=== PATIENT | male | born 1950 | race Caucasian/White ===

== ENCOUNTER → 2018-01-18 08:49 | Outpatient (CLI) | payer MEDICARE, SELFPAY | PROVIDERS: PCP Family Medicine; Visit Provider Family Medicine | DX: R00.2 Palpitations (principal) | CPT/HCPCS: 93005 ==

== ENCOUNTER 2018-04-08 12:17 | Observation (INO) ==
[2018-04-08 13:28] LABS: Alanine Aminotransferase 61 U/L (12-78); Albumin Level 3.8 gm/dL (3.4-5.0); Albumin/Globulin Ratio 0.9 (1.1-1.8); Alkaline Phosphatase 59 U/L (46-116); Aspartate Amino Transferase 38 U/L (15-37); Bilirubin,Total 1.1 mg/dL (0.2-1.0); Blood Urea Nitrogen 25 mg/dL (7-18); Carbon Dioxide 26 mmol/L (21.0-32.0); Chloride 97 mmol/L (98-107); Creatine Kinase 72 U/L (39-308); Globulin 4.2 gm/dl (1.3-3.2); Glucose 172 mg/dL (74-106); Sodium 135 mmol/L (136-145); Thyroid Stimulating Hormone 2.62 uIU/ml (0.358-3.740)
[2018-04-08 14:00] LABS: Acetone, Serum (Rapid) None Detected (None Detect)
[2018-04-08 14:18] LABS: Basophils % 0.2 % (0.1-2.0); Eosinophils % 0.1 % (0.1-12.0); Hematocrit 51.2 % (42.0-52.0); Hemoglobin 17.6 g/dL (14.1-18.0); Lymphocytes # 0.7 K/mm3 (0.7-4.5); Lymphocytes % 18.6 K/mm3 (10-50); Mean Corpuscular HGB Conc 34.3 g/dL (31.8-35.4); Mean Corpuscular Hemoglobin 30.4 pg (27.0-31.2); Mean Corpuscular Volume 88.6 fl (80-94); Monocytes # 0.3 K/mm3 (0.1-1.0); Monocytes % 8.1 % (1.7-9.3); Neutrophils # 2.9 K/mm3 (1.8-7.8); Platelet Count 117 K/mm3 (142-424); Red Blood Count 5.78 M/mm3 (4.60-6.20); Red Cell Distribution Width 12.5 % (11.5-17.5); White Blood Count 3.9 K/mm3 (4.8-10.8)
--- NOTE | 2018-04-08 15:57 | Consult Report ---
History of Present Illness Consult date: 04/08/18 Requesting physician: Bryon Chance Consult reason: chest pain Chief complaint: Chest pain, SOA Additional Medical History:: 1. Type 2 diabetes mellitus 2. Dyslipidemia 3. 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 Unstable angina pectoris, 04/08/18, with abnormal EKG History of present illness: 67-year-old white male with history of type 2 diabetes mellitus presents with increasing episodes of chest pain and shortness of breath over the last several weeks. Patient is a very active male but has noticed a decrease in exercise tolerance this week with associated left-sided chest pain radiating into the shoulder and the jaw. Not particularly associated with exertion but the shortness of breath is worse with exertion and improves with rest. Patient was seen in primary care office today with concern for unstable angina and therefore referred to cardiology for further evaluation. Patient's EKG is sinus with frequent ventricular ectopy and poor R wave progression anteriorly without acute ST segment changes. Due to the patient's symptoms and history of diabetes, it was felt patient was having unstable angina and the best course would be [facility] Medical History: Reports:: Diabetes Mellitus Type 2, Gastroesophageal Reflux Disease(GERD), Hyperlipidemia Meds Home Medications Medication Instructions Recorded Confirmed Type atorvastatin 10 mg tablet 10 mg PO QHS tab 04/08/18 04/08/18 History dapagliflozin 10 mg tablet 10 mg PO DAILY 04/08/18 04/08/18 History metformin 1,000 mg tablet 1,000 mg PO BID 04/08/18 04/08/18 History multivitamin tablet 1 tab PO DAILY 04/08/18 04/08/18 History pantoprazole 40 mg tablet,delayed 40 mg PO DAILY 04/08/18 04/08/18 History release tamsulosin 0.4 mg capsule 0.4 mg PO DAILY 04/08/18 04/08/18 History Allergies Allergy/AdvReac Type Severity Reaction Status Date / Time ceftriaxone [From Rocephin] Allergy Mild Verified 04/08/18 14:54 Review of Systems - *Cardiovascular Reports chest pain, Reports shortness of breath with activity - *Respiratory Reports shortness of breath with activity - *Gastrointestinal Denies bright, red blood in stools, Denies loose stools - *Genitourinary Denies blood in urine - *Musculoskeletal Denies joint pain - *Neurologic Denies loss of vision, Denies memory loss, Denies other visual disturbances Exam Vital signs and Labs for Last 24 Hours: Laboratory Results - last 24 hr 04/08/18 12:42: Sodium 135 L, Potassium 4.0, Chloride 97 L, Carbon Dioxide 26, Anion Gap 16.0 H, BUN 25 H, Creatinine 1.14, Estimated GFR 64, Est GFR ( Amer) 78, Glucose 172 H, Calcium 9.0, Total Bilirubin 1.1 H, AST 38 H, ALT 61, Alkaline Phosphatase 59, Total Creatine Kinase 72, CK-MB (CK-2) 1.0, CK-MB (CK- 2) Rel Index 1.4, Troponin I < 0.02, Total Protein 8.0, Albumin 3.8, Globulin 4.2 H, Albumin/Globulin Ratio 0.9 L, TSH 2.62, Acetone Level None detected 04/08/18 12:42: Hemoglobin A1c 7.4 H 04/08/18 12:42: WBC 3.9 L, RBC 5.78, Hgb 17.6, Hct 51.2, MCV 88.6, MCH 30.4, MCHC 34.3, RDW 12.5, Plt Count 117 L, MPV 8.0, Neut % (Auto) 73.0, Lymph % (Auto) 18.6, [place] % (Auto) 8.1, Eos % (Auto) 0.1, Baso % (Auto) 0.2, Neut # (Auto) 2.9, Lymph # (Auto) 0.7, [place] # (Auto) 0.3, Eos # (Auto) 0.0, Baso # (Auto) 0.0 - *Routine Neck Exam Present: supple. Absent: JVD, carotid bruit - *Routine Respiratory Exam Present: CTA bilaterally. Absent: accessory muscle use, rales, rhonchi, wheezes - *Routine Cardiovascular Exam Present: RRR. Absent: murmur, gallop, rubs - *Routine Abdominal Exam Present: soft. Absent: tenderness, distended, guarding - *Routine Extremities Exam Absent: edema, calf tenderness Comments: Left below the knee amputation - *Routine Neurological Exam Present: alert, oriented X3, moving all extremities Assessment and Plan (1) Unstable angina pectoris Current visit: Yes Status: Acute Category: Medical Code(s): I20.0 - Unstable angina (2) Abnormal ECG Current visit: No Status: Acute Category: Medical Code(s): R94.31 - Abnormal electrocardiogram [ECG] [EKG] (3) Dyspnea Current visit: No Status: Acute Qualifiers: Dyspnea type: dyspnea on exertion Qualified Code(s): R06.09 - Other forms of dyspnea Category: Medical Code(s): R06.00 - Dyspnea, unspecified (4) DM2 (diabetes mellitus, type 2) Current visit: No Status: Chronic Qualifiers: Diabetes mellitus turbine technician insulin use: without turbine technician use Diabetes mellitus complication status: without complication Qualified Code(s): E11.9 - Type 2 diabetes mellitus without complications Category: Medical Code(s): E11.9 - Type 2 diabetes mellitus without complications (5) Family history of ischemic heart disease before age 50 Current visit: No Status: Chronic Category: Medical Code(s): Z82.49 - Family history of ischemic heart disease and other diseases of the circulatory system (6) HLD (hyperlipidemia) Current visit: No Status: Chronic Qualifiers: Hyperlipidemia type: unspecified Qualified Code(s): E78.5 - Hyperlipidemia, unspecified Category: Medical Code(s): E78.5 - Hyperlipidemia, unspecified - Assessment and plan all Dx Assessment and Plan for all problems:: 1. Start aspirin 324 mg today then 81 mg daily thereafter. 2. Start heparin drip 3. Start nitroglycerin paste 4. Start beta-emmett therapy 5. Obtain echocardiogram today to evaluate for wall motion abnormality in light of abnormal EKG. 6. Plan for cardiac catheterization tomorrow to evaluate unstable angina and diabetic patient.
--- NOTE | 2018-04-08 15:57 | History & Physical Report ---
*Admission Date: 04/08/18 <Akila Mead 04/08/18 16:03> *Chief complaint: Chest pain <Akila Mead 04/08/18 16:03> *History of present illness: Mr. Riley is a 67yo male who presented to the office of [facility] today with a history of over 1 week of CP. He stated he felt like he got "hit by a truck" and at first thought it may be some of his medications causing the pain. The patient c/o pain in the center of the chest and it radiates to his left shoulder and neck and into the back. It has been constant and he has been having night sweats the past 2-3 nights to the point of changing his sheets and blankets. The pain began to get worse Thursday and he now has trouble even taking a deep breath. His blood pressure has been elevated. He was evaluated in the office and had labs and an EKG. His initial troponin was normal and his EKG showed nonspecific ST changes and a poor R wave progression. His case was discussed with cardiology and it was felt he would need a cath tomorrow am. He went down to the cardiology office for preop testing and they felt he needed to be admitted overnight and placed on a heparin drip. He will have the cath tomorrow am. <Akila Mead 04/08/18 17:18> [facility] History Medical History: Reports:: Diabetes Mellitus Type 2, Gastroesophageal Reflux Disease(GERD), Hyperlipidemia <Akila Mead 04/08/18 16:03> Comment: insomnia, left leg compound tib/fib fx with post op osteomyelitis that required a left leg BKA <Akila Mead 04/08/18 16:03> Other Surgeries: Yes: Other (left hand, back sx, multiple sx's for left leg osteomyelitis) <Akila Mead 04/08/18 16:03> Amputation: Yes (left BKA) <Akila Mead 04/08/18 16:03> Fractures: Yes (left tib/fib) <Akila Mead 04/08/18 16:03> - *Social History Smoking Status: Never smoker <Akila Mead 04/08/18 16:03> *Family Hx:: Coronary Artery Disease, Diabetes, Hyperlipidemia, Hypertension <[place] - 04/08/18 17:18> Review of Systems - Constitutional Reports fatigue, Reports night sweats, Reports weakness, Reports weight loss <Akila Mead 04/08/18 16:03> - Eyes Denies blurry vision, Denies double vision <Akila Mead 04/08/18 16:03> - ENT Denies nasal congestion, Denies sore throat <Akila Mead 04/08/18 16:03> - *Cardiovascular Reports chest pain, Reports shortness of breath, Denies rapid, pounding, or irregular heartbeat <Akila Mead 04/08/18 16:03> - *Respiratory Reports shortness of breath, Denies cough <Akila Mead 04/08/18 16:03> - *Gastrointestinal Reports loose stools, Denies abdominal pain, Denies nausea, Denies vomiting <Akila Mead 04/08/18 16:03> - *Genitourinary Denies difficulty urinating, Denies painful urination, Denies blood in urine <Akila Mead 04/08/18 16:03> - *Musculoskeletal Reports joint pain (pain from chest radiates to left shoulder and into back) <Akila Mead 04/08/18 16:03> - *Neurologic Reports weakness, Denies headache(s) <Akila Mead 04/08/18 16:03> Meds Home Medications Medication Instructions Recorded Confirmed Type atorvastatin 10 mg tablet 10 mg PO QHS tab 04/08/18 04/08/18 History dapagliflozin 10 mg tablet 10 mg PO DAILY 04/08/18 04/08/18 History metformin 1,000 mg tablet 1,000 mg PO BID 04/08/18 04/08/18 History multivitamin tablet 1 tab PO DAILY 04/08/18 04/08/18 History pantoprazole 40 mg tablet,delayed 40 mg PO DAILY 04/08/18 04/08/18 History release tamsulosin 0.4 mg capsule 0.4 mg PO DAILY 04/08/18 04/08/18 History <[place],Bryon - 04/08/18 17:33> Allergies Allergy/AdvReac Type Severity Reaction Status Date / Time ceftriaxone [From Rocephin] Allergy Mild Verified 04/08/18 14:54 <Bryon Chance - 04/08/18 17:33> Exam Vital signs and Labs for Last 24 Hours: Temp Pulse Resp BP Pulse Ox 97.8 F 46 L 18 150/77 H 95 04/08/18 16:26 04/08/18 16:26 04/08/18 16:26 04/08/18 16:26 04/08/18 16:26 Laboratory Results - last 24 hr 04/08/18 12:42: Sodium 135 L, Potassium 4.0, Chloride 97 L, Carbon Dioxide 26, Anion Gap 16.0 H, BUN 25 H, Creatinine 1.14, Estimated GFR 64, Est GFR ( Amer) 78, Glucose 172 H, Calcium 9.0, Total Bilirubin 1.1 H, AST 38 H, ALT 61, Alkaline Phosphatase 59, Total Creatine Kinase 72, CK-MB (CK-2) 1.0, CK-MB (CK- 2) Rel Index 1.4, Troponin I < 0.02, Total Protein 8.0, Albumin 3.8, Globulin 4.2 H, Albumin/Globulin Ratio 0.9 L, TSH 2.62, Acetone Level None detected 04/08/18 12:42: Hemoglobin A1c 7.4 H 04/08/18 12:42: WBC 3.9 L, RBC 5.78, Hgb 17.6, Hct 51.2, MCV 88.6, MCH 30.4, MCHC 34.3, RDW 12.5, Plt Count 117 L, MPV 8.0, Neut % (Auto) 73.0, Lymph % (Auto) 18.6, [place] % (Auto) 8.1, Eos % (Auto) 0.1, Baso % (Auto) 0.2, Neut # (Auto) 2.9, Lymph # (Auto) 0.7, [place] # (Auto) 0.3, Eos # (Auto) 0.0, Baso # (Auto) 0.0 04/08/18 16:45: APTT 28.4 <Bryon Chance - 04/08/18 17:33> Laboratory Results - last 24 hr 04/08/18 12:42: Sodium 135 L, Potassium 4.0, Chloride 97 L, Carbon Dioxide 26, Anion Gap 16.0 H, BUN 25 H, Creatinine 1.14, Estimated GFR 64, Est GFR ( Amer) 78, Glucose 172 H, Calcium 9.0, Total Bilirubin 1.1 H, AST 38 H, ALT 61, Alkaline Phosphatase 59, Total Creatine Kinase 72, CK-MB (CK-2) 1.0, CK-MB (CK- 2) Rel Index 1.4, Troponin I < 0.02, Total Protein 8.0, Albumin 3.8, Globulin 4.2 H, Albumin/Globulin Ratio 0.9 L, TSH 2.62, Acetone Level None detected 04/08/18 12:42: Hemoglobin A1c 7.4 H 04/08/18 12:42: WBC 3.9 L, RBC 5.78, Hgb 17.6, Hct 51.2, MCV 88.6, MCH 30.4, MCHC 34.3, RDW 12.5, Plt Count 117 L, MPV 8.0, Neut % (Auto) 73.0, Lymph % (Auto) 18.6, [place] % (Auto) 8.1, Eos % (Auto) 0.1, Baso % (Auto) 0.2, Neut # (Auto) 2.9, Lymph # (Auto) 0.7, [place] # (Auto) 0.3, Eos # (Auto) 0.0, Baso # (Auto) 0.0 <Akila Mead - 04/08/18 16:03> I & O for Last 24 hours: Intake & Output 04/06/18 04/07/18 04/08/18 04/09/18 11:59 11:59 11:59 11:59 Weight 219 lb 3.995 oz <[place],Bryon - 04/08/18 17:33> - Constitutional no acute distress <Akila Mead - 04/08/18 16:03> - *Routine HEENT Exam Head: Present: normocephalic <Akila Mead - 04/08/18 16:03> Eye: Present: EOMI, PERRL <Akila Mead - 04/08/18 16:03> ENT: Present: mucous membranes moist <Akila Mead - 04/08/18 16:03> - *Routine Neck Exam Present: supple. Absent: lymphadenopathy <Akila Mead - 04/08/18 16:03> - *Routine Respiratory Exam Present: CTA bilaterally <Akila Mead 04/08/18 16:03> - *Routine Cardiovascular Exam Present: RRR (frequent ectopics) <Akila Mead 04/08/18 16:03> - *Routine Abdominal Exam Present: soft, normoactive bowel sounds. Absent: tenderness <Akila Mead 04/08/18 16:03> - *Routine Extremities Exam Present: amputation (left leg). Absent: cyanosis, clubbing, edema <Akila Mead 04/08/18 16:03> - *Routine Skin Exam Present: warm. Absent: rash [facility] - *Routine Neurological Exam Present: alert, oriented X3 [facility]08[facility] 16:03> H&P: Result - Impressions CXR -nothing acute <Akila Mead 04/08/18 16:05> Assessment and Plan (1) Chest pain Current visit: Yes Status: Acute Category: Medical Code(s): R07.9 - Chest pain, unspecified (2) Abnormal ECG Current visit: No Status: Acute Category: Medical Code(s): R94.31 - Abnormal electrocardiogram [ECG] [EKG] (3) Dyspnea Current visit: No Status: Acute Qualifiers: Dyspnea type: dyspnea on exertion Qualified Code(s): R06.09 - Other forms of dyspnea Category: Medical Code(s): R06.00 - Dyspnea, unspecified (4) Weight loss Current visit: No Status: Acute Category: Medical Code(s): R63.4 - Abnormal weight loss (5) DM2 (diabetes mellitus, type 2) Current visit: No Status: Chronic Qualifiers: Diabetes mellitus mcfp insulin use: without termite technician use Diabetes mellitus complication status: without complication Qualified Code(s): E11.9 - Type 2 diabetes mellitus without complications Category: Medical Code(s): E11.9 - Type 2 diabetes mellitus without complications (6) Family history of ischemic heart disease before age 50 Current visit: No Status: Chronic Category: Medical Code(s): Z82.49 - Family history of ischemic heart disease and other diseases of the circulatory system (7) HLD (hyperlipidemia) Current visit: No Status: Chronic Qualifiers: Hyperlipidemia type: unspecified Qualified Code(s): E78.5 - Hyperlipidemia, unspecified Category: Medical Code(s): E78.5 - Hyperlipidemia, unspecified (8) History of left below knee amputation Current visit: No Status: Chronic Category: Medical Code(s): Z89.512 - Acquired absence of left leg below knee (9) History of osteomyelitis Current visit: No Status: Chronic Category: Medical Code(s): Z87.39 - Personal history of other diseases of the musculoskeletal system and connective tissue <Bryon Chance - 04/08/18 17:33> (1) Chest pain Current visit: Yes Status: Acute Category: Medical Code(s): R07.9 - Chest pain, unspecified (2) Abnormal ECG Current visit: No Status: Acute Category: Medical Code(s): R94.31 - Abnormal electrocardiogram [ECG] [EKG] (3) Dyspnea Current visit: No Status: Acute Qualifiers: Dyspnea type: dyspnea on exertion Qualified Code(s): R06.09 - Other forms of dyspnea Category: Medical Code(s): R06.00 - Dyspnea, unspecified (4) Weight loss Current visit: No Status: Acute Category: Medical Code(s): R63.4 - Abnormal weight loss (5) DM2 (diabetes mellitus, type 2) Current visit: No Status: Chronic Qualifiers: Diabetes mellitus termite technician insulin use: without termite technician use Diabetes mellitus complication status: without complication Qualified Code(s): E11.9 - Type 2 diabetes mellitus without complications Category: Medical Code(s): E11.9 - Type 2 diabetes mellitus without complications (6) Family history of ischemic heart disease before age 50 Current visit: No Status: Chronic Category: Medical Code(s): Z82.49 - Family history of ischemic heart disease and other diseases of the circulatory system (7) HLD (hyperlipidemia) Current visit: No Status: Chronic Qualifiers: Hyperlipidemia type: unspecified Qualified Code(s): E78.5 - Hyperlipidemia, unspecified Category: Medical Code(s): E78.5 - Hyperlipidemia, unspecified (8) History of left below knee amputation Current visit: No Status: Chronic Category: Medical Code(s): Z89.512 - Acquired absence of left leg below knee (9) History of osteomyelitis Current visit: No Status: Chronic Category: Medical Code(s): Z87.39 - Personal history of other diseases of the musculoskeletal system and connective tissue <Akila Mead - 04/08/18 17:17> - Assessment and plan all Dx Assessment and Plan for all problems:: Saw patient in the office and again here in the hospital, agree with above note. <Bryon Chance - 04/08/18 17:33> Pt will be admitted and started on a heparin drip. He will be scheduled for a heart cath tomorrow am. Cardiology consult appreciated. <Akila Mead - 04/08/18 17:18>
--- NOTE | 2018-04-09 07:38 | Pharmacy Consult Notes ---
[facility] Pharmacy VTE Monitoring - Patient Demographics Admission date: 04/08/18 Report Date: 04/09/18 Time: 07:38 Allergies/Adverse Reactions: Patient Allergies ceftriaxone [From Rocephin] Allergy (Mild, Verified 04/08/18 14:54) Height: 1.88 m Weight: 99.45 kg Patient Problems: Current Active Problems Chest pain (Acute) - VTE Risk Labs: VTE Related Lab Results Hgb 17.6 g/dL (14.1-18.0) 04/08/18 12:42 Hct 51.2 % (42.0-52.0) 04/08/18 12:42 Plt Count 117 K/mm3 (142-424) L 04/08/18 12:42 APTT 34.9 seconds (23.6-34.0) H 04/08/18 23:05 BUN 25 mg/dL (7-18) H 04/08/18 12:42 Creatinine 1.14 mg/dL (0.70-1.30) 04/08/18 12:42 Was VTE Risk Assessment Performed: Yes VTE Score: 4 VTE Risk Level: Low Risk Clinical Trial Participant: No - Prophylaxis VTE Prophylaxis Ordered?: Yes Types of VTE Prophylaxis: TEDS Knee High, Pharmacological (heparin drip)
--- NOTE | 2018-04-09 08:08 | Progress Note ---
<Akila Mead - Last Filed: 04/09/18 08:06> Internal Medicine - PN: Subj *Date: 04/09/18 *Time: 08:07 Interval history: Patient states he is not feeling well this morning. He tried to get up and move around and did get short of breath. He denies any more chest pain. He states he just feels weak and tired. Exam Vital signs and Labs for Last 24 Hours: Temp Pulse Resp BP Pulse Ox 97.9 F 60 18 112/67 93 L 04/09/18 07:33 04/09/18 07:33 04/09/18 07:33 04/09/18 07:33 04/09/18 07:33 Laboratory Results - last 24 hr 04/08/18 12:42: Sodium 135 L, Potassium 4.0, Chloride 97 L, Carbon Dioxide 26, Anion Gap 16.0 H, BUN 25 H, Creatinine 1.14, Estimated GFR 64, Est GFR ( Amer) 78, Glucose 172 H, Calcium 9.0, Total Bilirubin 1.1 H, AST 38 H, ALT 61, Alkaline Phosphatase 59, Total Creatine Kinase 72, CK-MB (CK-2) 1.0, CK-MB (CK- 2) Rel Index 1.4, Troponin I < 0.02, Total Protein 8.0, Albumin 3.8, Globulin 4.2 H, Albumin/Globulin Ratio 0.9 L, TSH 2.62, Acetone Level None detected 04/08/18 12:42: Hemoglobin A1c 7.4 H 04/08/18 12:42: WBC 3.9 L, RBC 5.78, Hgb 17.6, Hct 51.2, MCV 88.6, MCH 30.4, MCHC 34.3, RDW 12.5, Plt Count 117 L, MPV 8.0, Neut % (Auto) 73.0, Lymph % (Auto) 18.6, [place] % (Auto) 8.1, Eos % (Auto) 0.1, Baso % (Auto) 0.2, Neut # (Auto) 2.9, Lymph # (Auto) 0.7, Randolph # (Auto) 0.3, Eos # (Auto) 0.0, Baso # (Auto) 0.0 04/08/18 16:45: APTT 28.4 04/08/18 23:05: APTT 34.9 H 04/09/18 05:44: POC Glucose 153 H 04/09/18 07:30: APTT 38.1 H I & O for Last 24 hours: Intake & Output 04/06/18 04/07/18 04/08/18 04/09/18 11:59 11:59 11:59 11:59 Intake Total 506 / 506 Balance 506 / 506 Weight 219 lb 4 oz - Constitutional no acute distress - *Routine Respiratory Exam Present: CTA bilaterally - *Routine Cardiovascular Exam Present: RRR - *Routine Abdominal Exam Present: soft, normoactive bowel sounds. Absent: tenderness - *Routine Extremities Exam Absent: cyanosis, clubbing, edema Assessment and Plan (1) Chest pain Current visit: Yes Status: Acute Category: Medical Code(s): R07.9 - Chest pain, unspecified (2) Abnormal ECG Current visit: No Status: Acute Category: Medical Code(s): R94.31 - Abnormal electrocardiogram [ECG] [EKG] (3) Dyspnea Current visit: No Status: Acute Qualifiers: Dyspnea type: dyspnea on exertion Qualified Code(s): R06.09 - Other forms of dyspnea Category: Medical Code(s): R06.00 - Dyspnea, unspecified (4) Weight loss Current visit: No Status: Acute Category: Medical Code(s): R63.4 - Abnormal weight loss (5) DM2 (diabetes mellitus, type 2) Current visit: No Status: Chronic Qualifiers: Diabetes mellitus health promotion officer insulin use: without shelter use Diabetes mellitus complication status: without complication Qualified Code(s): E11.9 - Type 2 diabetes mellitus without complications Category: Medical Code(s): E11.9 - Type 2 diabetes mellitus without complications (6) Family history of ischemic heart disease before age 50 Current visit: No Status: Chronic Category: Medical Code(s): Z82.49 - Family history of ischemic heart disease and other diseases of the circulatory system (7) HLD (hyperlipidemia) Current visit: No Status: Chronic Qualifiers: Hyperlipidemia type: unspecified Qualified Code(s): E78.5 - Hyperlipidemia, unspecified Category: Medical Code(s): E78.5 - Hyperlipidemia, unspecified (8) History of left below knee amputation Current visit: No Status: Chronic Category: Medical Code(s): Z89.512 - Acquired absence of left leg below knee (9) History of osteomyelitis Current visit: No Status: Chronic Category: Medical Code(s): Z87.39 - Personal history of other diseases of the musculoskeletal system and connective tissue - Assessment and plan all Dx Assessment and Plan for all problems:: Patient to have a heart cath today. <Bryon Chance - Last Filed: 04/09/18 08:51> Exam Vital signs and Labs for Last 24 Hours: Temp Pulse Resp BP Pulse Ox 97.9 F 60 16 112/67 94 L 04/09/18 07:33 04/09/18 07:33 04/09/18 08:00 04/09/18 07:33 04/09/18 08:00 Laboratory Results - last 24 hr 04/08/18 12:42: Sodium 135 L, Potassium 4.0, Chloride 97 L, Carbon Dioxide 26, Anion Gap 16.0 H, BUN 25 H, Creatinine 1.14, Estimated GFR 64, Est GFR ( Amer) 78, Glucose 172 H, Calcium 9.0, Total Bilirubin 1.1 H, AST 38 H, ALT 61, Alkaline Phosphatase 59, Total Creatine Kinase 72, CK-MB (CK-2) 1.0, CK-MB (CK- 2) Rel Index 1.4, Troponin I < 0.02, Total Protein 8.0, Albumin 3.8, Globulin 4.2 H, Albumin/Globulin Ratio 0.9 L, TSH 2.62, Acetone Level None detected 04/08/18 12:42: Hemoglobin A1c 7.4 H 04/08/18 12:42: WBC 3.9 L, RBC 5.78, Hgb 17.6, Hct 51.2, MCV 88.6, MCH 30.4, MCHC 34.3, RDW 12.5, Plt Count 117 L, MPV 8.0, Neut % (Auto) 73.0, Lymph % (Auto) 18.6, [place] % (Auto) 8.1, Eos % (Auto) 0.1, Baso % (Auto) 0.2, Neut # (Auto) 2.9, Lymph # (Auto) 0.7, [place] # (Auto) 0.3, Eos # (Auto) 0.0, Baso # (Auto) 0.0 04/08/18 16:45: APTT 28.4 04/08/18 23:05: APTT 34.9 H 04/09/18 05:44: POC Glucose 153 H 04/09/18 07:30: APTT 38.1 H I & O for Last 24 hours: Intake & Output 04/06/18 04/07/18 04/08/18 04/09/18 11:59 11:59 11:59 11:59 Intake Total 506 / 506 Balance 506 / 506 Weight 219 lb 4 oz Assessment and Plan (1) Chest pain Current visit: Yes Status: Acute Category: Medical Code(s): R07.9 - Chest pain, unspecified (2) Abnormal ECG Current visit: No Status: Acute Category: Medical Code(s): R94.31 - Abnormal electrocardiogram [ECG] [EKG] (3) Dyspnea Current visit: No Status: Acute Qualifiers: Dyspnea type: dyspnea on exertion Qualified Code(s): R06.09 - Other forms of dyspnea Category: Medical Code(s): R06.00 - Dyspnea, unspecified (4) Weight loss Current visit: No Status: Acute Category: Medical Code(s): R63.4 - Abnormal weight loss (5) DM2 (diabetes mellitus, type 2) Current visit: No Status: Chronic Qualifiers: Diabetes mellitus health promotion officer insulin use: without shelter use Diabetes mellitus complication status: without complication Qualified Code(s): E11.9 - Type 2 diabetes mellitus without complications Category: Medical Code(s): E11.9 - Type 2 diabetes mellitus without complications (6) Family history of ischemic heart disease before age 50 Current visit: No Status: Chronic Category: Medical Code(s): Z82.49 - Family history of ischemic heart disease and other diseases of the circulatory system (7) HLD (hyperlipidemia) Current visit: No Status: Chronic Qualifiers: Hyperlipidemia type: unspecified Qualified Code(s): E78.5 - Hyperlipidemia, unspecified Category: Medical Code(s): E78.5 - Hyperlipidemia, unspecified (8) History of left below knee amputation Current visit: No Status: Chronic Category: Medical Code(s): Z89.512 - Acquired absence of left leg below knee (9) History of osteomyelitis Current visit: No Status: Chronic Category: Medical Code(s): Z87.39 - Personal history of other diseases of the musculoskeletal system and connective tissue - Assessment and plan all Dx Assessment and Plan for all problems:: Saw patient, agree with above note.
--- NOTE | 2018-04-09 09:30 | Progress Note ---
Addendum entered and electronically signed by DYLAN Kelley 04/09/18 13:44: Pt had LHC today with stent placed to LAD. Preserved LVEF noted. Echo not performed, will consider ordering as outpatient. OK for discharge home later today. Recommended meds: ASA 81 mg daily Brilinta 90 mg BID Atorvastatin 40 mg daily Metoprolol tartrate 12.5 mg BID Follow up in our office in one week. Original Note: Subjective Date: 04/09/18 Time: 09:29 Principal diagnosis: Unstable angina pectoris Interval history: 67-year-old white male in bed in no acute distress. Chest pain resolved with nitroglycerin paste overnight. Patient still feels fatigued and short of breath with minimal exertion. Cardiac troponins overnight normal. Patient is ready for cardiac catheterization. Exam Vital signs and Labs for Last 24 Hours: Temp Pulse Resp BP Pulse Ox 97.9 F 60 16 112/67 94 L 04/09/18 07:33 04/09/18 07:33 04/09/18 08:00 04/09/18 07:33 04/09/18 08:00 Laboratory Results - last 24 hr 04/08/18 12:42: Sodium 135 L, Potassium 4.0, Chloride 97 L, Carbon Dioxide 26, Anion Gap 16.0 H, BUN 25 H, Creatinine 1.14, Estimated GFR 64, Est GFR ( Amer) 78, Glucose 172 H, Calcium 9.0, Total Bilirubin 1.1 H, AST 38 H, ALT 61, Alkaline Phosphatase 59, Total Creatine Kinase 72, CK-MB (CK-2) 1.0, CK-MB (CK- 2) Rel Index 1.4, Troponin I < 0.02, Total Protein 8.0, Albumin 3.8, Globulin 4.2 H, Albumin/Globulin Ratio 0.9 L, TSH 2.62, Acetone Level None detected 04/08/18 12:42: Hemoglobin A1c 7.4 H 04/08/18 12:42: WBC 3.9 L, RBC 5.78, Hgb 17.6, Hct 51.2, MCV 88.6, MCH 30.4, MCHC 34.3, RDW 12.5, Plt Count 117 L, MPV 8.0, Neut % (Auto) 73.0, Lymph % (Auto) 18.6, [place] % (Auto) 8.1, Eos % (Auto) 0.1, Baso % (Auto) 0.2, Neut # (Auto) 2.9, Lymph # (Auto) 0.7, [place] # (Auto) 0.3, Eos # (Auto) 0.0, Baso # (Auto) 0.0 04/08/18 16:45: APTT 28.4 04/08/18 23:05: APTT 34.9 H 04/09/18 05:44: POC Glucose 153 H 04/09/18 07:30: APTT 38.1 H I & O for Last 24 hours: Intake & Output 04/06/18 04/07/18 04/08/18 04/09/18 11:59 11:59 11:59 11:59 Intake Total 506 / 506 Balance 506 / 506 Weight 219 lb 4 oz - *Routine Respiratory Exam Present: CTA bilaterally. Absent: accessory muscle use, rales, rhonchi, wheezes - *Routine Cardiovascular Exam Present: RRR. Absent: murmur, gallop, rubs Progress Note: A&P (1) Unstable angina pectoris Status: Acute Current Visit: Yes (2) Abnormal ECG Status: Acute Current Visit: No (3) Dyspnea Status: Acute Current Visit: No (4) DM2 (diabetes mellitus, type 2) Status: Chronic Current Visit: No (5) Family history of ischemic heart disease before age 50 Status: Chronic Current Visit: No (6) HLD (hyperlipidemia) Status: Chronic Current Visit: No Assessment and Plan for All Diagnoses:: Proceed with left heart catheterization today. Further recommendations to follow. Echocardiogram results pending.
--- NOTE | 2018-04-09 14:43 | Pharmacy Consult Notes ---
[facility] Pharmacy Heparin Dosing - Demographic Data Admission date:: 04/08/18 Date: 04/09/18 Time: 14:38 Allergies/Adverse Reactions: Allergies Allergy/AdvReac Type Severity Reaction Status Date / Time ceftriaxone [From Rocephin] Allergy Mild Verified 04/08/18 14:54 Height: 1.88 m Weight: 99.45 kg - Indication Medication therapy:: Heparin Patient Problems: Current Active Problems Chest pain (Acute) Unstable angina pectoris (Acute) CVA?: No Bleeding problem?: No Kidney disease?: No RI?: No Desired PTT range:: 60-80 seconds - Monitoring Dose Monitor 1 Date: 04/08/18 Time: 16:30 PTT Result:: 28.4 Infusion Rate:: 1000 UNITS/HR=20 ML/HR Comment:: BASELINE PTT VVC=862 4000 UNIT BOLUS Dose Monitor 2 Date: 04/08/18 Time: 23:00 PTT Result:: 34.9 Infusion Rate:: 25 ML/HR Dose Monitor 3 Date: 04/09/18 Time: 07:00 PTT Result:: 38.1 Infusion Rate:: 29 ML/HR - Core Measures Is INR > or = 2 at discharge?: No Most Recent Labs:: Laboratory Results - last 24 hr 04/08/18 16:45: APTT 28.4 04/08/18 23:05: APTT 34.9 H 04/09/18 05:44: POC Glucose 153 H 04/09/18 07:30: APTT 38.1 H 04/09/18 12:23: Activated Clotting Time 374 H* If INR was < than 2.0 why was therapy stopped?: PATIENT WENT TO [employer] [employer] AND RECEIVED A STENT...HEPARIN DRIP DC'Paul BY [facility] Were Heparin and Warfarin started on the same day?: No If not, why?: NOT INDICATED...RECEIVED STENT IN [employer]
[2018-04-10 06:00] LABS: Basophils % 0.4 % (0.1-2.0); Eosinophils % 0.6 % (0.1-12.0); Hematocrit 41.2 % (42.0-52.0); Hemoglobin 15.5 g/dL (14.1-18.0); Lymphocytes # 1.1 K/mm3 (0.7-4.5); Lymphocytes % 27.4 K/mm3 (10-50); Mean Corpuscular HGB Conc 37.7 g/dL (31.8-35.4); Mean Corpuscular Volume 87.6 fl (80-94); Mean Platelet Volume 7.9 fl (7.4-10.4); Monocytes # 0.4 K/mm3 (0.1-1.0); Monocytes % 10.5 % (1.7-9.3); Neutrophils # 2.5 K/mm3 (1.8-7.8); Neutrophils % 61.1 % (37.0-80.0); Platelet Count 115 K/mm3 (142-424); Red Cell Distribution Width 12.3 % (11.5-17.5); White Blood Count 4.1 K/mm3 (4.8-10.8)
[2018-04-10 06:04] LABS: Anion Gap 12.1 mEq/L (5-15); Calcium 8.3 mg/dL (8.5-10.1); Potassium 4.1 mmoL/L (3.5-5.1)
--- NOTE | 2018-04-10 09:32 | Progress Note ---
Internal Medicine - PN: Subj *Date: 04/10/18 *Time: 09:29 Interval history: Patient did well overnight, no chest pain, ready to go home. Exam Vital signs and Labs for Last 24 Hours: Temp Pulse Resp BP Pulse Ox 98.0 F 89 16 100/66 L 92 L 04/10/18 07:57 04/10/18 07:37 04/10/18 07:37 04/10/18 07:37 04/10/18 07:37 Laboratory Results - last 24 hr 04/09/18 12:23: Activated Clotting Time 374 H* 04/10/18 05:50: WBC 4.1 L, RBC 4.70, Hgb 15.5, Hct 41.2 L, MCV 87.6, MCH 33.0 H, MCHC 37.7 H, RDW 12.3, Plt Count 115 L, MPV 7.9, Neut % (Auto) 61.1, Lymph % (Auto) 27.4, [place] % (Auto) 10.5 H, Eos % (Auto) 0.6, Baso % (Auto) 0.4, Neut # (Auto) 2.5, Lymph # (Auto) 1.1, [place] # (Auto) 0.4, Eos # (Auto) 0.0, Baso # (Auto) 0.0 04/10/18 05:50: Sodium 136, Potassium 4.1, Chloride 100, Carbon Dioxide 28, Anion Gap 12.1, BUN 18 D, Creatinine 1.02, Estimated Creat Clear 100, Estimated GFR 73, Est GFR ( Amer) 88, Glucose 164 H, Calcium 8.3 L I & O for Last 24 hours: Intake & Output 04/07/18 04/08/18 04/09/18 04/10/18 11:59 11:59 11:59 11:59 Intake Total 506 / 506 986 / 986 Output Total 350 / 350 Balance 506 / 506 636 / 636 Weight 219 lb 4 oz 220 lb 7 oz - Constitutional no acute distress - *Routine HEENT Exam Head: Present: normocephalic Eye: Present: EOMI, PERRL ENT: Present: mucous membranes moist - *Routine Neck Exam Present: supple. Absent: lymphadenopathy - *Routine Respiratory Exam Present: CTA bilaterally - *Routine Cardiovascular Exam Present: RRR - *Routine Abdominal Exam Present: tenderness - *Routine Extremities Exam Absent: cyanosis, clubbing, edema - *Routine Skin Exam Present: warm. Absent: rash - *Routine Neurological Exam Present: alert, oriented X3 Assessment and Plan (1) Unstable angina pectoris Current visit: Yes Status: Acute Category: Medical Code(s): I20.0 - Unstable angina (2) Abnormal ECG Current visit: No Status: Acute Category: Medical Code(s): R94.31 - Abnormal electrocardiogram [ECG] [EKG] (3) Dyspnea Current visit: No Status: Acute Qualifiers: Dyspnea type: dyspnea on exertion Qualified Code(s): R06.09 - Other forms of dyspnea Category: Medical Code(s): R06.00 - Dyspnea, unspecified (4) DM2 (diabetes mellitus, type 2) Current visit: No Status: Chronic Qualifiers: Diabetes mellitus snf insulin use: without snf use Diabetes mellitus complication status: without complication Qualified Code(s): E11.9 - Type 2 diabetes mellitus without complications Category: Medical Code(s): E11.9 - Type 2 diabetes mellitus without complications (5) Family history of ischemic heart disease before age 50 Current visit: No Status: Chronic Category: Medical Code(s): Z82.49 - Family history of ischemic heart disease and other diseases of the circulatory system (6) HLD (hyperlipidemia) Current visit: No Status: Chronic Qualifiers: Hyperlipidemia type: unspecified Qualified Code(s): E78.5 - Hyperlipidemia, unspecified Category: Medical Code(s): E78.5 - Hyperlipidemia, unspecified (7) CAD (coronary artery disease), [place] coronary artery Current visit: Yes Status: Acute Category: Medical Code(s): I25.10 - Atherosclerotic heart disease of [place] coronary artery without angina pectoris (8) Status post insertion of drug-eluting stent into left anterior descending (LAD) artery Current visit: Yes Status: Acute Category: Medical Code(s): Z95.5 - Presence of coronary angioplasty implant and graft - Assessment and plan all Dx Assessment and Plan for all problems:: OK for discharge today. Patient already has his Brilinta Rx. He will resume Metformin on 04/12/18. Plan f/u with Dr. Salinas in [address] Chance in 2 weeks.
--- NOTE | 2018-04-11 22:33 | Discharge Summary ---
General - General Admission date:: 04/08/18 Discharge date: 04/10/18 HPI HPI: Mr. Riley is a 67yo male who presented to the office of [facility] today with a history of over 1 week of CP. He stated he felt like he got "hit by a truck" and at first thought it may be some of his medications causing the pain. The patient c/o pain in the center of the chest and it radiates to his left shoulder and neck and into the back. It has been constant and he has been having night sweats the past 2-3 nights to the point of changing his sheets and blankets. The pain began to get worse Thursday afternoon and he now has trouble even taking a deep breath. His blood pressure has been elevated. He was evaluated in the office and had labs and an EKG. His initial troponin was normal and his EKG showed nonspecific ST changes and a poor R wave progression. His case was discussed with cardiology and it was felt he would need a cath tomorrow am. He went down to the cardiology office for preop testing and they felt he needed to be admitted overnight and placed on a heparin drip. He will have the cath tomorrow am. Hospital Course Hospital Course: The patient was started on a full strength ASA on the day of admission and then 81 mg daily thereafter. He was started on a heparin drip, nitro paste, and a beta-emmett. The patient had the [facility] with a stent placed in the LAD. He had a preserved LVEF. He did well after the procedure and was stable to be discharged home. Cardiology recommended patient be discharged on ASA 81 mg daily, Brilinta 90 mg BID, Atorvastatin 40 mg daily, and Metoprolol tartrate 12.5 mg BID. He will f/u in the cardiology office in 1 week as well as in the office of [facility]. He will resume Metformin on 04/12/18. Objective Vital signs: Temp Pulse Resp BP Pulse Ox 98.0 F 80 16 100/66 L 92 L 04/10/18 07:57 04/10/18 08:00 04/10/18 07:37 04/10/18 07:37 04/10/18 07:37 Narrative: - Constitutional no acute distress - *Routine HEENT Exam Head: Present: normocephalic Eye: Present: EOMI, PERRL ENT: Present: mucous membranes moist - *Routine Neck Exam Present: supple. Absent: lymphadenopathy - *Routine Respiratory Exam Present: CTA bilaterally - *Routine Cardiovascular Exam Present: RRR (frequent ectopics) - *Routine Abdominal Exam Present: soft, normoactive bowel sounds. Absent: tenderness - *Routine Extremities Exam Present: amputation (left leg). Absent: cyanosis, clubbing, edema - *Routine Skin Exam Present: warm. Absent: rash - *Routine Neurological Exam Present: alert, oriented X3 DS: Diagnosis - Discharge Diagnosis (1) Unstable angina pectoris Status: Acute (2) Abnormal ECG Status: Acute (3) Dyspnea Status: Acute (4) DM2 (diabetes mellitus, type 2) Status: Chronic (5) Family history of ischemic heart disease before age 50 Status: Chronic (6) HLD (hyperlipidemia) Status: Chronic (7) CAD (coronary artery disease), [place] coronary artery Status: Acute (8) Status post insertion of drug-eluting stent into left anterior descending (LAD) artery Status: Acute Discharge Plan - Patient Discharge Instructions ACTIVITY: Continue current activity DIET: continue same diet Additional Instructions: Patient needs take home instructions for Left heart cath with stent placement. - Follow up Plan Follow up with: Bryon Chance MD [Primary Care Provider] - 2 weeks Suleman Salinas MD [Staff Physician] - 1 week Disposition: Home, Self-[facility] Medications: Home Medications Medication Instructions Recorded Confirmed Type atorvastatin 10 mg tablet 10 mg PO QHS tab 04/08/18 04/08/18 History dapagliflozin 10 mg tablet 10 mg PO DAILY 04/08/18 04/08/18 History metformin 1,000 mg tablet 1,000 mg PO BID 04/08/18 04/08/18 History multivitamin tablet 1 tab PO DAILY 04/08/18 04/08/18 History pantoprazole 40 mg tablet,delayed 40 mg PO DAILY 04/08/18 04/08/18 History release tamsulosin 0.4 mg capsule 0.4 mg PO DAILY 04/08/18 04/08/18 History Prescriptions/Medication Reconciliation: New Ticagrelor [Brilinta 90mg Tablet] 90 mg PO BID tablet Aspirin [Aspirin 81mg chewable tab] 81 mg PO DAILY tab.chew Continue multivitamin tablet 1 tab PO DAILY pantoprazole 40 mg tablet,delayed release 40 mg PO DAILY atorvastatin 10 mg tablet 10 mg PO QHS tab metformin 1,000 mg tablet 1,000 mg PO BID tamsulosin 0.4 mg capsule 0.4 mg PO DAILY dapagliflozin 10 mg tablet 10 mg PO DAILY
== END 2018-04-10 10:36 | disposition home or self-care (01) ==
LOC: 2ND 12:17 → RAD 12:17 → 2ND 15:49
PROVIDERS: ADMIT Family Medicine; ATTEND Family Medicine

== ENCOUNTER 2018-04-20 08:59 | Outpatient (RCR) | payer MEDICARE, SELFPAY | END 2018-07-01 16:38 | disposition home or self-care (01) | LOC: PT 08:59 | PROVIDERS: Visit Provider Internal Medicine | DX: R06.02 Shortness of breath (principal) | CPT/HCPCS: 93798 ==

== ENCOUNTER → 2018-04-20 10:09 | Outpatient (CLI) | payer MEDICARE, SELFPAY ==
[2018-04-20 12:50] LABS: Alanine Aminotransferase 41 U/L (12-78); Albumin Level 4.2 gm/dL (3.4-5.0); Alkaline Phosphatase 62 U/L (46-116); Anion Gap 12.7 mEq/L (5-15); Aspartate Amino Transferase 17 U/L (15-37); Bilirubin,Direct 0.2 mg/dL (0.0-0.2); Bilirubin,Indirect 0.7 mg/dL (0.0-0.9); Bilirubin,Total 0.9 mg/dL (0.2-1.0); Blood Urea Nitrogen 19 mg/dL (7-18); Calcium 9.4 mg/dL (8.5-10.1); Carbon Dioxide 30 mmol/L (21.0-32.0); Chloride 104 mmol/L (98-107); Chol/HDL Ratio 3.4 (1-3.5); Cholesterol 158 mg/dL (140-200); Creatinine,Serum 0.97 mg/dL (0.70-1.30); Estimated Glomerular Filt Rate 77 ml/min (>60); GFR (African American) 94 ML/MIN (>60); Glucose 148 mg/dL (74-106); HDL Cholesterol 47 mg/dL (27-67); LDL Cholesterol 92 mg/dL (0-130); Potassium 4.7 mmoL/L (3.5-5.1); Sodium 142 mmol/L (136-145); Total Protein,Serum 7.6 gm/dL (6.4-8.2); Triglycerides 93 mg/dL (30-200); VLDL Cholesterol 19 mg/dL (0-40)
== END ==
PROVIDERS: Visit Provider Urology
DX: E11.9 Type 2 diabetes mellitus without complications (principal); R06.00 Dyspnea, unspecified; E78.5 Hyperlipidemia, unspecified; R07.9 Chest pain, unspecified
CPT/HCPCS: 36415; 80048; 80061; 80076

== ENCOUNTER → 2018-04-21 10:59 | Outpatient (CLI) | payer MEDICARE, SELFPAY ==
--- NOTE | 2018-04-21 11:01 | CA_ITS ---
PROCEDURE: 2-D M-mode and color Doppler study INDICATIONS FOR THE TEST: Chest pain COPD Heart Murmur Tobacco Smoking Palpitations Fatigue Syncope Edema Hypertension Diabetes Mellitus+ Rheumatic Fever SOB+JOHNSON Obesity Hyperlipidemia+ Family History HD Additional History cad,stent 2 wks ago PATIENT INFORMATION HEIGHT: 74 WEIGHT:213 GENDER: Male B/P:124/80 2-D/M-MODE INTERPRETATION: 2-D MEASUREMENTS OBSERVED VALUES IN CMS Right Ventricular Dimension (RVDd) 2.5 Interventricular Septum (Thickness)(IVsd) 1.0 Left Ventricular Internal Dimensions(LVIDd) 3.8 Left Ventricular Posterior Wall (Thickness)(LVPWd) 0.6 Aortic Root 2.8 Aortic Cusp Separation 2.0 Left Atrial Dimensions (LAD) 3.7 2D 1. Left atrium is mildly enlarged, left ventricle is normal size, there is no concentric left ventricular hypertrophy, visually estimated ejection fraction 55% with no wall motion abnormality. 2. The right atrium and right ventricle are normal size and contractility. 3. The aortic valve is minimally thickened and fibrosed. 4. The mitral and tricuspid valve are grossly normal. 5. The pulmonic valve is poorly visualized. 6. No significant pericardial effusion noted. DOPPLER INTERROGATION: Doppler interrogation of the aortic, mitral and tricuspid valvular presence of mild aortic, mild mitral and tricuspid regurgitation, tricuspid regurgitation jet velocity is inadequate for calculation of the right ventricular systolic pressure, grade 1 diastolic dysfunction seen without tissue Doppler evidence of raised left atrial pressure. CONCLUSION: 1. Mildly enlarged left atrium, normal left ventricular size, visually estimated ejection fraction 55% with no regional wall motion abnormality, grade 1 diastolic dysfunction seen without tissue Doppler evidence of raised left atrial pressure. 2. Mild aortic, mild mitral and tricuspid regurgitation 3. No significant pericardial effusion noted.
== END ==
PROVIDERS: PCP Family Medicine; Visit Provider Internal Medicine Cardiovascular Disease
DX: I25.10 Atherosclerotic heart disease of native coronary artery without angina pectoris (principal)
CPT/HCPCS: 93306

== ENCOUNTER → 2018-05-19 12:50 | Outpatient (CLI) | payer MEDICARE, SELFPAY ==
--- NOTE | 2018-05-19 12:57 | XR_ITS ---
XR chest 2V HISTORY: ITS.REASON: COUGH ORDERING PHYSICIAN: Bryon Chance MD PATIENT AGE: 67 years COMPARISON: 04/08/2018 FINDINGS: The cardiomediastinal silhouette and pulmonary vascularity are within normal limits. Patchy densities present in the left lower lobe consistent with pneumonia. The remaining lungs are clear. No effusions. No acute bony findings. IMPRESSION: Left lower lobe pneumonia
== END ==
PROVIDERS: PCP Family Medicine; Visit Provider Family Medicine
DX: R05 Cough (principal)
CPT/HCPCS: 71046

== ENCOUNTER → 2018-05-24 15:30 | Outpatient (CLI) | payer MEDICARE, SELFPAY | PROVIDERS: PCP Family Medicine; Visit Provider Family Medicine | DX: G47.33 Obstructive sleep apnea (adult) (pediatric) (principal) | CPT/HCPCS: 95806 ==

== ENCOUNTER → 2018-05-27 11:12 | Outpatient (CLI) | payer MEDICARE, SELFPAY ==
--- NOTE | 2018-05-27 11:16 | XR_ITS ---
XR chest 2V HISTORY: ITS.REASON: PNEUMONIA ORDERING PHYSICIAN: Bryon Chance MD PATIENT AGE: 67 years COMPARISON: 05/19/2018 FINDINGS: The cardiomediastinal silhouette and pulmonary vascularity are within normal limits. There is coronary artery stent present There is been improvement in the left lower lobe pneumonia. Lungs are now clear. No acute bony abnormalities. IMPRESSION: Improvement in left lower lobe pneumonia
== END ==
PROVIDERS: PCP Family Medicine; Visit Provider Family Medicine
DX: J18.1 Lobar pneumonia, unspecified organism (principal)
CPT/HCPCS: 71046

== ENCOUNTER → 2018-06-04 10:23 | Outpatient (CLI) | payer MEDICARE, SELFPAY ==
--- NOTE | 2018-06-04 10:25 | XR_ITS ---
XR chest 2V HISTORY: ITS.REASON: PNEUMONIA ORDERING PHYSICIAN: Bryon Chance MD PATIENT AGE: 67 years COMPARISON: 05/27/2018 FINDINGS: The cardiomediastinal silhouette and pulmonary vascularity are within normal limits. The lungs are clear without infiltrates, suspicious nodules, or pleural effusions. No acute bony abnormalities. IMPRESSION: No change with no acute finding
== END ==
PROVIDERS: PCP Family Medicine; Visit Provider Family Medicine
DX: J18.1 Lobar pneumonia, unspecified organism (principal)
CPT/HCPCS: 71046

== ENCOUNTER → 2018-06-21 11:37 | Outpatient (CLI) | payer MEDICARE, SELFPAY ==
--- NOTE | 2018-06-21 | XR_ITS ---
XR chest 2V HISTORY: ITS.REASON: COUGH ORDERING PHYSICIAN: Bryon Chance MD PATIENT AGE: 67 years COMPARISON: PA and lateral chest 06/04/2018 FINDINGS: The cardiomediastinal silhouette and pulmonary vascularity are within normal limits. The lungs are clear without infiltrates, suspicious nodules, or pleural effusions. No acute bony abnormalities. There are calcified right hilar nodes seen. IMPRESSION: Negative chest, no acute finding
[2018-06-21 13:18] LABS: Alanine Aminotransferase 31 U/L (12-78); Albumin Level 3.8 gm/dL (3.4-5.0); Albumin/Globulin Ratio 1.2 (1.1-1.8); Alkaline Phosphatase 66 U/L (46-116); Anion Gap 14.5 mEq/L (5-15); Aspartate Amino Transferase 15 U/L (15-37); Bilirubin,Total 0.6 mg/dL (0.2-1.0); Blood Urea Nitrogen 25 mg/dL (7-18); Calcium 9.1 mg/dL (8.5-10.1); Carbon Dioxide 28 mmol/L (21.0-32.0); Chloride 105 mmol/L (98-107); Creatine Kinase 72 U/L (39-308); Creatine Kinase MB 0.7 ng/ml (0.0-3.6); Estimated Glomerular Filt Rate 67 ml/min (>60); GFR (African American) 81 ML/MIN (>60); Globulin 3.1 gm/dl (1.3-3.2); Glucose 137 mg/dL (74-106); Potassium 4.5 mmoL/L (3.5-5.1); Sodium 143 mmol/L (136-145); Total Protein,Serum 6.9 gm/dL (6.4-8.2); Troponin I < 0.02 ng/ml (0.00-0.06)
== END ==
PROVIDERS: PCP Family Medicine; Visit Provider Family Medicine
DX: R06.02 Shortness of breath (principal); R05 Cough; Z87.01 Personal history of pneumonia (recurrent)
CPT/HCPCS: 36415; 71046; 80053; 82550; 82553; 83880; 84484

== ENCOUNTER → 2018-06-28 12:50 | Outpatient (CLI) | payer MEDICARE, SELFPAY ==
[2018-06-28 13:20] VITALS: PULSE 69; PULSE 70
== END ==
PROVIDERS: PCP Family Medicine; Visit Provider Family Medicine
DX: R06.02 Shortness of breath (principal)
CPT/HCPCS: 94060; 94640

== ENCOUNTER → 2018-10-20 08:04 | Outpatient (CLI) | payer MEDICARE, SELFPAY ==
--- NOTE | 2018-10-20 08:12 | XR_ITS ---
XR knee LT 3V HISTORY: Prior below the knee amputation with pain in the amputation stump ITS.REASON: LT LEG PAIN ORDERING PHYSICIAN: Bryon Chance MD PATIENT AGE: 68 years COMPARISON: None FINDINGS: Status post below the knee . The knee joint has an unremarkable appearance. There are no previous exams available for comparison. The proximal tibia at the patient's site has an unremarkable appearance is well-circumscribed. There is some minimal subcortical lucency of the fibula at the amputation site. There are no previous exams for comparison to determine if this is new or old. This appearance may be due to thinning of the bone at this area as opposed to an area of erosion. If there is clinical concern for osteomyelitis then, MRI without and with contrast may be of further value. IMPRESSION: Prior below the knee amputation. There is some mild subcortical lucency at the amputation site of the proximal fibula possibly due to bony thinning. MRI without and with contrast may be of further value if osteomyelitis is a concern
== END ==
PROVIDERS: PCP Family Medicine; Visit Provider Family Medicine
DX: M79.605 Pain in left leg (principal); M25.562 Pain in left knee
CPT/HCPCS: 73562

== ENCOUNTER → 2018-11-22 08:30 | Outpatient (CLI) | payer MEDICARE, SELFPAY ==
[2018-11-22 09:38] LABS: Blood Urea Nitrogen 29 mg/dL (7-18); Creatinine,Serum 1.05 mg/dL (0.70-1.30); Estimated Glomerular Filt Rate 70 ml/min (>60); GFR (African American) 85 ML/MIN (>60)
== END ==
PROVIDERS: Visit Provider Family Medicine
DX: M79.605 Pain in left leg (principal)
CPT/HCPCS: 36415; 82565; 84520

== ENCOUNTER → 2018-11-24 08:12 | Outpatient (CLI) | payer MEDICARE, SELFPAY ==
--- NOTE | 2018-11-24 08:15 | MR_ITS ---
MR lower leg LT wo/w con CLINICAL INDICATION: Left leg pain, prior below the knee amputation with pain at the amputation site and abnormal x-ray ITS.REASON: PAIN OF LEFT LEG, ABNORMAL X-RAY OF BONE ORDERING PHYSICIAN: Bryon Chance MD PATIENT AGE: 68 years Comparison: 10/20/2018 TECHNIQUE: Multiplanar multiecho sequences performed without and with contrast FINDINGS: There has been a prior below the knee amputation. There was some cortical thinning at the stump of the proximal fibula on the radiograph.. This area has an unremarkable appearance with no abnormal bone marrow edema or enhancement. There is some mild subcutaneous edema along the soft tissues at the stump of the amputation site. Along the stump of the tibia medially, there is a small area of decreased T1 and increased T2 signal which measures approximately 7 mm. Posteriorly this has a somewhat cystic appearance. Posteriorly however, this does show some contrast enhancement. This is well-circumscribed. There is some adjacent soft tissue edema medial to this region. This could be due to an area of osteomyelitis with associated cellulitis. IMPRESSION: 1. Status post [id number] amputation. The stump of the fibula has an unremarkable appearance. 2. There is a small area of increased T2 signal with some mild enhancement involving the medial aspect of the stump of the tibia with some associated decreased T1 and increased T2 signal of the adjacent soft tissues. This could represent a small area of osteomyelitis with cellulitis. 3 phase bone scan may confirm if clinically desired 3. Mild amount of subcutaneous edema at the stump of the amputation site
== END ==
PROVIDERS: PCP Family Medicine; Visit Provider Family Medicine
DX: M79.605 Pain in left leg (principal); R93.7 Abnormal findings on diagnostic imaging of other parts of musculoskeletal system; Z89.512 Acquired absence of left leg below knee
CPT/HCPCS: 73720; A9576

== ENCOUNTER → 2018-12-22 08:40 | Outpatient (CLI) | payer MEDICARE, SELFPAY ==
[2018-12-22 09:01] LABS: Basophils % 0.3 % (0.1-2.0); Eosinophils # 0.1 K/mm3 (0.0-0.4); Eosinophils % 1.9 % (0.1-12.0); Hematocrit 48.5 % (42.0-52.0); Hemoglobin 15.7 g/dL (14.1-18.0); Lymphocytes # 1.1 K/mm3 (0.7-4.5); Lymphocytes % 23.4 % (10-50); Mean Corpuscular HGB Conc 32.4 g/dL (31.8-35.4); Mean Corpuscular Hemoglobin 30.2 pg (27.0-31.2); Mean Corpuscular Volume 93.2 fl (80-94); Mean Platelet Volume 8.1 fl (7.4-10.4); Monocytes # 0.3 K/mm3 (0.1-1.0); Monocytes % 6.1 % (1.7-9.3); Neutrophils # 3.2 K/mm3 (1.8-7.8); Neutrophils % 68.2 % (37.0-80.0); Platelet Count 160 K/mm3 (142-424); Red Cell Distribution Width 12.5 % (11.5-17.5); White Blood Count 4.7 K/mm3 (4.8-10.8)
[2018-12-22 10:30] LABS: C-Reactive Protein < 0.2 mg/L (0.0-0.9)
[2018-12-22 10:32] LABS: Erythrocyte Sedimentation Rate 6 mm/hr (0-20)
== END ==
PROVIDERS: Visit Provider Family Medicine
DX: M79.605 Pain in left leg (principal)
CPT/HCPCS: 36415; 85025; 85651; 86140

== ENCOUNTER → 2020-06-25 11:52 | Outpatient (CLI) | payer MEDICARE, SELFPAY ==
[2020-06-25 13:33] LABS: Basophils % 0.4 % (0.1-2.0); Eosinophils % 0.3 % (0.1-12.0); Hematocrit 49.9 % (42.0-52.0); Hemoglobin 16.5 g/dL (14.1-18.0); Lymphocytes # 0.8 K/mm3 (0.7-4.5); Lymphocytes % 8.3 % (10-50); Mean Corpuscular Hemoglobin 30.7 pg (27.0-31.2); Mean Corpuscular Volume 92.8 fl (80-94); Mean Platelet Volume 8.7 fl (7.4-10.4); Monocytes # 0.6 K/mm3 (0.1-1.0); Monocytes % 6.3 % (1.7-9.3); Neutrophils # 8.2 K/mm3 (1.8-7.8); Neutrophils % 84.7 % (37.0-80.0); Platelet Count 137 K/mm3 (142-424); Red Blood Count 5.37 M/mm3 (4.60-6.20); Red Cell Distribution Width 13.1 % (11.5-17.5); White Blood Count 9.6 K/mm3 (4.8-10.8)
== END ==
PROVIDERS: PCP Family Medicine; Visit Provider Nurse Practitioner Family
DX: U07.1 COVID-19 (principal)
CPT/HCPCS: 36415; 85025; U0003

== ENCOUNTER 2020-06-27 15:05 | Inpatient (IN) | payer MEDICARE, SELFPAY ==
[2020-06-27] VITALS (10 sets, daily range): BP systolic 105–116; BP diastolic 63–71; PULSE 70–89; RESP 16–20; TEMP 36.6–37.2; O2SAT 90–95; BMI 28.2; BMI 28.8; BMI 28.0
--- NOTE | 2020-06-27 15:19 | ECG_ITS ---
APPROVED REPORT Exam: Resting ECG HR:91 bpm ECG Measurements Heart Rate 91 AXES MA 166 P 8 QRSd 96 QRS -48 QT 362 T 34 QTc 445 Conclusion Normal sinus rhythm Left anterior fascicular block Minimal voltage criteria for LVH, may be normal variant Abnormal ECG Electronically signed by : Carlos Sims, 06/28/2020 19:46:14
--- NOTE | 2020-06-27 15:19 | XR_ITS ---
PROCEDURE: XR CHEST PORTABLE CLINICAL HISTORY: short of breath COMPARISON: DX CXR2V XR chest 2V from 05/27/2018 CR CXR2V XR chest 2V from 06/04/2018 CR CXR2V XR chest 2V from 06/21/2018 FINDINGS: The cardiomediastinal silhouette and pulmonary vascularity are within normal limits. Consolidation is present in the right upper right lower and left upper lobe consistent with bilateral pneumonia. No acute bony abnormalities. IMPRESSION: Bilateral pneumonia Dictated by: Michele Sheth MD 06/27/2020 17:20 Michele Sheth MD in [place] 06/27/2020 17:20
--- NOTE | 2020-06-27 15:20 | HMH.EDGENADL ---
ED Disposition Clinical Impression: Pneumonia due to COVID-19 virus Respiratory failure with hypoxia Qualifiers: Chronicity: acute Qualified Code(s): J96.01 - Acute respiratory failure with hypoxia Disposition: Admitted As Inpatient Condition on Discharge: Fair Referrals: Bryon Chance MD [Primary Care Provider] - Time of Disposition: 16:35 - Critical Care Critical Care Time: No Attestation: On 06/27/20, the high probability of a clinically significant, sudden or life threatening deterioration of the following system(s) required my full and direct attention, intervention and personal management. The time I documented below is in addition to time spent performing reported procedures but includes the following listed in this critical care notation. Medical Decision Making - Medical Records Medical records reviewed: Yes: I reviewed the patient's medical records. - Syed Inquiry Pt receiving controlled substance: No Vital Signs: 06/27/20 15:06 06/27/20 16:22 06/27/20 16:30 Temperature 98.4 F Temperature Source Oral Pulse Rate [Right Radial] 75 86 89 Respiratory Rate 20 Blood Pressure [Right Arm] 115/63 106/63 L 110/69 Blood Pressure Mean [Right Arm] 80 77 82 Blood Pressure Source [Right Arm] Automatic Cuff Automatic Cuff Automatic Cuff Blood Pressure Position [Right Arm] Sitting Sitting Sitting 02 Sat by Pulse Oximetry 90 L 95 95 Oxygen Delivery Method Room Air Nasal Cannula Nasal Cannula Oxygen Flow Rate (LPM) 2 2 06/27/20 17:00 Temperature Temperature Source Pulse Rate [Right Radial] 88 Respiratory Rate Blood Pressure [Right Arm] 105/69 L Blood Pressure Mean [Right Arm] 81 Blood Pressure Source [Right Arm] Automatic Cuff Blood Pressure Position [Right Arm] Sitting 02 Sat by Pulse Oximetry 93 L Oxygen Delivery Method Room Air Oxygen Flow Rate (LPM) - Lab Data Lab Results 06/27/20 15:15: WBC 10.2, RBC 5.26, Hgb 16.6, Hct 47.3, MCV 89.9, MCH 31.5 H, MCHC 35.0, RDW 12.5, Plt Count 139 L, MPV 8.3, Neut % (Auto) 87.7 H, Lymph % (Auto) 6.7 L, [place] % (Auto) 5.2, Eos % (Auto) 0.1, Baso % (Auto) 0.3, Neut # (Auto) 8.9 H, Lymph # (Auto) 0.7, Trinity # (Auto) 0.5, Eos # (Auto) 0.0, Baso # (Auto) 0.0, Total Counted 100, Neutrophils % (Manual) 82 H, Lymphocytes % (Manual) 12, Monocytes % (Manual) 6, Platelet Estimate Slight decrease, RBC Morphology Normal 06/27/20 15:15: D-Dimer 0.84 06/27/20 15:15: Sodium 134 L, Potassium 3.8, Chloride 96 L, Carbon Dioxide 26, Anion Gap 15.8 H, BUN 23 H, Creatinine 1.20, Estimated Creat Clear 85, Estimated GFR 60, Est GFR ( Amer) 73, Glucose 151 H, Calcium 10.0, Ferritin 721 H, Total Bilirubin 1.7 H, AST 30, ALT 25, Alkaline Phosphatase 74, Troponin I < 0.01, Total Protein 8.6 H, Albumin 4.7, Globulin 3.9 H, Albumin/Globulin Ratio 1.2, Procalcitonin 0.399 06/27/20 15:15: Lactate 1.4 06/27/20 15:15: SARS-CoV-2 IgG Ab (Rapid) Negative, SARS-CoV-2 IgM Ab (Rapid) Negative Result diagrams: 06/27/20 15:15 06/27/20 15:15 Orders (Tests/Meds): ED MEDICATIONS Generic Name Dose Route Start Last Admin Trade Name Freq PRN Reason Stop Dose Admin Azithromycin 500 mg/ Sodium 250 mls @ 250 mls/hr 06/27/20 15:30 06/27/20 15:39 Chloride IV 07/11/20 15:29 250 mls/hr Q24H DESIRE Administration Protocol Discontinued Medications Generic Name Dose Route Start Last Admin Trade Name Freq PRN Reason Stop Dose Admin Dexamethasone Sodium Phosphate 8 mg 06/27/20 15:29 06/27/20 15:38 Dexamethasone 4mg/Ml 1ml Vial IV 06/27/20 15:30 8 mg ONCE ONE Administration Sodium Chloride 1,000 mls @ 999 mls/hr 06/27/20 15:30 06/27/20 15:39 Sod Chlor 0.9% 1000ml Bag IV 06/27/20 16:30 999 mls/hr .Q1H1M DESIRE Administration ORDERS Category Date Time Status Consult to Pulmonology [CONS] Stat Cons 06/27/20 16:00 Ordered CXR --portable [XR chest portable] Stat Exams 06/27/20 15:19 Taken MRSA DNA PCR Stat Lab 06/27/20 17:16 Ordered Troponin I Q
[2020-06-27 15:40] LABS: Basophils % 0.3 % (0.1-2.0); Eosinophils % 0.1 % (0.1-12.0); Hematocrit 47.3 % (42.0-52.0); Hemoglobin 16.6 g/dL (14.1-18.0); Lymphocytes # 0.7 K/mm3 (0.7-4.5); Lymphocytes % 6.7 % (10-50); Mean Corpuscular Hemoglobin 31.5 pg (27.0-31.2); Mean Corpuscular Volume 89.9 fl (80-94); Mean Platelet Volume 8.3 fl (7.4-10.4); Monocytes # 0.5 K/mm3 (0.1-1.0); Monocytes % 5.2 % (1.7-9.3); Neutrophils # 8.9 K/mm3 (1.8-7.8); Neutrophils % 87.7 % (37.0-80.0); Platelet Count 139 K/mm3 (142-424); Red Blood Count 5.26 M/mm3 (4.60-6.20); Red Cell Distribution Width 12.5 % (11.5-17.5); White Blood Count 10.2 K/mm3 (4.8-10.8)
[2020-06-27 15:41] LABS: Chloride 96 mmol/L (98-107); Sodium 134 mmol/L (136-145)
[2020-06-27 15:42] LABS: Potassium 3.8 mmoL/L (3.5-5.1)
[2020-06-27 15:44] LABS: Alanine Aminotransferase 25 U/L (12-78); Albumin Level 4.7 g/dl (3.5-5.0); Albumin/Globulin Ratio 1.2 (1.1-1.8); Alkaline Phosphatase 74 U/L (38-126); Anion Gap 15.8 mEq/L (5-15); Aspartate Amino Transferase 30 U/L (17-59); Bilirubin,Total 1.7 mg/dl (0.2-1.3); Blood Urea Nitrogen 23 mg/dl (9-20); Carbon Dioxide 26 mmol/L (22.0-30.0); Creatinine Clearance Estimated 85 mL/min (50-200); Estimated Glomerular Filt Rate 60 ml/min (>60); GFR (African American) 73 ML/MIN (>60); Globulin 3.9 g/dL (1.3-3.2); Glucose 151 mg/dl (74-100); MANUAL DIFFERENTIAL MANUAL DIFFERENTIAL (MANUAL DIFF); Total Protein,Serum 8.6 g/dl (6.3-8.2)
--- NOTE | 2020-06-27 15:46 | PC.NURSE ---
rad at BS for portable xray
[2020-06-27 15:49] LABS: D-Dimer 0.84 ug/mL (0.15-8.0); Lactic Acid 1.4 mmol/L (0.7-2.1)
[2020-06-27 15:58] LABS: Troponin I < 0.01 ng/ml (0.00-0.034)
[2020-06-27 15:59] LABS: Lymphocytes % 12 % (10-50); Monocytes % 6 % (2-9); Neutrophils % 82 % (42-76); Platelet Estimate Slight Decrease; RBC Morphology Normal; Total Cells Counted 100
[2020-06-27 16:17] LABS: Procalcitonin 0.399 ng/mL (0.0-2.0)
--- NOTE | 2020-06-27 16:19 | PC.NURSE ---
Notified Dr. Lenz office of consult
[2020-06-27 16:21] LABS: Ferritin 721 ng/ml (17.9-464)
[2020-06-27 16:27] LABS: Coronavirus 19 IgG Antibody Negative (Negative); Coronavirus 19 IgM Antibody Negative (Negative)
--- NOTE | 2020-06-27 16:34 | PC.NURSE ---
Lizette goncalves at this time.
--- NOTE | 2020-06-27 17:01 | PC.NURSE ---
Dr. Lenz at BS
--- NOTE | 2020-06-27 17:01 | PC.NURSE ---
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 Chance
--- NOTE | 2020-06-27 17:19 | HMH.PULMCON ---
*Admission Date: 06/27/20 *Reason for consult:: Acute hypoxic respiratory failure, COVID-19 pneumonia *History of present illness: Mr. Lehman is a 69-year-old male with a history of CAD status post stenting in 2018 currently on Plavix, hypertension, on metoprolol and losartan, diabetes on Metformin and pioglitazone, recent history of COVID-19 pneumonia on June 252020 presented to the emergency room complaining of worsening shortness of breath and pulmonary was called for further management and further questioning patient started having symptoms earlier this week with worsening cough and shortness of breath and he got tested positive and then he was really advised to come to the ER if symptoms are worsening and patient had worsening cough with fevers and productive phlegm. Patient admits decreased oral intake but adequately being hydrated for the last 3 to 4 days. Patient also admits an episode of dizziness before coming to the ED and patient was found to be orthostatic on presentation and was given fluid bolus. Never smoker. worked in the [employer] department previously. Denies any prior respiratory complaints never used inhalers before [facility] History Medical History: Reports:: Coronary Artery Disease, Diabetes Mellitus Type 2, Gastroesophageal Reflux Disease(GERD), Hyperlipidemia *Have you ever received a pneumonia vaccine?: No *Have you received a flu vaccine this season?: No Other Medical History: Reports: Other Other Surgeries: Yes: Cardiac Catheterization, Coronary Stent, Other Amputation: Yes (left BKA) Fractures: Yes (left tib/fib) - *Social History Last grade of school completed: Some college Smoking Status: Never smoker Alcohol Intake: current Alcohol Intake Frequency:: holidays/special occasions only Substance Use Type: denies use *Occupational Status:: retired *Travel in the last 8 weeks: None Family Hx:: Coronary Artery Disease, Diabetes, Hyperlipidemia, Hypertension ROS - Review of Systems Review of systems:: pertinent systems reviewed and negative unless documented below - Cons Reports body ache(s), Reports chills - Card Reports shortness of breath, Reports shortness of breath with activity - Resp Respiratory: Reports chest congestion, Reports cough, Reports dyspnea on exertion, Reports excessive phlegm production - GI Gastrointestingal: Reports: system reviewed and no additional complaints, except as docu - [place] Musculoskeletal: Reports system reviewed and no additional complaints, except as docu - Psych Reports abnormal sleep pattern Meds Home Medications Medication Instructions Recorded Confirmed Type metformin 1,000 mg tablet 1,000 mg PO BID 04/08/18 06/28/20 History multivitamin 1 tab PO DAILY 04/08/18 06/28/20 History pantoprazole 40 mg tablet,delayed 40 mg PO DAILY 04/08/18 06/28/20 History release tamsulosin 0.4 mg capsule 0.4 mg PO DAILY 04/08/18 06/28/20 History dapagliflozin 10 mg tablet 10 mg PO DAILY 30 Days #30 tab 01/14/19 06/28/20 History Clopidogrel Bisulfate [Plavix] 75 mg PO DAILY 06/27/20 06/28/20 History Losartan Potassium [Cozaar 50mg 50 mg PO DAILY 06/27/20 06/28/20 History Tablets] Metoprolol Succinate [Metoprolol 25 mg PO DAILY 06/27/20 06/27/20 History Succinate 25mg Tablet*] Aspirin [Aspirin 81mg chewable 81 mg PO DAILY 06/28/20 06/28/20 History tab] Atorvastatin Calcium [Lipitor 40mg 40 mg PO DAILY 06/28/20 06/28/20 History Tab] Azithromycin 250 mg PO DAILY 06/28/20 06/28/20 History Ketorolac Tromethamine 1 drp EYE-RIGHT BID 06/28/20 06/28/20 History Prednisolone Acetate/Pf 1 drop OP BID 06/28/20 06/28/20 History [Prednisolone Acet 1% Eye Drop] Allergies Allergy/AdvReac Type Severity Reaction Status Date / Time ceftriaxone [From Rocephin] Allergy Mild Verified 05/24/20 09:28 Exam Radiology reports for Last 24 Hours: X-ray on admission reviewed, patient had bilateral airspace disease in the left upper lobe and right lower lobe.
--- NOTE | 2020-06-27 17:46 | PC.NURSE ---
updated pt on POC, pt states no needs at this time covid unit nurse receiving pt is working on a current admission, states she will let us know just as soon as we can bring pt up for admission
[2020-06-27 18:45] LABS: Troponin I < 0.01 ng/ml (0.00-0.034)
--- NOTE | 2020-06-27 20:23 | HMH.HP ---
*Chief complaint: SOA, COVID 19 pneumonia *History of present illness: This 69-year-old white male was admitted with COVID-19 pneumonia with worsening symptoms of shortness of air and cough. He had a telehealth visit on 06/25/2020 with MARY Henderson. He had been exposed week prior to that to someone who was positive for Covid subsequently. At the point of that evaluation he had had a sore throat for 2 days and a cough for 2 days. His fever had gone to 101. He had some bilateral ear pain and rhinorrhea. He complained of frontal headache. He had chest congestion with occasional tightness in the chest. He also complained of body aches. He had had a decrease in appetite. He presented to the emergency room on this day of admission with worsening shortness of air. He also had experienced some dizziness and was found to be slightly dehydrated with orthostatic changes in blood pressure. He received IV fluids and dexamethasone in the emergency room and was admitted for further evaluation and treatment. The patient is diabetic and has been fairly well controlled lately. He has a left BK amputation from 2009 from an injury to the leg with subsequent infection. The patient has not been a smoker. [facility] History Medical History: Reports:: Coronary Artery Disease (Stent placement March 2018.), Diabetes Mellitus Type 2, Gastroesophageal Reflux Disease(GERD), Hyperlipidemia, Hypertension Denies:: Cancer, Diabetes Mellitus Type 1, MRSA, Pulmonary Embolism *Have you ever received a pneumonia vaccine?: No *Have you received a flu vaccine this season?: Yes Other Medical History: Reports: Other Laterality Cases: Bilateral: Cataract (2018) Other Surgeries: Yes: Cardiac Catheterization, Coronary Stent, Other (Lumbar disc with fusion 2006) Amputation: Yes (left BKA) Fractures: Yes (left tib/fib) - *Social History Last grade of school completed: High school graduate Smoking Status: Never smoker Alcohol Intake: never Alcohol Intake Frequency:: holidays/special occasions only Substance Use Type: denies use *Occupational Status:: retired ([employer]) Housing: house Household Members: spouse *Travel in the last 8 weeks: None Family Hx:: Coronary Artery Disease, Other (1 son and 1 daughter, healthy) Review of Systems - Constitutional Reports body ache(s), Reports fatigue, Reports fever(s), Reports weakness, Denies chills - Eyes Reports change in vision (History of cataracts and eye injections.) - ENT Reports dizziness - *Cardiovascular Reports shortness of breath, Reports shortness of breath with activity, Denies chest pain, Denies rapid, pounding, or irregular heartbeat - *Respiratory Reports chest congestion, Reports cough, Reports shortness of breath, Reports shortness of breath with activity, Denies coughing up blood - *Gastrointestinal Denies abdominal pain - *Musculoskeletal Reports abnormal walking (BK amputation, left) - Integumentary/Breasts Denies bleeding lesions, Denies change in skin color - *Neurologic Reports headache(s), Reports weakness, Denies numbness Meds Home Medications Medication Instructions Recorded Confirmed Type metformin 1,000 mg tablet 1,000 mg PO BID 04/08/18 06/27/20 History multivitamin 1 tab PO DAILY 04/08/18 05/24/20 History pantoprazole 40 mg tablet,delayed 40 mg PO DAILY 04/08/18 05/24/20 History release tamsulosin 0.4 mg capsule 0.4 mg PO DAILY 04/08/18 05/24/20 History Aspirin [Aspirin 81mg chewable 81 mg PO DAILY tab.chew 04/10/18 05/24/20 Rx tab] dapagliflozin 10 mg tablet 10 mg PO DAILY 30 Days #30 tab 01/14/19 05/24/20 History atorvastatin 40 mg tablet 40 mg PO DAILY #90 tab 07/22/19 05/24/20 Rx gabapentin 300 mg capsule 300 mg PO DAILY 07/22/19 05/24/20 History Clopidogrel Bisulfate [Plavix] 75 mg PO DAILY 06/27/20 06/27/20 History Losartan Potassium [Cozaar 50mg 50 mg PO DAILY 06/27/20 06/27/20 History Tablets] Metoprolol Succinate [Metoprolol 25 mg PO DAILY 06/27
[2020-06-27 22:29] LABS: D-Dimer 0.77 ug/mL (0.15-8.0)
[2020-06-28] VITALS (8 sets, daily range): BP systolic 100–144; BP diastolic 63–79; PULSE 70–100; RESP 16–20; TEMP 35.9–39.1; O2SAT 89–93; BMI 26.6
--- NOTE | 2020-06-28 00:44 | PC.NURSE ---
Pt O2 89% on 2L O2 NC. O2 titrated to 2.5 L. Pt O2 sat currently 90%.
--- NOTE | 2020-06-28 05:05 | PC.NURSE ---
No acute changes. Pt has slept at intervals this shift. Lungs are diminished t/o. O2 was titrated from 2L O2 NC to 3L O2 NC this shift. Pt's current sat is 91%. Pt has used used urinal this shift. VS have been stable. Medications administered per aug. Will continue to monitor.
--- NOTE | 2020-06-28 07:58 | P.CONPHA_ITS ---
[facility] Pharmacy VTE Monitoring - Patient Demographics Admission date: 06/27/20 Report Date: 06/28/20 Time: 07:58 Allergies/Adverse Reactions: Patient Allergies ceftriaxone [From Rocephin] Allergy (Mild, Verified 05/24/20 09:28) Height: 1.88 m Weight: 93.979 kg Patient Problems: Current Active Problems Respiratory failure with hypoxia (Acute) Pneumonia due to COVID-19 virus (Acute) CAD (coronary artery disease), [place] coronary artery (Chronic) Status post insertion of drug-eluting stent into left anterior descending (LAD) artery (Acute) Dyspnea (Acute) Abnormal ECG (Acute) DM2 (diabetes mellitus, type 2) (Chronic) - VTE Risk Labs: VTE Related Lab Results Hgb 16.6 g/dL (14.1-18.0) 06/27/20 15:15 Hct 47.3 % (42.0-52.0) 06/27/20 15:15 Plt Count 139 K/mm3 (142-424) L 06/27/20 15:15 BUN 23 mg/dl (9-20) H 06/27/20 15:15 Creatinine 1.20 mg/dl (0.66-1.25) 06/27/20 15:15 Estimated Creat Clear 85 mL/min (50-200) 06/27/20 15:15 Was VTE Risk Assessment Performed: Yes VTE Score: 4 VTE Risk Level: Low Risk - Prophylaxis VTE Prophylaxis Ordered?: Yes Types of VTE Prophylaxis: TEDS Knee High, Pharmacological Location of Applied Device: Bilateral Lower Extremeties Pharmacologic Type: Enoxaparin
[2020-06-28 08:22] LABS: Basophils % 0.1 % (0.1-2.0); Eosinophils % 0.1 % (0.1-12.0); Hematocrit 42.2 % (42.0-52.0); Lymphocytes # 0.5 K/mm3 (0.7-4.5); Lymphocytes % 5.8 % (10-50); Mean Corpuscular HGB Conc 32.8 g/dL (31.8-35.4); Mean Corpuscular Hemoglobin 30.7 pg (27.0-31.2); Mean Corpuscular Volume 93.4 fl (80-94); Mean Platelet Volume 8.3 fl (7.4-10.4); Monocytes # 0.6 K/mm3 (0.1-1.0); Monocytes % 7.4 % (1.7-9.3); Neutrophils # 7.5 K/mm3 (1.8-7.8); Neutrophils % 86.6 % (37.0-80.0); Platelet Count 126 K/mm3 (142-424); Red Blood Count 4.52 M/mm3 (4.60-6.20); Red Cell Distribution Width 12.2 % (11.5-17.5); White Blood Count 8.6 K/mm3 (4.8-10.8)
[2020-06-28 08:25] LABS: MANUAL DIFFERENTIAL MANUAL DIFFERENTIAL (MANUAL DIFF)
--- NOTE | 2020-06-28 08:26 | HMH.PHAINT ---
HOME MEDICATION RECONCILIATION COMPLETED USING LIST FROM HOME PHARMACY AND CARDIOLOGY OFFICE
[2020-06-28 08:38] LABS: Anion Gap 16.8 mEq/L (5-15); Blood Urea Nitrogen 25 mg/dl (9-20); Calcium 9.1 mg/dl (8.4-10.2); Carbon Dioxide 23 mmol/L (22.0-30.0); Chloride 100 mmol/L (98-107); Creatinine Clearance Estimated 94 mL/min (50-200); Estimated Glomerular Filt Rate 84 ml/min (>60); GFR (African American) 102 ML/MIN (>60); Glucose 130 mg/dl (74-100); Potassium 3.8 mmoL/L (3.5-5.1); Sodium 136 mmol/L (136-145)
[2020-06-28 09:54] LABS: Hemoglobin 13.9 g/dL (14.1-18.0); Lymphocytes % 4 % (10-50); Monocytes % 7 % (2-9); Neutrophils % 89 % (42-76); Platelet Estimate Slight Decrease; RBC Morphology Normal; Total Cells Counted 100
--- NOTE | 2020-06-28 11:53 | CT_ITS ---
PROCEDURE: CT ANGIO CHEST CLINCIAL INDICATION: PE Shortness of air, Covid19 pneumonia COMPARISON: No exams were available for comparison TECHNIQUE: IV Contrast: 70ML Isovue 370 Axial images obtained with sagittal and coronal reformats. All CT scans at the facility use one or more dose reduction, viz: automated exposure control, ma/kV adjustment per patient size (including targeted exams where dose is matched to indication, i.e. head), or iterative reconstruction technique. FINDINGS: No evidence of aortic aneurysm or dissection. No evidence of pulmonary embolus. The peripheral pulmonary arteries are not well opacified. There are mildly prominent mediastinal and hilar lymph nodes. Coronary artery calcifications are present. There is multi segmental patchy ground-glass infiltrates in both lungs consistent with atypical/Covid19 pneumonia. There is trace right-sided effusion. Upper abdominal images show mild splenomegaly at 15 cm. IMPRESSION: 1. No evidence of pulmonary embolus. 2. Bilateral multi segmental ground-glass infiltrates consistent with atypical/Covid19 pneumonia with trace right effusion 3. Splenomegaly 4. Mild mediastinal and hilar adenopathy Dictated by: Michele Sheth MD 06/28/2020 14:25 Michele Sheth MD in [place] 06/28/2020 14:25
--- NOTE | 2020-06-28 12:53 | HMH.PULMPN ---
Internal Medicine - PN: Subj *Date: 06/28/20 *Time: 12:53 Interval history: Patient respiratory status slightly worsened from yesterday. Appeared to be more respiratory distress this morning. Exam - Constitutional Comment:: Mild respiratory distress - HENMT Exam HENMT: normocephalic, atraumatic - Eye Exam Eyes:: eyelids normal, normal conjunctiva - Neck Exam Neck:: thyroid normal, no lymphadenopathy - Respiratory Exam Respiratory:: able to speak in complete sentences Comments: Patient appear to be in mild respiratory distress. Bilateral coarse breath sounds. No audible wheeze. Patient saturating 88 to 91% on 3 L nasal cannula. - Cardiovascular Exam Cardiac:: S1, S2 - GI Exam GI:: soft, no hepatosplenomegaly - Skin Exam Skin: warm - Neurological Exam Neurological: alert, normal cognition - Extremities Exam Extremities: no cyanosis, no clubbing, edema - Psychiatric Exam Psychiatric: normal affect Assessment and Plan - Assessment and plan all Dx Assessment and Plan for all problems:: #COVID-19 pneumonia: #Acute hypoxic respiratory failure: 69-year-old no prior respiratory complaints never smoker with recent diagnosis of COVID-19 present with worsening respiratory failure cough and productive phlegm. Chest x-ray showed bilateral pulmonary infiltrates. Patient respiratory status appears to be slightly worsened, appear to be respiratory distress compared to yesterday. On 3 L NC this morning saturating 88 to 91% Renal function improved since yesterday, creatinine 0.90 today. Blood cultures pending. Plan: - F/U nasal MRSA culture - Sputum cultures - CT PE protocol - Consider discontinuing maintenance fluids, strict I&O's with net negative fluid balance - Continue ceftriaxone and Azithromycin for community acquired pneumonia: - Continue dexamethasone and remdesivir for COVID-19 pneumonia -DuoNebs every 6 hours as needed for shortness of breath and wheezing -Nasal cannula oxygen supplementation with O2 sat goal of 92% and above -Continue PPI and DVT prophylaxis #Thank you for involving pulmonary inpatient care. We will continue to follow.
--- NOTE | 2020-06-28 14:18 | P.PN_ITS ---
Internal Medicine - PN: Subj *Date: 06/28/20 *Time: 14:18 Interval history: Reportedly more dyspneic and short of breath this morning than yesterday. See the note from pulmonary assessment. CTA ordered. He is saline locked. Exam Vital signs and Labs for Last 24 Hours: Temp Pulse Resp BP Pulse Ox 102.3 F H 100 H 20 140/74 91 L 06/28/20 12:00 06/28/20 12:00 06/28/20 12:00 06/28/20 12:00 06/28/20 12:00 Laboratory Results - last 24 hr 06/27/20 15:15: WBC 10.2, RBC 5.26, Hgb 16.6, Hct 47.3, MCV 89.9, MCH 31.5 H, MCHC 35.0, RDW 12.5, Plt Count 139 L, MPV 8.3, Neut % (Auto) 87.7 H, Lymph % (Auto) 6.7 L, [place] % (Auto) 5.2, Eos % (Auto) 0.1, Baso % (Auto) 0.3, Neut # (Auto) 8.9 H, Lymph # (Auto) 0.7, [place] # (Auto) 0.5, Eos # (Auto) 0.0, Baso # (Auto) 0.0, Total Counted 100, Neutrophils % (Manual) 82 H, Lymphocytes % (Manual) 12, Monocytes % (Manual) 6, Platelet Estimate Slight decrease, RBC Morphology Normal 06/27/20 15:15: D-Dimer 0.84 06/27/20 15:15: Sodium 134 L, Potassium 3.8, Chloride 96 L, Carbon Dioxide 26, Anion Gap 15.8 H, BUN 23 H, Creatinine 1.20, Estimated Creat Clear 85, Estimated GFR 60, Est GFR ( Amer) 73, Glucose 151 H, Calcium 10.0, Ferritin 721 H, Total Bilirubin 1.7 H, AST 30, ALT 25, Alkaline Phosphatase 74, Troponin I < 0.01, Total Protein 8.6 H, Albumin 4.7, Globulin 3.9 H, Albumin/Globulin Ratio 1.2, Procalcitonin 0.399 06/27/20 15:15: Lactate 1.4 06/27/20 15:15: SARS-CoV-2 IgG Ab (Rapid) Negative, SARS-CoV-2 IgM Ab (Rapid) Negative 06/27/20 18:10: Troponin I < 0.01 06/27/20 21:35: D-Dimer 0.77 06/28/20 06:25: WBC 8.6, RBC 4.52 L, Hgb 13.9 L D, Hct 42.2, MCV 93.4, MCH 30.7, MCHC 32.8, RDW 12.2, Plt Count 126 L, MPV 8.3, Neut % (Auto) 86.6 H, Lymph % (Auto) 5.8 L, [place] % (Auto) 7.4, Eos % (Auto) 0.1, Baso % (Auto) 0.1, Neut # (Auto) 7.5, Lymph # (Auto) 0.5 L, [place] # (Auto) 0.6, Eos # (Auto) 0.0, Baso # (Auto) 0.0, Total Counted 100, Neutrophils % (Manual) 89 H, Lymphocytes % (Manual) 4 L, Monocytes % (Manual) 7, Platelet Estimate Slight decrease, RBC Morphology Normal 06/28/20 06:25: Sodium 136, Potassium 3.8, Chloride 100, Carbon Dioxide 23, Anion Gap 16.8 H, BUN 25 H, Creatinine 0.90 D, Estimated Creat Clear 94, Es timated GFR 84, Est GFR ( Amer) 102 D, Glucose 130 H, Calcium 9.1 I & O for Last 24 hours: Intake & Output 06/26/20 06/27/20 06/28/20 06/29/20 11:59 11:59 11:59 11:59 Intake Total 1490 / 1490 Output Total 1650 / 1650 Balance -160 / -160 Weight 207 lb 3 oz - Constitutional no acute distress - *Routine HEENT Exam Head: Present: normocephalic Eye: Present: PERRL - *Routine Respiratory Exam Present: decreased breath sounds, rales - *Routine Cardiovascular Exam Present: RRR - *Routine Extremities Exam Present: edema (1+ of the right leg) - *Routine Neurological Exam Present: alert, oriented X3 Assessment and Plan - Assessment and plan all Dx Assessment and Plan for all problems:: Await CTA. Continue present regimen for pneumonia and COVID-19.
--- NOTE | 2020-06-28 18:17 | PC.NURSE ---
cup given to pt for SPT. Pt agrees to do so.
--- NOTE | 2020-06-28 20:00 | PC.NURSE ---
Pt alert and oriented x 4. Lung sounds diminished. NAD, did c/o of mckenzie and given prn tylenol. Also had fever this shift of 102.3, last temp was 98.4. CB in reach. Meds given per aug. S1,S2, diminished lung sounds, continues on 3 L. BS x 4. VSS.
[2020-06-29] VITALS (10 sets, daily range): BP systolic 113–149; BP diastolic 68–79; PULSE 63–99; RESP 18–22; TEMP 36.4–38.1; O2SAT 88–93; BMI 26.6
[2020-06-29 07:53] LABS: POC Glucose,Bedside 162 (70-110)
[2020-06-29 07:53] LABS: POC Glucose,Bedside 148 (70-110)
[2020-06-29 07:54] LABS: POC Glucose,Bedside 164 (70-110)
[2020-06-29 07:54] LABS: POC Glucose,Bedside 207 (70-110)
[2020-06-29 07:54] LABS: POC Glucose,Bedside 108 (70-110)
[2020-06-29 07:54] LABS: POC Glucose,Bedside 142 (70-110)
--- NOTE | 2020-06-29 09:11 | PC.NURSE ---
Pt is A&Ox4 and has ambulated to BR 1x and tolerated well. SaO2 89-92% this shift on 3.5LPM NC. Pt denies any SOB at rest. Lungs diminished on auscultation. Lovenox VTE. T-max 100.5 that decreased to 99.1 post tylenol PO.
--- NOTE | 2020-06-29 10:27 | HMH.ACPN2 ---
Internal Medicine - PN: Subj *Date: 06/29/20 *Time: 10:27 Interval history: Still with SOA, increased with any exertion. Cough. Some LG temperature. Exam Vital signs and Labs for Last 24 Hours: Temp Pulse Resp BP Pulse Ox 99.1 F 89 18 123/71 92 L 06/29/20 06:00 06/29/20 06:00 06/29/20 04:00 06/29/20 04:00 06/29/20 06:00 Laboratory Results - last 24 hr 06/27/20 21:21: POC Glucose 162 H 06/28/20 02:53: POC Glucose 148 H 06/28/20 09:26: POC Glucose 142 H 06/28/20 14:51: POC Glucose 164 H 06/28/20 21:26: POC Glucose 207 H 06/29/20 05:29: POC Glucose 108 I & O for Last 24 hours: Intake & Output 06/26/20 06/27/20 06/28/20 06/29/20 11:59 11:59 11:59 11:59 Intake Total 1490 / 1490 1660 / 1660 Output Total 1650 / 1650 1476 / 1476 Balance -160 / -160 184 / 184 Weight 207 lb 3 oz Microbiology Reports for the Last 24 Hours: Microbiology 06/28/20 21:52 Sputum - Expectorated Sputum Gram Stain - Final - Constitutional no acute distress (cough) - *Routine HEENT Exam Head: Present: normocephalic Eye: Present: PERRL ENT: Present: mucous membranes moist - *Routine Respiratory Exam Present: rales, rhonchi - *Routine Cardiovascular Exam Present: RRR - *Routine Abdominal Exam Present: soft. Absent: tenderness Assessment and Plan - Assessment and plan all Dx Assessment and Plan for all problems:: Continue present care.
[2020-06-29 10:42] LABS: POC Glucose,Bedside 194 (70-110)
--- NOTE | 2020-06-29 14:47 | HMH.PULMPN ---
Internal Medicine - PN: Subj *Date: 06/29/20 *Time: 14:47 Interval history: No acute respiratory events overnight. Patient respiratory status remained stable and appears more comfortable today Exam - Constitutional Constitutional:: no acute distress, comfortable - HENMT Exam HENMT: normocephalic, atraumatic - Eye Exam Eyes:: normal conjunctiva - Neck Exam Neck:: normal visual inspection, thyroid normal, no lymphadenopathy - Respiratory Exam Respiratory:: able to speak in complete sentences Comments: Bilateral coarse breath sounds heard. Unchanged from yesterday. - Cardiovascular Exam Cardiac:: S1, S2 - GI Exam GI:: soft, no hepatosplenomegaly - Skin Exam Skin: warm, no rash, dry - Neurological Exam Neurological: alert, awake, normal cognition - Extremities Exam Extremities: no cyanosis, no clubbing, no edema - Psychiatric Exam Psychiatric: normal affect Assessment and Plan - Assessment and plan all Dx Assessment and Plan for all problems:: #Acute hypoxic respiratory failure: #COVID-19 pneumonia: #COVID-19 pneumonia: #Acute hypoxic respiratory failure: 69-year-old no prior respiratory complaints never smoker with recent diagnosis of COVID-19 present with worsening respiratory failure cough and productive phlegm. Chest x-ray showed bilateral pulmonary infiltrates. CT showed bilateral diffuse pulmonary infiltrates. No evidence of acute pulmonary embolism. Patient respiratory status remained stable/slightly improved from admission, on 3 L nasal cannula this morning saturating 93 - 94%. Patient net negative around 1 L yesterday. However overall net positive, will closely monitor his volume status and will recommend giving Lasix as needed Plan: - F/U nasal MRSA culture - Follow with final sputum culture results, preliminary staining reported as gram-positive cocci in pairs and chains - Continue ceftriaxone and Azithromycin for community acquired pneumonia: - Continue dexamethasone and remdesivir for COVID-19 pneumonia - DuoNebs every 6 hours as needed for shortness of breath and wheezing - Nasal cannula oxygen supplementation with O2 sat goal of 92% and above - Continue PPI and DVT prophylaxis #Thank you for involving pulmonary inpatient care. We will continue to follow.
[2020-06-29 14:59] LABS: POC Glucose,Bedside 253 (70-110)
--- NOTE | 2020-06-29 17:24 | PC.NURSE ---
Pt has been pleasant and cooperative this shift. A&O X4. No complaints of pain. Pt has had frequent complaints of SOA with exertion. Pt is currently receiving O2 via Vapotherm @ 20 LPM due to sats. <88% per Dr. Myles. Order received to titrate and maintain O2 sats. >88%. Lungs CTA. No edema noted. Skin is C/D/I. Pt ambulates independently to/from the bathroom and throughout the room. Pt uses the urinal to void clear, yellow urine without issue. No BM this shift. Pt bathed at bedside and received a total linen change today. FSBS results have been 194 and 253, both of which required insulin coverage per sliding scale. 18 G peripheral IV in the LT forearm and LT AC are both patent and SL. VSS. Call light within reach. Will continue to monitor.
[2020-06-29 22:04] LABS: POC Glucose,Bedside 240 (70-110)
[2020-06-30] VITALS (12 sets, daily range): BP systolic 95–149; BP diastolic 67–91; PULSE 65–80; RESP 16–28; TEMP 36.3–37.2; O2SAT 86–91; BMI 26.2
[2020-06-30 01:40] LABS: POC Glucose,Bedside 160 (70-110)
--- NOTE | 2020-06-30 02:17 | PC.NURSE ---
patient o2 sats have been sustaining low 80s on maximum amount of oxygen on vapotherm. dr. sidhu notified and new orders received.
--- NOTE | 2020-06-30 02:29 | PC.NURSE ---
0130 RT notified of pts sats maintaining in the 78-80 range.
--- NOTE | 2020-06-30 02:32 | PC.NURSE ---
0210 notified of pts sats maintaining in the 78-80 range even after rt raised vapotherm to max.
--- NOTE | 2020-06-30 02:41 | XR_ITS ---
PROCEDURE: XR CHEST PORTABLE CLINICAL HISTORY: pneumonia COMPARISON: CR CXR2V XR chest 2V from 06/04/2018 CR CXR2V XR chest 2V from 06/21/2018 CR XR CHEST PORTABLE from 06/27/[address] ANGIO CHEST from 06/28/2020 FINDINGS: Mild cardiomegaly. Diffuse bilateral airspace disease consistent with pneumonia which is worse compared to the previous exam. No evidence of pneumothorax. There are low lung volumes. IMPRESSION: Worsening diffuse bilateral pneumonia Dictated by: Michele Sheth MD 06/30/2020 05:41 Michele Sheth MD in [place] 06/30/2020 05:41
--- NOTE | 2020-06-30 03:13 | PC.NURSE ---
received call from dr. sidhu, update on patient status given and chart reviewed from home. new orders placed by dr. sidhu from home.
--- NOTE | 2020-06-30 03:28 | ECG_ITS ---
APPROVED REPORT Exam: Resting ECG HR:72 bpm ECG Measurements Heart Rate 72 AXES SD 172 P 15 QRSd 104 QRS -38 QT 416 T 17 QTc 455 Conclusion Sinus rhythm with occasional premature ventricular complexes Left axis deviation Incomplete right bundle branch block Moderate voltage criteria for LVH, Late r wave progression Abnormal ECG Electronically signed by : Carlos Sims, 06/30/2020 06:24:01
[2020-06-30 04:17] LABS: Basophils % 0.2 % (0.1-2.0); Hematocrit 46.3 % (42.0-52.0); Hemoglobin 16.2 g/dL (14.1-18.0); Lymphocytes # 0.7 K/mm3 (0.7-4.5); Lymphocytes % 8.6 % (10-50); Mean Corpuscular Hemoglobin 32.3 pg (27.0-31.2); Mean Corpuscular Volume 92.4 fl (80-94); Mean Platelet Volume 8.8 fl (7.4-10.4); Monocytes # 0.8 K/mm3 (0.1-1.0); Monocytes % 10.1 % (1.7-9.3); Neutrophils # 6.3 K/mm3 (1.8-7.8); Neutrophils % 81.1 % (37.0-80.0); Platelet Count 188 K/mm3 (142-424); Red Blood Count 5.01 M/mm3 (4.60-6.20); Red Cell Distribution Width 12.6 % (11.5-17.5); White Blood Count 7.8 K/mm3 (4.8-10.8)
[2020-06-30 04:26] LABS: Chloride 99 mmol/L (98-107); Potassium 3.5 mmoL/L (3.5-5.1); Sodium 135 mmol/L (136-145)
[2020-06-30 04:29] LABS: Anion Gap 11.5 mEq/L (5-15); Blood Urea Nitrogen 23 mg/dl (9-20); Calcium 8.8 mg/dl (8.4-10.2); Carbon Dioxide 28 mmol/L (22.0-30.0); Creatine Kinase 246 U/L (55-170); Creatinine Clearance Estimated 94 mL/min (50-200); Estimated Glomerular Filt Rate 96 ml/min (>60); GFR (African American) 116 ML/MIN (>60); Glucose 153 mg/dl (74-100)
[2020-06-30 04:39] LABS: CKMB Relative Index 0.6 U/L (0-4.0); Creatine Kinase MB 1.5 ng/ml (0.0-2.03)
[2020-06-30 04:46] LABS: Troponin I < 0.01 ng/ml (0.00-0.034)
--- NOTE | 2020-06-30 06:44 | PC.NURSE ---
shift summary pt remained on vaportherm at beginning of shift gradually increased fio2 until vapotherm was no longer met pts needs, MD notified and new orders recieved. pts sats maintained greater then 90% after placing on bipap. 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 no complaints of nausea, vomiting, dirrhea, or pain. voiding clear yellow urine. pt A/O X4.
--- NOTE | 2020-06-30 09:52 | HMH.PHACONS ---
- Pharmacy Consult Date: 06/30/20 Time: 09:52 Referring provider: DR. MANE Reason for Consult:: VANCOMYCIN DOSING Allergies and ADEs:: Allergies Allergy/AdvReac Type Severity Reaction Status Date / Time ceftriaxone [From Rocephin] Allergy Mild Verified 05/24/20 09:28 Home Medications:: Home Medications Medication Instructions Recorded Confirmed Type metformin 1,000 mg tablet 1,000 mg PO BID 04/08/18 06/28/20 History pantoprazole 40 mg tablet,delayed 40 mg PO DAILY 04/08/18 06/28/20 History release tamsulosin 0.4 mg capsule 0.4 mg PO DAILY 04/08/18 06/28/20 History dapagliflozin 10 mg tablet 10 mg PO DAILY 30 Days #30 tab 01/14/19 06/28/20 History Clopidogrel Bisulfate [Plavix] 75 mg PO DAILY 06/27/20 06/28/20 History Losartan Potassium [Cozaar 50mg 50 mg PO DAILY 06/27/20 06/28/20 History Tablets] Metoprolol Succinate [Metoprolol 25 mg PO DAILY 06/27/20 06/27/20 History Succinate 25mg Tablet*] Aspirin [Aspirin 81mg chewable 81 mg PO DAILY 06/28/20 06/28/20 History tab] Azithromycin 250 mg PO DAILY 06/28/20 06/28/20 History Ketorolac Tromethamine 1 drp EYE-RIGHT BID 06/28/20 06/28/20 History Prednisolone Acetate/Pf 1 drop OP BID 06/28/20 06/28/20 History [Prednisolone Acet 1% Eye Drop] Atorvastatin Calcium [Lipitor 40mg 40 mg PO DAILY 06/29/20 06/29/20 History Tab] Multivitamin 1 each PO DAILY 06/29/20 06/29/20 History Height: 1.88 m Weight: 92.731 kg Laboratory Results:: Laboratory Results - last 24 hr 06/29/20 10:31: POC Glucose 194 H 06/29/20 14:49: POC Glucose 253 H 06/29/20 21:52: POC Glucose 240 H 06/30/20 01:31: POC Glucose 160 H 06/30/20 03:38: WBC 7.8, RBC 5.01, Hgb 16.2, Hct 46.3, MCV 92.4, MCH 32.3 H, MCHC 35.0, RDW 12.6, Plt Count 188 D, MPV 8.8, Neut % (Auto) 81.1 H, Lymph % (Auto) 8.6 L, [place] % (Auto) 10.1 H, Eos % (Auto) 0.0 L, Baso % (Auto) 0.2, Neut # (Auto) 6.3, Lymph # (Auto) 0.7, [place] # (Auto) 0.8, Eos # (Auto) 0.0, Baso # (Auto) 0.0 06/30/20 03:38: Sodium 135 L, Potassium 3.5, Chloride 99, Carbon Dioxide 28 D, Anion Gap 11.5, BUN 23 H, Creatinine 0.80, Estimated Creat Clear 94, Estimated GFR 96, Est GFR ( Amer) 116, Glucose 153 H, Calcium 8.8, Total Creatine Kinase 246 H, CK-MB (CK-2) 1.5, CK-MB (CK-2) Rel Index 0.6, Troponin I < 0.01 Medical History: Reports:: Coronary Artery Disease (Stent placement March 2018.), Diabetes Mellitus Type 2, Gastroesophageal Reflux Disease(GERD), Hyperlipidemia, Hypertension Denies:: Cancer, Diabetes Mellitus Type 1, MRSA, Pulmonary Embolism Assessment and Plan - Assessment and plan all Dx Assessment and Plan for all problems:: Patient: Floor: Age: 69 yo Serum creatinine: 1 mg/dL Height: 74.0 Inches Weight (kg): 92.7 IBW (kg): 82.20 Dosing wt(kg): 92.7 Estimated Creatinine clearance (ml/min): 82.2 CRCL method: Cockcroft and Gault using ibw(default). Drug selected: Vancomycin Loading dose (mg): 0 Vd (liters): 74.2 (factor used: 0.8 L/kg) Subhash (hr-1): 0.073 Half life (hrs): 9.50 Recommended dose: 1750 mg Interval: 12 hrs Infusion time (hrs): 2.0 Predicted peak (mcg/mL): 37.6 Predicted trough (mcg/mL): 18.12 Total body weight is being used for vancomycin dosing. Recommendations: Give Vancomycin 1750 mg q 12 hrs with an expected Cpeak of 37.6 mcg/ml and an expected Ctrough of 18.12 mcg/ml
[2020-06-30 11:10] LABS: POC Glucose,Bedside 143 (70-110)
--- NOTE | 2020-06-30 12:45 | HMH.ACPN2 ---
Internal Medicine - PN: Subj *Date: 06/30/20 *Time: 12:45 Interval history: The patient was not able to maintain O2 saturations greater than 90 last night and had to go on BiPAP at 2:45 AM. I ordered cardiac enzymes and EKG at that time as well. Cardiac enzymes are negative but CPK is significantly elevated consistent with a systemic inflammatory response from the Covid. He has maintained saturations greater than 90 on BiPAP. He comes back on to [facility] in order to eat. He is not really in distress but his chest x-ray showed worsening. Dr. Rodriguez spoke to Dr. Myles this morning. Antibiotic treatment was changed to Zosyn and vancomycin, with recognition of gram-positive cocci in the sputum.. Azithromycin was discontinued. The patient has ceftriaxone listed as an allergy, but on questioning he describes only local irritation and a burning sensation when he has received that in the past. There has been no generalized allergic reaction. When he is examined today he is sitting up and eating. He is able to speak. He coughs readily. He has bilateral rales more prominent on the left side. There were several home medications that he was not receiving and these have been ordered. I would like to also check his A1c. Exam Vital signs and Labs for Last 24 Hours: Temp Pulse Resp BP Pulse Ox 97.8 F 78 20 149/91 H 86 L 06/30/20 12:00 06/30/20 12:00 06/30/20 12:00 06/30/20 12:00 06/30/20 12:00 Laboratory Results - last 24 hr 06/29/20 14:49: POC Glucose 253 H 06/29/20 21:52: POC Glucose 240 H 06/30/20 01:31: POC Glucose 160 H 06/30/20 03:38: WBC 7.8, RBC 5.01, Hgb 16.2, Hct 46.3, MCV 92.4, MCH 32.3 H, MCHC 35.0, RDW 12.6, Plt Count 188 D, MPV 8.8, Neut % (Auto) 81.1 H, Lymph % (Auto) 8.6 L, [place] % (Auto) 10.1 H, Eos % (Auto) 0.0 L, Baso % (Auto) 0.2, Neut # (Auto) 6.3, Lymph # (Auto) 0.7, [place] # (Auto) 0.8, Eos # (Auto) 0.0, Baso # (Auto) 0.0 06/30/20 03:38: Sodium 135 L, Potassium 3.5, Chloride 99, Carbon Dioxide 28 D, Anion Gap 11.5, BUN 23 H, Creatinine 0.80, Estimated Creat Clear 94, Estimated GFR 96, Est GFR ( Amer) 116, Glucose 153 H, Calcium 8.8, Total Creatine Kinase 246 H, CK-MB (CK-2) 1.5, CK-MB (CK-2) Rel Index 0.6, Troponin I < 0.01 06/30/20 11:02: POC Glucose 143 H I & O for Last 24 hours: Intake & Output 06/28/20 06/29/20 06/30/20 07/01/20 11:59 11:59 11:59 11:59 Intake Total 1490 / 1490 2140 / 2140 1410 / 1410 Output Total 1650 / 1650 1676 / 1676 2950 / 2950 Balance -160 / -160 464 / 464 -1540 / -1540 Weight 207 lb 3 oz 204 lb 7 oz Microbiology Reports for the Last 24 Hours: Microbiology 06/28/20 21:52 Sputum - Expectorated Sputum Gram Stain - Final 06/28/20 21:52 Sputum - Expectorated Sputum Sputum Culture - Preliminary 06/27/20 15:15 Blood Blood Culture - Preliminary NO GROWTH AFTER 48 HOURS 06/27/20 15:15 Blood Blood Culture - Preliminary NO GROWTH AFTER 48 HOURS - Constitutional mild distress (Sitting up and eating) - *Routine HEENT Exam Head: Present: normocephalic Eye: Present: PERRL ENT: Present: mucous membranes moist - *Routine Respiratory Exam Present: decreased breath sounds, rales - *Routine Cardiovascular Exam Present: RRR - *Routine Abdominal Exam Present: soft. Absent: tenderness - *Routine Neurological Exam Present: alert, oriented X3, normal speech. Absent: altered mental status Assessment and Plan - Assessment and plan all Dx Assessment and Plan for all problems:: Medication adjustments as described in the note above. We will continue to use BiPAP and Vapotherm as indicated by oxygen saturations.
--- NOTE | 2020-06-30 16:52 | PC.NURSE ---
PT HAS DONE OK TODAY. PT HAS BEEN ON BIPAP MAJORITY OF THE DAY. WAS PLACED ON VAPOTHERM BY RT DURING MEALS, VAPOTHERM 40L 100% AND O2 SAT WOULD BE IN THE MID 80'S. MD MANE MADE AWARE AND WAS OK WITH IT WHILE PT WAS EATING. VSS. WILL CONT. TO MONITOR.
[2020-06-30 17:20] LABS: POC Glucose,Bedside 223 (70-110)
[2020-06-30 19:48] LABS: POC Glucose,Bedside 167 (70-110)
--- NOTE | 2020-06-30 23:24 | PC.NURSE ---
09 RT notified of pt complaint with bipap pts sats dropped to 78-80 range, RT switched bipap machine pt continued to sat low. RT returned and turned the pts fio2 to 100%
--- NOTE | 2020-06-30 23:29 | PC.NURSE ---
2200 MD notified of pts sats ranging from 78-80 on bipap with respiratory rate at 32-34 and pt anxious, new orders aquired.
[2020-07-01] VITALS (13 sets, daily range): BP systolic 95–122; BP diastolic 56–74; PULSE 61–79; RESP 22–33; TEMP 35.9–37.1; O2SAT 80–96
--- NOTE | 2020-07-01 04:42 | PC.NURSE ---
shift summary pt maintaining sats 85-90% while resting after morphine respiratory rate stays between 24-30, while awake pts sats decrease to 78-80% and respiratory rate increases to 32-35 . when bipap off and NC on 6lpm to get a drink of water pts sats dropped to 72%, pt recovered within 5min after bipap was put back on. pt remains nsr without ectopy on transition teacher. pt uses bedside urinal, urine is clear and yellow. pt remains A/O X4 and denies sob, nausea, vomiting, diarrhea, or pain.
[2020-07-01 05:48] LABS: POC Glucose,Bedside 102 (70-110)
[2020-07-01 11:10] LABS: ABG Base Excess -0.1 mmol/L (-2.4-2.3); ABG Oxygen Saturation 86 % (90-100); ABG PCO2 36.2 mmhg (35.0-45.0); ABG PH 7.44 mmol/L (7.35-7.45); ABG TCO2 25.1 mmhg (23-27)
[2020-07-01 11:13] LABS: Allen's Test Acceptable; Oxygen 100 %; PEEP 9; Pressure Support 18; Source Right Radial
[2020-07-01 11:13] LABS: POC Glucose,Bedside 134 (70-110)
[2020-07-01 11:14] LABS: ABG PO2 48.5 mmhg (80-100)
--- NOTE | 2020-07-01 13:24 | PC.NURSE ---
ORDERED FOR IPAP TO BE INCREASED FROM 18 TO 20. PT TOLERATED CHANGE WELL. SATURATIONS 92%.
--- NOTE | 2020-07-01 13:28 | HMH.ACPN2 ---
Internal Medicine - PN: Subj *Date: 07/01/20 *Time: 13:28 Interval history: He continues to struggle to maintain oxygen saturations greater than 90. He is on BiPAP with 100% FiO2. His inspiratory pressure is 17 or 18 his expiratory pressure is 8. A blood gas was obtained after 30 minutes on BiPAP and shows his pH to be 7.44 but his PO2 level is 44. He is awake and alert and not in severe distress. He is unable to eat because he cannot tolerate the Vapotherm. If he rests comfortably with BiPAP he is stable. He has decreased breath sounds bilaterally with rales greater than mid loja. He does not have leg edema. His heart rate and rhythm is stable. Exam Vital signs and Labs for Last 24 Hours: Temp Pulse Resp BP Pulse Ox 98.2 F 79 27 H 122/68 80 L 07/01/20 08:00 07/01/20 08:00 07/01/20 08:00 07/01/20 08:00 07/01/20 08:50 Laboratory Results - last 24 hr 06/30/20 15:00: Hemoglobin A1c 7.0 H 06/30/20 17:08: POC Glucose 223 H 06/30/20 19:39: POC Glucose 167 H 07/01/20 05:38: POC Glucose 102 07/01/20 09:44: Specimen Source Right radial, O2 % 100, ABG pH 7.44, ABG pCO2 36.2, ABG pO2 48.5 L, ABG HCO3 24.0, ABG Total CO2 25.1, ABG O2 Saturation 86 L*, ABG Base Excess -0.1, Michele Test Acceptable, PEEP 9 07/01/20 11:05: POC Glucose 134 H I & O for Last 24 hours: Intake & Output 06/29/20 06/30/20 07/01/20 07/02/20 11:59 11:59 11:59 11:59 Intake Total 2140 / 2140 1410 / 1410 1440 / 1440 Output Total 1676 / 1676 2950 / 2950 2550 / 2550 365 / 365 Balance 464 / 464 -1540 / -1540 -1110 / -1110 -365 / -365 Weight 204 lb 7 oz Microbiology Reports for the Last 24 Hours: Microbiology 06/28/20 21:52 Sputum - Expectorated Sputum Gram Stain - Final 06/28/20 21:52 Sputum - Expectorated Sputum Sputum Culture - Preliminary - Constitutional mild distress - *Routine HEENT Exam Head: Present: normocephalic Eye: Present: PERRL ENT: Present: mucous membranes moist - *Routine Respiratory Exam Present: decreased breath sounds, rales - *Routine Cardiovascular Exam Present: RRR. Absent: ectopic - *Routine Abdominal Exam Present: soft. Absent: tenderness - *Routine Extremities Exam Absent: edema - *Routine Neurological Exam Present: alert, oriented X3 Assessment and Plan (1) Pneumonia due to COVID-19 virus Status: Acute Category: Medical Code(s): U07.1 - COVID-19; J12.82 - Pneumonia due to coronavirus disease 2019 (2) Respiratory failure with hypoxia Status: Acute Qualifiers: Chronicity: acute Qualified Code(s): J96.01 - Acute respiratory failure with hypoxia Category: Medical Code(s): J96.91 - Respiratory failure, unspecified with hypoxia (3) CAD (coronary artery disease), [place] coronary artery Status: Chronic Qualifiers: [place] vs. 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 Chest x-ray will be repeated. He is at risk for having to be intubated.
--- NOTE | 2020-07-01 13:32 | XR_ITS ---
PROCEDURE: XR CHEST PORTABLE CLINICAL HISTORY: COVID-19 pnneumonia COMPARISON: CR CXR2V XR chest 2V from 06/21/2018 CR XR CHEST PORTABLE from 06/27/[address] ANGIO CHEST from 06/28/2020 CR XR CHEST PORTABLE from 06/30/2020 FINDINGS: Poor inspiration. However there has been interval improvement in the bilateral pneumonic infiltrates compared to the most recent study 06/30/2020. There is increased aeration left perihilar region left upper lobe and partial clearing of the infiltrate in the right upper lobe as well. Most of the infiltrate in the right lower lobe has resolved. Minimal bilateral perihilar infiltrates remain. The lower most lung loja and costophrenic angles remain clear. There is stable mild generalized cardiomegaly without obvious failure. There multiple calcified right hilar nodes. IMPRESSION: Resolving bilateral ill-defined pneumonic infiltrates Dictated by: Dr. Robin Michaud MD 07/01/2020 15:03 Dr. Robin Michaud MD in [place] 07/01/2020 15:03
[2020-07-01 14:33] LABS: Anion Gap 15.2 mEq/L (5-15); Blood Urea Nitrogen 28 mg/dl (9-20); Calcium 9.1 mg/dl (8.4-10.2); Carbon Dioxide 24 mmol/L (22.0-30.0); Chloride 100 mmol/L (98-107); Creatinine Clearance Estimated 93 mL/min (50-200); Estimated Glomerular Filt Rate 74 ml/min (>60); GFR (African American) 90 ML/MIN (>60); Glucose 184 mg/dl (74-100); Potassium 4.2 mmoL/L (3.5-5.1); Sodium 135 mmol/L (136-145)
[2020-07-01 16:54] LABS: POC Glucose,Bedside 173 (70-110)
--- NOTE | 2020-07-01 18:24 | PC.NURSE ---
pt has done very well today. pt placed on vapotherm during breakfast, o2 sat dropped to the 70's, md aware. placed back on bipap when done eating. pt decided to skip lunch to rest. while on bipap pt o2 stayed in the low to mid 90's. pt ambulated with assistance to chair, and then switched over to vapotherm to eat dinner. pt has tolerated an o2 sat 88% or above since placed on vapotherm. pt has used IS correctly while sitting up, on vapotherm. will cont. to monitor.
[2020-07-01 19:55] LABS: POC Glucose,Bedside 229 (70-110)
[2020-07-01 21:46] LABS: Vancomycin,Trough 9.5 ug/mL (5.0-10.0)
--- NOTE | 2020-07-01 22:23 | PC.NURSE ---
2215 vancomycin started 2000mg 125ml/hr
[2020-07-02] VITALS (13 sets, daily range): BP systolic 115–129; BP diastolic 69–80; PULSE 60–86; RESP 22–34; TEMP 36.5–37.7; O2SAT 74–91
--- NOTE | 2020-07-02 04:24 | PC.NURSE ---
shift summary pt was switched from vapotherm to bipap at bedtime pts sats maintained 88-95% with resparations maintained 28-33, lungs sound clear but diminished. pt only required one dose of morphine. pt switched to NC during the night to drink water sats dropped 71% once back on bipap pts sats recovered in less then 4 minutes. pt remained NSR on the case monitor with no ectopy. pt independently voids in bedside urinal, urine clear and yellow in color. pt A/O X4. pt denies any pain, sob, nausea, vomiting, or diarrhea.
[2020-07-02 05:28] LABS: POC Glucose,Bedside 120 (70-110)
--- NOTE | 2020-07-02 08:59 | HMH.ACPN2 ---
Internal Medicine - PN: Subj *Date: 07/02/20 *Time: 08:59 Interval history: Patient states he feels better this morning. Using Vapotherm for supplemental oxygen now. Exam Vital signs and Labs for Last 24 Hours: Temp Pulse Resp BP Pulse Ox 100 F H 75 32 H 126/79 82 L 07/02/20 04:00 07/02/20 04:14 07/02/20 04:00 07/02/20 04:00 07/02/20 07:25 Laboratory Results - last 24 hr 07/01/20 09:44: Specimen Source Right radial, O2 % 100, ABG pH 7.44, ABG pCO2 36.2, ABG pO2 48.5 L, ABG HCO3 24.0, ABG Total CO2 25.1, ABG O2 Saturation 86 L*, ABG Base Excess -0.1, Michele Test Acceptable, PEEP 9 07/01/20 11:05: POC Glucose 134 H 07/01/20 13:30: Sodium 135 L, Potassium 4.2, Chloride 100, Carbon Dioxide 24, Anion Gap 15.2 H, BUN 28 H, Creatinine 1.00 D, Estimated Creat Clear 93, Estimated GFR 74, Est GFR ( Amer) 90 D, Glucose 184 H, Calcium 9.1 07/01/20 16:46: POC Glucose 173 H 07/01/20 19:47: POC Glucose 229 H 07/01/20 21:05: Vancomycin Trough 9.5 07/02/20 05:15: POC Glucose 120 H Vital Signs - 24 hr 07/01/20 12:00 07/01/20 16:00 07/01/20 16:30 Temperature 96.7 F L Pulse Rate Pulse Rate [Apical] 75 63 Pulse Rate [Right Radial] Respiratory Rate 33 H 33 H 24 Blood Pressure [Right Arm] 98/66 L 95/56 L 02 Sat by Pulse Oximetry 91 L 96 07/01/20 20:00 07/01/20 20:58 07/02/20 00:00 Temperature 98.1 F 99.1 F Pulse Rate 68 Pulse Rate [Apical] 72 71 Pulse Rate [Right Radial] 72 Respiratory Rate 28 H 28 H 28 H Blood Pressure [Right Arm] 113/74 129/80 02 Sat by Pulse Oximetry 86 L 91 L 07/02/20 00:52 07/02/20 02:00 07/02/20 04:00 Temperature 100 F H Pulse Rate 70 Pulse Rate [Apical] 72 Pulse Rate [Right Radial] Respiratory Rate 28 H 32 H Blood Pressure [Right Arm] 126/79 02 Sat by Pulse Oximetry 88 L 90 L 07/02/20 04:14 07/02/20 07:25 Temperature Pulse Rate 75 Pulse Rate [Apical] Pulse Rate [Right Radial] Respiratory Rate Blood Pressure [Right Arm] 02 Sat by Pulse Oximetry 82 L I & O for Last 24 hours: Intake & Output 06/29/20 06/30/20 07/01/20 07/02/20 23:59 23:59 23:59 23:59 Intake Total 1810 / 1810 1680 / 1680 480 / 480 Output Total 2501 / 3301 1700 / 3800 2765 / 2765 Balance -691 / -1491 -20 / -2120 -2285 / -2285 Weight 207 lb 3.752 oz 204 lb 7 oz Microbiology Reports for the Last 24 Hours: Microbiology 06/28/20 21:52 Sputum - Expectorated Sputum Gram Stain - Final 06/28/20 21:52 Sputum - Expectorated Sputum Sputum Culture - Preliminary - Constitutional no acute distress - *Routine HEENT Exam Head: Present: normocephalic Eye: Present: EOMI ENT: Present: mucous membranes moist - *Routine Neck Exam Present: supple. Absent: lymphadenopathy - *Routine Respiratory Exam Present: crackles (few bibasilar, mainly clear lung sounds). Absent: wheezes - *Routine Cardiovascular Exam Present: RRR - *Routine Abdominal Exam Present: soft, normoactive bowel sounds. Absent: tenderness - *Routine Extremities Exam Absent: cyanosis, clubbing, edema - *Routine Skin Exam Present: warm. Absent: rash - *Routine Neurological Exam Present: alert, oriented X3 Assessment and Plan (1) Pneumonia due to COVID-19 virus Status: Acute Category: Medical Code(s): U07.1 - COVID-19; J12.82 - Pneumonia due to coronavirus disease 2019 (2) Respiratory failure with hypoxia Status: Acute Qualifiers: Chronicity: acute Qualified Code(s): J96.01 - Acute respiratory failure with hypoxia Category: Medical Code(s): J96.91 - Respiratory failure, unspecified with hypoxia (3) CAD (coronary artery disease), [place] coronary artery Status: Chronic Qualifiers: [place] vs. transplanted heart: [place] heart Associated angina: without angina Qualified Code(s): I25.10 - Atherosclerotic heart disease of [place] coronary artery without angina pectoris Category: Medical Code(s): I25.10 - Atherosclerotic heart di
--- NOTE | 2020-07-02 09:33 | HMH.PHACONS ---
- Pharmacy Consult Date: 07/02/20 Time: 09:33 Referring provider: DR. MANE Reason for Consult:: VANCOMYCIN TROUGH LEVEL Allergies and ADEs:: Allergies Allergy/AdvReac Type Severity Reaction Status Date / Time ceftriaxone [From Rocephin] Allergy Mild Verified 05/24/20 09:28 Home Medications:: Home Medications Medication Instructions Recorded Confirmed Type metformin 1,000 mg tablet 1,000 mg PO BID 04/08/18 06/28/20 History pantoprazole 40 mg tablet,delayed 40 mg PO DAILY 04/08/18 06/28/20 History release tamsulosin 0.4 mg capsule 0.4 mg PO DAILY 04/08/18 06/28/20 History dapagliflozin 10 mg tablet 10 mg PO DAILY 30 Days #30 tab 01/14/19 06/28/20 History Clopidogrel Bisulfate [Plavix] 75 mg PO DAILY 06/27/20 06/28/20 History Losartan Potassium [Cozaar 50mg 50 mg PO DAILY 06/27/20 06/28/20 History Tablets] Metoprolol Succinate [Metoprolol 25 mg PO DAILY 06/27/20 06/27/20 History Succinate 25mg Tablet*] Aspirin [Aspirin 81mg chewable 81 mg PO DAILY 06/28/20 06/28/20 History tab] Azithromycin 250 mg PO DAILY 06/28/20 06/28/20 History Ketorolac Tromethamine 1 drp EYE-RIGHT BID 06/28/20 06/28/20 History Prednisolone Acetate/Pf 1 drop OP BID 06/28/20 06/28/20 History [Prednisolone Acet 1% Eye Drop] Atorvastatin Calcium [Lipitor 40mg 40 mg PO DAILY 06/29/20 06/29/20 History Tab] Multivitamin 1 each PO DAILY 06/29/20 06/29/20 History Height: 1.88 m Weight: 92.731 kg Laboratory Results:: Laboratory Results - last 24 hr 07/01/20 09:44: Specimen Source Right radial, O2 % 100, ABG pH 7.44, ABG pCO2 36.2, ABG pO2 48.5 L, ABG HCO3 24.0, ABG Total CO2 25.1, ABG O2 Saturation 86 L*, ABG Base Excess -0.1, Michele Test Acceptable, PEEP 9 07/01/20 11:05: POC Glucose 134 H 07/01/20 13:30: Sodium 135 L, Potassium 4.2, Chloride 100, Carbon Dioxide 24, Anion Gap 15.2 H, BUN 28 H, Creatinine 1.00 D, Estimated Creat Clear 93, Estimated GFR 74, Est GFR ( Amer) 90 D, Glucose 184 H, Calcium 9.1 07/01/20 16:46: POC Glucose 173 H 07/01/20 19:47: POC Glucose 229 H 07/01/20 21:05: Vancomycin Trough 9.5 07/02/20 05:15: POC Glucose 120 H Medical History: Reports:: Coronary Artery Disease (Stent placement March 2018.), Diabetes Mellitus Type 2, Gastroesophageal Reflux Disease(GERD), Hyperlipidemia, Hypertension Denies:: Cancer, Diabetes Mellitus Type 1, MRSA, Pulmonary Embolism Assessment and Plan (1) Pneumonia due to COVID-19 virus Status: Acute Category: Medical Code(s): U07.1 - COVID-19; J12.82 - Pneumonia due to coronavirus disease 2018 (2) Respiratory failure with hypoxia Status: Acute Qualifiers: Chronicity: acute Qualified Code(s): J96.01 - Acute respiratory failure with hypoxia Category: Medical Code(s): J96.91 - Respiratory failure, unspecified with hypoxia (3) CAD (coronary artery disease), [place] coronary artery Status: Chronic Qualifiers: [place] vs. transplanted heart: [place] heart Associated angina: without angina Qualified Code(s): I25.10 - Atherosclerotic heart disease of [place] coronary artery without angina pectoris Category: Medical Code(s): I25.10 - Atherosclerotic heart disease of [place] coronary artery without angina pectoris (4) DM2 (diabetes mellitus, type 2) Status: Chronic Qualifiers: Diabetes mellitus residential insulin use: without residential use Diabetes mellitus complication status: without complication Qualified Code(s): E11.9 - Type 2 diabetes mellitus without complications Category: Medical Code(s): E11.9 - Type 2 diabetes mellitus without complications - Assessment and plan all Dx Assessment and Plan for all problems:: BASED ON PATIENT FACTORS AND VANCOMYCIN TROUGH LEVEL, RECOMMEND INCREASING DOSE TO VANCOMYCIN 2 GM IV Q12H. PHARMACY WILL CONTINUE TO MONITOR DAILY AND ADJUST APPROPRIATE.
--- NOTE | 2020-07-02 10:23 | P.PN_ITS ---
Internal Medicine - PN: Subj *Date: 07/02/20 *Time: 10:23 Interval history: Patient respiratory status gradually worsened over the weekend, currently on high flow nasal cannula 40 L 100% Exam - Constitutional Comment:: Patient in mild respiratory distress - HENMT Exam HENMT: normocephalic - Eye Exam Eyes:: eyelids normal, normal conjunctiva - Neck Exam Neck:: thyroid normal, no lymphadenopathy - Respiratory Exam Respiratory:: able to speak in complete sentences Comments: Bilateral coarse breath sounds, no audible wheeze heard. - Cardiovascular Exam Cardiac:: regular rhythm, S1, S2 - GI Exam GI:: soft, no hepatosplenomegaly - Skin Exam Skin: warm, no rash - Neurological Exam Neurological: alert, awake, normal cognition - Extremities Exam Extremities: no cyanosis, no clubbing, no edema Assessment and Plan (1) Pneumonia due to COVID-19 virus Status: Acute Category: Medical Code(s): U07.1 - COVID-19; J12.82 - Pneumonia due to coronavirus disease 2019 (2) Respiratory failure with hypoxia Status: Acute Qualifiers: Chronicity: acute Qualified Code(s): J96.01 - Acute respiratory failure with hypoxia Category: Medical Code(s): J96.91 - Respiratory failure, unspecified with hyp oxia (3) CAD (coronary artery disease), [place] coronary artery Status: Chronic Qualifiers: [place] vs. 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 Chest x-ray showed bilateral pulmonary infiltrates. CT showed bilateral diffuse pulmonary infiltrates. No evidence of acute pulmonary embolism. Patient respiratory rate is gradually worsening throughout his hospital course current on high flow nasal cannula 40 L 100% saturating 85 to 90%. Patient despite his low desaturation does not appear to be in respiratory distress. Patient is a DNR/DNI. Examination patient does not appear to be volume overloaded today. We will closely monitor and determine need for Lasix tomorrow Plan: - F/U nasal MRSA culture - Continue vancomycin and Zosyn for possible healthcare associated pneumonia - Continue dexamethasone and remdesivir for COVID-19 pneumonia - DuoNebs every 6 hours as needed for shortness of breath and wheezing - Continue PPI and DVT prophylaxis #Thank you for involving pulmonary inpatient care. We will continue to follow.
--- NOTE | 2020-07-02 10:40 | PC.NURSE ---
Found Pt on BIPAP upon entering the room. See chart for BIPAP check.
[2020-07-02 11:44] LABS: POC Glucose,Bedside 159 (70-110)
[2020-07-02 16:25] LABS: POC Glucose,Bedside 209 (70-110)
--- NOTE | 2020-07-02 16:57 | DIET.NUTRFU ---
Addendum entered by Chela Mccabe 07/04/20 15:52: PO intakes 50% other than today, he had 0-minimal intake for breakfast and lunch. BG moderate-high- ~200. Pt is without edema, weight remains stable, stable renal function. Salt restriction removed from diet order. Continuing to monitor. Original Note: PO intakes 50-75% + BID energy/protein supplements, BG moderate- ~160. No nutritional concerns at this time, continuing to monitor.
--- NOTE | 2020-07-02 19:39 | PC.NURSE ---
Patient has had a good day. No changes neurologically, remains on vapotherm and bipap. sat in recliner for dinner and oxygenation did well. No issues or concerns at this time.
[2020-07-02 21:28] LABS: POC Glucose,Bedside 225 (70-110)
[2020-07-03] VITALS (14 sets, daily range): BP systolic 103–135; BP diastolic 61–79; PULSE 60–90; RESP 5–34; TEMP 36.7–38; O2SAT 80–89
--- NOTE | 2020-07-03 05:39 | PC.NURSE ---
PT A&O x4 and has slept well through the night. C/o persistant cough and stated that he felt as though he couldn't breath while coughing. Sats would drop to mid to low 70s during coughing. Pt lung sounds are diminished wiht course crackles noted. Pt on bipap through the night with sats in the high 80s. UOP has been adequate, bowel sounds positive x4, abd soft and nontender. VSS, call light in reach, no concerns at this time.
[2020-07-03 06:24] LABS: POC Glucose,Bedside 159 (70-110)
--- NOTE | 2020-07-03 08:11 | PC.NURSE ---
Notified lab that AM labs were ready for garbage pick up man on this pt at 0625. Re-notified lab blood still waiting for garbage pick up man at 0800
--- NOTE | 2020-07-03 09:11 | HMH.ACPN2 ---
Internal Medicine - PN: Subj *Date: 07/03/20 *Time: 09:11 Interval history: Patient was bothered by a dry cough overnight, no other new complaints. Exam Vital signs and Labs for Last 24 Hours: Temp Pulse Resp BP Pulse Ox 98.0 F 84 22 135/72 80 L 07/03/20 07:55 07/03/20 07:55 07/03/20 07:55 07/03/20 07:55 07/03/20 07:55 Laboratory Results - last 24 hr 07/02/20 11:35: POC Glucose 159 H 07/02/20 16:10: POC Glucose 209 H 07/02/20 21:11: POC Glucose 225 H 07/03/20 06:00: POC Glucose 159 H Vital Signs - 24 hr 07/02/20 12:00 07/02/20 16:00 07/02/20 20:00 Temperature 98.1 F 97.7 F 98.3 F Pulse Rate 68 64 60 Pulse Rate [Apical] 73 70 66 Respiratory Rate 22 24 23 Blood Pressure [Right Arm] 116/72 117/73 127/78 02 Sat by Pulse Oximetry 88 L 91 L 89 L 07/03/20 00:00 07/03/20 01:43 07/03/20 04:00 Temperature 98.7 F 100.4 F H Pulse Rate 80 70 Pulse Rate [Apical] 67 90 Respiratory Rate 20 28 H 28 H Blood Pressure [Right Arm] 117/75 117/75 02 Sat by Pulse Oximetry 85 L 83 L 07/03/20 06:00 07/03/20 07:55 Temperature 98.0 F Pulse Rate Pulse Rate [Apical] 84 Respiratory Rate 34 H 22 Blood Pressure [Right Arm] 135/72 02 Sat by Pulse Oximetry 80 L I & O for Last 24 hours: Intake & Output 06/30/20 07/01/20 07/02/20 07/03/20 23:59 23:59 23:59 23:59 Intake Total 1680 / 1680 480 / 480 1680 / 1680 480 / 480 Output Total 1700 / 3800 2765 / 2765 2400 / 2800 600 / 600 Balance -20 / -2120 -2285 / -2285 -720 / -1120 -120 / -120 Weight 204 lb 7 oz Microbiology Reports for the Last 24 Hours: Microbiology 01/06/21 15:15 Blood Blood Culture - Final NO GROWTH AFTER 5 DAYS 06/27/20 15:15 Blood Blood Culture - Final NO GROWTH AFTER 5 DAYS 06/28/20 21:52 Sputum - Expectorated Sputum Gram Stain - Final 06/28/20 21:52 Sputum - Expectorated Sputum Sputum Culture - Final Normal Respiratory Faiza - Constitutional no acute distress (BiPAP in use) - *Routine HEENT Exam Head: Present: normocephalic Eye: Present: EOMI, PERRL ENT: Present: mucous membranes moist - *Routine Neck Exam Present: supple. Absent: lymphadenopathy - *Routine Respiratory Exam Present: crackles (few, mainly coarse breath sounds noted). Absent: wheezes - *Routine Cardiovascular Exam Present: RRR - *Routine Abdominal Exam Present: soft, normoactive bowel sounds. Absent: tenderness - *Routine Extremities Exam Absent: cyanosis, clubbing, edema - *Routine Skin Exam Present: warm. Absent: rash - *Routine Neurological Exam Present: alert Assessment and Plan (1) Pneumonia due to COVID-19 virus Status: Acute Category: Medical Code(s): U07.1 - COVID-19; J12.82 - Pneumonia due to coronavirus disease 2019 (2) Respiratory failure with hypoxia Status: Acute Qualifiers: Chronicity: acute Qualified Code(s): J96.01 - Acute respiratory failure with hypoxia Category: Medical Code(s): J96.91 - Respiratory failure, unspecified with hypoxia (3) CAD (coronary artery disease), [place] coronary artery Status: Chronic Qualifiers: [place] vs. 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
--- NOTE | 2020-07-03 09:48 | SW/DCPLANNER ---
PATIENT REMAINS IN THE COVID UNIT.. WILL FOLLOW PATIENT ASSIST WITH ANY NEEDS HE MAY HAVE AT TIME OF DISPOSITION...
[2020-07-03 11:31] LABS: Basophils # 0.1 K/mm3 (0-0.2); Basophils % 0.5 % (0.1-2.0); Eosinophils # 0.1 K/mm3 (0.0-0.4); Eosinophils % 0.4 % (0.1-12.0); Hematocrit 45.9 % (42.0-52.0); Hemoglobin 15.2 g/dL (14.1-18.0); Lymphocytes # 0.6 K/mm3 (0.7-4.5); Lymphocytes % 5.1 % (10-50); Mean Corpuscular HGB Conc 33.1 g/dL (31.8-35.4); Mean Corpuscular Hemoglobin 31.4 pg (27.0-31.2); Mean Corpuscular Volume 94.7 fl (80-94); Mean Platelet Volume 7.6 fl (7.4-10.4); Monocytes # 0.9 K/mm3 (0.1-1.0); Monocytes % 7.9 % (1.7-9.3); Neutrophils # 10.1 K/mm3 (1.8-7.8); Platelet Count 221 K/mm3 (142-424); Red Blood Count 4.85 M/mm3 (4.60-6.20); White Blood Count 11.8 K/mm3 (4.8-10.8)
[2020-07-03 11:35] LABS: MANUAL DIFFERENTIAL MANUAL DIFFERENTIAL (MANUAL DIFF)
[2020-07-03 11:52] LABS: Chloride 101 mmol/L (98-107); Sodium 135 mmol/L (136-145)
[2020-07-03 11:55] LABS: Alanine Aminotransferase 25 U/L (12-78); Albumin Level 3.7 g/dl (3.5-5.0); Alkaline Phosphatase 79 U/L (38-126); Aspartate Amino Transferase 39 U/L (17-59); Bilirubin,Total 0.9 mg/dl (0.2-1.3); Blood Urea Nitrogen 26 mg/dl (9-20); Calcium 9.2 mg/dl (8.4-10.2); Carbon Dioxide 26 mmol/L (22.0-30.0); Creatinine Clearance Estimated 93 mL/min (50-200); Estimated Glomerular Filt Rate 74 ml/min (>60); GFR (African American) 90 ML/MIN (>60); Globulin 3.6 g/dL (1.3-3.2); Glucose 271 mg/dl (74-100); Total Protein,Serum 7.3 g/dl (6.3-8.2)
[2020-07-03 12:03] LABS: POC Glucose,Bedside 501 (70-110)
[2020-07-03 12:03] LABS: POC Glucose,Bedside 251 (70-110)
[2020-07-03 12:26] LABS: Lymphocytes % 8 % (10-50); Monocytes % 10 % (2-9); Neutrophils % 82 % (42-76); Platelet Estimate Normal; RBC Morphology Normal; Total Cells Counted 100
--- NOTE | 2020-07-03 13:31 | HMH.PULMPN ---
Internal Medicine - PN: Subj *Date: 07/03/20 *Time: 13:31 Interval history: Patient respiratory status remained stable but critical. On intermittent high flow on BiPAP to maintain his saturations above 85%. Exam - Constitutional Comment:: Patient in mild respiratory distress - HENMT Exam HENMT: normocephalic, atraumatic - Eye Exam Eyes:: eyelids normal, normal conjunctiva - Neck Exam Neck:: thyroid normal, no lymphadenopathy - Respiratory Exam Comments: Patient in mild respiratory distress. Intermittently on BiPAP on high flow to maintain his saturations greater than 85%. Unable to completely talk in full sentences. Patient explained detail regarding need for intubation and deleterious effects, patient is not decided. We will follow the patient - Cardiovascular Exam Cardiac:: S1, S2 - GI Exam GI:: soft, no hepatosplenomegaly - Skin Exam Skin: warm, dry - Neurological Exam Neurological: alert, awake, normal cognition - Extremities Exam Extremities: no cyanosis, no clubbing, edema - Psychiatric Exam Psychiatric: normal affect, appearance grossly normal Assessment and Plan (1) Pneumonia due to COVID-19 virus Status: Acute Category: Medical Code(s): U07.1 - COVID-19; J12.82 - Pneumonia due to coronavirus disease 2019 (2) Respiratory failure with hypoxia Status: Acute Qualifiers: Chronicity: acute Qualified Code(s): J96.01 - Acute respiratory failure with hypoxia Category: Medical Code(s): J96.91 - Respiratory failure, unspecified with hypoxia (3) CAD (coronary artery disease), [place] coronary artery Status: Chronic Qualifiers: [place] vs. 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 Chest x-ray showed bilateral pulmonary infiltrates. CT showed bilateral diffuse pulmonary infiltrates. No evidence of acute pulmonary embolism. Patient respiratory rate is gradually worsening throughout his hospital course current on high flow nasal cannula 40 L 100% saturating 85 to 90%. Patient appeared to be in mild respiratory distress this morning. I have explained explained regarding the need for intubation and mechanical ventilation given his worsening respiratory status. Patient stated that he does not want to be intubated however he said he cannot think about it. Will follow with the patient regarding his CODE STATUS Plan: -Oxygen supplementation with BiPAP and high flow to maintain saturation of 88 and above - Lasix 40mg IV once - F/U nasal MRSA culture - Continue vancomycin and Zosyn for possible healthcare associated pneumonia - Continue dexamethasone and remdesivir for COVID-19 pneumonia - DuoNebs every 6 hours as needed for shortness of breath and wheezing - Continue PPI and DVT prophylaxis
--- NOTE | 2020-07-03 15:47 | HMH.ACPN ---
Internal Medicine - PN: Subj *Date: 07/03/20 *Time: 15:47 Exam Vital signs and Labs for Last 24 Hours: Temp Pulse Resp BP Pulse Ox 98.2 F 66 22 103/61 L 89 L 07/03/20 15:24 07/03/20 15:24 07/03/20 15:24 07/03/20 15:24 07/03/20 15:24 Laboratory Results - last 24 hr 07/02/20 16:10: POC Glucose 209 H 07/02/20 21:11: POC Glucose 225 H 07/03/20 06:00: POC Glucose 159 H 07/03/20 11:15: WBC 11.8 H, RBC 4.85, Hgb 15.2, Hct 45.9, MCV 94.7 H, MCH 31.4 H, MCHC 33.1, RDW 13.0, Plt Count 221, MPV 7.6, Neut % (Auto) 86.0 H, Lymph % (Auto) 5.1 L, [place] % (Auto) 7.9, Eos % (Auto) 0.4, Baso % (Auto) 0.5, Neut # (Auto) 10.1 H, Lymph # (Auto) 0.6 L, [place] # (Auto) 0.9, Eos # (Auto) 0.1, Baso # (Auto) 0.1, Total Counted 100, Neutrophils % (Manual) 82 H, Lymphocytes % (Manual) 8 L, Monocytes % (Manual) 10 H, Platelet Estimate Normal, RBC Morphology Normal 07/03/20 11:15: Sodium 135 L, Potassium 4.0, Chloride 101, Carbon Dioxide 26, Anion Gap 12.0, BUN 26 H, Creatinine 1.00, Estimated Creat Clear 93, Estimated GFR 74, Est GFR ( Amer) 90, Glucose 271 H, Calcium 9.2, Total Bilirubin 0.9, AST 39, ALT 25, Alkaline Phosphatase 79, Total Protein 7.3, Albumin 3.7, Globulin 3.6 H, Albumin/Globulin Ratio 1.0 L 07/03/20 11:32: POC Glucose 251 H 07/03/20 11:38: POC Glucose 501 H* I & O for Last 24 hours: Intake & Output 06/30/20 07/01/20 07/02/20 07/03/20 23:59 23:59 23:59 23:59 Intake Total 1680 / 1680 480 / 480 1680 / 1680 600 / 600 Output Total 1700 / 3800 2765 / 2765 2400 / 2800 1200 / 1200 Balance -20 / -2120 -2285 / -2285 -720 / -1120 -600 / -600 Weight 92.731 kg Microbiology Reports for the Last 24 Hours: Microbiology 06/27/20 15:15 Blood Blood Culture - Final NO GROWTH AFTER 5 DAYS 06/27/20 15:15 Blood Blood Culture - Final NO GROWTH AFTER 5 DAYS 06/28/20 21:52 Sputum - Expectorated Sputum Gram Stain - Final 06/28/20 21:52 Sputum - Expectorated Sputum Sputum Culture - Final Normal Respiratory Faiza Assessment and Plan (1) Pneumonia due to COVID-19 virus Status: Acute Category: Medical Code(s): U07.1 - COVID-19; J12.82 - Pneumonia due to coronavirus disease 2019 (2) Respiratory failure with hypoxia Status: Acute Qualifiers: Chronicity: acute Qualified Code(s): J96.01 - Acute respiratory failure with hypoxia Category: Medical Code(s): J96.91 - Respiratory failure, unspecified with hypoxia (3) CAD (coronary artery disease), [place] coronary artery Status: Chronic Qualifiers: [place] vs. transplanted heart: [place] heart Associated angina: without angina Qualified Code(s): I25.10 - Atherosclerotic heart disease of [place] coronary artery without angina pectoris Category: Medical Code(s): I25.10 - Atherosclerotic heart disease of [place] coronary artery without angina pectoris (4) DM2 (diabetes mellitus, type 2) Status: Chronic Qualifiers: Diabetes mellitus jail insulin use: without jail use Diabetes mellitus complication status: without complication Qualified Code(s): E11.9 - Type 2 diabetes mellitus without complications Category: Medical Code(s): E11.9 - Type 2 diabetes mellitus without complications The patient's infection will respond to the chosen ABx?: Yes Is the patient receiving the right drug, dose, and route?: Yes Could a more targeted ABx be ordered?: No
--- NOTE | 2020-07-03 18:27 | PC.NURSE ---
Pt is alert and oriented x4. Lungs clear but diminished. He remains on bipap with O2 sats running in the upper 80's -low 90's. He switches to vapotherm 40L 100% to eat. O2 usually drops to upper 70's on vapotherm. He has rested in bed this shift. He utilizes a urinal at the bedside. No change from morning assessment. Will report to oncoming nurse.
--- NOTE | 2020-07-03 20:08 | PC.NURSE ---
pt requests at this time to revoke dnr status. dnr has been taken of chart and changed in the computer
[2020-07-03 20:26] LABS: POC Glucose,Bedside 204 (70-110)
[2020-07-03 21:08] LABS: Vancomycin,Trough 17.1 ug/mL (5.0-10.0)
[2020-07-04] VITALS (9 sets, daily range): BP systolic 103–138; BP diastolic 63–80; PULSE 70–98; RESP 20–38; TEMP 36.4–37; O2SAT 89–94; BMI 26.4
[2020-07-04 05:52] LABS: POC Glucose,Bedside 131 (70-110)
[2020-07-04 06:31] LABS: Basophils # 0.1 K/mm3 (0-0.2); Basophils % 0.4 % (0.1-2.0); Eosinophils # 0.1 K/mm3 (0.0-0.4); Eosinophils % 0.4 % (0.1-12.0); Hematocrit 43.9 % (42.0-52.0); Hemoglobin 14.7 g/dL (14.1-18.0); Lymphocytes # 0.5 K/mm3 (0.7-4.5); Lymphocytes % 3.3 % (10-50); Mean Corpuscular HGB Conc 33.4 g/dL (31.8-35.4); Mean Corpuscular Hemoglobin 32.3 pg (27.0-31.2); Mean Corpuscular Volume 96.8 fl (80-94); Mean Platelet Volume 8.2 fl (7.4-10.4); Monocytes # 0.7 K/mm3 (0.1-1.0); Monocytes % 4.6 % (1.7-9.3); Neutrophils # 13.7 K/mm3 (1.8-7.8); Neutrophils % 91.2 % (37.0-80.0); Platelet Count 245 K/mm3 (142-424); Red Blood Count 4.53 M/mm3 (4.60-6.20); Red Cell Distribution Width 13.1 % (11.5-17.5)
[2020-07-04 06:49] LABS: Alanine Aminotransferase 19 U/L (12-78); Albumin Level 3.5 g/dl (3.5-5.0); Albumin/Globulin Ratio 0.9 (1.1-1.8); Alkaline Phosphatase 94 U/L (38-126); Anion Gap 13.8 mEq/L (5-15); Aspartate Amino Transferase 38 U/L (17-59); Bilirubin,Total 1.1 mg/dl (0.2-1.3); Blood Urea Nitrogen 25 mg/dl (9-20); Calcium 9.3 mg/dl (8.4-10.2); Carbon Dioxide 25 mmol/L (22.0-30.0); Chloride 103 mmol/L (98-107); Creatinine Clearance Estimated 93 mL/min (50-200); Estimated Glomerular Filt Rate 74 ml/min (>60); GFR (African American) 90 ML/MIN (>60); Globulin 3.8 g/dL (1.3-3.2); Glucose 150 mg/dl (74-100); Potassium 3.8 mmoL/L (3.5-5.1); Sodium 138 mmol/L (136-145); Total Protein,Serum 7.3 g/dl (6.3-8.2)
[2020-07-04 07:07] LABS: MANUAL DIFFERENTIAL MANUAL DIFFERENTIAL (MANUAL DIFF)
--- NOTE | 2020-07-04 07:33 | PC.NURSE ---
pt finished eating breakfast. O2 sat 76% on 100% Vapotherm. Vapotherm turned OFF and Bipap 100% turned on. Sats increased to 89% on bipap. Reviewed code status with pt. He is A&O. He informs me that he changed his code status last night to a FULL CODE.
--- NOTE | 2020-07-04 08:20 | HMH.ACPN2 ---
Internal Medicine - PN: Subj *Date: 07/04/20 *Time: 08:20 Interval history: Patient with no new complaints today. He changed his code status to full code overnight. Exam Vital signs and Labs for Last 24 Hours: Temp Pulse Resp BP Pulse Ox 98.6 F 90 32 H 138/80 85 L 07/04/20 04:00 07/04/20 04:00 07/04/20 04:00 07/04/20 04:00 07/03/20 20:00 Laboratory Results - last 24 hr 07/03/20 11:15: WBC 11.8 H, RBC 4.85, Hgb 15.2, Hct 45.9, MCV 94.7 H, MCH 31.4 H, MCHC 33.1, RDW 13.0, Plt Count 221, MPV 7.6, Neut % (Auto) 86.0 H, Lymph % (Auto) 5.1 L, [place] % (Auto) 7.9, Eos % (Auto) 0.4, Baso % (Auto) 0.5, Neut # (Auto) 10.1 H, Lymph # (Auto) 0.6 L, [place] # (Auto) 0.9, Eos # (Auto) 0.1, Baso # (Auto) 0.1, Total Counted 100, Neutrophils % (Manual) 82 H, Lymphocytes % (Manual) 8 L, Monocytes % (Manual) 10 H, Platelet Estimate Normal, RBC Morphology Normal 07/03/20 11:15: Sodium 135 L, Potassium 4.0, Chloride 101, Carbon Dioxide 26, Anion Gap 12.0, BUN 26 H, Creatinine 1.00, Estimated Creat Clear 93, Estimated GFR 74, Est GFR ( Amer) 90, Glucose 271 H, Calcium 9.2, Total Bilirubin 0.9, AST 39, ALT 25, Alkaline Phosphatase 79, Total Protein 7.3, Albumin 3.7, Globulin 3.6 H, Albumin/Globulin Ratio 1.0 L 07/03/20 11:32: POC Glucose 251 H 07/03/20 11:38: POC Glucose 501 H* 07/03/20 20:15: POC Glucose 204 H 07/03/20 20:40: Vancomycin Trough 17.1 H 07/04/20 05:18: POC Glucose 131 H 07/04/20 05:45: WBC 15.0 H D, RBC 4.53 L, Hgb 14.7, Hct 43.9, MCV 96.8 H, MCH 32.3 H, MCHC 33.4, RDW 13.1, Plt Count 245, MPV 8.2, Neut % (Auto) 91.2 H, Lymph % (Auto) 3.3 L, [place] % (Auto) 4.6, Eos % (Auto) 0.4, Baso % (Auto) 0.4, Neut # (Auto) 13.7 H, Lymph # (Auto) 0.5 L, [place] # (Auto) 0.7, Eos # (Auto) 0.1, Baso # (Auto) 0.1 07/04/20 05:45: Sodium 138, Potassium 3.8, Chloride 103, Carbon Dioxide 25, Anion Gap 13.8, BUN 25 H, Creatinine 1.00, Estimated Creat Clear 93, Estimated GFR 74, Est GFR ( Amer) 90, Glucose 150 H D, Calcium 9.3, Total Bilirubin 1.1, AST 38, ALT 19, Alkaline Phosphatase 94, Total Protein 7.3, Albumin 3.5, Globulin 3.8 H, Albumin/Globulin Ratio 0.9 L Vital Signs - 24 hr 07/03/20 11:39 07/03/20 12:00 07/03/20 15:24 Temperature 98.6 F 98.2 F Pulse Rate 70 Pulse Rate [Apical] 80 66 Respiratory Rate 24 22 Blood Pressure [Right Arm] 117/73 103/61 L 02 Sat by Pulse Oximetry 85 L 89 L 07/03/20 16:00 07/03/20 20:00 07/04/20 00:00 Temperature 98.1 F 98.3 F Pulse Rate 60 80 70 Pulse Rate [Apical] 72 87 Respiratory Rate 28 H 28 H Blood Pressure [Right Arm] 112/79 133/80 02 Sat by Pulse Oximetry 85 L 07/04/20 03:36 07/04/20 04:00 Temperature 98.6 F Pulse Rate 90 Pulse Rate [Apical] 90 Respiratory Rate 22 32 H Blood Pressure [Right Arm] 138/80 02 Sat by Pulse Oximetry I & O for Last 24 hours: Intake & Output 07/01/20 07/02/20 07/03/20 07/04/20 23:59 23:59 23:59 23:59 Intake Total 480 / 480 1680 / 1680 960 / 1390 430 / 430 Output Total 2765 / 2765 2400 / 2800 1500 / 2850 1350 / 1350 Balance -2285 / -2285 -720 / -1120 -540 / -1460 -920 / -920 Weight 206 lb 4 oz - Constitutional no acute distress - *Routine HEENT Exam Head: Present: normocephalic Eye: Present: EOMI ENT: Present: mucous membranes moist - *Routine Neck Exam Present: supple. Absent: lymphadenopathy - *Routine Respiratory Exam Present: crackles (few, mainly clear). Absent: wheezes - *Routine Cardiovascular Exam Present: RRR - *Routine Abdominal Exam Present: soft, normoactive bowel sounds. Absent: tenderness - *Routine Extremities Exam Absent: cyanosis, clubbing, edema - *Routine Skin Exam Present: warm. Absent: rash - *Routine Neurological Exam Present: alert, oriented X3 Assessment and Plan (1) Pneumonia due to COVID-19 virus Status: Acute Category: Medical Code(s): U07.1 - COVID-19; J12.82 - Pneumonia due to coronavirus disease 2019 (2) Respiratory failure with hypoxia Status: Acute
[2020-07-04 09:02] LABS: Lymphocytes % 2 % (10-50); Monocytes % 3 % (2-9); Neutrophils % 95 % (42-76); Platelet Estimate Normal; RBC Morphology Normal; Total Cells Counted 100
--- NOTE | 2020-07-04 09:28 | XR_ITS ---
PROCEDURE: XR CHEST PORTABLE CLINICAL HISTORY: PNM Follow-up pneumonia COMPARISON: CR XR CHEST PORTABLE from 06/27/[address] ANGIO CHEST from 06/28/2020 CR XR CHEST PORTABLE from 06/30/2020 CR XR CHEST PORTABLE from 07/01/2020 FINDINGS: There is cardiomegaly. There is diffuse bilateral pneumonia with some sparing in the right lung base. These findings appear somewhat worse compared to the previous exam. IMPRESSION: Worsening bilateral pneumonia Dictated by: Michele Sheth MD 07/04/2020 11:32 Michele Sheth MD in [place] 07/04/2020 11:32
--- NOTE | 2020-07-04 10:45 | HMH.PHACONS ---
- Pharmacy Consult Date: 07/04/20 Time: 10:45 Referring provider: DR. AMNE Reason for Consult:: VANCOMYCIN TROUGH LEVEL Allergies and ADEs:: Allergies Allergy/AdvReac Type Severity Reaction Status Date / Time ceftriaxone [From Rocephin] Allergy Mild Verified 05/24/20 09:28 Home Medications:: Home Medications Medication Instructions Recorded Confirmed Type metformin 1,000 mg tablet 1,000 mg PO BID 04/08/18 06/28/20 History pantoprazole 40 mg tablet,delayed 40 mg PO DAILY 04/08/18 06/28/20 History release tamsulosin 0.4 mg capsule 0.4 mg PO DAILY 04/08/18 06/28/20 History dapagliflozin 10 mg tablet 10 mg PO DAILY 30 Days #30 tab 01/14/19 06/28/20 History Clopidogrel Bisulfate [Plavix] 75 mg PO DAILY 06/27/20 06/28/20 History Losartan Potassium [Cozaar 50mg 50 mg PO DAILY 06/27/20 06/28/20 History Tablets] Metoprolol Succinate [Metoprolol 25 mg PO DAILY 06/27/20 06/27/20 History Succinate 25mg Tablet*] Aspirin [Aspirin 81mg chewable 81 mg PO DAILY 06/28/20 06/28/20 History tab] Azithromycin 250 mg PO DAILY 06/28/20 06/28/20 History Ketorolac Tromethamine 1 drp EYE-RIGHT BID 06/28/20 06/28/20 History Prednisolone Acetate/Pf 1 drop OP BID 06/28/20 06/28/20 History [Prednisolone Acet 1% Eye Drop] Atorvastatin Calcium [Lipitor 40mg 40 mg PO DAILY 06/29/20 06/29/20 History Tab] Multivitamin 1 each PO DAILY 06/29/20 06/29/20 History Height: 1.88 m Weight: 93.553 kg Laboratory Results:: Laboratory Results - last 24 hr 07/03/20 11:15: WBC 11.8 H, RBC 4.85, Hgb 15.2, Hct 45.9, MCV 94.7 H, MCH 31.4 H, MCHC 33.1, RDW 13.0, Plt Count 221, MPV 7.6, Neut % (Auto) 86.0 H, Lymph % (Auto) 5.1 L, [place] % (Auto) 7.9, Eos % (Auto) 0.4, Baso % (Auto) 0.5, Neut # (Auto) 10.1 H, Lymph # (Auto) 0.6 L, [place] # (Auto) 0.9, Eos # (Auto) 0.1, Baso # (Auto) 0.1, Total Counted 100, Neutrophils % (Manual) 82 H, Lymphocytes % (Manual) 8 L, Monocytes % (Manual) 10 H, Platelet Estimate Normal, RBC Morphology Normal 07/03/20 11:15: Sodium 135 L, Potassium 4.0, Chloride 101, Carbon Dioxide 26, Anion Gap 12.0, BUN 26 H, Creatinine 1.00, Estimated Creat Clear 93, Estimated GFR 74, Est GFR ( Amer) 90, Glucose 271 H, Calcium 9.2, Total Bilirubin 0.9, AST 39, ALT 25, Alkaline Phosphatase 79, Total Protein 7.3, Albumin 3.7, Globulin 3.6 H, Albumin/Globulin Ratio 1.0 L 07/03/20 11:32: POC Glucose 251 H 07/03/20 11:38: POC Glucose 501 H* 07/03/20 20:15: POC Glucose 204 H 07/03/20 20:40: Vancomycin Trough 17.1 H 07/04/20 05:18: POC Glucose 131 H 07/04/20 05:45: WBC 15.0 H D, RBC 4.53 L, Hgb 14.7, Hct 43.9, MCV 96.8 H, MCH 32.3 H, MCHC 33.4, RDW 13.1, Plt Count 245, MPV 8.2, Neut % (Auto) 91.2 H, Lymph % (Auto) 3.3 L, [place] % (Auto) 4.6, Eos % (Auto) 0.4, Baso % (Auto) 0.4, Neut # (Auto) 13.7 H, Lymph # (Auto) 0.5 L, [place] # (Auto) 0.7, Eos # (Auto) 0.1, Baso # (Auto) 0.1, Total Counted 100, Neutrophils % (Manual) 95 H, Lymphocytes % (Manual) 2 L, Monocytes % (Manual) 3, Platelet Estimate Normal, RBC Morphology Normal 07/04/20 05:45: Sodium 138, Potassium 3.8, Chloride 103, Carbon Dioxide 25, Anion Gap 13.8, BUN 25 H, Creatinine 1.00, Estimated Creat Clear 93, Estimated GFR 74, Est GFR ( Amer) 90, Glucose 150 H D, Calcium 9.3, Total Bilirubin 1.1, AST 38, ALT 19, Alkaline Phosphatase 94, Total Protein 7.3, Albumin 3.5, Globulin 3.8 H, Albumin/Globulin Ratio 0.9 L Medical History: Reports:: Coronary Artery Disease (Stent placement March 2018.), Diabetes Mellitus Type 2, Gastroesophageal Reflux Disease(GERD), Hyperlipidemia, Hypertension Denies:: Cancer, Diabetes Mellitus Type 1, MRSA, Pulmonary Embolism Assessment and Plan (1) Pneumonia due to COVID-19 virus Status: Acute Category: Medical Code(s): U07.1 - COVID-19; J12.82 - Pneumonia due to coronavirus disease 2018 (2) Respiratory failure with hypoxia Status: Acute Qualifiers: Chronicity: acute Qualified Code(s): J96.01 - Acute respiratory failure with hypoxia
[2020-07-04 12:09] LABS: POC Glucose,Bedside 163 (70-110)
--- NOTE | 2020-07-04 12:21 | P.PN_ITS ---
Internal Medicine - PN: Subj *Date: 07/04/20 *Time: 12:21 Exam Vital signs and Labs for Last 24 Hours: Temp Pulse Resp BP Pulse Ox 97.7 F 80 24 126/72 89 L 07/04/20 11:35 07/04/20 12:00 07/04/20 11:35 07/04/20 11:35 07/04/20 11:35 Laboratory Results - last 24 hr 07/03/20 11:15: Total Counted 100, Neutrophils % (Manual) 82 H, Lymphocytes % (Manual) 8 L, Monocytes % (Manual) 10 H, Platelet Estimate Normal, RBC Morphology Normal 07/03/20 20:15: POC Glucose 204 H 07/03/20 20:40: Vancomycin Trough 17.1 H 07/04/20 05:18: POC Glucose 131 H 07/04/20 05:45: WBC 15.0 H D, RBC 4.53 L, Hgb 14.7, Hct 43.9, MCV 96.8 H, MCH 32.3 H, MCHC 33.4, RDW 13.1, Plt Count 245, MPV 8.2, Neut % (Auto) 91.2 H, Lymph % (Auto) 3.3 L, [place] % (Auto) 4.6, Eos % (Auto) 0.4, Baso % (Auto) 0.4, Neut # (Auto) 13.7 H, Lymph # (Auto) 0.5 L, [place] # (Auto) 0.7, Eos # (Auto) 0.1, Baso # (Auto) 0.1, Total Counted 100, Neutrophils % (Manual) 95 H, Lymphocytes % (Manual) 2 L, Monocytes % (Manual) 3, Platelet Estimate Normal, RBC Morphology Normal 07/04/20 05:45: Sodium 138, Potassium 3.8, Chloride 103, Carbon Dioxide 25, Anion Gap 13.8, BUN 25 H, Creatinine 1.00, Estimated Creat Clear 93, Estimated GFR 74, Est GFR ( Amer) 90, Glucose 150 H D, Calcium 9.3, Total Bilirubin 1.1, AST 38, ALT 19, Alkaline Phosphatase 94, Total Protein 7.3, Albumin 3.5, Globulin 3.8 H, Albumin/Globulin Ratio 0.9 L 07/04/20 11:45: POC Glucose 163 H I & O for Last 24 hours: Intake & Output 07/01/20 07/02/20 07/03/20 07/04/20 23:59 23:59 23:59 23:59 Intake Total 480 / 480 1680 / 1680 960 / 1390 430 / 430 Output Total 2765 / 2765 2400 / 2800 1500 / 2850 1350 / 1350 Balance -2285 / -2285 -720 / -1120 -540 / -1460 -920 / -920 Weight 93.553 kg Microbiology Reports for the Last 24 Hours: Microbiology 06/29/20 14:51 Nose - Nasal MRSA Culture - Final Negative Assessment and Plan (1) Pneumonia due to COVID-19 virus Status: Acute Category: Medical Code(s): U07.1 - COVID-19; J12.82 - Pneumonia due to coronavirus disease 2019 (2) Respiratory failure with hypoxia Status: Acute Qualifiers: Chronicity: acute Qualified Code(s): J96.01 - Acute respiratory failure with hypoxia Category: Medical Code(s): J96.91 - Respiratory failure, unspecified with hypoxia (3) CAD (coronary artery disease), [place] coronary artery Status: Chronic Qualifiers: [place] vs. transplanted heart: [place] heart Associated angina: without angina Qualified Code(s): I25.10 - Atherosclerotic heart disease of [place] coronary artery without angina pectoris Category: Medical Code(s): I25.10 - Atherosclerotic heart disease of [place] coronary artery without angina pectoris (4) DM2 (diabetes mellitus, type 2) Status: Chronic Qualifiers: Diabetes mellitus manager long term care insulin use: without manager long term care use Diabetes mellitus complication status: without complication Qualified Code(s): E11.9 - Type 2 diabetes mellitus without complications Category: Medical Code(s): E11.9 - Type 2 diabetes mellitus without complications The patient's infection will respond to the chosen ABx?: Yes Is the patient receiving the right drug, dose, and route?: Yes Could a more targeted ABx be ordered?: No
--- NOTE | 2020-07-04 12:41 | HMH.PULMPN ---
Internal Medicine - PN: Subj *Date: 07/04/20 *Time: 12:41 Interval history: Patient respiratory status remained stable and critical Exam - Constitutional Comment:: Patient in moderate respiratory distress. - HENMT Exam HENMT: normocephalic, atraumatic - Eye Exam Eyes:: eyelids normal - Neck Exam Neck:: thyroid normal, no lymphadenopathy - Respiratory Exam Comments: Bilateral coarse breath sounds unchanged from yesterday. - GI Exam GI:: no hepatosplenomegaly, normoactive bowel sounds - Skin Exam Skin: warm, no rash - Neurological Exam Neurological: alert, awake - Extremities Exam Extremities: no cyanosis, no clubbing, edema - Psychiatric Exam Psychiatric: normal affect Assessment and Plan (1) Pneumonia due to COVID-19 virus Status: Acute Category: Medical Code(s): U07.1 - COVID-19; J12.82 - Pneumonia due to coronavirus disease 2019 (2) Respiratory failure with hypoxia Status: Acute Qualifiers: Chronicity: acute Qualified Code(s): J96.01 - Acute respiratory failure with hypoxia Category: Medical Code(s): J96.91 - Respiratory failure, unspecified with hypoxia (3) CAD (coronary artery disease), [place] coronary artery Status: Chronic Qualifiers: [place] vs. transplanted heart: [place] heart Associated angina: without angina Qualified Code(s): I25.10 - Atherosclerotic heart disease of [place] coronary artery without angina pectoris Category: Medical Code(s): I25.10 - Atherosclerotic heart disease of [place] coronary artery without angina pectoris (4) DM2 (diabetes mellitus, type 2) Status: Chronic Qualifiers: Diabetes mellitus intermediate manager insulin use: without intermediate manager use Diabetes mellitus complication status: without complication Qualified Code(s): E11.9 - Type 2 diabetes mellitus without complications Category: Medical Code(s): E11.9 - Type 2 diabetes mellitus without complications - Assessment and plan all Dx Assessment and Plan for all problems:: #COVID-19 pneumonia: #Acute hypoxic respiratory failure: 69-year-old no prior respiratory complaints never smoker with recent diagnosis of COVID-19 present with worsening respiratory failure cough and productive phlegm. Chest x-ray showed bilateral pulmonary infiltrates. CT showed bilateral diffuse pulmonary infiltrates. No evidence of acute pulmonary embolism. Patient respiratory rate is gradually worsening throughout his hospital course currently on BiPAP to maintain saturations 90% and above. Patient not tolerating high flow secondary to hypoxia. Interval update: Patient respiratory status remained relatively stable today, patient saturating 88 to 92% on BiPAP. Patient today change his CODE STATUS to full code and he want to be intubated and resuscitated if things were to worsen. We will closely monitor the patient and give her small dose of diuretics. Patient respiratory status remained critical and closely monitor diffuse respiratory status worsens any further we will proceed with mechanical ventilatory support. Leukocytosis slightly worsened from yesterday Plan: - Awake proning at least 8 hours/day as tolerated - Oxygen supplementation with BiPAP and high flow to maintain saturation of 88 and above - Lasix 40mg IV once - Discontinue vancomycin - Continue Zosyn x 7 days - Continue dexamethasone and remdesivir for COVID-19 pneumonia - DuoNebs every 6 hours scheduled - Continue PPI and DVT prophylaxis Total critical care time spent on this patient is 35 minutes managing acute hypoxic respiratory failure needing mechanical ventilation. This time spent include reviewing test results including interpreting chest x-rays, labs and arterial blood gas, optimizing the ventilator settings,formulating plan of care, discussing the plan of care with the team and the nursing staff.
[2020-07-04 17:16] LABS: POC Glucose,Bedside 219 (70-110)
--- NOTE | 2020-07-04 18:41 | PC.NURSE ---
Pt is alert and oriented x4. Lungs diminshed t/o. He remains on bipap unless eating in which he is on vapotherm 40L 100% fio2. O2 sats drop to low-mid 70's while on vapotherm. O2 sats are in the upper 80's to low 90's on bipap. He has utilized a urinal at the bedside. Urine is clear and light in color. He has had approx 1600 mls out thus far. Appetite has been poor eating very little of meals. He is currently resting in bed watching tv. No questions or concerns at this time. Will report to oncoming nurse.
[2020-07-04 21:55] LABS: POC Glucose,Bedside 191 (70-110)
[2020-07-05] VITALS (30 sets, daily range): BP systolic 79–186; BP diastolic 50–116; PULSE 63–135; RESP 17–35; TEMP 36.3–37.4; O2SAT 86–96
[2020-07-05 06:48] LABS: POC Glucose,Bedside 134 (70-110)
[2020-07-05 07:34] LABS: Basophils # 0.1 K/mm3 (0-0.2); Basophils % 0.4 % (0.1-2.0); Eosinophils # 0.1 K/mm3 (0.0-0.4); Eosinophils % 0.3 % (0.1-12.0); Hematocrit 44.9 % (42.0-52.0); Hemoglobin 15.4 g/dL (14.1-18.0); Lymphocytes # 0.5 K/mm3 (0.7-4.5); Mean Corpuscular HGB Conc 34.2 g/dL (31.8-35.4); Mean Corpuscular Hemoglobin 31.7 pg (27.0-31.2); Mean Corpuscular Volume 92.5 fl (80-94); Mean Platelet Volume 8.5 fl (7.4-10.4); Monocytes # 0.6 K/mm3 (0.1-1.0); Monocytes % 3.9 % (1.7-9.3); Neutrophils # 14.7 K/mm3 (1.8-7.8); Neutrophils % 92.3 % (37.0-80.0); Platelet Count 275 K/mm3 (142-424); Red Blood Count 4.85 M/mm3 (4.60-6.20); Red Cell Distribution Width 12.8 % (11.5-17.5); White Blood Count 15.9 K/mm3 (4.8-10.8)
[2020-07-05 07:39] LABS: Alanine Aminotransferase 18 U/L (12-78); Albumin Level 3.4 g/dl (3.5-5.0); Albumin/Globulin Ratio 0.9 (1.1-1.8); Alkaline Phosphatase 120 U/L (38-126); Aspartate Amino Transferase 32 U/L (17-59); Bilirubin,Total 1.1 mg/dl (0.2-1.3); Blood Urea Nitrogen 38 mg/dl (9-20); Calcium 9.3 mg/dl (8.4-10.2); Carbon Dioxide 29 mmol/L (22.0-30.0); Chloride 101 mmol/L (98-107); Creatinine Clearance Estimated 85 mL/min (50-200); Estimated Glomerular Filt Rate 67 ml/min (>60); GFR (African American) 81 ML/MIN (>60); Globulin 3.8 g/dL (1.3-3.2); Glucose 152 mg/dl (74-100); Sodium 138 mmol/L (136-145); Total Protein,Serum 7.2 g/dl (6.3-8.2)
[2020-07-05 08:10] LABS: MANUAL DIFFERENTIAL MANUAL DIFFERENTIAL (MANUAL DIFF)
--- NOTE | 2020-07-05 08:34 | PC.NURSE ---
Pt is A&Ox4 but has been very fatigued t/o shift and c/o of being SOA. On Bipap 100% fi02 maintains pts sats 88-91%. Pt very quickly desats to upper 60s when bipap removed and changed to Vapotherm. Oral has been given multiple times this shift, pt does not like the oral care kit moisturizer. Diminished and wheezing noted on auscultation. NSR on tele. Lovenox for VTE. Pt has had poor food intake d/t not feeling like eating . Pt has drank water well. Urinary output was 1,425ml this shift.
--- NOTE | 2020-07-05 08:46 | HMH.ACPN2 ---
Internal Medicine - PN: Subj *Date: 07/05/20 *Time: 08:46 Interval history: Patient feels more short of breath this morning. Unable to eat breakfast as he we was unable to tolerate Vapotherm, O2 sats dropped into the 60's per nursing. Exam Vital signs and Labs for Last 24 Hours: Temp Pulse Resp BP Pulse Ox 99.4 F 74 24 115/67 88 L 07/05/20 08:00 07/05/20 08:00 07/05/20 08:00 07/05/20 08:00 07/05/20 08:00 Laboratory Results - last 24 hr 07/04/20 05:45: Total Counted 100, Neutrophils % (Manual) 95 H, Lymphocytes % (Manual) 2 L, Monocytes % (Manual) 3, Platelet Estimate Normal, RBC Morphology Normal 07/04/20 11:45: POC Glucose 163 H 07/04/20 16:55: POC Glucose 219 H 07/04/20 21:42: POC Glucose 191 H 07/05/20 06:05: WBC 15.9 H, RBC 4.85, Hgb 15.4, Hct 44.9, MCV 92.5, MCH 31.7 H, MCHC 34.2, RDW 12.8, Plt Count 275, MPV 8.5, Neut % (Auto) 92.3 H, Lymph % (Auto) 3.0 L, [place] % (Auto) 3.9, Eos % (Auto) 0.3, Baso % (Auto) 0.4, Neut # (Auto) 14.7 H, Lymph # (Auto) 0.5 L, [place] # (Auto) 0.6, Eos # (Auto) 0.1, Baso # (Auto) 0.1 07/05/20 06:05: Sodium 138, Potassium 4.0, Chloride 101, Carbon Dioxide 29, Anion Gap 12.0, BUN 38 H D, Creatinine 1.10, Estimated Creat Clear 85, Estimated GFR 67, Est GFR ( Amer) 81, Glucose 152 H, Calcium 9.3, Total Bilirubin 1.1, AST 32, ALT 18, Alkaline Phosphatase 120, Total Protein 7.2, Albumin 3.4 L, Globulin 3.8 H, Albumin/Globulin Ratio 0.9 L 07/05/20 06:08: POC Glucose 134 H Vital Signs - 24 hr 07/04/20 11:35 07/04/20 12:00 07/04/20 16:00 Temperature 97.7 F 97.7 F Pulse Rate 80 80 Pulse Rate [Apical] 71 75 Respiratory Rate 24 20 Blood Pressure [Right Arm] 126/72 103/63 L 02 Sat by Pulse Oximetry 89 L 92 L 07/04/20 20:00 07/04/20 21:18 07/05/20 00:00 Temperature 97.6 F 97.9 F Pulse Rate 80 70 Pulse Rate [Apical] 80 Respiratory Rate 24 28 H 28 H Blood Pressure [Right Arm] 109/64 L 109/69 L 02 Sat by Pulse Oximetry 91 L 91 L 07/05/20 00:56 07/05/20 04:00 07/05/20 05:58 Temperature Pulse Rate 80 Pulse Rate [Apical] 63 Respiratory Rate 32 H 30 H 34 H Blood Pressure [Right Arm] 116/66 02 Sat by Pulse Oximetry 86 L 07/05/20 08:00 Temperature 99.4 F Pulse Rate Pulse Rate [Apical] 74 Respiratory Rate 24 Blood Pressure [Right Arm] 115/67 02 Sat by Pulse Oximetry 88 L I & O for Last 24 hours: Intake & Output 07/02/20 07/03/20 07/04/20 07/05/20 23:59 23:59 23:59 23:59 Intake Total 1680 / 1680 960 / 1390 1130 / 1380 750 / 750 Output Total 2400 / 2800 1500 / 2850 3425 / 3825 1050 / 1050 Balance -720 / -1120 -540 / -1460 -2295 / -2445 -300 / -300 Weight 206 lb 4 oz Microbiology Reports for the Last 24 Hours: Microbiology 06/29/20 14:51 Nose - Nasal MRSA Culture - Final Negative - Constitutional mild distress (BiPAP in use) - *Routine HEENT Exam Head: Present: normocephalic Eye: Present: EOMI, PERRL ENT: Present: mucous membranes moist - *Routine Neck Exam Present: supple. Absent: lymphadenopathy - *Routine Respiratory Exam Present: rhonchi (few bilateral). Absent: wheezes - *Routine Cardiovascular Exam Present: RRR - *Routine Abdominal Exam Present: soft, normoactive bowel sounds. Absent: tenderness - *Routine Extremities Exam Absent: cyanosis, clubbing, edema - *Routine Skin Exam Present: warm. Absent: rash - *Routine Neurological Exam Present: alert Assessment and Plan (1) Pneumonia due to COVID-19 virus Status: Acute Category: Medical Code(s): U07.1 - COVID-19; J12.82 - Pneumonia due to coronavirus disease 2019 (2) Respiratory failure with hypoxia Status: Acute Qualifiers: Chronicity: acute Qualified Code(s): J96.01 - Acute respiratory failure with hypoxia Category: Medical Code(s): J96.91 - Respiratory failure, unspecified with hypoxia (3) CAD (coronary artery disease), [place] coronary artery Status: Chronic Qualifiers:
[2020-07-05 09:19] LABS: Lymphocytes % 4 % (10-50); Monocytes % 4 % (2-9); Neutrophils % 92 % (42-76); Platelet Estimate Normal; RBC Morphology Normal; Total Cells Counted 100
--- NOTE | 2020-07-05 11:32 | XR_ITS ---
PROCEDURE: XR CHEST PORTABLE CLINICAL HISTORY: ET tube placement and OG tube placement COMPARISON: CT CT ANGIO CHEST from 06/28/2020 CR XR CHEST PORTABLE from 06/30/2020 CR XR CHEST PORTABLE from 07/01/2020 CR XR CHEST PORTABLE from 07/04/2020 FINDINGS: Endotracheal tube tip is 2.6 cm above the pj in good position. Orogastric tube tip is in the region the cardia of the stomach in good position. There is diffuse bilateral pneumonia once again noted not significantly changed. Normal heart size . IMPRESSION: Endotracheal tube and nasogastric tube in good position with diffuse bilateral pneumonia Dictated by: Michele Sheth MD 07/05/2020 14:04 Michele Sheth MD in [place] 07/05/2020 14:04
[2020-07-05 12:22] LABS: ABG Base Excess -3.1 mmol/L (-2.4-2.3); ABG HCO3 26.3 mmhg (22.0-26.0); ABG Oxygen Saturation 99 % (90-100); ABG PO2 285.6 mmhg (80-100); ABG TCO2 28.8 mmhg (23-27); Oxygen 100 %
[2020-07-05 12:23] LABS: ABG PH 7.12 mmol/L (7.35-7.45); PEEP 16; Tidal Volume 18; Vent Rate 440
[2020-07-05 12:24] LABS: ABG PCO2 82.7 mmhg (35.0-45.0)
--- NOTE | 2020-07-05 12:39 | P.PCN_ITS ---
[facility] Procedure Note Procedure Note:: Name of the procedure: endotracheal intubation Reason for intubation: Acute hypoxic respiratory failure A time out was performed. My hands were washed immediately prior to the procedure. The patient was placed on a playground monitor including continuous pulse oximetry. Rapid Sequence Intubation was conducted. The patient received 50 mg of Etomidate for induction and 100 mg of Rocoronium for adequate paralysis. Cricoid pressure was maintained from time induction agent was given to time of cuff balloon inflation. Using a Size 4 mac laryngoscope and a size 7.5 endotracheal tube with stylet, the patient was intubated on the first attempt. The stylet was removed and cuff balloon was inflated. Appropriate endotracheal tube position was confirmed by direct visualization of vocal cord passage, CO2 colometric indicator and bilateral symmetric breath sounds. The tube was secured at 26 cm at the lips. Post intubation chest x-ray is pending at this time. Patient tolerated the procedure well. Estimated blood loss minimal
--- NOTE | 2020-07-05 12:39 | HMH.PULMPN ---
Internal Medicine - PN: Subj *Date: 07/05/20 *Time: 12:39 Interval history: Patient oxygenation status worsened since yesterday, appeared to be in severe respiratory distress this morning. Patient stated that he could not breathe anymore with the BiPAP Exam - Constitutional Comment:: Patient in severe respiratory distress. - HENMT Exam HENMT: normocephalic, atraumatic - Eye Exam Eyes:: eyelids normal, normal conjunctiva - Neck Exam Neck:: thyroid normal, no lymphadenopathy - Respiratory Exam Comments: Bilateral coarse breath sounds slightly worsened from yesterday. Patient appeared to be in severe respiratory distress today concerning for impending respiratory failure. - Cardiovascular Exam Cardiac:: S1, S2 - GI Exam GI:: soft, no hepatosplenomegaly - Skin Exam Skin: warm, no rash - Neurological Exam Neurological: alert, awake - Extremities Exam Extremities: no cyanosis, no clubbing, edema Assessment and Plan (1) Pneumonia due to COVID-19 virus Status: Acute Category: Medical Code(s): U07.1 - COVID-19; J12.82 - Pneumonia due to coronavirus disease 2019 (2) Respiratory failure with hypoxia Status: Acute Qualifiers: Chronicity: acute Qualified Code(s): J96.01 - Acute respiratory failure with hypoxia Category: Medical Code(s): J96.91 - Respiratory failure, unspecified with hypoxia (3) CAD (coronary artery disease), [place] coronary artery Status: Chronic Qualifiers: [place] vs. transplanted heart: [place] heart Associated angina: without angina Qualified Code(s): I25.10 - Atherosclerotic heart disease of [place] coronary artery without angina pectoris Category: Medical Code(s): I25.10 - Atherosclerotic heart disease of [place] coronary artery without angina pectoris (4) DM2 (diabetes mellitus, type 2) Status: Chronic Qualifiers: Diabetes mellitus mcc insulin use: without mcc use Diabetes mellitus complication status: without complication Qualified Code(s): E11.9 - Type 2 diabetes mellitus without complications Category: Medical Code(s): E11.9 - Type 2 diabetes mellitus without complications - Assessment and plan all Dx Assessment and Plan for all problems:: #COVID-19 pneumonia: #Acute hypoxic respiratory failure requiring mechanical ventilation: 69-year-old no prior respiratory complaints never smoker with recent diagnosis of COVID-19 present with worsening respiratory failure cough and productive phlegm. Chest x-ray showed bilateral pulmonary infiltrates. CT showed bilateral diffuse pulmonary infiltrates. No evidence of acute pulmonary embolism. Patient respiratory rate is gradually worsening throughout his hospital course currently on BiPAP to maintain saturations 90% and above. Patient initially was a DNR/DNI however changed status to full code. Patient initially started on vancomycin, discontinued after negative cultures Interval update: Patient respiratory status continued to remain critical and patient appeared to be in severe respiratory distress today concerning for impending respiratory failure. After discussion with the patient we have proceeded with intubation and mechanical ventilation for further respiratory support. Hemodynamically stable. Leukocytosis relatively stable now at 15.9. Renal function stable. Chest x-ray post intubation, relatively unchanged pulmonary infiltrates, ET tube in position. Plan: -Continue mechanical ventilation with lung protective strategy my patient currently on 14 of PEEP for 440 of tidal volume 100% FiO2 with a rate of 18, will follow with blood gas and will change ventilator settings accordingly - Follow with PAL cultures - Continue Zosyn x 7 days - Continue dexamethasone and remdesivir for COVID-19 pneumonia - DuoNebs every 6 hours scheduled - Continue PPI and DVT prophylaxis Total critical care time spent on this patient is 65 minutes managing acute hypoxic respiratory failure needing mechan
[2020-07-05 12:47] LABS: POC Glucose,Bedside 196 (70-110)
--- NOTE | 2020-07-05 13:45 | DIET.NUTRFU ---
Addendum entered by Chela Mccabe 07/06/20 14:54: Tolerating initiation tube feeds. Weight up 5#. BG moderate-high- ~220. No changes to bolus feeding regimen or fluids stated below and in TF order. Continuing to monitor and alter nutritional care plan as indicated. Addendum entered by Chela Mccabe 07/05/20 18:43: Notified of kangaroo pump shortage, bolus feedings are appropriate for pt. Recommend bolus feedings of pulmocare 1.5 of 255ml q 4hr, water flush with 230ml q 4hr to meet additional fluid needs and for irrigation. Addendum entered by Nabila Rosales RDN, YAKOV 07/05/20 15:55: Nutrition consult to initiate TF has been received. Order entered for pt to begin Pulmocare at 20mL/hr and increase to goal rate of 67mL/hr with additional 230mL/ free water flushes every 4 hours. Will closely monitor TF acceptance and fluid needs. Original Note: Pt intubated, recommend initiating enteral nutrition upon MD order. Upon TF initiation order, recommend initiating continuous tube feeding regimen of Pulmocare 1.5 at 20ml/hr and advance by 10ml/he q 8hr as tolerated to goal rate of 67ml/hr. Pt not currently receiving IVF, recommend water flushes of 230ml q 4hr to meet additional fluid needs. This regimen provides 2300kcal, 96g protein, 162g cho, 143g fat, and 1203ml free water. Will monitor tolerance, BG, and IVF to adjust as indicated.
[2020-07-05 13:53] LABS: Microscopic, Urine URINE MICROSCOPIC (MICROSCOPIC)
[2020-07-05 13:54] LABS: Appearance,Urine CLEAR (Clear); Bilirubin,Urine Negative (Negative); Blood, Urine Negative (Negative); Color,Urine YELLOW (Yellow); Glucose,Urine (UA) 2+ (Negative); Ketones,Urine 1+ (Negative); Leukocyte Esterase,Urine Negative (Negative); Nitrate,Urine Negative (Negative); PH,Urine 5.5 (5.0-8.5); Protein,Urine TRACE (Negative); Specific Gravity, Urine 1.025 (1.005-1.030); Urobilinogen,Urine 0.2 EU/dl (0.2)
[2020-07-05 14:06] LABS: RBC,Urine Occasional #/hpf (0-3)
[2020-07-05 15:49] LABS: POC Glucose,Bedside 230 (70-110)
--- NOTE | 2020-07-05 15:51 | PC.NURSE ---
Spoke w/ Dr. Chance @ this time, okay to initiate tube feeds per dietitian recommendations.
--- NOTE | 2020-07-05 16:17 | PC.NURSE ---
Update pt's on current status and plan of care @ this time.
[2020-07-05 17:01] LABS: ABG Base Excess -3.9 mmol/L (-2.4-2.3); ABG HCO3 22.5 mmhg (22.0-26.0); ABG Oxygen Saturation 99 % (90-100); ABG PCO2 46.9 mmhg (35.0-45.0); ABG PO2 160.4 mmhg (80-100); ABG TCO2 23.9 mmhg (23-27)
[2020-07-05 17:02] LABS: Oxygen 100 %; PEEP 12; Tidal Volume 480; Vent Rate 24
[2020-07-05 17:03] LABS: Allen's Test Patient Unable; Source Right Radial
--- NOTE | 2020-07-05 18:20 | PC.NURSE ---
Kangaroo pump not available. 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 cont. Left message for call back.
[2020-07-05 20:43] LABS: POC Glucose,Bedside 204 (70-110)
--- NOTE | 2020-07-05 20:50 | PC.NURSE ---
Dr. Myles @ bedside. HAMILTON Monae,RT S Polina,RT and Anaya LariosRT at bedside as well. Pt gives verbal consent for intubation. Pt currently on BIPAP @ 100%, sat 91%. Bed raised and HOB lowered. 1107 - Dr. Myles pushed 100 mg Griffin and 50 mg of Etomidate IV. Pt bagged, sat dropping to mid 70's and increasing to 88%. 1110 - Mac blade used by MD w/ cric pressure applied by RT. #7.[address] secured 26 @ lip, right side. Pt continued to be bagged for 1-2 min until sat mid 90/s. Pt placed on vent w/ settings per Dr. Myles AC, 440, 18, 100%, 16 Versed and Fentanyl gtt started per Dr. Myles. 1115 - 18 FR OGT inserted and secured @ 65 cm @ lip. 1122 - Rad called for stat CXR to confirm placement. Rectal temp obtained as well as manual BP's bilat (see one hour post intubation). CRE swab obtained per protocol. 1140 - 16 Fr Goncalves cath inserted using sterile technique, urometer in place. Urine noted to be clear and yellow, specimen obtained per protocol and sent to lab. 1200 - Pt's BP continues to be elevated, HR increased and sustaining 120's 130's. called and states he will place orders. IV lopressor given per AUG. 1230 - Dr. Myles called about pt's post intubation ABG states to increase TV to 480, Rate to 24 and Peep to 12. RT Neign notified of this for change. 1400 - Pt's BP trending down, systolic low 80's. notified of this, states to given a 500 cc bolus of NS. Orders RB+V, carried out. 1500 - Minimal response to 500 cc bolus, SBP still in mid 80's. notified of this and states to start levophed gtt @ 8 mcg, titrate to SBP >90. Levophed gtt started and. Gtt remained @ 8 mcg remainder of shift. 1641 - Dr. Myles called unit and orders for ABG to be drawn, MD aware of results and states to make no changes to vent settings @ this time. Pt has been resting comfortably. Vent remains on AC mode w/ noted settings above. Turned and repositioned Q2H. Oral care provided, minimal secretions noted. Goncalves cath to drain at bedside w/ adequate UOP this shift. No BM. OGT remains clamped, bolus feeds have been ordered per medical asst d/t not having available kangaroom pump @ this time. Bed safety in place. Report given to Deni Campuzano RN.
--- NOTE | 2020-07-05 21:26 | PC.NURSE ---
He continues in contact and airborne precautions. Vent settings are as follows: AC mode, TV 480, PEEP 12, R 24, FiO2 100%. HOB elevated. Ambu bag at bedside. LBKA. Non-skid in place on right foot. He is voiding per f/c. Urine is yellow, clear. NSR on telemetry. Turned and repositioned q 2 hours. Oral care q 2 hours.
[2020-07-06] VITALS (33 sets, daily range): BP systolic 84–139; BP diastolic 49–84; PULSE 74–144; RESP 20–35; TEMP 37–39.3; O2SAT 92–97; BMI 25.5
--- NOTE | 2020-07-06 05:00 | XR_ITS ---
PROCEDURE: XR CHEST PORTABLE 0506 hours CLINICAL HISTORY: Pt intubated Covid19 pneumonia COMPARISON: CT CT ANGIO CHEST from 06/28/2020 CR XR CHEST PORTABLE from 07/01/2020 CR XR CHEST PORTABLE from 07/04/2020 CR XR CHEST PORTABLE from 07/05/2020 FINDINGS: Endotracheal tube tip is in good position at the T4-T5 level 5.5 cm above the pj. Nasogastric tube tip is not visible on the film but is below the GE junction. Diffuse bilateral airspace disease once again noted consistent with Covid19 pneumonia not significantly changed. No evidence of pneumothorax No acute bony abnormalities. IMPRESSION: Endotracheal tube and nasogastric tube in good position with no change in the diffuse bilateral pneumonia Dictated by: Michele Sheth MD 07/06/2020 06:52 iMchele Sheth MD in [facility] 07/06/2020 06:52
--- NOTE | 2020-07-06 06:00 | PC.NURSE ---
He is febrile. Covers removed previously and ice packs attempted at this time.
[2020-07-06 06:02] LABS: ABG Base Excess -2.5 mmol/L (-2.4-2.3); ABG HCO3 23.5 mmhg (22.0-26.0); ABG PCO2 45.7 mmhg (35.0-45.0); ABG PH 7.33 mmol/L (7.35-7.45); ABG PO2 259.5 mmhg (80-100); ABG TCO2 24.9 mmhg (23-27)
[2020-07-06 06:04] LABS: Allen's Test Patient Unable; Oxygen 100 %; PEEP 12; Source Left Radial; Tidal Volume 480; Vent Rate 24
[2020-07-06 06:05] LABS: POC Glucose,Bedside 175 (70-110)
[2020-07-06 06:23] LABS: Basophils % 0.2 % (0.1-2.0); Eosinophils % 0.1 % (0.1-12.0); Hematocrit 45.5 % (42.0-52.0); Lymphocytes # 0.4 K/mm3 (0.7-4.5); Lymphocytes % 2.2 % (10-50); Mean Corpuscular Hemoglobin 31.2 pg (27.0-31.2); Mean Corpuscular Volume 94.5 fl (80-94); Mean Platelet Volume 7.5 fl (7.4-10.4); Monocytes # 1.2 K/mm3 (0.1-1.0); Monocytes % 5.7 % (1.7-9.3); Neutrophils # 18.6 K/mm3 (1.8-7.8); Neutrophils % 91.8 % (37.0-80.0); Platelet Count 289 K/mm3 (142-424); Red Blood Count 4.81 M/mm3 (4.60-6.20); White Blood Count 20.3 K/mm3 (4.8-10.8)
--- NOTE | 2020-07-06 06:24 | PC.NURSE ---
Pt noted to be tachycardic in the 120s-130s with occasional PVCs after breathing tx.
[2020-07-06 06:35] LABS: Alanine Aminotransferase 17 U/L (12-78); Albumin Level 3.3 g/dl (3.5-5.0); Albumin/Globulin Ratio 0.9 (1.1-1.8); Alkaline Phosphatase 128 U/L (38-126); Anion Gap 14.4 mEq/L (5-15); Aspartate Amino Transferase 28 U/L (17-59); Bilirubin,Total 0.7 mg/dl (0.2-1.3); Blood Urea Nitrogen 52 mg/dl (9-20); Carbon Dioxide 25 mmol/L (22.0-30.0); Chloride 107 mmol/L (98-107); Creatinine Clearance Estimated 80 mL/min (50-200); Estimated Glomerular Filt Rate 67 ml/min (>60); GFR (African American) 81 ML/MIN (>60); Globulin 3.6 g/dL (1.3-3.2); Glucose 207 mg/dl (74-100); Potassium 4.4 mmoL/L (3.5-5.1); Sodium 142 mmol/L (136-145); Total Protein,Serum 6.9 g/dl (6.3-8.2)
[2020-07-06 06:41] LABS: MANUAL DIFFERENTIAL MANUAL DIFFERENTIAL (MANUAL DIFF)
--- NOTE | 2020-07-06 06:59 | PC.NURSE ---
Levophed weaned to 2 at this time.
--- NOTE | 2020-07-06 07:05 | PC.NURSE ---
Dr. Chance notified of heart rate of 120s-130s after breathing tx and now into the 140s. Notified that levophed weaned from 8mcg to 2mcg. If BP tolerates may turn off.
--- NOTE | 2020-07-06 08:55 | HMH.ACPN2 ---
Internal Medicine - PN: Subj *Date: 07/06/20 *Time: 08:55 Interval history: Patient had to be intubated yesterday, afterwards had elevated BP and HR, was given a dose of IV metoprolol and had improvement. Later in the day BP dropped. Pt was given IVF bolus but had persistent hypotension. He was then started on Levophed IV and BP normalized. Levophed has almost been weaned off now. No new issues reported by nursing staff. Exam Vital signs and Labs for Last 24 Hours: Temp Pulse Resp BP Pulse Ox 99.6 F 134 H 30 H 105/69 L 94 L 07/06/20 08:00 07/06/20 08:00 07/06/20 08:00 07/06/20 08:00 07/06/20 08:00 Laboratory Results - last 24 hr 07/05/20 06:05: Total Counted 100, Neutrophils % (Manual) 92 H, Lymphocytes % (Manual) 4 L, Monocytes % (Manual) 4, Platelet Estimate Normal, RBC Morphology Normal 07/05/20 11:50: Urine Color Yellow, Urine Appearance Clear, Urine pH 5.5, Ur Specific [place] 1.025, Urine Protein Trace, Urine Glucose (UA) 2+, Urine Ketones 1+, Urine Blood Negative, Urine Nitrate Negative, Urine Bilirubin Negative, Urine Urobilinogen 0.2, Ur Leukocyte Esterase Negative, Urine RBC Occasional, Urine WBC 3-5 07/05/20 12:18: O2 % 100, ABG pH 7.12 L*, ABG pCO2 82.7 H, ABG pO2 285.6 H, ABG HCO3 26.3 H, ABG Total CO2 28.8 H, ABG O2 Saturation 99, ABG Base Excess -3.1 L, Michele Test Unacceptable, Vent Rate 440, Tidal Volume 18, PEEP 16 07/05/20 12:39: POC Glucose 196 H 07/05/20 15:42: POC Glucose 230 H 07/05/20 16:41: Specimen Source Right radial, O2 % 100, ABG pH 7.30 L, ABG pCO2 46.9 H, ABG pO2 160.4 H, ABG HCO3 22.5, ABG Total CO2 23.9, ABG O2 Saturation 99, ABG Base Excess -3.9 L, Michele Test Patient unable, Vent Rate 24, Tidal Volume 480, PEEP 12 07/05/20 20:16: POC Glucose 204 H 07/06/20 05:15: WBC 20.3 H* D, RBC 4.81, Hgb 15.0, Hct 45.5, MCV 94.5 H, MCH 31.2, MCHC 33.0, RDW 13.0, Plt Count 289, MPV 7.5, Neut % (Auto) 91.8 H, Lymph % (Auto) 2.2 L, Edwards % (Auto) 5.7, Eos % (Auto) 0.1, Baso % (Auto) 0.2, Neut # (Auto) 18.6 H, Lymph # (Auto) 0.4 L, Edwards # (Auto) 1.2 H, Eos # (Auto) 0.0, Baso # (Auto) 0.0 07/06/20 05:15: Sodium 142, Potassium 4.4, Chloride 107, Carbon Dioxide 25, Anion Gap 14.4, BUN 52 H D, Creatinine 1.10, Estimated Creat Clear 80, Estimated GFR 67, Est GFR ( Amer) 81, Glucose 207 H D, Calcium 9.0, Total Bilirubin 0.7, AST 28, ALT 17, Alkaline Phosphatase 128 H, Total Protein 6.9, Albumin 3.3 L, Globulin 3.6 H, Albumin/Globulin Ratio 0.9 L 07/06/20 05:56: POC Glucose 175 H 07/06/20 06:00: Specimen Source Left radial, O2 % 100, ABG pH 7.33 L, ABG pCO2 45.7 H, ABG pO2 259.5 H, ABG HCO3 23.5, ABG Total CO2 24.9, ABG Base Excess -2.5 L, Michele Test Patient unable, Vent Rate 24, Tidal Volume 480, PEEP 12 Vital Signs - 24 hr 07/05/20 11:06 07/05/20 11:10 07/05/20 11:20 Temperature 98.2 F Pulse Rate Pulse Rate [Apical] 84 125 H Pulse Rate [Right Radial] Respiratory Rate 30 H 35 H 17 Blood Pressure [Left Arm] 180/100 H Blood Pressure [Right Arm] 109/69 L 170/90 H 158/116 H 02 Sat by Pulse Oximetry 86 L 07/05/20 11:55 07/05/20 12:00 07/05/20 13:00 Temperature Pulse Rate 135 H Pulse Rate [Apical] 134 H 95 H Pulse Rate [Right Radial] Respiratory Rate 18 Blood Pressure [Left Arm] Blood Pressure [Right Arm] 186/104 H 95/56 L 02 Sat by Pulse Oximetry 95 95 95 07/05/20 14:00 07/05/20 14:56 07/05/20 15:05 Temperature 97.5 F L Pulse Rate Pulse Rate [Apical] 91 H 92 H Pulse Rate [Right Radial] Respiratory Rate 24 18 26 H Blood Pressure [Left Arm] Blood Pressure [Right Arm] 79/51 L 87/50 L 02 Sat by Pulse Oximetry 95 95 07/05/20 16:00 07/05/20 16:37 07/05/20 16:51 Temperature 97.5 F L 98.0 F Pulse Rate 68 Pulse Rate [Apical] 67 69 Pulse Rate [Right Radial] Respiratory Rate 24 34 H Blood Pressure [Left Arm] Blood Pressure [Right Arm] 96/62 L 107/68 L 02 Sat by Pulse Oximetry 95 95 07/05/20 17:50 07/05/20 18:00 07/05/20 18:24 [facility]
--- NOTE | 2020-07-06 09:06 | PC.NURSE ---
patient levophed drip turned off at this time. residual of tube feedings was 120ml. held this morning tube feeds.
[2020-07-06 09:12] LABS: Lymphocytes % 8 % (10-50); Neutrophils % 92 % (42-76); Total Cells Counted 100
[2020-07-06 09:13] LABS: Platelet Estimate Normal; RBC Morphology Normal
--- NOTE | 2020-07-06 09:46 | PC.NURSE ---
also verified with md we could dc all po diabetic meds and start medium intensity sliding scale. also stated it was okay to dc the metoprolol succinate 25mg and do metoprolol tartrate 12.5 bid. tartrate given at this time half of a 25mg to equal 12.5mg. verified this with rosibel puckett
--- NOTE | 2020-07-06 11:36 | PC.NURSE ---
turned versed drip down to 0.08mg/kg/hr
--- NOTE | 2020-07-06 11:47 | PC.NURSE ---
versed drip was turned down to 0.08 mg/kg/hr and levophed drip was restarted pressure was starting to have systolic of 70-86
[2020-07-06 12:09] LABS: Magnesium 2.6 mg/dl (1.6-2.3); Phosphorous 4.8 mg/dl (2.5-4.5)
[2020-07-06 12:13] LABS: D-Dimer > 8.10 ug/mL (0.0-0.5)
[2020-07-06 12:40] LABS: POC Glucose,Bedside 271 (70-110)
--- NOTE | 2020-07-06 12:51 | PC.NURSE ---
levophed drip was increased to 8mcg/min
--- NOTE | 2020-07-06 14:04 | HMH.PULMPN ---
Internal Medicine - PN: Subj *Date: 07/06/20 *Time: 14:04 Interval history: No acute respiratory events overnight. Exam - Constitutional Constitutional:: comfortable - HENMT Exam HENMT: normocephalic, atraumatic - Eye Exam Eyes:: eyelids normal, normal conjunctiva - Neck Exam Neck:: thyroid normal, no lymphadenopathy - Respiratory Exam Comments: Bilateral coarse breath sounds unchanged from yesterday. Patient intubated and sedated appears comfortable. - Cardiovascular Exam Cardiac:: S1, S2 - GI Exam GI:: soft, no hepatosplenomegaly - Skin Exam Skin: warm, no rash, dry - Neurological Exam Intubated and sedated - Extremities Exam Extremities: no cyanosis, no clubbing, no edema Assessment and Plan (1) Pneumonia due to COVID-19 virus Status: Acute Category: Medical Code(s): U07.1 - COVID-19; J12.82 - Pneumonia due to coronavirus disease 2019 (2) Respiratory failure with hypoxia Status: Acute Qualifiers: Chronicity: acute Qualified Code(s): J96.01 - Acute respiratory failure with hypoxia Category: Medical Code(s): J96.91 - Respiratory failure, unspecified with hypoxia (3) CAD (coronary artery disease), [place] coronary artery Status: Chronic Qualifiers: [place] vs. transplanted heart: [place] heart Associated angina: without angina Qualified Code(s): I25.10 - Atherosclerotic heart disease of [place] coronary artery without angina pectoris Category: Medical Code(s): I25.10 - Atherosclerotic heart disease of [place] coronary artery without angina pectoris (4) DM2 (diabetes mellitus, type 2) Status: Chronic Qualifiers: Diabetes mellitus exterminator insulin use: without fdc use Diabetes mellitus complication status: without complication Qualified Code(s): E11.9 - Type 2 diabetes mellitus without complications Category: Medical Code(s): E11.9 - Type 2 diabetes mellitus without complications - Assessment and plan all Dx Assessment and Plan for all problems:: #COVID-19 pneumonia: #Acute hypoxic respiratory failure requiring mechanical ventilation: 69-year-old no prior respiratory complaints never smoker with recent diagnosis of COVID-19 present with worsening respiratory failure cough and productive phlegm. CT showed bilateral diffuse pulmonary infiltrates. No evidence of acute pulmonary embolism. Patient respiratory status gradually worsened throughout his hospital course with increasing oxygen requirements to BiPAP,. Patient was initially DNR/DNI change his CODE STATUS to full code given his worsening respiratory status and severe respiratory distress patient was eventually intubated on December 03, 2020. Patient's respiratory status since intubation remained stable. Interval update: Patient respiratory status remained stable, ABG showed improved oxygenation today with a PO2 of 59.5, FiO2 decreased to 80%, will wean as tolerated. Patient hemodynamically stable however showing worsening leukocytosis WBC increased to 20.3 with febrile episode of 102. Chest x-ray did not show any worsening pulmonary infiltrates, oxygenation remained stable. Patient initially started on vancomycin however discontinued given because of his nasal MRSA culture from admission returned negative. Hemodynamically stable. Renal function stable. Plan: - Convalescent plasma infusion - Repeat nasal MRSA PCR culture, will continue Zosyn and add levofloxacin today x 7days - Repeat blood cultures -Continue mechanical ventilation with lung protective strategy - currently on 14 of PEEP for 440 of tidal volume 80% FiO2 with a rate of 18, will follow with blood gas and will change ventilator settings accordingly - Follow with PAL cultures - Continue dexamethasone and remdesivir for COVID-19 pneumonia - DuoNebs every 6 hours scheduled - Continue PPI and DVT prophylaxis Total critical care time spent on this patient is 35 minutes managing acute hypoxic respiratory failure needing mechanical vent
[2020-07-06 17:19] LABS: POC Glucose,Bedside 299 (70-110)
--- NOTE | 2020-07-06 17:49 | PC.NURSE ---
1200 tube feeding had 0 residual and tube feedings given the full 255ml of tube fed, and 230 flush of water. 1600 residual was 120ml, per protocol/design architect recommendation tube feeding administered per order. in depth discussion with patient and fact sheet read to on covid 19 convalescent plasma. stated fact sheet could be mailed to her. two nurses went over consent with patient and she stated it was okay to give the plasma. noted with q2 oral care, small bits of his lip are peeling and falling off. has tolerated oral care otherwise. suctioning done as needed. 2 new ivs placed this shift. patient has been turned q2hr. tolerating tube feeds okay. so far tolerating plasma transfusion well. lung sounds have been diminished. et tube turned to l side. tolerating levophed drip at this time at 8mcg/minute. bp has been up and down. heart rate has been better in the 80-90s. slightly feverish this shift. vent fio2 turned down to 80%. breathing over vent 24-31. vitals stable.
--- NOTE | 2020-07-06 18:39 | PC.NURSE ---
Addendum entered by Sophia Das RN 07/06/20 19:03: 1 hour post vital bp 115/62 temp: 100.6 hr 104 rr: 30 o2 95% Original Note: verified plasma at 1548 with jaci puckett plasma started at 1550 and finished at 1800 bp, temp, hr, rr, o2 preblood > 1545 118/71 99.8 106 29 95% start- 1550 115/76 100.0 108 26 94% 5min- 1555 106/67 99.8 109 30 95% 10min- 1600 96/70 99.8 103 26 95% 15min- 1605 118/73 100.0 112 29 95% 30min- 1620 124/70 99.8 109 30 94% 45min- 1635 127/78 99.3 116 25 95% 60min- 1650 121/62 99.4 99 29 95% 2nd hour- 1750 101/60 100.4 88 28 95% complete 1800 96/57 100.4 91 27 96% all temps axillary and all bps taken in r arm. total colume of plasma 253mls ns flush equaled total of 55mls
[2020-07-06 22:07] LABS: POC Glucose,Bedside 241 (70-110)
[2020-07-07] VITALS (31 sets, daily range): BP systolic 89–138; BP diastolic 54–92; PULSE 79–135; RESP 22–29; TEMP 36.7–38.3; O2SAT 93–96; BMI 23.9
[2020-07-07 04:26] LABS: ABG Base Excess -0.6 mmol/L (-2.4-2.3); ABG HCO3 24.5 mmhg (22.0-26.0); ABG Oxygen Saturation 97 % (90-100); ABG PH 7.38 mmol/L (7.35-7.45); ABG PO2 90.7 mmhg (80-100); ABG TCO2 25.7 mmhg (23-27); Allen's Test Patient Unable; Oxygen 80 %; PEEP 12; Source Right Radial; Tidal Volume 480; Vent Rate 24
[2020-07-07 06:27] LABS: POC Glucose,Bedside 255 (70-110)
[2020-07-07 06:38] LABS: Basophils % 0.1 % (0.1-2.0); Eosinophils # 0.1 K/mm3 (0.0-0.4); Eosinophils % 0.4 % (0.1-12.0); Hematocrit 44.1 % (42.0-52.0); Hemoglobin 14.5 g/dL (14.1-18.0); Lymphocytes # 0.5 K/mm3 (0.7-4.5); Lymphocytes % 2.6 % (10-50); Mean Corpuscular HGB Conc 32.9 g/dL (31.8-35.4); Mean Corpuscular Hemoglobin 31.6 pg (27.0-31.2); Mean Corpuscular Volume 96.1 fl (80-94); Mean Platelet Volume 8.3 fl (7.4-10.4); Monocytes # 1.2 K/mm3 (0.1-1.0); Monocytes % 5.9 % (1.7-9.3); Neutrophils # 18.5 K/mm3 (1.8-7.8); Neutrophils % 91.1 % (37.0-80.0); Platelet Count 241 K/mm3 (142-424); Red Blood Count 4.59 M/mm3 (4.60-6.20); White Blood Count 20.3 K/mm3 (4.8-10.8)
[2020-07-07 06:46] LABS: Alanine Aminotransferase 18 U/L (12-78); Albumin/Globulin Ratio 0.8 (1.1-1.8); Alkaline Phosphatase 130 U/L (38-126); Anion Gap 10.4 mEq/L (5-15); Aspartate Amino Transferase 29 U/L (17-59); Bilirubin,Total 0.7 mg/dl (0.2-1.3); Blood Urea Nitrogen 54 mg/dl (9-20); Calcium 8.6 mg/dl (8.4-10.2); Carbon Dioxide 29 mmol/L (22.0-30.0); Chloride 108 mmol/L (98-107); Creatinine Clearance Estimated 77 mL/min (50-200); Estimated Glomerular Filt Rate 67 ml/min (>60); GFR (African American) 81 ML/MIN (>60); Globulin 3.6 g/dL (1.3-3.2); Glucose 305 mg/dl (74-100); Potassium 4.4 mmoL/L (3.5-5.1); Sodium 143 mmol/L (136-145); Total Protein,Serum 6.6 g/dl (6.3-8.2)
[2020-07-07 06:52] LABS: MANUAL DIFFERENTIAL MANUAL DIFFERENTIAL (MANUAL DIFF)
--- NOTE | 2020-07-07 09:16 | HMH.ACPN2 ---
Internal Medicine - PN: Subj *Date: 07/07/20 *Time: 09:16 Interval history: No new issues reported overnight. Exam Vital signs and Labs for Last 24 Hours: Temp Pulse Resp BP Pulse Ox 98.5 F 104 H 29 H 126/79 94 L 07/07/20 09:00 07/07/20 09:00 07/07/20 09:00 07/07/20 09:00 07/07/20 09:00 Laboratory Results - last 24 hr 07/06/20 09:39: Blood Type B Positive 07/06/20 09:39: Blood Type Cancelled 07/06/20 11:05: D-Dimer > 8.10 H 07/06/20 11:05: Phosphorus 4.8 H, Magnesium 2.6 H 07/06/20 11:38: Blood Type Confirm B Positive 07/06/20 12:04: POC Glucose 271 H 07/06/20 16:13: POC Glucose 299 H 07/06/20 22:00: POC Glucose 241 H 07/07/20 04:01: Specimen Source Right radial, O2 % 80, ABG pH 7.38, ABG pCO2 42.0, ABG pO2 90.7, ABG HCO3 24.5, ABG Total CO2 25.7, ABG O2 Saturation 97, ABG Base Excess -0.6, Michele Test Patient unable, Vent Rate 24, Tidal Volume 480, PEEP 12 07/07/20 06:20: POC Glucose 255 H 07/07/20 06:25: WBC 20.3 H*, RBC 4.59 L, Hgb 14.5, Hct 44.1, MCV 96.1 H, MCH 31.6 H, MCHC 32.9, RDW 13.0, Plt Count 241, MPV 8.3, Neut % (Auto) 91.1 H, Lymph % (Auto) 2.6 L, [place] % (Auto) 5.9, Eos % (Auto) 0.4, Baso % (Auto) 0.1, Neut # (Auto) 18.5 H, Lymph # (Auto) 0.5 L, [place] # (Auto) 1.2 H, Eos # (Auto) 0.1, Baso # (Auto) 0.0 07/07/20 06:25: Sodium 143, Potassium 4.4, Chloride 108 H, Carbon Dioxide 29, Anion Gap 10.4, BUN 54 H, Creatinine 1.10, Estimated Creat Clear 77, Estimated GFR 67, Est GFR ( Amer) 81, Glucose 305 H, Calcium 8.6, Total Bilirubin 0.7, AST 29, ALT 18, Alkaline Phosphatase 130 H, Total Protein 6.6, Albumin 3.0 L, Globulin 3.6 H, Albumin/Globulin Ratio 0.8 L Vital Signs - 24 hr 07/06/20 09:45 07/06/20 10:00 07/06/20 11:00 Temperature 99.8 F H 99.7 F H Pulse Rate Pulse Rate [Apical] 126 H 108 H Pulse Rate [Right Radial] Respiratory Rate 27 H 29 H 30 H Blood Pressure [Right Arm] 106/64 L 101/63 L 02 Sat by Pulse Oximetry 94 L 93 L 07/06/20 11:20 07/06/20 12:00 07/06/20 12:49 Temperature 98.8 F 99.1 F Pulse Rate 104 H 100 H Pulse Rate [Apical] 99 H 95 H Pulse Rate [Right Radial] Respiratory Rate 27 H 20 Blood Pressure [Right Arm] 84/49 L 98/58 L 02 Sat by Pulse Oximetry 97 97 07/06/20 14:00 07/06/20 14:10 07/06/20 14:41 Temperature 98.6 F Pulse Rate 120 H Pulse Rate [Apical] 117 H Pulse Rate [Right Radial] Respiratory Rate 29 H Blood Pressure [Right Arm] 106/76 L 02 Sat by Pulse Oximetry 94 L 94 L 07/06/20 15:00 07/06/20 16:00 07/06/20 18:00 Temperature 100.3 F H 98.9 F Pulse Rate 100 H Pulse Rate [Apical] 114 H 90 Pulse Rate [Right Radial] Respiratory Rate 34 H 29 H 27 H Blood Pressure [Right Arm] 110/68 110/71 02 Sat by Pulse Oximetry 95 95 07/06/20 18:28 07/06/20 20:00 07/06/20 21:00 Temperature 100.4 F H 100.3 F H Pulse Rate 91 H 90 Pulse Rate [Apical] Pulse Rate [Right Radial] 89 90 Respiratory Rate 27 H 27 H 31 H Blood Pressure [Right Arm] 99/61 L 102/64 L 02 Sat by Pulse Oximetry 96 94 L 96 07/06/20 22:00 07/06/20 23:00 07/06/20 23:11 Temperature 99.3 F 99.9 F H Pulse Rate Pulse Rate [Apical] Pulse Rate [Right Radial] 102 H 89 Respiratory Rate 27 H 29 H 27 H Blood Pressure [Right Arm] 112/75 100/62 L 02 Sat by Pulse Oximetry 95 96 93 L 07/06/20 23:30 07/07/20 00:00 07/07/20 01:00 Temperature 100.9 F H Pulse Rate 80 Pulse Rate [Apical] Pulse Rate [Right Radial] 87 85 Respiratory Rate 27 H 27 H Blood Pressure [Right Arm] 101/61 L 106/63 L 02 Sat by Pulse Oximetry 94 L 95 93 L 07/07/20 02:00 07/07/20 02:16 07/07/20 02:49 Temperature 100.4 F H Pulse Rate Pulse Rate [Apical] Pulse Rate [Right Radial] 83 Respiratory Rate 24 Blood Pressure [Right Arm] 107/66 L 02 Sat by Pulse Oximetry 95 94 L 94 L 07/07/20 03:00 07/07/20 04:00 07/07/20 05:00 Temperature 100.6 F H 98.4 F 98.0 F Pulse Rate 90 Pulse Rate [Apical] Pulse Rate [Right Radial] 101 H 99 H 79
[2020-07-07 09:18] LABS: Eosinophils % 2 % (0-3); Lymphocytes % 4 % (10-50); Monocytes % 2 % (2-9); Neutrophils % 92 % (42-76); Platelet Estimate Normal; RBC Morphology Normal; Total Cells Counted 100
--- NOTE | 2020-07-07 10:08 | HMH.PULMPN ---
Internal Medicine - PN: Subj *Date: 07/07/20 *Time: 11:13 Interval history: No acute respiratory events overnight. Exam - Constitutional Constitutional:: comfortable - HENMT Exam HENMT: atraumatic - Eye Exam Eyes:: eyelids normal, normal conjunctiva - Neck Exam Neck:: thyroid normal, no lymphadenopathy - Respiratory Exam Comments: Intubated and sedated.. Comfortable. Bilateral coarse breath sounds unchanged from yesterday. No wheezing heard. - Cardiovascular Exam Cardiac:: S1, S2 - GI Exam GI:: soft, no hepatosplenomegaly - Skin Exam Skin: warm, no rash - Neurological Exam Intubated and sedated. - Extremities Exam Extremities: no cyanosis, no clubbing Comments: Bilateral trace right lower extremity edema noted Assessment and Plan (1) Pneumonia due to COVID-19 virus Status: Acute Category: Medical Code(s): U07.1 - COVID-19; J12.82 - Pneumonia due to coronavirus disease 2019 (2) Respiratory failure with hypoxia Status: Acute Qualifiers: Chronicity: acute Qualified Code(s): J96.01 - Acute respiratory failure with hypoxia Category: Medical Code(s): J96.91 - Respiratory failure, unspecified with hypoxia (3) CAD (coronary artery disease), alutiiq coronary artery Status: Chronic Qualifiers: [place] vs. transplanted heart: alutiiq heart Associated angina: without angina Qualified Code(s): I25.10 - Atherosclerotic heart disease of alutiiq coronary artery without angina pectoris Category: Medical Code(s): I25.10 - Atherosclerotic heart disease of alutiiq coronary artery without angina pectoris (4) DM2 (diabetes mellitus, type 2) Status: Chronic Qualifiers: Diabetes mellitus exterminator helper insulin use: without exterminator helper use Diabetes mellitus complication status: without complication Qualified Code(s): E11.9 - Type 2 diabetes mellitus without complications Category: Medical Code(s): E11.9 - Type 2 diabetes mellitus without complications - Assessment and plan all Dx Assessment and Plan for all problems:: #COVID-19 pneumonia: #Acute hypoxic respiratory failure requiring mechanical ventilation: 69-year-old no prior respiratory complaints never smoker with recent diagnosis of COVID-19 present with worsening respiratory failure cough and productive phlegm. CT showed bilateral diffuse pulmonary infiltrates. No evidence of acute pulmonary embolism. Patient respiratory status gradually worsened throughout his hospital course with increasing oxygen requirements to BiPAP,. Patient was initially DNR/DNI change his CODE STATUS to full code given his worsening respiratory status and severe respiratory distress patient was eventually intubated on December 03, 2020. Patient's respiratory status since intubation remained stable. Interval update: Blood gas relatively remained stable with slight decrease in his oxygenation to 90.7, his FiO2 was decreased to 80% yesterday. WBC stable at 20.3. Creatinine stable. Hemodynamically stable. Volume status net negative since admission. We will closely monitor. Afebrile in the last 12 hours Plan: - F/U nasal MRSA PCR culture, will continue vancomycin awaiting blood cultures. Continue Zosyn and add levofloxacin today x 7days - F/U blood cultures - Continue mechanical ventilation with lung protective strategy - Continue dexamethasone and remdesivir for COVID-19 pneumonia - DuoNebs every 6 hours scheduled - Continue PPI and DVT prophylaxis Total critical care time spent on this patient is 35 minutes managing acute hypoxic respiratory failure needing mechanical ventilation. This time spent include reviewing test results including interpreting chest x-rays, labs and arterial blood gas, optimizing the ventilator settings,formulating plan of care, discussing the plan of care with the team and the nursing staff. This time does not include any procedures performed, for which a separate procedure note was documented
--- NOTE | 2020-07-07 12:35 | DIET.NUTRFU ---
Addendum entered by Chela Mccabe 07/09/20 11:56: Chest X-ray this am confirmed good placement NG. I am concerned that pt has not yet had a BM since TF regimen was started and that he is continuing to lose weight. No other signs poor tolerance. BG appear to be trending up as well. Will cautiously restart feedings without change in order stated below and in TF order. Monitoring tolerance, labs, fluid status, BG to alter as indicated. Addendum entered by Chela Mccabe 07/08/20 16:38: Pt with blood from NG, no other signs poor tolerance. Also with continued elevated electrolytes, BG, and renal labs. Recommend holding til am if pt with blood aspirate at next feeding, continue feedings per order if without blood aspirate, communicated plan with RN. Continuing to monitor. Original Note: Pt with elevated Mg, Phos. Change in TF order to bolus feedings of 215ml q 4hr. No change in fluids. Pt receiving 2,393ml with formula and flushes. Regimen provides 1935kcal, 81g protein, 136g cho, 120g fat, and 1013ml free water. Pt tolerating feeds well. continuing to monitor tolerance and nutrition related labs to alter as indicated.
--- NOTE | 2020-07-07 13:11 | PC.NURSE ---
levophed drip turned off at this time
--- NOTE | 2020-07-07 13:17 | PC.NURSE ---
1200 feeding given with no difficulty the 255ml pulmocare and 230 flush. no residual when checked
--- NOTE | 2020-07-07 17:54 | PC.NURSE ---
md aware patient has had critical glucoses
--- NOTE | 2020-07-07 18:07 | PC.NURSE ---
patient has doen oay this shit. heart rate towards end of shift has become elevated at 130s. weaning levophed drip down at this time. no change in versed or fenanyl drips today. [id number] and oral care. lung sound diminished. good urine output noted. only slight elevation in temp. tolerating tube fees well. no signs of pain. cpot has been 0. patient sedation has been about -3. vitals stable
--- NOTE | 2020-07-07 18:12 | PC.NURSE ---
levophed drip turned off at this time
--- NOTE | 2020-07-07 18:32 | PC.NURSE ---
md updated on patient condition. made aware of heart rate
[2020-07-08] VITALS (33 sets, daily range): BP systolic 87–133; BP diastolic 51–87; PULSE 93–129; RESP 22–110; TEMP 36.4–38.6; O2SAT 91–99; BMI 24.0
--- NOTE | 2020-07-08 07:30 | XR_ITS ---
PROCEDURE: XR CHEST PORTABLE Referring Doctor: Bryon Chance Patient Age:69Y CLINICAL HISTORY: Pt intubated Covid positive. Pneumonia COMPARISON: CT CT ANGIO CHEST from 06/28/2020 CR XR CHEST PORTABLE from 07/04/2020 CR XR CHEST PORTABLE from 07/05/2020 CR XR CHEST PORTABLE from 07/06/2020 FINDINGS: AP portable upright CXR ET tube satisfactory position. ET tube tip position 5.2 cm above pj NG tube satisfactory position it passes in the student to the stomach with tip just the left of midline at body of stomach. The patchy bilateral infiltrates appear to be slightly less dense. Appears to be slight clearing and better expansion bilaterally compared to July 06 exam. The improvement is most notable compared to the July 04 CXR exam. Heart appears normal size. Pulmonary vascularity upper normal. teletypesetter monitor leads in place IMPRESSION: ET tube, NG tube satisfactory position. Bilateral infiltrates-with slight progressive improvement since previous studies. Dictated by: Bienvenido Moreno MD 07/08/2020 08:21 Bienvenido Moreno MD in [facility] 07/08/2020 08:21
[2020-07-08 07:45] LABS: ABG Base Excess -2.2 mmol/L (-2.4-2.3); ABG HCO3 22.6 mmhg (22.0-26.0); ABG Oxygen Saturation 98 % (90-100); ABG PCO2 37.7 mmhg (35.0-45.0); ABG PO2 121.9 mmhg (80-100); ABG TCO2 23.8 mmhg (23-27)
[2020-07-08 07:47] LABS: Allen's Test Patient Unable; Oxygen 80 %; PEEP 12; Source Right Radial; Tidal Volume 480; Vent Rate 24
--- NOTE | 2020-07-08 08:56 | PC.NURSE ---
reported to md software solutions architect that patient noted to have blood coming from ng tube. has had multiple bowel movements, noted to have a bloody smell and pasty, but doesnt show a lot of blood in stool. md stated to go on and give tube feeds and meds but hold lovenox until primary md rounds
--- NOTE | 2020-07-08 09:20 | PC.NURSE ---
TURNED FIO2 DOWN FROM 80% TO 70% PER ANNANGI ORDERS. PT SATS 95% AND TOLERATING THIS CHANGE WELL AT THIS TIME.
--- NOTE | 2020-07-08 09:48 | HMH.ACPN2 ---
Internal Medicine - PN: Subj *Date: 07/08/20 *Time: 10:04 Interval history: Nurse noted some blood from NG aspirate this morning. Exam Vital signs and Labs for Last 24 Hours: Temp Pulse Resp BP Pulse Ox 99.5 F 97 H 29 H 93/70 L 94 L 07/08/20 09:00 07/08/20 09:00 07/08/20 09:00 07/08/20 09:00 07/08/20 09:00 Laboratory Results - last 24 hr 07/08/20 07:00: Specimen Source Right radial, O2 % 80, ABG pH 7.40, ABG pCO2 37.7, ABG pO2 121.9 H, ABG HCO3 22.6, ABG Total CO2 23.8, ABG O2 Saturation 98, ABG Base Excess -2.2, Michele Test Patient unable, Vent Rate 24, Tidal Volume 480, PEEP 12 Vital Signs - 24 hr 07/07/20 10:00 07/07/20 11:00 07/07/20 11:10 Temperature 98.6 F 98.7 F Pulse Rate Pulse Rate [Apical] 93 H 108 H Pulse Rate [Right Radial] Respiratory Rate 27 H 29 H 26 H Blood Pressure [Right Arm] 105/64 L 111/68 02 Sat by Pulse Oximetry 95 94 L 07/07/20 12:00 07/07/20 13:00 07/07/20 14:00 Temperature 98.7 F 99.0 F 100.4 F H Pulse Rate 110 H Pulse Rate [Apical] 110 H 116 H 116 H Pulse Rate [Right Radial] Respiratory Rate 29 H 27 H 28 H Blood Pressure [Right Arm] 109/92 L 106/71 L 89/58 L 02 Sat by Pulse Oximetry 93 L 94 L 95 07/07/20 14:06 07/07/20 15:00 07/07/20 16:00 Temperature 98.8 F 99.5 F Pulse Rate 111 H 120 H Pulse Rate [Apical] 120 H 130 H Pulse Rate [Right Radial] Respiratory Rate 26 H 27 H Blood Pressure [Right Arm] 123/76 138/74 02 Sat by Pulse Oximetry 95 94 L 94 L 07/07/20 17:00 07/07/20 18:00 07/07/20 18:20 Temperature 99.1 F 99.8 F H Pulse Rate Pulse Rate [Apical] 133 H 131 H Pulse Rate [Right Radial] Respiratory Rate 26 H 26 H Blood Pressure [Right Arm] 118/79 128/85 02 Sat by Pulse Oximetry 94 L 94 L 95 07/07/20 19:00 07/07/20 20:00 07/07/20 20:35 Temperature 98.7 F 99.1 F Pulse Rate 135 H 108 H Pulse Rate [Apical] 133 H Pulse Rate [Right Radial] 114 H Respiratory Rate 27 H 24 26 H Blood Pressure [Right Arm] 119/77 120/74 02 Sat by Pulse Oximetry 94 L 96 95 07/07/20 21:00 07/07/20 22:00 07/07/20 23:00 Temperature 100.6 F H 100.5 F H 100.6 F H Pulse Rate Pulse Rate [Apical] Pulse Rate [Right Radial] 133 H 122 H 112 H Respiratory Rate 25 H 26 H 26 H Blood Pressure [Right Arm] 122/76 121/80 96/54 L 02 Sat by Pulse Oximetry 95 96 96 07/08/20 00:00 07/08/20 00:39 07/08/20 01:00 Temperature 100.0 F H 101.0 F H Pulse Rate 109 H Pulse Rate [Apical] Pulse Rate [Right Radial] 116 H 110 H Respiratory Rate 24 110 H 26 H Blood Pressure [Right Arm] 87/56 L 90/54 L 02 Sat by Pulse Oximetry 91 L 96 96 07/08/20 02:00 07/08/20 02:15 07/08/20 03:00 Temperature 100.9 F H 101.4 F H Pulse Rate Pulse Rate [Apical] Pulse Rate [Right Radial] 115 H 114 H 122 H Respiratory Rate 29 H 26 H Blood Pressure [Right Arm] 98/61 L 109/65 L 02 Sat by Pulse Oximetry 96 95 95 07/08/20 04:00 07/08/20 05:00 07/08/20 06:00 Temperature 99.6 F 97.6 F 98.6 F Pulse Rate 120 H Pulse Rate [Apical] Pulse Rate [Right Radial] 117 H 110 H 95 H Respiratory Rate 26 H 26 H 26 H Blood Pressure [Right Arm] 112/61 112/65 92/59 L 02 Sat by Pulse Oximetry 95 96 94 L 07/08/20 07:00 07/08/20 08:00 07/08/20 09:00 Temperature 98.5 F 99.7 F H 99.5 F Pulse Rate Pulse Rate [Apical] 96 H 97 H Pulse Rate [Right Radial] 95 H Respiratory Rate 26 H 26 H 29 H Blood Pressure [Right Arm] 92/51 L 101/66 L 93/70 L 02 Sat by Pulse Oximetry 95 95 94 L I & O for Last 24 hours: Intake & Output 07/05/20 07/06/20 07/07/20 07/08/20 23:59 23:59 23:59 23:59 Intake Total 1867.716 / 0543.486 9963.667 / 2830.667 2458.958 / 2472.958 122.667 / 122.667 Output Total 2277 / 2427 3831 / 4031 4215 / 4250 928 / 928 Balance -409.284 / -530.284 -1027.333 / -1200.333 -1756.042 / -1777.042 -805.333 / -805.333 Weight 193 lb 12.581 oz 199 lb 4.766 oz 186 lb 8.177 oz 187 lb 2.759 oz Microbiology Reports for the Last 24 Hours: Microbi
[2020-07-08 10:34] LABS: Basophils % 0.2 % (0.1-2.0); Chloride 109 mmol/L (98-107); Eosinophils # 0.2 K/mm3 (0.0-0.4); Eosinophils % 0.9 % (0.1-12.0); Hematocrit 46.3 % (42.0-52.0); Lymphocytes # 0.4 K/mm3 (0.7-4.5); Lymphocytes % 2.6 % (10-50); Mean Corpuscular HGB Conc 32.5 g/dL (31.8-35.4); Mean Corpuscular Volume 95.3 fl (80-94); Mean Platelet Volume 8.3 fl (7.4-10.4); Monocytes # 0.9 K/mm3 (0.1-1.0); Monocytes % 4.9 % (1.7-9.3); Neutrophils % 91.5 % (37.0-80.0); Platelet Count 193 K/mm3 (142-424); Red Blood Count 4.86 M/mm3 (4.60-6.20); White Blood Count 17.4 K/mm3 (4.8-10.8)
[2020-07-08 10:35] LABS: Chloride 110 mmol/L (98-107); Potassium 4.6 mmoL/L (3.5-5.1); Sodium 144 mmol/L (136-145); Sodium 145 mmol/L (136-145)
[2020-07-08 10:37] LABS: Blood Urea Nitrogen 58 mg/dl (9-20); Creatinine Clearance Estimated 85 mL/min (50-200); Estimated Glomerular Filt Rate 74 ml/min (>60); GFR (African American) 90 ML/MIN (>60)
[2020-07-08 10:38] LABS: Alanine Aminotransferase 22 U/L (12-78); Albumin Level 2.8 g/dl (3.5-5.0); Albumin/Globulin Ratio 0.8 (1.1-1.8); Alkaline Phosphatase 109 U/L (38-126); Anion Gap 8.6 mEq/L (5-15); Anion Gap 9.6 mEq/L (5-15); Aspartate Amino Transferase 28 U/L (17-59); Bilirubin,Total 0.6 mg/dl (0.2-1.3); Blood Urea Nitrogen 57 mg/dl (9-20); Calcium 8.4 mg/dl (8.4-10.2); Carbon Dioxide 30 mmol/L (22.0-30.0); Carbon Dioxide 31 mmol/L (22.0-30.0); Creatinine Clearance Estimated 85 mL/min (50-200); Estimated Glomerular Filt Rate 74 ml/min (>60); GFR (African American) 90 ML/MIN (>60); Globulin 3.5 g/dL (1.3-3.2); Glucose 285 mg/dl (74-100); Total Protein,Serum 6.3 g/dl (6.3-8.2)
[2020-07-08 10:39] LABS: Calcium 8.5 mg/dl (8.4-10.2); Glucose 289 mg/dl (74-100)
[2020-07-08 10:41] LABS: MANUAL DIFFERENTIAL MANUAL DIFFERENTIAL (MANUAL DIFF)
[2020-07-08 11:24] LABS: POC Glucose,Bedside 229 (70-110)
[2020-07-08 11:24] LABS: POC Glucose,Bedside 227 (70-110)
[2020-07-08 11:24] LABS: POC Glucose,Bedside 291 (70-110)
[2020-07-08 11:24] LABS: POC Glucose,Bedside 279 (70-110)
[2020-07-08 11:27] LABS: Lymphocytes % 3 % (10-50); Monocytes % 2 % (2-9); Neutrophils % 95 % (42-76); Platelet Estimate Normal; RBC Morphology Normal; Total Cells Counted 100
[2020-07-08 12:14] LABS: POC Glucose,Bedside 252 (70-110)
[2020-07-08 16:56] LABS: POC Glucose,Bedside 337 (70-110)
--- NOTE | 2020-07-08 17:49 | PC.NURSE ---
Addendum entered by Sophia Das RN 07/08/20 19:01: cpot score has been 0 and rass -1 Original Note: patient has tolerated decrease in fio2 well this shift. has remained febrile. heart rate jumped up into 130s but is back down about 110. lovenox dced so jonas hose applied to r leg. oral care provided. et tube moved midline this shift. scant amount of secretions with suctioning. has not required levophed this shift. remains on fentanyl at 60mcg/hr and versed at 0.1mg/kg/min. diminished lung loja. vitals stable.
--- NOTE | 2020-07-08 17:49 | PC.NURSE ---
this tech swept and mopped pt's room.
--- NOTE | 2020-07-08 18:27 | PC.NURSE ---
dr goncalves called checking on patient. relayed to him about heart rate. instructed to change metoprolol order to 25mg bid
[2020-07-08 20:02] LABS: POC Glucose,Bedside 309 (70-110)
--- NOTE | 2020-07-08 20:26 | PC.NURSE ---
30mL residual at 1999. No blood noted in from his OG. Tube feeds and flush given. HOB elevated 30 degrees. Ambu bag at bedside. Oral cavity noted to be dry. Oral care given. No secretions orally or via ETT. ETT moved to left side. F/C and draining yellow, clear urine. Afebrile at this time but tachycardia noted on telemetry.
[2020-07-09] VITALS (34 sets, daily range): BP systolic 93–140; BP diastolic 58–89; PULSE 96–140; RESP 19–29; TEMP 36.8–38.8; O2SAT 70–100; BMI 23.6
--- NOTE | 2020-07-09 05:00 | XR_ITS ---
PROCEDURE: XR CHEST PORTABLE CLINICAL HISTORY: Pt intubated. Follow-up Covid19 pneumonia COMPARISON: CT CT ANGIO CHEST from 06/28/2020 CR XR CHEST PORTABLE from 07/05/2020 CR XR CHEST PORTABLE from 07/06/2020 CR XR CHEST PORTABLE from 07/08/2020 FINDINGS: Endotracheal tube is in good position with the tip 0.6 cm above the pj. Nasogastric tube tip is not visible on the film but is below the GE junction No change bilateral pneumonia No acute bony abnormalities. IMPRESSION: No change bilateral pneumonia with good position of endotracheal tube and nasogastric tube Dictated by: Michele Sheth MD 07/09/2020 06:26 Michele Sheth MD in [facility] 07/09/2020 06:26
--- NOTE | 2020-07-09 05:13 | PC.NURSE ---
While attempting to change him when he was incontinent of stool, his O2 decreased and respiratory was called. His FiO2 had to be increased to 100 FiO2 for a short period of time but is now back down to 60%. He was also noted to have an increase in thick, white oral secretions. For is 0400 residual there was noted to be pink thick looking drainage in the tubing. Tube feeding held per report. Also noted to be tachycardic in the 130s. He is afebrile at this time via axillary route. Acetiminophen was administered r/t being febrile the last several days and is his body temperature feeling very warm. Cannot attempt rectal at this time r/t being unstable.
[2020-07-09 05:14] LABS: POC Glucose,Bedside 205 (70-110)
--- NOTE | 2020-07-09 06:44 | PC.NURSE ---
FiO2 increased to 70% per respiratory at this time.
[2020-07-09 07:35] LABS: ABG Base Excess 1.1 mmol/L (-2.4-2.3); ABG HCO3 27.1 mmhg (22.0-26.0); ABG Oxygen Saturation 93 % (90-100); ABG PH 7.33 mmol/L (7.35-7.45); ABG TCO2 28.7 mmhg (23-27)
[2020-07-09 07:43] LABS: Allen's Test Y; Oxygen 70 %; PEEP 12; Source Right Radial; Tidal Volume 480; Vent Rate 24
[2020-07-09 07:44] LABS: ABG PCO2 52.7 mmhg (35.0-45.0)
--- NOTE | 2020-07-09 08:04 | SW/DCPLANNER ---
Addendum entered by Yany Valle 08/16/20 14:46: PATIENT HAS BEEN ACCEPTED TO [facility] WITH A ACCEPTING MD BECERRA... IS AWARE AND IS IN AGREEMENT OF THE PLAN... WAITING ON TRANSPORT TO TAKE PATIENT.... Addendum entered by Yany Valle 08/13/20 14:13: [facility] CAN NOT TAKE THIS PATIENT, THEY DO NOT HAVE ANY BEDS...SENT IT TO [facility] IN [place], WAITING SYSTEMS TECHNOLOGIST BACK... Addendum entered by Yany Valle 08/13/20 10:03: SENT UPDATES THIS MORNING TO [facility] SINCE MD THINKS PATIENT IS CLOSE TO BEING READY FOR A MOVE.. I CALLED AND GOT THE FAXED NUMBER TO SEND MEDICAL RECORD... WAITING ON RETURN CALL.... Addendum entered by Yany Valle 07/30/20 11:25: SPOKE WITH DR HAMMOND TODAY REGARDING GETTING THIS PATIENT TO [facility]...HE SUGGESTED [facility] AND I HAVE GOTTEN A PACKET TOGETHER AND WILL SEND IT ONCE THE SOLAR DESIGNER LETS ME KNOW IF THEY HAVE ANY BEDS AVAILABLE..... Addendum entered by Yany Valle 07/25/20 06:32: PATIENT CONTINUES TO BE IN THE COVID UNIT AND IS NOT MEDICALLY READY FOR ANY TYPE OF DISPOSITION.. HAVE NOT BEEN GIVEN ANY ORDERS TO TRY AND GET PATIENT MOVED TO ANOTHER FACILITY AT THIS TIME.. WAITING TO SEE IF HE IS GOING TO BE ABLE TO BE WEANED OR IF HE IS GOING TO NEED TO GO TO A SKILLED LEVEL OF CARE THAT CAN ATTEMPT WEANING... Original Note: PATIENT REMAINS IN THE COVID UNIT...
--- NOTE | 2020-07-09 08:53 | HMH.ACPN2 ---
Internal Medicine - PN: Subj *Date: 07/09/20 *Time: 08:53 Interval history: Per nursing staff, FiO2 was weaned down to 60% overnight, but had to be increased back to 70% this morning after patient was repositioned in bed. Exam Vital signs and Labs for Last 24 Hours: Temp Pulse Resp BP Pulse Ox 100.2 F H 130 H 24 127/81 92 L 07/09/20 08:00 07/09/20 08:00 07/09/20 08:00 07/09/20 08:00 07/09/20 08:00 Laboratory Results - last 24 hr 07/07/20 11:59: POC Glucose 229 H 07/07/20 16:18: POC Glucose 279 H 07/07/20 19:38: POC Glucose 227 H 07/08/20 05:28: POC Glucose 291 H 07/08/20 10:20: WBC 17.4 H, RBC 4.86, Hgb 15.0, Hct 46.3, MCV 95.3 H, MCH 31.0, MCHC 32.5, RDW 13.0, Plt Count 193, MPV 8.3, Neut % (Auto) 91.5 H, Lymph % (Auto) 2.6 L, Glenn % (Auto) 4.9, Eos % (Auto) 0.9, Baso % (Auto) 0.2, Neut # (Auto) 16.0 H, Lymph # (Auto) 0.4 L, Glenn # (Auto) 0.9, Eos # (Auto) 0.2, Baso # (Auto) 0.0, Total Counted 100, Neutrophils % (Manual) 95 H, Lymphocytes % (Manual) 3 L, Monocytes % (Manual) 2, Platelet Estimate Normal, RBC Morphology Normal 07/08/20 10:20: Sodium 144, Potassium 4.6, Chloride 110 H, Carbon Dioxide 30, Anion Gap 8.6, BUN 57 H, Creatinine 1.00, Estimated Creat Clear 85, Estimated GFR 74, Est GFR ( Amer) 90, Glucose 289 H, Calcium 8.5, Total Bilirubin 0.6, AST 28, ALT 22, Alkaline Phosphatase 109, Total Protein 6.3, Albumin 2.8 L, Globulin 3.5 H, Albumin/Globulin Ratio 0.8 L 07/08/20 10:20: Sodium 145, Potassium 4.6, Chloride 109 H, Carbon Dioxide 31 H, Anion Gap 9.6, BUN 58 H, Creatinine 1.00, Estimated Creat Clear 85, Estimated GFR 74, Est GFR ( Amer) 90, Glucose 285 H, Calcium 8.4 07/08/20 12:00: POC Glucose 252 H 07/08/20 16:19: POC Glucose 337 H* 07/08/20 19:54: POC Glucose 309 H* 07/09/20 05:00: POC Glucose 205 H 07/09/20 07:00: Specimen Source Right radial, O2 % 70, ABG pH 7.33 L, ABG pCO2 52.7 H, ABG pO2 67.0 L, ABG HCO3 27.1 H, ABG Total CO2 28.7 H, ABG O2 Saturation 93, ABG Base Excess 1.1, Michele Test Y, Vent Rate 24, Tidal Volume 480, PEEP 12 Vital Signs - 24 hr 07/08/20 09:20 07/08/20 10:00 07/08/20 11:00 Temperature 99.3 F Pulse Rate Pulse Rate [Apical] 101 H 109 H Pulse Rate [Right Radial] Respiratory Rate 28 H 29 H 29 H Blood Pressure [Right Arm] 101/73 L 99/63 L 02 Sat by Pulse Oximetry 95 95 95 07/08/20 12:00 07/08/20 13:00 07/08/20 14:00 Temperature 100.4 F H 100.4 F H 100.3 F H Pulse Rate 108 H Pulse Rate [Apical] 126 H 122 H 123 H Pulse Rate [Right Radial] Respiratory Rate 29 H 29 H 24 Blood Pressure [Right Arm] 104/77 L 101/76 L 122/76 02 Sat by Pulse Oximetry 95 94 L 94 L 07/08/20 14:15 07/08/20 14:59 07/08/20 16:00 Temperature 100.9 F H 101.0 F H Pulse Rate 127 H 129 H Pulse Rate [Apical] 127 H 110 H Pulse Rate [Right Radial] Respiratory Rate 28 H 29 H 26 H Blood Pressure [Right Arm] 118/77 133/83 02 Sat by Pulse Oximetry 94 L 94 L 95 07/08/20 17:00 07/08/20 17:57 07/08/20 18:00 Temperature 100.8 F H 100.7 F H Pulse Rate Pulse Rate [Apical] 120 H 109 H Pulse Rate [Right Radial] Respiratory Rate 26 H 28 H 27 H Blood Pressure [Right Arm] 95/72 L 126/77 02 Sat by Pulse Oximetry 95 96 96 07/08/20 19:00 07/08/20 20:00 07/08/20 20:29 Temperature 100.9 F H 98.5 F Pulse Rate 120 H 116 H Pulse Rate [Apical] 111 H 115 H Pulse Rate [Right Radial] 102 H Respiratory Rate 26 H 22 Blood Pressure [Right Arm] 115/62 104/81 L 02 Sat by Pulse Oximetry 95 99 07/08/20 21:00 07/08/20 22:00 07/08/20 22:03 Temperature 98.6 F 98.5 F Pulse Rate Pulse Rate [Apical] 103 H 100 H Pulse Rate [Right Radial] Respiratory Rate 22 22 27 H Blood Pressure [Right Arm] 125/76 118/87 02 Sat by Pulse Oximetry 95 97 95 07/08/20 22:43 07/08/20 23:00 07/09/20 00:00 Temperature 98.4 F 100.4 F H Pulse Rate 100 H Pulse Rate [Apical] 94 H 96 H Pulse Rate [Right Radial] Respiratory Rate 23 22 Blood Pressure [Right Arm] 105/57 L 9
--- NOTE | 2020-07-09 09:15 | CA_ITS ---
APPROVED REPORT Bilateral Lower Extremity Venous Study for DVT. Legal Clerk: Piedad Jackson RVT Indications Lower Extremity Edema: Bilateral Swelling / Hypoxia,COVID,ELEVATED D-DIMER,LT BKA Risk Factors Immobility Bed Rest Vein Imaging CFV (R): compressive, spontaneous, phasic, augmentation FEM (R): compressive, spontaneous, phasic, augmentation POP (R): compressive, spontaneous, phasic, augmentation PTV (R): Compressible GSV (R): Compressible Peroneals (R):Compressible GAS (R): Compressible CFV (L): compressive, spontaneous, phasic, augmentation FEM (L): compressive, spontaneous, phasic, augmentation POP (L): compressive, spontaneous, phasic, augmentation PTV (L): Compressible GSV (L): Compressible Peroneals (L):Compressible GAS (L): Compressible Findings Study suggests no evidence of DVT of the bilateral lower extremites. Study suggests no evidence of SVT of the bilateral lower extremites. 4.1 X 2.1 cm lymph node seen in the left groin. Conclusion Study suggests no evidence of DVT of the bilateral lower extremites. Study suggests no evidence of SVT of the bilateral lower extremites. 4.1 X 2.1 cm lymph node seen in the left groin. Electronically signed by : Michele Sheth MD 07/09/2020 17:43:12
--- NOTE | 2020-07-09 10:27 | HMH.PULMPN ---
Internal Medicine - PN: Subj *Date: 07/09/20 *Time: 14:33 Interval history: No acute respiratory events overnight. Exam - Constitutional Constitutional:: no acute distress, comfortable - HENMT Exam HENMT: normocephalic, atraumatic - Eye Exam Eyes:: eyelids normal, normal conjunctiva - Neck Exam Neck:: thyroid normal, no lymphadenopathy - Respiratory Exam Comments: Intubated and sedated. Appears comfortable. Bilateral mild coarse breath sounds - Cardiovascular Exam Cardiac:: S1, S2 - GI Exam GI:: soft, no hepatosplenomegaly - Skin Exam Skin: warm, no rash - Neurological Exam Intubated and sedated. - Extremities Exam Extremities: no cyanosis, no clubbing Assessment and Plan (1) Pneumonia due to COVID-19 virus Status: Acute Category: Medical Code(s): U07.1 - COVID-19; J12.82 - Pneumonia due to coronavirus disease 2019 (2) Respiratory failure with hypoxia Status: Acute Qualifiers: Chronicity: acute Qualified Code(s): J96.01 - Acute respiratory failure with hypoxia Category: Medical Code(s): J96.91 - Respiratory failure, unspecified with hypoxia (3) CAD (coronary artery disease), [place] coronary artery Status: Chronic Qualifiers: [place] vs. transplanted heart: [place] heart Associated angina: without angina Qualified Code(s): I25.10 - Atherosclerotic heart disease of [place] coronary artery without angina pectoris Category: Medical Code(s): I25.10 - Atherosclerotic heart disease of [place] coronary artery without angina pectoris (4) DM2 (diabetes mellitus, type 2) Status: Chronic Qualifiers: Diabetes mellitus skilled nursing insulin use: without termite treater use Diabetes mellitus complication status: without complication Qualified Code(s): E11.9 - Type 2 diabetes mellitus without complications Category: Medical Code(s): E11.9 - Type 2 diabetes mellitus without complications (5) Tachycardia Status: Acute Category: Medical Code(s): R00.0 - Tachycardia, unspecified - Assessment and plan all Dx Assessment and Plan for all problems:: #COVID-19 pneumonia: #Acute hypoxic respiratory failure requiring mechanical ventilation: 69-year-old no prior respiratory complaints never smoker with recent diagnosis of COVID-19 present with worsening respiratory failure cough and productive phlegm. CT showed bilateral diffuse pulmonary infiltrates. No evidence of acute pulmonary embolism. Patient respiratory status gradually worsened throughout his hospital course with increasing oxygen requirements to BiPAP,. Patient was initially DNR/DNI change his CODE STATUS to full code given his worsening respiratory status and severe respiratory distress patient was eventually intubated on December 03, 2020. Patient's respiratory status since intubation remained stable. Interval update: Patient continued to receive Zosyn levofloxacin remdesivir dexamethasone, discontinued vancomycin and azithromycin. Respiratory status remained stable. D-dimer elevated more than 8 which is within normal limits prior, however bilateral lower extremity Doppler did not show any evidence of DVT. Chest x-ray stable/slightly improved, ABG significantly improved, will wean his mechanical ventilator settings to PEEP of 10 and FiO2 of 60% Hemodynamically stable. Renal function stable. Net negative volume status. Plan: -Continue Zosyn and levofloxacin to complete a 10-day course - Continue mechanical ventilation with lung protective strategy, PEEP decreased to 10 FiO2 decreased to 60 - Continue dexamethasone and remdesivir for COVID-19 pneumonia - DuoNebs every 6 hours scheduled - Continue PPI and DVT prophylaxis Total critical care time spent on this patient is 35 minutes managing acute hypoxic respiratory failure needing mechanical ventilation. This time spent include reviewing test results including interpreting chest x-rays, labs and arterial blood gas, optimizing the ventilator settings,formulating pl
[2020-07-09 11:05] LABS: VBG Base Excess -0.7 mmol/L (-2.4-2.3); VBG HCO3 24.3 mmol/L (23-30); VBG Oxygen Saturation 99.1 % (50-70); VBG PCO2 40.9 mmol/L (35-51); VBG PH 7.39 mmol/L (7.31-7.41); VBG PO2 177.2 mmol/L (28-40); VBG Total CO2 25.5 mmol/L (23-27)
[2020-07-09 11:12] LABS: POC Glucose,Bedside 254 (70-110)
[2020-07-09 16:01] LABS: POC Glucose,Bedside 247 (70-110)
[2020-07-09 18:01] LABS: Basophils # 0.1 K/mm3 (0-0.2); Basophils % 0.4 % (0.1-2.0); Eosinophils # 0.1 K/mm3 (0.0-0.4); Eosinophils % 0.5 % (0.1-12.0); Hematocrit 47.1 % (42.0-52.0); Lymphocytes # 0.8 K/mm3 (0.7-4.5); Lymphocytes % 3.5 % (10-50); Mean Corpuscular HGB Conc 31.9 g/dL (31.8-35.4); Mean Corpuscular Hemoglobin 31.2 pg (27.0-31.2); Mean Corpuscular Volume 97.8 fl (80-94); Mean Platelet Volume 8.4 fl (7.4-10.4); Monocytes # 1.1 K/mm3 (0.1-1.0); Monocytes % 4.7 % (1.7-9.3); Neutrophils # 20.5 K/mm3 (1.8-7.8); Neutrophils % 90.9 % (37.0-80.0); Platelet Count 225 K/mm3 (142-424); Red Blood Count 4.81 M/mm3 (4.60-6.20); Red Cell Distribution Width 13.1 % (11.5-17.5); White Blood Count 22.6 K/mm3 (4.8-10.8)
[2020-07-09 18:07] LABS: MANUAL DIFFERENTIAL MANUAL DIFFERENTIAL (MANUAL DIFF)
[2020-07-09 18:17] LABS: Chloride 108 mmol/L (98-107); Potassium 4.7 mmoL/L (3.5-5.1); Sodium 144 mmol/L (136-145)
[2020-07-09 18:20] LABS: Anion Gap 10.7 mEq/L (5-15); Blood Urea Nitrogen 63 mg/dl (9-20); Carbon Dioxide 30 mmol/L (22.0-30.0); Creatinine Clearance Estimated 83 mL/min (50-200); Estimated Glomerular Filt Rate 74 ml/min (>60); GFR (African American) 90 ML/MIN (>60)
[2020-07-09 18:21] LABS: Calcium 8.3 mg/dl (8.4-10.2); Glucose 344 mg/dl (74-100)
[2020-07-09 18:23] LABS: Occult Blood,Stool Positive (Negative)
--- NOTE | 2020-07-09 19:44 | PC.NURSE ---
Pt remains tachycardic throughout shift. Dr Chance called three times this shift, see provider notifications. Pt also treated for fever w/ tylenol per AUG. Ice packs and cool wash cloth applied as well. Remains on [facility] vent, settings: AC 60%, 10, 24, 480. Changes made to vent @ [address] Myles. Thick white secretions noted w/ suctioning this shift. Oral care peformed Q2H. Lungs diminished throughout. Abdomen soft, non-tender w/ active BS in all quads. OGT @ 65 cm. Bolus TF admin per weed cutter's orders w/ okay from Dr. Chance. Residuals @ checks minimal. Pt did have a large tarry stool this shift, Occult stool positive. Edema noted to bilat hands. Skin intact. L BKA noted. Goncalves cath to drain at bedside w/ clear yellow urine noted. Pt turned and repositioned Q2H. Remains on Fentanyl and Versed, see MAR. Currently lying in bed w/ eyes closed. Report given to Deni Gutiérrez RN.
[2020-07-09 20:02] LABS: POC Glucose,Bedside 296 (70-110)
[2020-07-09 20:33] LABS: Hypochromasia 1+; Lymphocytes % 5 % (10-50); Monocytes % 5 % (2-9); Neutrophils % 90 % (42-76); Platelet Estimate Normal; RBC Morphology Normal; Total Cells Counted 100
--- NOTE | 2020-07-09 22:06 | PC.NURSE ---
He is intubated and sedated. Vent settings are as follows: AC mode, TV 480, R 26, PEEP 10, FiO2 60%. He is being turned and repositioned q 2 hours. HOB elevated 30 degrees. He has a left BKA. Voiding per f/c. Urine is yellow, clear. Ambu bag is at the bedside. Small amounts of thick, whitish colored secretions suctioned via the ETT tube. 40mL of residual noted at 2000. Tube feeding given.
[2020-07-10] VITALS (30 sets, daily range): BP systolic 87–137; BP diastolic 59–90; PULSE 98–136; RESP 17–29; TEMP 36.7–38.1; O2SAT 90–99; BMI 24.2
--- NOTE | 2020-07-10 03:49 | PC.NURSE ---
Complete bed bath given. He was incontinent of dark brown loose stool that has a foul odor. His coccyx is reddened but blanchable. Starting to breakdown. DSG placed on coccyx to try and help prevent further breakdown. Continues to be turned and repositioned. Large white colored mucous suctioned from mouth. Oral care given.
[2020-07-10 04:41] LABS: POC Glucose,Bedside 200 (70-110)
--- NOTE | 2020-07-10 05:00 | XR_ITS ---
PROCEDURE: XR CHEST PORTABLE CLINICAL HISTORY: Pt intubated. Pneumonia COMPARISON: CT CT ANGIO CHEST from 06/28/2020 CR XR CHEST PORTABLE from 07/06/2020 CR XR CHEST PORTABLE from 07/08/2020 CR XR CHEST PORTABLE from 07/09/2020 FINDINGS: Endotracheal tube tip is in good position 4 cm above the pj. Nasogastric tube tip in the region of the body of the stomach. Diffuse bilateral alveolar opacification consistent with pneumonia which appears slightly worse. Low lung volumes . No acute bony abnormalities. IMPRESSION: Endotracheal tube and nasogastric tube in good position. Bilateral pneumonia slightly worse Dictated by: Michele Sheth MD 07/10/2020 05:47 Michele Sheth MD in [place] 07/10/2020 05:47
[2020-07-10 07:03] LABS: ABG Base Excess 2.3 mmol/L (-2.4-2.3); ABG HCO3 27.6 mmhg (22.0-26.0); ABG Oxygen Saturation 94 % (90-100); ABG PCO2 48.9 mmhg (35.0-45.0); ABG PH 7.37 mmol/L (7.35-7.45); ABG PO2 71.7 mmhg (80-100); ABG TCO2 29.1 mmhg (23-27)
[2020-07-10 07:04] LABS: Allen's Test ACCEPTABLE; Oxygen 60 %; PEEP 10; Source R RADIAL; Tidal Volume 480; Vent Rate 24
--- NOTE | 2020-07-10 08:00 | PC.NURSE ---
gastric residual 0mL.
--- NOTE | 2020-07-10 08:57 | HMH.ACPN2 ---
Internal Medicine - PN: Subj *Date: 07/10/20 *Time: 09:25 Interval history: No new issues noted overnight Exam Vital signs and Labs for Last 24 Hours: Temp Pulse Resp BP Pulse Ox 99.6 F 134 H 25 H 133/83 99 07/10/20 08:00 07/10/20 08:00 07/10/20 08:00 07/10/20 08:00 07/10/20 08:00 Laboratory Results - last 24 hr 07/09/20 08:56: VBG pH 7.39, VBG pCO2 40.9, VBG pO2 177.2 H, VBG HCO3 24.3, VBG Total CO2 25.5, VBG O2 Saturation 99.1 H, VBG Base Excess -0.7 07/09/20 10:59: POC Glucose 254 H 07/09/20 15:52: POC Glucose 247 H 07/09/20 17:40: WBC 22.6 H* D, RBC 4.81, Hgb 15.0, Hct 47.1, MCV 97.8 H, MCH 31.2, MCHC 31.9, RDW 13.1, Plt Count 225, MPV 8.4, Neut % (Auto) 90.9 H, Lymph % (Auto) 3.5 L, [place] % (Auto) 4.7, Eos % (Auto) 0.5, Baso % (Auto) 0.4, Neut # (Auto) 20.5 H, Lymph # (Auto) 0.8, [place] # (Auto) 1.1 H, Eos # (Auto) 0.1, Baso # (Auto) 0.1, Total Counted 100, Neutrophils % (Manual) 90 H, Lymphocytes % (Manual) 5 L, Monocytes % (Manual) 5, Platelet Estimate Normal, RBC Morphology Normal, Hypochromasia 1+ 07/09/20 17:40: Sodium 144, Potassium 4.7, Chloride 108 H, Carbon Dioxide 30, Anion Gap 10.7, BUN 63 H, Creatinine 1.00, Estimated Creat Clear 83, Estimated GFR 74, Est GFR ( Amer) 90, Glucose 344 H, Calcium 8.3 L 07/09/20 17:40: Stool Occult Blood Positive A 07/09/20 19:48: POC Glucose 296 H 07/10/20 04:31: POC Glucose 200 H 07/10/20 07:00: Specimen Source R radial, O2 % 60, ABG pH 7.37, ABG pCO2 48.9 H, ABG pO2 71.7 L, ABG HCO3 27.6 H, ABG Total CO2 29.1 H, ABG O2 Saturation 94, ABG Base Excess 2.3, Michele Test Acceptable, Vent Rate 24, Tidal Volume 480, PEEP 10 Vital Signs - 24 hr 07/09/20 09:00 07/09/20 09:45 07/09/20 10:00 Temperature 100.3 F H 99.5 F Pulse Rate Pulse Rate [Apical] 137 H 126 H Respiratory Rate 22 21 Blood Pressure [Right Arm] 121/81 123/78 02 Sat by Pulse Oximetry 94 L 95 97 07/09/20 11:00 07/09/20 12:00 07/09/20 12:40 Temperature 99.4 F 98.2 F Pulse Rate 133 H Pulse Rate [Apical] 132 H 136 H Respiratory Rate 27 H 26 H 27 H Blood Pressure [Right Arm] 130/87 127/86 02 Sat by Pulse Oximetry 97 99 99 07/09/20 12:45 07/09/20 13:00 07/09/20 14:00 Temperature 98.7 F 98.7 F Pulse Rate 127 H Pulse Rate [Apical] 114 H 115 H Respiratory Rate 24 19 21 Blood Pressure [Right Arm] 93/67 L 98/58 L 02 Sat by Pulse Oximetry 70 L 100 100 07/09/20 15:00 07/09/20 16:00 07/09/20 16:03 Temperature Pulse Rate 126 H Pulse Rate [Apical] 110 H 124 H Respiratory Rate 27 H 26 H 26 H Blood Pressure [Right Arm] 94/62 L 132/82 02 Sat by Pulse Oximetry 100 98 07/09/20 16:04 07/09/20 17:00 07/09/20 18:00 Temperature 102 F H Pulse Rate Pulse Rate [Apical] 140 H 117 H Respiratory Rate 26 H 27 H Blood Pressure [Right Arm] 136/82 133/82 02 Sat by Pulse Oximetry 97 92 L 95 07/09/20 18:05 07/09/20 19:00 07/09/20 19:03 Temperature 100.1 F H Pulse Rate 116 H Pulse Rate [Apical] 127 H Respiratory Rate 25 H 27 H Blood Pressure [Right Arm] 139/84 02 Sat by Pulse Oximetry 96 97 07/09/20 20:00 07/09/20 21:00 07/09/20 22:00 Temperature 99.9 F H 99.0 F Pulse Rate 130 H Pulse Rate [Apical] 125 H 105 H 101 H Respiratory Rate 26 H 26 H Blood Pressure [Right Arm] 131/84 104/62 L 128/72 02 Sat by Pulse Oximetry 99 96 98 07/09/20 23:00 07/10/20 00:00 07/10/20 01:00 Temperature 99.2 F 99.6 F Pulse Rate 110 H Pulse Rate [Apical] 109 H 105 H 109 H Respiratory Rate 17 Blood Pressure [Right Arm] 128/87 101/67 L 105/64 L 02 Sat by Pulse Oximetry 97 97 94 L 07/10/20 01:45 07/10/20 02:00 07/10/20 03:00 Temperature 98.4 F Pulse Rate Pulse Rate [Apical] 105 H 107 H Respiratory Rate 26 H 27 H 26 H Blood Pressure [Right Arm] 103/67 L 123/77 02 Sat by Pulse Oximetry 99 97 93 L 07/10/20 03:57 07/10/20 04:00 07/10/20 05:00 Temperature Pulse Rate 100 H Pulse Rate [Apical] 108 H 109 H 126 H Respiratory Rate 26 H Blood Pre
--- NOTE | 2020-07-10 09:35 | DIET.NUTRFU ---
TF changed from bolus feeds to continuous. TF will provide same total amount as previous bolus feeds with a goal rate of 54mL/hr. Blood glucose running between 200-350 with current bolus feeds. Pt has now had a bowel movement. Will continue to monitor and adjust TF as needed.
--- NOTE | 2020-07-10 10:00 | PC.NURSE ---
tubefeed ([facility]) started @ 25mL/hr. Goal rate is 54mL/hr.
--- NOTE | 2020-07-10 10:41 | HMH.ACPN ---
Internal Medicine - PN: Subj *Date: 07/10/20 *Time: 10:41 Exam Vital signs and Labs for Last 24 Hours: Temp Pulse Resp BP Pulse Ox 99.3 F 111 H 29 H 111/77 95 07/10/20 10:00 07/10/20 10:00 07/10/20 10:20 07/10/20 10:00 07/10/20 10:20 Laboratory Results - last 24 hr 07/09/20 08:56: VBG pH 7.39, VBG pCO2 40.9, VBG pO2 177.2 H, VBG HCO3 24.3, VBG Total CO2 25.5, VBG O2 Saturation 99.1 H, VBG Base Excess -0.7 07/09/20 10:59: POC Glucose 254 H 07/09/20 15:52: POC Glucose 247 H 07/09/20 17:40: WBC 22.6 H* D, RBC 4.81, Hgb 15.0, Hct 47.1, MCV 97.8 H, MCH 31.2, MCHC 31.9, RDW 13.1, Plt Count 225, MPV 8.4, Neut % (Auto) 90.9 H, Lymph % (Auto) 3.5 L, [place] % (Auto) 4.7, Eos % (Auto) 0.5, Baso % (Auto) 0.4, Neut # (Auto) 20.5 H, Lymph # (Auto) 0.8, [place] # (Auto) 1.1 H, Eos # (Auto) 0.1, Baso # (Auto) 0.1, Total Counted 100, Neutrophils % (Manual) 90 H, Lymphocytes % (Manual) 5 L, Monocytes % (Manual) 5, Platelet Estimate Normal, RBC Morphology Normal, Hypochromasia 1+ 07/09/20 17:40: Sodium 144, Potassium 4.7, Chloride 108 H, Carbon Dioxide 30, Anion Gap 10.7, BUN 63 H, Creatinine 1.00, Estimated Creat Clear 83, Estimated GFR 74, Est GFR ( Amer) 90, Glucose 344 H, Calcium 8.3 L 07/09/20 17:40: Stool Occult Blood Positive A 07/09/20 19:48: POC Glucose 296 H 07/10/20 04:31: POC Glucose 200 H 07/10/20 07:00: Specimen Source R radial, O2 % 60, ABG pH 7.37, ABG pCO2 48.9 H, ABG pO2 71.7 L, ABG HCO3 27.6 H, ABG Total CO2 29.1 H, ABG O2 Saturation 94, ABG Base Excess 2.3, Michele Test Acceptable, Vent Rate 24, Tidal Volume 480, PEEP 10 I & O for Last 24 hours: Intake & Output 07/07/20 07/08/20 07/09/20 07/10/20 23:59 23:59 23:59 23:59 Intake Total 2458.958 / 2472.958 2035.667 / 2049.667 1705.750 / 1719.750 152.25 / 152.25 Output Total 4215 / 4250 3493 / 3568 2575 / 2675 1375 / 1375 Balance -1756.042 / -1777.042 -1457.333 / -1518.333 -869.250 / -955.250 -1222.75 / -1222.75 Weight 84.6 kg 84.9 kg 83.4 kg 85.5 kg Assessment and Plan (1) Pneumonia due to COVID-19 virus Status: Acute Category: Medical Code(s): U07.1 - COVID-19; J12.82 - Pneumonia due to coronavirus disease 2019 (2) Respiratory failure with hypoxia Status: Acute Qualifiers: Chronicity: acute Qualified Code(s): J96.01 - Acute respiratory failure with hypoxia Category: Medical Code(s): J96.91 - Respiratory failure, unspecified with hypoxia (3) CAD (coronary artery disease), [place] coronary artery Status: Chronic Qualifiers: [place] vs. transplanted heart: [place] heart Associated angina: without angina Qualified Code(s): I25.10 - Atherosclerotic heart disease of [place] coronary artery without angina pectoris Category: Medical Code(s): I25.10 - Atherosclerotic heart disease of [place] coronary artery without angina pectoris (4) DM2 (diabetes mellitus, type 2) Status: Chronic Qualifiers: Diabetes mellitus medical terminologist insulin use: without medical terminologist use Diabetes mellitus complication status: without complication Qualified Code(s): E11.9 - Type 2 diabetes mellitus without complications Category: Medical Code(s): E11.9 - Type 2 diabetes mellitus without complications (5) Tachycardia Status: Acute Category: Medical Code(s): R00.0 - Tachycardia, unspecified The patient's infection will respond to the chosen ABx?: Yes Is the patient receiving the right drug, dose, and route?: Yes Could a more targeted ABx be ordered?: No (CONTINUE TO FINISH OUT [address] ABREU WITH NEFTALI)
[2020-07-10 11:01] LABS: Basophils # 0.2 K/mm3 (0-0.2); Basophils % 0.6 % (0.1-2.0); Eosinophils # 0.1 K/mm3 (0.0-0.4); Eosinophils % 0.4 % (0.1-12.0); Hemoglobin 14.7 g/dL (14.1-18.0); Lymphocytes # 0.6 K/mm3 (0.7-4.5); Lymphocytes % 2.5 % (10-50); Mean Corpuscular HGB Conc 31.9 g/dL (31.8-35.4); Mean Corpuscular Volume 97.3 fl (80-94); Mean Platelet Volume 8.8 fl (7.4-10.4); Monocytes # 1.2 K/mm3 (0.1-1.0); Neutrophils # 22.9 K/mm3 (1.8-7.8); Neutrophils % 91.6 % (37.0-80.0); Platelet Count 205 K/mm3 (142-424); Red Blood Count 4.73 M/mm3 (4.60-6.20)
[2020-07-10 11:08] LABS: MANUAL DIFFERENTIAL MANUAL DIFFERENTIAL (MANUAL DIFF)
[2020-07-10 11:10] LABS: Chloride 105 mmol/L (98-107)
[2020-07-10 11:11] LABS: Potassium 5.2 mmoL/L (3.5-5.1); Sodium 139 mmol/L (136-145)
[2020-07-10 11:13] LABS: Alanine Aminotransferase 48 U/L (12-78); Alkaline Phosphatase 89 U/L (38-126); Anion Gap 8.2 mEq/L (5-15); Aspartate Amino Transferase 94 U/L (17-59); Bilirubin,Total 0.7 mg/dl (0.2-1.3); Blood Urea Nitrogen 54 mg/dl (9-20); Carbon Dioxide 31 mmol/L (22.0-30.0); Creatinine Clearance Estimated 86 mL/min (50-200); Estimated Glomerular Filt Rate 96 ml/min (>60); GFR (African American) 116 ML/MIN (>60)
[2020-07-10 11:14] LABS: Albumin Level 2.6 g/dl (3.5-5.0); Albumin/Globulin Ratio 0.8 (1.1-1.8); Calcium 8.2 mg/dl (8.4-10.2); Globulin 3.2 g/dL (1.3-3.2); Glucose 341 mg/dl (74-100); Total Protein,Serum 5.8 g/dl (6.3-8.2)
--- NOTE | 2020-07-10 12:00 | PC.NURSE ---
gastric residual 0mL.
[2020-07-10 13:06] LABS: Lymphocytes % 6 % (10-50); Monocytes % 4 % (2-9); Neutrophils % 90 % (42-76); Total Cells Counted 100
[2020-07-10 13:07] LABS: Platelet Estimate Normal; RBC Morphology Normal
--- NOTE | 2020-07-10 15:16 | HMH.PULMPN ---
Internal Medicine - PN: Subj *Date: 07/10/20 *Time: 15:16 Interval history: No acute respiratory events overnight, patient respiratory status improving Exam - Constitutional Constitutional:: no acute distress, comfortable - HENMT Exam HENMT: atraumatic - Eye Exam Eyes:: eyelids normal, normal conjunctiva - Neck Exam Neck:: normal visual inspection - Respiratory Exam Comments: Bilateral mild coarse with significantly improved breath sounds. Coarse breath sounds on the right lower lung loja. No audible wheezing heard. - Cardiovascular Exam Cardiac:: S1, S2 - GI Exam GI:: soft - Skin Exam Skin: warm, no rash - Neurological Exam Intubated and sedated. - Extremities Exam Extremities: no cyanosis, no clubbing, edema Assessment and Plan (1) Pneumonia due to COVID-19 virus Status: Acute Category: Medical Code(s): U07.1 - COVID-19; J12.82 - Pneumonia due to coronavirus disease 2019 (2) Respiratory failure with hypoxia Status: Acute Qualifiers: Chronicity: acute Qualified Code(s): J96.01 - Acute respiratory failure with hypoxia Category: Medical Code(s): J96.91 - Respiratory failure, unspecified with hypoxia (3) CAD (coronary artery disease), [place] coronary artery Status: Chronic Qualifiers: [place] vs. transplanted heart: [place] heart Associated angina: without angina Qualified Code(s): I25.10 - Atherosclerotic heart disease of [place] coronary artery without angina pectoris Category: Medical Code(s): I25.10 - Atherosclerotic heart disease of [place] coronary artery without angina pectoris (4) DM2 (diabetes mellitus, type 2) Status: Chronic Qualifiers: Diabetes mellitus correction insulin use: without composition mixer use Diabetes mellitus complication status: without complication Qualified Code(s): E11.9 - Type 2 diabetes mellitus without complications Category: Medical Code(s): E11.9 - Type 2 diabetes mellitus without complications (5) Tachycardia Status: Acute Category: Medical Code(s): R00.0 - Tachycardia, unspecified - Assessment and plan all Dx Assessment and Plan for all problems:: #COVID-19 pneumonia: #Acute hypoxic respiratory failure requiring mechanical ventilation: 69-year-old no prior respiratory complaints never smoker with recent diagnosis of COVID-19 present with worsening respiratory failure cough and productive phlegm. CT showed bilateral diffuse pulmonary infiltrates. No evidence of acute pulmonary embolism. Patient respiratory status gradually worsened throughout his hospital course with increasing oxygen requirements to BiPAP,. Patient was initially DNR/DNI change his CODE STATUS to full code given his worsening respiratory status and severe respiratory distress patient was eventually intubated on December 03, 2020. Patient respiratory status has been gradually improving since admission. Patient received 1 unit of convalescent plasma per repeat D-dimer during hospital course elevated at 8, however repeat lower extremity Doppler negative so opted to continue with prophylactic anticoagulation. Interval update: Respiratory status remained stable. D-dimer elevated more than 8 which is within normal limits prior, however bilateral lower extremity Doppler did not show any evidence of DVT. Chest x-ray relatively unchanged, bilateral groundglass opacities lower lobes more than upper lobes. ABG showed a PO2 of 71.7. Mild lower extremity edema noted. Patient given a dose of Lasix 40 mg IV today. Leukocytosis slightly worsened from yesterday at 25.0. Renal function stable, mild hyperkalemia K of 5.2. T-max 99.6 in the last 24 hours. Net negative volume status. Hemodynamically stable. His blood culture, sputum culture and nasal MRSA cultures from 06 July all resulted negative. Plan: - 40 IV Lasix once - Discontinue Zosyn as patient completed a total of 10-day course - Continue mechanical ventilation with lung protective strategy, PEEP dec
--- NOTE | 2020-07-10 16:00 | PC.NURSE ---
gastric residual 0mL. Tubefeed rate increased to 35mL/hr.
--- NOTE | 2020-07-10 17:45 | PC.NURSE ---
DECREASED PEEP FROM 10 TO 8 PER ANNANGI ORDER. PATIENTS SATS MAINTAINED ABOVE 90 AT THIS TIME. PT TOLERATING CHANGE WELL.
[2020-07-11] VITALS (30 sets, daily range): BP systolic 91–152; BP diastolic 63–91; PULSE 70–140; RESP 17–30; TEMP 36–37.3; O2SAT 90–118; BMI 233779.3
--- NOTE | 2020-07-11 00:24 | PC.NURSE ---
2000 pt turned to left side at a 40 degree angle
--- NOTE | 2020-07-11 00:25 | PC.NURSE ---
2200 pt turned to right side at a 40 degree angle for maximum pulmonary globalization of secretions
--- NOTE | 2020-07-11 00:26 | PC.NURSE ---
0000 pt turned right side at a 40 degree angle for maximum pulmonary globalization of secretions, pt had zero residual and tube feeding turned up to 45 ml/hr.
--- NOTE | 2020-07-11 05:11 | XR_ITS ---
PROCEDURE: XR CHEST PORTABLE CLINICAL HISTORY: resp failure Covid19 pneumonia COMPARISON: CT CT ANGIO CHEST from 06/28/2020 CR XR CHEST PORTABLE from 07/08/2020 CR XR CHEST PORTABLE from 07/09/2020 CR XR CHEST PORTABLE from 07/10/2020 FINDINGS: Follow up endotracheal tube tip is in good position 4 cm above the pj. Nasogastric tube tip is not visible but is below the GE junction. There remains diffuse bilateral pneumonia which may be slightly improved on the left. This could also be related to technique. No evidence of pneumothorax. IMPRESSION: Endotracheal tube and nasogastric tube in good position. Diffuse bilateral pneumonia slightly improved on the left Dictated by: Michele Sheth MD 07/11/2020 06:08 Michele Sheth MD in [place] 07/11/2020 06:08
--- NOTE | 2020-07-11 06:36 | PC.NURSE ---
0200 pt turned to right side at a 40 degree angle to globalize secretions.
--- NOTE | 2020-07-11 06:38 | PC.NURSE ---
0400 pt turned to right side at a 40 degree angle to globalize secretions.
--- NOTE | 2020-07-11 06:39 | PC.NURSE ---
0600 pt turned supine for optimal position for x-ray.
--- NOTE | 2020-07-11 06:40 | PC.NURSE ---
shift summary pts sats remained 88-94% while on the vent with a rate ranging from 24-30. pts lung sounds were clear but diminished especially on his left side.pts sats would drop to 87-90% while being turned to left side but would recover in less then 5 minutes. pt remained NSR or sinus tac on the desk monitor. pt has 3+ pitting edema in hius upper extremities with some weeping. pt has a humphrey in place with clear straw colored urine. pt had 4 black and mucous like in texture BMs of copious amounts. pts tube feeding was increased at 0000 to 45mL/hr residuals remain less than 5Mls or none at all. pt remains sedated with versed at 0.1 and fentanyl at 60.
[2020-07-11 06:52] LABS: ABG Base Excess 3.1 mmol/L (-2.4-2.3); ABG HCO3 28.3 mmhg (22.0-26.0); ABG Oxygen Saturation 94 % (90-100); ABG PCO2 49.6 mmhg (35.0-45.0); ABG PH 7.37 mmol/L (7.35-7.45); ABG PO2 71.8 mmhg (80-100); ABG TCO2 29.8 mmhg (23-27); Oxygen 50 %
[2020-07-11 06:53] LABS: Allen's Test acceptable; PEEP 8; Tidal Volume 480; Vent Rate 24
[2020-07-11 07:51] LABS: Basophils # 0.1 K/mm3 (0-0.2); Basophils % 0.5 % (0.1-2.0); Eosinophils # 0.2 K/mm3 (0.0-0.4); Eosinophils % 0.7 % (0.1-12.0); Hematocrit 44.5 % (42.0-52.0); Hemoglobin 14.8 g/dL (14.1-18.0); Lymphocytes # 1.3 K/mm3 (0.7-4.5); Lymphocytes % 5.1 % (10-50); Mean Corpuscular HGB Conc 33.3 g/dL (31.8-35.4); Mean Corpuscular Hemoglobin 31.8 pg (27.0-31.2); Mean Corpuscular Volume 95.7 fl (80-94); Mean Platelet Volume 9.9 fl (7.4-10.4); Monocytes # 1.2 K/mm3 (0.1-1.0); Monocytes % 4.7 % (1.7-9.3); Neutrophils # 22.2 K/mm3 (1.8-7.8); Neutrophils % 89.1 % (37.0-80.0); Platelet Count 195 K/mm3 (142-424); Red Blood Count 4.65 M/mm3 (4.60-6.20); Red Cell Distribution Width 13.1 % (11.5-17.5); White Blood Count 24.9 K/mm3 (4.8-10.8)
[2020-07-11 07:55] LABS: Alanine Aminotransferase 45 U/L (12-78); Albumin Level 2.8 g/dl (3.5-5.0); Albumin/Globulin Ratio 0.8 (1.1-1.8); Alkaline Phosphatase 98 U/L (38-126); Anion Gap 10.3 mEq/L (5-15); Aspartate Amino Transferase 78 U/L (17-59); Bilirubin,Total 0.7 mg/dl (0.2-1.3); Blood Urea Nitrogen 58 mg/dl (9-20); Calcium 8.4 mg/dl (8.4-10.2); Carbon Dioxide 32 mmol/L (22.0-30.0); Chloride 102 mmol/L (98-107); Creatinine Clearance Estimated 83 mL/min (50-200); Estimated Glomerular Filt Rate 74 ml/min (>60); GFR (African American) 90 ML/MIN (>60); Globulin 3.3 g/dL (1.3-3.2); Glucose 310 mg/dl (74-100); Potassium 4.3 mmoL/L (3.5-5.1); Sodium 140 mmol/L (136-145); Total Protein,Serum 6.1 g/dl (6.3-8.2)
[2020-07-11 08:03] LABS: MANUAL DIFFERENTIAL MANUAL DIFFERENTIAL (MANUAL DIFF)
--- NOTE | 2020-07-11 08:29 | HMH.ACPN2 ---
Internal Medicine - PN: Rey *Date: 07/11/20 *Time: 08:45 Interval history: No new issues reported overnight. Exam Vital signs and Labs for Last 24 Hours: Temp Pulse Resp BP Pulse Ox 98.4 F 132 H 26 H 118/82 94 L 07/11/20 06:00 07/11/20 06:40 07/11/20 06:35 07/11/20 06:00 07/11/20 06:00 Laboratory Results - last 24 hr 07/10/20 10:20: WBC 25.0 H*, RBC 4.73, Hgb 14.7, Hct 46.0, MCV 97.3 H, MCH 31.0, MCHC 31.9, RDW 13.0, Plt Count 205, MPV 8.8, Neut % (Auto) 91.6 H, Lymph % (Auto) 2.5 L, [place] % (Auto) 5.0, Eos % (Auto) 0.4, Baso % (Auto) 0.6, Neut # (Auto) 22.9 H, Lymph # (Auto) 0.6 L, [place] # (Auto) 1.2 H, Eos # (Auto) 0.1, Baso # (Auto) 0.2, Total Counted 100, Neutrophils % (Manual) 90 H, Lymphocytes % (Manual) 6 L, Monocytes % (Manual) 4, Platelet Estimate Normal, RBC Morphology Normal 07/10/20 10:20: Sodium 139, Potassium 5.2 H, Chloride 105, Carbon Dioxide 31 H, Anion Gap 8.2, BUN 54 H, Creatinine 0.80, Estimated Creat Clear 86, Estimated GFR 96, Est GFR ( Amer) 116 D, Glucose 341 H, Calcium 8.2 L, Total Bilirubin 0.7, AST 94 H D, ALT 48 D, Alkaline Phosphatase 89, Total Protein 5.8 L, Albumin 2.6 L, Globulin 3.2, Albumin/Globulin Ratio 0.8 L 07/11/20 05:11: Specimen Source r radial, O2 % 50, ABG pH 7.37, ABG pCO2 49.6 H, ABG pO2 71.8 L, ABG HCO3 28.3 H, ABG Total CO2 29.8 H, ABG O2 Saturation 94, ABG Base Excess 3.1 H, Michele Test acceptable, Vent Rate 24, Tidal Volume 480, PEEP 8 07/11/20 06:20: WBC 24.9 H*, RBC 4.65, Hgb 14.8, Hct 44.5, MCV 95.7 H, MCH 31.8 H, MCHC 33.3, RDW 13.1, Plt Count 195, MPV 9.9, Neut % (Auto) 89.1 H, Lymph % (Auto) 5.1 L, [place] % (Auto) 4.7, Eos % (Auto) 0.7, Baso % (Auto) 0.5, Neut # (Auto) 22.2 H, Lymph # (Auto) 1.3, [place] # (Auto) 1.2 H, Eos # (Auto) 0.2, Baso # (Auto) 0.1 07/11/20 06:20: Sodium 140, Potassium 4.3, Chloride 102, Carbon Dioxide 32 H, Anion Gap 10.3, BUN 58 H, Creatinine 1.00 D, Estimated Creat Clear 83, Estimated GFR 74, Est GFR ( Amer) 90 D, Glucose 310 H, Calcium 8.4, Total Bilirubin 0.7, AST 78 H, ALT 45, Alkaline Phosphatase 98, Total Protein 6.1 L, Albumin 2.8 L, Globulin 3.3 H, Albumin/Globulin Ratio 0.8 L Vital Signs - 24 hr 07/10/20 09:00 07/10/20 10:00 07/10/20 10:20 Temperature 99.6 F 99.3 F Pulse Rate Pulse Rate [Apical] 130 H 111 H Respiratory Rate 25 H 26 H 29 H Blood Pressure [Right Arm] 119/76 111/77 02 Sat by Pulse Oximetry 95 96 95 07/10/20 11:00 07/10/20 12:00 07/10/20 13:00 Temperature 99.2 F 99.1 F 99.6 F Pulse Rate 111 H Pulse Rate [Apical] 112 H 111 H 123 H Respiratory Rate 27 H 27 H 26 H Blood Pressure [Right Arm] 96/63 L 120/86 127/81 02 Sat by Pulse Oximetry 92 L 92 L 93 L 07/10/20 13:28 07/10/20 14:00 07/10/20 15:00 Temperature 99.8 F H 99.6 F Pulse Rate 124 H Pulse Rate [Apical] 110 H 112 H Respiratory Rate 29 H 27 H 26 H Blood Pressure [Right Arm] 87/59 L 95/64 L 02 Sat by Pulse Oximetry 91 L 93 L 93 L 07/10/20 16:00 07/10/20 17:00 07/10/20 17:35 Temperature 98.8 F 98.2 F Pulse Rate 113 H 136 H Pulse Rate [Apical] 115 H 124 H Respiratory Rate 26 H 24 26 H Blood Pressure [Right Arm] 101/67 L 128/90 02 Sat by Pulse Oximetry 94 L 95 92 L 07/10/20 18:00 07/10/20 19:00 07/10/20 20:00 Temperature 98.1 F 100.6 F H Pulse Rate 123 H Pulse Rate [Apical] 136 H 135 H 98 H Respiratory Rate 26 H 26 H 24 Blood Pressure [Right Arm] 137/82 133/82 110/80 02 Sat by Pulse Oximetry 93 L 91 L 92 L 07/10/20 21:00 07/10/20 22:00 07/10/20 23:00 Temperature 99.6 F 98.4 F 98.6 F Pulse Rate Pulse Rate [Apical] 98 H 117 H 116 H Respiratory Rate 26 H 24 26 H Blood Pressure [Right Arm] 105/71 L 108/74 L 134/89 02 Sat by Pulse Oximetry 90 L 93 L 92 L 07/11/20 00:00 07/11/20 01:00 07/11/20 02:00 Temperature 98.7 F 99.2 F 98.6 F Pulse Rate 102 H Pulse Rate [Apical] 114 H 118 H 120 H Respiratory Rate 26 H 30 H 27 H Blood Pressure [Right Arm] 139/85 110/78 115/79 02 Sat by Pulse Oximetry 94 L 94 L 92
[2020-07-11 09:41] LABS: Lymphocytes % 3 % (10-50); Monocytes % 5 % (2-9); Neutrophils % 92 % (42-76); Total Cells Counted 100
[2020-07-11 09:42] LABS: Platelet Estimate Normal; RBC Morphology Normal
--- NOTE | 2020-07-11 09:45 | PC.NURSE ---
decreased versed down to 0.08
[2020-07-11 10:51] LABS: POC Glucose,Bedside 292 (70-110)
[2020-07-11 10:51] LABS: POC Glucose,Bedside 327 (70-110)
[2020-07-11 10:51] LABS: POC Glucose,Bedside 285 (70-110)
[2020-07-11 10:51] LABS: POC Glucose,Bedside 302 (70-110)
[2020-07-11 11:19] LABS: POC Glucose,Bedside 394 (70-110)
--- NOTE | 2020-07-11 12:56 | DIET.NUTRFU ---
Good tolerance advancement tube feeds, switched from bolus to continuous yesterday. This morning's labs showed normalized K, stable BUN. Pt with continued increasing BG- has been trending up t/o stay, dont suspect continuous TF to be a major factor. Pt had a black stool yesterday, his first BM since admission. Weight loss of 6# past 24h. Pt is meeting energy, protein, fluid needs. No change to nutritional care plan in order at this time. Continuing to monitor.
[2020-07-11 16:28] LABS: POC Glucose,Bedside 379 (70-110)
--- NOTE | 2020-07-11 16:43 | HMH.PULMPN ---
Internal Medicine - PN: Subj *Date: 07/11/20 *Time: 16:43 Interval history: No acute respiratory event overnight. Exam - Constitutional Constitutional:: comfortable - Respiratory Exam Comments: Bilateral predominantly lower lobe coarse breath sounds unchanged from yesterday. Intubated and sedated, appears comfortable. - Cardiovascular Exam Cardiac:: S1, S2 - GI Exam GI:: soft, no hepatosplenomegaly - Skin Exam Skin: no rash, dry - Extremities Exam Extremities: no cyanosis, no clubbing, edema Assessment and Plan (1) Pneumonia due to COVID-19 virus Status: Acute Category: Medical Code(s): U07.1 - COVID-19; J12.82 - Pneumonia due to coronavirus disease 2019 (2) Respiratory failure with hypoxia Status: Acute Qualifiers: Chronicity: acute Qualified Code(s): J96.01 - Acute respiratory failure with hypoxia Category: Medical Code(s): J96.91 - Respiratory failure, unspecified with hypoxia (3) CAD (coronary artery disease), [place] coronary artery Status: Chronic Qualifiers: [place] vs. transplanted heart: [place] heart Associated angina: without angina Qualified Code(s): I25.10 - Atherosclerotic heart disease of [place] coronary artery without angina pectoris Category: Medical Code(s): I25.10 - Atherosclerotic heart disease of [place] coronary artery without angina pectoris (4) DM2 (diabetes mellitus, type 2) Status: Chronic Qualifiers: Diabetes mellitus exterminator helper termite insulin use: without exterminator helper termite use Diabetes mellitus complication status: without complication Qualified Code(s): E11.9 - Type 2 diabetes mellitus without complications Category: Medical Code(s): E11.9 - Type 2 diabetes mellitus without complications (5) Tachycardia Status: Acute Category: Medical Code(s): R00.0 - Tachycardia, unspecified - Assessment and plan all Dx Assessment and Plan for all problems:: #COVID-19 pneumonia: #Acute hypoxic respiratory failure requiring mechanical ventilation: 69-year-old no prior respiratory complaints never smoker with recent diagnosis of COVID-19 present with worsening respiratory failure cough and productive phlegm. CT showed bilateral diffuse pulmonary infiltrates. No evidence of acute pulmonary embolism. Patient respiratory status gradually worsened throughout his hospital course with increasing oxygen requirements to BiPAP,. Patient was initially DNR/DNI change his CODE STATUS to full code given his worsening respiratory status and severe respiratory distress patient was eventually intubated on December 03, 2020. Patient respiratory status has been gradually improving since admission. Patient received 1 unit of convalescent plasma per repeat D-dimer during hospital course elevated at 8, however repeat lower extremity Doppler negative so opted to continue with prophylactic anticoagulation. Interval update: Respiratory status remained stable., ABG this morning showed a PO2 of 71.8. Patient saturating 92 to 94%. Patient had SBT performed, eventually discontinued after 1 h. Patient also received a day Lasix of 40 mg once today given the appear volume overloaded. Auscultation with bilateral coarse breath sounds unchanged from yesterday, predominantly lower lobe coarse breath sounds. Zosyn was stopped today. Currently only receiving levofloxacin. Abdomen soft nondistended Hemodynamically stable. Creatinine stable. Intubated and sedated, appears comfortable. Plan: - 40 IV Lasix once -received - Continue mechanical ventilation with lung protective strategy, - Continue midazolam and fentanyl with a RASS goal of 1 to 2 on a CPOTgoal of less than or equal to 2 - Continue dexamethasone , completed 10-day course of remdesivir - DuoNebs every 6 hours scheduled - Continue PPI and DVT prophylaxis -Continue tube feeding Total critical care time spent on this patient is 35 minutes managing acute hypoxic respiratory failure needing mechanical ventilation. This time spent include revie
--- NOTE | 2020-07-11 18:16 | PC.NURSE ---
patient has had an okay day. heart rate has been elevated and reqiured a prn dose of metoprolol. remains sinus tach but not as high. currently in the 110-119 range. bp has tolerated well. decreased versed down to 0.06mg/kg/min. fentanyl remains at 60mcg/hr. did do okay on spontaneous breathing trial. was breathing about 20-24 a minute. after some sudden drop of respirations to 14-16 respiratory flipped back over to assist control. dressing placed on bottom to prevent breakdown. noted some darkening in coccyx, and small little bump on right buttock that may be start of blister. frequent turns done to keep patient off buttock. oral care provided on patient, some skin on tongue noted to peel back. one stool today that was dark and slightly tarry. no other signs of beeding. rass remains at about a -3, and cpot has remained 0. breathes over vent. vitals stable.
[2020-07-11 20:52] LABS: POC Glucose,Bedside 362 (70-110)
[2020-07-12] VITALS (34 sets, daily range): BP systolic 105–153; BP diastolic 66–95; PULSE 102–135; RESP 15–32; TEMP 36.6–37.9; O2SAT 89–95; BMI 237458.6
--- NOTE | 2020-07-12 02:39 | PC.NURSE ---
Right SHANIKA hose removed during bath for break. DSG changed on coccyx.
--- NOTE | 2020-07-12 05:00 | XR_ITS ---
PROCEDURE: XR CHEST PORTABLE CLINICAL HISTORY: Pt intubated Follow-up pneumonia COMPARISON: CT CT ANGIO CHEST from 06/28/2020 CR XR CHEST PORTABLE from 07/09/2020 CR XR CHEST PORTABLE from 07/10/2020 CR XR CHEST PORTABLE from 07/11/2020 FINDINGS: 5:20 a.m.. Endotracheal tube tip is in good position 4 cm above the pj. Nasogastric tube tip not visible on the image but below the GE junction. No change bilateral pneumonia No acute bony abnormalities. IMPRESSION: Endotracheal tube and nasogastric tube in good position. No change bilateral pneumonia Dictated by: Michele Sheth MD 07/12/2020 05:51 Michele Sheth MD in [facility] 07/12/2020 05:51
[2020-07-12 05:18] LABS: POC Glucose,Bedside 298 (70-110)
[2020-07-12 06:58] LABS: ABG Base Excess 1.9 mmol/L (-2.4-2.3); ABG HCO3 26.5 mmhg (22.0-26.0); ABG Oxygen Saturation 93 % (90-100); ABG PCO2 42.8 mmhg (35.0-45.0); ABG PH 7.41 mmol/L (7.35-7.45); ABG PO2 64.7 mmhg (80-100); ABG TCO2 27.8 mmhg (23-27)
[2020-07-12 07:04] LABS: Allen's Test ACCEPTABLE; Oxygen 50% %; PEEP 8; Source R RADIAL; Tidal Volume 480; Vent Rate 24
--- NOTE | 2020-07-12 08:56 | PC.NURSE ---
p[atient versed has decreased to 0.02mcg/min
--- NOTE | 2020-07-12 08:58 | HMH.ACPN2 ---
Internal Medicine - PN: Subj *Date: 07/12/20 *Time: 08:58 Interval history: Blood sugar noted to be higher yesterday, no other new events noted. Exam Vital signs and Labs for Last 24 Hours: Temp Pulse Resp BP Pulse Ox 99.1 F 128 H 26 H 153/85 H 93 L 07/12/20 08:00 07/12/20 08:00 07/12/20 08:00 07/12/20 08:00 07/12/20 08:00 Laboratory Results - last 24 hr 07/10/20 12:16: POC Glucose 327 H* 07/10/20 17:42: POC Glucose 302 H* 07/10/20 21:02: POC Glucose 292 H 07/11/20 06:15: POC Glucose 285 H 07/11/20 06:20: Total Counted 100, Neutrophils % (Manual) 92 H, Lymphocytes % (Manual) 3 L, Monocytes % (Manual) 5, Platelet Estimate Normal, RBC Morphology Normal 07/11/20 11:13: POC Glucose 394 H* 07/11/20 16:20: POC Glucose 379 H* 07/11/20 20:41: POC Glucose 362 H* 07/12/20 04:56: POC Glucose 298 H 07/12/20 06:09: Specimen Source R radial, O2 % 50%, ABG pH 7.41, ABG pCO2 42.8, ABG pO2 64.7 L, ABG HCO3 26.5 H, ABG Total CO2 27.8 H, ABG O2 Saturation 93, ABG Base Excess 1.9, Michele Test Acceptable, Vent Rate 24, Tidal Volume 480, PEEP 8 Vital Signs - 24 hr 07/11/20 09:00 07/11/20 09:34 07/11/20 10:00 Temperature 98.3 F 98.6 F Pulse Rate Pulse Rate [Apical] 122 H 105 H Respiratory Rate 17 24 20 Blood Pressure [Right Arm] 119/75 95/64 L 02 Sat by Pulse Oximetry 95 94 L 93 L 07/11/20 11:00 07/11/20 12:00 07/11/20 12:47 Temperature 98.0 F 98.2 F Pulse Rate 120 H 119 H Pulse Rate [Apical] 109 H 120 H Respiratory Rate 23 20 Blood Pressure [Right Arm] 91/64 L 126/68 02 Sat by Pulse Oximetry 93 L 94 L 07/11/20 13:00 07/11/20 13:46 07/11/20 14:00 Temperature 97.6 F 97.9 F Pulse Rate Pulse Rate [Apical] 115 H 126 H Respiratory Rate 23 24 25 H Blood Pressure [Right Arm] 100/63 L 134/85 02 Sat by Pulse Oximetry 93 L 93 L 07/11/20 15:00 07/11/20 16:00 07/11/20 17:00 Temperature 98.1 F 98.3 F 98.9 F Pulse Rate 110 H Pulse Rate [Apical] 129 H 120 H 119 H Respiratory Rate 25 H 21 22 Blood Pressure [Right Arm] 138/82 120/79 125/82 02 Sat by Pulse Oximetry 93 L 93 L 92 L 07/11/20 18:00 07/11/20 19:00 07/11/20 19:36 Temperature 96.8 F L 98.9 F Pulse Rate 120 H Pulse Rate [Apical] 119 H 70 Respiratory Rate 22 26 H 27 H Blood Pressure [Right Arm] 125/82 134/85 02 Sat by Pulse Oximetry 92 L 118 H 94 L 07/11/20 20:00 07/11/20 21:00 07/11/20 22:00 Temperature 98.6 F 98.2 F 98.2 F Pulse Rate 120 H Pulse Rate [Apical] 124 H 123 H 116 H Respiratory Rate 25 H 24 24 Blood Pressure [Right Arm] 130/91 H 152/86 H 141/89 H 02 Sat by Pulse Oximetry 93 L 93 L 91 L 07/11/20 22:50 07/11/20 23:00 07/12/20 00:00 Temperature 98.7 F 99.1 F Pulse Rate 110 H Pulse Rate [Apical] 100 H 113 H Respiratory Rate 26 H 27 H 27 H Blood Pressure [Right Arm] 120/70 135/78 02 Sat by Pulse Oximetry 90 L 07/12/20 01:00 07/12/20 01:15 07/12/20 02:00 Temperature 99.1 F 98.7 F Pulse Rate Pulse Rate [Apical] 113 H 114 H Respiratory Rate 27 H 25 H 26 H Blood Pressure [Right Arm] 135/78 123/74 02 Sat by Pulse Oximetry 90 L 95 91 L 07/12/20 03:00 07/12/20 03:25 07/12/20 04:00 Temperature 97.9 F 99.0 F Pulse Rate 115 H Pulse Rate [Apical] 115 H 121 H Respiratory Rate 26 H 26 H Blood Pressure [Right Arm] 127/76 130/83 02 Sat by Pulse Oximetry 91 L 91 L 90 L 07/12/20 05:00 07/12/20 06:00 07/12/20 06:29 Temperature 98.3 F 99.1 F 98.9 F Pulse Rate Pulse Rate [Apical] 116 H 125 H 123 H Respiratory Rate 25 H 27 H 26 H Blood Pressure [Right Arm] 135/87 136/95 H 132/88 02 Sat by Pulse Oximetry 94 L 92 L 92 L 07/12/20 08:00 Temperature 99.1 F Pulse Rate Pulse Rate [Apical] 128 H Respiratory Rate 26 H Blood Pressure [Right Arm] 153/85 H 02 Sat by Pulse Oximetry 93 L I & O for Last 24 hours: Intake & Output 07/09/20 07/10/20 07/11/20 07/12/20 23:59 23:59 23:59 23:59 Intake Total 1705.750 / 1929.690 8224.208 / 2446.208 2322.875 / 2335.875 521 / 521 Output To
--- NOTE | 2020-07-12 09:56 | PC.NURSE ---
Addendum entered by Sophia Das RN 07/12/20 09:57: turned down to 0.02mg/kg/hr Original Note: turned versed down at this time
--- NOTE | 2020-07-12 09:57 | PC.NURSE ---
versed turned off at this time
--- NOTE | 2020-07-12 10:45 | HMH.PULMPN ---
Internal Medicine - PN: Subj *Date: 07/12/20 *Time: 10:45 Interval history: No acute respiratory events overnight. Vent settings remained stable. Exam - Constitutional Constitutional:: no acute distress, comfortable - Respiratory Exam Respiratory:: crackles Comments: Intubated and sedated. Appears comfortable. Bilateral coarse breath sound prominent in the right lower lobe. Unchanged from yesterday. - Cardiovascular Exam Cardiac:: S1, S2 - GI Exam GI:: soft, no hepatosplenomegaly - Skin Exam Skin: warm, no rash - Extremities Exam Extremities: no cyanosis, no clubbing, edema Assessment and Plan (1) Pneumonia due to COVID-19 virus Status: Acute Category: Medical Code(s): U07.1 - COVID-19; J12.82 - Pneumonia due to coronavirus disease 2019 (2) Respiratory failure with hypoxia Status: Acute Qualifiers: Chronicity: acute Qualified Code(s): J96.01 - Acute respiratory failure with hypoxia Category: Medical Code(s): J96.91 - Respiratory failure, unspecified with hypoxia (3) CAD (coronary artery disease), [place] coronary artery Status: Chronic Qualifiers: [place] vs. transplanted heart: [place] heart Associated angina: without angina Qualified Code(s): I25.10 - Atherosclerotic heart disease of [place] coronary artery without angina pectoris Category: Medical Code(s): I25.10 - Atherosclerotic heart disease of [place] coronary artery without angina pectoris (4) DM2 (diabetes mellitus, type 2) Status: Chronic Qualifiers: Diabetes mellitus penitentiary insulin use: without penitentiary use Diabetes mellitus complication status: without complication Qualified Code(s): E11.9 - Type 2 diabetes mellitus without complications Category: Medical Code(s): E11.9 - Type 2 diabetes mellitus without complications (5) Tachycardia Status: Acute Category: Medical Code(s): R00.0 - Tachycardia, unspecified - Assessment and plan all Dx Assessment and Plan for all problems:: #COVID-19 pneumonia: #Acute hypoxic respiratory failure requiring mechanical ventilation: 69-year-old no prior respiratory complaints never smoker with recent diagnosis of COVID-19 present with worsening respiratory failure cough and productive phlegm. CT showed bilateral diffuse pulmonary infiltrates. No evidence of acute pulmonary embolism. Patient respiratory status gradually worsened throughout his hospital course with increasing oxygen requirements to BiPAP,. Patient was initially DNR/DNI change his CODE STATUS to full code given his worsening respiratory status and severe respiratory distress patient was eventually intubated on December 03, 2020. Patient respiratory status has been gradually improving since admission. Patient received 1 unit of convalescent plasma per repeat D-dimer during hospital course elevated at 8, however repeat lower extremity Doppler negative so opted to continue with prophylactic anticoagulation. Interval update: Patient completed a course of vancomycin and Zosyn, currently on levofloxacin. Patient continued to receive dexamethasone, completed 10-day course of remdesivir Respiratory status improved, remained stable since yesterday, patient passes spontaneous breathing trial with a PEEP of 8 and 50% FiO2, however patient mentation are appropriate for extubation. Auscultation revealed prominent right lower lobe coarse breath sounds unchanged from yesterday. Chest x-ray reviewed, infiltrate unchanged from yesterday. ABG did not show any evidence of respiratory metabolic acidosis, however PO2 64.7, patient saturating 95% on the monitor during SBT. Patient still having leukocytosis but however stable around 25. Creatinine stable. Patient net negative to 48 cc yesterday. We will probably give a dose of Lasix today Dynamically stable. Plan: - 40 IV Lasix once -received - Continue mechanical ventilation with lung protective strategy, SBT tolerating well however patient not responding to sternal
[2020-07-12 12:25] LABS: POC Glucose,Bedside 420 (70-110)
--- NOTE | 2020-07-12 16:22 | PC.NURSE ---
RESPIRATORY CARE NOTE: 1600- PT OXYGEN INCREASED TO 55% ON VENTILATOR DUE TO DECREASING OXYGEN SATURATIONS (89%). PT OXYGEN SATURATION INCREASED TO 92% AFTER INCREASED OXYGEN CHANGE.
--- NOTE | 2020-07-12 16:36 | PC.NURSE ---
Addendum entered by Sophia Das RN 07/12/20 18:08: cpot has been 0, rass -3--2 Original Note: today patient versed has been turned off. fentanyl was cut in half per md order so is now at 20mcg/hr. as versed seemed to leave patient system respiratory rate noted to increase along with heart rate. started patient on propafol. currently propafol is at 45mcg/kg/min. will wean as patient tolerates. oral care has been provided along with q2 turns. noted some shearing to coccyx and start of a stage 2. also noted a small bump/discoloration to area on r buttock. dressing was placed over both areas and kept patient off bottom. did well with sbt today. did require one dose of prn metoprolol. sats did decrease some today and fio2 was turned up to 55% instead of 50%. currently 92-93%. has maintained bp well. heel/stump elevated. diminished lung loja. sinus tach on monitor. highest heart rate 130. fsbs has been elevated today. vitals stable.
--- NOTE | 2020-07-12 18:03 | PC.WOUNDNOTE ---
Wound Location: shearing/stage 2 l side of coccyx. approximately [id number]
--- NOTE | 2020-07-12 18:05 | PC.WOUNDNOTE ---
Wound Location: r buttock
[2020-07-12 18:43] LABS: POC Glucose,Bedside 398 (70-110)
[2020-07-12 20:29] LABS: POC Glucose,Bedside 363 (70-110)
[2020-07-13] VITALS (32 sets, daily range): BP systolic 94–136; BP diastolic 57–86; PULSE 104–132; RESP 20–30; TEMP 36.1–38; O2SAT 90–96; BMI 229250.9
--- NOTE | 2020-07-13 04:46 | XR_ITS ---
PROCEDURE: XR CHEST PORTABLE CLINICAL HISTORY: respiratory failure Covid19 pneumonia COMPARISON: CT CT ANGIO CHEST from 06/28/2020 CR XR CHEST PORTABLE from 07/10/2020 CR XR CHEST PORTABLE from 07/11/2020 CR XR CHEST PORTABLE from 07/12/2020 FINDINGS: The cardiomediastinal silhouette and pulmonary vascularity are within normal limits. Endotracheal tube tip is in good position at the T4-T5 level. NG tube tip in the region of the body of the stomach. Slight improvement bilateral lower lobe pneumonia. IMPRESSION: ET tube and nasogastric tube in good position. Slight improvement bilateral lower lobe pneumonia Dictated by: Michele Sheth MD 07/13/2020 06:55 Michele Sheth MD in [facility] 07/13/2020 06:55
[2020-07-13 05:58] LABS: POC Glucose,Bedside 362 (70-110)
--- NOTE | 2020-07-13 06:21 | PC.NURSE ---
shift summary pt sats maintained between 88-92% with a rate ranging from 24-32. pts lung sounds were clear but diminished.pt was turned every 2 hours to maximize globalization of secretions.pts sats would drop to around 87-88% while being turned but would recover in less then 3 minutes. pt remained sinus tac on the instrumentation and controls technician for the entire shift. pts urine was clear and yellow in color. pt remains sedated at this time with fentanyl at 20mcq and propofol at 40 mcq. pts tube feeding is running at his goal rate of 54mL/hr.
[2020-07-13 06:30] LABS: Basophils # 0.1 K/mm3 (0-0.2); Basophils % 0.6 % (0.1-2.0); Hematocrit 42.5 % (42.0-52.0); Hemoglobin 13.8 g/dL (14.1-18.0); Lymphocytes # 0.9 K/mm3 (0.7-4.5); Lymphocytes % 4.1 % (10-50); Mean Corpuscular HGB Conc 32.4 g/dL (31.8-35.4); Mean Corpuscular Volume 95.9 fl (80-94); Monocytes # 0.9 K/mm3 (0.1-1.0); Monocytes % 4.2 % (1.7-9.3); Neutrophils # 19.2 K/mm3 (1.8-7.8); Neutrophils % 91.1 % (37.0-80.0); Platelet Count 224 K/mm3 (142-424); Red Blood Count 4.44 M/mm3 (4.60-6.20); Red Cell Distribution Width 12.6 % (11.5-17.5); White Blood Count 21.1 K/mm3 (4.8-10.8)
[2020-07-13 06:43] LABS: MANUAL DIFFERENTIAL MANUAL DIFFERENTIAL (MANUAL DIFF)
[2020-07-13 06:51] LABS: Anion Gap 8.1 mEq/L (5-15); Blood Urea Nitrogen 62 mg/dl (9-20); Calcium 8.5 mg/dl (8.4-10.2); Carbon Dioxide 36 mmol/L (22.0-30.0); Chloride 102 mmol/L (98-107); Creatinine Clearance Estimated 81 mL/min (50-200); Estimated Glomerular Filt Rate 96 ml/min (>60); GFR (African American) 116 ML/MIN (>60); Potassium 5.1 mmoL/L (3.5-5.1); Sodium 141 mmol/L (136-145)
[2020-07-13 06:57] LABS: Glucose 409 mg/dl (74-100)
--- NOTE | 2020-07-13 06:59 | PC.NURSE ---
[id number] lab called to report pts blood sugar is 409
[2020-07-13 07:14] LABS: ABG Base Excess 11.3 mmol/L (-2.4-2.3); ABG HCO3 35.1 mmhg (22.0-26.0); ABG Oxygen Saturation 95 % (90-100); ABG PH 7.46 mmol/L (7.35-7.45); ABG PO2 72.6 mmhg (80-100); ABG TCO2 36.6 mmhg (23-27); Allen's Test ACCEPTABLE; Vent Rate 24
[2020-07-13 07:15] LABS: Oxygen 55 %; Source R RADIAL
[2020-07-13 07:16] LABS: PEEP 8; Tidal Volume 480
[2020-07-13 07:18] LABS: ABG PCO2 50.1 mmhg (35.0-45.0)
--- NOTE | 2020-07-13 07:31 | PC.NURSE ---
Dr. Myles notified that CO2 is 50.1.
--- NOTE | 2020-07-13 08:48 | HMH.ACPN2 ---
Internal Medicine - PN: Subj *Date: 07/13/20 *Time: 08:48 Interval history: Patient was able to do a 4 hour breathing trial yesterday, no other new events noted. Exam Vital signs and Labs for Last 24 Hours: Temp Pulse Resp BP Pulse Ox 99.7 F H 128 H 24 125/77 92 L 07/13/20 08:00 07/13/20 08:00 07/13/20 08:00 07/13/20 08:00 07/13/20 08:00 Laboratory Results - last 24 hr 07/12/20 11:59: POC Glucose 420 H* 07/12/20 16:09: POC Glucose 398 H* 07/12/20 20:13: POC Glucose 363 H* 07/13/20 05:00: WBC 21.1 H*, RBC 4.44 L, Hgb 13.8 L, Hct 42.5, MCV 95.9 H, MCH 31.0, MCHC 32.4, RDW 12.6, Plt Count 224, MPV 9.0, Neut % (Auto) 91.1 H, Lymph % (Auto) 4.1 L, [place] % (Auto) 4.2, Eos % (Auto) 0.0 L, Baso % (Auto) 0.6, Neut # (Auto) 19.2 H, Lymph # (Auto) 0.9, [place] # (Auto) 0.9, Eos # (Auto) 0.0, Baso # (Auto) 0.1 07/13/20 05:00: Sodium 141, Potassium 5.1, Chloride 102, Carbon Dioxide 36 H, Anion Gap 8.1, BUN 62 H, Creatinine 0.80, Estimated Creat Clear 81, Estimated GFR 96, Est GFR ( Amer) 116 D, Glucose 409 H*, Calcium 8.5 07/13/20 05:49: POC Glucose 362 H* 07/13/20 07:10: Specimen Source R radial, O2 % 55, ABG pH 7.46 H, ABG pCO2 50.1 H, ABG pO2 72.6 L, ABG HCO3 35.1 H, ABG Total CO2 36.6 H, ABG O2 Saturation 95, ABG Base Excess 11.3 H, Michele Test Acceptable, Vent Rate 24, Tidal Volume 480, PEEP 8 Vital Signs - 24 hr 07/12/20 09:00 07/12/20 09:23 07/12/20 10:00 Temperature 99.1 F 99.2 F Pulse Rate Pulse Rate [Apical] 108 H 102 H Pulse Rate [Right Radial] Respiratory Rate 26 H 26 H 15 Blood Pressure [Right Arm] 131/81 151/84 H 02 Sat by Pulse Oximetry 94 L 94 L 07/12/20 11:00 07/12/20 12:00 07/12/20 12:16 Temperature 99.1 F 99.1 F Pulse Rate 130 H Pulse Rate [Apical] 105 H 130 H Pulse Rate [Right Radial] Respiratory Rate 22 26 H 24 Blood Pressure [Right Arm] 123/85 130/86 02 Sat by Pulse Oximetry 93 L 94 L 07/12/20 13:00 07/12/20 13:29 07/12/20 14:00 Temperature 98.8 F 98.7 F Pulse Rate 131 H Pulse Rate [Apical] 126 H 135 H Pulse Rate [Right Radial] Respiratory Rate 25 H 26 H Blood Pressure [Right Arm] 138/93 H 132/83 02 Sat by Pulse Oximetry 91 L 93 L 07/12/20 14:56 07/12/20 16:00 07/12/20 16:15 Temperature 99.1 F 99.4 F Pulse Rate 110 H Pulse Rate [Apical] 129 H 112 H Pulse Rate [Right Radial] Respiratory Rate 28 H 27 H 32 H Blood Pressure [Right Arm] 123/75 109/71 L 02 Sat by Pulse Oximetry 90 L 91 L 89 L 07/12/20 17:00 07/12/20 18:00 07/12/20 18:39 Temperature 98.9 F 99.4 F 98.8 F Pulse Rate Pulse Rate [Apical] 119 H 123 H 123 H Pulse Rate [Right Radial] Respiratory Rate 24 28 H 26 H Blood Pressure [Right Arm] 106/67 L 113/70 109/71 L 02 Sat by Pulse Oximetry 92 L 92 L 94 L 07/12/20 20:00 07/12/20 20:29 07/12/20 20:41 Temperature 99.7 F H Pulse Rate 123 H 123 H Pulse Rate [Apical] 120 H Pulse Rate [Right Radial] Respiratory Rate 30 H 26 H Blood Pressure [Right Arm] 110/72 02 Sat by Pulse Oximetry 93 L 93 L 93 L 07/12/20 21:00 07/12/20 22:00 07/12/20 23:00 Temperature 98.3 F 99.3 F 100.2 F H Pulse Rate Pulse Rate [Apical] 123 H 130 H 114 H Pulse Rate [Right Radial] Respiratory Rate 25 H 30 H 28 H Blood Pressure [Right Arm] 112/75 120/73 105/66 L 02 Sat by Pulse Oximetry 91 L 91 L 93 L 07/12/20 23:15 07/13/20 00:00 07/13/20 01:00 Temperature 99.6 F 97 F L Pulse Rate 110 H Pulse Rate [Apical] 120 H 115 H Pulse Rate [Right Radial] Respiratory Rate 24 30 H 27 H Blood Pressure [Right Arm] 108/72 L 94/64 L 02 Sat by Pulse Oximetry 92 L 96 91 L 07/13/20 02:00 07/13/20 03:00 07/13/20 03:37 Temperature 98.3 F 99.1 F 99.6 F Pulse Rate Pulse Rate [Apical] 119 H 119 H 120 H Pulse Rate [Right Radial] Respiratory Rate 25 H 26 H Blood Pressure [Right Arm] 107/62 L 114/64 116/67 02 Sat by Pulse Oximetry 92 L 92 L 91 L 07/13/20 03:40 07/13/20 04:00 07/13/20 04:05 Temperature Pulse Rate
--- NOTE | 2020-07-13 09:02 | HMH.PULMPN ---
Internal Medicine - PN: Subj *Date: 07/13/20 *Time: 14:15 Interval history: Patient has an episode of hypoxia overnight needing FiO2 increased to 55%. No other acute respiratory events noted. Exam - Constitutional Constitutional:: Present: no acute distress, comfortable - Respiratory Exam Comments: Likely clear except for bibasilar coarse breath sounds. - Cardiovascular Exam Cardiac:: Present: S1, S2 - GI Exam GI:: Present: soft - Skin Exam Skin: Present: warm, no rash - Extremities Exam Extremities: Present: no cyanosis, no clubbing, edema Assessment and Plan (1) Pneumonia due to COVID-19 virus Status: Acute Category: Medical Code(s): U07.1 - COVID-19; J12.82 - Pneumonia due to coronavirus disease 2019 (2) Respiratory failure with hypoxia Status: Acute Qualifiers: Chronicity: acute Qualified Code(s): J96.01 - Acute respiratory failure with hypoxia Category: Medical Code(s): J96.91 - Respiratory failure, unspecified with hypoxia (3) CAD (coronary artery disease), [place] coronary artery Status: Chronic Qualifiers: [place] vs. transplanted heart: [place] heart Associated angina: without angina Qualified Code(s): I25.10 - Atherosclerotic heart disease of [place] coronary artery without angina pectoris Category: Medical Code(s): I25.10 - Atherosclerotic heart disease of [place] coronary artery without angina pectoris (4) DM2 (diabetes mellitus, type 2) Status: Chronic Qualifiers: Diabetes mellitus [employer] insulin use: without [employer] driver use Diabetes mellitus complication status: without complication Qualified Code(s): E11.9 - Type 2 diabetes mellitus without complications Category: Medical Code(s): E11.9 - Type 2 diabetes mellitus without complications (5) Tachycardia Status: Acute Category: Medical Code(s): R00.0 - Tachycardia, unspecified - Assessment and plan all Dx Assessment and Plan for all problems:: #COVID-19 pneumonia: #Acute hypoxic respiratory failure requiring mechanical ventilation: 69-year-old no prior respiratory complaints never smoker with recent diagnosis of COVID-19 present with worsening respiratory failure cough and productive phlegm. CT showed bilateral diffuse pulmonary infiltrates. No evidence of acute pulmonary embolism. Patient respiratory status gradually worsened throughout his hospital course with increasing oxygen requirements to BiPAP,. Patient was initially DNR/DNI change his CODE STATUS to full code given his worsening respiratory status and severe respiratory distress patient was eventually intubated on December 03, 2020. Patient respiratory status has been gradually improving since admission. Patient received 1 unit of convalescent plasma per repeat D-dimer during hospital course elevated at 8, however repeat lower extremity Doppler negative so opted to continue with prophylactic anticoagulation. Interval update: Patient completed a course of vancomycin and Zosyn, currently on levofloxacin. Patient continued to receive dexamethasone, completed 10-day course of remdesivir Patient has an acute respiratory event overnight needing increased FiO2 to 50%. Otherwise relatively stable. Chest x-ray continued to show improvement in his bilateral pneumonia. 40 mg Lasix today with only net -400 cc. Will give another 60 mg of Lasix drip WBC stable, slightly declined to 21.1 today. Creatinine stable. ABG reviewed, PO2 slightly improved from yesterday. Plan: - Lasix 60 mg IV once today - We will continue to aggressively wean sedation as tolerated and will continue perform SBT's - Continue mechanical ventilation with lung protective strategy, - Continue dexamethasone , completed 10-day course of remdesivir - DuoNebs every 6 hours scheduled - Continue PPI and DVT prophylaxis - Continue tube feeding Total critical care time spent on this patient is 35 minutes managing acute hypoxic respiratory failure needing mechanical ventilation. Thi
--- NOTE | 2020-07-13 09:40 | PC.NURSE ---
Dr. Myles @ [facility]. He ordered to STOP Fent and Propofol and to do a 1hr SBT. Both gtts stopped @ 0940. If pt gets agitated/restless, he ordered to turn Propofol back on @ half the dose and to use prn Fentanyl IV.
[2020-07-13 10:56] LABS: VBG Base Excess 11.9 mmol/L (-2.4-2.3); VBG HCO3 35.7 mmol/L (23-30); VBG Oxygen Saturation 98.1 % (50-70); VBG PCO2 51.2 mmol/L (35-51); VBG PH 7.46 mmol/L (7.31-7.41); VBG Total CO2 37.3 mmol/L (23-27)
[2020-07-13 11:38] LABS: POC Glucose,Bedside 373 (70-110)
--- NOTE | 2020-07-13 11:38 | PC.NURSE ---
Pt back on previous vent settings. Propofol gtt turned back on @ 20mcg
[2020-07-13 11:39] LABS: Eosinophils % 1 % (0-3); Lymphocytes % 4 % (10-50); Monocytes % 2 % (2-9); Neutrophils % 92 % (42-76); Platelet Estimate Normal; RBC Morphology Normal; Total Cells Counted 100
--- NOTE | 2020-07-13 16:07 | PC.NURSE ---
gastric residual 0mL @ 0800, 1200, and 1600. Tubefeed rate continues @ goal rate of 54mL/hr.
[2020-07-13 16:52] LABS: POC Glucose,Bedside 394 (70-110)
--- NOTE | 2020-07-13 17:06 | DIET.NUTRFU ---
Pt with good toleration tube feeds. 6# weight loss past 24h. He has had increasing hyperglycemia, insulin change made today should assist. No BM past 48h and only 1 t/o stay that was black which is concerning. Plan to observe BG with insulin change and tolerance/bowels over next 48h. If indicated, will decrease rate to within conservative needs, no change to current nutritional plan at this time as stated in order. Pt within energy, protein, and fluid needs.
[2020-07-13 21:23] LABS: POC Glucose,Bedside 386 (70-110)
[2020-07-14] VITALS (37 sets, daily range): BP systolic 93–139; BP diastolic 56–88; PULSE 93–122; RESP 16–28; TEMP 36.4–37.9; O2SAT 89–96; BMI 23.3
--- NOTE | 2020-07-14 02:59 | PC.NURSE ---
0300 pts sedation was decreased by half will continue to monitor.
--- NOTE | 2020-07-14 04:00 | PC.NURSE ---
0400 pts sedation off at this time, pts breathing is more labored with a rate of 26 with sats at 91%. pt will turn his head torward you when spoken to and tries to open his eyes but cant fully. pts tidal volume is 780, peak pressure 26, with a mean of 9. pts heart rate ranges from 101-104
[2020-07-14 05:46] LABS: POC Glucose,Bedside 327 (70-110)
--- NOTE | 2020-07-14 06:14 | PC.NURSE ---
pt summary pts lung sounds are clear but diminished, pts sats ranged from 89-94% with a rate from 24-30 while sedated. now that the pts sedation is off his sats have ranged from 88-92% with his rate ranging from 24-28. pt was turned every 2 hours at a 40 degree angle to maximize globalization of secretions. pt has remained sinus tach on the map maker. pt has a humphrey in place with clear straw in color urine. pt has run a low grade fever with the highest temp being 100.9. pt can follow certain commands such as turning his head when asked but can not open his eyes all the way. pt has his tube feeding running at his goal rate of 54ml/hr.
[2020-07-14 07:26] LABS: ABG PH 7.45 mmol/L (7.35-7.45)
[2020-07-14 07:27] LABS: ABG HCO3 34.6 mmhg (22.0-26.0); ABG Oxygen Saturation 92 % (90-100); ABG PCO2 51.1 mmhg (35.0-45.0); ABG PO2 63.2 mmhg (80-100); ABG TCO2 36.1 mmhg (23-27); Oxygen 55 %; PEEP 8; Pressure Support 5
[2020-07-14 07:28] LABS: Allen's Test ACCEPTABLE; Source Right Radial
--- NOTE | 2020-07-14 07:41 | PC.NURSE ---
KarenRT calling result of SBT ABG to Dr. Myles @ this time
--- NOTE | 2020-07-14 08:38 | HMH.ACPN2 ---
Internal Medicine - PN: Subj *Date: 07/14/20 *Time: 09:06 Interval history: No new events noted overnight. Exam Vital signs and Labs for Last 24 Hours: Temp Pulse Resp BP Pulse Ox 98.6 F 120 H 25 H 137/82 90 L 07/14/20 06:51 07/14/20 06:51 07/14/20 06:51 07/14/20 06:51 07/14/20 06:51 Laboratory Results - last 24 hr 07/13/20 05:00: Total Counted 100, Neutrophils % (Manual) 92 H, Band Neutrophils % 1.0, Lymphocytes % (Manual) 4 L, Monocytes % (Manual) 2, Eosinophils % (Manual) 1, Platelet Estimate Normal, RBC Morphology Normal 07/13/20 09:11: VBG pH 7.46 H, VBG pCO2 51.2 H, VBG HCO3 35.7 H, VBG Total CO2 37.3 H, VBG O2 Saturation 98.1 H, VBG Base Excess 11.9 H 07/13/20 11:28: POC Glucose 373 H* 07/13/20 16:45: POC Glucose 394 H* 07/13/20 20:58: POC Glucose 386 H* 07/14/20 05:39: POC Glucose 327 H* 07/14/20 07:00: Specimen Source Right radial, O2 % 55, ABG pH 7.45, ABG pCO2 51.1 H, ABG pO2 63.2 L, ABG HCO3 34.6 H, ABG Total CO2 36.1 H, ABG O2 Saturation 92, ABG Base Excess 9.0 H, Michele Test Acceptable, PEEP 8 Vital Signs - 24 hr 07/13/20 09:00 07/13/20 10:00 07/13/20 10:10 Temperature Pulse Rate Pulse Rate [Apical] Pulse Rate [Right Radial] 121 H 125 H Respiratory Rate 20 22 29 H Blood Pressure [Right Arm] 116/71 117/77 02 Sat by Pulse Oximetry 94 L 92 L 07/13/20 11:00 07/13/20 12:00 07/13/20 13:00 Temperature 98.9 F Pulse Rate 112 H Pulse Rate [Apical] Pulse Rate [Right Radial] 106 H 112 H 118 H Respiratory Rate 22 22 26 H Blood Pressure [Right Arm] 133/86 126/81 136/78 02 Sat by Pulse Oximetry 93 L 92 L 93 L 07/13/20 14:00 07/13/20 14:15 07/13/20 15:00 Temperature Pulse Rate 121 H Pulse Rate [Apical] Pulse Rate [Right Radial] 117 H 121 H Respiratory Rate 26 H 26 H 24 Blood Pressure [Right Arm] 121/68 102/57 L 02 Sat by Pulse Oximetry 93 L 93 L 95 07/13/20 16:00 07/13/20 17:00 07/13/20 18:00 Temperature 97.9 F Pulse Rate 125 H Pulse Rate [Apical] Pulse Rate [Right Radial] 114 H 124 H 120 H Respiratory Rate 28 H 25 H 24 Blood Pressure [Right Arm] 128/72 111/70 114/66 02 Sat by Pulse Oximetry 91 L 92 L 92 L 07/13/20 18:41 07/13/20 19:00 07/13/20 20:00 Temperature 99.6 F 99.6 F Pulse Rate 123 H 125 H Pulse Rate [Apical] 119 H Pulse Rate [Right Radial] 120 H 126 H Respiratory Rate 24 24 24 Blood Pressure [Right Arm] 109/62 L 111/77 02 Sat by Pulse Oximetry 93 L 95 92 L 07/13/20 21:00 07/13/20 22:00 07/13/20 23:00 Temperature 100.4 F H Pulse Rate Pulse Rate [Apical] Pulse Rate [Right Radial] 104 H 105 H 118 H Respiratory Rate 24 27 H 24 Blood Pressure [Right Arm] 97/58 L 105/67 L 132/73 02 Sat by Pulse Oximetry 93 L 90 L 90 L 07/13/20 23:19 07/14/20 00:00 07/14/20 01:00 Temperature 99.4 F Pulse Rate 110 H Pulse Rate [Apical] 110 H Pulse Rate [Right Radial] 110 H 108 H Respiratory Rate 24 26 H 24 Blood Pressure [Right Arm] 108/65 L 112/65 02 Sat by Pulse Oximetry 91 L 92 L 93 L 07/14/20 01:51 07/14/20 02:00 07/14/20 02:33 Temperature 99.4 F Pulse Rate Pulse Rate [Apical] Pulse Rate [Right Radial] 112 H Respiratory Rate 24 27 H 24 Blood Pressure [Right Arm] 102/59 L 02 Sat by Pulse Oximetry 94 L 93 L 07/14/20 03:00 07/14/20 04:00 07/14/20 05:00 Temperature 100.2 F H 99.8 F H 98.9 F Pulse Rate 102 H Pulse Rate [Apical] 103 H Pulse Rate [Right Radial] 98 H 93 H 113 H Respiratory Rate 26 H 26 H Blood Pressure [Right Arm] 93/56 L 115/71 139/88 02 Sat by Pulse Oximetry 93 L 91 L 90 L 07/14/20 05:55 07/14/20 06:00 07/14/20 06:51 Temperature 98.6 F 98.6 F Pulse Rate Pulse Rate [Apical] Pulse Rate [Right Radial] 118 H 120 H Respiratory Rate 24 25 H Blood Pressure [Right Arm] 139/73 137/82 02 Sat by Pulse Oximetry 91 L 89 L 90 L I & O for Last 24 hours: Intake & Output 07/11/20 07/12/20 07/13/20 07/14/20 23:59 23:59 23:59 23:59 Intake Total 2322.875 / 233
[2020-07-14 10:42] LABS: POC Glucose,Bedside 393 (70-110)
--- NOTE | 2020-07-14 18:07 | PC.NURSE ---
#7.5 ETT 25 @ lip. No changes to vent settings this shift. SBT this AM, pt tolerated well. Placed back on AC @ 1000. To continue w/ another trial in the AM per Dr. Myles. OGT @ 65 cm. Pulmocare @ goal of 54 mls/hr. Tolerating well. Oral care and suctioning performed Q2H. Sinus tach on tely. Abdomen soft, flat, non-tender. No BM this shift. Dressing to coccyx C/D/I. Goncalves cath to drain @ bedside w/ clear light louann urine noted. Adeuquate UOP this shift. Goncalves care performed by nursing staff. Pt turned and repositioned Q2H. Safety in place.
[2020-07-15] VITALS (34 sets, daily range): BP systolic 94–135; BP diastolic 60–83; PULSE 96–129; RESP 20–32; TEMP 36.3–38.1; O2SAT 87–95; BMI 239439.8
--- NOTE | 2020-07-15 06:03 | PC.NURSE ---
Addendum entered by Juanpablo Mcfarlane RN ([facility]) 07/15/20 06:25: propofol at a rate of 7.4mL/hr, and fentanyl at a rate of 1.3 mL/hr Original Note: 0100 pts sedation was reduced to half
--- NOTE | 2020-07-15 06:11 | PC.NURSE ---
Addendum entered by Juanpablo Mcfarlane RN ([facility]) 07/15/20 06:27: propofol at a rate of 3.7 mL/hr, and fentanyl at a rate of 0.6 mL/hr Original Note: 0300 pts sedation was reduced by a 1/4
--- NOTE | 2020-07-15 06:12 | PC.NURSE ---
0400 pts sedation was turned off will continue to monitor.
--- NOTE | 2020-07-15 06:13 | PC.NURSE ---
pt summary pts lung sounds are clear but diminished, pts sats remained between 88-94% with a rate ranging from 24-32.pt was turned every 2 hours at a 40 degree angle to maximize globalization of secretions, pt sats remained 88-92% while being turned. pt remained sinus tach on the property assessment monitor. pt has a humphrey in place with clear dark yellow urine. sedation is turned off but pt still only follows certain commands. tube feeding is going at goal rate of 54 mL/hr
[2020-07-15 07:19] LABS: ABG HCO3 34.9 mmhg (22.0-26.0); ABG Oxygen Saturation 93 % (90-100); ABG PH 7.45 mmol/L (7.35-7.45); ABG PO2 64.4 mmhg (80-100); ABG TCO2 36.5 mmhg (23-27)
[2020-07-15 07:23] LABS: Allen's Test acceptable; Oxygen 50 %; PEEP 8; Pressure Support 5
[2020-07-15 07:24] LABS: ABG PCO2 51.3 mmhg (35.0-45.0)
--- NOTE | 2020-07-15 07:50 | HMH.ACPN2 ---
Internal Medicine - PN: Subj *Date: 07/15/20 *Time: 07:58 Interval history: No new issues reported over night. Exam Vital signs and Labs for Last 24 Hours: Temp Pulse Resp BP Pulse Ox 98.5 F 125 H 24 120/65 91 L 07/15/20 06:49 07/15/20 06:49 07/15/20 06:49 07/15/20 06:49 07/15/20 06:49 Laboratory Results - last 24 hr 07/14/20 10:35: POC Glucose 393 H* 07/15/20 07:00: Specimen Source r radial, O2 % 50, ABG pH 7.45, ABG pCO2 51.3 H, ABG pO2 64.4 L, ABG HCO3 34.9 H, ABG Total CO2 36.5 H, ABG O2 Saturation 93, ABG Base Excess 11.0 H, Michele Test acceptable, PEEP 8 Vital Signs - 24 hr 07/14/20 08:00 07/14/20 09:00 07/14/20 10:00 Temperature 97.5 F L Pulse Rate 117 H Pulse Rate [Apical] 121 H Pulse Rate [Right Radial] 121 H 119 H 104 H Respiratory Rate 24 23 16 Blood Pressure [Right Arm] 138/78 129/74 121/70 02 Sat by Pulse Oximetry 91 L 94 L 96 07/14/20 10:20 07/14/20 11:00 07/14/20 12:00 Temperature 99.3 F Pulse Rate 105 H Pulse Rate [Apical] 105 H Pulse Rate [Right Radial] 93 H 104 H Respiratory Rate 26 H 20 26 H Blood Pressure [Right Arm] 116/62 128/72 02 Sat by Pulse Oximetry 93 L 92 L 93 L 07/14/20 13:00 07/14/20 13:27 07/14/20 14:00 Temperature Pulse Rate 111 H Pulse Rate [Apical] Pulse Rate [Right Radial] 106 H 111 H Respiratory Rate 24 22 Blood Pressure [Right Arm] 112/71 107/72 L 02 Sat by Pulse Oximetry 93 L 93 L 07/14/20 14:25 07/14/20 15:00 07/14/20 16:00 Temperature 99.3 F Pulse Rate 109 H Pulse Rate [Apical] Pulse Rate [Right Radial] 111 H 110 H Respiratory Rate 25 H 19 20 Blood Pressure [Right Arm] 110/75 113/65 02 Sat by Pulse Oximetry 93 L 93 L 94 L 07/14/20 17:00 07/14/20 18:00 07/14/20 18:26 Temperature Pulse Rate Pulse Rate [Apical] 109 H Pulse Rate [Right Radial] 107 H 109 H Respiratory Rate 22 24 24 Blood Pressure [Right Arm] 98/66 L 102/69 L 02 Sat by Pulse Oximetry 94 L 93 L 93 L 07/14/20 18:55 07/14/20 19:44 07/14/20 19:53 Temperature 99.6 F Pulse Rate 107 H Pulse Rate [Apical] 108 H 108 H Pulse Rate [Right Radial] Respiratory Rate 24 27 H Blood Pressure [Right Arm] 109/70 L 97/70 L 02 Sat by Pulse Oximetry 92 L 93 L 07/14/20 19:59 07/14/20 20:00 07/14/20 21:00 Temperature 98.3 F Pulse Rate 100 H Pulse Rate [Apical] 108 H 110 H Pulse Rate [Right Radial] Respiratory Rate 27 H 25 H Blood Pressure [Right Arm] 123/82 02 Sat by Pulse Oximetry 93 L 92 L 07/14/20 21:55 07/14/20 22:09 07/14/20 23:00 Temperature 99 F 99.3 F Pulse Rate Pulse Rate [Apical] 117 H 122 H Pulse Rate [Right Radial] Respiratory Rate 28 H 28 H 28 H Blood Pressure [Right Arm] 120/79 127/81 02 Sat by Pulse Oximetry 91 L 91 L 92 L 07/14/20 23:55 07/15/20 00:00 07/15/20 01:00 Temperature 99.3 F 99 F Pulse Rate 102 H Pulse Rate [Apical] 111 H 111 H 96 H Pulse Rate [Right Radial] Respiratory Rate 26 H 26 H Blood Pressure [Right Arm] 94/60 L 94/60 L 02 Sat by Pulse Oximetry 92 L 92 L 94 L 07/15/20 02:00 07/15/20 02:25 07/15/20 03:00 Temperature 99.3 F 98.6 F Pulse Rate Pulse Rate [Apical] 98 H 108 H Pulse Rate [Right Radial] Respiratory Rate 24 26 H 29 H Blood Pressure [Right Arm] 103/67 L 121/73 02 Sat by Pulse Oximetry 91 L 91 L 91 L 07/15/20 04:00 07/15/20 05:00 07/15/20 05:56 Temperature 98.6 F 99.6 F Pulse Rate 110 H Pulse Rate [Apical] 120 H 118 H Pulse Rate [Right Radial] Respiratory Rate 30 H 32 H 27 H Blood Pressure [Right Arm] 130/79 135/83 02 Sat by Pulse Oximetry 90 L 90 L 91 L 07/15/20 06:00 07/15/20 06:49 Temperature 99.5 F 98.5 F Pulse Rate Pulse Rate [Apical] 120 H 125 H Pulse Rate [Right Radial] Respiratory Rate 27 H 24 Blood Pressure [Right Arm] 129/76 120/65 02 Sat by Pulse Oximetry 91 L 91 L I & O for Last 24 hours: Intake & Output 07/12/20 07/13/20 07/14/20 07/15/20 23:59 23:59 23:59 23:59 Intake
--- NOTE | 2020-07-15 19:24 | PC.NURSE ---
Pt tolerated SBT this AM. Peep decreased to [address] Myles. Returned to SIMV @ 1000. Since Peep was decreased to 5 pt has desat to to mid 80's w/ any kind of turning and repositioning. Peep was ultimately turned back to 8 by Myranda,RT. Pt responded minimally w/ this change, sats high 80's, FIO2 was then increased to 60%. Since then pt has rested comfortably. #7.5 ETT @ 25 cm. Suctioning and oral care performed Q2H. Sinus tach on tely, IV prn lopressor given w/ noted improvement of HR throughout shift. Abdomen soft, non-tender. OGT @ 65. Pulmocare continues @ goal rate, tolerating well. No BM this shift. Goncalves cath to drain @ bedside. Cath care performed by staff. Turning and repositioning Q2H. Report given to oncoming nurse.
[2020-07-16] VITALS (44 sets, daily range): BP systolic 86–134; BP diastolic 43–78; PULSE 66–138; RESP 23–35; TEMP 36.5–38.9; O2SAT 80–100; BMI 23.5
--- NOTE | 2020-07-16 05:06 | XR_ITS ---
PROCEDURE: XR CHEST PORTABLE CLINICAL HISTORY: resp failure Covid19 pneumonia COMPARISON: CT CT ANGIO CHEST from 06/28/2020 CR XR CHEST PORTABLE from 07/11/2020 CR XR CHEST PORTABLE from 07/12/2020 CR XR CHEST PORTABLE from 07/13/2020 FINDINGS: Endotracheal tube and nasogastric tube are in good position. Diffuse bilateral ground-glass pneumonia appears slightly worse. No evidence of pneumothorax. Opacity is present in the left lung base and may be due to an area of atelectasis No acute bony abnormalities. IMPRESSION: Endotracheal tube and nasogastric tube in good position. Slight worsening diffuse bilateral pneumonia Dictated by: Michele Sheth MD 07/16/2020 06:30 Michele Sheth MD in [facility] 07/16/2020 06:30
--- NOTE | 2020-07-16 07:57 | PC.NURSE ---
pt summary pts lung sounds sounded worse then at previous shift but as the night progressed lung sounds improved still diminishe d
--- NOTE | 2020-07-16 07:59 | PC.NURSE ---
shift summary pt sounded more diminished then previous night but as the night progressed lung sounds improved pts sats maintained 88-94% with a rate ranging from 24-33. pt remained sinus tach on the child monitor bp was waxing and waning. pt spiked a fever of 102 rectally at 0300. pts sedation was reduced by half at 0100 and then turned off at [address]. [address] with clear dark yellow urine. tube feeding is at goal rate of 54mL/hr. pt is able to follow certain commands.
[2020-07-16 08:27] LABS: ABG Base Excess 10.4 mmol/L (-2.4-2.3); ABG HCO3 34.9 mmhg (22.0-26.0); ABG Oxygen Saturation 94 % (90-100); ABG PH 7.42 mmol/L (7.35-7.45); ABG PO2 71.6 mmhg (80-100); ABG TCO2 36.7 mmhg (23-27)
[2020-07-16 08:28] LABS: ABG PCO2 55.5 mmhg (35.0-45.0)
[2020-07-16 08:34] LABS: Allen's Test Patient Unable; Oxygen 60 %; PEEP 8; Pressure Support 5
[2020-07-16 08:35] LABS: Source Left Radial
--- NOTE | 2020-07-16 09:05 | HMH.ACPN2 ---
Internal Medicine - PN: Subj *Date: 07/16/20 *Time: 09:05 Interval history: No events reported overnight, FiO2 was turned up slightly to 60%. Exam Vital signs and Labs for Last 24 Hours: Temp Pulse Resp BP Pulse Ox 98.6 F 118 H 31 H 133/78 94 L 07/16/20 06:49 07/16/20 06:49 07/16/20 06:49 07/16/20 06:49 07/16/20 06:49 Laboratory Results - last 24 hr 07/16/20 08:20: Specimen Source Left radial, O2 % 60, ABG pH 7.42, ABG pCO2 55.5 H, ABG pO2 71.6 L, ABG HCO3 34.9 H, ABG Total CO2 36.7 H, ABG O2 Saturation 94, ABG Base Excess 10.4 H, Michele Test Patient unable, PEEP 8 Vital Signs - 24 hr 07/15/20 10:00 07/15/20 10:35 07/15/20 10:54 Temperature 97.6 F 97.8 F Pulse Rate Pulse Rate [Apical] 100 H 106 H Pulse Rate [Right Radial] Respiratory Rate 28 H 24 28 H Blood Pressure [Right Arm] 115/68 114/67 02 Sat by Pulse Oximetry 90 L 89 L 87 L 07/15/20 11:59 07/15/20 12:00 07/15/20 12:48 Temperature 97.6 F Pulse Rate 110 H 118 H Pulse Rate [Apical] 108 H Pulse Rate [Right Radial] Respiratory Rate 28 H Blood Pressure [Right Arm] 118/66 02 Sat by Pulse Oximetry 91 L 91 L 07/15/20 12:54 07/15/20 14:00 07/15/20 14:28 Temperature 97.4 F L 100.6 F H Pulse Rate Pulse Rate [Apical] 113 H 112 H Pulse Rate [Right Radial] Respiratory Rate 26 H 26 H 25 H Blood Pressure [Right Arm] 112/72 110/64 02 Sat by Pulse Oximetry 88 L 90 L 93 L 07/15/20 14:50 07/15/20 16:00 07/15/20 17:00 Temperature 97.8 F 97.6 F 97.6 F Pulse Rate 120 H Pulse Rate [Apical] 114 H 118 H 119 H Pulse Rate [Right Radial] Respiratory Rate 28 H 28 H 22 Blood Pressure [Right Arm] 113/71 100/68 L 114/65 02 Sat by Pulse Oximetry 92 L 91 L 91 L 07/15/20 18:00 07/15/20 18:49 07/15/20 19:05 Temperature 97.8 F 97.7 F Pulse Rate 121 H Pulse Rate [Apical] 117 H 120 H Pulse Rate [Right Radial] Respiratory Rate 20 24 32 H Blood Pressure [Right Arm] 103/62 L 113/67 02 Sat by Pulse Oximetry 92 L 92 L 93 L 07/15/20 20:00 07/15/20 21:00 07/15/20 22:00 Temperature 98.8 F 99.2 F 97.5 F L Pulse Rate 118 H Pulse Rate [Apical] 117 H Pulse Rate [Right Radial] 122 H 114 H Respiratory Rate 27 H 24 29 H Blood Pressure [Right Arm] 105/71 L 106/64 L 114/70 02 Sat by Pulse Oximetry 94 L 94 L 92 L 07/15/20 23:00 07/15/20 23:10 07/15/20 23:53 Temperature 98.8 F 99.1 F Pulse Rate Pulse Rate [Apical] Pulse Rate [Right Radial] 117 H 120 H Respiratory Rate 28 H 27 H 30 H Blood Pressure [Right Arm] 96/64 L 112/70 02 Sat by Pulse Oximetry 95 92 L 93 L 07/16/20 00:00 07/16/20 00:57 07/16/20 02:00 Temperature 98.8 F 99.2 F Pulse Rate 125 H Pulse Rate [Apical] 125 H Pulse Rate [Right Radial] 125 H 128 H Respiratory Rate 30 H 26 H 28 H Blood Pressure [Right Arm] 122/73 115/71 02 Sat by Pulse Oximetry 92 L 97 92 L 07/16/20 02:20 07/16/20 03:00 07/16/20 03:10 Temperature 101.9 F H 102.0 F H Pulse Rate Pulse Rate [Apical] Pulse Rate [Right Radial] 120 H Respiratory Rate 30 H 32 H Blood Pressure [Right Arm] 111/66 02 Sat by Pulse Oximetry 90 L 90 L 07/16/20 04:00 07/16/20 05:00 07/16/20 06:00 Temperature 101.2 F H 101.1 F H 99.8 F H Pulse Rate 115 H Pulse Rate [Apical] 118 H 115 H Pulse Rate [Right Radial] 116 H 117 H Respiratory Rate 30 H 26 H 33 H Blood Pressure [Right Arm] 102/44 L 93/54 L 134/77 02 Sat by Pulse Oximetry 90 L 94 L 93 L 07/16/20 06:45 07/16/20 06:49 Temperature 98.6 F Pulse Rate Pulse Rate [Apical] Pulse Rate [Right Radial] 118 H Respiratory Rate 31 H Blood Pressure [Right Arm] 133/78 02 Sat by Pulse Oximetry 93 L 94 L I & O for Last 24 hours: Intake & Output 07/13/20 07/14/20 07/15/20 07/16/20 23:59 23:59 23:59 23:59 Intake Total 2808.125 / 2862.125 1631.917 / 0784.659 6386.792 / 1365.792 886 / 886 Output Total 3125 / 3160 1652 / 1675 1051 / 1051 332 / 332 Balance -316.875 / -297.875 -20.083 / 10.917 24.79
--- NOTE | 2020-07-16 11:07 | HMH.PULMPN ---
Internal Medicine - PN: Subj *Date: 07/16/20 *Time: 11:07 Interval history: No acute respiratory events over the weekend. Exam - Respiratory Exam Respiratory:: Present: normal respiratory effort, respiratory distress, crackles - Cardiovascular Exam Cardiac:: Present: S1, S2 - GI Exam GI:: Present: soft - Skin Exam Skin: Present: warm, no rash - Extremities Exam Extremities: Present: no cyanosis, no clubbing, no edema Assessment and Plan (1) Pneumonia due to COVID-19 virus Status: Acute Category: Medical Code(s): U07.1 - COVID-19; J12.82 - Pneumonia due to coronavirus disease 2019 (2) Respiratory failure with hypoxia Status: Acute Qualifiers: Chronicity: acute Qualified Code(s): J96.01 - Acute respiratory failure with hypoxia Category: Medical Code(s): J96.91 - Respiratory failure, unspecified with hypoxia (3) CAD (coronary artery disease), jackson coronary artery Status: Chronic Qualifiers: [place] vs. transplanted heart: jackson heart Associated angina: without angina Qualified Code(s): I25.10 - Atherosclerotic heart disease of jackson coronary artery without angina pectoris Category: Medical Code(s): I25.10 - Atherosclerotic heart disease of jackson coronary artery without angina pectoris (4) DM2 (diabetes mellitus, type 2) Status: Chronic Qualifiers: Diabetes mellitus technician terminal and repeater insulin use: without technician terminal and repeater use Diabetes mellitus complication status: without complication Qualified Code(s): E11.9 - Type 2 diabetes mellitus without complications Category: Medical Code(s): E11.9 - Type 2 diabetes mellitus without complications (5) Tachycardia Status: Acute Category: Medical Code(s): R00.0 - Tachycardia, unspecified - Assessment and plan all Dx Assessment and Plan for all problems:: #COVID-19 pneumonia: #Acute hypoxic respiratory failure requiring mechanical ventilation: 69-year-old no prior respiratory complaints never smoker with recent diagnosis of COVID-19 present with worsening respiratory failure cough and productive phlegm. CT showed bilateral diffuse pulmonary infiltrates. No evidence of acute pulmonary embolism. Patient respiratory status gradually worsened throughout his hospital course with increasing oxygen requirements to BiPAP,. Patient was initially DNR/DNI change his CODE STATUS to full code given his worsening respiratory status and severe respiratory distress patient was eventually intubated on December 03, 2020. Patient respiratory status has been gradually improving since admission. Patient received 1 unit of convalescent plasma per repeat D-dimer during hospital course elevated at 8, however repeat lower extremity Doppler negative so opted to continue with prophylactic anticoagulation. Patient completed a course of vancomycin and Zosyn, currently on levofloxacin. Patient continued to receive dexamethasone, completed 10-day course of remdesivir Interval update: Patient respiratory mechanics gradually improved through the hospital course, patient has been successfully tolerating spontaneous breathing trials. Patient this morning sedated and not being able to follow commands. Chest x-ray relatively unchanged. We will continue to wean the sedation and continue our efforts towards extubation We will also wean ventilator settings to PEEP of 5 & 40% FiO2 as tolerated Plan: - We will continue to aggressively wean sedation as tolerated and will continue perform SBT's -we will hold off on initiating further sedation until patient responds, will attempt to maintain his comfort with as needed medications until then -we will follow with ABG after SBT - Continue mechanical ventilation with lung protective strategy, - Continue dexamethasone , completed 10-day course of remdesivir - DuoNebs every 6 hours scheduled - Continue PPI and DVT prophylaxis - Continue tube feeding Total critical care time spent on this patient is 35 minutes managing acute hypoxic
[2020-07-16 11:13] LABS: Basophils # 0.2 K/mm3 (0-0.2); Basophils % 0.8 % (0.1-2.0); Hematocrit 45.6 % (42.0-52.0); Hemoglobin 14.9 g/dL (14.1-18.0); Lymphocytes # 0.4 K/mm3 (0.7-4.5); Lymphocytes % 1.6 % (10-50); Mean Corpuscular HGB Conc 32.8 g/dL (31.8-35.4); Mean Corpuscular Hemoglobin 30.9 pg (27.0-31.2); Mean Corpuscular Volume 94.2 fl (80-94); Monocytes # 1.2 K/mm3 (0.1-1.0); Monocytes % 4.8 % (1.7-9.3); Neutrophils % 92.8 % (37.0-80.0); Platelet Count 306 K/mm3 (142-424); Red Blood Count 4.84 M/mm3 (4.60-6.20); Red Cell Distribution Width 13.2 % (11.5-17.5); White Blood Count 25.9 K/mm3 (4.8-10.8)
[2020-07-16 11:18] LABS: MANUAL DIFFERENTIAL MANUAL DIFFERENTIAL (MANUAL DIFF)
[2020-07-16 11:46] LABS: Chloride 99 mmol/L (98-107); Sodium 139 mmol/L (136-145)
[2020-07-16 11:49] LABS: Alanine Aminotransferase 81 U/L (12-78); Albumin Level 2.7 g/dl (3.5-5.0); Albumin/Globulin Ratio 0.8 (1.1-1.8); Alkaline Phosphatase 83 U/L (38-126); Aspartate Amino Transferase 81 U/L (17-59); Bilirubin,Total 0.9 mg/dl (0.2-1.3); Carbon Dioxide 34 mmol/L (22.0-30.0); Creatinine Clearance Estimated 83 mL/min (50-200); Estimated Glomerular Filt Rate 84 ml/min (>60); GFR (African American) 102 ML/MIN (>60); Globulin 3.2 g/dL (1.3-3.2); Total Protein,Serum 5.9 g/dl (6.3-8.2)
[2020-07-16 11:50] LABS: Calcium 8.1 mg/dl (8.4-10.2); Glucose 338 mg/dl (74-100)
[2020-07-16 11:59] LABS: Blood Urea Nitrogen 77 mg/dl (9-20)
[2020-07-16 12:00] LABS: Anion Gap 12.8 mEq/L (5-15); Potassium 6.8 mmoL/L (3.5-5.1)
--- NOTE | 2020-07-16 12:01 | PC.NURSE ---
Dr. Chance notified of BUN 77 and K 6.8.
[2020-07-16 12:04] LABS: POC Glucose,Bedside 291 (70-110)
[2020-07-16 12:04] LABS: POC Glucose,Bedside 224 (70-110)
[2020-07-16 12:13] LABS: POC Glucose,Bedside 274 (70-110)
[2020-07-16 12:13] LABS: POC Glucose,Bedside 208 (70-110)
[2020-07-16 12:13] LABS: POC Glucose,Bedside 347 (70-110)
[2020-07-16 12:13] LABS: POC Glucose,Bedside 282 (70-110)
[2020-07-16 12:13] LABS: POC Glucose,Bedside 283 (70-110)
[2020-07-16 13:08] LABS: Lymphocytes % 3 % (10-50); Monocytes % 4 % (2-9); Neutrophils % 93 % (42-76); Platelet Estimate Normal; RBC Morphology Normal; Total Cells Counted 100
--- NOTE | 2020-07-16 15:17 | CT_ITS ---
PROCEDURE: CT HEAD/BRAIN WO CON CLINICAL INDICATION: AMS Altered mental status, altered level of consciousness, confusion, disorientation COMPARISON: CR XR CHEST PORTABLE from 07/13/2020 CR XR CHEST PORTABLE from 07/16/2020 TECHNIQUE: Axial images obtained. All CT scans at the facility use one or more dose reduction, viz: automated exposure control, ma/kV adjustment per patient size (including targeted exams where dose is matched to indication, i.e. head), or iterative reconstruction technique. FINDINGS: No midline shift, mass effect, intracranial hemorrhage, hydrocephalus, or extra-axial fluid collection is evident. Prominent cisterna magna. There is generalized atrophy with hypoattenuation of the periventricular white matter consistent with microangiopathic changes.. 6 mm hypodensity is present in the subinsular region on the left. Similar appearing 6 mm hypodensity in the right subinsular region. These may be due to choroid fissure cysts. No acute intracranial hemorrhage or mass effect. The calvarium has an unremarkable appearance. There is right mastoid effusion. Layering mucus or fluid noted in the oropharynx posteriorly and nasopharynx posteriorly. Small air-fluid level present in the left aspect of the sphenoid sinus. IMPRESSION: No definite acute intracranial findings. Dictated by: Michele Sheth MD 07/16/2020 16:43 Michele Sheth MD in [place] 07/16/2020 16:43
--- NOTE | 2020-07-16 15:45 | PC.NURSE ---
pt to CT scan with RN, RT (Karen), and basket grader (Parul)
--- NOTE | 2020-07-16 15:53 | DIET.NUTRFU ---
Addendum entered by Chela Mccabe 07/20/20 17:15: Pt tolerating tube feeds well at goal rate. BG avg. past 16ed=149 Pt with s/s GI bleed including bloody gastric aspirate. Medication changes made and pt to have transfusion, GI consult to follow if no improvement seen. He has continued without a BM. Recommend continuing tube feeds at current rate which is about 75% needs. Monitoring GI findings, continuing to monitor pt tolerance and fluids to alter as indicated. IVF dc'd- water flushes changed in TF order to 230ml q 4hr to meet additional fluid needs not provided by formula. Addendum entered by Chela Mccabe 07/18/20 13:31: Tube feeds stopped 07/16 at 16:00 restarted 07/17 at 3:00 at 10ml/hr, continuing to advance with current rate at 20ml/hr. 11# weight gain rt IVF. K normalized, other electrolyte labs not available. Decrease in hyperglycemia rt to TF changes, avg. past 43hp=434. Continued elevated BUN but with improvement. No BM recorded since 07/11- unclear if this is accurate. Concerning as only BM t/o stay was dark/tarry. Drop in H&H noted today as well. Pt receiving propofol, additional kcal provided insignificant at this time- monitoring propofol rate and rate advancement TF to alter as indicated. ordered IVF- water flushes changed in TF order to minimum flushes of 60-120ml for irrigation/GRV checks, resume flushes of 230ml q 4hr when IVF dc'd. Original Note: Pt with good tolerance tube feeds. Critical labs of 6.8K today and continued critical hyperglycemia. Recommend taking Magnesium and Phosphorus labs TF order goal rate slightly decreased to 46ml/hr to assist with electrolyte abnormality and BG control. Decrease rate by 8ml/hr once as tolerated. No change in fluids at this time, continue water flushes of 230ml q 4hr. Regimen at 46ml/hr provides 1656kcal, 69g protein, and 867ml free water. Continuing to monitor tolerance and alter as indicated.
--- NOTE | 2020-07-16 16:28 | PC.NURSE ---
tubefeed rate decreased to 46ml/hr per dieatary order
--- NOTE | 2020-07-16 16:43 | XR_ITS ---
PROCEDURE: XR CHEST PORTABLE CLINICAL HISTORY: pneumo mediastinal per Dr. Sheth Covid19 COMPARISON: CT CT ANGIO CHEST from 06/28/2020 CR XR CHEST PORTABLE from 07/12/2020 CR XR CHEST PORTABLE from 07/13/2020 CR XR CHEST PORTABLE from 07/16/2020 FINDINGS: Endotracheal tube and nasogastric tube are in good position. There is subcutaneous emphysema along the neck on both sides slightly more extensive on the left with pneumomediastinum noted and a small left apical pneumothorax. Pneumothorax is approximately 5 mm wide. There remains pneumonia in the lower lobes not significantly changed. IMPRESSION: 1. Subcutaneous emphysema with pneumomediastinum and small left apical pneumothorax. 2. Bilateral lower lobe pneumonia Dictated by: Michele Sheth MD 07/16/2020 17:41 Michele Sheth MD in [place] 07/16/2020 17:41
--- NOTE | 2020-07-16 17:00 | PC.NURSE ---
paged lópez GALVIN (Michael) as neuro check reveals that bilateral pupils are aprox 7mm and sluggish. When inline suctioned, pt gagged and started vomiting gastric contents. Mouth was immediately suctioned and obtained aprox 100mL. Tubefeeds turned OFF. Awaiting to hear back from .
[2020-07-16 17:32] LABS: POC Glucose,Bedside 278 (70-110)
--- NOTE | 2020-07-16 17:35 | PC.NURSE ---
paged Dr. Rodriguez again to let him know that per Dr. Sheth, pt has subcu air in the neck and left chest area. Pt also has a left pneumothorax.
--- NOTE | 2020-07-16 18:11 | PC.NURSE ---
Dr. Chance called to receive update. He will call Dr. Myles and discuss POC.
--- NOTE | 2020-07-16 18:46 | PC.NURSE ---
SBP 70s. Levo gtt started @ 10mcg/min
--- NOTE | 2020-07-16 18:48 | PC.NURSE ---
called oncall pharmacist (Jim Wiseman) for Vanc consult. He ordered Vancomycin 1500mg Q12hrs. Order faxed to [facility].
--- NOTE | 2020-07-16 19:02 | PC.NURSE ---
SBP 80s. Levo gtt increased to 20mcg/min.
--- NOTE | 2020-07-16 19:10 | CT_ITS ---
PROCEDURE: CT CHEST WO CON CLINICAL INDICATION: Pneumo covid, follow-up pneumomediastinum/pneumothorax COMPARISON: CT CT ANGIO CHEST from 06/28/2020 TECHNIQUE: Axial images obtained with sagittal and coronal reformats. All CT scans at the facility use one or more dose reduction, viz: automated exposure control, ma/kV adjustment per patient size (including targeted exams where dose is matched to indication, i.e. head), or iterative reconstruction technique. FINDINGS: Endotracheal tube is present. The tip is in good position 4.6 cm above the pj. Nasogastric tube tip is not visible on the image but is below the GE junction. There has been interval development of extensive pneumo mediastinum and subcutaneous air along the chest wall tracking into the neck on both sides.. Small bilateral pneumothoraces also suspected superiorly. There is extensive ground-glass attenuation of both upper and lower lobes with consolidation in the lower lobes posteriorly. There is a coronary artery stent present. No acute bony anomalies. No pleural effusions or cavitation. IMPRESSION: 1. Extensive pneumomediastinum with moderate soft tissue air tracking into the lower neck, bilateral supraclavicular distributions, bilateral axilla and anterior chest wall inferiorly. 2. Suspect small bilateral pneumothoraces versus extrapleural extension of air. 3. Endotracheal tube and nasogastric tube in good position. 4. Diffuse ground-glass attenuation of both lungs with scattered areas of more dense ground-glass opacity and consolidation. ARDS/pulmonary edema the with superimposed Covid19 pneumonia is considered. Dictated by: Michele Sheth MD 07/17/2020 06:13 Michele Sheth MD in [facility] 07/17/2020 06:13
--- NOTE | 2020-07-16 19:10 | XR_ITS ---
PROCEDURE: XR CHEST PORTABLE CLINICAL HISTORY: pneumo Covid19 pneumonia, pneumomediastinum COMPARISON: CT CT ANGIO CHEST from 06/28/2020 CR XR CHEST PORTABLE from 07/13/2020 CR XR CHEST PORTABLE from 07/16/2020 CR XR CHEST PORTABLE from 07/16/2020 FINDINGS: 1945 hours. Endotracheal tube and nasogastric tube are in good position. There is extensive subcutaneous emphysema with pneumomediastinum. Gas is tracking in both aspects of the neck and axillary region. The subcutaneous emphysema has progressed. Consolidation is present in both lower lobes right more extensive than left overall not significantly changed. IMPRESSION: Slight progression of extensive subcutaneous emphysema the with no change in pneumomediastinum and bilateral pneumonia with good position of endotracheal tube and nasogastric tube Dictated by: Michele Sheth MD 07/17/2020 06:37 Michele Sheth MD in [place] 07/17/2020 06:37
--- NOTE | 2020-07-16 19:11 | PC.NURSE ---
received call from Dr. Myles. He ordered a STAT CXR and a routine CT chest without contrast. He wants RN to call him after each test is complete. Both orders entered on his behalf.
[2020-07-16 19:55] LABS: Potassium 4.8 mmoL/L (3.5-5.1)
--- NOTE | 2020-07-16 20:35 | PC.NURSE ---
TURNED PATIENTS PEEP FROM 8 TO 5 PER ANNANGI ORDER. SATURATIONS STAYING ABOVE 90.
--- NOTE | 2020-07-16 20:40 | PC.NURSE ---
TOOK PT TO CT SCAN @ 1919, PLACED PT ON CHILD TRANSPORT VENT AT SAME SETTINGS OF VENTILATOR. INCREASED FIO2 TO 100% FOR TRANSPORT. RETURNED TO ROOM @ 2039. PT TOLERATED TRANSPORT WELL.
--- NOTE | 2020-07-16 21:01 | HMH.GSCON ---
*Admission Date: 06/27/20 *Reason for consult:: Left chest tube placement *History of present illness: Mr. Lehman is a 69-year-old male with a history of CAD status post stenting in 2017 currently on Plavix, hypertension, on metoprolol and losartan, diabetes on Metformin and pioglitazone, recent history of COVID-19 pneumonia on June 252020 presented to the emergency room complaining of worsening shortness of breath and pulmonary was called for further management and further questioning patient started having symptoms earlier this week with worsening cough and shortness of breath and he got tested positive and then he was really advised to come to the ER if symptoms are worsening and patient had worsening cough with fevers and productive phlegm. Patient admits decreased oral intake but adequately being hydrated for the last 3 to 4 days. Patient also admits an episode of dizziness before coming to the ED and patient was found to be orthostatic on presentation and was given fluid bolus. Never smoker. worked in the [employer] department previously. Denies any prior respiratory complaints never used inhalers before Patient has remained hospitalized since 06/27/2020. He has been on prolonged mechanical ventilation on high ventilator settings. Routine chest x-ray this morning revealed some subcutaneous emphysema. He underwent follow-up chest x-ray at approximately 5 PM and this revealed possible left-sided pneumothorax. Due to patient's clinical deterioration surgery was contacted approximately 7:30 PM for left chest tube placement. 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, left), Reports dizziness, Reports headache(s), Reports weakness, Denies numbness [facility] History I have reviewed the patient's past medical history: Yes Medical History: Reports:: Coronary Artery Disease (Stent placement March 2018.), Diabetes Mellitus Type 2, Gastroesophageal Reflux Disease(GERD), Hyperlipidemia, Hypertension Denies:: Cancer, Diabetes Mellitus Type 1, MRSA, Pulmonary Embolism *Have you ever received a pneumonia vaccine?: No *Have you received a flu vaccine this season?: Yes Other Medical History: Reports: Other Laterality Cases: Bilateral: Cataract (2018) Other Surgeries: Yes: Cardiac Catheterization, Coronary Stent, Other (Lumbar disc with fusion 2006) Amputation: Yes (left BKA) Fractures: Yes (left tib/fib) - *Social History Last grade of school completed: Some college Smoking Status: Never smoker Alcohol Intake: never Alcohol Intake Frequency:: holidays/special occasions only Substance Use Type: denies use *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) Housing: house Household Members: spouse *Travel in the last 8 weeks: None Family Hx:: Coronary Artery Disease, Other (1 son and 1 daughter, healthy) Meds Home Medications Medication Instructions Recorded Confirmed Type metformin 1,000 mg tablet 1,000 mg PO BID 04/08/18 06/28/20 History pantoprazole 40 mg tablet,delayed 40 mg PO DAILY 04/08/18 06/28/20 History release tamsulosin 0.4 mg capsule 0.4 mg PO DAILY 04/08/18 06/28/20 History dapagliflozin 10 mg tablet 10 mg PO DAILY 30 Days #30 tab 01/14/19 06/28/20 History Clopidogrel Bisulfate [Plavix] 75 mg PO DAILY 06/27/20 06/28/20 History Losartan Potassium [Cozaar 50mg 50 mg PO DAILY 06/27/20 06/28/20 History Tablets] Metoprolol Succinate [Metoprolol 25 mg PO DAILY 06/27/20 06/27/20 History Succinate 25mg Tablet*] Aspirin [Aspirin 81mg chewable 81 mg PO DAILY 06/28/20 06/28/20 History tab] Azithromycin 250 mg PO DAILY 06/28/20 06/28/20 History Ketorolac Tromethamine 1 drp EYE-RIGHT BID 06/28/20 06/28/20 History Prednisolone Acetate/Pf 1 drop OP BID 06/28/20 06/28/20 History [Prednisolone Acet 1% Eye Drop] Atorvastatin Calcium [Lipitor 40mg 40 mg PO DAILY 06/29/20 06/29/20 History Tab] Multivitamin 1 each PO DAILY 06/29/20
[2020-07-16 22:20] LABS: POC Glucose,Bedside 179 (70-110)
[2020-07-17] VITALS (31 sets, daily range): BP systolic 92–118; BP diastolic 52–84; PULSE 87–125; RESP 24–27; TEMP 36.3–38.3; O2SAT 88–96; BMI 23.5
[2020-07-17 01:54] LABS: POC Glucose,Bedside 87 (70-110)
--- NOTE | 2020-07-17 03:10 | PC.NURSE ---
INCREASED PTS FIO2 FROM 60% TO 70% AT THIS TIME DUE TO LOW SATURATIONS.
[2020-07-17 03:49] LABS: POC Glucose,Bedside 124 (70-110)
--- NOTE | 2020-07-17 07:14 | XR_ITS ---
PROCEDURE: XR CHEST PORTABLE CLINICAL HISTORY: resp failure COMPARISON: CR XR CHEST PORTABLE from 07/16/[address] CHEST WO CON from 07/16/2020 CR XR CHEST PORTABLE from 07/16/2020 CR XR CHEST PORTABLE from 07/16/2020 FINDINGS: 7:25 a.m.. Endotracheal tube and nasogastric tube remain in good position. Continued bilateral lower lobe pneumonia. Diffuse subcutaneous emphysema and pneumomediastinum noted not significantly changed. No obvious pneumothorax. No acute bony abnormalities. IMPRESSION: No change tubes and lines with bilateral pneumonia and subcutaneous emphysema and pneumomediastinum Dictated by: Michele hSeth MD 07/17/2020 09:06 Michele Sheth MD in [place] 07/17/2020 09:06
[2020-07-17 07:25] LABS: ABG Base Excess 10.3 mmol/L (-2.4-2.3); ABG HCO3 34.9 mmhg (22.0-26.0); ABG Oxygen Saturation 90 % (90-100); ABG PH 7.42 mmol/L (7.35-7.45); ABG PO2 58.5 mmhg (80-100); ABG TCO2 36.6 mmhg (23-27)
[2020-07-17 07:30] LABS: Oxygen 70 %; PEEP 8; Source Right Radial; Tidal Volume 480; Vent Rate 24
[2020-07-17 07:31] LABS: ABG PCO2 55.6 mmhg (35.0-45.0)
--- NOTE | 2020-07-17 07:39 | PC.NURSE ---
BP 85/51. Levo gtt increased to 12mcg/min.
--- NOTE | 2020-07-17 07:59 | HMH.PHACONS ---
- Pharmacy Consult Date: 07/17/20 Time: 08:00 Referring provider: DR. HAMMOND Reason for Consult:: VANCOMYCIN DOSING Allergies and ADEs:: Allergies Allergy/AdvReac Type Severity Reaction Status Date / Time ceftriaxone [From Rocephin] Allergy Mild Verified 05/24/20 09:28 Home Medications:: Home Medications Medication Instructions Recorded Confirmed Type metformin 1,000 mg tablet 1,000 mg PO BID 04/08/18 06/28/20 History pantoprazole 40 mg tablet,delayed 40 mg PO DAILY 04/08/18 06/28/20 History release tamsulosin 0.4 mg capsule 0.4 mg PO DAILY 04/08/18 06/28/20 History dapagliflozin 10 mg tablet 10 mg PO DAILY 30 Days #30 tab 01/14/19 06/28/20 History Clopidogrel Bisulfate [Plavix] 75 mg PO DAILY 06/27/20 06/28/20 History Losartan Potassium [Cozaar 50mg 50 mg PO DAILY 06/27/20 06/28/20 History Tablets] Metoprolol Succinate [Metoprolol 25 mg PO DAILY 06/27/20 06/27/20 History Succinate 25mg Tablet*] Aspirin [Aspirin 81mg chewable 81 mg PO DAILY 06/28/20 06/28/20 History tab] Azithromycin 250 mg PO DAILY 06/28/20 06/28/20 History Ketorolac Tromethamine 1 drp EYE-RIGHT BID 06/28/20 06/28/20 History Prednisolone Acetate/Pf 1 drop OP BID 06/28/20 06/28/20 History [Prednisolone Acet 1% Eye Drop] Atorvastatin Calcium [Lipitor 40mg 40 mg PO DAILY 06/29/20 06/29/20 History Tab] Multivitamin 1 each PO DAILY 06/29/20 06/29/20 History Height: 1.88 m Weight: 83.206 kg Laboratory Results:: Laboratory Results - last 24 hr 07/14/20 16:15: POC Glucose 283 H 07/14/20 20:35: POC Glucose 274 H 07/15/20 05:29: POC Glucose 282 H 07/15/20 15:54: POC Glucose 224 H 07/15/20 21:12: POC Glucose 291 H 07/16/20 05:32: POC Glucose 208 H 07/16/20 08:20: Specimen Source Left radial, O2 % 60, ABG pH 7.42, ABG pCO2 55.5 H, ABG pO2 71.6 L, ABG HCO3 34.9 H, ABG Total CO2 36.7 H, ABG O2 Saturation 94, ABG Base Excess 10.4 H, Michele Test Patient unable, PEEP 8 07/16/20 10:49: WBC 25.9 H*, RBC 4.84, Hgb 14.9, Hct 45.6, MCV 94.2 H, MCH 30.9, MCHC 32.8, RDW 13.2, Plt Count 306 D, MPV 10.0, Neut % (Auto) 92.8 H, Lymph % (Auto) 1.6 L, [place] % (Auto) 4.8, Eos % (Auto) 0.0 L, Baso % (Auto) 0.8, Neut # (Auto) 24.0 H, Lymph # (Auto) 0.4 L, [place] # (Auto) 1.2 H, Eos # (Auto) 0.0, Baso # (Auto) 0.2, Total Counted 100, Neutrophils % (Manual) 93 H, Lymphocytes % (Manual) 3 L, Monocytes % (Manual) 4, Platelet Estimate Normal, RBC Morphology Normal 07/16/20 10:49: Sodium 139, Potassium 6.8 H*, Chloride 99, Carbon Dioxide 34 H, Anion Gap 12.8, BUN 77 H, Creatinine 0.90, Estimated Creat Clear 83, Estimated GFR 84, Est GFR ( Amer) 102, Glucose 338 H, Calcium 8.1 L, Total Bilirubin 0.9, AST 81 H, ALT 81 H, Alkaline Phosphatase 83, Total Protein 5.9 L, Albumin 2.7 L, Globulin 3.2, Albumin/Globulin Ratio 0.8 L 07/16/20 12:06: POC Glucose 347 H* 07/16/20 17:24: POC Glucose 278 H 07/16/20 19:38: Potassium 4.8 D 07/16/20 22:13: POC Glucose 179 H 07/17/20 01:37: POC Glucose 87 07/17/20 03:42: POC Glucose 124 H 07/17/20 06:46: Specimen Source Right radial, O2 % 70, ABG pH 7.42, ABG pCO2 55.6 H, ABG pO2 58.5 L, ABG HCO3 34.9 H, ABG Total CO2 36.6 H, ABG O2 Saturation 90, ABG Base Excess 10.3 H, Michele Test N/a, Vent Rate 24, Tidal Volume 480, PEEP 8 Medical History: Reports:: Coronary Artery Disease (Stent placement March 2018.), Diabetes Mellitus Type 2, Gastroesophageal Reflux Disease(GERD), Hyperlipidemia, Hypertension Denies:: Cancer, Diabetes Mellitus Type 1, MRSA, Pulmonary Embolism Assessment and Plan (1) Pneumonia due to COVID-19 virus Status: Acute Category: Medical Code(s): U07.1 - COVID-19; J12.82 - Pneumonia due to coronavirus disease 2018 (2) Respiratory failure with hypoxia Status: Acute Qualifiers: Chronicity: acute Qualified Code(s): J96.01 - Acute respiratory failure with hypoxia Category: Medical Code(s): J96.91 - Respiratory failure, unspecified with hypoxia (3) CAD (coronary artery disease), [place]
[2020-07-17 08:14] LABS: POC Glucose,Bedside 153 (70-110)
--- NOTE | 2020-07-17 08:25 | ECG_ITS ---
APPROVED REPORT Exam: Resting ECG HR:125 bpm ECG Measurements Heart Rate 125 AXES MA 120 P 12 QRSd 70 QRS -57 QT 346 T 66 QTc 499 Conclusion Sinus tachycardia with premature supraventricular complexes Left anterior fascicular block Abnormal ECG Electronically signed by : Carlos Sims, 07/18/2020 05:58:00
--- NOTE | 2020-07-17 08:51 | HMH.ACPN2 ---
Internal Medicine - PN: Rey *Date: 07/17/20 *Time: 09:23 Interval history: Pt found to have subcutaneous air yesterday, he vomited once and BP dropped. Tube feeds were stopped for a while and Levophed was resumed. Pt had CT of head and chest yesterday. BP still a little low this morning. Exam Vital signs and Labs for Last 24 Hours: Temp Pulse Resp BP Pulse Ox 100.6 F H 123 H 24 97/53 L 94 L 07/17/20 08:00 07/17/20 08:00 07/17/20 08:00 07/17/20 08:00 07/17/20 08:00 Laboratory Results - last 24 hr 07/14/20 16:15: POC Glucose 283 H 07/14/20 20:35: POC Glucose 274 H 07/15/20 05:29: POC Glucose 282 H 07/15/20 15:54: POC Glucose 224 H 07/15/20 21:12: POC Glucose 291 H 07/16/20 05:32: POC Glucose 208 H 07/16/20 10:49: WBC 25.9 H*, RBC 4.84, Hgb 14.9, Hct 45.6, MCV 94.2 H, MCH 30.9, MCHC 32.8, RDW 13.2, Plt Count 306 D, MPV 10.0, Neut % (Auto) 92.8 H, Lymph % (Auto) 1.6 L, [place] % (Auto) 4.8, Eos % (Auto) 0.0 L, Baso % (Auto) 0.8, Neut # (Auto) 24.0 H, Lymph # (Auto) 0.4 L, [place] # (Auto) 1.2 H, Eos # (Auto) 0.0, Baso # (Auto) 0.2, Total Counted 100, Neutrophils % (Manual) 93 H, Lymphocytes % (Manual) 3 L, Monocytes % (Manual) 4, Platelet Estimate Normal, RBC Morphology Normal 07/16/20 10:49: Sodium 139, Potassium 6.8 H*, Chloride 99, Carbon Dioxide 34 H, Anion Gap 12.8, BUN 77 H, Creatinine 0.90, Estimated Creat Clear 83, Estimated GFR 84, Est GFR ( Amer) 102, Glucose 338 H, Calcium 8.1 L, Total Bilirubin 0.9, AST 81 H, ALT 81 H, Alkaline Phosphatase 83, Total Protein 5.9 L, Albumin 2.7 L, Globulin 3.2, Albumin/Globulin Ratio 0.8 L 07/16/20 12:06: POC Glucose 347 H* 07/16/20 17:24: POC Glucose 278 H 07/16/20 19:38: Potassium 4.8 D 07/16/20 22:13: POC Glucose 179 H 07/17/20 01:37: POC Glucose 87 07/17/20 03:42: POC Glucose 124 H 07/17/20 06:46: Specimen Source Right radial, O2 % 70, ABG pH 7.42, ABG pCO2 55.6 H, ABG pO2 58.5 L, ABG HCO3 34.9 H, ABG Total CO2 36.6 H, ABG O2 Saturation 90, ABG Base Excess 10.3 H, Michele Test N/a, Vent Rate 24, Tidal Volume 480, PEEP 8 07/17/20 08:07: POC Glucose 153 H Vital Signs - 24 hr 07/16/20 09:00 07/16/20 10:00 07/16/20 10:50 Temperature Pulse Rate Pulse Rate [Apical] 125 H 124 H Respiratory Rate 30 H 28 H 32 H Blood Pressure [Right Arm] 117/71 114/74 02 Sat by Pulse Oximetry 93 L 94 L 94 L 07/16/20 11:00 07/16/20 12:00 07/16/20 12:14 Temperature 97.9 F Pulse Rate 112 H Pulse Rate [Apical] 105 H 114 H Respiratory Rate 28 H 30 H Blood Pressure [Right Arm] 110/71 104/65 L 02 Sat by Pulse Oximetry 94 L 93 L 94 L 07/16/20 12:31 07/16/20 13:00 07/16/20 13:35 Temperature 99.2 F Pulse Rate 123 H Pulse Rate [Apical] 119 H Respiratory Rate 27 H 34 H Blood Pressure [Right Arm] 119/71 02 Sat by Pulse Oximetry 99 99 07/16/20 14:00 07/16/20 15:00 07/16/20 16:00 Temperature Pulse Rate 131 H Pulse Rate [Apical] 122 H 125 H 134 H Respiratory Rate 30 H 32 H 25 H Blood Pressure [Right Arm] 107/61 L 102/69 L 122/70 02 Sat by Pulse Oximetry 100 93 L 99 07/16/20 17:00 07/16/20 18:00 07/16/20 19:00 Temperature Pulse Rate Pulse Rate [Apical] 125 H 130 H 128 H Respiratory Rate 30 H 26 H 24 Blood Pressure [Right Arm] 101/55 L 103/59 L 86/43 L 02 Sat by Pulse Oximetry 96 93 L 96 07/16/20 19:01 07/16/20 19:15 07/16/20 19:30 Temperature Pulse Rate 130 H Pulse Rate [Apical] 66 138 H Respiratory Rate 25 H 24 25 H Blood Pressure [Right Arm] 104/56 L 111/64 02 Sat by Pulse Oximetry 98 96 95 07/16/20 20:00 07/16/20 20:40 07/16/20 20:45 Temperature 98.7 F Pulse Rate 110 H Pulse Rate [Apical] 104 H 138 H Respiratory Rate 24 25 H 25 H Blood Pressure [Right Arm] 99/76 L 101/66 L 02 Sat by Pulse Oximetry 94 L 92 L 95 07/16/20 21:00 07/16/20 21:15 07/16/20 21:30 Temperature 100.6 F H Pulse Rate Pulse Rate [Apical] 138 H 134 H 134 H Respiratory Rate 26 H 23 26 H Blood Pressure [Right Arm] 114/67 114/67 119/68
--- NOTE | 2020-07-17 09:15 | CA_ITS ---
APPROVED REPORT EXAM: Comprehensive 2D, Doppler, and color-flow Echocardiogram Mobile Sales Assistant: Georgina Canas CRT Ht: 6 ft 2 in Wt: 183lbs BSA: 2.09 BP: 97/53 mmHg Indications: Covid +, stent, intubated, subcutaneous emphysema, GERD, M-Mode Dimensions RVDd 2.81 cm (0.9-2.6) LVDd 3.12 cm (3.5-5.7) LVDs 2.27 cm (3.5-5.7) IVSd 1.87 cm (0.6-1.1) PWd 1.65 cm (0.6-1.1) EF (Teich) 54.50% FS 27.20% EDV (Teich) 38.50 mL ESV (Teich) 17.50 mL Tricuspid Valve TR P. Velocity 322.00 cm/s RAP Estimate 10.00 mmHg RVSP 51.40 mmHg Left Ventricle Technically very difficult study because of the patient fact in poor acoustic windows, only subcostal views were obtained. Normal left ventricular size, preserved left ventricular systolic function visually estimated ejection fraction 55% with no regional wall motion abnormality, endocardial surfaces are poorly visualized. Diastolic parameters are inconclusive. Right Ventricle Right-sided chambers appears to be grossly normal size and contractility. Aortic Valve Aortic valve is minimally thickened and fibrosed, there is no aortic stenosis, presence of aortic insufficiency cannot be excluded. Mitral Valve Mitral valve appears to be grossly normal, there is mild mitral regurgitation. Tricuspid Valve Tricuspid valve is grossly normal, there is trace tricuspid regurgitation. Pulmonic Valve Pulmonic valve is poorly visualized. Great Vessels Aortic root is not well-visualized. Pericardium No significant pericardial effusion noted. Conclusion 1. Technically difficult and limited study history described above. Probably preserved left ventricular systolic function, visually estimated ejection fraction 55% with no obvious regional wall motion abnormality in the obtained views, diastolic parameters are inconclusive. 2. No significant pericardial effusion noted. Electronically signed by : Ollie Guerrero, 07/17/2020 20:50:30
--- NOTE | 2020-07-17 09:49 | PC.NURSE ---
SBP 90s. Levo gtt increased to 20mcg/min. Dr. Myles @ [facility] doing US.
--- NOTE | 2020-07-17 10:12 | PC.NURSE ---
paged Dr. Franco for central line insertion secondary to infusing pressors and pt being an extremely hard IV stick for PIVs and labs. Dr. Myles recommended a deep line. Dr. Chance agrees.
--- NOTE | 2020-07-17 10:41 | HMH.PULMPN ---
Internal Medicine - PN: Subj *Date: 07/17/20 *Time: 10:41 Interval history: Patient developed new onset pneumomediastinum and shock yesterday. Assessment and Plan (1) Pneumonia due to COVID-19 virus Status: Acute Category: Medical Code(s): U07.1 - COVID-19; J12.82 - Pneumonia due to coronavirus disease 2019 (2) Respiratory failure with hypoxia Status: Acute Qualifiers: Chronicity: acute Qualified Code(s): J96.01 - Acute respiratory failure with hypoxia Category: Medical Code(s): J96.91 - Respiratory failure, unspecified with hypoxia (3) CAD (coronary artery disease), [place] coronary artery Status: Chronic Qualifiers: [place] vs. transplanted heart: [place] heart Associated angina: without angina Qualified Code(s): I25.10 - Atherosclerotic heart disease of [place] coronary artery without angina pectoris Category: Medical Code(s): I25.10 - Atherosclerotic heart disease of [place] coronary artery without angina pectoris (4) DM2 (diabetes mellitus, type 2) Status: Chronic Qualifiers: Diabetes mellitus shelter insulin use: without termination clerk use Diabetes mellitus complication status: without complication Qualified Code(s): E11.9 - Type 2 diabetes mellitus without complications Category: Medical Code(s): E11.9 - Type 2 diabetes mellitus without complications (5) Tachycardia Status: Acute Category: Medical Code(s): R00.0 - Tachycardia, unspecified - Assessment and plan all Dx Assessment and Plan for all problems:: #COVID-19 pneumonia: #Acute hypoxic respiratory failure requiring mechanical ventilation: 69-year-old no prior respiratory complaints never smoker with recent diagnosis of COVID-19 present with worsening respiratory failure cough and productive phlegm. CT showed bilateral diffuse pulmonary infiltrates. No evidence of acute pulmonary embolism. Patient respiratory status gradually worsened throughout his hospital course with increasing oxygen requirements to BiPAP,. Patient was initially DNR/DNI change his CODE STATUS to full code given his worsening respiratory status and severe respiratory distress patient was eventually intubated on December 03, 2020. Patient respiratory status has been gradually improving since admission. Patient received 1 unit of convalescent plasma per repeat D-dimer during hospital course elevated at 8, however repeat lower extremity Doppler negative so opted to continue with prophylactic anticoagulation. Patient completed a course of vancomycin and Zosyn and also 10-day course of remdesivir. Interval update: Patient respiratory status has been stable on minimal vent settings waiting for his mentation to improve however unfortunately patient yesterday found to have pneumomediastinum with subcutaneous air on chest x-ray followed by CT scan that showed diffuse subcutaneous air in the neck and left chest wall. No evident pneumothorax noted. Patient also developed new shock needing vasopressor requirements with was concerning at that point for tension pneumothorax and surgery was called for placement of chest tube however after reviewing the CT it was deemed that patient will not benefit from a chest tube which I completely agree. Patient was also initiated on vancomycin and Zosyn given new onset shock and obtain the blood cultures. Patient also given 2 L lactated Ringer bolus yesterday. On bedside ultrasound patient appeared to be volume depleted and a 1 L bolus was ordered this morning. Chest x-ray unchanged from yesterday showed persistent subcutaneous air. ABG showed hypoxic respiratory failure with elevated PCO2 compensated with normal pH. Plan: -Continue current vent settings, continue hold off sedation patient wakes up. We will monitor his respiratory status closely -Continue dexamethasone -Consider continuing vancomycin and Zosyn until blood culture results. - DuoNebs every 6 hours scheduled - Continue PPI and DVT prophylaxis - Continue tube fe
[2020-07-17 11:29] LABS: POC Glucose,Bedside 128 (70-110)
[2020-07-17 12:03] LABS: POC Glucose,Bedside 221 (70-110)
--- NOTE | 2020-07-17 13:28 | XR_ITS ---
PROCEDURE: XR CHEST PORTABLE CLINICAL HISTORY: left subclavian placement Follow-up line placement COMPARISON: CR XR CHEST PORTABLE from 07/16/[address] CHEST WO CON from 07/16/2020 CR XR CHEST PORTABLE from 07/16/2020 CR XR CHEST PORTABLE from 07/17/2020 FINDINGS: 1341 hours. Left subclavian central venous line has been placed. The tip is in good position in the region the superior vena cava. There is diffuse subcutaneous emphysema and pneumomediastinum. No obvious pneumothorax. Endotracheal tube and nasogastric tube are in good position. No change bilateral pneumonia No acute bony abnormalities. IMPRESSION: Central venous line nasogastric tube and endotracheal tube are all in good position. No change diffuse subcutaneous emphysema, pneumomediastinum, and bilateral pneumonia Dictated by: Michele hSeth MD 07/17/2020 14:41 Michele Sheth MD in [place] 07/17/2020 14:41
--- NOTE | 2020-07-17 13:36 | PC.NURSE ---
Dr. Franco placed a left SC TLDL.
--- NOTE | 2020-07-17 13:42 | P.PCN_ITS ---
[facility] Procedure Note Procedure Note:: Preoperative diagnosis: Need for central venous access Postoperative diagnosis: Same Procedure performed: Placement of 7 Brazilian triple-lumen nontunneled catheter and left subclavian vein Anesthesia: 1% Xylocaine Indications: Patient is a 69-year-old male with Covid pneumonia mechanically ventilated on pressors. Pulmonology asked for surgery to place central venous catheter. Procedure: Consent was obtained. Patient was positioned in Trendelenburg position. Left neck and chest were prepped and draped in the standard surgical fashion. Local anesthetic was infiltrated inferior to the left clavicle. 18- gauge needle was inserted inferior to the left clavicle manipulating it posterior to the clavicle. Ultimately the left subclavian vein was cannulated with tenuous return of blood flow. However, wire easily advanced. Small incision was made at the insertion site. Subcutaneous tissues were dilated. 7 Brazilian triple-lumen catheter was inserted over the guidewire using Seldinger technique. It was secured at the skin at approximately 17 cm with silk suture. Clean dry sterile dressing was applied. All ports aspirated and flushed without difficulty.
--- NOTE | 2020-07-17 15:08 | PC.NURSE ---
received call from Dr. Chance. He ordered the followin/2NS + 20K @ 100mL/hr x 2 bags and AM labs ( CMP and CBC). Fluid order faxed to pharmacy and labs entered on his behalf.
--- NOTE | 2020-07-17 15:45 | PC.NURSE ---
pt bathed and all linens changed. Butterfly dressing placed on pt's coccyx as he has a stage II to the area.
--- NOTE | 2020-07-17 16:00 | PC.NURSE ---
tubefeed rate increased to 20ml/hr. Gastric residuals have been the following today: 100mL @ 0800, 10mL @ 1200, and 10mL @ 1600.
--- NOTE | 2020-07-17 16:48 | PC.NURSE ---
BP 118/67. Levo gtt decreased to 16mcg/min.
--- NOTE | 2020-07-17 18:41 | PC.NURSE ---
BP 114/59. Levo gtt decreased to 14mcg/min
--- NOTE | 2020-07-17 23:42 | PC.NURSE ---
He continues on contact and airborne precautions. He is intubated and sedated. Current vent settings are : AC mode, TV 480, R 24, PEEP 5, 70% FiO2; with plans to wean to 60% FiO2 is he tolerates. His HOB is elevated. Ambu bag is at the bedside. He continues with q 4 hour neuro checks. Spontaneous eye opening. Continues on levophed. He has a LBKA. Voiding per f/c. His urine is dark yellow, clear. Scattered bruising noted to BUE. DSG in place on coccyx. 1+ edema noted to right foot with 2 bruises. Febrile-acetaminophen given. Residual was 0 at 2000. FSBS 139 @ 2000.
[2020-07-18] VITALS (26 sets, daily range): BP systolic 98–124; BP diastolic 47–68; PULSE 84–111; RESP 21–33; TEMP 37–38.1; O2SAT 88–96; BMI 24.9
--- NOTE | 2020-07-18 02:18 | PC.NURSE ---
Moving his arms at head at times.
--- NOTE | 2020-07-18 05:00 | XR_ITS ---
PROCEDURE: XR CHEST PORTABLE CLINICAL HISTORY: Pt intubated. Follow-up Covid19 pneumonia COMPARISON: CR XR CHEST PORTABLE from 07/16/[address] CHEST WO CON from 07/16/2020 CR XR CHEST PORTABLE from 07/17/2020 CR XR CHEST PORTABLE from 07/17/2020 FINDINGS: 5:36 a.m. Endotracheal tube, left subclavian central venous line, and orogastric tube are all in good position. Bilateral lower lobe pneumonia once again noted with diffuse subcutaneous emphysema and pneumomediastinum. The subcu air and pneumo mediastinum appears somewhat improved. IMPRESSION: Tubes and lines in good position with no change in the bilateral pneumonia with some improvement in the subcutaneous emphysema and pneumomediastinum Dictated by: Michele Sheth MD 07/18/2020 06:06 Michele Sheth MD in [place] 07/18/2020 06:06
[2020-07-18 07:04] LABS: ABG Base Excess 8.9 mmol/L (-2.4-2.3); ABG HCO3 33.6 mmhg (22.0-26.0); ABG PH 7.41 mmol/L (7.35-7.45); ABG PO2 72.7 mmhg (80-100); ABG TCO2 35.3 mmhg (23-27)
[2020-07-18 07:11] LABS: Allen's Test Patient Unable; Oxygen 80 %; PEEP 5; Source Right Radial; Tidal Volume 480; Vent Rate 24
[2020-07-18 07:13] LABS: ABG PCO2 54.7 mmhg (35.0-45.0)
[2020-07-18 08:03] LABS: Basophils # 0.1 K/mm3 (0-0.2); Basophils % 0.3 % (0.1-2.0); Eosinophils # 0.1 K/mm3 (0.0-0.4); Eosinophils % 0.3 % (0.1-12.0); Hematocrit 30.2 % (42.0-52.0); Hemoglobin 9.3 g/dL (14.1-18.0); Lymphocytes # 1.1 K/mm3 (0.7-4.5); Lymphocytes % 5.2 % (10-50); Mean Corpuscular HGB Conc 30.8 g/dL (31.8-35.4); Mean Corpuscular Hemoglobin 29.8 pg (27.0-31.2); Mean Platelet Volume 9.4 fl (7.4-10.4); Monocytes # 1.5 K/mm3 (0.1-1.0); Monocytes % 6.9 % (1.7-9.3); Neutrophils # 19.3 K/mm3 (1.8-7.8); Neutrophils % 87.4 % (37.0-80.0); Platelet Count 272 K/mm3 (142-424); Red Blood Count 3.12 M/mm3 (4.60-6.20); White Blood Count 22.1 K/mm3 (4.8-10.8)
[2020-07-18 08:06] LABS: MANUAL DIFFERENTIAL MANUAL DIFFERENTIAL (MANUAL DIFF)
[2020-07-18 08:10] LABS: Alanine Aminotransferase 91 U/L (12-78); Albumin Level 2.2 g/dl (3.5-5.0); Albumin/Globulin Ratio 0.8 (1.1-1.8); Alkaline Phosphatase 69 U/L (38-126); Aspartate Amino Transferase 130 U/L (17-59); Bilirubin,Total 0.6 mg/dl (0.2-1.3); Blood Urea Nitrogen 74 mg/dl (9-20); Calcium 7.3 mg/dl (8.4-10.2); Chloride 101 mmol/L (98-107); Creatinine Clearance Estimated 73 mL/min (50-200); Estimated Glomerular Filt Rate 60 ml/min (>60); GFR (African American) 73 ML/MIN (>60); Globulin 2.6 g/dL (1.3-3.2); Glucose 164 mg/dl (74-100); Potassium 4.4 mmoL/L (3.5-5.1); Sodium 141 mmol/L (136-145); Total Protein,Serum 4.8 g/dl (6.3-8.2)
[2020-07-18 08:18] LABS: Anion Gap 6.4 mEq/L (5-15); Carbon Dioxide 38 mmol/L (22.0-30.0)
[2020-07-18 08:20] LABS: Vancomycin,Trough 14.5 ug/mL (5.0-10.0)
[2020-07-18 08:36] LABS: Lymphocytes % 6 % (10-50); Monocytes % 6 % (2-9); Neutrophils % 88 % (42-76); Platelet Estimate Normal; RBC Morphology Normal; Total Cells Counted 100
--- NOTE | 2020-07-18 09:25 | HMH.PHACONS ---
- Pharmacy Consult Date: 07/18/20 Time: 09:26 Referring provider: DR. HAMMOND Reason for Consult:: VANCOMYCIN TROUGH LEVEL Allergies and ADEs:: Allergies Allergy/AdvReac Type Severity Reaction Status Date / Time ceftriaxone [From Rocephin] Allergy Mild Verified 05/24/20 09:28 Home Medications:: Home Medications Medication Instructions Recorded Confirmed Type metformin 1,000 mg tablet 1,000 mg PO BID 04/08/18 06/28/20 History pantoprazole 40 mg tablet,delayed 40 mg PO DAILY 04/08/18 06/28/20 History release tamsulosin 0.4 mg capsule 0.4 mg PO DAILY 04/08/18 06/28/20 History dapagliflozin 10 mg tablet 10 mg PO DAILY 30 Days #30 tab 01/14/19 06/28/20 History Clopidogrel Bisulfate [Plavix] 75 mg PO DAILY 06/27/20 06/28/20 History Losartan Potassium [Cozaar 50mg 50 mg PO DAILY 06/27/20 06/28/20 History Tablets] Metoprolol Succinate [Metoprolol 25 mg PO DAILY 06/27/20 06/27/20 History Succinate 25mg Tablet*] Aspirin [Aspirin 81mg chewable 81 mg PO DAILY 06/28/20 06/28/20 History tab] Azithromycin 250 mg PO DAILY 06/28/20 06/28/20 History Ketorolac Tromethamine 1 drp EYE-RIGHT BID 06/28/20 06/28/20 History Prednisolone Acetate/Pf 1 drop OP BID 06/28/20 06/28/20 History [Prednisolone Acet 1% Eye Drop] Atorvastatin Calcium [Lipitor 40mg 40 mg PO DAILY 06/29/20 06/29/20 History Tab] Multivitamin 1 each PO DAILY 06/29/20 06/29/20 History Height: 1.88 m Weight: 88.133 kg Laboratory Results:: Laboratory Results - last 24 hr 07/17/20 06:13: POC Glucose 128 H 07/17/20 11:56: POC Glucose 221 H 07/18/20 06:45: Vancomycin Trough 14.5 H 07/18/20 06:45: WBC 22.1 H*, RBC 3.12 L D, Hgb 9.3 L, Hct 30.2 L, MCV 97.0 H, MCH 29.8, MCHC 30.8 L, RDW 13.0, Plt Count 272, MPV 9.4, Neut % (Auto) 87.4 H, Lymph % (Auto) 5.2 L, [place] % (Auto) 6.9, Eos % (Auto) 0.3, Baso % (Auto) 0.3, Neut # (Auto) 19.3 H, Lymph # (Auto) 1.1, [place] # (Auto) 1.5 H, Eos # (Auto) 0.1, Baso # (Auto) 0.1, Total Counted 100, Neutrophils % (Manual) 88 H, Lymphocytes % (Manual) 6 L, Monocytes % (Manual) 6, Platelet Estimate Normal, RBC Morphology Normal 07/18/20 06:45: Sodium 141, Potassium 4.4, Chloride 101, Carbon Dioxide 38 H, Anion Gap 6.4, BUN 74 H, Creatinine 1.20 D, Estimated Creat Clear 73, Estimated GFR 60, Est GFR ( Amer) 73 D, Glucose 164 H, Calcium 7.3 L, Total Bilirubin 0.6, AST 130 H D, ALT 91 H, Alkaline Phosphatase 69, Total Protein 4.8 L, Albumin 2.2 L, Globulin 2.6, Albumin/Globulin Ratio 0.8 L 07/18/20 07:03: Specimen Source Right radial, O2 % 80, ABG pH 7.41, ABG pCO2 54.7 H, ABG pO2 72.7 L, ABG HCO3 33.6 H, ABG Total CO2 35.3 H, ABG Base Excess 8.9 H, Michele Test Patient unable, Vent Rate 24, Tidal Volume 480, PEEP 5 Medical History: Reports:: Coronary Artery Disease (Stent placement March 2018.), Diabetes Mellitus Type 2, Gastroesophageal Reflux Disease(GERD), Hyperlipidemia, Hypertension Denies:: Cancer, Diabetes Mellitus Type 1, MRSA, Pulmonary Embolism Assessment and Plan (1) Pneumonia due to COVID-19 virus Status: Acute Category: Medical Code(s): U07.1 - COVID-19; J12.82 - Pneumonia due to coronavirus disease 2018 (2) Respiratory failure with hypoxia Status: Acute Qualifiers: Chronicity: acute Qualified Code(s): J96.01 - Acute respiratory failure with hypoxia Category: Medical Code(s): J96.91 - Respiratory failure, unspecified with hypoxia (3) CAD (coronary artery disease), [place] coronary artery Status: Chronic Qualifiers: [place] vs. transplanted heart: [place] heart Associated angina: without angina Qualified Code(s): I25.10 - Atherosclerotic heart disease of [place] coronary artery without angina pectoris Category: Medical Code(s): I25.10 - Atherosclerotic heart disease of [place] coronary artery without angina pectoris (4) DM2 (diabetes mellitus, type 2) Status: Chronic Qualifiers: Diabetes mellitus salvage determiner insulin use: without skilled nursing use Diabetes mellitus
--- NOTE | 2020-07-18 10:15 | HMH.ACPN2 ---
Internal Medicine - PN: Rey *Date: 07/18/20 *Time: 10:15 Interval history: No new events noted overnight. Exam Vital signs and Labs for Last 24 Hours: Temp Pulse Resp BP Pulse Ox 98.6 F 102 H 33 H 111/64 91 L 07/18/20 04:00 07/18/20 06:55 07/18/20 06:20 07/18/20 06:55 07/18/20 06:55 Laboratory Results - last 24 hr 07/17/20 06:13: POC Glucose 128 H 07/17/20 11:56: POC Glucose 221 H 07/18/20 06:45: Vancomycin Trough 14.5 H 07/18/20 06:45: WBC 22.1 H*, RBC 3.12 L D, Hgb 9.3 L, Hct 30.2 L, MCV 97.0 H, MCH 29.8, MCHC 30.8 L, RDW 13.0, Plt Count 272, MPV 9.4, Neut % (Auto) 87.4 H, Lymph % (Auto) 5.2 L, [place] % (Auto) 6.9, Eos % (Auto) 0.3, Baso % (Auto) 0.3, Neut # (Auto) 19.3 H, Lymph # (Auto) 1.1, [place] # (Auto) 1.5 H, Eos # (Auto) 0.1, Baso # (Auto) 0.1, Total Counted 100, Neutrophils % (Manual) 88 H, Lymphocytes % (Manual) 6 L, Monocytes % (Manual) 6, Platelet Estimate Normal, RBC Morphology Normal 07/18/20 06:45: Sodium 141, Potassium 4.4, Chloride 101, Carbon Dioxide 38 H, Anion Gap 6.4, BUN 74 H, Creatinine 1.20 D, Estimated Creat Clear 73, Estimated GFR 60, Est GFR ( Amer) 73 D, Glucose 164 H, Calcium 7.3 L, Total Bilirubin 0.6, AST 130 H D, ALT 91 H, Alkaline Phosphatase 69, Total Protein 4.8 L, Albumin 2.2 L, Globulin 2.6, Albumin/Globulin Ratio 0.8 L 07/18/20 07:03: Specimen Source Right radial, O2 % 80, ABG pH 7.41, ABG pCO2 54.7 H, ABG pO2 72.7 L, ABG HCO3 33.6 H, ABG Total CO2 35.3 H, ABG Base Excess 8.9 H, Michele Test Patient unable, Vent Rate 24, Tidal Volume 480, PEEP 5 Vital Signs - 24 hr 07/17/20 10:50 07/17/20 12:00 07/17/20 12:59 Temperature 100.2 F H 100.0 F H Pulse Rate 118 H 119 H Pulse Rate [Apical] 120 H 117 H Respiratory Rate 26 H 25 H Blood Pressure [Right Arm] 105/57 L 117/66 02 Sat by Pulse Oximetry 95 95 07/17/20 13:00 07/17/20 13:40 07/17/20 14:00 Temperature 100.4 F H 100.1 F H Pulse Rate Pulse Rate [Apical] 117 H 117 H Respiratory Rate 25 H 25 H 26 H Blood Pressure [Right Arm] 93/54 L 101/63 L 02 Sat by Pulse Oximetry 93 L 94 L 95 07/17/20 15:00 07/17/20 16:00 07/17/20 16:57 Temperature 98.6 F 98.6 F 99.4 F Pulse Rate 114 H Pulse Rate [Apical] 117 H 113 H 108 H Respiratory Rate 26 H 27 H 26 H Blood Pressure [Right Arm] 105/67 L 111/69 118/67 02 Sat by Pulse Oximetry 95 95 91 L 07/17/20 17:31 07/17/20 18:47 07/17/20 19:28 Temperature 99.4 F 99.7 F H Pulse Rate 108 H Pulse Rate [Apical] 111 H 110 H Respiratory Rate 25 H 25 H 26 H Blood Pressure [Right Arm] 110/61 95/67 L 02 Sat by Pulse Oximetry 92 L 90 L 95 07/17/20 20:00 07/17/20 21:00 07/17/20 21:57 Temperature 98.0 F 99.8 F H Pulse Rate 110 H Pulse Rate [Apical] 107 H 115 H Respiratory Rate 25 H 27 H 27 H Blood Pressure [Right Arm] 101/84 L 102/65 L 02 Sat by Pulse Oximetry 95 93 L 94 L 07/17/20 22:00 07/17/20 23:00 07/18/20 00:00 Temperature 99.8 F H 100.9 F H 100.2 F H Pulse Rate 100 H Pulse Rate [Apical] 111 H 87 87 Respiratory Rate 27 H 27 H 25 H Blood Pressure [Right Arm] 94/64 L 112/64 115/59 L 02 Sat by Pulse Oximetry 93 L 92 L 96 07/18/20 01:00 07/18/20 01:55 07/18/20 02:20 Temperature 99.5 F 99.4 F Pulse Rate Pulse Rate [Apical] 91 H 92 H Respiratory Rate 29 H 27 H 26 H Blood Pressure [Right Arm] 107/64 L 110/57 L 02 Sat by Pulse Oximetry 93 L 94 L 93 L 07/18/20 02:26 07/18/20 03:00 07/18/20 04:00 Temperature 99.2 F 98.6 F Pulse Rate 100 H Pulse Rate [Apical] 97 H 100 H 98 H Respiratory Rate 28 H 26 H Blood Pressure [Right Arm] 115/62 110/57 L 02 Sat by Pulse Oximetry 88 L 89 L 95 07/18/20 05:00 07/18/20 06:00 07/18/20 06:20 Temperature Pulse Rate 111 H Pulse Rate [Apical] 99 H 103 H Respiratory Rate 27 H 33 H Blood Pressure [Right Arm] 110/57 L 119/66 02 Sat by Pulse Oximetry 95 92 L 90 L 07/18/20 06:55 Temperature Pulse Rate Pulse Rate [Apical] 102 H Respiratory Rate Blood Pressure [Right Arm] 111/64 0
[2020-07-18 12:35] LABS: POC Glucose,Bedside 146 (70-110)
[2020-07-18 12:35] LABS: POC Glucose,Bedside 119 (70-110)
[2020-07-18 12:46] LABS: POC Glucose,Bedside 259 (70-110)
[2020-07-18 12:46] LABS: POC Glucose,Bedside 285 (70-110)
[2020-07-18 12:46] LABS: POC Glucose,Bedside 117 (70-110)
[2020-07-18 12:46] LABS: POC Glucose,Bedside 139 (70-110)
--- NOTE | 2020-07-18 13:31 | HMH.PULMPN ---
Internal Medicine - PN: Subj *Date: 07/18/20 *Time: 13:31 Interval history: Patient respiratory status remained stable. Shock improved with decreasing pressor requirements. Mentation remains guarded. Exam - Constitutional Constitutional:: Present: no acute distress - Respiratory Exam Comments: Bilateral clear except basilar coarse breath sounds - Cardiovascular Exam Cardiac:: Present: S1, S2 - GI Exam GI:: Present: soft - Extremities Exam Extremities: Present: no cyanosis, no clubbing, no edema Assessment and Plan (1) Pneumonia due to COVID-19 virus Status: Acute Category: Medical Code(s): U07.1 - COVID-19; J12.82 - Pneumonia due to coronavirus disease 2019 (2) Respiratory failure with hypoxia Status: Acute Qualifiers: Chronicity: acute Qualified Code(s): J96.01 - Acute respiratory failure with hypoxia Category: Medical Code(s): J96.91 - Respiratory failure, unspecified with hypoxia (3) CAD (coronary artery disease), [place] coronary artery Status: Chronic Qualifiers: [place] vs. transplanted heart: [place] heart Associated angina: without angina Qualified Code(s): I25.10 - Atherosclerotic heart disease of [place] coronary artery without angina pectoris Category: Medical Code(s): I25.10 - Atherosclerotic heart disease of [place] coronary artery without angina pectoris (4) DM2 (diabetes mellitus, type 2) Status: Chronic Qualifiers: Diabetes mellitus retirement insulin use: without terminal clerk use Diabetes mellitus complication status: without complication Qualified Code(s): E11.9 - Type 2 diabetes mellitus without complications Category: Medical Code(s): E11.9 - Type 2 diabetes mellitus without complications (5) Tachycardia Status: Acute Category: Medical Code(s): R00.0 - Tachycardia, unspecified - Assessment and plan all Dx Assessment and Plan for all problems:: #COVID-19 pneumonia: #Acute hypoxic respiratory failure requiring mechanical ventilation: 69-year-old no prior respiratory complaints never smoker with recent diagnosis of COVID-19 present with worsening respiratory failure cough and productive phlegm. CT showed bilateral diffuse pulmonary infiltrates. No evidence of acute pulmonary embolism. Patient respiratory status gradually worsened throughout his hospital course with increasing oxygen requirements to BiPAP,. Patient was initially DNR/DNI change his CODE STATUS to full code given his worsening respiratory status and severe respiratory distress patient was eventually intubated on December 03, 2020. Patient respiratory status has been gradually improving since admission. Patient received 1 unit of convalescent plasma per repeat D-dimer during hospital course elevated at 8, however repeat lower extremity Doppler negative so opted to continue with prophylactic anticoagulation. Patient completed a course of vancomycin and Zosyn and also 10-day course of remdesivir. Patient to the hospital was also developed pneumomediastinum subcu emphysema but no obvious pneumothorax. Continue to monitor. Patient respiratory status remained stable on minimal vent settings however his mentation is not improving. Patient also developed new onset shock needing pressor requirements. Blood cultures pending. Patient adequately volume resuscitated. Echo within normal limits. Shock improved currently on 14 mcg of Levophed Plan: -Patient GI aspirate noted to have an admixture of blood and his hemoglobin significantly dropped from 13-9. We will closely monitor and will consider consulting GI for endoscopy if hemoglobin continues to drop we will follow with repeat H & H - Continue current vent settings, continue hold off sedation untill patient wakes up. We will monitor his respiratory status closely - Change dexamethasone to hydrocortisone 50 mg every 6 hours - Continue vancomycin and Zosyn until blood culture results. - DuoNebs every 6 hours scheduled - Continue PPI and DVT
[2020-07-18 14:47] LABS: D-Dimer 1.69 ug/mL (0.0-0.5)
[2020-07-18 15:33] LABS: Basophils % 0.2 % (0.1-2.0); Eosinophils % 0.1 % (0.1-12.0); Hematocrit 27.2 % (42.0-52.0); Hemoglobin 8.4 g/dL (14.1-18.0); Lymphocytes # 0.5 K/mm3 (0.7-4.5); Lymphocytes % 2.6 % (10-50); Mean Corpuscular HGB Conc 30.7 g/dL (31.8-35.4); Mean Corpuscular Hemoglobin 29.5 pg (27.0-31.2); Mean Corpuscular Volume 96.2 fl (80-94); Monocytes # 0.9 K/mm3 (0.1-1.0); Monocytes % 4.9 % (1.7-9.3); Neutrophils # 16.3 K/mm3 (1.8-7.8); Neutrophils % 92.2 % (37.0-80.0); Platelet Count 243 K/mm3 (142-424); Red Blood Count 2.83 M/mm3 (4.60-6.20); Red Cell Distribution Width 12.9 % (11.5-17.5); White Blood Count 17.6 K/mm3 (4.8-10.8)
[2020-07-18 15:36] LABS: MANUAL DIFFERENTIAL MANUAL DIFFERENTIAL (MANUAL DIFF)
[2020-07-18 16:02] LABS: Lymphocytes % 1 % (10-50); Monocytes % 5 % (2-9); Neutrophils % 94 % (42-76); Platelet Estimate Normal; RBC Morphology Normal; Total Cells Counted 100
[2020-07-18 16:19] LABS: POC Glucose,Bedside 202 (70-110)
--- NOTE | 2020-07-18 17:39 | P.PCN_ITS ---
[facility] Procedure Note Procedure Note:: Femoral arterial line placement: PROCEDURE SUMMARY: Indications for the procedure: Shock A time out was performed. My hands were washed immediately prior to the procedure. I wore a surgical cap, mask with protective eyewear, sterile gown and sterile gloves throughout the procedure. The right inguinal region was prepped using chlorhexidine scrub and draped in sterile fashion using a three quarter sheet drape and sterile towels. The femoral pulse was identified. Anesthesia was achieved using 1% lidocaine. Ultrasund was used to identify the landmarks and femoral artery. The syringe was removed and a guidewire was advanced through the needle into the femoral artery. The needle was exchanged over the wire for an femoral 4 [place] arterial sheath catheter. The wire was removed and the catheter was secured to the skin using a suture. The patient tolerated the procedure without any hemodynamic compromise. At time of procedure completion, the catheter was connected to the quality assurance monitor chassis and calibrated. Appropriate waveform and blood pressure tracing was observed. Estimated blood loss is 15 Due to unavailability of the femoral arterial line, emergency zoila the situation given patient on high-dose pressors the femoral sheath was placed. Please keep the right lower extremity immobile until the femoral sheath is removed to avoid any unwanted complications include but not limited to femoral artery aneurysm rupture.
[2020-07-18 23:01] LABS: POC Glucose,Bedside 114 (70-110)
[2020-07-19] VITALS (31 sets, daily range): BP systolic 94–124; BP diastolic 40–71; PULSE 73–116; RESP 20–37; TEMP 36.4–38.1; O2SAT 88–98; BMI 24.5
[2020-07-19 00:29] LABS: POC Glucose,Bedside 154 (70-110)
[2020-07-19 03:48] LABS: POC Glucose,Bedside 248 (70-110)
--- NOTE | 2020-07-19 06:00 | XR_ITS ---
PROCEDURE: XR CHEST PORTABLE CLINICAL HISTORY: resp failure Follow-up Covid19 pneumonia COMPARISON: CT CT CHEST WO CON from 07/16/2020 CR XR CHEST PORTABLE from 07/17/2020 CR XR CHEST PORTABLE from 07/17/2020 CR XR CHEST PORTABLE from 07/18/2020 FINDINGS: Endotracheal tube, nasogastric tube, and left subclavian central venous line unchanged and in good position. No change bilateral pneumonia. Subcutaneous emphysema once again noted but continues to improve. Improvement in pneumomediastinum. No evidence of pneumothorax. IMPRESSION: Tubes and line in good position with no change in pneumonia with improving pneumo mediastinum and subcutaneous emphysema Dictated by: Michele Sheth MD 07/19/2020 06:22 Michele Sheth MD in [place] 07/19/2020 06:22
[2020-07-19 06:17] LABS: Basophils % 0.2 % (0.1-2.0); Hematocrit 28.1 % (42.0-52.0); Lymphocytes # 0.6 K/mm3 (0.7-4.5); Lymphocytes % 3.4 % (10-50); Mean Corpuscular HGB Conc 32.1 g/dL (31.8-35.4); Mean Corpuscular Hemoglobin 30.7 pg (27.0-31.2); Mean Corpuscular Volume 95.8 fl (80-94); Mean Platelet Volume 9.3 fl (7.4-10.4); Monocytes % 5.6 % (1.7-9.3); Neutrophils # 16.2 K/mm3 (1.8-7.8); Neutrophils % 90.8 % (37.0-80.0); Platelet Count 268 K/mm3 (142-424); Red Blood Count 2.94 M/mm3 (4.60-6.20); Red Cell Distribution Width 13.6 % (11.5-17.5); White Blood Count 17.8 K/mm3 (4.8-10.8)
[2020-07-19 06:49] LABS: Alanine Aminotransferase 113 U/L (12-78); Albumin Level 2.2 g/dl (3.5-5.0); Albumin/Globulin Ratio 0.8 (1.1-1.8); Alkaline Phosphatase 93 U/L (38-126); Anion Gap 7.4 mEq/L (5-15); Aspartate Amino Transferase 128 U/L (17-59); Bilirubin,Total 0.6 mg/dl (0.2-1.3); Blood Urea Nitrogen 58 mg/dl (9-20); Calcium 7.2 mg/dl (8.4-10.2); Carbon Dioxide 36 mmol/L (22.0-30.0); Chloride 104 mmol/L (98-107); Creatinine Clearance Estimated 87 mL/min (50-200); Estimated Glomerular Filt Rate 74 ml/min (>60); GFR (African American) 90 ML/MIN (>60); Globulin 2.6 g/dL (1.3-3.2); Glucose 260 mg/dl (74-100); Potassium 4.4 mmoL/L (3.5-5.1); Sodium 143 mmol/L (136-145); Total Protein,Serum 4.8 g/dl (6.3-8.2)
[2020-07-19 06:58] LABS: MANUAL DIFFERENTIAL MANUAL DIFFERENTIAL (MANUAL DIFF)
[2020-07-19 08:00] LABS: ABG HCO3 30.7 mmhg (22.0-26.0); ABG Oxygen Saturation 95 % (90-100); ABG PH 7.41 mmol/L (7.35-7.45); ABG PO2 74.6 mmhg (80-100); ABG TCO2 32.2 mmhg (23-27)
[2020-07-19 08:01] LABS: Oxygen 80 %
[2020-07-19 08:02] LABS: Allen's Test Patient Unable; Pressure Support 5; Source Right Radial
--- NOTE | 2020-07-19 08:35 | HMH.ACPN2 ---
Internal Medicine - PN: Subj *Date: 07/19/20 *Time: 09:19 Interval history: Nurse reported more purposeful movements over the past 24 hours. Sedation has been turned off for several days. Levophed has been weaned down to 10 from 14, FiO2 is up to 80%. Arterial line placed in right groin yesterday. Exam Vital signs and Labs for Last 24 Hours: Temp Pulse Resp BP Pulse Ox 99.1 F 108 H 30 H 120/40 L 95 07/19/20 08:00 07/19/20 08:00 07/19/20 08:00 07/19/20 08:00 07/19/20 08:00 Laboratory Results - last 24 hr 07/17/20 15:50: POC Glucose 119 H 07/17/20 20:39: POC Glucose 285 H 07/17/20 20:46: POC Glucose 139 H 07/18/20 00:04: POC Glucose 117 H 07/18/20 04:21: POC Glucose 146 H 07/18/20 06:45: Total Counted 100, Neutrophils % (Manual) 88 H, Lymphocytes % (Manual) 6 L, Monocytes % (Manual) 6, Platelet Estimate Normal, RBC Morphology Normal 07/18/20 12:08: POC Glucose 259 H 07/18/20 14:00: D-Dimer 1.69 H 07/18/20 15:25: WBC 17.6 H, RBC 2.83 L, Hgb 8.4 L, Hct 27.2 L, MCV 96.2 H, MCH 29.5, MCHC 30.7 L, RDW 12.9, Plt Count 243, MPV 9.0, Neut % (Auto) 92.2 H, Lymph % (Auto) 2.6 L, [place] % (Auto) 4.9, Eos % (Auto) 0.1, Baso % (Auto) 0.2, Neut # (Auto) 16.3 H, Lymph # (Auto) 0.5 L, [place] # (Auto) 0.9, Eos # (Auto) 0.0, Baso # (Auto) 0.0, Total Counted 100, Neutrophils % (Manual) 94 H, Lymphocytes % (Manual) 1 L, Monocytes % (Manual) 5, Platelet Estimate Normal, RBC Morphology Normal 07/18/20 16:11: POC Glucose 202 H 07/18/20 20:20: POC Glucose 114 H 07/19/20 00:21: POC Glucose 154 H 07/19/20 03:39: POC Glucose 248 H 07/19/20 04:50: WBC 17.8 H, RBC 2.94 L, Hgb 9.0 L, Hct 28.1 L, MCV 95.8 H, MCH 30.7, MCHC 32.1, RDW 13.6, Plt Count 268, MPV 9.3, Neut % (Auto) 90.8 H, Lymph % (Auto) 3.4 L, [place] % (Auto) 5.6, Eos % (Auto) 0.0 L, Baso % (Auto) 0.2, Neut # (Auto) 16.2 H, Lymph # (Auto) 0.6 L, [place] # (Auto) 1.0, Eos # (Auto) 0.0, Baso # (Auto) 0.0 07/19/20 04:50: Sodium 143, Potassium 4.4, Chloride 104, Carbon Dioxide 36 H, Anion Gap 7.4, BUN 58 H, Creatinine 1.00, Estimated Creat Clear 87, Estimated GFR 74, Est GFR ( Amer) 90 D, Glucose 260 H D, Calcium 7.2 L, Total Bilirubin 0.6, AST 128 H, ALT 113 H, Alkaline Phosphatase 93, Total Protein 4.8 L, Albumin 2.2 L, Globulin 2.6, Albumin/Globulin Ratio 0.8 L 07/19/20 06:00: ABG pH 7.41, ABG pCO2 50.0 H, ABG pO2 74.6 L, ABG HCO3 30.7 H, ABG Total CO2 32.2 H, ABG O2 Saturation 95, ABG Base Excess 6.0 H Vital Signs - 24 hr 07/18/20 10:55 07/18/20 12:00 07/18/20 13:00 Temperature Pulse Rate 84 Pulse Rate [Apical] Pulse Rate [Right Radial] 91 H Respiratory Rate 25 H 25 H Blood Pressure [Right Arm] 108/59 L 02 Sat by Pulse Oximetry 94 L 94 L 07/18/20 14:00 07/18/20 15:00 07/18/20 16:00 Temperature Pulse Rate 90 Pulse Rate [Apical] Pulse Rate [Right Radial] 91 H 93 H 89 Respiratory Rate 26 H 24 21 Blood Pressure [Right Arm] 113/62 113/61 98/47 L 02 Sat by Pulse Oximetry 95 96 96 07/18/20 17:56 07/18/20 18:00 07/18/20 19:00 Temperature Pulse Rate Pulse Rate [Apical] Pulse Rate [Right Radial] 103 H 93 H Respiratory Rate 25 H 25 H 25 H Blood Pressure [Right Arm] 111/64 118/65 02 Sat by Pulse Oximetry 95 96 96 07/18/20 19:12 07/18/20 20:00 07/18/20 21:00 Temperature 99.9 F H Pulse Rate 96 H 100 H Pulse Rate [Apical] 102 H 101 H Pulse Rate [Right Radial] Respiratory Rate 32 H 32 H Blood Pressure [Right Arm] 115/50 L 121/57 L 02 Sat by Pulse Oximetry 91 L 96 07/18/20 21:27 07/18/20 22:00 07/18/20 22:57 Temperature 100.6 F H Pulse Rate Pulse Rate [Apical] 98 H 94 H Pulse Rate [Right Radial] Respiratory Rate 28 H 32 H 30 H Blood Pressure [Right Arm] 124/68 116/51 L 02 Sat by Pulse Oximetry 96 92 L 96 07/19/20 00:00 07/19/20 00:55 07/19/20 01:57 Temperature 99.9 F H 99.1 F Pulse Rate 97 H Pulse Rate [Apical] 98 H 102 H 102 H Pulse Rate [Right Radial] Respiratory Rate 32 H 32 H 32 H Blood Pressure [Right
--- NOTE | 2020-07-19 09:16 | HMH.PULMPN ---
Internal Medicine - PN: Subj *Date: 07/19/20 *Time: 11:11 Interval history: No acute respiratory event overnight. Exam - Constitutional Constitutional:: Present: no acute distress, comfortable - Respiratory Exam Comments: Bilateral coarse breath sounds slightly worsened from yesterday - Cardiovascular Exam Cardiac:: Present: S1, S2 - GI Exam GI:: Present: soft - Skin Exam Skin: Present: warm, no rash - Extremities Exam Extremities: Present: no cyanosis, no clubbing, edema Assessment and Plan (1) Pneumonia due to COVID-19 virus Status: Acute Category: Medical Code(s): U07.1 - COVID-19; J12.82 - Pneumonia due to coronavirus disease 2019 (2) Respiratory failure with hypoxia Status: Acute Qualifiers: Chronicity: acute Qualified Code(s): J96.01 - Acute respiratory failure with hypoxia Category: Medical Code(s): J96.91 - Respiratory failure, unspecified with hypoxia (3) CAD (coronary artery disease), [place] coronary artery Status: Chronic Qualifiers: [place] vs. transplanted heart: [place] heart Associated angina: without angina Qualified Code(s): I25.10 - Atherosclerotic heart disease of [place] coronary artery without angina pectoris Category: Medical Code(s): I25.10 - Atherosclerotic heart disease of [place] coronary artery without angina pectoris (4) DM2 (diabetes mellitus, type 2) Status: Chronic Qualifiers: Diabetes mellitus correction insulin use: without correction use Diabetes mellitus complication status: without complication Qualified Code(s): E11.9 - Type 2 diabetes mellitus without complications Category: Medical Code(s): E11.9 - Type 2 diabetes mellitus without complications (5) Tachycardia Status: Acute Category: Medical Code(s): R00.0 - Tachycardia, unspecified (6) Anemia Status: Acute Category: Medical Code(s): D64.9 - Anemia, unspecified (7) Bacteremia Status: Acute Category: Medical Code(s): R78.81 - Bacteremia (8) GI bleed Status: Acute Category: Medical Code(s): K92.2 - Gastrointestinal hemorrhage, unspecified - Assessment and plan all Dx Assessment and Plan for all problems:: #COVID-19 pneumonia: #Acute hypoxic respiratory failure requiring mechanical ventilation: 69-year-old no prior respiratory complaints never smoker with recent diagnosis of COVID-19 present with worsening respiratory failure cough and productive phlegm. CT showed bilateral diffuse pulmonary infiltrates. No evidence of acute pulmonary embolism. Patient respiratory status gradually worsened throughout his hospital course with increasing oxygen requirements to BiPAP,. Patient was initially DNR/DNI change his CODE STATUS to full code given his worsening respiratory status and severe respiratory distress patient was eventually intubated on December 03, 2020. Patient respiratory status has been gradually improving since admission. Patient received 1 unit of convalescent plasma per repeat D-dimer during hospital course elevated at 8, however repeat lower extremity Doppler negative so opted to continue with prophylactic anticoagulation. Patient completed a course of vancomycin and Zosyn and also 10-day course of remdesivir. Patient to the hospital was also developed pneumomediastinum subcu emphysema but no obvious pneumothorax. Continue to monitor. Assessment and plan: Patient intubated, not in any sedation mentation slightly improved from yesterday still guarding. We will continue to hold off sedation. Patient respiratory status remained stable ABG showed slightly improved oxygenation. Patient currently on 5 of PEEP and 70% FiO2, patient also appears volume overloaded as he got like 4 to 5 L of volume boluses in the last couple of days given his septic shock. Will increase the PEEP to 8 and try to wean his FiO2 as tolerated. We will hold off on diuresis until his shock completely resolves. Hemodynamically unstable needing pressor recommends to
--- NOTE | 2020-07-19 09:29 | HMH.ACPN ---
Internal Medicine - PN: Subj *Date: 07/19/20 *Time: 09:29 Exam Vital signs and Labs for Last 24 Hours: Temp Pulse Resp BP Pulse Ox 98.8 F 111 H 32 H 109/50 L 98 07/19/20 08:55 07/19/20 08:55 07/19/20 08:55 07/19/20 08:55 07/19/20 08:55 Laboratory Results - last 24 hr 07/17/20 15:50: POC Glucose 119 H 07/17/20 20:39: POC Glucose 285 H 07/17/20 20:46: POC Glucose 139 H 07/18/20 00:04: POC Glucose 117 H 07/18/20 04:21: POC Glucose 146 H 07/18/20 12:08: POC Glucose 259 H 07/18/20 14:00: D-Dimer 1.69 H 07/18/20 15:25: WBC 17.6 H, RBC 2.83 L, Hgb 8.4 L, Hct 27.2 L, MCV 96.2 H, MCH 29.5, MCHC 30.7 L, RDW 12.9, Plt Count 243, MPV 9.0, Neut % (Auto) 92.2 H, Lymph % (Auto) 2.6 L, [place] % (Auto) 4.9, Eos % (Auto) 0.1, Baso % (Auto) 0.2, Neut # (Auto) 16.3 H, Lymph # (Auto) 0.5 L, [place] # (Auto) 0.9, Eos # (Auto) 0.0, Baso # (Auto) 0.0, Total Counted 100, Neutrophils % (Manual) 94 H, Lymphocytes % (Manual) 1 L, Monocytes % (Manual) 5, Platelet Estimate Normal, RBC Morphology Normal 07/18/20 16:11: POC Glucose 202 H 07/18/20 20:20: POC Glucose 114 H 07/19/20 00:21: POC Glucose 154 H 07/19/20 03:39: POC Glucose 248 H 07/19/20 04:50: WBC 17.8 H, RBC 2.94 L, Hgb 9.0 L, Hct 28.1 L, MCV 95.8 H, MCH 30.7, MCHC 32.1, RDW 13.6, Plt Count 268, MPV 9.3, Neut % (Auto) 90.8 H, Lymph % (Auto) 3.4 L, [place] % (Auto) 5.6, Eos % (Auto) 0.0 L, Baso % (Auto) 0.2, Neut # (Auto) 16.2 H, Lymph # (Auto) 0.6 L, [place] # (Auto) 1.0, Eos # (Auto) 0.0, Baso # (Auto) 0.0 07/19/20 04:50: Sodium 143, Potassium 4.4, Chloride 104, Carbon Dioxide 36 H, Anion Gap 7.4, BUN 58 H, Creatinine 1.00, Estimated Creat Clear 87, Estimated GFR 74, Est GFR ( Amer) 90 D, Glucose 260 H D, Calcium 7.2 L, Total Bilirubin 0.6, AST 128 H, ALT 113 H, Alkaline Phosphatase 93, Total Protein 4.8 L, Albumin 2.2 L, Globulin 2.6, Albumin/Globulin Ratio 0.8 L 07/19/20 06:00: ABG pH 7.41, ABG pCO2 50.0 H, ABG pO2 74.6 L, ABG HCO3 30.7 H, ABG Total CO2 32.2 H, ABG O2 Saturation 95, ABG Base Excess 6.0 H I & O for Last 24 hours: Intake & Output 07/16/20 07/17/20 07/18/20 07/19/20 23:59 23:59 23:59 23:59 Intake Total 1357 / 1379 4557.638 / 4683.638 2579 / 2643 931.756 / 931.756 Output Total 1182 / 1282 2395 / 2475 2830 / 2830 725 / 725 Balance 175 / 97 2162.638 / 2208.638 -251 / -187 206.756 / 206.756 Weight 83.1 kg 83.206 kg 88.133 kg 86.818 kg Microbiology Reports for the Last 24 Hours: Microbiology 07/16/20 21:35 Blood - Other Blood Culture - Preliminary Gram Positive Cocci 07/16/20 21:35 Blood - Other Blood Culture - Preliminary Gram Positive Cocci Assessment and Plan (1) Pneumonia due to COVID-19 virus Status: Acute Category: Medical Code(s): U07.1 - COVID-19; J12.82 - Pneumonia due to coronavirus disease 2019 (2) Respiratory failure with hypoxia Status: Acute Qualifiers: Chronicity: acute Qualified Code(s): J96.01 - Acute respiratory failure with hypoxia Category: Medical Code(s): J96.91 - Respiratory failure, unspecified with hypoxia (3) CAD (coronary artery disease), [place] coronary artery Status: Chronic Qualifiers: [place] vs. transplanted heart: [place] heart Associated angina: without angina Qualified Code(s): I25.10 - Atherosclerotic heart disease of [place] coronary artery without angina pectoris Category: Medical Code(s): I25.10 - Atherosclerotic heart disease of [place] coronary artery without angina pectoris (4) DM2 (diabetes mellitus, type 2) Status: Chronic Qualifiers: Diabetes mellitus long-term insulin use: without long-term use Diabetes mellitus complication status: without complication Qualified Code(s): E11.9 - Type 2 diabetes mellitus without complications Category: Medical Code(s): E11.9 - Type 2 diabetes mellitus without complications (5) Tachycardia Status: Acute Category: Medical Code(s): R00.0 - Tachycardia, unspecified
[2020-07-19 09:32] LABS: Eosinophils % 1 % (0-3); Lymphocytes % 2 % (10-50); Monocytes % 4 % (2-9); Neutrophils % 93 % (42-76); Platelet Estimate Normal; RBC Morphology Normal; Total Cells Counted 100
[2020-07-19 19:11] LABS: Vancomycin,Trough 19.8 ug/mL (5.0-10.0)
[2020-07-19 21:12] LABS: POC Glucose,Bedside 256 (70-110)
[2020-07-20] VITALS (40 sets, daily range): BP systolic 101–135; BP diastolic 45–96; PULSE 75–110; RESP 22–35; TEMP 36.6–38.2; O2SAT 89–100; BMI 244047.3
--- NOTE | 2020-07-20 01:08 | PC.NURSE ---
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
--- NOTE | 2020-07-20 05:00 | XR_ITS ---
PROCEDURE: XR CHEST PORTABLE CLINICAL HISTORY: Pt intubated. Follow-up Covid19 pneumonia COMPARISON: CT CT CHEST WO CON from 07/16/2020 CR XR CHEST PORTABLE from 07/17/2020 CR XR CHEST PORTABLE from 07/18/2020 CR XR CHEST PORTABLE from 07/19/2020 FINDINGS: 5:45 a.m. Endotracheal tube nasogastric tube and left subclavian central venous line all remain in good position. Bilateral lower lobe pneumonia once again noted not significantly changed. The subcutaneous emphysema and pneumomediastinum has improved. IMPRESSION: Tubes and lines in good position with no change in bilateral pneumonia. Subcu emphysema and pneumomediastinum has improved Dictated by: Michele Sheth MD 07/20/2020 06:33 Michele Sheth MD in [place] 07/20/2020 06:33
[2020-07-20 05:21] LABS: POC Glucose,Bedside 268 (70-110)
[2020-07-20 05:21] LABS: POC Glucose,Bedside 292 (70-110)
[2020-07-20 05:22] LABS: POC Glucose,Bedside 190 (70-110)
[2020-07-20 05:22] LABS: POC Glucose,Bedside 182 (70-110)
[2020-07-20 05:52] LABS: Basophils # 0.1 K/mm3 (0-0.2); Basophils % 0.3 % (0.1-2.0); Eosinophils % 0.1 % (0.1-12.0); Hematocrit 24.2 % (42.0-52.0); Lymphocytes # 0.6 K/mm3 (0.7-4.5); Lymphocytes % 3.1 % (10-50); Mean Corpuscular HGB Conc 32.6 g/dL (31.8-35.4); Mean Platelet Volume 8.7 fl (7.4-10.4); Monocytes # 1.2 K/mm3 (0.1-1.0); Monocytes % 6.2 % (1.7-9.3); Neutrophils % 90.3 % (37.0-80.0); Platelet Count 266 K/mm3 (142-424); Red Blood Count 2.55 M/mm3 (4.60-6.20); Red Cell Distribution Width 13.8 % (11.5-17.5); White Blood Count 18.8 K/mm3 (4.8-10.8)
[2020-07-20 05:58] LABS: Hemoglobin 7.9 g/dL (14.1-18.0)
[2020-07-20 05:59] LABS: Anion Gap 3.5 mEq/L (5-15); Blood Urea Nitrogen 53 mg/dl (9-20); Calcium 7.2 mg/dl (8.4-10.2); Carbon Dioxide 39 mmol/L (22.0-30.0); Chloride 107 mmol/L (98-107); Creatinine Clearance Estimated 86 mL/min (50-200); Estimated Glomerular Filt Rate 74 ml/min (>60); GFR (African American) 90 ML/MIN (>60); Glucose 187 mg/dl (74-100); MANUAL DIFFERENTIAL MANUAL DIFFERENTIAL (MANUAL DIFF); Potassium 4.5 mmoL/L (3.5-5.1); Sodium 145 mmol/L (136-145)
[2020-07-20 08:14] LABS: Lymphocytes % 1 % (10-50); Monocytes % 2 % (2-9); Neutrophils % 96 % (42-76); Platelet Estimate Normal; RBC Morphology Normal; Total Cells Counted 100
--- NOTE | 2020-07-20 08:27 | HMH.PHACONS ---
- Pharmacy Consult Date: 07/20/20 Time: 08:27 Referring provider: DR. HAMMOND Reason for Consult:: VANCOMYCIN LEVEL AND DOSING CHANGE Allergies and ADEs:: Allergies Allergy/AdvReac Type Severity Reaction Status Date / Time ceftriaxone [From Rocephin] Allergy Mild Verified 05/24/20 09:28 Home Medications:: Home Medications Medication Instructions Recorded Confirmed Type metformin 1,000 mg tablet 1,000 mg PO BID 04/08/18 06/28/20 History pantoprazole 40 mg tablet,delayed 40 mg PO DAILY 04/08/18 06/28/20 History release tamsulosin 0.4 mg capsule 0.4 mg PO DAILY 04/08/18 06/28/20 History dapagliflozin 10 mg tablet 10 mg PO DAILY 30 Days #30 tab 01/14/19 06/28/20 History Clopidogrel Bisulfate [Plavix] 75 mg PO DAILY 06/27/20 06/28/20 History Losartan Potassium [Cozaar 50mg 50 mg PO DAILY 06/27/20 06/28/20 History Tablets] Metoprolol Succinate [Metoprolol 25 mg PO DAILY 06/27/20 06/27/20 History Succinate 25mg Tablet*] Aspirin [Aspirin 81mg chewable 81 mg PO DAILY 06/28/20 06/28/20 History tab] Azithromycin 250 mg PO DAILY 06/28/20 06/28/20 History Ketorolac Tromethamine 1 drp EYE-RIGHT BID 06/28/20 06/28/20 History Prednisolone Acetate/Pf 1 drop OP BID 06/28/20 06/28/20 History [Prednisolone Acet 1% Eye Drop] Atorvastatin Calcium [Lipitor 40mg 40 mg PO DAILY 06/29/20 06/29/20 History Tab] Multivitamin 1 each PO DAILY 06/29/20 06/29/20 History Height: 1.88 cm Weight: 86.228 kg Laboratory Results:: Laboratory Results - last 24 hr 07/19/20 04:50: Total Counted 100, Neutrophils % (Manual) 93 H, Lymphocytes % (Manual) 2 L, Monocytes % (Manual) 4, Eosinophils % (Manual) 1, Platelet Estimate Normal, RBC Morphology Normal 07/19/20 12:02: POC Glucose 268 H 07/19/20 18:29: POC Glucose 292 H 07/19/20 18:45: Vancomycin Trough 19.8 H 07/19/20 20:52: POC Glucose 256 H 07/19/20 23:58: POC Glucose 182 H 07/20/20 04:27: POC Glucose 190 H 07/20/20 05:07: WBC 18.8 H, RBC 2.55 L, Hgb 7.9 L*, Hct 24.2 L, MCV 95.0 H, MCH 31.0, MCHC 32.6, RDW 13.8, Plt Count 266, MPV 8.7, Neut % (Auto) 90.3 H, Lymph % (Auto) 3.1 L, [place] % (Auto) 6.2, Eos % (Auto) 0.1, Baso % (Auto) 0.3, Neut # (Auto) 17.0 H, Lymph # (Auto) 0.6 L, [place] # (Auto) 1.2 H, Eos # (Auto) 0.0, Baso # (Auto) 0.1, Total Counted 100, Neutrophils % (Manual) 96 H, Lymphocytes % (Manual) 1 L, Monocytes % (Manual) 2, Metamyelocytes % 1.0, Platelet Estimate Normal, RBC Morphology Normal 07/20/20 05:07: Sodium 145, Potassium 4.5, Chloride 107, Carbon Dioxide 39 H, Anion Gap 3.5 L, BUN 53 H, Creatinine 1.00, Estimated Creat Clear 86, Estimated GFR 74, Est GFR ( Amer) 90, Glucose 187 H, Calcium 7.2 L Medical History: Reports:: Coronary Artery Disease (Stent placement March 2018.), Diabetes Mellitus Type 2, Gastroesophageal Reflux Disease(GERD), Hyperlipidemia, Hypertension Denies:: Cancer, Diabetes Mellitus Type 1, MRSA, Pulmonary Embolism Assessment and Plan (1) Pneumonia due to COVID-19 virus Status: Acute Category: Medical Code(s): U07.1 - COVID-19; J12.82 - Pneumonia due to coronavirus disease 2018 (2) Respiratory failure with hypoxia Status: Acute Qualifiers: Chronicity: acute Qualified Code(s): J96.01 - Acute respiratory failure with hypoxia Category: Medical Code(s): J96.91 - Respiratory failure, unspecified with hypoxia (3) CAD (coronary artery disease), ambler coronary artery Status: Chronic Qualifiers: [place] vs. 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
--- NOTE | 2020-07-20 08:51 | HMH.PULMPN ---
Internal Medicine - PN: Subj *Date: 07/20/20 *Time: 10:38 Interval history: No acute respiratory events overnight Exam - Constitutional Constitutional:: Present: no acute distress, comfortable - Respiratory Exam Comments: Bilateral predominantly lower lobe coarse breath sounds. Unchanged from yesterday. - Extremities Exam Extremities: Present: no cyanosis, no clubbing, edema Assessment and Plan (1) Pneumonia due to COVID-19 virus Status: Acute Category: Medical Code(s): U07.1 - COVID-19; J12.82 - Pneumonia due to coronavirus disease 2019 (2) Respiratory failure with hypoxia Status: Acute Qualifiers: Chronicity: acute Qualified Code(s): J96.01 - Acute respiratory failure with hypoxia Category: Medical Code(s): J96.91 - Respiratory failure, unspecified with hypoxia (3) CAD (coronary artery disease), crow coronary artery Status: Chronic Qualifiers: [place] vs. transplanted heart: crow heart Associated angina: without angina Qualified Code(s): I25.10 - Atherosclerotic heart disease of crow coronary artery without angina pectoris Category: Medical Code(s): I25.10 - Atherosclerotic heart disease of crow coronary artery without angina pectoris (4) DM2 (diabetes mellitus, type 2) Status: Chronic Qualifiers: Diabetes mellitus snf insulin use: without snf use Diabetes mellitus complication status: without complication Qualified Code(s): E11.9 - Type 2 diabetes mellitus without complications Category: Medical Code(s): E11.9 - Type 2 diabetes mellitus without complications (5) Tachycardia Status: Acute Category: Medical Code(s): R00.0 - Tachycardia, unspecified (6) Anemia Status: Acute Category: Medical Code(s): D64.9 - Anemia, unspecified (7) Bacteremia Status: Deleted Category: Medical Code(s): R78.81 - Bacteremia (8) GI bleed Status: Acute Category: Medical Code(s): K92.2 - Gastrointestinal hemorrhage, unspecified - Assessment and plan all Dx Assessment and Plan for all problems:: #COVID-19 pneumonia: #Acute hypoxic respiratory failure requiring mechanical ventilation: 69-year-old no prior respiratory complaints never smoker with recent diagnosis of COVID-19 present with worsening respiratory failure cough and productive phlegm. CT showed bilateral diffuse pulmonary infiltrates. No evidence of acute pulmonary embolism. Patient respiratory status gradually worsened throughout his hospital course with increasing oxygen requirements to BiPAP,. Patient was initially DNR/DNI change his CODE STATUS to full code given his worsening respiratory status and severe respiratory distress patient was eventually intubated on Jul 05, 2020. Patient respiratory status has been gradually improving since admission. Patient received 1 unit of convalescent plasma per repeat D-dimer during hospital course elevated at 8, however repeat lower extremity Doppler negative so opted to continue with prophylactic anticoagulation. Patient completed a course of vancomycin and Zosyn and also 10-day course of remdesivir. Patient to the hospital was also developed pneumomediastinum subcu emphysema but no obvious pneumothorax. Continue to monitor. Assessment and plan: Patient intubated, not in any sedation mentation slightly improved from yesterday , moving his left upper extremity and squeezing by following commands. We will continue to hold off sedation. Patient respiratory status remained stable ABG showed slightly improved oxygenation. Rest x-ray relatively unchanged from yesterday patient currently on 8 of PEEP and 60% FiO2. We will continue to wean PEEP status post diuresis. Hemodynamically unstable needing pressor recommends to maintain his MAP greater than 65. Shock likely from sepsis as patient blood cultures positive for MRSA. Patient was initiated on vancomycin on 07/16. We will repeat blood cultures today, continue vancomycin and Zosyn an
--- NOTE | 2020-07-20 09:02 | HMH.ACPN2 ---
Internal Medicine - PN: Subj *Date: 07/20/20 *Time: 09:02 Interval history: No new events noted overnight. Exam Vital signs and Labs for Last 24 Hours: Temp Pulse Resp BP Pulse Ox 99.3 F 101 H 31 H 112/59 L 92 L 07/20/20 06:44 07/20/20 06:44 07/20/20 06:44 07/20/20 06:44 07/20/20 06:44 Laboratory Results - last 24 hr 07/19/20 04:50: Total Counted 100, Neutrophils % (Manual) 93 H, Lymphocytes % (Manual) 2 L, Monocytes % (Manual) 4, Eosinophils % (Manual) 1, Platelet Estimate Normal, RBC Morphology Normal 07/19/20 12:02: POC Glucose 268 H 07/19/20 18:29: POC Glucose 292 H 07/19/20 18:45: Vancomycin Trough 19.8 H 07/19/20 20:52: POC Glucose 256 H 07/19/20 23:58: POC Glucose 182 H 07/20/20 04:27: POC Glucose 190 H 07/20/20 05:07: WBC 18.8 H, RBC 2.55 L, Hgb 7.9 L*, Hct 24.2 L, MCV 95.0 H, MCH 31.0, MCHC 32.6, RDW 13.8, Plt Count 266, MPV 8.7, Neut % (Auto) 90.3 H, Lymph % (Auto) 3.1 L, [place] % (Auto) 6.2, Eos % (Auto) 0.1, Baso % (Auto) 0.3, Neut # (Auto) 17.0 H, Lymph # (Auto) 0.6 L, [place] # (Auto) 1.2 H, Eos # (Auto) 0.0, Baso # (Auto) 0.1, Total Counted 100, Neutrophils % (Manual) 96 H, Lymphocytes % (Manual) 1 L, Monocytes % (Manual) 2, Metamyelocytes % 1.0, Platelet Estimate Normal, RBC Morphology Normal 07/20/20 05:07: Sodium 145, Potassium 4.5, Chloride 107, Carbon Dioxide 39 H, Anion Gap 3.5 L, BUN 53 H, Creatinine 1.00, Estimated Creat Clear 86, Estimated GFR 74, Est GFR ( Amer) 90, Glucose 187 H, Calcium 7.2 L 07/20/20 06:50: Blood Type B Positive, Antibody Screen Negative, Crossmatch (AHG) See Detail Vital Signs - 24 hr 07/19/20 09:54 07/19/20 10:30 07/19/20 11:00 Temperature 98.6 F 99.1 F Pulse Rate Pulse Rate [Apical] 105 H 87 Pulse Rate [Right Radial] Respiratory Rate 20 30 H 30 H Blood Pressure [Right Arm] 105/49 L 104/48 L 02 Sat by Pulse Oximetry 92 L 94 L 95 07/19/20 12:00 07/19/20 12:46 07/19/20 13:52 Temperature 99.1 F 98.7 F 98.7 F Pulse Rate 94 H Pulse Rate [Apical] 92 H 91 H 95 H Pulse Rate [Right Radial] Respiratory Rate 30 H 37 H 31 H Blood Pressure [Right Arm] 106/51 L 106/47 L 103/60 L 02 Sat by Pulse Oximetry 95 92 L 95 07/19/20 14:15 07/19/20 14:50 07/19/20 16:00 Temperature 99.0 F Pulse Rate 90 Pulse Rate [Apical] 95 H Pulse Rate [Right Radial] Respiratory Rate 26 H 27 H Blood Pressure [Right Arm] 103/60 L 96/40 L 02 Sat by Pulse Oximetry 95 07/19/20 16:50 07/19/20 17:50 07/19/20 18:00 Temperature 98.7 F 100.5 F H Pulse Rate Pulse Rate [Apical] 98 H 101 H Pulse Rate [Right Radial] Respiratory Rate 30 H 30 H 24 Blood Pressure [Right Arm] 94/48 L 118/47 L 02 Sat by Pulse Oximetry 95 88 L 07/19/20 18:45 07/19/20 19:06 07/19/20 20:00 Temperature 97.6 F 98.6 F Pulse Rate 98 H 100 H Pulse Rate [Apical] 98 H 90 Pulse Rate [Right Radial] Respiratory Rate 26 H 30 H 31 H Blood Pressure [Right Arm] 110/42 L 119/47 L 02 Sat by Pulse Oximetry 92 L 92 L 91 L 07/19/20 21:00 07/19/20 22:00 07/19/20 23:00 Temperature 98.9 F 99.4 F 99.2 F Pulse Rate Pulse Rate [Apical] 92 H 93 H 73 Pulse Rate [Right Radial] Respiratory Rate 32 H 30 H 29 H Blood Pressure [Right Arm] 113/46 L 124/56 L 122/50 L 02 Sat by Pulse Oximetry 91 L 91 L 91 L 07/19/20 23:15 07/20/20 00:00 07/20/20 00:56 Temperature 99.1 F 99.2 F Pulse Rate 80 Pulse Rate [Apical] 89 84 Pulse Rate [Right Radial] Respiratory Rate 29 H 30 H 34 H Blood Pressure [Right Arm] 120/54 L 114/50 L 02 Sat by Pulse Oximetry 94 L 100 90 L 07/20/20 02:00 07/20/20 02:50 07/20/20 03:00 Temperature 98.1 F Pulse Rate Pulse Rate [Apical] 92 H 92 H Pulse Rate [Right Radial] Respiratory Rate 30 H 34 H Blood Pressure [Right Arm] 117/54 L 128/57 L 02 Sat by Pulse Oximetry 93 L 91 L 92 L 07/20/20 04:00 07/20/20 05:00 07/20/20 05:25 Temperature 98.1 F 98.2 F Pulse Rate 90 100 H Pulse Rate [Apical] 104 H 96 H Pulse Rate [Right Radial]
--- NOTE | 2020-07-20 09:12 | PC.NURSE ---
telephone consent for blood obtained from by Gera Granados RN and Erickson Salazar RN at this time.
--- NOTE | 2020-07-20 09:13 | PC.NURSE ---
late entry: notified Dr. Chance face to face of positive aerobic blood culture bottles x2 positive for MRSA. When checking residual tube feed, iftikhar blood was noted mixed in with tube feed. md to assess holding lovenox at this time. Lasix was also requested for after blood transfusion as MD feels pt is swollen.
--- NOTE | 2020-07-20 09:16 | PC.NURSE ---
attempted to notify house that blood was ready at this time.
--- NOTE | 2020-07-20 09:47 | PC.NURSE ---
house notified at this time that blood is ready for transfusion.
[2020-07-20 16:56] LABS: POC Glucose,Bedside 294 (70-110)
[2020-07-20 18:54] LABS: Hematocrit 26.5 % (42.0-52.0)
[2020-07-20 18:56] LABS: Hemoglobin 8.3 g/dL (14.1-18.0)
[2020-07-20 20:44] LABS: POC Glucose,Bedside 160 (70-110)
[2020-07-20 21:21] LABS: POC Glucose,Bedside 241 (70-110)
[2020-07-21] VITALS (46 sets, daily range): BP systolic 83–150; BP diastolic 41–82; PULSE 77–117; RESP 16–42; TEMP 37–39.5; O2SAT 88–100; BMI 24.5
[2020-07-21 00:16] LABS: POC Glucose,Bedside 148 (70-110)
--- NOTE | 2020-07-21 05:00 | XR_ITS ---
PROCEDURE: XR CHEST PORTABLE Referring Doctor: Bryon Chance Patient Age:69Y CLINICAL HISTORY: intubated Covd 19 pneumonia COMPARISON: CT CT CHEST WO CON from 07/16/2020 CR XR CHEST PORTABLE from 07/18/2020 CR XR CHEST PORTABLE from 07/19/2020 CR XR CHEST PORTABLE from 07/20/2020 FINDINGS: . AP portable upright CXR performed today ET tube satisfactory position with tip 5 cm above pj. Left subclavian central line remains in place satisfactory position with tip at SVC NG tube satisfactory position into stomach. Tip is seen at of midline towards the mid to distal aspect of stomach A slight but definite definite improvement of infiltrate and airspace disease lung bases bilaterally when compared to previous studies. The diaphragm shadow slightly sharper at mainly at the left lung base but also right lung base as there is slight clearing and better expansion here. Very subtle low-density infiltrate persist at left midlung left perihilar region but the upper lung loja appear clear. The pulmonary vascularity appears normal to upper normal IMPRESSION: ET tube, NG tube, and central line remain satisfactory position Overall slight improvement Slight clearing bibasilar infiltrates, compared to 07/20/2020 CXR Dictated by: Bienvenido Moreno MD 07/21/2020 08:59 Bienvenido Moreno MD in [facility] 07/21/2020 08:59
[2020-07-21 06:04] LABS: Basophils # 0.1 K/mm3 (0-0.2); Basophils % 0.4 % (0.1-2.0); Eosinophils % 0.1 % (0.1-12.0); Hemoglobin 8.7 g/dL (14.1-18.0); Lymphocytes # 0.3 K/mm3 (0.7-4.5); Lymphocytes % 1.6 % (10-50); Mean Corpuscular HGB Conc 32.2 g/dL (31.8-35.4); Mean Corpuscular Hemoglobin 30.1 pg (27.0-31.2); Mean Corpuscular Volume 93.7 fl (80-94); Mean Platelet Volume 8.3 fl (7.4-10.4); Monocytes # 1.3 K/mm3 (0.1-1.0); Monocytes % 6.5 % (1.7-9.3); Neutrophils # 17.8 K/mm3 (1.8-7.8); Neutrophils % 91.3 % (37.0-80.0); Platelet Count 211 K/mm3 (142-424); Red Cell Distribution Width 16.7 % (11.5-17.5); White Blood Count 19.4 K/mm3 (4.8-10.8)
[2020-07-21 06:13] LABS: Hematocrit 27.1 % (42.0-52.0)
[2020-07-21 06:14] LABS: MANUAL DIFFERENTIAL MANUAL DIFFERENTIAL (MANUAL DIFF)
[2020-07-21 06:16] LABS: Blood Urea Nitrogen 56 mg/dl (9-20); Calcium 7.4 mg/dl (8.4-10.2); Chloride 105 mmol/L (98-107); Creatinine Clearance Estimated 79 mL/min (50-200); Estimated Glomerular Filt Rate 67 ml/min (>60); GFR (African American) 81 ML/MIN (>60); Glucose 222 mg/dl (74-100); Potassium 4.2 mmoL/L (3.5-5.1); Sodium 147 mmol/L (136-145)
[2020-07-21 06:23] LABS: Anion Gap 8.2 mEq/L (5-15); Carbon Dioxide 38 mmol/L (22.0-30.0)
[2020-07-21 07:36] LABS: Lymphocytes % 2 % (10-50); Monocytes % 6 % (2-9); Neutrophils % 92 % (42-76); Nucleated Red Blood Cells 3; Total Cells Counted 100
[2020-07-21 07:37] LABS: RBC Morphology Normal
[2020-07-21 07:38] LABS: Platelet Estimate Normal
--- NOTE | 2020-07-21 08:20 | HMH.ACPN2 ---
Internal Medicine - PN: Rey *Date: 07/21/20 *Time: 08:46 Interval history: Patient got 1 unit of PRBC yesterday, Levophed has been weaned down to 5. No other events noted overnight. Exam Vital signs and Labs for Last 24 Hours: Temp Pulse Resp BP Pulse Ox 99.9 F H 77 34 H 127/82 98 07/21/20 08:00 07/21/20 08:00 07/21/20 08:00 07/21/20 08:00 07/21/20 08:00 Laboratory Results - last 24 hr 07/20/20 06:50: Blood Type B Positive, Antibody Screen Negative, Crossmatch (AHG) See Detail 07/20/20 12:30: POC Glucose 160 H 07/20/20 15:14: Hgb 8.3 L, Hct 26.5 L 07/20/20 16:49: POC Glucose 294 H 07/20/20 21:14: POC Glucose 241 H 07/21/20 00:08: POC Glucose 148 H 07/21/20 05:20: WBC 19.4 H, RBC 2.90 L, Hgb 8.7 L, Hct 27.1 L, MCV 93.7, MCH 30.1, MCHC 32.2, RDW 16.7, Plt Count 211, MPV 8.3, Neut % (Auto) 91.3 H, Lymph % (Auto) 1.6 L, [place] % (Auto) 6.5, Eos % (Auto) 0.1, Baso % (Auto) 0.4, Neut # (Auto) 17.8 H, Lymph # (Auto) 0.3 L, [place] # (Auto) 1.3 H, Eos # (Auto) 0.0, Baso # (Auto) 0.1, Total Counted 100, Neutrophils % (Manual) 92 H, Lymphocytes % (Manual) 2 L, Monocytes % (Manual) 6, Nucleated RBCs 3, Platelet Estimate Normal, RBC Morphology Normal 07/21/20 05:20: Sodium 147 H, Potassium 4.2, Chloride 105, Carbon Dioxide 38 H, Anion Gap 8.2, BUN 56 H, Creatinine 1.10, Estimated Creat Clear 79, Estimated GFR 67, Est GFR ( Amer) 81, Glucose 222 H, Calcium 7.4 L Vital Signs - 24 hr 07/20/20 09:00 07/20/20 10:27 07/20/20 10:30 Temperature 100.7 F H 99.7 F H Pulse Rate 107 H 84 Pulse Rate [Apical] 83 Pulse Rate [Right Radial] Respiratory Rate 24 24 22 Blood Pressure 115/67 110/58 L Blood Pressure [Right Arm] Blood Pressure [Right Femoral Artery] 112/52 L 02 Sat by Pulse Oximetry 94 L 91 L 92 L 07/20/20 10:35 07/20/20 10:40 07/20/20 10:45 Temperature 98.8 F 98.8 F 98.9 F Pulse Rate 98 H 95 H 86 Pulse Rate [Apical] Pulse Rate [Right Radial] Respiratory Rate 23 26 H 25 H Blood Pressure 108/49 L 105/49 L 102/48 L Blood Pressure [Right Arm] Blood Pressure [Right Femoral Artery] 02 Sat by Pulse Oximetry 95 97 98 07/20/20 11:00 07/20/20 11:09 07/20/20 11:15 Temperature 98.7 F 98.9 F Pulse Rate 88 92 H Pulse Rate [Apical] Pulse Rate [Right Radial] Respiratory Rate 22 30 H 25 H Blood Pressure 106/50 L 115/58 L Blood Pressure [Right Arm] Blood Pressure [Right Femoral Artery] 02 Sat by Pulse Oximetry 98 92 L 97 07/20/20 11:30 07/20/20 12:00 07/20/20 12:30 Temperature 98.9 F 97.9 F Pulse Rate 88 80 82 Pulse Rate [Apical] 85 Pulse Rate [Right Radial] Respiratory Rate 24 22 Blood Pressure 110/60 120/53 L Blood Pressure [Right Arm] Blood Pressure [Right Femoral Artery] 02 Sat by Pulse Oximetry 95 94 L 90 L 07/20/20 12:55 07/20/20 13:45 07/20/20 13:55 Temperature 98.7 F 98.9 F Pulse Rate 91 H 84 Pulse Rate [Apical] 84 Pulse Rate [Right Radial] Respiratory Rate 24 23 22 Blood Pressure 118/58 L 116/50 L Blood Pressure [Right Arm] Blood Pressure [Right Femoral Artery] 116/50 L 02 Sat by Pulse Oximetry 92 L 92 L 92 L 07/20/20 14:00 07/20/20 15:00 07/20/20 16:00 Temperature 98.9 F Pulse Rate 96 H Pulse Rate [Apical] 82 92 H 93 H Pulse Rate [Right Radial] Respiratory Rate 25 H 24 25 H Blood Pressure Blood Pressure [Right Arm] Blood Pressure [Right Femoral Artery] 125/53 L 104/45 L 107/45 L 02 Sat by Pulse Oximetry 90 L 95 97 07/20/20 17:00 07/20/20 17:37 07/20/20 18:00 Temperature Pulse Rate Pulse Rate [Apical] 101 H 108 H Pulse Rate [Right Radial] Respiratory Rate 25 H 30 H 25 H Blood Pressure Blood Pressure [Right Arm] Blood Pressure [Right Femoral Artery] 125/54 L 121/50 L 02 Sat by Pulse Oximetry 94 L 94 L 91 L 07/20/20 19:00 07/20/20 19:33 07/20/20 20:00 Temperature 99.2 F Pulse Rate 110 H Pulse Rate [Apical] 109 H 108 H Pulse Rate [Right Radial] Respiratory Rate 25 H 35 H
--- NOTE | 2020-07-21 09:02 | PC.NURSE ---
During AM assessment, RN noticed that right femoral arterial line has a sheath in place and the pressure bag has a 500mL bag of Heparin. Notified Dr. Chance, who came to [facility], that Heparin is hanging in the pressure bag for the arterial line. He asked that I do an incident report. I will complete report and notify Fina Bui. I switched out Heparin and spike NS 1L bag.
[2020-07-21 09:17] LABS: ABG Base Excess 10.5 mmol/L (-2.4-2.3); ABG Oxygen Saturation 94 % (90-100); ABG PH 7.42 mmol/L (7.35-7.45); ABG PO2 74.7 mmhg (80-100); ABG TCO2 36.7 mmhg (23-27)
--- NOTE | 2020-07-21 09:20 | PC.NURSE ---
SBP 110. Levo gtt decreased to 2mcg/min from 5mcg/min.
[2020-07-21 09:28] LABS: Allen's Test Acceptable; Oxygen 70 %; PEEP 8; Source Right Radial; Tidal Volume 480; Vent Rate 24
[2020-07-21 09:29] LABS: ABG PCO2 55.2 mmhg (35.0-45.0)
[2020-07-21 11:28] LABS: POC Glucose,Bedside 316 (70-110)
--- NOTE | 2020-07-21 12:46 | PC.NURSE ---
Heparin in pressure bag that was infusing thru arterial line was initially requested by Dr. Myles upon insertion. Dr. Chance was notified this morning and requested that it be switched to NS. Dr. Chance also updated that Dr. Myles requested Heparin during insertion.
--- NOTE | 2020-07-21 13:12 | PC.NURSE ---
BP 119/47. Levo gtt turned OFF.
--- NOTE | 2020-07-21 16:45 | PC.NURSE ---
spoke to Dr. Chance, who ordered NS @ 50mL/hr. Order faxed to [facility]
--- NOTE | 2020-07-21 17:05 | PC.NURSE ---
Dr. Salinas called and reports that a cathlab RN will be called in to remove the femoral sheath in right groin.
--- NOTE | 2020-07-21 17:55 | PC.NURSE ---
Madisyn from cathlab @ [facility] and pulled right femoral sheath.
--- NOTE | 2020-07-21 18:40 | PC.NURSE ---
arterial line was reading 20 points higher systolically than NIBP.
--- NOTE | 2020-07-21 23:10 | XR_ITS ---
PROCEDURE: XR CHEST PORTABLE Referring Doctor: Valentin Gamez Patient Age:69Y CLINICAL HISTORY: ETT placement . covd pneumonia cough fever short of breath COMPARISON: CT CT CHEST WO CON from 07/16/2020 CR XR CHEST PORTABLE from 07/19/2020 CR XR CHEST PORTABLE from 07/20/2020 CR XR CHEST PORTABLE from 07/21/2020 FINDINGS: ET tube satisfactory position nearly 6 cm above pj. NG tube satisfactory passing well into the stomach. Left subclavian central line is stable satisfactory with tip at SVC. Bilateral infiltrates again noted. Most evident and diffuse on right with slight progression on the right since early four a.m. study today. At the right lung the infiltrate is most pronounced at the right lung base and right infrahilar region, extent with minimal infiltrate right perihilar region. Only scant accentuation markings at the mid lung and upper lung field. Left lung with left basilar infiltrate most evident medially but does extend laterally were it partially obscures left hemidiaphragm.. The left upper lung field is clear heart upper normal in size borderline cardiomegaly. Superior mediastinum hilar regions unchanged. There is subtle blunting at the both CP angle which suggestive of small pleural effusions IMPRESSION: Bilateral infiltrate involving right lung more so than left. Lower lobe predominance bilaterally Infiltrate in right lung base and right infrahilar region perhaps very slightly more evident today but but no prominent change Soft tissue gas at right neck and supraclavicular region a likely reflect prior pneumomediastinum, but but have become more evident compared to prior CXR studies 07/19/2020 and 07/20/2020. Dictated by: Bienvenido Moreno MD 07/22/2020 07:14 Bienvenido Moreno MD in [facility] 07/22/2020 07:14
--- NOTE | 2020-07-21 23:16 | PC.NURSE ---
2237-Pt's ventilator was alarming. Respiratory called to room. Pt's tidal volume 50-100 despite vent set for 480. Cuff was deflated. Respiratory inserted more air and cuff continued to leak. Noise coming from pt's mouth and tube feeding suctioned. Dr. Myles paged at 2237 and spoke with respiratory. Dr. Myles ordered for ER to be notified to change ETT. ER notified at [address] My[address]'s request. [address]. Villalobos here with Des Aleman direct marketing manager at 2305. Bougie inserted at 2307, ETT removed at 2308 and new ETT replaced at 2308. 7.8 ETT placed at 24 at the lip.
--- NOTE | 2020-07-21 23:23 | PC.NURSE ---
Stat chest x-ray ordered to verify ETT and OG placement.
[2020-07-22] VITALS (49 sets, daily range): BP systolic 88–119; BP diastolic 46–66; PULSE 90–120; RESP 21–38; TEMP 37.2–38.7; O2SAT 89–98; BMI 247641.9
--- NOTE | 2020-07-22 04:26 | HMH.RR ---
Acute Rapid Response Note - Subjective Date Responded: 07/21/20 Time Responded: 23:00 Provider Note: called to re-intubate pt as balloon seal compromised - Objective Findings: Vital Signs - Last 4 Hours Temperature 100.7 F H 07/22/20 03:00 Temperature Source Axillary 07/22/20 03:00 Pulse Rate 100 H 07/22/20 04:00 Respiratory Rate 29 H 07/22/20 03:00 TAR Vitals Timing 1 Hour Post Infusion 07/20/20 13:55 Blood Pressure 106/60 L 07/22/20 03:00 Blood Pressure Mean 75 07/22/20 03:00 Blood Pressure Source Automatic Cuff 07/22/20 03:00 Blood Pressure Position Supine 07/22/20 03:00 02 Sat by Pulse Oximetry 97 07/22/20 03:00 Oxygen Delivery Method 07/22/20 03:00 Oxygen Flow Rate (LPM) 55 07/12/20 20:41 - Radiology Findings #1 Xray Reviewed: Chest (tube ok - small amt of rt sq air - no pxt) Rapid Response Exam - General General appearance: other (on vent and sedated ) - Head Head exam: atraumatic - Eye Eye exam: Present: PERRL, EOMI - ENT ENT exam: Present: mucous membranes dry - Neck Neck exam: Present: other (intubated- no def sq air ) - Respiratory Respiratory exam: Present: other (mech vented ) - Cardiovascular Cardiovascular exam: Present: regular rate - Abdominal Exam Abdominal exam: Present: soft - Extremities Exam Extremities exam: Present: pedal edema - Neurological Exam Neurological exam: Present: other (sedated) - Skin Skin exam: Absent: rash RR Procedures/Assess/Plan - Bedside Intubation Time Out Performed: Yes Sedative: none Assist Device Used: Bougie Tube size: 7.5 Tube uncuffed: No Secured Depth: 24 Secured location: lips Placement confirmation: equal breath sounds bilaterally, confirmation by capnometry Patient tolerated procedure intubation: no complications Intubation Complications: none (1) Respiratory failure with hypoxia Status: Acute Qualifiers: Chronicity: acute Qualified Code(s): J96.01 - Acute respiratory failure with hypoxia (2) Pneumonia due to COVID-19 virus Status: Acute - Assessment and plan all Dx Assessment and Plan for all problems:: no issues with replacement and clinically stable
--- NOTE | 2020-07-22 04:30 | PC.NURSE ---
Right femoral arterial line removed today tegaderm dressing c/d/i with no drainage noted; has remained stable with no acute distress noted at this time. Levophed still on hold no acute s/s noted. Patient did have decrease in O2 sats indicating need for reintubation; O2 sats improved after being reintubated.
--- NOTE | 2020-07-22 05:00 | XR_ITS ---
PROCEDURE: XR CHEST PORTABLE Referring Doctor: Bryon Chance Patient Age:69Y CLINICAL HISTORY: intubation bilateral pneumonia Covd positive COMPARISON: CT CT CHEST WO CON from 07/16/2020 CR XR CHEST PORTABLE from 07/20/2020 CR XR CHEST PORTABLE from 07/21/2020 CR XR CHEST PORTABLE from 07/21/2020 FINDINGS: . ET tube satisfactory position 5 cm above pj. NG tube remains in passes through GE junction well into the stomach. Satisfactory. Left subclavian central line remains in place with tip at SVC. The bilateral infiltrates, primarily bibasilar infiltrates, appear to yesterday evening's CXR July 21 2300 hour CXR. Perhaps slight improvement right lung base Right lung. Infiltrate most evident throughout the right lung base extends with only subtle infiltrate extending to the mid lung and above. Again infiltrate and airspace disease density at the right base seems to be slightly improved since yesterday.. There also seems to be some less vascular engorgement and congestion Left lung.. Minimal infiltrate at the left lung base most evident medial left lung base appears similar if not perhaps slightly denser.. Mild central perihilar infiltrates bilaterally a similar No pleural effusion or pneumothorax . Residual pneumomediastinum with air to the right of the trachea at mediastinum as well as air extending into the right neck and above the right clavicle but this was most evident on a recent CT chest 07/16/2024 IMPRESSION: . ET tube, NG tube, central line a satisfactory position and stable. . Bilateral infiltrates most evident at bases: . No prominent or significant change since study earlier today Only question perhaps subtle improvement right base since very early a.m. study today. . Persistent soft tissue air at the right supraclavicular region and right neck and along with minimal residual pneumomediastinum findings again noted and were described on July 16 CT chest Dictated by: Bienvenido Moreno MD 07/22/2020 07:05 Bienvenido Moreon MD in [place] 07/22/2020 07:05
[2020-07-22 06:36] LABS: Basophils # 0.1 K/mm3 (0-0.2); Basophils % 0.4 % (0.1-2.0); Lymphocytes # 0.4 K/mm3 (0.7-4.5); Lymphocytes % 2.7 % (10-50); Mean Corpuscular HGB Conc 31.9 g/dL (31.8-35.4); Mean Corpuscular Hemoglobin 30.7 pg (27.0-31.2); Mean Corpuscular Volume 96.1 fl (80-94); Mean Platelet Volume 8.6 fl (7.4-10.4); Monocytes # 0.8 K/mm3 (0.1-1.0); Monocytes % 4.9 % (1.7-9.3); Neutrophils # 14.1 K/mm3 (1.8-7.8); Neutrophils % 91.9 % (37.0-80.0); Platelet Count 169 K/mm3 (142-424); Red Blood Count 2.52 M/mm3 (4.60-6.20); Red Cell Distribution Width 16.9 % (11.5-17.5); White Blood Count 15.4 K/mm3 (4.8-10.8)
[2020-07-22 06:41] LABS: Hematocrit 24.2 % (42.0-52.0); Hemoglobin 7.7 g/dL (14.1-18.0); MANUAL DIFFERENTIAL MANUAL DIFFERENTIAL (MANUAL DIFF)
[2020-07-22 06:59] LABS: Chloride 107 mmol/L (98-107)
[2020-07-22 07:00] LABS: Potassium 4.3 mmoL/L (3.5-5.1); Sodium 146 mmol/L (136-145)
[2020-07-22 07:02] LABS: Alanine Aminotransferase 160 U/L (12-78); Alkaline Phosphatase 87 U/L (38-126); Aspartate Amino Transferase 167 U/L (17-59); Bilirubin,Total 0.4 mg/dl (0.2-1.3); Blood Urea Nitrogen 63 mg/dl (9-20); Creatinine Clearance Estimated 73 mL/min (50-200); Estimated Glomerular Filt Rate 60 ml/min (>60); GFR (African American) 73 ML/MIN (>60)
[2020-07-22 07:03] LABS: Albumin Level 2.2 g/dl (3.5-5.0); Calcium 7.2 mg/dl (8.4-10.2); Globulin 2.3 g/dL (1.3-3.2); Glucose 247 mg/dl (74-100); Total Protein,Serum 4.5 g/dl (6.3-8.2)
[2020-07-22 07:14] LABS: Anion Gap 3.3 mEq/L (5-15); Carbon Dioxide 40 mmol/L (22.0-30.0)
[2020-07-22 07:20] LABS: Lymphocytes % 4 % (10-50); Macrocytosis 1+; Neutrophils % 85 % (42-76); Platelet Estimate Normal; Total Cells Counted 100
[2020-07-22 07:21] LABS: Hypochromasia 1+; Rouleaux 2+
--- NOTE | 2020-07-22 07:21 | PC.NURSE ---
Dr. Gamez notified of CO2 40
[2020-07-22 07:35] LABS: ABG HCO3 36.7 mmhg (22.0-26.0); ABG Oxygen Saturation 95 % (90-100); ABG PH 7.41 mmol/L (7.35-7.45); ABG PO2 77.3 mmhg (80-100); ABG TCO2 38.5 mmhg (23-27)
[2020-07-22 07:53] LABS: Oxygen 70 %
[2020-07-22 07:54] LABS: Allen's Test ACCEPTABLE; PEEP 8; Source Left Radial; Tidal Volume 480; Vent Rate 24
[2020-07-22 07:55] LABS: ABG PCO2 59.5 mmhg (35.0-45.0)
--- NOTE | 2020-07-22 09:55 | HMH.ACPN2 ---
Internal Medicine - PN: Subj *Date: 07/22/20 *Time: 10:26 Interval history: Events of yesterday evening noted. Right femoral arterial line was removed and ET tube was replaced due to cuff leak. Levophed is off and pt is maintaining BP. Exam Vital signs and Labs for Last 24 Hours: Temp Pulse Resp BP Pulse Ox 99.6 F 105 H 27 H 98/53 L 94 L 07/22/20 09:00 07/22/20 09:00 07/22/20 09:00 07/22/20 09:00 07/22/20 09:00 Laboratory Results - last 24 hr 07/21/20 11:21: POC Glucose 316 H* 07/22/20 05:50: WBC 15.4 H, RBC 2.52 L, Hgb 7.7 L*, Hct 24.2 L, MCV 96.1 H, MCH 30.7, MCHC 31.9, RDW 16.9, Plt Count 169, MPV 8.6, Neut % (Auto) 91.9 H, Lymph % (Auto) 2.7 L, [place] % (Auto) 4.9, Eos % (Auto) 0.0 L, Baso % (Auto) 0.4, Neut # (Auto) 14.1 H, Lymph # (Auto) 0.4 L, [place] # (Auto) 0.8, Eos # (Auto) 0.0, Baso # (Auto) 0.1, Total Counted 100, Neutrophils % (Manual) 85 H, Band Neutrophils % 11.0 H, Lymphocytes % (Manual) 4 L, Platelet Estimate Normal, Hypochromasia 1+, Macrocytosis 1+, Rouleaux 2+ 07/22/20 05:50: Sodium 146 H, Potassium 4.3, Chloride 107, Carbon Dioxide 40 H, Anion Gap 3.3 L, BUN 63 H, Creatinine 1.20, Estimated Creat Clear 73, Estimated GFR 60, Est GFR ( Amer) 73, Glucose 247 H, Calcium 7.2 L, Total Bilirubin 0.4, AST 167 H, ALT 160 H, Alkaline Phosphatase 87, Total Protein 4.5 L, Albumin 2.2 L, Globulin 2.3, Albumin/Globulin Ratio 1.0 L 07/22/20 07:00: Specimen Source Left radial, O2 % 70, ABG pH 7.41, ABG pCO2 59.5 H, ABG pO2 77.3 L, ABG HCO3 36.7 H, ABG Total CO2 38.5 H, ABG O2 Saturation 95, ABG Base Excess 12.0 H, Michele Test Acceptable, Vent Rate 24, Tidal Volume 480, PEEP 8 Vital Signs - 24 hr 07/21/20 10:00 07/21/20 10:49 07/21/20 11:59 Temperature 99.9 F H 99.8 F H 100.5 F H Pulse Rate Pulse Rate [Apical] 114 H 114 H 87 Pulse Rate [Right Radial] Respiratory Rate 34 H 35 H 26 H Blood Pressure [Right Arm] Blood Pressure [Right Femoral Artery] 120/52 L 96/62 L 96/62 L 02 Sat by Pulse Oximetry 92 L 95 07/21/20 12:00 07/21/20 13:00 07/21/20 13:55 Temperature 99.9 F H 99.8 F H Pulse Rate 88 99 H Pulse Rate [Apical] 97 H 97 H Pulse Rate [Right Radial] Respiratory Rate 33 H 34 H 34 H Blood Pressure [Right Arm] 108/61 L Blood Pressure [Right Femoral Artery] 120/49 L 120/48 L 121/47 L 02 Sat by Pulse Oximetry 95 94 L 07/21/20 14:23 07/21/20 14:37 07/21/20 15:00 Temperature 99.2 F 98.7 F Pulse Rate Pulse Rate [Apical] 96 H Pulse Rate [Right Radial] Respiratory Rate 31 H 34 H Blood Pressure [Right Arm] Blood Pressure [Right Femoral Artery] 116/44 L 02 Sat by Pulse Oximetry 94 L 93 L 07/21/20 15:57 07/21/20 16:00 07/21/20 16:49 Temperature 100.3 F H 100.4 F H Pulse Rate 98 H Pulse Rate [Apical] 90 97 H Pulse Rate [Right Radial] Respiratory Rate 35 H 34 H Blood Pressure [Right Arm] 94/52 L Blood Pressure [Right Femoral Artery] 120/44 L 116/43 L 110/41 L 02 Sat by Pulse Oximetry 91 L 94 L 07/21/20 17:50 07/21/20 18:00 07/21/20 18:15 Temperature 100.7 F H Pulse Rate Pulse Rate [Apical] 101 H 88 Pulse Rate [Right Radial] Respiratory Rate 29 H 33 H 23 Blood Pressure [Right Arm] Blood Pressure [Right Femoral Artery] 122/45 L 113/73 02 Sat by Pulse Oximetry 93 L 93 L 91 L 07/21/20 18:20 07/21/20 18:25 07/21/20 18:30 Temperature Pulse Rate Pulse Rate [Apical] 108 H 105 H 104 H Pulse Rate [Right Radial] Respiratory Rate 34 H 16 30 H Blood Pressure [Right Arm] 95/58 L Blood Pressure [Right Femoral Artery] 97/54 L 100/57 L 95/58 L 02 Sat by Pulse Oximetry 91 L 91 L 96 07/21/20 18:37 07/21/20 18:45 07/21/20 19:02 Temperature 100.7 F H Pulse Rate Pulse Rate [Apical] 108 H 104 H 105 H Pulse Rate [Right Radial] Respiratory Rate 32 H 33 H Blood Pressure [Right Arm] 83/53 L 95/58 L 105/61 L Blood Pressure [Right Femoral Artery] 02 Sat by Pulse Oximetry 94 L 95 94 L 07/21/20 19:13 07/21/20 19:15 07/21
--- NOTE | 2020-07-22 10:38 | DIET.NUTRFU ---
Addendum entered by Chela Mccabe 07/25/20 17:16: No changes, tolerating tube feeds. Weight stable, BG avg. 240, improvement hypernatremia, increase in elevated BUN. H&H slightly improved, some blood aspirate still present. No BM since 07/23. IVF changed to 100ml/h NaCl with D5. Water flushes altered to 30-60ml q 4h. Pt within fluid needs. Continuing to monitor and alter as needed. Addendum entered by Chela Mccabe 07/23/20 16:08: Weight up 4#, BG avg. 190 past 48hr, improvement hypernatremia and elevated BUN. Pt had his first BM since 07/10 on 07/20 which was large and tarry. GI consult today and pt had Endo Clip placed, hopefully this will lead to improvement GI bleed. TF continue with good toleration at goal rate which provides about 75% needs. Continues on IVF and with minimal water flushes of 60-120ml q 4h and 867ml free water in formula, total fluids around 2332-2687ml. Continuing to monitor and alter as indicated. Original Note: Pt receiving IVF at 50ml/hr today, change made in TF order to water flushes of 60-120ml q 4h to account for additional fluids from IVF. continuing to monitor and alter as needed. no other changes at this time. Weight stable, BG tqb=014, continued hypernatremia and elevated BUN noted- pt within fluid needs. Still no BM and continued drop H&H noted- continuing to monitor GI.
[2020-07-22 18:14] LABS: Vancomycin,Trough 18.5 ug/mL (5.0-10.0)
--- NOTE | 2020-07-22 18:42 | PC.NURSE ---
shift note: pt has remained stable this shift. Received 2 units of PRBCs. Has been normotensive but tachycardic. Follows commands by squeezing his right hand. Goncalves with good UOP. RR in the high 20s/low 30s. Has been febrile today. Tylenol 650mg was given. Gastric residuals 0mL all day. Tolerating goal rate of 46ml/hr of tubefeeds. No evidence of active bleeding noted. No BM today.
[2020-07-23] VITALS (30 sets, daily range): BP systolic 83–121; BP diastolic 45–94; PULSE 67–120; RESP 20–36; TEMP 37.2–38.7; O2SAT 90–100; BMI 252006.7
--- NOTE | 2020-07-23 05:00 | XR_ITS ---
PROCEDURE: XR CHEST PORTABLE CLINICAL HISTORY: intubated Follow-up pneumonia COMPARISON: CT CT CHEST WO CON from 07/16/2020 CR XR CHEST PORTABLE from 07/21/2020 CR XR CHEST PORTABLE from 07/21/2020 CR XR CHEST PORTABLE from 07/22/2020 FINDINGS: 5:33 a.m.. Endotracheal tube, orogastric tube, and left subclavian CVL remain in place in good position. The OG tube tip is not visible on the image but is below the GE junction. No change bilateral pneumonia. Persistent but improving subcutaneous emphysema in the right supraclavicular region. No acute bony abnormalities. IMPRESSION: No change Dictated by: Michele Sheth MD 07/23/2020 06:26 Michele Sheth MD in [facility] 07/23/2020 06:26
[2020-07-23 06:21] LABS: Basophils # 0.1 K/mm3 (0-0.2); Basophils % 0.4 % (0.1-2.0); Hematocrit 31.3 % (42.0-52.0); Lymphocytes # 0.4 K/mm3 (0.7-4.5); Lymphocytes % 2.4 % (10-50); Mean Corpuscular HGB Conc 31.4 g/dL (31.8-35.4); Mean Corpuscular Hemoglobin 29.3 pg (27.0-31.2); Mean Corpuscular Volume 93.1 fl (80-94); Mean Platelet Volume 8.7 fl (7.4-10.4); Monocytes # 0.6 K/mm3 (0.1-1.0); Monocytes % 3.8 % (1.7-9.3); Neutrophils # 14.3 K/mm3 (1.8-7.8); Neutrophils % 93.3 % (37.0-80.0); Platelet Count 159 K/mm3 (142-424); Red Blood Count 3.37 M/mm3 (4.60-6.20); Red Cell Distribution Width 17.6 % (11.5-17.5); White Blood Count 15.3 K/mm3 (4.8-10.8)
[2020-07-23 06:51] LABS: Alanine Aminotransferase 175 U/L (12-78); Albumin Level 2.2 g/dl (3.5-5.0); Albumin/Globulin Ratio 0.9 (1.1-1.8); Alkaline Phosphatase 77 U/L (38-126); Aspartate Amino Transferase 180 U/L (17-59); Bilirubin,Total 0.4 mg/dl (0.2-1.3); Calcium 7.3 mg/dl (8.4-10.2); Chloride 106 mmol/L (98-107); Creatinine Clearance Estimated 59 mL/min (50-200); Estimated Glomerular Filt Rate 47 ml/min (>60); GFR (African American) 56 ML/MIN (>60); Globulin 2.4 g/dL (1.3-3.2); Glucose 235 mg/dl (74-100); Potassium 4.2 mmoL/L (3.5-5.1); Sodium 148 mmol/L (136-145); Total Protein,Serum 4.6 g/dl (6.3-8.2)
[2020-07-23 06:57] LABS: Anion Gap 9.2 mEq/L (5-15); Carbon Dioxide 37 mmol/L (22.0-30.0)
[2020-07-23 07:09] LABS: Hemoglobin 9.8 g/dL (14.1-18.0); MANUAL DIFFERENTIAL MANUAL DIFFERENTIAL (MANUAL DIFF)
[2020-07-23 07:30] LABS: ABG Base Excess 7.7 mmol/L (-2.4-2.3); ABG HCO3 33.4 mmhg (22.0-26.0); ABG Oxygen Saturation 99 % (90-100); ABG PH 7.34 mmol/L (7.35-7.45); ABG PO2 142.3 mmhg (80-100); ABG TCO2 35.3 mmhg (23-27)
[2020-07-23 07:31] LABS: Allen's Test Patient Unable; Oxygen 100 %; PEEP 8; Source Left Radial; Tidal Volume 480; Vent Rate 24
[2020-07-23 07:33] LABS: ABG PCO2 62.7 mmhg (35.0-45.0)
[2020-07-23 07:47] LABS: Blood Urea Nitrogen 78 mg/dl (9-20)
--- NOTE | 2020-07-23 08:56 | HMH.PULMPN ---
Internal Medicine - PN: Subj *Date: 07/23/20 *Time: 14:09 Interval history: No acute respiratory events overnight. Exam - Constitutional Constitutional:: Present: no acute distress - HENMT Exam HENMT: Present: normocephalic - Eye Exam Eyes:: Present: eyelids normal - Neck Exam Neck:: Present: thyroid normal - Respiratory Exam Respiratory:: Present: crackles - Cardiovascular Exam Cardiac:: Present: S1, S2 - GI Exam GI:: Present: soft - Neurological Exam Neurological: Present: alert - Extremities Exam Extremities: Present: no cyanosis, no clubbing, edema Assessment and Plan (1) Respiratory failure with hypoxia Status: Acute Qualifiers: Chronicity: acute Qualified Code(s): J96.01 - Acute respiratory failure with hypoxia Category: Medical Code(s): J96.91 - Respiratory failure, unspecified with hypoxia (2) Pneumonia due to COVID-19 virus Status: Acute Category: Medical Code(s): U07.1 - COVID-19; J12.82 - Pneumonia due to coronavirus disease 2019 (3) Anemia Status: Acute Category: Medical Code(s): D64.9 - Anemia, unspecified (4) GI bleed Status: Acute Category: Medical Code(s): K92.2 - Gastrointestinal hemorrhage, unspecified (5) Staphylococcus epidermidis bacteremia Status: Acute Category: Medical Code(s): R78.81 - Bacteremia; B95.7 - Other staphylococcus as the cause of diseases classified elsewhere (6) CAD (coronary artery disease), [place] coronary artery Status: Chronic Qualifiers: [place] vs. 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 treater insulin use: without usp use Diabetes mellitus complication status: without complication Qualified Code(s): E11.9 - Type 2 diabetes mellitus without complications Category: Medical Code(s): E11.9 - Type 2 diabetes mellitus without complications (8) History of left below knee amputation Status: Chronic Category: Medical Code(s): Z89.512 - Acquired absence of left leg below knee (9) History of osteomyelitis Status: Chronic Category: Medical Code(s): Z87.39 - Personal history of other diseases of the musculoskeletal system and connective tissue (10) Sepsis Status: Acute Qualifiers: Sepsis type: sepsis due to unspecified organism Sepsis acute organ dysfunction status: with acute organ dysfunction Severe sepsis acute organ dysfunction type: acute respiratory failure Acute respiratory failure type: with hypoxia Severe sepsis shock status: with septic shock Qualified Code(s): A41.9 - Sepsis, unspecified organism; R65.21 - Severe sepsis with septic shock; J96.01 - Acute respiratory failure with hypoxia Category: Medical Code(s): A41.9 - Sepsis, unspecified organism (11) Elevated LFTs Status: Acute Category: Medical Code(s): R79.89 - Other specified abnormal findings of blood chemistry - Assessment and plan all Dx Assessment and Plan for all problems:: #COVID-19 pneumonia: #Acute hypoxic respiratory failure requiring mechanical ventilation: 69-year-old no prior respiratory complaints never smoker with recent diagnosis of COVID-19 present with worsening respiratory failure cough and productive phlegm. CT showed bilateral diffuse pulmonary infiltrates. No evidence of acute pulmonary embolism. Patient respiratory status gradually worsened throughout his hospital course with increasing oxygen requirements to BiPAP,. Patient was initially DNR/DNI change his CODE STATUS to full code given his worsening respiratory status and severe respiratory distress patient was eventually intubated on Jul 05, 2020. Patient respiratory
--- NOTE | 2020-07-23 09:19 | HMH.ACPN2 ---
Internal Medicine - PN: Subj *Date: 07/23/20 *Time: 09:19 Interval history: Events of overnight noted. Pt continues to have bright red blood in NG aspirate, despite being off of all anticoagulants. Fever noted. Exam Vital signs and Labs for Last 24 Hours: Temp Pulse Resp BP Pulse Ox 99.5 F 112 H 20 88/56 L 94 L 07/23/20 09:00 07/23/20 09:00 07/23/20 09:00 07/23/20 09:00 07/23/20 09:00 Laboratory Results - last 24 hr 07/20/20 06:50: Blood Type B Positive, Antibody Screen Negative, Crossmatch (AHG) See Detail 07/22/20 17:40: Vancomycin Trough 18.5 H 07/23/20 05:30: WBC 15.3 H, RBC 3.37 L D, Hgb 9.8 L D, Hct 31.3 L, MCV 93.1, MCH 29.3, MCHC 31.4 L, RDW 17.6 H, Plt Count 159, MPV 8.7, Neut % (Auto) 93.3 H, Lymph % (Auto) 2.4 L, [place] % (Auto) 3.8, Eos % (Auto) 0.0 L, Baso % (Auto) 0.4, Neut # (Auto) 14.3 H, Lymph # (Auto) 0.4 L, [place] # (Auto) 0.6, Eos # (Auto) 0.0, Baso # (Auto) 0.1 07/23/20 05:30: Sodium 148 H, Potassium 4.2, Chloride 106, Carbon Dioxide 37 H, Anion Gap 9.2, BUN 78 H, Creatinine 1.50 H D, Estimated Creat Clear 59, Estimated GFR 47 L, Est GFR ( Amer) 56 L D, Glucose 235 H, Calcium 7.3 L, Total Bilirubin 0.4, AST 180 H, ALT 175 H, Alkaline Phosphatase 77, Total Protein 4.6 L, Albumin 2.2 L, Globulin 2.4, Albumin/Globulin Ratio 0.9 L 07/23/20 07:00: Specimen Source Left radial, O2 % 100, ABG pH 7.34 L, ABG pCO2 62.7 H, ABG pO2 142.3 H, ABG HCO3 33.4 H, ABG Total CO2 35.3 H, ABG O2 Saturation 99, ABG Base Excess 7.7 H, Michele Test Patient unable, Vent Rate 24, Tidal Volume 480, PEEP 8 Vital Signs - 24 hr 07/22/20 10:00 07/22/20 10:10 07/22/20 12:00 Temperature 99.1 F 99.0 F Pulse Rate 111 H Pulse Rate [Apical] 99 H Respiratory Rate 32 H 29 H Blood Pressure Blood Pressure [Right Arm] 95/64 L Blood Pressure [Right Femoral Artery] 02 Sat by Pulse Oximetry 95 93 L 07/22/20 13:00 07/22/20 13:05 07/22/20 13:10 Temperature 100.0 F H 100.1 F H 100.1 F H Pulse Rate 113 H 113 H 113 H Pulse Rate [Apical] Respiratory Rate 32 H 34 H 31 H Blood Pressure 99/62 L 99/62 L 99/62 L Blood Pressure [Right Arm] Blood Pressure [Right Femoral Artery] 02 Sat by Pulse Oximetry 92 L 91 L 93 L 07/22/20 13:15 07/22/20 13:20 07/22/20 13:35 Temperature 100.2 F H 100.5 F H 100.2 F H Pulse Rate 113 H 112 H 114 H Pulse Rate [Apical] Respiratory Rate 32 H 32 H 26 H Blood Pressure 103/66 L 99/62 L 103/62 L Blood Pressure [Right Arm] Blood Pressure [Right Femoral Artery] 02 Sat by Pulse Oximetry 92 L 93 L 89 L 07/22/20 13:50 07/22/20 13:58 07/22/20 14:05 Temperature 100.3 F H 100.4 F H Pulse Rate 112 H 112 H 113 H Pulse Rate [Apical] Respiratory Rate 32 H 28 H 32 H Blood Pressure 100/60 L 100/60 L Blood Pressure [Right Arm] Blood Pressure [Right Femoral Artery] 02 Sat by Pulse Oximetry 92 L 98 93 L 07/22/20 14:55 07/22/20 15:10 07/22/20 15:20 Temperature 100.4 F H 100.4 F H 100.4 F H Pulse Rate 114 H 114 H 114 H Pulse Rate [Apical] Respiratory Rate 27 H 27 H 27 H Blood Pressure 94/62 L 94/62 L 94/62 L Blood Pressure [Right Arm] Blood Pressure [Right Femoral Artery] 02 Sat by Pulse Oximetry 95 95 95 07/22/20 15:25 07/22/20 15:30 07/22/20 15:35 Temperature 101 F H 99.9 F H 99.9 F H Pulse Rate 115 H 115 H 116 H Pulse Rate [Apical] Respiratory Rate 33 H 35 H 31 H Blood Pressure 94/62 L 109/63 L 102/62 L Blood Pressure [Right Arm] Blood Pressure [Right Femoral Artery] 02 Sat by Pulse Oximetry 93 L 92 L 92 L 07/22/20 15:40 07/22/20 15:55 07/22/20 16:00 Temperature 100.4 F H 100.9 F H Pulse Rate 113 H 116 H 114 H Pulse Rate [Apical] Respiratory Rate 33 H 32 H Blood Pressure 116/65 107/64 L Blood Pressure [Right Arm] Blood Pressure [Right Femoral Artery] 02 Sat by Pulse Oximetry 93 L 92 L 07/22/20 16:10 07/22/20 16:25 07/22/20 17:25 Temperature 100.9 F H 100.9 F H 101.2 F H Pulse Rate 116 H 119 H 112 H Pulse Rat
[2020-07-23 10:01] LABS: Lymphocytes % 2 % (10-50); Monocytes % 1 % (2-9); Neutrophils % 97 % (42-76); Nucleated Red Blood Cells 1; Platelet Estimate Normal; RBC Morphology Normal; Total Cells Counted 100
--- NOTE | 2020-07-23 11:34 | HMH.ACPN ---
Internal Medicine - PN: Subj *Date: 07/23/20 *Time: 11:35 Exam Vital signs and Labs for Last 24 Hours: Temp Pulse Resp BP Pulse Ox 100.0 F H 107 H 28 H 94/63 L 92 L 07/23/20 11:00 07/23/20 11:00 07/23/20 11:00 07/23/20 11:00 07/23/20 11:00 Laboratory Results - last 24 hr 07/20/20 06:50: Blood Type B Positive, Antibody Screen Negative, Crossmatch (AHG) See Detail 07/22/20 17:40: Vancomycin Trough 18.5 H 07/23/20 05:30: WBC 15.3 H, RBC 3.37 L D, Hgb 9.8 L D, Hct 31.3 L, MCV 93.1, MCH 29.3, MCHC 31.4 L, RDW 17.6 H, Plt Count 159, MPV 8.7, Neut % (Auto) 93.3 H, Lymph % (Auto) 2.4 L, [place] % (Auto) 3.8, Eos % (Auto) 0.0 L, Baso % (Auto) 0.4, Neut # (Auto) 14.3 H, Lymph # (Auto) 0.4 L, [place] # (Auto) 0.6, Eos # (Auto) 0.0, Baso # (Auto) 0.1, Total Counted 100, Neutrophils % (Manual) 97 H, Lymphocytes % (Manual) 2 L, Monocytes % (Manual) 1 L, Nucleated RBCs 1, Platelet Estimate Normal, RBC Morphology Normal 07/23/20 05:30: Sodium 148 H, Potassium 4.2, Chloride 106, Carbon Dioxide 37 H, Anion Gap 9.2, BUN 78 H, Creatinine 1.50 H D, Estimated Creat Clear 59, Estimated GFR 47 L, Est GFR ( Amer) 56 L D, Glucose 235 H, Calcium 7.3 L, Total Bilirubin 0.4, AST 180 H, ALT 175 H, Alkaline Phosphatase 77, Total Protein 4.6 L, Albumin 2.2 L, Globulin 2.4, Albumin/Globulin Ratio 0.9 L 07/23/20 07:00: Specimen Source Left radial, O2 % 100, ABG pH 7.34 L, ABG pCO2 62.7 H, ABG pO2 142.3 H, ABG HCO3 33.4 H, ABG Total CO2 35.3 H, ABG O2 Saturation 99, ABG Base Excess 7.7 H, Michele Test Patient unable, Vent Rate 24, Tidal Volume 480, PEEP 8 I & O for Last 24 hours: Intake & Output 07/20/20 07/21/20 07/22/20 07/23/20 23:59 23:59 23:59 23:59 Intake Total 2710.208 / 2710.208 2056 3893 / 3893 1665 / 1665 Output Total 2825 / 2925 1869 / 2029 2209 / 2334 960 / 960 Balance -114.792 / -214.792 1684 / 1559 705 / 705 Weight 86.228 kg 86.664 kg 87.498 kg 89.04 kg Microbiology Reports for the Last 24 Hours: Microbiology 07/16/20 21:35 Blood - Other Blood Culture - Final Staphylococcus epidermidis 07/16/20 21:35 Blood - Other Blood Culture - Preliminary Staphylococcus epidermidis Assessment and Plan (1) Respiratory failure with hypoxia Status: Acute Qualifiers: Chronicity: acute Qualified Code(s): J96.01 - Acute respiratory failure with hypoxia Category: Medical Code(s): J96.91 - Respiratory failure, unspecified with hypoxia (2) Pneumonia due to COVID-19 virus Status: Acute Category: Medical Code(s): U07.1 - COVID-19; J12.82 - Pneumonia due to coronavirus disease 2019 (3) Anemia Status: Acute Category: Medical Code(s): D64.9 - Anemia, unspecified (4) GI bleed Status: Acute Category: Medical Code(s): K92.2 - Gastrointestinal hemorrhage, unspecified (5) Staphylococcus epidermidis bacteremia Status: Acute Category: Medical Code(s): R78.81 - Bacteremia; B95.7 - Other staphylococcus as the cause of diseases classified elsewhere (6) CAD (coronary artery disease), [place] coronary artery Status: Chronic Qualifiers: [place] vs. 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
--- NOTE | 2020-07-23 11:39 | PC.NURSE ---
0800 dr goncalves notified face to face of all lab values out of normal range. no new orders at this time.
--- NOTE | 2020-07-23 12:56 | PC.NURSE ---
spoke on the phone with Dr Taylor at this time in regards to pt having a consult for trach placement.
--- NOTE | 2020-07-23 13:01 | PC.NURSE ---
Renee VILLASENOR and myself spoke with pt Negra Riley about pt having EGD this afternoon. is agreeable to procedure at this time.1300
--- NOTE | 2020-07-23 14:03 | HMH.PHACONS ---
- Pharmacy Consult Date: 07/23/20 Time: 14:03 Referring provider: DR. HAMMOND Reason for Consult:: VANCOMYCIN TROUGH LEVEL Allergies and ADEs:: Allergies Allergy/AdvReac Type Severity Reaction Status Date / Time ceftriaxone [From Rocephin] Allergy Mild Verified 05/24/20 09:28 Home Medications:: Home Medications Medication Instructions Recorded Confirmed Type metformin 1,000 mg tablet 1,000 mg PO BID 04/08/18 06/28/20 History pantoprazole 40 mg tablet,delayed 40 mg PO DAILY 04/08/18 06/28/20 History release tamsulosin 0.4 mg capsule 0.4 mg PO DAILY 04/08/18 06/28/20 History dapagliflozin 10 mg tablet 10 mg PO DAILY 30 Days #30 tab 01/14/19 06/28/20 History Clopidogrel Bisulfate [Plavix] 75 mg PO DAILY 06/27/20 06/28/20 History Losartan Potassium [Cozaar 50mg 50 mg PO DAILY 06/27/20 06/28/20 History Tablets] Metoprolol Succinate [Metoprolol 25 mg PO DAILY 06/27/20 06/27/20 History Succinate 25mg Tablet*] Aspirin [Aspirin 81mg chewable 81 mg PO DAILY 06/28/20 06/28/20 History tab] Azithromycin 250 mg PO DAILY 06/28/20 06/28/20 History Ketorolac Tromethamine 1 drp EYE-RIGHT BID 06/28/20 06/28/20 History Prednisolone Acetate/Pf 1 drop OP BID 06/28/20 06/28/20 History [Prednisolone Acet 1% Eye Drop] Atorvastatin Calcium [Lipitor 40mg 40 mg PO DAILY 06/29/20 06/29/20 History Tab] Multivitamin 1 each PO DAILY 06/29/20 06/29/20 History Height: 1.88 cm Weight: 89.04 kg Laboratory Results:: Laboratory Results - last 24 hr 07/20/20 06:50: Blood Type B Positive, Antibody Screen Negative, Crossmatch (AHG) See Detail 07/22/20 17:40: Vancomycin Trough 18.5 H 07/23/20 05:30: WBC 15.3 H, RBC 3.37 L D, Hgb 9.8 L D, Hct 31.3 L, MCV 93.1, MCH 29.3, MCHC 31.4 L, RDW 17.6 H, Plt Count 159, MPV 8.7, Neut % (Auto) 93.3 H, Lymph % (Auto) 2.4 L, [place] % (Auto) 3.8, Eos % (Auto) 0.0 L, Baso % (Auto) 0.4, Neut # (Auto) 14.3 H, Lymph # (Auto) 0.4 L, [place] # (Auto) 0.6, Eos # (Auto) 0.0, Baso # (Auto) 0.1, Total Counted 100, Neutrophils % (Manual) 97 H, Lymphocytes % (Manual) 2 L, Monocytes % (Manual) 1 L, Nucleated RBCs 1, Platelet Estimate Normal, RBC Morphology Normal 07/23/20 05:30: Sodium 148 H, Potassium 4.2, Chloride 106, Carbon Dioxide 37 H, Anion Gap 9.2, BUN 78 H, Creatinine 1.50 H D, Estimated Creat Clear 59, Estimated GFR 47 L, Est GFR ( Amer) 56 L D, Glucose 235 H, Calcium 7.3 L, Total Bilirubin 0.4, AST 180 H, ALT 175 H, Alkaline Phosphatase 77, Total Protein 4.6 L, Albumin 2.2 L, Globulin 2.4, Albumin/Globulin Ratio 0.9 L 07/23/20 07:00: Specimen Source Left radial, O2 % 100, ABG pH 7.34 L, ABG pCO2 62.7 H, ABG pO2 142.3 H, ABG HCO3 33.4 H, ABG Total CO2 35.3 H, ABG O2 Saturation 99, ABG Base Excess 7.7 H, Michele Test Patient unable, Vent Rate 24, Tidal Volume 480, PEEP 8 Medical History: Reports:: Coronary Artery Disease (Stent placement March 2018.), Diabetes Mellitus Type 2, Gastroesophageal Reflux Disease(GERD), Hyperlipidemia, Hypertension Denies:: Cancer, Diabetes Mellitus Type 1, MRSA, Pulmonary Embolism Assessment and Plan (1) Respiratory failure with hypoxia Status: Acute Qualifiers: Chronicity: acute Qualified Code(s): J96.01 - Acute respiratory failure with hypoxia Category: Medical Code(s): J96.91 - Respiratory failure, unspecified with hypoxia (2) Pneumonia due to COVID-19 virus Status: Acute Category: Medical Code(s): U07.1 - COVID-19; J12.82 - Pneumonia due to coronavirus disease 2019 (3) Anemia Status: Acute Category: Medical Code(s): D64.9 - Anemia, unspecified (4) GI bleed Status: Acute Category: Medical Code(s): K92.2 - Gastrointestinal hemorrhage, unspecified (5) Staphylococcus epidermidis bacteremia Status: Acute Category: Medical Code(s): R78.81 - Bacteremia; B95.7 - Other staphylococcus as the cause of diseases classified elsewhere (6) CAD (coronary artery disease), [place] coronary artery Status: Chronic Qualifiers:
--- NOTE | 2020-07-23 15:10 | PC.NURSE ---
1505: PATIENT OFF THE UNIT FOR PROCEDURE.
--- NOTE | 2020-07-23 15:18 | HMH.PROC ---
[facility] Procedure Note Procedure Note:: Upper Endoscopy Procedure Report: Esophagogastroduodenoscopy with cold biopsies and Endo Clip placement Endoscopost: Jian Adams II, MD Referring Physician: Bryon Chance MD Date of Procedure: July 23, 2020 Equipment: Olympus GIF 180 standard upper endoscope Sedation: MAC sedation Indications: Mr. Riley is a 69-year-old ventilated gentleman secondary to Covid that has had GI bleeding. He has had blood from his NG tube aspirate and some hematemesis. He has had a total of 3 units PRBCs transfused over the last 72 hours. His hemoglobin and hematocrit today were 8.0 and 28.2. The patient has had no abdominal pain or melena. He is not on any anticoagulation or NSAIDs. He is on PPI therapy IV and H2 antagonist. Procedure: Prior to the procedure, a history and physical exam was performed, and patient's medications and allergies were reviewed. The risks, benefits and alternatives of the sedation and procedure were discussed with the patient. All questions were answered and informed consent was obtained. The patient was brought to the procedure room. Patient identification and proposed procedure were verified by the physician and the nurse. The patient was placed in a left lateral decubitus position and the scope was passed under direct vision. Throughout the procedure, the patient's blood pressure, pulse, and oxygen saturations were monitored continuously. The upper GI endoscopy was accomplished without difficulty. The patient tolerated the procedure well. Findings: The scope was passed directly into the upper esophagus and advanced to the third portion of the duodenum. The post bulbar duodenum and duodenal bulb were normal with normal mucosa and conniventes. The scope was withdrawn through a normal duodenal bulb and pylorus into the stomach. There was moderate gastropathy. 2 cold biopsies were taken from the antrum and body to rule out H. pylori there was hemorrhagic gastritis with several areas of focal heme but no active hemorrhage. Along the lesser curvature in the body of the stomach was a larger area with a small amount of clot and superficial ulceration with some black eschar. This entire ulcerated lesion which was approximately 6 to 7 mm was endoclipped (with a single Endo Clip) to provide full hemostasis and prevent any further hemorrhage. There were a few very superficial scattered erosions in the antrum and body. There was no evidence of any AVMs, polyps or other abnormality. There was no hiatal hernia. The scope was then withdrawn into the esophagus. There was no evidence of any varices or other reflux esophagitis. The remainder of the esophageal mucosa was normal. Impression: 1. Hemorrhagic gastritis/erosive gastritis with a single superficial ulceration with clot along the lesser curvature status post Endo Clip placement Plan: I would add misoprostol 200 mcg p.o. 3 times daily for additional healing of the gastric mucosa and ulceration. I would continue PPI therapy. I will check biopsies to rule out H. pylori. I do feel this is stress ulceration from respiratory failure/pulmonary status.
--- NOTE | 2020-07-23 15:42 | SUR.OPER ---
patient brought down to scope room by hot braider and rn from [facility]. hot braider and horticulture professor remained in scope room during the procedure.
[2020-07-23 17:47] LABS: Thyroid Stimulating Hormone 0.39 uIU/mL (0.465-4.68)
[2020-07-23 18:05] LABS: Vitamin B12 947 pg/mL (239-931)
[2020-07-23 18:17] LABS: Barbiturates Screen,Urine Negative ng/ml (<200); Benzodiazepines Screen,Urine Negative ng/ml (<200)
[2020-07-23 18:18] LABS: Amphetamine/Metha Screen,Urine Negative ng/ml (<1000)
--- NOTE | 2020-07-23 18:18 | XR_ITS ---
PROCEDURE: XR CHEST PORTABLE CLINICAL HISTORY: Verify OG Tube placement COMPARISON: CT CT CHEST WO CON from 07/16/2020 CR XR CHEST PORTABLE from 07/21/2020 CR XR CHEST PORTABLE from 07/22/2020 CR XR CHEST PORTABLE from 07/23/2020 FINDINGS: 1824 hours Endotracheal tube, left subclavian central venous line, and orogastric tube are all in good position. Bilateral pneumonia once again noted. There it is some increasing density in the right infrahilar region. No evidence of pneumothorax. There remains some subcutaneous emphysema in the right scapular region. IMPRESSION: Tubes and lines in good position. Slight worsening right lower lobe pneumonia. Dictated by: Michele Sheth MD 07/24/2020 05:54 Michele Sheth MD in [facility] 07/24/2020 05:54
[2020-07-23 18:19] LABS: Cannabinoid Screen,Urine Negative ng/ml (<50); Methadone Screen,Urine Negative ng/ml (<300)
[2020-07-23 18:20] LABS: Cocaine Screen,Urine Negative ng/ml (<300)
[2020-07-23 18:21] LABS: Opiate Screen,Urine Negative ng/ml (<300); Phencyclidine Screen,Urine Negative ng/ml (<25)
--- NOTE | 2020-07-23 20:28 | PC.NURSE ---
1511 Pt transported off of unit via stretcher to endoscopy suite for EGD. Accompanying staff, Paul Hua RT, Miles Bui LAYDOWN MACHINE OPERATOR, S Thaddeus RN, Gera Granados RN. returned to unit following procedure at approx 1530
[2020-07-24] VITALS (38 sets, daily range): BP systolic 94–135; BP diastolic 55–74; PULSE 61–122; RESP 20–35; TEMP 36.6–39; O2SAT 90–97; BMI 24.6
--- NOTE | 2020-07-24 05:00 | XR_ITS ---
PROCEDURE: XR CHEST PORTABLE CLINICAL HISTORY: intubation Follow-up pneumonia COMPARISON: CT CT CHEST WO CON from 07/16/2020 CR XR CHEST PORTABLE from 07/22/2020 CR XR CHEST PORTABLE from 07/23/2020 CR XR CHEST PORTABLE from 07/23/2020 FINDINGS: 5:19 a.m. Endotracheal tube, left subclavian central venous line, and nasogastric tube all remain in good position. Persistent bilateral pneumonia not significantly changed. The subcutaneous emphysema and pneumomediastinum is no longer apparent. IMPRESSION: No change in bilateral pneumonia Tubes and lines remain in good position Dictated by: Michele Sheth MD 07/24/2020 05:44 Michele Sheth MD in [facility] 07/24/2020 05:44
[2020-07-24 06:06] LABS: Basophils # 0.1 K/mm3 (0-0.2); Basophils % 0.4 % (0.1-2.0); Eosinophils % 0.3 % (0.1-12.0); Hematocrit 30.5 % (42.0-52.0); Hemoglobin 9.7 g/dL (14.1-18.0); Lymphocytes # 0.4 K/mm3 (0.7-4.5); Lymphocytes % 3.3 % (10-50); Mean Corpuscular Hemoglobin 29.8 pg (27.0-31.2); Mean Corpuscular Volume 93.1 fl (80-94); Mean Platelet Volume 8.6 fl (7.4-10.4); Monocytes # 0.4 K/mm3 (0.1-1.0); Monocytes % 3.4 % (1.7-9.3); Neutrophils # 11.8 K/mm3 (1.8-7.8); Neutrophils % 92.5 % (37.0-80.0); Platelet Count 140 K/mm3 (142-424); Red Blood Count 3.27 M/mm3 (4.60-6.20); Red Cell Distribution Width 17.2 % (11.5-17.5); White Blood Count 12.8 K/mm3 (4.8-10.8)
[2020-07-24 06:11] LABS: Chloride 112 mmol/L (98-107); Potassium 4.3 mmoL/L (3.5-5.1)
[2020-07-24 06:14] LABS: Alanine Aminotransferase 173 U/L (12-78); Albumin Level 2.2 g/dl (3.5-5.0); Albumin/Globulin Ratio 0.9 (1.1-1.8); Alkaline Phosphatase 74 U/L (38-126); Anion Gap 5.3 mEq/L (5-15); Aspartate Amino Transferase 160 U/L (17-59); Bilirubin,Total 0.4 mg/dl (0.2-1.3); Blood Urea Nitrogen 75 mg/dl (9-20); Calcium 7.6 mg/dl (8.4-10.2); Carbon Dioxide 39 mmol/L (22.0-30.0); Creatinine Clearance Estimated 48 mL/min (50-200); Estimated Glomerular Filt Rate 38 ml/min (>60); GFR (African American) 46 ML/MIN (>60); Globulin 2.4 g/dL (1.3-3.2); Glucose 247 mg/dl (74-100); Total Protein,Serum 4.6 g/dl (6.3-8.2)
--- NOTE | 2020-07-24 06:18 | PC.NURSE ---
patient has been febrile all evening with Tylenol given q 6hrs per AUG and used ice packs both unsuccessful in bringing fever to WNL. Spoke with Dr. Chance at 0540 this morning r/t it being too early to give acetaminophen (45 mins early) and if he wanted to give it rectally or different medication. Dr. Chance gave v.o. to give early early orally via OG tube. Patient has bleeding ulcer and NSAIDS are contraindicated. Patient biting ETT tube respiratory placed bite guard. Is currently infusing Levophed 2mcg/hr; BP has remained WNL HR has been >100 most of the night. No acute distress noted at this time.
[2020-07-24 06:46] LABS: MANUAL DIFFERENTIAL MANUAL DIFFERENTIAL (MANUAL DIFF)
[2020-07-24 06:50] LABS: Sodium 152 mmol/L (136-145)
[2020-07-24 07:18] LABS: ABG Base Excess 5.6 mmol/L (-2.4-2.3); ABG Oxygen Saturation 94 % (90-100); ABG PH 7.36 mmol/L (7.35-7.45); ABG PO2 75.5 mmhg (80-100); ABG TCO2 32.7 mmhg (23-27)
[2020-07-24 07:20] LABS: Allen's Test UNABLE; Oxygen 75 %; PEEP 8; Source Left Radial; Tidal Volume 480; Vent Rate 24
[2020-07-24 07:21] LABS: ABG PCO2 55.8 mmhg (35.0-45.0)
[2020-07-24 08:12] LABS: Lymphocytes % 4 % (10-50); Monocytes % 2 % (2-9); Neutrophils % 94 % (42-76); Total Cells Counted 100
[2020-07-24 08:13] LABS: Platelet Estimate Normal; RBC Morphology Normal
--- NOTE | 2020-07-24 08:16 | HMH.PHACONS ---
- Pharmacy Consult Date: 07/24/20 Time: 08:16 Referring provider: DR. HAMMOND Reason for Consult:: VANCOMYCIN TROUGH LEVEL AND DOSE CHANGE Allergies and ADEs:: Allergies Allergy/AdvReac Type Severity Reaction Status Date / Time ceftriaxone [From Rocephin] Allergy Mild Verified 05/24/20 09:28 Home Medications:: Home Medications Medication Instructions Recorded Confirmed Type metformin 1,000 mg tablet 1,000 mg PO BID 04/08/18 06/28/20 History pantoprazole 40 mg tablet,delayed 40 mg PO DAILY 04/08/18 06/28/20 History release tamsulosin 0.4 mg capsule 0.4 mg PO DAILY 04/08/18 06/28/20 History dapagliflozin 10 mg tablet 10 mg PO DAILY 30 Days #30 tab 01/14/19 06/28/20 History Clopidogrel Bisulfate [Plavix] 75 mg PO DAILY 06/27/20 06/28/20 History Losartan Potassium [Cozaar 50mg 50 mg PO DAILY 06/27/20 06/28/20 History Tablets] Metoprolol Succinate [Metoprolol 25 mg PO DAILY 06/27/20 06/27/20 History Succinate 25mg Tablet*] Aspirin [Aspirin 81mg chewable 81 mg PO DAILY 06/28/20 06/28/20 History tab] Azithromycin 250 mg PO DAILY 06/28/20 06/28/20 History Ketorolac Tromethamine 1 drp EYE-RIGHT BID 06/28/20 06/28/20 History Prednisolone Acetate/Pf 1 drop OP BID 06/28/20 06/28/20 History [Prednisolone Acet 1% Eye Drop] Atorvastatin Calcium [Lipitor 40mg 40 mg PO DAILY 06/29/20 06/29/20 History Tab] Multivitamin 1 each PO DAILY 06/29/20 06/29/20 History Height: 1.88 m Weight: 87.09 kg Laboratory Results:: Laboratory Results - last 24 hr 07/23/20 05:30: Total Counted 100, Neutrophils % (Manual) 97 H, Lymphocytes % (Manual) 2 L, Monocytes % (Manual) 1 L, Nucleated RBCs 1, Platelet Estimate Normal, RBC Morphology Normal 07/23/20 16:40: Vitamin B12 947 H, TSH 0.39 L 07/23/20 16:40: Urine Opiates Screen Negative, Urine Methadone Screen Negative, Ur Barbituates Screen Negative, Ur Phencyclidine Scrn Negative, Ur Amphetamines Screen Negative, U Benzodiazepines Scrn Negative, Urine Cocaine Screen Negative, U Marijuana (THC) Screen Negative 07/24/20 05:35: Sodium 152 H*, Potassium 4.3, Chloride 112 H, Carbon Dioxide 39 H, Anion Gap 5.3, BUN 75 H, Creatinine 1.80 H, Estimated Creat Clear 48, Estimated GFR 38 L, Est GFR ( Amer) 46 L, Glucose 247 H, Calcium 7.6 L, Total Bilirubin 0.4, AST 160 H, ALT 173 H, Alkaline Phosphatase 74, Total Protein 4.6 L, Albumin 2.2 L, Globulin 2.4, Albumin/Globulin Ratio 0.9 L 07/24/20 05:35: Vancomycin Trough 26.0 H 07/24/20 05:35: WBC 12.8 H, RBC 3.27 L, Hgb 9.7 L, Hct 30.5 L, MCV 93.1, MCH 29.8, MCHC 32.0, RDW 17.2, Plt Count 140 L, MPV 8.6, Neut % (Auto) 92.5 H, Lymph % (Auto) 3.3 L, [place] % (Auto) 3.4, Eos % (Auto) 0.3, Baso % (Auto) 0.4, Neut # (Auto) 11.8 H, Lymph # (Auto) 0.4 L, [place] # (Auto) 0.4, Eos # (Auto) 0.0, Baso # (Auto) 0.1, Total Counted 100, Neutrophils % (Manual) 94 H, Lymphocytes % (Manual) 4 L, Monocytes % (Manual) 2, Platelet Estimate Normal, RBC Morphology Normal 07/24/20 07:00: Specimen Source Left radial, O2 % 75, ABG pH 7.36, ABG pCO2 55.8 H, ABG pO2 75.5 L, ABG HCO3 31.0 H, ABG Total CO2 32.7 H, ABG O2 Saturation 94, ABG Base Excess 5.6 H, Michele Test Unable, Vent Rate 24, Tidal Volume 480, PEEP 8 Medical History: Reports:: Coronary Artery Disease (Stent placement March 2018.), Diabetes Mellitus Type 2, Gastroesophageal Reflux Disease(GERD), Hyperlipidemia, Hypertension Denies:: Cancer, Diabetes Mellitus Type 1, MRSA, Pulmonary Embolism Assessment and Plan (1) Respiratory failure with hypoxia Status: Acute Qualifiers: Chronicity: acute Qualified Code(s): J96.01 - Acute respiratory failure with hypoxia Category: Medical Code(s): J96.91 - Respiratory failure, unspecified with hypoxia (2) Pneumonia due to COVID-19 virus Status: Acute Category: Medical Code(s): U07.1 - COVID-19; J12.82 - Pneumonia due to coronavirus disease 2019 (3) Anemia Status: Acute Category: Medical Code(s): D64.9 - Anemia, unspecified (4) GI bleed
--- NOTE | 2020-07-24 08:29 | HMH.PULMPN ---
Internal Medicine - PN: Subj *Date: 07/24/20 *Time: 12:58 Interval history: No acute respiratory events overnight. Exam - Constitutional Constitutional:: Present: no acute distress, comfortable - HENMT Exam HENMT: Present: normocephalic, atraumatic - Neck Exam Neck:: Present: thyroid normal, no lymphadenopathy - Respiratory Exam Respiratory:: Present: normal respiratory effort, crackles. Absent: no respiratory distress - Cardiovascular Exam Cardiac:: Present: S1, S2 - GI Exam GI:: Present: soft, no hepatosplenomegaly - Skin Exam Skin: Present: warm, no rash - Neurological Exam Neurological: Absent: alert, awake, normal cognition - Extremities Exam Extremities: Present: no cyanosis, no clubbing, no edema Assessment and Plan (1) Respiratory failure with hypoxia Status: Acute Qualifiers: Chronicity: acute Qualified Code(s): J96.01 - Acute respiratory failure with hypoxia Category: Medical Code(s): J96.91 - Respiratory failure, unspecified with hypoxia (2) Pneumonia due to COVID-19 virus Status: Acute Category: Medical Code(s): U07.1 - COVID-19; J12.82 - Pneumonia due to coronavirus disease 2019 (3) Anemia Status: Acute Category: Medical Code(s): D64.9 - Anemia, unspecified (4) GI bleed Status: Acute Category: Medical Code(s): K92.2 - Gastrointestinal hemorrhage, unspecified (5) Staphylococcus epidermidis bacteremia Status: Acute Category: Medical Code(s): R78.81 - Bacteremia; B95.7 - Other staphylococcus as the cause of diseases classified elsewhere (6) CAD (coronary artery disease), [place] coronary artery Status: Chronic Qualifiers: [place] vs. 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 use: without local intermodal truck driver use Diabetes mellitus complication status: without complication Qualified Code(s): E11.9 - Type 2 diabetes mellitus without complications Category: Medical Code(s): E11.9 - Type 2 diabetes mellitus without complications (8) History of left below knee amputation Status: Chronic Category: Medical Code(s): Z89.512 - Acquired absence of left leg below knee (9) History of osteomyelitis Status: Chronic Category: Medical Code(s): Z87.39 - Personal history of other diseases of the musculoskeletal system and connective tissue (10) Sepsis Status: Acute Qualifiers: Sepsis type: sepsis due to unspecified organism Sepsis acute organ dysfunction status: with acute organ dysfunction Severe sepsis acute organ dysfunction type: acute respiratory failure Acute respiratory failure type: with hypoxia Severe sepsis shock status: with septic shock Qualified Code(s): A41.9 - Sepsis, unspecified organism; R65.21 - Severe sepsis with septic shock; J96.01 - Acute respiratory failure with hypoxia Category: Medical Code(s): A41.9 - Sepsis, unspecified organism (11) Elevated LFTs Status: Acute Category: Medical Code(s): R79.89 - Other specified abnormal findings of blood chemistry - Assessment and plan all Dx Assessment and Plan for all problems:: #COVID-19 pneumonia: #Acute hypoxic respiratory failure requiring mechanical ventilation: 69-year-old no prior respiratory complaints never smoker with recent diagnosis of COVID-19 present with worsening respiratory failure cough and productive phlegm. CT showed bilateral diffuse pulmonary infiltrates. No evidence of acute pulmonary embolism. Patient respiratory status gradually worsened throughout his hospital course with increasing oxygen requirements to BiPAP,. Patient was initially DNR/DNI change his CODE STATUS t
--- NOTE | 2020-07-24 09:08 | HMH.ACPN2 ---
Internal Medicine - PN: Subj *Date: 07/24/20 *Time: 09:58 Interval history: Patient had EGD yesterday and was found to have a bleeding ulcer that was treated. He has had fever overnight. Exam Vital signs and Labs for Last 24 Hours: Temp Pulse Resp BP Pulse Ox 99.7 F H 110 H 34 H 95/64 L 92 L 07/24/20 08:52 07/24/20 08:52 07/24/20 08:52 07/24/20 08:52 07/24/20 08:52 Laboratory Results - last 24 hr 07/23/20 05:30: Total Counted 100, Neutrophils % (Manual) 97 H, Lymphocytes % (Manual) 2 L, Monocytes % (Manual) 1 L, Nucleated RBCs 1, Platelet Estimate Normal, RBC Morphology Normal 07/23/20 16:40: Vitamin B12 947 H, TSH 0.39 L 07/23/20 16:40: Urine Opiates Screen Negative, Urine Methadone Screen Negative, Ur Barbituates Screen Negative, Ur Phencyclidine Scrn Negative, Ur Amphetamines Screen Negative, U Benzodiazepines Scrn Negative, Urine Cocaine Screen Negative, U Marijuana (THC) Screen Negative 07/24/20 05:35: Sodium 152 H*, Potassium 4.3, Chloride 112 H, Carbon Dioxide 39 H, Anion Gap 5.3, BUN 75 H, Creatinine 1.80 H, Estimated Creat Clear 48, Estimated GFR 38 L, Est GFR ( Amer) 46 L, Glucose 247 H, Calcium 7.6 L, Total Bilirubin 0.4, AST 160 H, ALT 173 H, Alkaline Phosphatase 74, Total Protein 4.6 L, Albumin 2.2 L, Globulin 2.4, Albumin/Globulin Ratio 0.9 L 07/24/20 05:35: Vancomycin Trough 26.0 H 07/24/20 05:35: WBC 12.8 H, RBC 3.27 L, Hgb 9.7 L, Hct 30.5 L, MCV 93.1, MCH 29.8, MCHC 32.0, RDW 17.2, Plt Count 140 L, MPV 8.6, Neut % (Auto) 92.5 H, Lymph % (Auto) 3.3 L, [place] % (Auto) 3.4, Eos % (Auto) 0.3, Baso % (Auto) 0.4, Neut # (Auto) 11.8 H, Lymph # (Auto) 0.4 L, [place] # (Auto) 0.4, Eos # (Auto) 0.0, Baso # (Auto) 0.1, Total Counted 100, Neutrophils % (Manual) 94 H, Lymphocytes % (Manual) 4 L, Monocytes % (Manual) 2, Platelet Estimate Normal, RBC Morphology Normal 07/24/20 07:00: Specimen Source Left radial, O2 % 75, ABG pH 7.36, ABG pCO2 55.8 H, ABG pO2 75.5 L, ABG HCO3 31.0 H, ABG Total CO2 32.7 H, ABG O2 Saturation 94, ABG Base Excess 5.6 H, Michele Test Unable, Vent Rate 24, Tidal Volume 480, PEEP 8 Vital Signs - 24 hr 07/23/20 10:00 07/23/20 10:39 07/23/20 11:00 Temperature 99.2 F 100.0 F H Pulse Rate Pulse Rate [Apical] 112 H 107 H Respiratory Rate 30 H 26 H 28 H Blood Pressure [Right Arm] 99/65 L 94/63 L 02 Sat by Pulse Oximetry 92 L 94 L 92 L 07/23/20 12:00 07/23/20 13:00 07/23/20 13:48 Temperature 99.8 F H 100.9 F H Pulse Rate 110 H 116 H Pulse Rate [Apical] 107 H 111 H Respiratory Rate 26 H 33 H 35 H Blood Pressure [Right Arm] 105/60 L 108/63 L 02 Sat by Pulse Oximetry 96 91 L 94 L 07/23/20 14:00 07/23/20 15:00 07/23/20 16:00 Temperature 99.8 F H 100.8 F H Pulse Rate 100 H Pulse Rate [Apical] 67 109 H 108 H Respiratory Rate 24 24 25 H Blood Pressure [Right Arm] 87/52 L 105/60 L 117/65 02 Sat by Pulse Oximetry 97 95 93 L 07/23/20 17:00 07/23/20 18:00 07/23/20 18:27 Temperature Pulse Rate 106 H Pulse Rate [Apical] 107 H 108 H Respiratory Rate 24 24 24 Blood Pressure [Right Arm] 83/45 L 103/61 L 02 Sat by Pulse Oximetry 99 99 100 07/23/20 19:00 07/23/20 20:00 07/23/20 21:00 Temperature 100.7 F H 101.2 F H Pulse Rate 100 H Pulse Rate [Apical] 109 H 112 H 106 H Respiratory Rate 24 27 H 36 H Blood Pressure [Right Arm] 112/64 120/65 117/65 02 Sat by Pulse Oximetry 94 L 91 L 93 L 07/23/20 21:55 07/23/20 22:00 07/23/20 23:00 Temperature 100.8 F H 100.2 F H Pulse Rate Pulse Rate [Apical] 106 H 105 H Respiratory Rate 27 H 26 H Blood Pressure [Right Arm] 121/63 110/78 02 Sat by Pulse Oximetry 90 L 94 L 91 L 07/24/20 00:00 07/24/20 01:00 07/24/20 02:00 Temperature 101.4 F H 102.2 F H 102.2 F H Pulse Rate 120 H Pulse Rate [Apical] 94 H 115 H 115 H Respiratory Rate 29 H 24 24 Blood Pressure [Right Arm] 135/74 104/55 L 104/55 L 02 Sat by Pulse Oximetry 91 L 91 L 91 L 07/24/20 02:41 07/24/20 03:00 07/24/20 04:00 Temperature 101.9 F H Pulse
[2020-07-24 09:30] LABS: POC Glucose,Bedside 185 (70-110)
[2020-07-24 09:30] LABS: POC Glucose,Bedside 192 (70-110)
[2020-07-24 09:30] LABS: POC Glucose,Bedside 220 (70-110)
[2020-07-24 09:30] LABS: POC Glucose,Bedside 243 (70-110)
[2020-07-24 09:30] LABS: POC Glucose,Bedside 224 (70-110)
--- NOTE | 2020-07-24 10:00 | FL_ITS ---
PROCEDURE: FL GUIDED LUMBAR PUNCTURE LP CLINICAL INDICATION: Fever unknown source, altered mental status COMPARISON: No exams were available for comparison TECHNIQUE: Telephone consent was obtained from the patient's . Under local anesthesia with 1% lidocaine and under fluoroscopic guidance a 20-gauge spinal needle was inserted into the L3-L4 interspace. Approximately 12 cc of clear CSF was obtained and sent to laboratory for analysis. The patient tolerated the procedure well without evidence of immediate complication IMPRESSION: Successful fluoroscopy guided lumbar puncture without complications. Dictated by: Michele Sheth MD 07/25/2020 10:21 Michele Sheth MD in [facility] 07/25/2020 10:21
--- NOTE | 2020-07-24 10:25 | CT_ITS ---
PROCEDURE: CT SINUS WO CON CLINICAL HISTORY: Shock Sepsis, looking for source of sepsis COMPARISON: No exams were available for comparison TECHNIQUE: Axial images obtained with sagittal and coronal reformats. All CT scans at the facility use one or more dose reduction, viz: automated exposure control, ma/kV adjustment per patient size (including targeted exams where dose is matched to indication, i.e. head), or iterative reconstruction technique. FINDINGS: The frontals, ethmoids, and maxillary sinuses have an unremarkable appearance. There is a small air-fluid level within the sphenoid sinus. No mucosal thickening is apparent. There is air-fluid level within the nasopharynx. The patient does have an endotracheal tube and orogastric tube present. No bony destructive process evident. There is opacification of the right mastoid sinuses. No bony destruction of the sinus evident. IMPRESSION: 1. Opacified right mastoid sinus which may be due to inflammation or infection. 2. Small air-fluid level in the left aspect of the sphenoid sinus nonspecific. No significant mucosal thickening of the paranasal sinuses. 3. Air-fluid level in the nasopharynx in this patient that is intubated with an orogastric tube Dictated by: Michele Sheth MD 07/24/2020 16:24 Michele Sheth MD in [facility] 07/24/2020 16:24
--- NOTE | 2020-07-24 10:25 | CT_ITS ---
PROCEDURE: CT CHEST WO CON CLINICAL INDICATION: hypoxia COMPARISON: CT CT CHEST WO CON from 07/16/2020 TECHNIQUE: Axial images obtained with sagittal and coronal reformats. All CT scans at the facility use one or more dose reduction, viz: automated exposure control, ma/kV adjustment per patient size (including targeted exams where dose is matched to indication, i.e. head), or iterative reconstruction technique. FINDINGS: There is diffuse ground-glass attenuation once again noted in the lungs which may be due to residual Covid19 pneumonia or pulmonary edema. Dense consolidation is present in the right upper lobe posteriorly and right lower lobe posteriorly as well as the left lower lobe posteriorly. The consolidation is worse than when compared to the previous exam. Subcutaneous emphysema and pneumomediastinum has improved. There is minimal thickening of the pericardium. The endotracheal tube tip is in good position 4 cm above the pj. Left subclavian central venous line tip is in the region the SVC. The orogastric tube tip is in the region the body of the stomach. IMPRESSION: 1. Diffuse ground-glass attenuation of the lungs which not significantly changed. This may be inflammatory/infective or due to edema. 2. Worsening bilateral pneumonia Dictated by: Michele Sheth MD 07/24/2020 16:17 Michele Sheth MD in [facility] 07/24/2020 16:20
[2020-07-24 11:22] LABS: POC Glucose,Bedside 191 (70-110)
[2020-07-24 11:22] LABS: POC Glucose,Bedside 174 (70-110)
[2020-07-24 11:22] LABS: POC Glucose,Bedside 210 (70-110)
[2020-07-24 11:22] LABS: POC Glucose,Bedside 194 (70-110)
[2020-07-24 11:22] LABS: POC Glucose,Bedside 269 (70-110)
[2020-07-24 11:22] LABS: POC Glucose,Bedside 265 (70-110)
[2020-07-24 12:36] LABS: POC Glucose,Bedside 234 (70-110)
[2020-07-24 12:36] LABS: POC Glucose,Bedside 88 (70-110)
--- NOTE | 2020-07-24 13:44 | PC.NURSE ---
pt transported to xray with monitor and portable vent in place. juan r judge rn and clemencia conner. assiting with transfer.
[2020-07-24 14:31] LABS: Activated Partial Thrombo Time 22.9 seconds (23.6-34.0); INR 1.04 (0.9-1.1); Prothrombin Time 11.5 seconds (9.4-11.8)
--- NOTE | 2020-07-24 16:34 | PC.NURSE ---
No acute changes noted this shift, Pt remains intubated, not receiving any sedation. LP and CT scans completed this shift, pt tolerated well, 7.[address] 22@lip, Pt has been turned and provided oral care and suctioning q2h this shift, L BKA, lung sounds diminished in BL bases, abd soft and nontender, active bowel sounds in all quads, minimal GRV this shift, OG tube in place @ 62, FC patent and draining clear yellow urine at bedside, trace edema noted peripherally, pt does attempt to move extremities at times and opens eyes to name but cannot follow simple commands, continues on levophed drip at 2mcg, vss, will continue to monitor.
[2020-07-24 17:00] LABS: Glucose,CSF 129 mg/dl (40-70)
[2020-07-24 18:27] LABS: Appearance,CSF Clear (Clear); Red Blood Cell,CSF 19 cells/uL (0); Volume,CSF 14 mL; White Blood Cell,CSF 4 cells/uL (0-5)
[2020-07-24 19:08] LABS: Mononuclear WBCs,CSF 99 %; Polynuclear WBCs,CSF 1 %
[2020-07-24 21:55] LABS: POC Glucose,Bedside 305 (70-110)
[2020-07-25] VITALS (34 sets, daily range): BP systolic 94–139; BP diastolic 52–77; PULSE 90–122; RESP 22–35; TEMP 36–37.9; O2SAT 87–97; BMI 24.6
[2020-07-25 04:47] LABS: POC Glucose,Bedside 186 (70-110)
[2020-07-25 04:47] LABS: POC Glucose,Bedside 293 (70-110)
[2020-07-25 04:47] LABS: POC Glucose,Bedside 232 (70-110)
--- NOTE | 2020-07-25 06:00 | XR_ITS ---
PROCEDURE: XR CHEST PORTABLE CLINICAL HISTORY: resp failure Covid19 pneumonia COMPARISON: CR XR CHEST PORTABLE from 07/23/2020 CR XR CHEST PORTABLE from 07/23/2020 CR XR CHEST PORTABLE from 07/24/[address] CHEST WO CON from 07/24/2020 FINDINGS: 5:12 a.m.. Endotracheal tube, nasogastric tube, and left subclavian central venous line all remain in satisfactory position. No change in the bilateral pneumonia. No acute bony findings. No evidence of pneumomediastinum pneumothorax or subcutaneous air. IMPRESSION: No change in bilateral pneumonia Tubes and lines remain in good position Dictated by: Michele Sheth MD 07/25/2020 05:42 Michele Sheth MD in [facility] 07/25/2020 05:42
[2020-07-25 07:18] LABS: ABG Base Excess 6.7 mmol/L (-2.4-2.3); ABG HCO3 32.7 mmhg (22.0-26.0); ABG Oxygen Saturation 95 % (90-100); ABG PH 7.33 mmol/L (7.35-7.45); ABG PO2 81.6 mmhg (80-100); ABG TCO2 34.7 mmhg (23-27)
[2020-07-25 07:21] LABS: Allen's Test Patient Unable; Oxygen 80 %; PEEP 8; Source Left Radial; Tidal Volume 480; Vent Rate 26
[2020-07-25 07:24] LABS: ABG PCO2 64.1 mmhg (35.0-45.0)
[2020-07-25 08:36] LABS: Triiodothyronine (T3) Free 1.1 pg/mL (2.0-4.4)
--- NOTE | 2020-07-25 08:40 | HMH.ACPN2 ---
<Suzi Henderson - Last Filed: 07/25/20 08:40> Internal Medicine - PN: Subj *Date: 07/25/20 *Time: 08:40 Interval history: Per nursing: Patient has been stable through the night. Some blood was noted from OG tube. Patient does respond Laboratory data/, morning is pending. Chest x-ray revealed no change in bilateral pneumonia tubes and lines remain in good position. He also had a CT of the sinuses yesterday which revealed opacified right mastoid sinus possibly due to inflammation or infection. Small air-fluid level in the left aspect of the sphenoid sinus without significant mucosal thickening of the paranasal sinuses. Air-fluid level in the nasopharynx on a patient that is intubated with a OG tube. He also had a CT of the chest yesterday which revealed diffuse ground glass attenuation of the lungs which has not significantly changed. Possibly inflammatory/infection are due to edema. Worsening bilateral pneumonia. Patient had an LP completed yesterday with culture showing no cells and no organisms. Patient remains on the ventilator With tidal volume of 490, assist-control 26, 8 of PEEP and FiO2 of 80%. Patient continues to assist the ventilator 30 to 35/min. He remains on tube feedings and is tolerating well. Continues with Goncalves catheter to bedside drainage. This a.m. ABGs show a pH of 7.33 PCO2 of 64.1 PO2 of 81.6 and a bicarb of 32 Exam Vital signs and Labs for Last 24 Hours: Temp Pulse Resp BP Pulse Ox 98.9 F 116 H 28 H 107/67 L 94 L 07/25/20 06:18 07/25/20 06:18 07/25/20 06:18 07/25/20 06:18 07/25/20 06:18 Laboratory Results - last 24 hr 07/21/20 04:10: POC Glucose 210 H 07/21/20 16:52: POC Glucose 224 H 07/21/20 20:37: POC Glucose 192 H 07/22/20 05:09: POC Glucose 269 H 07/22/20 11:01: POC Glucose 174 H 07/22/20 16:58: POC Glucose 243 H 07/22/20 20:24: POC Glucose 191 H 07/23/20 04:24: POC Glucose 220 H 07/23/20 12:08: POC Glucose 265 H 07/23/20 18:06: POC Glucose 185 H 07/23/20 19:49: POC Glucose 194 H 07/24/20 05:10: POC Glucose 88 07/24/20 05:14: POC Glucose 234 H 07/24/20 05:35: PT 11.5, INR 1.04, APTT 22.9 L 07/24/20 10:50: Free T4 0.60 L 07/24/20 10:50: Free T3 1.1 L 07/24/20 11:25: POC Glucose 186 H 07/24/20 14:45: CSF Volume 14, CSF Appearance Clear, CSF WBC 4, CSF RBC 19, CSF Mononuclear WBCs % 99, CSF Polynuclear WBCs % 1 07/24/20 14:45: CSF Glucose 129 H, CSF Total Protein 38.0 07/24/20 16:53: POC Glucose 232 H 07/24/20 21:48: POC Glucose 305 H* 07/25/20 04:40: POC Glucose 293 H 07/25/20 07:00: Specimen Source Left radial, O2 % 80, ABG pH 7.33 L, ABG pCO2 64.1 H, ABG pO2 81.6, ABG HCO3 32.7 H, ABG Total CO2 34.7 H, ABG O2 Saturation 95, ABG Base Excess 6.7 H, Michele Test Patient unable, Vent Rate 26, Tidal Volume 480, PEEP 8 I & O for Last 24 hours: Intake & Output 07/22/20 07/23/20 07/24/20 07/25/20 11:59 11:59 11:59 11:59 Intake Total 3861 / 3861 4012 / 4012 1937 / 1937 3455 / 3455 Output Total 1559 / 1659 2350 / 2450 2325 / 2325 1838 / 1838 Balance 2302 / 2202 1662 / 1562 -388 / -388 1617 / 1617 Weight 192 lb 14.4 oz 196 lb 4.8 oz 192 lb 192 lb 1 oz Microbiology Reports for the Last 24 Hours: Microbiology 07/24/20 Unknown Cerebral Spinal Fluid Gram Stain - Final 07/19/20 12:00 Blood Blood Culture - Final NO GROWTH AFTER 5 DAYS 07/19/20 12:00 Blood Blood Culture - Final NO GROWTH AFTER 5 DAYS - Constitutional no acute distress Comments: Slept through exam - *Routine Respiratory Exam Present: CTA bilaterally - *Routine Cardiovascular Exam Present: RRR Comments: Sinus tach - *Routine Abdominal Exam Present: soft, normoactive bowel sounds. Absent: tenderness Comments: Continues with continuous tube feedings. Per OG tube. - *Routine Exam Comments: Goncalves catheter to bedside drainage - *Routine Extremities Exam Present: edema (Right leg and bilateral arms) - *Routine Dai
[2020-07-25 10:58] LABS: Basophils # 0.1 K/mm3 (0-0.2); Basophils % 0.7 % (0.1-2.0); Eosinophils # 0.1 K/mm3 (0.0-0.4); Eosinophils % 1.5 % (0.1-12.0); Hematocrit 30.1 % (42.0-52.0); Hemoglobin 9.3 g/dL (14.1-18.0); Lymphocytes # 0.4 K/mm3 (0.7-4.5); Lymphocytes % 4.6 % (10-50); Mean Corpuscular HGB Conc 30.8 g/dL (31.8-35.4); Mean Corpuscular Hemoglobin 29.6 pg (27.0-31.2); Mean Corpuscular Volume 96.2 fl (80-94); Monocytes # 0.3 K/mm3 (0.1-1.0); Monocytes % 3.4 % (1.7-9.3); Neutrophils # 8.6 K/mm3 (1.8-7.8); Neutrophils % 89.7 % (37.0-80.0); Platelet Count 113 K/mm3 (142-424); Red Blood Count 3.13 M/mm3 (4.60-6.20); Red Cell Distribution Width 16.9 % (11.5-17.5); White Blood Count 9.6 K/mm3 (4.8-10.8)
[2020-07-25 11:08] LABS: MANUAL DIFFERENTIAL MANUAL DIFFERENTIAL (MANUAL DIFF)
[2020-07-25 11:11] LABS: Anion Gap 1.4 mEq/L (5-15); Calcium 7.4 mg/dl (8.4-10.2); Carbon Dioxide 39 mmol/L (22.0-30.0); Chloride 112 mmol/L (98-107); Creatinine Clearance Estimated 51 mL/min (50-200); Estimated Glomerular Filt Rate 40 ml/min (>60); GFR (African American) 49 ML/MIN (>60); Glucose 240 mg/dl (74-100); Potassium 4.4 mmoL/L (3.5-5.1); Sodium 148 mmol/L (136-145)
--- NOTE | 2020-07-25 11:11 | HMH.PULMPN ---
Internal Medicine - PN: Subj *Date: 07/25/20 *Time: 11:11 Interval history: No acute respiratory events overnight. Exam - Constitutional Constitutional:: Present: comfortable - HENMT Exam HENMT: Present: normocephalic - Neck Exam Neck:: Present: normal visual inspection, thyroid normal - Respiratory Exam Respiratory:: Present: no respiratory distress, crackles - Cardiovascular Exam Cardiac:: Present: S1, S2 - GI Exam GI:: Present: soft - Skin Exam Skin: Present: warm, no rash - Neurological Exam Neurological: Absent: alert, awake, normal cognition Patient still obtunded. Not following commands. Opening eyes to verbal stimuli. - Extremities Exam Extremities: Present: no cyanosis, no clubbing, edema Assessment and Plan (1) Respiratory failure with hypoxia Status: Acute Qualifiers: Chronicity: acute Qualified Code(s): J96.01 - Acute respiratory failure with hypoxia Category: Medical Code(s): J96.91 - Respiratory failure, unspecified with hypoxia (2) Pneumonia due to COVID-19 virus Status: Acute Category: Medical Code(s): U07.1 - COVID-19; J12.82 - Pneumonia due to coronavirus disease 2019 (3) Anemia Status: Acute Category: Medical Code(s): D64.9 - Anemia, unspecified (4) GI bleed Status: Acute Category: Medical Code(s): K92.2 - Gastrointestinal hemorrhage, unspecified (5) Staphylococcus epidermidis bacteremia Status: Acute Category: Medical Code(s): R78.81 - Bacteremia; B95.7 - Other staphylococcus as the cause of diseases classified elsewhere (6) CAD (coronary artery disease), [place] coronary artery Status: Chronic Qualifiers: [place] vs. transplanted heart: [place] heart Associated angina: without angina Qualified Code(s): I25.10 - Atherosclerotic heart disease of [place] coronary artery without angina pectoris Category: Medical Code(s): I25.10 - Atherosclerotic heart disease of [place] coronary artery without angina pectoris (7) DM2 (diabetes mellitus, type 2) Status: Chronic Qualifiers: Diabetes mellitus skilled nursing insulin use: without skilled nursing use Diabetes mellitus complication status: without complication Qualified Code(s): E11.9 - Type 2 diabetes mellitus without complications Category: Medical Code(s): E11.9 - Type 2 diabetes mellitus without complications (8) History of left below knee amputation Status: Chronic Category: Medical Code(s): Z89.512 - Acquired absence of left leg below knee (9) History of osteomyelitis Status: Chronic Category: Medical Code(s): Z87.39 - Personal history of other diseases of the musculoskeletal system and connective tissue (10) Sepsis Status: Acute Qualifiers: Sepsis type: sepsis due to unspecified organism Sepsis acute organ dysfunction status: with acute organ dysfunction Severe sepsis acute organ dysfunction type: acute respiratory failure Acute respiratory failure type: with hypoxia Severe sepsis shock status: with septic shock Qualified Code(s): A41.9 - Sepsis, unspecified organism; R65.21 - Severe sepsis with septic shock; J96.01 - Acute respiratory failure with hypoxia Category: Medical Code(s): A41.9 - Sepsis, unspecified organism (11) Elevated LFTs Status: Acute Category: Medical Code(s): R79.89 - Other specified abnormal findings of blood chemistry - Assessment and plan all Dx Assessment and Plan for all problems:: #COVID-19 pneumonia: #Acute hypoxic respiratory failure requiring mechanical ventilation: 69-year-old no prior respiratory complaints never smoker with recent diagnosis of COVID-19 present with worsening respiratory failure cough and productive phlegm. CT showed bilateral diffuse pulmonary infiltrates. No evidence of acute pulmonary embolism. Patient respiratory status gradually worsened throughout his hospital course with increasing oxygen requirements to BiPAP,. Patient was initially DNR/DNI change his CODE STATUS to
[2020-07-25 11:13] LABS: Blood Urea Nitrogen 81 mg/dl (9-20)
--- NOTE | 2020-07-25 11:13 | PC.NURSE ---
LAB CALLED WITH CRITICAL LABS BUN 81 AND CREATININE 1.70. NOTIFIED Shannan KING RN.
[2020-07-25 11:50] LABS: Lymphocytes % 10 % (10-50); Monocytes % 9 % (2-9); Neutrophils % 81 % (42-76); Platelet Estimate Slight Decrease; RBC Morphology Normal; Total Cells Counted 100
--- NOTE | 2020-07-25 18:43 | PC.WOUNDNOTE ---
Wound Location: COCCYX Length: 9 Width: 6 Depth: Undermining Y/N: N Tunneling cm: Granulation %: Slough/necrotic tissue %: Inflammation/swelling Y/N: Y Pain and/or tenderness Y/N: Exudate: Serosanguinous: X Sanguinous Serosanguinous Seropurulent Purulent Color: Clear Carmen Cloudy/milky [place] Red: X Green Yellow [place] Blue Consistency: Thick Thin: X Amount: None Scant Small Moderate: X Large Odor Y/N: N
--- NOTE | 2020-07-25 18:46 | PC.WOUNDNOTE ---
Wound Location: Length:9 Width: 6 Depth: Undermining Y/N: N Tunneling cm: Granulation %: Slough/necrotic tissue %: Inflammation/swelling Y/N: Y Pain and/or tenderness Y/N: N Exudate: Serosanguinous: X Sanguinous Serosanguinous Seropurulent Purulent Color: Clear Carmen Cloudy/milky [place] Red: X Green Yellow [place] Blue Consistency: Thick Thin: X Amount: None Scant Small Moderate: X Large Odor Y/N: N
--- NOTE | 2020-07-25 19:41 | PC.NURSE ---
No acute changes noted this shift, pt remains intubated, has required frequent suctioning, large amount of secretions noted this shift, has been turned q2h and provided oral care and suctioning, pictures taken of coccyx and uploaded to chart, vss, has remained off levophed this shift, will continue to monitor.
[2020-07-25 22:03] LABS: POC Glucose,Bedside 341 (70-110)
[2020-07-26] VITALS (47 sets, daily range): BP systolic 99–141; BP diastolic 52–78; PULSE 79–120; RESP 24–31; TEMP 36.6–37.8; O2SAT 85–99; BMI 24.5
--- NOTE | 2020-07-26 02:14 | PC.NURSE ---
Patient NPO r/t trach placement today. Has been afebrile throughout the night. VSS stable and urine out WNL. Patient shows no s/s of acute distress at this time. Will continue to monitor.
--- NOTE | 2020-07-26 05:00 | XR_ITS ---
PROCEDURE: XR CHEST PORTABLE CLINICAL HISTORY: intubation Respiratory failure COMPARISON: CR XR CHEST PORTABLE from 07/23/2020 CR XR CHEST PORTABLE from 07/24/[address] CHEST WO CON from 07/24/2020 CR XR CHEST PORTABLE from 07/25/2020 FINDINGS: 4:17 a.m. Endotracheal tube, nasogastric tube and left subclavian central venous line remain in place. There remains diffuse bilateral pneumonia not significantly changed. The No acute bony abnormalities. IMPRESSION: No change in bilateral pneumonia Tubes and lines remain in good position Dictated by: Michele Sheth MD 07/26/2020 05:03 Michele Sheth MD in [facility] 07/26/2020 05:03
[2020-07-26 05:13] LABS: POC Glucose,Bedside 221 (70-110)
[2020-07-26 06:15] LABS: Chloride 111 mmol/L (98-107); Potassium 4.6 mmoL/L (3.5-5.1); Sodium 148 mmol/L (136-145)
[2020-07-26 06:18] LABS: Anion Gap 3.6 mEq/L (5-15); Calcium 7.2 mg/dl (8.4-10.2); Carbon Dioxide 38 mmol/L (22.0-30.0); Creatinine Clearance Estimated 43 mL/min (50-200); Estimated Glomerular Filt Rate 33 ml/min (>60); GFR (African American) 40 ML/MIN (>60); Glucose 229 mg/dl (74-100)
[2020-07-26 06:38] LABS: Basophils # 0.1 K/mm3 (0-0.2); Basophils % 0.6 % (0.1-2.0); Eosinophils # 0.1 K/mm3 (0.0-0.4); Eosinophils % 0.6 % (0.1-12.0); Hematocrit 26.2 % (42.0-52.0); Lymphocytes # 0.6 K/mm3 (0.7-4.5); Lymphocytes % 5.5 % (10-50); Mean Corpuscular HGB Conc 29.7 g/dL (31.8-35.4); Mean Corpuscular Hemoglobin 28.5 pg (27.0-31.2); Mean Platelet Volume 9.6 fl (7.4-10.4); Monocytes # 0.4 K/mm3 (0.1-1.0); Monocytes % 4.2 % (1.7-9.3); Neutrophils % 89.2 % (37.0-80.0); Platelet Count 102 K/mm3 (142-424); Red Blood Count 2.73 M/mm3 (4.60-6.20); Red Cell Distribution Width 15.9 % (11.5-17.5); White Blood Count 10.1 K/mm3 (4.8-10.8)
[2020-07-26 06:39] LABS: Activated Partial Thrombo Time 23.5 seconds (23.6-34.0); INR 1.01 (0.9-1.1); Prothrombin Time 11.2 seconds (9.4-11.8)
[2020-07-26 07:27] LABS: ABG Base Excess 7.4 mmol/L (-2.4-2.3); ABG HCO3 32.6 mmhg (22.0-26.0); ABG Oxygen Saturation 94 % (90-100); ABG PH 7.37 mmol/L (7.35-7.45); ABG PO2 69.6 mmhg (80-100); ABG TCO2 34.4 mmhg (23-27)
[2020-07-26 07:28] LABS: Oxygen 75 %; PEEP 8; Source Right Radial; Tidal Volume 480; Vent Rate 26
[2020-07-26 07:29] LABS: ABG PCO2 57.5 mmhg (35.0-45.0)
--- NOTE | 2020-07-26 07:40 | PC.NURSE ---
Dr. Myles notified of pCO2 57.5 and pO2 69.6.
[2020-07-26 07:51] LABS: Blood Urea Nitrogen 85 mg/dl (9-20)
[2020-07-26 07:53] LABS: Hemoglobin 7.8 g/dL (14.1-18.0)
[2020-07-26 07:54] LABS: MANUAL DIFFERENTIAL MANUAL DIFFERENTIAL (MANUAL DIFF)
--- NOTE | 2020-07-26 08:04 | PC.NURSE ---
LAB CALLED WITH CRITICAL RESULTS. Catherine VAUGHN RN NOTIFIED. BUN 85, CREAT 2.0, HEMOGLOBIN 7.8, AND HEMATOCRIT 26.2.
--- NOTE | 2020-07-26 08:06 | PC.NURSE ---
Dr. Chance notified of the following: H/H 7.8/26.2, BUN 85, and Cr 2.00
--- NOTE | 2020-07-26 08:27 | PC.NURSE ---
NOTIFIED DR HAMMOND OF CRITICAL LABS.
--- NOTE | 2020-07-26 09:08 | HMH.ACPN2 ---
Internal Medicine - PN: Subj *Date: 07/26/20 *Time: 09:10 Interval history: No new events noted overnight. Exam Vital signs and Labs for Last 24 Hours: Temp Pulse Resp BP Pulse Ox 99.2 F 104 H 27 H 120/66 93 L 07/26/20 09:00 07/26/20 09:00 07/26/20 09:00 07/26/20 09:00 07/26/20 09:00 Laboratory Results - last 24 hr 07/25/20 10:40: WBC 9.6, RBC 3.13 L, Hgb 9.3 L, Hct 30.1 L, MCV 96.2 H, MCH 29.6, MCHC 30.8 L, RDW 16.9, Plt Count 113 L, MPV 9.0, Neut % (Auto) 89.7 H, Lymph % (Auto) 4.6 L, [place] % (Auto) 3.4, Eos % (Auto) 1.5, Baso % (Auto) 0.7, Neut # (Auto) 8.6 H, Lymph # (Auto) 0.4 L, [place] # (Auto) 0.3, Eos # (Auto) 0.1, Baso # (Auto) 0.1, Total Counted 100, Neutrophils % (Manual) 81 H, Lymphocytes % (Manual) 10, Monocytes % (Manual) 9, Platelet Estimate Slight decrease, RBC Morphology Normal 07/25/20 10:40: Sodium 148 H, Potassium 4.4, Chloride 112 H, Carbon Dioxide 39 H, Anion Gap 1.4 L, BUN 81 H, Creatinine 1.70 H, Estimated Creat Clear 51, Estimated GFR 40 L, Est GFR ( Amer) 49 L, Glucose 240 H, Calcium 7.4 L 07/25/20 21:55: POC Glucose 341 H* 07/26/20 04:45: WBC 10.1, RBC 2.73 L, Hgb 7.8 L*, Hct 26.2 L, MCV 96.0 H, MCH 28.5, MCHC 29.7 L, RDW 15.9, Plt Count 102 L, MPV 9.6, Neut % (Auto) 89.2 H, Lymph % (Auto) 5.5 L, [place] % (Auto) 4.2, Eos % (Auto) 0.6, Baso % (Auto) 0.6, Neut # (Auto) 9.0 H, Lymph # (Auto) 0.6 L, [place] # (Auto) 0.4, Eos # (Auto) 0.1, Baso # (Auto) 0.1 07/26/20 04:45: PT 11.2, INR 1.01, APTT 23.5 L 07/26/20 04:45: Sodium 148 H, Potassium 4.6, Chloride 111 H, Carbon Dioxide 38 H, Anion Gap 3.6 L, BUN 85 H, Creatinine 2.00 H, Estimated Creat Clear 43, Estimated GFR 33 L, Est GFR ( Amer) 40 L, Glucose 229 H, Calcium 7.2 L 07/26/20 04:48: POC Glucose 221 H 07/26/20 07:00: Specimen Source Right radial, O2 % 75, ABG pH 7.37, ABG pCO2 57.5 H, ABG pO2 69.6 L, ABG HCO3 32.6 H, ABG Total CO2 34.4 H, ABG O2 Saturation 94, ABG Base Excess 7.4 H, Michele Test N/a, Vent Rate 26, Tidal Volume 480, PEEP 8 Vital Signs - 24 hr 07/25/20 10:00 07/25/20 10:39 07/25/20 11:00 Temperature 98.5 F 98.3 F Pulse Rate Pulse Rate [Apical] 115 H 111 H Respiratory Rate 27 H 30 H 30 H Blood Pressure [Right Arm] 95/54 L 116/64 02 Sat by Pulse Oximetry 97 92 L 94 L 07/25/20 12:00 07/25/20 13:00 07/25/20 13:45 Temperature 98.7 F 96.8 F L Pulse Rate 100 H 111 H Pulse Rate [Apical] 110 H 111 H Respiratory Rate 25 H 29 H 31 H Blood Pressure [Right Arm] 104/60 L 111/67 02 Sat by Pulse Oximetry 95 91 L 90 L 07/25/20 14:00 07/25/20 15:00 07/25/20 16:00 Temperature 97.7 F 97.9 F 99.4 F Pulse Rate 121 H Pulse Rate [Apical] 112 H 112 H 107 H Respiratory Rate 26 H 26 H 24 Blood Pressure [Right Arm] 94/62 L 94/62 L 119/66 02 Sat by Pulse Oximetry 94 L 94 L 92 L 07/25/20 17:00 07/25/20 18:00 07/25/20 18:11 Temperature 99.1 F 99.3 F Pulse Rate Pulse Rate [Apical] 114 H 111 H Respiratory Rate 22 26 H 29 H Blood Pressure [Right Arm] 106/64 L 132/66 02 Sat by Pulse Oximetry 91 L 89 L 92 L 07/25/20 19:00 07/25/20 20:00 07/25/20 20:02 Temperature 99.7 F H Pulse Rate 120 H 115 H Pulse Rate [Apical] 105 H 122 H Respiratory Rate 24 35 H Blood Pressure [Right Arm] 118/67 122/65 02 Sat by Pulse Oximetry 92 L 90 L 07/25/20 21:00 07/25/20 21:59 07/25/20 22:16 Temperature 98.5 F Pulse Rate Pulse Rate [Apical] 90 93 H Respiratory Rate 26 H Blood Pressure [Right Arm] 103/52 L 100/59 L 02 Sat by Pulse Oximetry 93 L 95 96 07/25/20 22:55 07/25/20 23:39 07/25/20 23:42 Temperature 99.0 F Pulse Rate 100 H Pulse Rate [Apical] 94 H 96 H Respiratory Rate 28 H 31 H Blood Pressure [Right Arm] 139/59 L 02 Sat by Pulse Oximetry 93 L 95 07/25/20 23:56 07/26/20 00:20 07/26/20 01:00 Temperature 98.6 F 98.9 F Pulse Rate Pulse Rate [Apical] 96 H 99 H Respiratory Rate 31 H 30 H 30 H Blood Pressure [Right Arm] 106/60 L 101/57 L 02 Sat by Pulse Oximetry 95 94 L 94 L 02
[2020-07-26 09:42] LABS: D-Dimer 4.46 ug/mL (0.0-0.5)
[2020-07-26 09:42] LABS: Lymphocytes % 8 % (10-50); Monocytes % 1 % (2-9); Neutrophils % 91 % (42-76); Platelet Estimate Slight Decrease; RBC Morphology Normal; Total Cells Counted 100
[2020-07-26 10:15] LABS: Rapid Plasma Reagin Ab Titer Non Reactive (NonRea<1:1)
[2020-07-26 10:25] LABS: Fibrinogen 451 mg/dL (204-500)
[2020-07-26 11:18] LABS: POC Glucose,Bedside 219 (70-110)
[2020-07-26 11:18] LABS: POC Glucose,Bedside 216 (70-110)
[2020-07-26 11:18] LABS: POC Glucose,Bedside 223 (70-110)
--- NOTE | 2020-07-26 11:27 | PC.NURSE ---
Dr. Chance notified of pt's left small to medium size pneumo.
--- NOTE | 2020-07-26 12:44 | HMH.PULMPN ---
Internal Medicine - PN: Subj *Date: 07/26/20 *Time: 12:54 Interval history: No acute respiratory events overnight. Exam - Constitutional Constitutional:: Present: comfortable - HENMT Exam HENMT: Present: normocephalic - Eye Exam Eyes:: Present: eyelids normal - Neck Exam Neck:: Present: thyroid normal - Respiratory Exam Respiratory:: Present: crackles - Cardiovascular Exam Cardiac:: Present: S1, S2 - GI Exam GI:: Present: soft, no hepatosplenomegaly - Skin Exam Skin: Present: warm - Extremities Exam Extremities: Present: no cyanosis, no clubbing, edema Assessment and Plan (1) Respiratory failure with hypoxia Status: Acute Qualifiers: Chronicity: acute Qualified Code(s): J96.01 - Acute respiratory failure with hypoxia Category: Medical Code(s): J96.91 - Respiratory failure, unspecified with hypoxia (2) Pneumonia due to COVID-19 virus Status: Acute Category: Medical Code(s): U07.1 - COVID-19; J12.82 - Pneumonia due to coronavirus disease 2019 (3) Anemia Status: Acute Category: Medical Code(s): D64.9 - Anemia, unspecified (4) GI bleed Status: Acute Category: Medical Code(s): K92.2 - Gastrointestinal hemorrhage, unspecified (5) Staphylococcus epidermidis bacteremia Status: Acute Category: Medical Code(s): R78.81 - Bacteremia; B95.7 - Other staphylococcus as the cause of diseases classified elsewhere (6) CAD (coronary artery disease), [place] coronary artery Status: Chronic Qualifiers: [place] vs. transplanted heart: [place] heart Associated angina: without angina Qualified Code(s): I25.10 - Atherosclerotic heart disease of [place] coronary artery without angina pectoris Category: Medical Code(s): I25.10 - Atherosclerotic heart disease of [place] coronary artery without angina pectoris (7) DM2 (diabetes mellitus, type 2) Status: Chronic Qualifiers: Diabetes mellitus technician terminal and repeater insulin use: without alf use Diabetes mellitus complication status: without complication Qualified Code(s): E11.9 - Type 2 diabetes mellitus without complications Category: Medical Code(s): E11.9 - Type 2 diabetes mellitus without complications (8) History of left below knee amputation Status: Chronic Category: Medical Code(s): Z89.512 - Acquired absence of left leg below knee (9) History of osteomyelitis Status: Chronic Category: Medical Code(s): Z87.39 - Personal history of other diseases of the musculoskeletal system and connective tissue (10) Sepsis Status: Acute Qualifiers: Sepsis type: sepsis due to unspecified organism Sepsis acute organ dysfunction status: with acute organ dysfunction Severe sepsis acute organ dysfunction type: acute respiratory failure Acute respiratory failure type: with hypoxia Severe sepsis shock status: with septic shock Qualified Code(s): A41.9 - Sepsis, unspecified organism; R65.21 - Severe sepsis with septic shock; J96.01 - Acute respiratory failure with hypoxia Category: Medical Code(s): A41.9 - Sepsis, unspecified organism (11) Elevated LFTs Status: Acute Category: Medical Code(s): R79.89 - Other specified abnormal findings of blood chemistry - Assessment and plan all Dx Assessment and Plan for all problems:: #COVID-19 pneumonia: #Acute hypoxic respiratory failure requiring mechanical ventilation: 69-year-old no prior respiratory complaints never smoker with recent diagnosis of COVID-19 present with worsening respiratory failure cough and productive phlegm. CT showed bilateral diffuse pulmonary infiltrates. No evidence of acute pulmonary embolism. Patient respiratory status gradually worsened throughout his hospital course with increasing oxygen requirements to BiPAP,. Patient was initially DNR/DNI change his CODE STATUS to full code given his worsening respiratory status and severe respiratory distress patient was eventually intubated on Jul 05, 2020. Patient respiratory
--- NOTE | 2020-07-26 16:00 | PC.NURSE ---
tubefeeds restarted @ 25ml/hr.
[2020-07-26 17:05] LABS: POC Glucose,Bedside 166 (70-110)
[2020-07-26 19:41] LABS: Hemoglobin 8.9 g/dL (14.1-18.0)
[2020-07-26 22:54] LABS: POC Glucose,Bedside 184 (70-110)
[2020-07-27] VITALS (32 sets, daily range): BP systolic 96–133; BP diastolic 54–75; PULSE 70–102; RESP 27–37; TEMP 36.6–37.3; O2SAT 89–98; BMI 26.4
[2020-07-27 05:03] LABS: POC Glucose,Bedside 250 (70-110)
--- NOTE | 2020-07-27 06:00 | XR_ITS ---
PROCEDURE: XR CHEST PORTABLE CLINICAL HISTORY: resp failure Covid19 pneumonia COMPARISON: CR XR CHEST PORTABLE from 07/24/[address] CHEST WO CON from 07/24/2020 CR XR CHEST PORTABLE from 07/25/2020 CR XR CHEST PORTABLE from 07/26/2020 FINDINGS: Endotracheal tube, nasogastric tube, and left subclavian central venous line remain in good position. No change diffuse bilateral pneumonia. No evidence of pneumothorax or pneumomediastinum. No acute bony abnormalities. IMPRESSION: No change in bilateral pneumonia Tubes and lines remain in good position Dictated by: Michele Sheth MD 07/27/2020 06:41 Michele Sheth MD in [facility] 07/27/2020 06:41
[2020-07-27 06:43] LABS: Hematocrit 31.1 % (42.0-52.0); Hemoglobin 9.4 g/dL (14.1-18.0); Mean Corpuscular HGB Conc 30.2 g/dL (31.8-35.4); Mean Corpuscular Volume 92.6 fl (80-94); Red Blood Count 3.36 M/mm3 (4.60-6.20); White Blood Count 10.8 K/mm3 (4.8-10.8)
[2020-07-27 06:44] LABS: Basophils # 0.1 K/mm3 (0-0.2); Basophils % 0.6 % (0.1-2.0); Eosinophils # 0.2 K/mm3 (0.0-0.4); Eosinophils % 1.4 % (0.1-12.0); Lymphocytes # 0.7 K/mm3 (0.7-4.5); Lymphocytes % 6.5 % (10-50); Mean Platelet Volume 9.1 fl (7.4-10.4); Monocytes # 0.6 K/mm3 (0.1-1.0); Monocytes % 5.7 % (1.7-9.3); Neutrophils # 9.2 K/mm3 (1.8-7.8); Neutrophils % 85.8 % (37.0-80.0); Platelet Count 100 K/mm3 (142-424); Red Cell Distribution Width 16.3 % (11.5-17.5)
[2020-07-27 06:52] LABS: Chloride 108 mmol/L (98-107); Potassium 4.4 mmoL/L (3.5-5.1); Sodium 144 mmol/L (136-145)
[2020-07-27 06:54] LABS: Alanine Aminotransferase 180 U/L (12-78); Aspartate Amino Transferase 102 U/L (17-59); Blood Urea Nitrogen 75 mg/dl (9-20); Creatinine Clearance Estimated 49 mL/min (50-200); Estimated Glomerular Filt Rate 35 ml/min (>60); GFR (African American) 43 ML/MIN (>60)
[2020-07-27 06:55] LABS: Albumin Level 2.2 g/dl (3.5-5.0); Albumin/Globulin Ratio 0.8 (1.1-1.8); Alkaline Phosphatase 97 U/L (38-126); Anion Gap 3.4 mEq/L (5-15); Bilirubin,Total 0.5 mg/dl (0.2-1.3); Calcium 7.4 mg/dl (8.4-10.2); Carbon Dioxide 37 mmol/L (22.0-30.0); Globulin 2.8 g/dL (1.3-3.2); Glucose 247 mg/dl (74-100)
[2020-07-27 06:56] LABS: MANUAL DIFFERENTIAL MANUAL DIFFERENTIAL (MANUAL DIFF)
[2020-07-27 07:19] LABS: ABG Base Excess 5.1 mmol/L (-2.4-2.3); ABG HCO3 30.7 mmhg (22.0-26.0); ABG Oxygen Saturation 94 % (90-100); ABG PH 7.35 mmol/L (7.35-7.45); ABG PO2 74.6 mmhg (80-100); ABG TCO2 32.5 mmhg (23-27)
[2020-07-27 07:21] LABS: Allen's Test Acceptable; Oxygen 75 %; PEEP 8; Source Right Radial; Tidal Volume 480; Vent Rate 26
[2020-07-27 07:22] LABS: ABG PCO2 57.3 mmhg (35.0-45.0)
--- NOTE | 2020-07-27 07:55 | PC.NURSE ---
Notified Dr. Chance of CO2 57.3 per ABG result
--- NOTE | 2020-07-27 08:00 | PC.NURSE ---
gastric residual 120mL. Tubefeed rate continues @ 35mL/hr. Goal rate is 46mL/hr. Pt is following commands AEB nodding head yes and no, squeezing my hand with both of his hands, and opening/closing eyes.
[2020-07-27 08:36] LABS: Eosinophils % 1 % (0-3); Hypochromasia 1+; Lymphocytes % 5 % (10-50); Monocytes % 1 % (2-9); Neutrophils % 93 % (42-76); Total Cells Counted 100
[2020-07-27 08:37] LABS: Platelet Estimate Slight Decrease
--- NOTE | 2020-07-27 09:18 | HMH.ACPN2 ---
Internal Medicine - PN: Subj *Date: 07/27/20 *Time: 09:18 Interval history: No new events noted overnight. Pt is more alert today. Exam Vital signs and Labs for Last 24 Hours: Temp Pulse Resp BP Pulse Ox 99.1 F 98 H 26 H 111/66 96 07/27/20 04:00 07/27/20 07:00 07/27/20 07:00 07/27/20 07:00 07/27/20 07:00 Laboratory Results - last 24 hr 07/23/20 16:40: RPR Titer Non reactive 07/25/20 10:58: POC Glucose 219 H 07/25/20 16:56: POC Glucose 223 H 07/26/20 04:45: Total Counted 100, Neutrophils % (Manual) 91 H, Lymphocytes % (Manual) 8 L, Monocytes % (Manual) 1 L, Platelet Estimate Slight decrease, RBC Morphology Normal 07/26/20 04:45: Retic Count (auto) 2.0 07/26/20 09:15: Fibrinogen 451 07/26/20 09:15: D-Dimer 4.46 H 07/26/20 09:52: Blood Type B Positive, Antibody Screen Negative, Crossmatch (AHG) See Detail 07/26/20 11:08: POC Glucose 216 H 07/26/20 16:56: POC Glucose 166 H 07/26/20 19:15: Hgb 8.9 L D, Hct 29.0 L 07/26/20 22:47: POC Glucose 184 H 07/27/20 04:49: POC Glucose 250 H 07/27/20 04:50: WBC 10.8, RBC 3.36 L, Hgb 9.4 L, Hct 31.1 L, MCV 92.6, MCH 28.0, MCHC 30.2 L, RDW 16.3, Plt Count 100 L, MPV 9.1, Neut % (Auto) 85.8 H, Lymph % (Auto) 6.5 L, [place] % (Auto) 5.7, Eos % (Auto) 1.4, Baso % (Auto) 0.6, Neut # (Auto) 9.2 H, Lymph # (Auto) 0.7, [place] # (Auto) 0.6, Eos # (Auto) 0.2, Baso # (Auto) 0.1, Total Counted 100, Neutrophils % (Manual) 93 H, Lymphocytes % (Manual) 5 L, Monocytes % (Manual) 1 L, Eosinophils % (Manual) 1, Platelet Estimate Slight decrease, Hypochromasia 1+ 07/27/20 04:50: Sodium 144, Potassium 4.4, Chloride 108 H, Carbon Dioxide 37 H, Anion Gap 3.4 L, BUN 75 H, Creatinine 1.90 H, Estimated Creat Clear 49, Estimated GFR 35 L, Est GFR ( Amer) 43 L, Glucose 247 H, Calcium 7.4 L, Total Bilirubin 0.5, AST 102 H D, ALT 180 H, Alkaline Phosphatase 97, Total Protein 5.0 L, Albumin 2.2 L, Globulin 2.8, Albumin/Globulin Ratio 0.8 L 07/27/20 06:00: Specimen Source Right radial, O2 % 75, ABG pH 7.35, ABG pCO2 57.3 H, ABG pO2 74.6 L, ABG HCO3 30.7 H, ABG Total CO2 32.5 H, ABG O2 Saturation 94, ABG Base Excess 5.1 H, Michele Test Acceptable, Vent Rate 26, Tidal Volume 480, PEEP 8 Vital Signs - 24 hr 07/26/20 10:00 07/26/20 10:50 07/26/20 12:00 Temperature 99.4 F 98.8 F 99.8 F H Pulse Rate 112 H Pulse Rate [Apical] 101 H 98 H 113 H Respiratory Rate 29 H 28 H 28 H Blood Pressure Blood Pressure [Right Arm] 110/60 108/64 L 121/69 02 Sat by Pulse Oximetry 92 L 95 95 07/26/20 12:05 07/26/20 12:15 07/26/20 12:20 Temperature 99.3 F 99.3 F 99.6 F Pulse Rate 112 H 115 H 114 H Pulse Rate [Apical] Respiratory Rate 24 26 H 26 H Blood Pressure 119/71 134/69 129/68 Blood Pressure [Right Arm] 02 Sat by Pulse Oximetry 96 96 96 07/26/20 12:25 07/26/20 12:40 07/26/20 12:55 Temperature 99.6 F 100.1 F H 99.1 F Pulse Rate 120 H 112 H 117 H Pulse Rate [Apical] Respiratory Rate 26 H 26 H 26 H Blood Pressure 141/72 H 119/63 121/68 Blood Pressure [Right Arm] 02 Sat by Pulse Oximetry 96 94 L 95 07/26/20 13:10 07/26/20 14:10 07/26/20 14:25 Temperature 98.5 F 98.5 F Pulse Rate 116 H 112 H Pulse Rate [Apical] Respiratory Rate 26 H 26 H 27 H Blood Pressure 120/66 114/66 Blood Pressure [Right Arm] 02 Sat by Pulse Oximetry 95 98 98 07/26/20 15:00 07/26/20 15:05 07/26/20 15:10 Temperature 99.6 F 99.6 F 99.0 F Pulse Rate 101 H 100 H 99 H Pulse Rate [Apical] Respiratory Rate 26 H 26 H 26 H Blood Pressure 100/54 L 105/58 L 110/66 Blood Pressure [Right Arm] 02 Sat by Pulse Oximetry 98 99 98 07/26/20 15:15 07/26/20 15:20 07/26/20 15:35 Temperature 99.2 F 98.5 F 98.5 F Pulse Rate 100 H 100 H 101 H Pulse Rate [Apical] Respiratory Rate 26 H 26 H 26 H Blood Pressure 108/68 L 116/65 108/66 L Blood Pressure [Right Arm] 02 Sat by Pulse Oximetry 98 98 98 07/26/20 15:50 07/26/20 16:00 07/26/20 16:05 Temperature 98.4 F 98.4 F Pulse Rate 94 H 96 H 96 H Pulse Rate [Apica
--- NOTE | 2020-07-27 09:18 | HMH.PULMPN ---
Internal Medicine - PN: Subj *Date: 07/27/20 *Time: 09:18 Interval history: No acute respiratory vents overnight. Hemoglobin remained stable status post transfusions. Exam - Constitutional Constitutional:: Present: no acute distress, comfortable - HENMT Exam HENMT: Present: normocephalic, atraumatic - Eye Exam Eyes:: Present: eyelids normal - Neck Exam Neck:: Present: thyroid normal - Respiratory Exam Respiratory:: Present: no respiratory distress, normal respiratory effort, crackles. Absent: accessory muscle use - Cardiovascular Exam Cardiac:: Present: S1, S2 - GI Exam GI:: Present: soft, no hepatosplenomegaly - Skin Exam Skin: Present: warm, no rash - Neurological Exam Neurological: Present: awake - Extremities Exam Extremities: Present: no cyanosis, no clubbing, edema Assessment and Plan (1) Respiratory failure with hypoxia Status: Acute Qualifiers: Qualified Code(s): J96.01 - Acute respiratory failure with hypoxia Category: Medical Code(s): J96.91 - Respiratory failure, unspecified with hypoxia (2) Pneumonia due to COVID-19 virus Status: Acute Category: Medical Code(s): U07.1 - COVID-19; J12.82 - Pneumonia due to coronavirus disease 2019 (3) Anemia Status: Acute Category: Medical Code(s): D64.9 - Anemia, unspecified (4) GI bleed Status: Acute Category: Medical Code(s): K92.2 - Gastrointestinal hemorrhage, unspecified (5) Staphylococcus epidermidis bacteremia Status: Acute Category: Medical Code(s): R78.81 - Bacteremia; B95.7 - Other staphylococcus as the cause of diseases classified elsewhere (6) CAD (coronary artery disease), [place] coronary artery Status: Chronic Qualifiers: Qualified Code(s): I25.10 - Atherosclerotic heart disease of [place] coronary artery without angina pectoris Category: Medical Code(s): I25.10 - Atherosclerotic heart disease of [place] coronary artery without angina pectoris (7) DM2 (diabetes mellitus, type 2) Status: Chronic Qualifiers: Qualified Code(s): E11.9 - Type 2 diabetes mellitus without complications Category: Medical Code(s): E11.9 - Type 2 diabetes mellitus without complications (8) History of left below knee amputation Status: Chronic Category: Medical Code(s): Z89.512 - Acquired absence of left leg below knee (9) History of osteomyelitis Status: Chronic Category: Medical Code(s): Z87.39 - Personal history of other diseases of the musculoskeletal system and connective tissue (10) Sepsis Status: Acute Qualifiers: Qualified Code(s): A41.9 - Sepsis, unspecified organism; R65.21 - Severe sepsis with septic shock; J96.01 - Acute respiratory failure with hypoxia Category: Medical Code(s): A41.9 - Sepsis, unspecified organism (11) Elevated LFTs Status: Acute Category: Medical Code(s): R79.89 - Other specified abnormal findings of blood chemistry - Assessment and plan all Dx Assessment and Plan for all problems:: #COVID-19 pneumonia: #Acute hypoxic respiratory failure requiring mechanical ventilation: 69-year-old no prior respiratory complaints never smoker with recent diagnosis of COVID-19 present with worsening respiratory failure cough and productive phlegm. CT showed bilateral diffuse pulmonary infiltrates. No evidence of acute pulmonary embolism. Patient respiratory status gradually worsened throughout his hospital course with increasing oxygen requirements to BiPAP,. Patient was initially DNR/DNI change his CODE STATUS to full code given his worsening respiratory status and severe respiratory distress patient was eventually intubated on Jul 05, 2020. Patient respiratory status has been gradually improving since admission. Patient received 1 unit of convalescent plasma per repeat D-dimer during hospital course elevated at 8, however repeat lower extremity Doppler negative so opted to continue with prophylactic anticoagulation which was discontinued ow
--- NOTE | 2020-07-27 11:32 | HMH.PTEV ---
Physical Therapy Evaluation Rehab PT IP Evaluation Start: 07/27/20 08:55 Freq: ONCE Status: Active Protocol: Document 07/27/20 11:26 PHORNE (Rec: 07/27/20 11:32 PHORNE [id number]) Subjective/History History History 69 yowm adm to [facility] with COVID PNA. He remains on ventilator at this time and had limited response to any stimuli. Subjective Subjective Pt unable to respond to any questions at this time, appears more sedate currently per RN. Rehab PT IP Eval Objective Appearance Patient Behavior Sedated Difficulty following instructions severe Speech Pattern No Speech Ambulation Patient Able to Ambulate No Balance Ability to Arise Unable Transfers Bed Transfer Ability Total/Dependent (100%) ROM All Extremities PT ROM Status WFL Rehab PT IP prob,goals,plan Problems Date of Evaluation: 07/27/20 PT IP Problems Bed Mobility,Transfers,Balance Rehab Potential Rehab Potential Fair Plan PT Intervention Plan Bed Mobility,Transfers,Balance ,Therapeutic Exercise PT Plan Frequency Daily Duration LOS Discharge Goals Bed Transfer Ability Maximum x 2 (75% assist) Sit to Stand Chair Transfer Ability Maximum x 2 (75% assist) Discharge Plan PT Discharge Plan Pt is currently sedated and on ventilator which limits his ability to participate with complex tasks. He will likely need rehab placement once medically stable and further mobility will be assessed as he is extubated and less sedated. G -code Required No Eval Complexity Eval Charge Codes 69333 - High Complexity PHYSICIAN CERTIFICATION: I certify the specified therapy services for Adam Riley are required, authorized, and reviewed every 30 days.
[2020-07-27 11:36] LABS: POC Glucose,Bedside 218 (70-110)
--- NOTE | 2020-07-27 11:43 | HMH.OTEV ---
OT Inpatient Evaluation Rehab OT IP Evaluation Start: 07/27/20 08:55 Freq: ONCE Status: Complete Protocol: Document 07/27/20 11:[facility] (Rec: 07/27/20 11:43 [facility] [id number]) Rehab OT IP Assessment Subjective History Pt resting in bed on arrival on ventilator. Pt unable to provide any previous functional ability due to being sedated on vent. According to notes, pt was admitted on 06/27/20 due to Covid-19 PNA with worsening symptoms. Pt was intubated on 07/05/20. Pt has a past medical history of CAD, DM type 2, GERD, Hyperlipidemia, BKA L leg, and SONNY. Subjective Oxygen at 92% on arrival and dropped to 84% during prom manual stretching. Rehab OT IP prob,goals,plan Problems Date of Evaluation: 07/27/20 OT IP Problems Bed Mobility,Transfers,Gait, Balance,Self care,Safety Rehab Potential Rehab Potential Good Equipment Needs Assistive Devices Rolling / Wheeled Walker Plan OT intervention Plan Bed Mobility,Transfers,Gait, Balance,Self care,Safety, Therapeutic Exercise OT Plan Frequency Daily Duration LOS Discharge Goals Bed Mobility Ability Assistance x1 Sit to Stand Chair Transfer Ability Maximum x 1 (75% assist) Chair Transfer Ability Maximum x 1 (75% assist) Chair Transfer Technique Sit to/from Ambulatory Chair Transfer Assistive Devices Rolling Walker Feeding Ability Independent Lower Body Dressing Ability Assistance X1 Upper Body Dressing Ability Assistance X1 Bathing Ability Assistance x1 Performing Toilet Hygiene Ability Assistance X1 Overall Commode/Toilet Transfer Ability Assistance x1 Commode/Toilet Transfer Technique Sit to/from Ambulatory Discharge Plan OT Discharge Plan Pt would benefit best from short term rehab following hospital stay in order to increase overall functional ability. Eval Complexity Eval Charge Codes 64974 - Moderate Complexity G Codes G -code Required No PHYSICIAN CERTIFICATION: I certify the specified therapy services for Adam Riley are required, authorized, and reviewed every
--- NOTE | 2020-07-27 12:00 | PC.NURSE ---
gastric residual 20mL. Tubefeed rate increased to 46mL/hr (goal rate).
--- NOTE | 2020-07-27 12:43 | DIET.NUTRFU ---
Addendum entered by Chela Mccabe 08/06/20 11:36: NPO for PEG and PICC today. No change status GI bleed, H&H decreased and pt transfused yesterday. No BM recorded since 08/01, BG avg. 190. Weight down 6# past 48h. Nutritional care plan is for slow and low advancement to previous goal rate of 46ml/h with PEG as tolerated. Will reevaluate raising goal rate pending good toleration PEG feeds and hematologic stability. Continuing to monitor, follow further care plans, and alter regimen/nutritional care plan as indicated. Addendum entered by Chela Mccabe 08/03/20 16:26: Pt with continued low H&H, continued elevated BUN. Other nutrition related labs wnl, weight stable, BG. avg 240. No recorded BMs past 48h. Continue to be wary to increase rate rt GI bleed. Pt is within 75% of needs which is the recommended goal for critical care. Continuing to monitor. Addendum entered by Chela Mccabe 08/01/20 12:57: Tube feeds restarted s/p trach 17:00 07/31, currently at goal rate and tolerating well. Pt has had 3 BMs green and black in color past 48h. Renal function improved, BG avg. 240, weight stable. He continues on IVF with minimal water flushes. Continuing to monitor, will advance rate pending toleration at current goal rate 24h, continued stability GI bleed, and nutrition related labs wnl. Addendum entered by Chela Mccabe 07/30/20 16:42: Tolerating feeds, NPO today for trach. Weight stable, BG avg. 255, renal function improving. Pt had a BM yesterday green in color. He continues on IVF with D5, continuing to monitor and alter fluids as needed. As feedings were stopped again today, will hold off on raising rate until pt has advanced back to previous goal rate of 46ml/h and tolerated well 24h. Original Note: Tube feeds restarted (post procedures) yesterday evening, tolerating well at current rate of 35ml/h with goal rate of 46ml/h. H&H drop/possible recurrent GI bleed noted. Will continue tube feedings at low rate, monitoring tolerance. Nutritional care plan to cautiously advance goal rate and/or add additional protein pending good toleration at current goal rate and stable renal function over next 48h. Weight up 7kg, no BM since 2- 3 total BMs t/o stay of 29 days, BG avg. 216, nutrition related labs wnl. He continues on IVF with D5 at 100ml/h- continue minimal water flushes of 30-60ml for irrigation/GRV checks. Regimen at current goal rate of 46ml/h provides 1656kcal(20kcal/kg), 71g protein(0.8g/kg), 867ml free water.
[2020-07-27 17:00] LABS: POC Glucose,Bedside 214 (70-110)
[2020-07-27 19:03] LABS: HSV-1 DNA Negative (Negative)
[2020-07-28] VITALS (35 sets, daily range): BP systolic 93–176; BP diastolic 53–83; PULSE 75–105; RESP 24–32; TEMP 36.6–37.3; O2SAT 89–96; BMI 25.9
[2020-07-28 04:19] LABS: HSV-2 DNA Negative (Negative)
[2020-07-28 04:55] LABS: POC Glucose,Bedside 192 (70-110)
--- NOTE | 2020-07-28 05:19 | PC.NURSE ---
PATIENT HAS FOLLOWED COMMANDS THROUGHOUT SHIFT AND SHOOK HEAD YES AND NO IN RESPONSE TO QUESTIONS. TOLERATED TUBE FEEDING WITHOUT DIFFICULTY, CORREA DRAINING CLEAR YELLOW URINE. BREATH SOUNDS REMAIN DIMINISHED THROUGHOUT ALL JOYNER. STARTED SHIFT ON 65% FIO2,SATS BEGAN DROPPING AND REQUIRED FIO2 TO BE TITRATED BACK UP TO 75%. SATS HAVE NOW BEEN SUSTAINING GREATER THAN 90%. SURFBOARD MAKER HAS SHOWN SR WITHOUT ECTOPY. PATIENT HAD LARGE TARRY BLACK STOOL.
--- NOTE | 2020-07-28 06:00 | XR_ITS ---
PROCEDURE: XR CHEST PORTABLE CLINICAL HISTORY: resp failure Covid19 pneumonia COMPARISON: CT CT CHEST WO CON from 07/24/2020 CR XR CHEST PORTABLE from 07/25/2020 CR XR CHEST PORTABLE from 07/26/2020 CR XR CHEST PORTABLE from 07/27/2020 FINDINGS: 0507 hours Endotracheal tube, orogastric tube, and left subclavian central venous line are all in good position. Diffuse bilateral pneumonia once again noted and appears worse in the right lower lobe. No evidence of pneumothorax or pneumomediastinum. IMPRESSION: Tubes and lines in good position. Diffuse bilateral pneumonia slightly worse in the right lower lobe Dictated by: Michele Sheth MD 07/28/2020 08:13 Michele Sheth MD in OV 07/28/2020 08:13
[2020-07-28 07:07] LABS: ABG Base Excess 3.5 mmol/L (-2.4-2.3); ABG HCO3 29.2 mmhg (22.0-26.0); ABG Oxygen Saturation 90 % (90-100); ABG PH 7.34 mmol/L (7.35-7.45); ABG PO2 59.1 mmhg (80-100); ABG TCO2 30.9 mmhg (23-27)
[2020-07-28 07:08] LABS: Oxygen 75 %; PEEP 85; Tidal Volume 480; Vent Rate 26
[2020-07-28 07:09] LABS: ABG PCO2 54.9 mmhg (35.0-45.0); Allen's Test UNABLE; Source Right Radial
--- NOTE | 2020-07-28 09:06 | HMH.ACPN2 ---
Internal Medicine - PN: Subj *Date: 07/28/20 *Time: 09:27 Interval history: No new events noted overnight. Exam Vital signs and Labs for Last 24 Hours: Temp Pulse Resp BP Pulse Ox 97.8 F 94 H 24 128/70 95 07/28/20 07:59 07/28/20 07:59 07/28/20 07:59 07/28/20 07:59 07/28/20 07:59 Laboratory Results - last 24 hr 07/24/20 14:45: HSV I DNA Quant (PCR) Negative, HSV II DNA Quant (PCR) Negative 07/27/20 11:29: POC Glucose 218 H 07/27/20 16:35: POC Glucose 214 H 07/28/20 04:48: POC Glucose 192 H 07/28/20 07:00: Specimen Source Right radial, O2 % 75, ABG pH 7.34 L, ABG pCO2 54.9 H, ABG pO2 59.1 L, ABG HCO3 29.2 H, ABG Total CO2 30.9 H, ABG O2 Saturation 90, ABG Base Excess 3.5 H, Michele Test Unable, Vent Rate 26, Tidal Volume 480, PEEP 85 Vital Signs - 24 hr 07/27/20 10:00 07/27/20 10:35 07/27/20 11:00 Temperature 98.0 F Pulse Rate Pulse Rate [Apical] 81 75 Respiratory Rate 27 H 27 H 28 H Blood Pressure [Right Arm] 103/62 L 97/56 L 02 Sat by Pulse Oximetry 92 L 95 98 07/27/20 12:00 07/27/20 12:03 07/27/20 13:00 Temperature 97.9 F Pulse Rate 77 82 Pulse Rate [Apical] 80 91 H Respiratory Rate 27 H 31 H Blood Pressure [Right Arm] 96/54 L 117/62 02 Sat by Pulse Oximetry 96 93 L 07/27/20 14:00 07/27/20 14:14 07/27/20 15:00 Temperature 98.1 F Pulse Rate Pulse Rate [Apical] 92 H 85 Respiratory Rate 34 H 28 H 28 H Blood Pressure [Right Arm] 124/67 112/67 02 Sat by Pulse Oximetry 90 L 93 L 93 L 07/27/20 16:00 07/27/20 17:00 07/27/20 18:00 Temperature 98.2 F Pulse Rate 91 H Pulse Rate [Apical] 93 H 86 91 H Respiratory Rate 29 H 31 H 31 H Blood Pressure [Right Arm] 115/72 122/63 133/71 02 Sat by Pulse Oximetry 92 L 94 L 92 L 07/27/20 18:18 07/27/20 18:58 07/27/20 19:57 Temperature 99 F Pulse Rate Pulse Rate [Apical] 70 97 H Respiratory Rate 31 H 32 H 29 H Blood Pressure [Right Arm] 127/62 132/73 02 Sat by Pulse Oximetry 94 L 91 L 07/27/20 20:00 07/27/20 20:35 07/27/20 20:59 Temperature Pulse Rate 95 H 74 Pulse Rate [Apical] 75 Respiratory Rate 31 H Blood Pressure [Right Arm] 111/60 02 Sat by Pulse Oximetry 89 L 07/27/20 21:33 07/27/20 22:00 07/27/20 23:00 Temperature 99.1 F Pulse Rate Pulse Rate [Apical] 76 77 Respiratory Rate 30 H 31 H 30 H Blood Pressure [Right Arm] 109/62 L 119/61 02 Sat by Pulse Oximetry 91 L 93 L 95 07/28/20 00:00 07/28/20 00:59 07/28/20 01:14 Temperature Pulse Rate 80 Pulse Rate [Apical] 84 81 Respiratory Rate 30 H 30 H 29 H Blood Pressure [Right Arm] 128/61 114/62 02 Sat by Pulse Oximetry 95 95 92 L 07/28/20 01:51 07/28/20 01:58 07/28/20 02:59 Temperature 99.2 F Pulse Rate Pulse Rate [Apical] 89 90 Respiratory Rate 31 H 31 H 29 H Blood Pressure [Right Arm] 129/71 131/71 02 Sat by Pulse Oximetry 94 L 94 L 07/28/20 03:58 07/28/20 04:00 07/28/20 05:00 Temperature Pulse Rate 88 Pulse Rate [Apical] 87 96 H Respiratory Rate 30 H 30 H Blood Pressure [Right Arm] 134/67 133/77 02 Sat by Pulse Oximetry 92 L 94 L 07/28/20 06:00 07/28/20 06:02 07/28/20 06:56 Temperature Pulse Rate 95 H Pulse Rate [Apical] 96 H 95 H Respiratory Rate 32 H 30 H Blood Pressure [Right Arm] 133/76 128/70 02 Sat by Pulse Oximetry 93 L 94 L 94 L 07/28/20 07:41 07/28/20 07:54 07/28/20 07:59 Temperature 97.8 F Pulse Rate Pulse Rate [Apical] 90 94 H Respiratory Rate 26 H 24 Blood Pressure [Right Arm] 128/70 128/70 02 Sat by Pulse Oximetry 93 L 96 95 I & O for Last 24 hours: Intake & Output 07/25/20 07/26/20 07/27/20 07/28/20 23:59 23:59 23:59 23:59 Intake Total 3745 / 3745 3746 / 3746 3954 / 4220 1262 / 1262 Output Total 1935 / 1935 2145 / 2145 2395 / 2480 721 / 721 Balance 1810 / 1810 1601 / 1601 1559 / 1740 541 / 541 Weight 192 lb 1 oz 191 lb 1.6 oz 206 lb 8 oz 201 lb 14.4 oz Microbiology Reports for the Last 24 Hours: Microbiology 02
[2020-07-28 12:00] LABS: POC Glucose,Bedside 240 (70-110)
--- NOTE | 2020-07-28 12:03 | PC.NURSE ---
PT @ bedside doing exercises w/ pt.
--- NOTE | 2020-07-28 16:39 | PC.NURSE ---
Remains on [facility] vent AC 26, 480, 8, 75%, tolerating well. Responsive to voice, follows commands and shakes head to yes/no questions appropriately. PERRLA. Industrial Order Clerk weak, more so on left side. Lungs diminished throughout. HR regular. Generalized edema noted. Extremities elevated w/ pillows. Abdomen soft, non-tender w/ active BS. Incontinent of stool x1, small green in color. OGT @ 62 cm, Pulmocare at goal rate, tolerating well. Goncalves cath to drain @ bedside w/ clear yellow urine noted. Goncalves care performed. RLE heels floating. Pt was bathed and linens changed. Unstagable ulcer to coccyx cleaned and pat dry, dressing was changed and dated. Mod amount of serosang drainage noted to dressing. Blister adjacent to coccyx ulcer cleaned and telfa/tegaderm put in place. Pt has been turned and repositioned Q2H. Oral care performed as well as suctioning. Pt tolerating activity well w/ repositioning. It was attempted by RT to wean FIO2 from 75%, was decreased to 65% but sat would not increase higher than 88%. FIO2 placed back on 75% @ 1530.
[2020-07-28 17:22] LABS: POC Glucose,Bedside 314 (70-110)
[2020-07-28 22:26] LABS: POC Glucose,Bedside 221 (70-110)
[2020-07-29] VITALS (33 sets, daily range): BP systolic 96–139; BP diastolic 54–82; PULSE 66–107; RESP 27–33; TEMP 36.2–37.3; O2SAT 89–97; BMI 26.0
[2020-07-29 05:25] LABS: POC Glucose,Bedside 250 (70-110)
[2020-07-29 06:13] LABS: Basophils % 0.3 % (0.1-2.0); Eosinophils # 0.1 K/mm3 (0.0-0.4); Eosinophils % 0.6 % (0.1-12.0); Hematocrit 31.4 % (42.0-52.0); Lymphocytes # 0.3 K/mm3 (0.7-4.5); Lymphocytes % 2.7 % (10-50); Mean Corpuscular HGB Conc 31.9 g/dL (31.8-35.4); Mean Corpuscular Hemoglobin 29.5 pg (27.0-31.2); Mean Corpuscular Volume 92.7 fl (80-94); Mean Platelet Volume 9.6 fl (7.4-10.4); Monocytes # 0.7 K/mm3 (0.1-1.0); Monocytes % 5.8 % (1.7-9.3); Neutrophils # 11.2 K/mm3 (1.8-7.8); Neutrophils % 90.6 % (37.0-80.0); Platelet Count 122 K/mm3 (142-424); Red Blood Count 3.38 M/mm3 (4.60-6.20); Red Cell Distribution Width 15.6 % (11.5-17.5); White Blood Count 12.4 K/mm3 (4.8-10.8)
[2020-07-29 06:18] LABS: MANUAL DIFFERENTIAL MANUAL DIFFERENTIAL (MANUAL DIFF)
[2020-07-29 06:34] LABS: Alanine Aminotransferase 162 U/L (12-78); Albumin Level 2.2 g/dl (3.5-5.0); Albumin/Globulin Ratio 0.7 (1.1-1.8); Alkaline Phosphatase 130 U/L (38-126); Anion Gap 5.6 mEq/L (5-15); Aspartate Amino Transferase 68 U/L (17-59); Bilirubin,Total 0.3 mg/dl (0.2-1.3); Blood Urea Nitrogen 57 mg/dl (9-20); Calcium 7.6 mg/dl (8.4-10.2); Carbon Dioxide 35 mmol/L (22.0-30.0); Chloride 106 mmol/L (98-107); Creatinine Clearance Estimated 61 mL/min (50-200); Estimated Glomerular Filt Rate 47 ml/min (>60); GFR (African American) 56 ML/MIN (>60); Globulin 3.3 g/dL (1.3-3.2); Glucose 255 mg/dl (74-100); Potassium 4.6 mmoL/L (3.5-5.1); Sodium 142 mmol/L (136-145); Total Protein,Serum 5.5 g/dl (6.3-8.2)
[2020-07-29 07:07] LABS: Hypochromasia 1+; Lymphocytes % 8 % (10-50); Neutrophils % 86 % (42-76); Platelet Estimate Slight Decrease; Total Cells Counted 100
[2020-07-29 07:19] LABS: ABG Base Excess 2.5 mmol/L (-2.4-2.3); ABG HCO3 28.5 mmhg (22.0-26.0); ABG Oxygen Saturation 92 % (90-100); ABG PH 7.32 mmol/L (7.35-7.45); ABG PO2 64.3 mmhg (80-100); ABG TCO2 30.3 mmhg (23-27); Oxygen 75 %; Tidal Volume 480; Vent Rate 26
[2020-07-29 07:20] LABS: ABG PCO2 56.4 mmhg (35.0-45.0); Allen's Test Patient Unable; PEEP 8; Source Right Radial
--- NOTE | 2020-07-29 08:10 | HMH.ACPN2 ---
Internal Medicine - PN: Subj *Date: 07/29/20 *Time: 09:00 Interval history: No new issues noted overnight. Exam Vital signs and Labs for Last 24 Hours: Temp Pulse Resp BP Pulse Ox 98.9 F 101 H 30 H 135/74 93 L 07/29/20 02:56 07/29/20 07:57 07/29/20 07:57 07/29/20 07:57 07/29/20 07:57 Laboratory Results - last 24 hr 07/28/20 10:29: POC Glucose 240 H 07/28/20 16:02: POC Glucose 314 H* 07/28/20 22:18: POC Glucose 221 H 07/29/20 05:16: POC Glucose 250 H 07/29/20 05:20: WBC 12.4 H, RBC 3.38 L, Hgb 10.0 L, Hct 31.4 L, MCV 92.7, MCH 29.5, MCHC 31.9, RDW 15.6, Plt Count 122 L, MPV 9.6, Neut % (Auto) 90.6 H, Lymph % (Auto) 2.7 L, [place] % (Auto) 5.8, Eos % (Auto) 0.6, Baso % (Auto) 0.3, Neut # (Auto) 11.2 H, Lymph # (Auto) 0.3 L, [place] # (Auto) 0.7, Eos # (Auto) 0.1, Baso # (Auto) 0.0, Total Counted 100, Neutrophils % (Manual) 86 H, Band Neutrophils % 6.0, Lymphocytes % (Manual) 8 L, Platelet Estimate Slight decrease, Hypochromasia 1+ 07/29/20 05:20: Sodium 142, Potassium 4.6, Chloride 106, Carbon Dioxide 35 H, Anion Gap 5.6, BUN 57 H, Creatinine 1.50 H D, Estimated Creat Clear 61, Estimated GFR 47 L, Est GFR ( Amer) 56 L D, Glucose 255 H, Calcium 7.6 L, Total Bilirubin 0.3, AST 68 H D, ALT 162 H, Alkaline Phosphatase 130 H, Total Protein 5.5 L, Albumin 2.2 L, Globulin 3.3 H, Albumin/Globulin Ratio 0.7 L 07/29/20 07:00: Specimen Source Right radial, O2 % 75, ABG pH 7.32 L, ABG pCO2 56.4 H, ABG pO2 64.3 L, ABG HCO3 28.5 H, ABG Total CO2 30.3 H, ABG O2 Saturation 92, ABG Base Excess 2.5 H, Michele Test Patient unable, Vent Rate 26, Tidal Volume 480, PEEP 8 Vital Signs - 24 hr 07/28/20 10:00 07/28/20 10:11 07/28/20 10:57 Temperature 98.0 F Pulse Rate Pulse Rate [Apical] 77 78 Respiratory Rate 26 H 31 H 26 H Blood Pressure [Right Arm] 103/53 L 116/61 02 Sat by Pulse Oximetry 93 L 94 L 93 L 07/28/20 12:00 07/28/20 13:00 07/28/20 14:00 Temperature Pulse Rate 80 Pulse Rate [Apical] 92 H 89 91 H Respiratory Rate 26 H 26 H 26 H Blood Pressure [Right Arm] 120/63 146/83 H 116/71 02 Sat by Pulse Oximetry 92 L 93 L 90 L 07/28/20 14:09 07/28/20 14:59 07/28/20 15:53 Temperature 97.9 F Pulse Rate 89 Pulse Rate [Apical] 94 H 92 H Respiratory Rate 28 H 26 H 24 Blood Pressure [Right Arm] 141/73 H 153/70 H 02 Sat by Pulse Oximetry 91 L 89 L 92 L 07/28/20 16:00 07/28/20 17:00 07/28/20 18:00 Temperature Pulse Rate 87 Pulse Rate [Apical] 87 98 H Respiratory Rate 28 H 28 H 29 H Blood Pressure [Right Arm] 153/76 H 166/77 H 02 Sat by Pulse Oximetry 94 L 95 93 L 07/28/20 18:11 07/28/20 18:52 07/28/20 20:00 Temperature 99.1 F Pulse Rate 92 H Pulse Rate [Apical] 105 H 103 H Respiratory Rate 30 H 28 H 28 H Blood Pressure [Right Arm] 176/76 H 121/69 02 Sat by Pulse Oximetry 93 L 92 L 93 L 07/28/20 21:00 07/28/20 22:00 07/28/20 22:06 Temperature Pulse Rate Pulse Rate [Apical] 75 81 Respiratory Rate 28 H 30 H 29 H Blood Pressure [Right Arm] 94/58 L 93/55 L 02 Sat by Pulse Oximetry 95 94 L 95 07/28/20 23:00 07/29/20 00:00 07/29/20 01:00 Temperature 99.2 F Pulse Rate 94 H Pulse Rate [Apical] 81 93 H 98 H Respiratory Rate 31 H 31 H 30 H Blood Pressure [Right Arm] 115/62 122/69 122/70 02 Sat by Pulse Oximetry 94 L 92 L 91 L 07/29/20 01:56 07/29/20 02:00 07/29/20 02:56 Temperature 98.9 F Pulse Rate Pulse Rate [Apical] 84 92 H Respiratory Rate 33 H 31 H 28 H Blood Pressure [Right Arm] 114/64 118/66 02 Sat by Pulse Oximetry 92 L 91 L 92 L 07/29/20 03:56 07/29/20 03:57 07/29/20 05:00 Temperature Pulse Rate 95 H Pulse Rate [Apical] 93 H 103 H Respiratory Rate 28 H 32 H Blood Pressure [Right Arm] 124/73 133/75 02 Sat by Pulse Oximetry 92 L 89 L 07/29/20 05:30 07/29/20 06:00 07/29/20 06:56 Temperature Pulse Rate 99 H Pulse Rate [Apical] 104 H 105 H Respiratory Rate 31 H 30 H 30 H Blood Pressure [Right Arm] 139/78 134/74 02 Sat
[2020-07-29 10:39] LABS: POC Glucose,Bedside 216 (70-110)
[2020-07-29 16:29] LABS: POC Glucose,Bedside 213 (70-110)
--- NOTE | 2020-07-29 17:05 | PC.NURSE ---
No acute changes this shift. Remains on [facility] vent AC 26, 480, 8, 75%, tolerating well. Opens eyes to voice. PERRLA. Lungs diminished in bilat bases. HR regular. Generalized edema noted. Extremities elevated w/ pillows, ROM performed on RLE. Abdomen soft, non-tender w/ active BS. No BM this shift. OGT @ 62 cm, Pulmocare remains at goal rate, no issues this shift. Goncalves cath to drain @ bedside w/ clear yellow urine noted. Goncalves care performed Qshift. RLE propped w/ pillow. Unstagagable ulcer to coccyx and blister adjacent to coccyx c/d/i. Pt has been turned and repositioned Q2H. Oral care performed as well as suctioning. Secretions minimal this shift. Pt remains afebrile. Orders for antibiotics placed per Dr. Chance this AM. VSS
[2020-07-29 23:16] LABS: POC Glucose,Bedside 255 (70-110)
[2020-07-30] VITALS (33 sets, daily range): BP systolic 86–137; BP diastolic 44–82; PULSE 71–950; RESP 20–34; TEMP 36.6–37.2; O2SAT 81–97; BMI 25.8
[2020-07-30 04:16] LABS: Anion Gap 4.7 mEq/L (5-15); Blood Urea Nitrogen 53 mg/dl (9-20); Calcium 7.5 mg/dl (8.4-10.2); Carbon Dioxide 34 mmol/L (22.0-30.0); Chloride 105 mmol/L (98-107); Creatinine Clearance Estimated 71 mL/min (50-200); Estimated Glomerular Filt Rate 55 ml/min (>60); GFR (African American) 66 ML/MIN (>60); Glucose 326 mg/dl (74-100); Potassium 4.7 mmoL/L (3.5-5.1); Sodium 139 mmol/L (136-145)
[2020-07-30 04:26] LABS: Basophils % 0.3 % (0.1-2.0); Eosinophils # 0.1 K/mm3 (0.0-0.4); Eosinophils % 0.7 % (0.1-12.0); Hematocrit 31.4 % (42.0-52.0); Hemoglobin 10.1 g/dL (14.1-18.0); Lymphocytes # 0.4 K/mm3 (0.7-4.5); Lymphocytes % 3.1 % (10-50); Mean Corpuscular HGB Conc 32.1 g/dL (31.8-35.4); Mean Corpuscular Hemoglobin 29.3 pg (27.0-31.2); Mean Corpuscular Volume 91.3 fl (80-94); Mean Platelet Volume 9.3 fl (7.4-10.4); Monocytes # 0.7 K/mm3 (0.1-1.0); Monocytes % 4.8 % (1.7-9.3); Neutrophils # 12.8 K/mm3 (1.8-7.8); Neutrophils % 91.1 % (37.0-80.0); Platelet Count 159 K/mm3 (142-424); Red Blood Count 3.43 M/mm3 (4.60-6.20); Red Cell Distribution Width 15.2 % (11.5-17.5)
[2020-07-30 04:30] LABS: MANUAL DIFFERENTIAL MANUAL DIFFERENTIAL (MANUAL DIFF)
[2020-07-30 05:17] LABS: Lymphocytes % 1 % (10-50); Monocytes % 1 % (2-9); Neutrophils % 88 % (42-76); Platelet Estimate Normal; RBC Morphology Normal; Rouleaux 1+; Total Cells Counted 100
[2020-07-30 05:23] LABS: POC Glucose,Bedside 251 (70-110)
--- NOTE | 2020-07-30 06:00 | XR_ITS ---
PROCEDURE: XR CHEST PORTABLE CLINICAL HISTORY: resp failure Follow-up tubes and lines COMPARISON: CT CT CHEST WO CON from 07/24/2020 CR XR CHEST PORTABLE from 07/26/2020 CR XR CHEST PORTABLE from 07/27/2020 CR XR CHEST PORTABLE from 07/28/2020 CR XR CHEST PORTABLE from 07/30/2020 FINDINGS: 5:26 a.m.. Endotracheal tube tip is in good position at the T4-T5 level. Left subclavian central venous line tip in good position at the SVC. Orogastric tube tip not visible on the study but below the GE junction. There is diffuse bilateral airspace disease consistent with pneumonia. This is not significantly changed. No evidence of pneumothorax or pneumomediastinum. IMPRESSION: Tubes and lines in good position with no change in the diffuse bilateral pneumonia Dictated by: Michele Sheth MD 07/30/2020 11:22 Michele Sheth MD in [place] 07/30/2020 11:22
[2020-07-30 07:22] LABS: ABG HCO3 29.9 mmhg (22.0-26.0); ABG Oxygen Saturation 95 % (90-100); ABG PH 7.27 mmol/L (7.35-7.45); ABG PO2 78.1 mmhg (80-100)
[2020-07-30 07:28] LABS: Oxygen 75 %; Tidal Volume 480; Vent Rate 26
[2020-07-30 07:29] LABS: Allen's Test Patient Unable; PEEP 8; Source Right Radial
--- NOTE | 2020-07-30 08:36 | XR_ITS ---
PROCEDURE: XR CHEST PORTABLE CLINICAL HISTORY: PLACEMENT OF ET TUBE ET tube placement evaluation, diffuse pneumonia follow-up COMPARISON: CT CT CHEST WO CON from 07/24/2020 CR XR CHEST PORTABLE from 07/26/2020 CR XR CHEST PORTABLE from 07/27/2020 CR XR CHEST PORTABLE from 07/28/2020 FINDINGS: 8:47 a.m. The endotracheal tube tip is in good position 5 cm above the pj at the T4 level. Left subclavian central venous line and orogastric tube are also in good position. Diffuse bilateral pneumonia once again noted. This appears somewhat worse in the left upper and left lower lobe and probably unchanged in the right lower lobe. No evidence of pneumothorax or pneumomediastinum. IMPRESSION: 1. Endotracheal tube, orogastric tube, and left subclavian central venous line remain in good position 2. Bilateral pneumonia slightly worse on the left Dictated by: Michele Sheth MD 07/30/2020 09:56 Michele Sheth MD in [place] 07/30/2020 09:56
--- NOTE | 2020-07-30 09:01 | HMH.PHACONS ---
- Pharmacy Consult Date: 07/30/20 Time: 09:01 Referring provider: DR. HAMMOND Reason for Consult:: VANCOMYCIN DOSING Allergies and ADEs:: Allergies Allergy/AdvReac Type Severity Reaction Status Date / Time ceftriaxone [From Rocephin] Allergy Mild Verified 05/24/20 09:28 Home Medications:: Home Medications Medication Instructions Recorded Confirmed Type metformin 1,000 mg tablet 1,000 mg PO BID 04/08/18 06/28/20 History pantoprazole 40 mg tablet,delayed 40 mg PO DAILY 04/08/18 06/28/20 History release tamsulosin 0.4 mg capsule 0.4 mg PO DAILY 04/08/18 06/28/20 History dapagliflozin 10 mg tablet 10 mg PO DAILY 30 Days #30 tab 01/14/19 06/28/20 History Clopidogrel Bisulfate [Plavix] 75 mg PO DAILY 06/27/20 06/28/20 History Losartan Potassium [Cozaar 50mg 50 mg PO DAILY 06/27/20 06/28/20 History Tablets] Metoprolol Succinate [Metoprolol 25 mg PO DAILY 06/27/20 06/27/20 History Succinate 25mg Tablet*] Aspirin [Aspirin 81mg chewable 81 mg PO DAILY 06/28/20 06/28/20 History tab] Azithromycin 250 mg PO DAILY 06/28/20 06/28/20 History Ketorolac Tromethamine 1 drp EYE-RIGHT BID 06/28/20 06/28/20 History Prednisolone Acetate/Pf 1 drop OP BID 06/28/20 06/28/20 History [Prednisolone Acet 1% Eye Drop] Atorvastatin Calcium [Lipitor 40mg 40 mg PO DAILY 06/29/20 06/29/20 History Tab] Multivitamin 1 each PO DAILY 06/29/20 06/29/20 History Height: 1.88 m Weight: 91.308 kg Laboratory Results:: Laboratory Results - last 24 hr 07/29/20 10:29: POC Glucose 216 H 07/29/20 16:19: POC Glucose 213 H 07/29/20 23:05: POC Glucose 255 H 07/30/20 03:40: WBC 14.0 H, RBC 3.43 L, Hgb 10.1 L, Hct 31.4 L, MCV 91.3, MCH 29.3, MCHC 32.1, RDW 15.2, Plt Count 159 D, MPV 9.3, Neut % (Auto) 91.1 H, Lymph % (Auto) 3.1 L, [place] % (Auto) 4.8, Eos % (Auto) 0.7, Baso % (Auto) 0.3, Neut # (Auto) 12.8 H, Lymph # (Auto) 0.4 L, [place] # (Auto) 0.7, Eos # (Auto) 0.1, Baso # (Auto) 0.0, Total Counted 100, Neutrophils % (Manual) 88 H, Band Neutrophils % 10.0 H, Lymphocytes % (Manual) 1 L, Monocytes % (Manual) 1 L, Platelet Estimate Normal, RBC Morphology Normal, [place] 1+ 07/30/20 03:40: Sodium 139, Potassium 4.7, Chloride 105, Carbon Dioxide 34 H, Anion Gap 4.7 L, BUN 53 H, Creatinine 1.30 H, Estimated Creat Clear 71, Estimated GFR 55 L, Est GFR ( Amer) 66, Glucose 326 H D, Calcium 7.5 L 07/30/20 05:15: POC Glucose 251 H 07/30/20 06:00: Specimen Source Right radial, O2 % 75, ABG pH 7.27 L, ABG pCO2 67.0 H, ABG pO2 78.1 L, ABG HCO3 29.9 H, ABG Total CO2 32.0 H, ABG O2 Saturation 95, ABG Base Excess 3.0 H, Michele Test Patient unable, Vent Rate 26, Tidal Volume 480, PEEP 8 Medical History: Reports:: Coronary Artery Disease (Stent placement March 2018.), Diabetes Mellitus Type 2, Gastroesophageal Reflux Disease(GERD), Hyperlipidemia, Hypertension Denies:: Cancer, Diabetes Mellitus Type 1, MRSA, Pulmonary Embolism Assessment and Plan (1) Respiratory failure with hypoxia Status: Acute Qualifiers: Chronicity: acute Qualified Code(s): J96.01 - Acute respiratory failure with hypoxia Category: Medical Code(s): J96.91 - Respiratory failure, unspecified with hypoxia (2) Pneumonia due to COVID-19 virus Status: Acute Category: Medical Code(s): U07.1 - COVID-19; J12.82 - Pneumonia due to coronavirus disease 2019 (3) Anemia Status: Acute Category: Medical Code(s): D64.9 - Anemia, unspecified (4) GI bleed Status: Acute Category: Medical Code(s): K92.2 - Gastrointestinal hemorrhage, unspecified (5) Staphylococcus epidermidis bacteremia Status: Acute Category: Medical Code(s): R78.81 - Bacteremia; B95.7 - Other staphylococcus as the cause of diseases classified elsewhere (6) CAD (coronary artery disease), [place] coronary artery Status: Chronic Qualifiers: [place] vs. transplanted heart: [place] heart Associated angina: without angina Qualified Code(s): I25.10 - Atherosclerotic heart disease
--- NOTE | 2020-07-30 09:04 | HMH.ACPN2 ---
Internal Medicine - PN: Subj *Date: 07/30/20 *Time: 09:04 Interval history: No new events noted overnight. Pt NPO for trach today. Exam Vital signs and Labs for Last 24 Hours: Temp Pulse Resp BP Pulse Ox 99 F 118 H 29 H 125/78 94 L 07/30/20 03:57 07/30/20 07:38 07/30/20 07:38 07/30/20 06:00 07/30/20 07:38 Laboratory Results - last 24 hr 07/29/20 10:29: POC Glucose 216 H 07/29/20 16:19: POC Glucose 213 H 07/29/20 23:05: POC Glucose 255 H 07/30/20 03:40: WBC 14.0 H, RBC 3.43 L, Hgb 10.1 L, Hct 31.4 L, MCV 91.3, MCH 29.3, MCHC 32.1, RDW 15.2, Plt Count 159 D, MPV 9.3, Neut % (Auto) 91.1 H, Lymph % (Auto) 3.1 L, [place] % (Auto) 4.8, Eos % (Auto) 0.7, Baso % (Auto) 0.3, Neut # (Auto) 12.8 H, Lymph # (Auto) 0.4 L, [place] # (Auto) 0.7, Eos # (Auto) 0.1, Baso # (Auto) 0.0, Total Counted 100, Neutrophils % (Manual) 88 H, Band Neutrophils % 10.0 H, Lymphocytes % (Manual) 1 L, Monocytes % (Manual) 1 L, Platelet Estimate Normal, RBC Morphology Normal, [place] 1+ 07/30/20 03:40: Sodium 139, Potassium 4.7, Chloride 105, Carbon Dioxide 34 H, Anion Gap 4.7 L, BUN 53 H, Creatinine 1.30 H, Estimated Creat Clear 71, Estimated GFR 55 L, Est GFR ( Amer) 66, Glucose 326 H D, Calcium 7.5 L 07/30/20 05:15: POC Glucose 251 H 07/30/20 06:00: Specimen Source Right radial, O2 % 75, ABG pH 7.27 L, ABG pCO2 67.0 H, ABG pO2 78.1 L, ABG HCO3 29.9 H, ABG Total CO2 32.0 H, ABG O2 Saturation 95, ABG Base Excess 3.0 H, Michele Test Patient unable, Vent Rate 26, Tidal Volume 480, PEEP 8 Vital Signs - 24 hr 07/29/20 09:30 07/29/20 10:00 07/29/20 11:00 Temperature Pulse Rate Pulse Rate [Apical] 77 87 Respiratory Rate 29 H 28 H 30 H Blood Pressure [Right Arm] 112/59 L 115/61 02 Sat by Pulse Oximetry 92 L 97 92 L 07/29/20 12:00 07/29/20 13:00 07/29/20 14:00 Temperature 97.2 F L Pulse Rate 100 H 101 H Pulse Rate [Apical] 95 H 95 H 90 Respiratory Rate 33 H 30 H 30 H Blood Pressure [Right Arm] 138/73 96/59 L 138/71 02 Sat by Pulse Oximetry 92 L 93 L 92 L 07/29/20 15:00 07/29/20 15:59 07/29/20 16:00 Temperature Pulse Rate 100 H Pulse Rate [Apical] 99 H 88 Respiratory Rate 28 H 28 H 30 H Blood Pressure [Right Arm] 131/73 101/64 L 02 Sat by Pulse Oximetry 95 92 L 92 L 07/29/20 17:00 07/29/20 18:00 07/29/20 18:19 Temperature 98.4 F Pulse Rate 103 H Pulse Rate [Apical] 103 H 103 H Respiratory Rate 27 H 30 H 31 H Blood Pressure [Right Arm] 123/71 130/76 02 Sat by Pulse Oximetry 93 L 93 L 91 L 07/29/20 18:57 07/29/20 20:00 07/29/20 21:00 Temperature 98.7 F Pulse Rate 105 H Pulse Rate [Apical] 98 H 95 H 67 Respiratory Rate 30 H 33 H 33 H Blood Pressure [Right Arm] 110/82 127/69 98/54 L 02 Sat by Pulse Oximetry 92 L 90 L 91 L 07/29/20 21:43 07/29/20 22:00 07/29/20 23:00 Temperature Pulse Rate Pulse Rate [Apical] 66 87 Respiratory Rate 32 H 30 H 28 H Blood Pressure [Right Arm] 105/64 L 128/54 L 02 Sat by Pulse Oximetry 91 L 93 L 96 07/30/20 00:00 07/30/20 00:07 07/30/20 00:56 Temperature 98.8 F Pulse Rate 100 H Pulse Rate [Apical] 96 H 93 H Respiratory Rate 30 H 33 H 28 H Blood Pressure [Right Arm] 132/64 120/73 02 Sat by Pulse Oximetry 93 L 93 L 94 L 07/30/20 02:00 07/30/20 02:57 07/30/20 03:57 Temperature 99 F Pulse Rate Pulse Rate [Apical] 94 H 101 H 104 H Respiratory Rate 31 H 29 H 33 H Blood Pressure [Right Arm] 119/66 129/78 121/78 02 Sat by Pulse Oximetry 92 L 07/30/20 04:00 07/30/20 04:06 07/30/20 05:00 Temperature Pulse Rate 105 H Pulse Rate [Apical] 114 H Respiratory Rate 33 H 32 H Blood Pressure [Right Arm] 134/79 02 Sat by Pulse Oximetry 93 L 92 L 07/30/20 05:54 07/30/20 06:00 07/30/20 07:38 Temperature Pulse Rate 100 H Pulse Rate [Apical] 114 H Respiratory Rate 32 H 31 H 29 H Blood Pressure [Right Arm] 125/78 02 Sat by Pulse Oximetry 92 L 94 L I & O for Last 24 hours: Intake & Output 07/27/20
[2020-07-30 09:20] LABS: VBG Base Excess 5.4 mmol/L (-2.4-2.3); VBG HCO3 31.2 mmol/L (23-30); VBG Oxygen Saturation 77.9 % (50-70); VBG PCO2 59.7 mmol/L (35-51); VBG PH 7.34 mmol/L (7.31-7.41); VBG PO2 42.6 mmol/L (28-40)
--- NOTE | 2020-07-30 10:16 | HMH.PULMPN ---
Internal Medicine - PN: Subj *Date: 07/30/20 *Time: 10:16 Interval history: No acute respite events overnight. ET tube dislodged this morning s/p advancing the ET tube and repeat chest x-ray showed appropriate questioning. Exam - Constitutional Constitutional:: Present: no acute distress, comfortable - HENMT Exam HENMT: Present: normocephalic, atraumatic - Eye Exam Eyes:: Present: normal appearance both eyes and related structures - Neck Exam Neck:: Present: normal visual inspection, thyroid normal - Respiratory Exam Respiratory:: Present: crackles - Cardiovascular Exam Cardiac:: Present: S1, S2 - GI Exam GI:: Present: soft - Skin Exam Skin: Present: warm, no rash - Neurological Exam Neurological: Absent: alert, awake, normal cognition - Extremities Exam Extremities: Present: no cyanosis, no clubbing, no edema Assessment and Plan (1) Respiratory failure with hypoxia Status: Acute Qualifiers: Chronicity: acute Qualified Code(s): J96.01 - Acute respiratory failure with hypoxia Category: Medical Code(s): J96.91 - Respiratory failure, unspecified with hypoxia (2) Pneumonia due to COVID-19 virus Status: Acute Category: Medical Code(s): U07.1 - COVID-19; J12.82 - Pneumonia due to coronavirus disease 2019 (3) Anemia Status: Acute Category: Medical Code(s): D64.9 - Anemia, unspecified (4) GI bleed Status: Acute Category: Medical Code(s): K92.2 - Gastrointestinal hemorrhage, unspecified (5) Staphylococcus epidermidis bacteremia Status: Acute Category: Medical Code(s): R78.81 - Bacteremia; B95.7 - Other staphylococcus as the cause of diseases classified elsewhere (6) CAD (coronary artery disease), [place] coronary artery Status: Chronic Qualifiers: [place] vs. transplanted heart: [place] heart Associated angina: without angina Qualified Code(s): I25.10 - Atherosclerotic heart disease of [place] coronary artery without angina pectoris Category: Medical Code(s): I25.10 - Atherosclerotic heart disease of [place] coronary artery without angina pectoris (7) DM2 (diabetes mellitus, type 2) Status: Chronic Qualifiers: Diabetes mellitus shelter insulin use: without computer terminal operator use Diabetes mellitus complication status: without complication Qualified Code(s): E11.9 - Type 2 diabetes mellitus without complications Category: Medical Code(s): E11.9 - Type 2 diabetes mellitus without complications (8) History of left below knee amputation Status: Chronic Category: Medical Code(s): Z89.512 - Acquired absence of left leg below knee (9) History of osteomyelitis Status: Chronic Category: Medical Code(s): Z87.39 - Personal history of other diseases of the musculoskeletal system and connective tissue (10) Sepsis Status: Acute Qualifiers: Sepsis type: sepsis due to unspecified organism Sepsis acute organ dysfunction status: with acute organ dysfunction Severe sepsis acute organ dysfunction type: acute respiratory failure Acute respiratory failure type: with hypoxia Severe sepsis shock status: with septic shock Qualified Code(s): A41.9 - Sepsis, unspecified organism; R65.21 - Severe sepsis with septic shock; J96.01 - Acute respiratory failure with hypoxia Category: Medical Code(s): A41.9 - Sepsis, unspecified organism (11) Elevated LFTs Status: Acute Category: Medical Code(s): R79.89 - Other specified abnormal findings of blood chemistry (12) Staphylococcal meningitis Status: Acute Category: Medical Code(s): G00.3 - Staphylococcal meningitis - Assessment and plan all Dx Assessment and Plan for all problems:: #COVID-19 pneumonia: #Acute hypoxic respiratory failure requiring mechanical ventilation: 69-year-old no prior respiratory complaints never smoker with recent diagnosis of COVID-19 present with worsening respiratory failure cough and productive phlegm. CT showed bilateral diffuse pulmonary infiltr
[2020-07-30 18:35] LABS: POC Glucose,Bedside 194 (70-110)
[2020-07-30 22:43] LABS: POC Glucose,Bedside 212 (70-110)
[2020-07-31] VITALS (41 sets, daily range): BP systolic 101–184; BP diastolic 57–113; PULSE 62–120; RESP 16–39; TEMP 36.1–37.2; O2SAT 90–99
[2020-07-31 06:59] LABS: POC Glucose,Bedside 156 (70-110)
[2020-07-31 07:00] LABS: ABG Base Excess 8.4 mmol/L (-2.4-2.3); ABG HCO3 33.6 mmhg (22.0-26.0); ABG Oxygen Saturation 87 % (90-100); ABG PH 7.38 mmol/L (7.35-7.45); ABG PO2 51.9 mmhg (80-100); ABG TCO2 35.4 mmhg (23-27)
--- NOTE | 2020-07-31 07:00 | PC.NURSE ---
Patient has remained stable throughout the night; SpO2 averages 90%. Patient has been suctioned by ETT every 2 hours with moderate cream colored thick secretions; patient tolerates fairly. Patient will open eyes to verbal command, slightly squeeze left hand, and slightly move left leg when instructed. Generalized edema noted to all extremities. Patient was given basin bath and bed linens were changed; TEDS applied to right lower extremity. Unstageable pressure injury to coccyx area with open red area slightly to the side. Patient has been turned frequently with tolerated ROM performed. Patient scheduled for trach today; consent will need to be obtained and this has been passed in report. Tube feed has been off since 0000.
[2020-07-31 07:04] LABS: Oxygen 60 %
[2020-07-31 07:05] LABS: Allen's Test ACCEPTABLE; PEEP 8; Source Right Radial; Tidal Volume 480; Vent Rate 26
[2020-07-31 07:06] LABS: ABG PCO2 58.2 mmhg (35.0-45.0)
--- NOTE | 2020-07-31 08:16 | PC.NURSE ---
called (Negra) and reverified verbal consent for tracheostomy that is scheduled for today. Renee Peace RN verified verbal consent. Dr. Taylor rounded and procedure is planned for this morning.
--- NOTE | 2020-07-31 08:27 | HMH.CONS ---
*Admission Date: 06/27/20 *Reason for consult:: Chronic respiratory failure, long-term intubation, able to wean off the kunal *History of present illness: Mr. Lehman is a 69-year-old male with a history of CAD status post stenting in 2017 currently on Plavix, hypertension, on metoprolol and losartan, diabetes on Metformin and pioglitazone, recent history of COVID-19 pneumonia on June 252020 presented to the emergency room complaining of worsening shortness of breath and pulmonary was called for further management and further questioning patient started having symptoms earlier this week with worsening cough and shortness of breath and he got tested positive and then he was really advised to come to the ER if symptoms are worsening and patient had worsening cough with fevers and productive phlegm. Patient admits decreased oral intake but adequately being hydrated for the last 3 to 4 days. Patient also admits an episode of dizziness before coming to the ED and patient was found to be orthostatic on presentation and was given fluid bolus. Never smoker. worked in the [employer] previously. Denies any prior respiratory complaints never used inhalers before Patient has remained hospitalized since 06/27/2020. He has been on prolonged mechanical ventilation on high ventilator settings. Routine chest x-ray this morning revealed some subcutaneous emphysema. He underwent follow-up chest x-ray at approximately 5 PM and this revealed possible left-sided pneumothorax. Due to patient's clinical deterioration surgery was contacted approximately 7:30 PM for left chest tube placement. [facility] History Medical History: Reports:: Coronary Artery Disease (Stent placement March 2018.), Diabetes Mellitus Type 2, Gastroesophageal Reflux Disease(GERD), Hyperlipidemia, Hypertension Denies:: Cancer, Diabetes Mellitus Type 1, MRSA, Pulmonary Embolism *Have you ever received a pneumonia vaccine?: No *Have you received a flu vaccine this season?: Yes Other Medical History: Reports: Other Laterality Cases: Bilateral: Cataract (2018) Other Surgeries: Yes: Cardiac Catheterization, Coronary Stent, Other (Lumbar disc with fusion 2006) Amputation: Yes (left BKA) Fractures: Yes (left tib/fib) - *Social History Last grade of school completed: Some college Smoking Status: Never smoker Alcohol Intake: never Alcohol Intake Frequency:: holidays/special occasions only Substance Use Type: denies use *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[employer]) Housing: house Household Members: spouse *Travel in the last 8 weeks: None Family Hx:: Coronary Artery Disease, Other (1 son and 1 daughter, healthy) Review of Systems - *Neurologic Reports abnormal walking (BK amputation, left), Reports dizziness, Reports headache(s), Reports weakness, Denies numbness Meds Home Medications Medication Instructions Recorded Confirmed Type metformin 1,000 mg tablet 1,000 mg PO BID 04/08/18 06/28/20 History pantoprazole 40 mg tablet,delayed 40 mg PO DAILY 04/08/18 06/28/20 History release tamsulosin 0.4 mg capsule 0.4 mg PO DAILY 04/08/18 06/28/20 History dapagliflozin 10 mg tablet 10 mg PO DAILY 30 Days #30 tab 01/14/19 06/28/20 History Clopidogrel Bisulfate [Plavix] 75 mg PO DAILY 06/27/20 06/28/20 History Losartan Potassium [Cozaar 50mg 50 mg PO DAILY 06/27/20 06/28/20 History Tablets] Metoprolol Succinate [Metoprolol 25 mg PO DAILY 06/27/20 06/27/20 History Succinate 25mg Tablet*] Aspirin [Aspirin 81mg chewable 81 mg PO DAILY 06/28/20 06/28/20 History tab] Azithromycin 250 mg PO DAILY 06/28/20 06/28/20 History Ketorolac Tromethamine 1 drp EYE-RIGHT BID 06/28/20 06/28/20 History Prednisolone Acetate/Pf 1 drop OP BID 06/28/20 06/28/20 History [Prednisolone Acet 1% Eye Drop] Atorvastatin Calcium [Lipitor 40mg 40 mg PO DAILY 06/29/20 06/29/20 History Tab] Multivitamin 1 each PO DAILY 06/29/20 06/29/20 History Allergies Allergy/AdvReac Type Severity Reactio
--- NOTE | 2020-07-31 08:46 | HMH.PULMPN ---
Internal Medicine - PN: Subj *Date: 07/31/20 *Time: 11:12 Interval history: No acute respiratory events overnight Exam - Constitutional Constitutional:: Present: no acute distress, comfortable - Eye Exam Eyes:: Present: normal appearance both eyes and related structures - Neck Exam Neck:: Present: thyroid normal - Respiratory Exam Respiratory:: Present: no respiratory distress, crackles - Cardiovascular Exam Cardiac:: Present: S1, S2 - GI Exam GI:: Present: no hepatosplenomegaly - Skin Exam Skin: Present: warm, no rash - Neurological Exam Neurological: Absent: alert, awake, normal cognition - Extremities Exam Extremities: Present: no cyanosis, no clubbing, edema Assessment and Plan (1) Respiratory failure with hypoxia Status: Acute Qualifiers: Chronicity: acute Qualified Code(s): J96.01 - Acute respiratory failure with hypoxia Category: Medical Code(s): J96.91 - Respiratory failure, unspecified with hypoxia (2) Pneumonia due to COVID-19 virus Status: Acute Category: Medical Code(s): U07.1 - COVID-19; J12.82 - Pneumonia due to coronavirus disease 2019 (3) Anemia Status: Acute Category: Medical Code(s): D64.9 - Anemia, unspecified (4) GI bleed Status: Acute Category: Medical Code(s): K92.2 - Gastrointestinal hemorrhage, unspecified (5) Staphylococcus epidermidis bacteremia Status: Acute Category: Medical Code(s): R78.81 - Bacteremia; B95.7 - Other staphylococcus as the cause of diseases classified elsewhere (6) CAD (coronary artery disease), [place] coronary artery Status: Chronic Qualifiers: [place] vs. transplanted heart: [place] heart Associated angina: without angina Qualified Code(s): I25.10 - Atherosclerotic heart disease of [place] coronary artery without angina pectoris Category: Medical Code(s): I25.10 - Atherosclerotic heart disease of [place] coronary artery without angina pectoris (7) DM2 (diabetes mellitus, type 2) Status: Chronic Qualifiers: Diabetes mellitus bed bug exterminator insulin use: without bed bug exterminator use Diabetes mellitus complication status: without complication Qualified Code(s): E11.9 - Type 2 diabetes mellitus without complications Category: Medical Code(s): E11.9 - Type 2 diabetes mellitus without complications (8) History of left below knee amputation Status: Chronic Category: Medical Code(s): Z89.512 - Acquired absence of left leg below knee (9) History of osteomyelitis Status: Chronic Category: Medical Code(s): Z87.39 - Personal history of other diseases of the musculoskeletal system and connective tissue (10) Sepsis Status: Acute Qualifiers: Sepsis type: sepsis due to unspecified organism Sepsis acute organ dysfunction status: with acute organ dysfunction Severe sepsis acute organ dysfunction type: acute respiratory failure Acute respiratory failure type: with hypoxia Severe sepsis shock status: with septic shock Qualified Code(s): A41.9 - Sepsis, unspecified organism; R65.21 - Severe sepsis with septic shock; J96.01 - Acute respiratory failure with hypoxia Category: Medical Code(s): A41.9 - Sepsis, unspecified organism (11) Elevated LFTs Status: Acute Category: Medical Code(s): R79.89 - Other specified abnormal findings of blood chemistry (12) Staphylococcal meningitis Status: Acute Category: Medical Code(s): G00.3 - Staphylococcal meningitis - Assessment and plan all Dx Assessment and Plan for all problems:: #COVID-19 pneumonia: #Acute hypoxic respiratory failure requiring mechanical ventilation: 69-year-old no prior respiratory complaints never smoker with recent diagnosis of COVID-19 present with worsening respiratory failure cough and productive phlegm. CT showed bilateral diffuse pulmonary infiltrates. No evidence of acute pulmonary embolism. Patient respiratory status gradually worsened throughout his hospital course with increasing oxygen require
--- NOTE | 2020-07-31 09:06 | PC.NURSE ---
rounded with Dr. Chance. He ordered to place an NG tube after trach procedure.
--- NOTE | 2020-07-31 09:10 | HMH.ACPN2 ---
Internal Medicine - PN: Subj *Date: 07/31/20 *Time: 09:10 Interval history: No events noted overnight. NPO for trach today. Exam Vital signs and Labs for Last 24 Hours: Temp Pulse Resp BP Pulse Ox 98.6 F 98 H 30 H 131/71 90 L 07/31/20 04:00 07/31/20 07:00 07/31/20 07:00 07/31/20 07:00 07/31/20 07:00 Laboratory Results - last 24 hr 07/30/20 09:16: VBG pH 7.34, VBG pCO2 59.7 H, VBG pO2 42.6 H, VBG HCO3 31.2 H, VBG Total CO2 33.0 H, VBG O2 Saturation 77.9 H, VBG Base Excess 5.4 H 07/30/20 18:25: POC Glucose 194 H 07/30/20 22:19: POC Glucose 212 H 07/31/20 06:51: POC Glucose 156 H 07/31/20 06:53: Specimen Source Right radial, O2 % 60, ABG pH 7.38, ABG pCO2 58.2 H, ABG pO2 51.9 L, ABG HCO3 33.6 H, ABG Total CO2 35.4 H, ABG O2 Saturation 87 L*, ABG Base Excess 8.4 H, Michele Test Acceptable, Vent Rate 26, Tidal Volume 480, PEEP 8 Vital Signs - 24 hr 07/30/20 10:00 07/30/20 11:00 07/30/20 12:00 Temperature Pulse Rate 110 H Pulse Rate [Apical] 100 H 105 H 109 H Respiratory Rate 25 H 25 H 25 H Blood Pressure [Right Arm] 107/71 L 119/68 132/82 02 Sat by Pulse Oximetry 96 92 L 88 L 07/30/20 13:00 07/30/20 13:56 07/30/20 14:00 Temperature 98.9 F Pulse Rate 77 Pulse Rate [Apical] 73 71 Respiratory Rate 24 24 Blood Pressure [Right Arm] 130/76 86/44 L 02 Sat by Pulse Oximetry 90 L 91 L 07/30/20 14:10 07/30/20 15:00 07/30/20 16:00 Temperature Pulse Rate 950 H Pulse Rate [Apical] 87 93 H Respiratory Rate 26 H 24 24 Blood Pressure [Right Arm] 95/54 L 114/66 02 Sat by Pulse Oximetry 93 L 91 L 91 L 07/30/20 17:00 07/30/20 18:00 07/30/20 19:00 Temperature Pulse Rate Pulse Rate [Apical] 90 100 H 101 H Respiratory Rate 24 24 24 Blood Pressure [Right Arm] 120/67 131/73 137/74 02 Sat by Pulse Oximetry 92 L 81 L 91 L 07/30/20 19:04 07/30/20 20:00 07/30/20 21:00 Temperature 98.8 F Pulse Rate 98 H 90 Pulse Rate [Apical] 97 H 102 H Respiratory Rate 29 H 24 24 Blood Pressure [Right Arm] 118/68 126/69 02 Sat by Pulse Oximetry 92 L 93 L 94 L 07/30/20 22:00 07/30/20 22:49 07/30/20 23:00 Temperature Pulse Rate Pulse Rate [Apical] 99 H 107 H Respiratory Rate 24 34 H 29 H Blood Pressure [Right Arm] 121/71 137/82 02 Sat by Pulse Oximetry 93 L 91 L 90 L 07/31/20 00:00 07/31/20 01:00 07/31/20 02:00 Temperature 98.3 F Pulse Rate 85 Pulse Rate [Apical] 86 82 89 Respiratory Rate 32 H 26 H 31 H Blood Pressure [Right Arm] 123/70 125/70 130/73 02 Sat by Pulse Oximetry 90 L 92 L 93 L 07/31/20 02:26 07/31/20 03:00 07/31/20 04:00 Temperature 98.6 F Pulse Rate 70 Pulse Rate [Apical] 94 H 82 Respiratory Rate 34 H 30 H 26 H Blood Pressure [Right Arm] 138/76 127/64 02 Sat by Pulse Oximetry 93 L 92 L 92 L 07/31/20 06:00 07/31/20 07:00 Temperature Pulse Rate 62 Pulse Rate [Apical] 92 H 98 H Respiratory Rate 30 H 30 H Blood Pressure [Right Arm] 123/75 131/71 02 Sat by Pulse Oximetry 90 L 90 L I & O for Last 24 hours: Intake & Output 07/28/20 07/29/20 07/30/20 07/31/20 23:59 23:59 23:59 23:59 Intake Total 3932 / 4198 3958 / 4058 2047 / 2349 302 / 302 Output Total 2556 / 2711 3065 / 3145 1440 / 1440 Balance 1376 / 1487 893 / 913 607 / 909 302 / 302 Weight 201 lb 14.4 oz 203 lb 4.259 oz 201 lb 4.8 oz Microbiology Reports for the Last 24 Hours: Microbiology 07/26/20 14:18 Lung,Right Lower Lobe Gram Stain - Final 07/26/20 14:18 Lung,Right Lower Lobe Bronchial Aspirate Culture - Preliminary Gram Positive Cocci 07/24/20 Unknown Cerebral Spinal Fluid Gram Stain - Final 07/24/20 Unknown Cerebral Spinal Fluid CSF Culture - Final Staphylococcus epidermidis - Constitutional Comments: intubated, awakens to voice - *Routine Respiratory Exam Absent: wheezes, crackles Comments: good air movement, few coarse breath sounds - *Routine Cardiovascular Exam
[2020-07-31 11:37] LABS: POC Glucose,Bedside 214 (70-110)
--- NOTE | 2020-07-31 12:07 | PC.NURSE ---
pt left for the OR with Yudith German, and Eran Navarro
--- NOTE | 2020-07-31 13:25 | PC.NURSE ---
pt back from OR. Pt now has a #6 Joan trach. Dressing CDI. NG tube in place 59 @ the nare. CXR order entered to confirm placement.
--- NOTE | 2020-07-31 13:29 | XR_ITS ---
PROCEDURE: XR CHEST PORTABLE CLINICAL HISTORY: NG tube placement COMPARISON: CT CT CHEST WO CON from 07/24/2020 CR XR CHEST PORTABLE from 07/28/2020 CR XR CHEST PORTABLE from 07/30/2020 CR XR CHEST PORTABLE from 07/30/2020 FINDINGS: 1337 hours Orogastric tube tip is in the region the body of the stomach. Tracheostomy tube and left subclavian central venous line are in good position. There is diffuse bilateral alveolar disease once again noted. No evidence of pneumothorax or pneumomediastinum. IMPRESSION: Tubes and lines in good position. No change diffuse bilateral pneumonia. Dictated by: Michele Sheth MD 07/31/2020 14:19 Michele Sheth MD in OV 07/31/2020 14:19
--- NOTE | 2020-07-31 13:54 | P.PN_ITS ---
[facility] Anesthesia Checklist - Patient Identification Patient Identification: Arm Band - Structural Data Admitted From: Inpatient Planned Operative Procedure/s: Tracheotomy Consent for Planned Operative Procedure(s) Verified: Yes Verified Documents: Surgical Consent, History and Physical - NPO Status Verified Time NPO: 00:00 - Airway Assessment C-Spine Mobility Assessed: No TMJ Mobility Assessed: No Dentition: Poor Dentition - Neurological Assessment Level of Consciousness: Follows Commands (Sedation has been turned off for weeks. RN states that pt will squeeze hands and follow some commands) - Anesthesia Plan Anesthesia Risk discussed: No Anesthesia Plan: Patient unable to respond/answer ASA Class: IV Anesthesia Type: General [facility] History I have reviewed the patient's past medical history: Yes Medical History: Reports:: Coronary Artery Disease (Stent placement March 2018.), Diabetes Mellitus Type 2, Gastroesophageal Reflux Disease(GERD), Hyperlipidemia, Hypertension Denies:: Cancer, Diabetes Mellitus Type 1, MRSA, Pulmonary Embolism *Have you ever received a pneumonia vaccine?: No *Have you received a flu vaccine this season?: Yes Other Medical History: Reports: Other Anesthesia experience/problems:: No known anesthetic complications Laterality Cases: Bilateral: Cataract (2018) Other Surgeries: Yes: Cardiac Catheterization, Coronary Stent, Other (Lumbar disc with fusion 2006) Amputation: Yes (left BKA) Fractures: Yes (left tib/fib) - *Social History Last grade of school completed: Some college Smoking Status: Never smoker Alcohol Intake: never Alcohol Intake Frequency:: holidays/special occasions only Substance Use Type: denies use *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
--- NOTE | 2020-07-31 13:57 | HMH.ANESI ---
[facility] Anesthesia Record Part I Intake, IV Amount: 900 Estimated blood loss (mL): 5 Urine output (mL): 0 Blood Pressure: 101/57 SaO2: 94 Pulse Rate: 92 Respiratory Rate: 16 Temperature: 97 F Patient is:: Drowsy, Stable, Ventilator Stable to PACU at:: 13:15 (ICU)
--- NOTE | 2020-07-31 14:54 | P.OP_ITS ---
Date of procedure: 07/31/20 Pre-op Diagnosis:: 1. Covid- 19 pulmonary inflammation 2. Long-term endotracheal intubation approximately 3 weeks 3. Oxygenation levels with evidence of chronic hypoxia despite the ventilation Post-op Diagnosis:: Same Procedure performed:: Tracheotomy with skin flap Surgeon:: Thad Taylor MD INSTRUMENT AND ELECTRICAL TECHNICIAN:: Sameer Hintonkat Anesthesia: GETA Estimated blood loss (mL): 2 Operative findings:: Same Operative note:: Patient under general anesthesia maintained with an oral endotracheal tube the patient was positioned on the table and the neck was prepped with Betadine and draped. A minimally invasive tracheotomy incision was marked out and skin subcutaneous tissue and platysma were incised. The strap muscles were identified on each side and they were divided on each side. The thyroid isthmus was identified and it was very thickened and accordingly it was divided and oversewn with 2-0 Vicryl. Bleeding was 2 cc and stopped with bipolar cautery. The trachea was identified and it was extremely heavily calcified. However using the curved Funk scissors it was possible to incise the second and third tracheal rings. A skin flap was developed in the tracheal flap was sutured to the skin flap with 2-0 Vicryl sutures. There was a copious amount of mucus surrounding the endotracheal tube and that was all suctioned and then the endotracheal tube was raised in the tracheobronchial tree was suctioned again prior to placing a #6 Shiley endotracheal tube and the anesthetic was transferred to the Shiley tube. Shiley tube was sutured into the skin of the neck using 2-0 nylon sutures the the oral cavity was then suctioned out thoroughly and the patient's ventilation began to improve and his saturations improved to 98% before he was transferred out of the operating room. A small dressing was placed around the tracheostomy site the patient tolerated the procedure well. The operative procedure took 32 minutes. Thad Taylor please send a copy to Dr. Bryon Chance. Condition: stable Disposition: ICU Complications:: None
--- NOTE | 2020-07-31 14:55 | PC.NURSE ---
1315-pt transported to Covid Unit/ICU from OR via HAMILTON Matias,RN and MARYCHUY Dia-pt recovered by NicoleRN and LizettRN at bedside in ICU while remaining in full PPE with ICU nurse HAMILTON Dalal who will be taking over care of pt, pt placed back on ventilator per respiratory therapy upon arrival to ICU-see ventilator settings in additional notes/charting by respiratory therapy and WOOD CARVING LATHE OPERATOR, respiratory therapy remaining at bedside, pt chayo vent settings well w/trach ( Shiley trach tube size 6), vss, pt stable, will contine to monitor 1335-radiology at bedside to verify placement of NG Tube placed by MARYCHUY Dia in OR, pt not on sedation at this time, will grimace move hands minimally with care, respiratory therapy remains at bedside for trach/vent monitoring, vss, pt stable 1345-additional bedside report given to HAMILTON Dalal, pt left in care of HAMILTON Dalal at this time, vss, pt stable
--- NOTE | 2020-07-31 15:07 | SUR.OPER ---
1211-during procedure, staff in OR wearing full PPE at this time r/t COVID precautions
[2020-07-31 16:42] LABS: POC Glucose,Bedside 164 (70-110)
--- NOTE | 2020-07-31 17:15 | PC.NURSE ---
tubefeeds restarted @ 25mL/hr. Goal rate is 46mL/hr. Trach insertion site continues to have serosangenous drainage. Dr. Chance is aware. Trach tie and split drainage sponge has been changed twice since since arriving back to the unit from OR.
[2020-07-31 20:18] LABS: POC Glucose,Bedside 243 (70-110)
[2020-08-01] VITALS (35 sets, daily range): BP systolic 105–160; BP diastolic 43–90; PULSE 71–114; RESP 27–47; TEMP 36.1–37.2; O2SAT 90–99; BMI 25.5
--- NOTE | 2020-08-01 05:00 | XR_ITS ---
PROCEDURE: XR CHEST PORTABLE CLINICAL HISTORY: Pt intubated Follow-up respiratory failure COMPARISON: CT CT CHEST WO CON from 07/24/2020 CR XR CHEST PORTABLE from 07/30/2020 CR XR CHEST PORTABLE from 07/30/2020 CR XR CHEST PORTABLE from 07/31/2020 FINDINGS: 4:19 a.m.. Tracheostomy tube, left subclavian central venous line, and orogastric tube all remain in good position. There remains diffuse bilateral alveolar opacification suggesting diffuse pneumonia or ARDS. No evidence of pneumothorax or pneumomediastinum. IMPRESSION: No change in bilateral pneumonia/ARDS Tubes and lines remain in good position Dictated by: Michele Sheth MD 08/01/2020 07:28 Michele Sheth MD in OV 08/01/2020 07:28
[2020-08-01 05:05] LABS: POC Glucose,Bedside 255 (70-110)
[2020-08-01 06:38] LABS: Basophils # 0.1 K/mm3 (0-0.2); Basophils % 0.3 % (0.1-2.0); Eosinophils % 0.2 % (0.1-12.0); Hematocrit 30.1 % (42.0-52.0); Hemoglobin 9.4 g/dL (14.1-18.0); Lymphocytes # 0.7 K/mm3 (0.7-4.5); Lymphocytes % 3.8 % (10-50); Mean Corpuscular Hemoglobin 28.5 pg (27.0-31.2); Mean Corpuscular Volume 91.7 fl (80-94); Mean Platelet Volume 8.7 fl (7.4-10.4); Monocytes # 1.3 K/mm3 (0.1-1.0); Monocytes % 6.6 % (1.7-9.3); Neutrophils % 89.1 % (37.0-80.0); Platelet Count 214 K/mm3 (142-424); Red Blood Count 3.29 M/mm3 (4.60-6.20); Red Cell Distribution Width 15.5 % (11.5-17.5); White Blood Count 19.1 K/mm3 (4.8-10.8)
[2020-08-01 06:42] LABS: MANUAL DIFFERENTIAL MANUAL DIFFERENTIAL (MANUAL DIFF)
[2020-08-01 06:43] LABS: Chloride 103 mmol/L (98-107); Potassium 4.3 mmoL/L (3.5-5.1); Sodium 139 mmol/L (136-145)
[2020-08-01 06:46] LABS: Blood Urea Nitrogen 44 mg/dl (9-20); Creatinine Clearance Estimated 75 mL/min (50-200); Estimated Glomerular Filt Rate 60 ml/min (>60); GFR (African American) 73 ML/MIN (>60)
[2020-08-01 06:47] LABS: Anion Gap 5.3 mEq/L (5-15); Calcium 8.1 mg/dl (8.4-10.2); Carbon Dioxide 35 mmol/L (22.0-30.0); Glucose 257 mg/dl (74-100)
[2020-08-01 07:00] LABS: ABG Base Excess 4.4 mmol/L (-2.4-2.3); ABG HCO3 30.3 mmhg (22.0-26.0); ABG Oxygen Saturation 95 % (90-100); ABG PH 7.33 mmol/L (7.35-7.45); ABG TCO2 32.1 mmhg (23-27)
[2020-08-01 07:05] LABS: Oxygen 70 %; Tidal Volume 480
[2020-08-01 07:06] LABS: PEEP 8; Source Left Radial; Vent Rate 26
[2020-08-01 07:07] LABS: ABG PCO2 58.4 mmhg (35.0-45.0)
[2020-08-01 07:49] LABS: Lymphocytes % 11 % (10-50); Monocytes % 3 % (2-9); Neutrophils % 86 % (42-76); Total Cells Counted 100
[2020-08-01 07:50] LABS: Platelet Estimate Normal; RBC Morphology Normal
--- NOTE | 2020-08-01 09:19 | HMH.ACPN2 ---
<Suzi Henderson - Last Filed: 08/01/20 09:19> Internal Medicine - PN: Subj *Date: 08/01/20 *Time: 09:19 Interval history: patient has been stable overnight; had a trach yesterday and has copious secretions. Laboratory data this morning show white blood cell count of 20,100 with a hemoglobin of 9.4 and hematocrit of 30.1. Blood chemistries: electrolytes are satisfactory, BUN is 44 and creatinine is 1.2. pt has been responsive to nursing staff with their care. Right lower lobe aspirate revealed staph epidermidis and Corynebacterium AMyCOLATiUM. Sensitivities not done on the lateral. chest x-ray showed no change in bilateral pneumonia/ards. Tubes and line remain in good position. ABGs this morning revealed a pH of 7.33 PCO2 of 58.4 PO2 77 with a bicarb of 30.3. This is on vent settings of tidal volume of 480 rate of 26, PEEP of 8 and FiO2 at 70%. Patient remains on IV fluids at 100 an hour and continues with IV vancomycin. He has been restarted back on tube feedings and seems to be tolerating it well. He continues with a Goncalves catheter with adequate urinary output. Exam Vital signs and Labs for Last 24 Hours: Temp Pulse Resp BP Pulse Ox 98.1 F 104 H 28 H 134/64 95 08/01/20 06:32 08/01/20 06:32 08/01/20 06:32 08/01/20 06:32 08/01/20 06:32 Laboratory Results - last 24 hr 07/06/20 09:39: Blood Type B Positive 07/31/20 11:22: POC Glucose 214 H 07/31/20 16:20: POC Glucose 164 H 07/31/20 20:10: POC Glucose 243 H 08/01/20 04:55: POC Glucose 255 H 08/01/20 05:14: WBC 19.1 H D, RBC 3.29 L, Hgb 9.4 L, Hct 30.1 L, MCV 91.7, MCH 28.5, MCHC 31.0 L, RDW 15.5, Plt Count 214 D, MPV 8.7, Neut % (Auto) 89.1 H, Lymph % (Auto) 3.8 L, [place] % (Auto) 6.6, Eos % (Auto) 0.2, Baso % (Auto) 0.3, Neut # (Auto) 17.0 H, Lymph # (Auto) 0.7, [place] # (Auto) 1.3 H, Eos # (Auto) 0.0, Baso # (Auto) 0.1, Total Counted 100, Neutrophils % (Manual) 86 H, Lymphocytes % (Manual) 11, Monocytes % (Manual) 3, Platelet Estimate Normal, RBC Morphology Normal 08/01/20 05:14: Sodium 139, Potassium 4.3, Chloride 103, Carbon Dioxide 35 H, Anion Gap 5.3, BUN 44 H, Creatinine 1.20, Estimated Creat Clear 75, Estimated GFR 60, Est GFR ( Amer) 73, Glucose 257 H, Calcium 8.1 L 08/01/20 07:00: Specimen Source Left radial, O2 % 70, ABG pH 7.33 L, ABG pCO2 58.4 H, ABG pO2 77.0 L, ABG HCO3 30.3 H, ABG Total CO2 32.1 H, ABG O2 Saturation 95, ABG Base Excess 4.4 H, Michele Test N/a, Vent Rate 26, Tidal Volume 480, PEEP 8 I & O for Last 24 hours: Intake & Output 07/29/20 07/30/20 07/31/20 08/01/20 11:59 11:59 11:59 11:59 Intake Total 4078 / 4344 2692 / 2692 1649 / 1649 3505 / 3505 Output Total 2965 / 3115 2590 / 2590 1045 / 1045 1974 / 1974 Balance 1113 / 1229 102 / 102 604 / 604 1530 / 1530 Weight 203 lb 4.259 oz 201 lb 4.8 oz 199 lb Microbiology Reports for the Last 24 Hours: Microbiology 07/26/20 14:18 Lung,Right Lower Lobe Gram Stain - Final 07/26/20 14:18 Lung,Right Lower Lobe Bronchial Aspirate Culture - Final Staphylococcus epidermidis Corynebacterium amycolatum - Constitutional no acute distress Comments: sleeps through exam - *Routine Neck Exam Comments: trach site looks good with some clear drainage - *Routine Respiratory Exam Present: CTA bilaterally - *Routine Cardiovascular Exam Present: RRR - *Routine Abdominal Exam Present: soft, normoactive bowel sounds. Absent: distended - *Routine Extremities Exam Absent: edema (bilateral arms and legs) - *Routine Neurological Exam sleeps through exam Assessment and Plan (1) Respiratory failure with hypoxia Status: Acute Qualifiers: Chronicity: acute Qualified Code(s): J96.01 - Acute respiratory failure with hypoxia Category: Medical Code(s): J96.91 - Respiratory failure, unspecified with hypoxia (2) Pneumonia due to COVID-19 virus Status: Acute Category: Medical Code(s): U07.1 - COVID-19; J
--- NOTE | 2020-08-01 09:22 | HMH.PULMPN ---
Internal Medicine - PN: Subj *Date: 08/01/20 *Time: 10:43 Interval history: No acute respiratory events overnight. Exam - Constitutional Constitutional:: Present: no acute distress, comfortable - HENMT Exam HENMT: Present: normocephalic, atraumatic - Neck Exam Neck:: Present: normal visual inspection Comments: Trach site incision examined, appears erythematous with secretions around. - Respiratory Exam Respiratory:: Present: bibailar crackels heard, no respiratory distress. Absent: accessory muscle use - Cardiovascular Exam Cardiac:: Present: S1, S2 - GI Exam GI:: Present: soft, no hepatosplenomegaly - Skin Exam Skin: Present: warm, no rash - Neurological Exam Neurological: Absent: alert, awake, normal cognition - Extremities Exam Extremities: Present: no cyanosis, no clubbing, edema Assessment and Plan (1) Respiratory failure with hypoxia Status: Acute Qualifiers: Chronicity: acute Qualified Code(s): J96.01 - Acute respiratory failure with hypoxia Category: Medical Code(s): J96.91 - Respiratory failure, unspecified with hypoxia (2) Pneumonia due to COVID-19 virus Status: Acute Category: Medical Code(s): U07.1 - COVID-19; J12.82 - Pneumonia due to coronavirus disease 2019 (3) Anemia Status: Acute Category: Medical Code(s): D64.9 - Anemia, unspecified (4) GI bleed Status: Acute Category: Medical Code(s): K92.2 - Gastrointestinal hemorrhage, unspecified (5) Staphylococcus epidermidis bacteremia Status: Acute Category: Medical Code(s): R78.81 - Bacteremia; B95.7 - Other staphylococcus as the cause of diseases classified elsewhere (6) CAD (coronary artery disease), [place] coronary artery Status: Chronic Qualifiers: [place] vs. 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: without longterm use Diabetes mellitus complication status: without complication Qualified Code(s): E11.9 - Type 2 diabetes mellitus without complications Category: Medical Code(s): E11.9 - Type 2 diabetes mellitus without complications (8) History of left below knee amputation Status: Chronic Category: Medical Code(s): Z89.512 - Acquired absence of left leg below knee (9) History of osteomyelitis Status: Chronic Category: Medical Code(s): Z87.39 - Personal history of other diseases of the musculoskeletal system and connective tissue (10) Sepsis Status: Acute Qualifiers: Sepsis type: sepsis due to unspecified organism Sepsis acute organ dysfunction status: with acute organ dysfunction Severe sepsis acute organ dysfunction type: acute respiratory failure Acute respiratory failure type: with hypoxia Severe sepsis shock status: with septic shock Qualified Code(s): A41.9 - Sepsis, unspecified organism; R65.21 - Severe sepsis with septic shock; J96.01 - Acute respiratory failure with hypoxia Category: Medical Code(s): A41.9 - Sepsis, unspecified organism (11) Elevated LFTs Status: Acute Category: Medical Code(s): R79.89 - Other specified abnormal findings of blood chemistry (12) Staphylococcal meningitis Status: Acute Category: Medical Code(s): G00.3 - Staphylococcal meningitis - Assessment and plan all Dx Assessment and Plan for all problems:: #COVID-19 pneumonia: #Acute hypoxic respiratory failure requiring mechanical ventilation: 69-year-old no prior respiratory complaints never smoker with recent diagnosis of COVID-19 present with worsening respiratory failure cough and productive phlegm. CT showed bilateral diffuse pulmonary infiltrates. No evidence of acu
[2020-08-01 09:53] LABS: Vancomycin,Trough 28.3 ug/mL (5.0-10.0)
--- NOTE | 2020-08-01 10:10 | HMH.PHACONS ---
- Pharmacy Consult Date: 08/01/20 Time: 10:11 Referring provider: DR. HAMMOND Reason for Consult:: VANCOMYCIN TROUGH LEVEL Allergies and ADEs:: Allergies Allergy/AdvReac Type Severity Reaction Status Date / Time ceftriaxone [From Rocephin] Allergy Mild Verified 05/24/20 09:28 Home Medications:: Home Medications Medication Instructions Recorded Confirmed Type metformin 1,000 mg tablet 1,000 mg PO BID 04/08/18 06/28/20 History pantoprazole 40 mg tablet,delayed 40 mg PO DAILY 04/08/18 06/28/20 History release tamsulosin 0.4 mg capsule 0.4 mg PO DAILY 04/08/18 06/28/20 History dapagliflozin 10 mg tablet 10 mg PO DAILY 30 Days #30 tab 01/14/19 06/28/20 History Clopidogrel Bisulfate [Plavix] 75 mg PO DAILY 06/27/20 06/28/20 History Losartan Potassium [Cozaar 50mg 50 mg PO DAILY 06/27/20 06/28/20 History Tablets] Metoprolol Succinate [Metoprolol 25 mg PO DAILY 06/27/20 06/27/20 History Succinate 25mg Tablet*] Aspirin [Aspirin 81mg chewable 81 mg PO DAILY 06/28/20 06/28/20 History tab] Azithromycin 250 mg PO DAILY 06/28/20 06/28/20 History Ketorolac Tromethamine 1 drp EYE-RIGHT BID 06/28/20 06/28/20 History Prednisolone Acetate/Pf 1 drop OP BID 06/28/20 06/28/20 History [Prednisolone Acet 1% Eye Drop] Atorvastatin Calcium [Lipitor 40mg 40 mg PO DAILY 06/29/20 06/29/20 History Tab] Multivitamin 1 each PO DAILY 06/29/20 06/29/20 History Height: 1.88 m Weight: 90.265 kg Laboratory Results:: Laboratory Results - last 24 hr 07/06/20 09:39: Blood Type B Positive 07/31/20 11:22: POC Glucose 214 H 07/31/20 16:20: POC Glucose 164 H 07/31/20 20:10: POC Glucose 243 H 08/01/20 04:55: POC Glucose 255 H 08/01/20 05:14: WBC 19.1 H D, RBC 3.29 L, Hgb 9.4 L, Hct 30.1 L, MCV 91.7, MCH 28.5, MCHC 31.0 L, RDW 15.5, Plt Count 214 D, MPV 8.7, Neut % (Auto) 89.1 H, Lymph % (Auto) 3.8 L, [place] % (Auto) 6.6, Eos % (Auto) 0.2, Baso % (Auto) 0.3, Neut # (Auto) 17.0 H, Lymph # (Auto) 0.7, [place] # (Auto) 1.3 H, Eos # (Auto) 0.0, Baso # (Auto) 0.1, Total Counted 100, Neutrophils % (Manual) 86 H, Lymphocytes % (Manual) 11, Monocytes % (Manual) 3, Platelet Estimate Normal, RBC Morphology Normal 08/01/20 05:14: Sodium 139, Potassium 4.3, Chloride 103, Carbon Dioxide 35 H, Anion Gap 5.3, BUN 44 H, Creatinine 1.20, Estimated Creat Clear 75, Estimated GFR 60, Est GFR ( Amer) 73, Glucose 257 H, Calcium 8.1 L 08/01/20 07:00: Specimen Source Left radial, O2 % 70, ABG pH 7.33 L, ABG pCO2 58.4 H, ABG pO2 77.0 L, ABG HCO3 30.3 H, ABG Total CO2 32.1 H, ABG O2 Saturation 95, ABG Base Excess 4.4 H, Michele Test N/a, Vent Rate 26, Tidal Volume 480, PEEP 8 08/01/20 08:15: Vancomycin Trough 28.3 H Medical History: Reports:: Coronary Artery Disease (Stent placement March 2018.), Diabetes Mellitus Type 2, Gastroesophageal Reflux Disease(GERD), Hyperlipidemia, Hypertension Denies:: Cancer, Diabetes Mellitus Type 1, MRSA, Pulmonary Embolism Assessment and Plan (1) Respiratory failure with hypoxia Status: Acute Qualifiers: Chronicity: acute Qualified Code(s): J96.01 - Acute respiratory failure with hypoxia Category: Medical Code(s): J96.91 - Respiratory failure, unspecified with hypoxia (2) Pneumonia due to COVID-19 virus Status: Acute Category: Medical Code(s): U07.1 - COVID-19; J12.82 - Pneumonia due to coronavirus disease 2019 (3) Anemia Status: Acute Category: Medical Code(s): D64.9 - Anemia, unspecified (4) GI bleed Status: Acute Category: Medical Code(s): K92.2 - Gastrointestinal hemorrhage, unspecified (5) Staphylococcus epidermidis bacteremia Status: Acute Category: Medical Code(s): R78.81 - Bacteremia; B95.7 - Other staphylococcus as the cause of diseases classified elsewhere (6) CAD (coronary artery disease), [place] coronary artery Status: Chronic Qualifiers: [place] vs. transplanted heart: [place] heart Associated angina: without angina Qualified Code(s): I25.10 - Athero
--- NOTE | 2020-08-01 10:20 | PC.NURSE ---
spoke to Jim Wiseman regarding Vanc trough level. He ordered to HOLD Vanc and the he'll reschedule medication.
--- NOTE | 2020-08-01 10:36 | P.PN_ITS ---
[facility] Anesthesia Record Part II Discharge Time: 13:45 Destination: Intensive Care Unit PACU nurse assessment reviewed?: Yes Patient Condition:: Good Anesthesia Complications:: None Swallowing reflex intact?: No Cyanosis?: No Blood Pressure: 135/75 Pulse Rate: 88 Temperature: 97 F Mental Status: Unresponsive Pain level:: 0 Nausea and/or vomitting:: None Intake, IV Amount: 0
[2020-08-01 11:06] LABS: POC Glucose,Bedside 240 (70-110)
--- NOTE | 2020-08-01 16:00 | PC.NURSE ---
gastric residual 0mL. Tubefeed rate increased to 46mL/hr (goal rate).
[2020-08-02] VITALS (33 sets, daily range): BP systolic 101–145; BP diastolic 47–79; PULSE 76–123; RESP 21–33; TEMP 36.5–38.2; O2SAT 90–96; BMI 25.9
--- NOTE | 2020-08-02 02:31 | PC.NURSE ---
He continues in contact and airborne precautions. Copious amounts of secretions coming from trach. Requires frequent suctioning. Copious amounts of secretions are also coming from around the trach. Respiratory called and has helped place tubing so that it does not pop off the trach as often. When ventilator tubing detaches from trach his O2 drops to 78% quickly but it does rebound fairly quickly once replaced. He continues with pulmocare tube feedings. F/c is patent and draining yellow, clear urine.
--- NOTE | 2020-08-02 05:00 | XR_ITS ---
PROCEDURE: XR CHEST PORTABLE CLINICAL HISTORY: Pt intubated. Respiratory failure COMPARISON: CT CT CHEST WO CON from 07/24/2020 CR XR CHEST PORTABLE from 07/30/2020 CR XR CHEST PORTABLE from 07/31/2020 CR XR CHEST PORTABLE from 08/01/2020 FINDINGS: 3:46 a.m. Tracheostomy tube, left subclavian central venous line, and orogastric tube all remain in good position. No change diffuse bilateral airspace disease. No evidence of pneumothorax or pneumo mediastinum. IMPRESSION: No change in bilateral pneumonia Tubes and lines remain in good position Dictated by: Michele Sheth MD 08/02/2020 06:07 Michele Sheth MD in [place] 08/02/2020 06:07
[2020-08-02 05:11] LABS: Basophils # 0.1 K/mm3 (0-0.2); Basophils % 0.4 % (0.1-2.0); Eosinophils # 0.1 K/mm3 (0.0-0.4); Eosinophils % 0.9 % (0.1-12.0); Hematocrit 28.2 % (42.0-52.0); Hemoglobin 8.9 g/dL (14.1-18.0); Lymphocytes # 0.6 K/mm3 (0.7-4.5); Lymphocytes % 3.9 % (10-50); Mean Corpuscular HGB Conc 31.6 g/dL (31.8-35.4); Mean Corpuscular Hemoglobin 29.1 pg (27.0-31.2); Mean Platelet Volume 8.4 fl (7.4-10.4); Monocytes % 7.2 % (1.7-9.3); Neutrophils # 12.5 K/mm3 (1.8-7.8); Neutrophils % 87.5 % (37.0-80.0); Platelet Count 184 K/mm3 (142-424); Red Blood Count 3.07 M/mm3 (4.60-6.20); Red Cell Distribution Width 15.8 % (11.5-17.5); White Blood Count 14.3 K/mm3 (4.8-10.8)
[2020-08-02 05:15] LABS: Chloride 100 mmol/L (98-107); Sodium 137 mmol/L (136-145)
[2020-08-02 05:16] LABS: Potassium 3.9 mmoL/L (3.5-5.1)
[2020-08-02 05:19] LABS: Anion Gap 2.9 mEq/L (5-15); Blood Urea Nitrogen 39 mg/dl (9-20); Calcium 7.8 mg/dl (8.4-10.2); Carbon Dioxide 38 mmol/L (22.0-30.0); Creatinine Clearance Estimated 76 mL/min (50-200); Estimated Glomerular Filt Rate 60 ml/min (>60); GFR (African American) 73 ML/MIN (>60); Glucose 201 mg/dl (74-100)
[2020-08-02 05:42] LABS: MANUAL DIFFERENTIAL MANUAL DIFFERENTIAL (MANUAL DIFF)
[2020-08-02 06:29] LABS: ABG Base Excess 6.1 mmol/L (-2.4-2.3); ABG HCO3 31.3 mmhg (22.0-26.0); ABG Oxygen Saturation 89 % (90-100); ABG PH 7.38 mmol/L (7.35-7.45)
[2020-08-02 06:34] LABS: Allen's Test Patient Unable; Oxygen 65 %; PEEP 8; Source Right Radial; Tidal Volume 480; Vent Rate 26
[2020-08-02 06:35] LABS: ABG PCO2 54.6 mmhg (35.0-45.0)
[2020-08-02 09:34] LABS: Vancomycin,Trough 21.6 ug/mL (5.0-10.0)
--- NOTE | 2020-08-02 09:41 | HMH.ACPN2 ---
Internal Medicine - PN: Subj *Date: 08/02/20 *Time: 09:41 Interval history: No events noted overnight, FiO2 was weaned down to 65% overnight. Exam Vital signs and Labs for Last 24 Hours: Temp Pulse Resp BP Pulse Ox 97.8 F 109 H 30 H 108/68 L 90 L 08/02/20 06:22 08/02/20 06:22 08/02/20 06:22 08/02/20 06:22 08/02/20 06:22 Laboratory Results - last 24 hr 08/01/20 08:15: Vancomycin Trough 28.3 H 08/01/20 10:58: POC Glucose 240 H 08/02/20 04:35: WBC 14.3 H D, RBC 3.07 L, Hgb 8.9 L, Hct 28.2 L, MCV 92.0, MCH 29.1, MCHC 31.6 L, RDW 15.8, Plt Count 184, MPV 8.4, Neut % (Auto) 87.5 H, Lymph % (Auto) 3.9 L, [place] % (Auto) 7.2, Eos % (Auto) 0.9, Baso % (Auto) 0.4, Neut # (Auto) 12.5 H, Lymph # (Auto) 0.6 L, [place] # (Auto) 1.0, Eos # (Auto) 0.1, Baso # (Auto) 0.1 08/02/20 04:35: Sodium 137, Potassium 3.9, Chloride 100, Carbon Dioxide 38 H, Anion Gap 2.9 L, BUN 39 H, Creatinine 1.20, Estimated Creat Clear 76, Estimated GFR 60, Est GFR ( Amer) 73, Glucose 201 H D, Calcium 7.8 L 08/02/20 07:00: Specimen Source Right radial, O2 % 65, ABG pH 7.38, ABG pCO2 54.6 H, ABG pO2 55.0 L, ABG HCO3 31.3 H, ABG Total CO2 33.0 H, ABG O2 Saturation 89 L, ABG Base Excess 6.1 H, Michele Test Patient unable, Vent Rate 26, Tidal Volume 480, PEEP 8 08/02/20 08:25: Vancomycin Trough 21.6 H Vital Signs - 24 hr 08/01/20 10:00 08/01/20 10:37 08/01/20 11:00 Temperature 97.3 F L 97 F L 97.5 F L Pulse Rate 88 Pulse Rate [Apical] 76 86 Respiratory Rate 44 H 42 H Blood Pressure 135/75 Blood Pressure [Right Arm] 105/57 L 110/54 L 02 Sat by Pulse Oximetry 91 L 08/01/20 12:00 08/01/20 12:09 08/01/20 12:53 Temperature 97.4 F L 98.2 F Pulse Rate 100 H 107 H Pulse Rate [Apical] 85 89 Respiratory Rate 38 H 37 H Blood Pressure Blood Pressure [Right Arm] 106/59 L 124/62 02 Sat by Pulse Oximetry 90 L 90 L 08/01/20 13:59 08/01/20 14:31 08/01/20 14:54 Temperature 98.3 F 98.4 F Pulse Rate Pulse Rate [Apical] 102 H 105 H Respiratory Rate 36 H 29 H 38 H Blood Pressure Blood Pressure [Right Arm] 130/69 130/62 02 Sat by Pulse Oximetry 93 L 94 L 99 08/01/20 15:53 08/01/20 16:00 08/01/20 16:54 Temperature 98.2 F 98.3 F Pulse Rate 80 Pulse Rate [Apical] 104 H 109 H Respiratory Rate 36 H 34 H Blood Pressure Blood Pressure [Right Arm] 117/65 146/78 H 02 Sat by Pulse Oximetry 99 90 L 08/01/20 18:00 08/01/20 18:33 08/01/20 18:54 Temperature 98.3 F 98.2 F Pulse Rate 108 H Pulse Rate [Apical] 110 H 71 Respiratory Rate 47 H 38 H 31 H Blood Pressure Blood Pressure [Right Arm] 151/74 H 120/77 02 Sat by Pulse Oximetry 90 L 92 L 90 L 08/01/20 20:00 08/01/20 21:00 08/01/20 22:00 Temperature 97.5 F L 97.8 F 97.7 F Pulse Rate 110 H Pulse Rate [Apical] 106 H 114 H 86 Respiratory Rate 27 H 29 H 31 H Blood Pressure Blood Pressure [Right Arm] 130/66 129/72 119/55 L 02 Sat by Pulse Oximetry 91 L 90 L 94 L 08/01/20 22:07 08/01/20 22:41 08/01/20 23:00 Temperature 97.9 F Pulse Rate Pulse Rate [Apical] 86 89 Respiratory Rate 29 H 30 H Blood Pressure Blood Pressure [Right Arm] 113/43 L 02 Sat by Pulse Oximetry 96 94 L 95 08/02/20 00:00 08/02/20 01:00 08/02/20 01:36 Temperature 97.8 F 98.5 F Pulse Rate 90 Pulse Rate [Apical] 96 H 93 H 92 H Respiratory Rate 29 H 30 H Blood Pressure Blood Pressure [Right Arm] 125/68 125/72 02 Sat by Pulse Oximetry 93 L 96 95 08/02/20 02:00 08/02/20 02:19 08/02/20 03:00 Temperature 97.7 F 98.7 F Pulse Rate Pulse Rate [Apical] 84 105 H Respiratory Rate 23 33 H 30 H Blood Pressure Blood Pressure [Right Arm] 103/60 L 127/79 02 Sat by Pulse Oximetry 92 L 90 L 92 L 08/02/20 03:24 08/02/20 04:00 08/02/20 05:00 Temperature 98.3 F 97.8 F Pulse Rate 120 H Pulse Rate [Apical] 110 H 113 H Respiratory Rate 30 H 29 H Blood Pressure Blood Pressure [Right Arm] 130/70 123/72 02 Sat by Pulse Oximetry 92 L 91 L 07/23
--- NOTE | 2020-08-02 10:17 | HMH.PTWOUND ---
Rehab Inpt Wound Evaluation Rehab IP Wound Evaluation Start: 08/01/20 13:18 Freq: ONCE Status: Active Protocol: Document 08/02/20 10:00 JEFFREY (Rec: 08/02/20 10:17 JEFFREY [id number]) Rehab PT Wound Assessment Patient Status Premedicated Prior to Dressing Change No Subjective Subjective Pt mechanically ventilated thru trache Wound neck Wound Type Pressure Ulcer Is This a Chronic Wound Yes Wound Staging Unstageable Query Text:Stage I - Unbroken, red skin, no blanching. Stage II - Skin broken, superficial skin loss involving epidermis alone or also dermis. Partial loss of skin layers. Stage III - Pressure area involves epidermis, dermis and subcutaneous tissue, full thickness skin loss. Stage IV - Pressure area involves epidermis, subcutaneous tissue, bone and other supportive tissue. Full thickness skin loss with extensive destruction of underlying tissue and structures. Wound Length (cm) 6 Wound Width (cm) 10 Wound Bed Appearance Eschar Percentage of Eschar (Black) (%) 100 Wound Margins Description Well Defined Surrounding Tissue Appearance [place] Surrounding Tissue Temperature Hot Drainage Amount None Drainage Odor No Odor Dressing Status Dry & Intact Primary Dressing Absorbant Pad Comment optifoam sacral Wound Debridement Amount of Tissue None Removed Plan/Recommendation Comment At this time due to pt's unalert, heavily sedated state , sharp debridement is not recommended for the fear of allowing open wound with possible contamination and soiling due to fecal incontinence of pt. Continue change of sacral dressing PRN and pressure relief turns Q2H. Eval Complexity Eval Charge Codes 37275 - Moderate Complexity G-codes PT Current Status Other PT/OT Status PT Current Status Modifier CN-At least 100% impaired, limited or restricted PT Goal Status Other PT/OT Status PT Goal Status Modifer CN-At least 100% impaired, limited or restricted PHYSICIAN CERTIFICATION: I certify the specified therapy services f
[2020-08-02 10:39] LABS: Eosinophils % 1 % (0-3); Lymphocytes % 2 % (10-50); Monocytes % 5 % (2-9); Neutrophils % 92 % (42-76); Platelet Estimate Normal; RBC Morphology Normal; Total Cells Counted 100
--- NOTE | 2020-08-02 15:35 | PC.NURSE ---
No acute changes noted this shift, copious secretions noted this shift at trach site, trach care provided by this RN, no changes to vent settings this shift, perrla, pt unable to follow commands this shift, does shake head yes and no, Pt at bedside this shift per wound care eval and passive ROM, pt has been turned and provided oral care q2h, has required frequent suctioning this shift, febrile this afternoon, fever treated with tylenol prn per emar, dsg to coccyx changed per PT, FC patent and draining clear yellow urine, NG tube in place to R nare, pulmocare infusing at goal rate with minimal GRV, will continue to monitor for changes.
[2020-08-03] VITALS (34 sets, daily range): BP systolic 101–148; BP diastolic 56–84; PULSE 90–137; RESP 17–35; TEMP 36.4–37.8; O2SAT 87–96; BMI 25.4
--- NOTE | 2020-08-03 04:31 | PC.NURSE ---
No acute changes overnight. Copious secretions noted in and around trach. Secretions have been suctioned q2h and prn, a drsg has been applied and replaced under trach. Vent settings are: RR 26, TV 480, FiO2 65%, PEEP 8. Sats in the low 90s. Pt able to follow commands by shaking head yes and no, weak hand primary operator and foot pushes. [place] draining clear, yellow urine. Pt turned q2h, oral care q2h and prn. heels floated. drsg on coccyx c/d/i. Pt became febrile, tylenol given per MAR, blankets removed, fan applied with desired effects. VSS, no concerns at this time.
--- NOTE | 2020-08-03 05:00 | XR_ITS ---
PROCEDURE: XR CHEST PORTABLE CLINICAL HISTORY: Ventilated patient Respiratory failure COMPARISON: CT CT CHEST WO CON from 07/24/2020 CR XR CHEST PORTABLE from 07/31/2020 CR XR CHEST PORTABLE from 08/01/2020 CR XR CHEST PORTABLE from 08/02/2020 FINDINGS: 5 a.m. Tracheostomy tube left subclavian central venous line and nasogastric tube are in good position There remains diffuse bilateral alveolar disease which appears worse with may be due to the technique and inspiratory degree.. No evidence of pneumothorax. IMPRESSION: Diffuse bilateral pneumonia Tubes and lines remain in good position Dictated by: Michele Sheth MD 08/03/2020 05:30 Michele Sheth MD in [place] 08/03/2020 05:30
[2020-08-03 05:50] LABS: Chloride 100 mmol/L (98-107); Potassium 4.1 mmoL/L (3.5-5.1); Sodium 138 mmol/L (136-145)
[2020-08-03 05:52] LABS: Basophils # 0.1 K/mm3 (0-0.2); Basophils % 0.5 % (0.1-2.0); Eosinophils # 0.1 K/mm3 (0.0-0.4); Eosinophils % 0.5 % (0.1-12.0); Hemoglobin 8.5 g/dL (14.1-18.0); Lymphocytes # 0.5 K/mm3 (0.7-4.5); Lymphocytes % 3.8 % (10-50); Mean Corpuscular HGB Conc 31.5 g/dL (31.8-35.4); Mean Platelet Volume 8.7 fl (7.4-10.4); Monocytes # 0.8 K/mm3 (0.1-1.0); Monocytes % 6.6 % (1.7-9.3); Neutrophils # 10.8 K/mm3 (1.8-7.8); Neutrophils % 88.6 % (37.0-80.0); Platelet Count 168 K/mm3 (142-424); Red Blood Count 2.93 M/mm3 (4.60-6.20); White Blood Count 12.1 K/mm3 (4.8-10.8)
[2020-08-03 05:53] LABS: Anion Gap 4.1 mEq/L (5-15); Blood Urea Nitrogen 38 mg/dl (9-20); Carbon Dioxide 38 mmol/L (22.0-30.0); Creatinine Clearance Estimated 82 mL/min (50-200); Estimated Glomerular Filt Rate 67 ml/min (>60); GFR (African American) 81 ML/MIN (>60)
[2020-08-03 05:54] LABS: Calcium 7.7 mg/dl (8.4-10.2); Glucose 245 mg/dl (74-100)
[2020-08-03 05:58] LABS: MANUAL DIFFERENTIAL MANUAL DIFFERENTIAL (MANUAL DIFF)
[2020-08-03 06:26] LABS: Lymphocytes % 3 % (10-50); Monocytes % 5 % (2-9); Neutrophils % 92 % (42-76); Total Cells Counted 100
[2020-08-03 06:27] LABS: RBC Morphology Normal
[2020-08-03 06:28] LABS: Platelet Estimate Normal
[2020-08-03 07:20] LABS: ABG Base Excess 5.2 mmol/L (-2.4-2.3); ABG HCO3 30.4 mmhg (22.0-26.0); ABG Oxygen Saturation 93 % (90-100); ABG PH 7.38 mmol/L (7.35-7.45); ABG PO2 69.2 mmhg (80-100)
[2020-08-03 07:21] LABS: Allen's Test Acceptable; Oxygen 65 %; PEEP 8; Source Right Radial; Tidal Volume 480; Vent Rate 26
[2020-08-03 07:22] LABS: ABG PCO2 52.9 mmhg (35.0-45.0)
[2020-08-03 07:40] LABS: POC Glucose,Bedside 198 (70-110)
[2020-08-03 07:40] LABS: POC Glucose,Bedside 339 (70-110)
[2020-08-03 07:40] LABS: POC Glucose,Bedside 278 (70-110)
[2020-08-03 07:41] LABS: POC Glucose,Bedside 249 (70-110)
[2020-08-03 07:41] LABS: POC Glucose,Bedside 162 (70-110)
[2020-08-03 07:41] LABS: POC Glucose,Bedside 250 (70-110)
[2020-08-03 07:41] LABS: POC Glucose,Bedside 304 (70-110)
--- NOTE | 2020-08-03 08:49 | HMH.ACPN2 ---
Internal Medicine - PN: Subj *Date: 08/03/20 *Time: 09:20 Interval history: Patient had a low grade fever yesterday afternoon, T max 100.7, otherwise no new events noted. Exam Vital signs and Labs for Last 24 Hours: Temp Pulse Resp BP Pulse Ox 98.2 F 114 H 35 H 123/64 92 L 08/03/20 08:00 08/03/20 08:00 08/03/20 08:00 08/03/20 08:00 08/03/20 08:00 Laboratory Results - last 24 hr 08/01/20 16:17: POC Glucose 339 H* 08/01/20 20:43: POC Glucose 278 H 08/02/20 04:21: POC Glucose 198 H 08/02/20 04:35: Total Counted 100, Neutrophils % (Manual) 92 H, Lymphocytes % (Manual) 2 L, Monocytes % (Manual) 5, Eosinophils % (Manual) 1, Platelet Estimate Normal, RBC Morphology Normal 08/02/20 08:25: Vancomycin Trough 21.6 H 08/02/20 11:46: POC Glucose 304 H* 08/02/20 16:27: POC Glucose 249 H 08/02/20 21:16: POC Glucose 162 H 08/03/20 05:20: WBC 12.1 H, RBC 2.93 L, Hgb 8.5 L, Hct 27.0 L, MCV 92.0, MCH 29.0, MCHC 31.5 L, RDW 16.0, Plt Count 168, MPV 8.7, Neut % (Auto) 88.6 H, Lymph % (Auto) 3.8 L, [place] % (Auto) 6.6, Eos % (Auto) 0.5, Baso % (Auto) 0.5, Neut # (Auto) 10.8 H, Lymph # (Auto) 0.5 L, [place] # (Auto) 0.8, Eos # (Auto) 0.1, Baso # (Auto) 0.1, Total Counted 100, Neutrophils % (Manual) 92 H, Lymphocytes % (Manual) 3 L, Monocytes % (Manual) 5, Platelet Estimate Normal, RBC Morphology Normal 08/03/20 05:20: Sodium 138, Potassium 4.1, Chloride 100, Carbon Dioxide 38 H, Anion Gap 4.1 L, BUN 38 H, Creatinine 1.10, Estimated Creat Clear 82, Estimated GFR 67, Est GFR ( Amer) 81, Glucose 245 H, Calcium 7.7 L 08/03/20 05:23: POC Glucose 250 H 08/03/20 06:00: Specimen Source Right radial, O2 % 65, ABG pH 7.38, ABG pCO2 52.9 H, ABG pO2 69.2 L, ABG HCO3 30.4 H, ABG Total CO2 32.0 H, ABG O2 Saturation 93, ABG Base Excess 5.2 H, Michele Test Acceptable, Vent Rate 26, Tidal Volume 480, PEEP 8 Vital Signs - 24 hr 08/02/20 09:00 08/02/20 10:00 08/02/20 10:26 Temperature Pulse Rate Pulse Rate [Apical] 122 H 123 H Respiratory Rate 26 H 26 H 31 H Blood Pressure [Right Arm] 131/65 122/64 02 Sat by Pulse Oximetry 91 L 91 L 91 L 08/02/20 11:00 08/02/20 12:00 08/02/20 13:00 Temperature 98.3 F Pulse Rate 100 H Pulse Rate [Apical] 97 H 105 H 112 H Respiratory Rate 24 26 H 26 H Blood Pressure [Right Arm] 121/59 L 132/67 115/57 L 02 Sat by Pulse Oximetry 92 L 94 L 94 L 08/02/20 13:21 08/02/20 14:00 08/02/20 14:39 Temperature Pulse Rate 115 H Pulse Rate [Apical] 108 H Respiratory Rate 25 H 32 H Blood Pressure [Right Arm] 145/63 H 02 Sat by Pulse Oximetry 94 L 93 L 08/02/20 15:00 08/02/20 16:00 08/02/20 17:00 Temperature 100.7 F H Pulse Rate 120 H Pulse Rate [Apical] 113 H 115 H 109 H Respiratory Rate 26 H 26 H 26 H Blood Pressure [Right Arm] 126/62 103/58 L 111/58 L 02 Sat by Pulse Oximetry 93 L 93 L 95 08/02/20 17:50 08/02/20 18:00 08/02/20 18:58 Temperature 98.9 F Pulse Rate Pulse Rate [Apical] 112 H 109 H Respiratory Rate 28 H 26 H Blood Pressure [Right Arm] 127/62 108/61 L 02 Sat by Pulse Oximetry 93 L 93 L 94 L 08/02/20 19:41 08/02/20 20:00 08/02/20 21:00 Temperature 98.6 F 98.6 F Pulse Rate 104 H 100 H Pulse Rate [Apical] 104 H 107 H Respiratory Rate 27 H 21 29 H Blood Pressure [Right Arm] 101/47 L 110/64 02 Sat by Pulse Oximetry 92 L 91 L 96 08/02/20 22:00 08/02/20 22:20 08/02/20 23:00 Temperature 98.5 F 99.3 F Pulse Rate Pulse Rate [Apical] 112 H 76 Respiratory Rate 27 H 28 H 27 H Blood Pressure [Right Arm] 102/54 L 112/55 L 02 Sat by Pulse Oximetry 96 96 91 L 08/03/20 00:00 08/03/20 01:00 08/03/20 02:00 Temperature 98.6 F 99.0 F Pulse Rate 100 H Pulse Rate [Apical] 101 H 98 H 105 H Respiratory Rate 27 H 28 H 30 H Blood Pressure [Right Arm] 111/56 L 129/71 124/69 02 Sat by Pulse Oximetry 91 L 92 L 92 L 08/03/20 02:40 08/03/20 03:00 08/03/20 04:00 Temperature 99.0 F 99.0 F Pulse Rate 90 Pulse Rate [Apical] 104 H 109 H Respiratory Rate
[2020-08-03 09:04] LABS: Vancomycin,Trough 16.5 ug/mL (5.0-10.0)
--- NOTE | 2020-08-03 09:27 | HMH.PHACONS ---
- Pharmacy Consult Date: 08/03/20 Time: 09:27 Referring provider: DR. HAMMOND Reason for Consult:: VANCOMYCIN TROUGH LEVEL Allergies and ADEs:: Allergies Allergy/AdvReac Type Severity Reaction Status Date / Time ceftriaxone [From Rocephin] Allergy Mild Verified 05/24/20 09:28 Home Medications:: Home Medications Medication Instructions Recorded Confirmed Type metformin 1,000 mg tablet 1,000 mg PO BID 04/08/18 06/28/20 History pantoprazole 40 mg tablet,delayed 40 mg PO DAILY 04/08/18 06/28/20 History release tamsulosin 0.4 mg capsule 0.4 mg PO DAILY 04/08/18 06/28/20 History dapagliflozin 10 mg tablet 10 mg PO DAILY 30 Days #30 tab 01/14/19 06/28/20 History Clopidogrel Bisulfate [Plavix] 75 mg PO DAILY 06/27/20 06/28/20 History Losartan Potassium [Cozaar 50mg 50 mg PO DAILY 06/27/20 06/28/20 History Tablets] Metoprolol Succinate [Metoprolol 25 mg PO DAILY 06/27/20 06/27/20 History Succinate 25mg Tablet*] Aspirin [Aspirin 81mg chewable 81 mg PO DAILY 06/28/20 06/28/20 History tab] Azithromycin 250 mg PO DAILY 06/28/20 06/28/20 History Ketorolac Tromethamine 1 drp EYE-RIGHT BID 06/28/20 06/28/20 History Prednisolone Acetate/Pf 1 drop OP BID 06/28/20 06/28/20 History [Prednisolone Acet 1% Eye Drop] Atorvastatin Calcium [Lipitor 40mg 40 mg PO DAILY 06/29/20 06/29/20 History Tab] Multivitamin 1 each PO DAILY 06/29/20 06/29/20 History Height: 1.88 m Weight: 89.953 kg Laboratory Results:: Laboratory Results - last 24 hr 08/01/20 16:17: POC Glucose 339 H* 08/01/20 20:43: POC Glucose 278 H 08/02/20 04:21: POC Glucose 198 H 08/02/20 04:35: Total Counted 100, Neutrophils % (Manual) 92 H, Lymphocytes % (Manual) 2 L, Monocytes % (Manual) 5, Eosinophils % (Manual) 1, Platelet Estimate Normal, RBC Morphology Normal 08/02/20 08:25: Vancomycin Trough 21.6 H 08/02/20 11:46: POC Glucose 304 H* 08/02/20 16:27: POC Glucose 249 H 08/02/20 21:16: POC Glucose 162 H 08/03/20 05:20: WBC 12.1 H, RBC 2.93 L, Hgb 8.5 L, Hct 27.0 L, MCV 92.0, MCH 29.0, MCHC 31.5 L, RDW 16.0, Plt Count 168, MPV 8.7, Neut % (Auto) 88.6 H, Lymph % (Auto) 3.8 L, [place] % (Auto) 6.6, Eos % (Auto) 0.5, Baso % (Auto) 0.5, Neut # (Auto) 10.8 H, Lymph # (Auto) 0.5 L, [place] # (Auto) 0.8, Eos # (Auto) 0.1, Baso # (Auto) 0.1, Total Counted 100, Neutrophils % (Manual) 92 H, Lymphocytes % (Manual) 3 L, Monocytes % (Manual) 5, Platelet Estimate Normal, RBC Morphology Normal 08/03/20 05:20: Sodium 138, Potassium 4.1, Chloride 100, Carbon Dioxide 38 H, Anion Gap 4.1 L, BUN 38 H, Creatinine 1.10, Estimated Creat Clear 82, Estimated GFR 67, Est GFR ( Amer) 81, Glucose 245 H, Calcium 7.7 L 08/03/20 05:23: POC Glucose 250 H 08/03/20 06:00: Specimen Source Right radial, O2 % 65, ABG pH 7.38, ABG pCO2 52.9 H, ABG pO2 69.2 L, ABG HCO3 30.4 H, ABG Total CO2 32.0 H, ABG O2 Saturation 93, ABG Base Excess 5.2 H, Michele Test Acceptable, Vent Rate 26, Tidal Volume 480, PEEP 8 08/03/20 08:30: Vancomycin Trough 16.5 H Medical History: Reports:: Coronary Artery Disease (Stent placement March 2018.), Diabetes Mellitus Type 2, Gastroesophageal Reflux Disease(GERD), Hyperlipidemia, Hypertension Denies:: Cancer, Diabetes Mellitus Type 1, MRSA, Pulmonary Embolism Assessment and Plan (1) Respiratory failure with hypoxia Status: Acute Qualifiers: Chronicity: acute Qualified Code(s): J96.01 - Acute respiratory failure with hypoxia Category: Medical Code(s): J96.91 - Respiratory failure, unspecified with hypoxia (2) Pneumonia due to COVID-19 virus Status: Acute Category: Medical Code(s): U07.1 - COVID-19; J12.82 - Pneumonia due to coronavirus disease 2019 (3) Anemia Status: Acute Category: Medical Code(s): D64.9 - Anemia, unspecified (4) GI bleed Status: Acute Category: Medical Code(s): K92.2 - Gastrointestinal hemorrhage, unspecified (5) Staphylococcus epidermidis bacteremia Status: Acute Category: Medical Code(s): R78.81 -
--- NOTE | 2020-08-03 10:39 | HMH.PULMPN ---
Internal Medicine - PN: Subj *Date: 08/03/20 *Time: 10:39 Interval history: No acute respiratory vents overnight. Exam - Constitutional Constitutional:: Present: comfortable, lethargic - Eye Exam Eyes:: Present: eyelids normal, normal conjunctiva - Neck Exam Neck:: Present: thyroid normal Comments: Tracheostomy site with significant amount of yellowish secretions. - Respiratory Exam Respiratory:: Present: crackles - Cardiovascular Exam Cardiac:: Present: S1, S2 - GI Exam GI:: Present: soft - Skin Exam Skin: Present: warm, no rash - Neurological Exam Neurological: Absent: alert, awake, normal cognition - Extremities Exam Extremities: Present: no cyanosis, no clubbing Assessment and Plan (1) Respiratory failure with hypoxia Status: Acute Qualifiers: Chronicity: acute Qualified Code(s): J96.01 - Acute respiratory failure with hypoxia Category: Medical Code(s): J96.91 - Respiratory failure, unspecified with hypoxia (2) Pneumonia due to COVID-19 virus Status: Acute Category: Medical Code(s): U07.1 - COVID-19; J12.82 - Pneumonia due to coronavirus disease 2019 (3) Anemia Status: Acute Category: Medical Code(s): D64.9 - Anemia, unspecified (4) GI bleed Status: Acute Category: Medical Code(s): K92.2 - Gastrointestinal hemorrhage, unspecified (5) Staphylococcus epidermidis bacteremia Status: Acute Category: Medical Code(s): R78.81 - Bacteremia; B95.7 - Other staphylococcus as the cause of diseases classified elsewhere (6) CAD (coronary artery disease), [place] coronary artery Status: Chronic Qualifiers: [place] vs. 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 use Diabetes mellitus complication status: without complication Qualified Code(s): E11.9 - Type 2 diabetes mellitus without complications Category: Medical Code(s): E11.9 - Type 2 diabetes mellitus without complications (8) History of left below knee amputation Status: Chronic Category: Medical Code(s): Z89.512 - Acquired absence of left leg below knee (9) History of osteomyelitis Status: Chronic Category: Medical Code(s): Z87.39 - Personal history of other diseases of the musculoskeletal system and connective tissue (10) Sepsis Status: Acute Qualifiers: Sepsis type: sepsis due to unspecified organism Sepsis acute organ dysfunction status: with acute organ dysfunction Severe sepsis acute organ dysfunction type: acute respiratory failure Acute respiratory failure type: with hypoxia Severe sepsis shock status: with septic shock Qualified Code(s): A41.9 - Sepsis, unspecified organism; R65.21 - Severe sepsis with septic shock; J96.01 - Acute respiratory failure with hypoxia Category: Medical Code(s): A41.9 - Sepsis, unspecified organism (11) Elevated LFTs Status: Acute Category: Medical Code(s): R79.89 - Other specified abnormal findings of blood chemistry (12) Staphylococcal meningitis Status: Acute Category: Medical Code(s): G00.3 - Staphylococcal meningitis - Assessment and plan all Dx Assessment and Plan for all problems:: #COVID-19 pneumonia: #Acute hypoxic respiratory failure requiring mechanical ventilation: 69-year-old no prior respiratory complaints never smoker with recent diagnosis of COVID-19 present with worsening respiratory failure cough and productive phlegm. CT showed bilateral diffuse pulmonary infiltrates. No evidence of acute pulmonary embolism. Patient respiratory status gradually worsened throughout his hospital course with increasing oxyge
--- NOTE | 2020-08-03 15:13 | PC.NURSE ---
No acute changes this shift, patient remains ventilated with tracheostomy, 6.[address], trach care completed this shift, pt has moderate amount of secretions, trach gauze has been change frequently and has required frequent suctioning, has been turned q2h and provided oral care, pt unable to follow simple commands, does open eyes spontaneously and to voice, perrla, HR reg, lung sounds diminished t/o, abd soft and nontender, active bowel sounds in all quads, NG tube in place with pulmocare infusing at goal rate, minimal GRV noted this shift, FC patent and draining clear yellow urine at bedside, unstageable noted to coccyx with dsg intact, Left BKA, peripheral pulses intact, vss, has remained afebrile thus far this shift, will continue to monitor.
[2020-08-03 16:34] LABS: POC Glucose,Bedside 216 (70-110)
[2020-08-03 20:22] LABS: POC Glucose,Bedside 144 (70-110)
[2020-08-03 23:37] LABS: POC Glucose,Bedside 195 (70-110)
[2020-08-04] VITALS (32 sets, daily range): BP systolic 102–136; BP diastolic 58–82; PULSE 82–115; RESP 21–39; TEMP 36.9–37.9; O2SAT 88–96; BMI 24.7
--- NOTE | 2020-08-04 03:32 | PC.NURSE ---
Trach care performed with RT in room. Moderate drainage noted from surgical site of trach area. Cream to clear in color. Oral care and suctioning provided. Pt turned and repositioned Q2 hrs. Medication administered per aug. Pt administered Robinul for secretions and Robitussin DM for cough, which has helped this shift. Pt will respond to some questions asked by shaking his head. VSS. Vent settings are as follows AC, R 20, TV 480, PEEP 8 FiO2 65. NG tube to (R) nare with pulmocare infusing @ 46 ml/hr. Last residual was 30 ml. No other concerns. Will continue to monitor.
--- NOTE | 2020-08-04 05:00 | XR_ITS ---
PROCEDURE: XR CHEST PORTABLE Referring Doctor: Bryon Chance Patient Age:69Y CLINICAL HISTORY: Pt intubated. Covd positive COMPARISON: CT CT CHEST WO CON from 07/24/2020 CR XR CHEST PORTABLE from 08/01/2020 CR XR CHEST PORTABLE from 08/02/2020 CR XR CHEST PORTABLE from 08/03/2020 FINDINGS: AP portable semi-erect CXR performed at 5:08a.m. two images submitted-the 1st is more optimal Tracheostomy tube stable, satisfactory. Left subclavian central venous catheter satisfactory position with tip at SVC. NG tube in place satisfactory position extending well into the stomach Diffuse bilateral infiltrates again seen w no significant change since yesterday Bilateral infiltrate evident towards the lower lung loja and perihilar regions/mid lungs and diminishing towards apices.. Slight improved expansion today Small bilateral pleural effusions. Pleural fluid yields blunting at CP angles and is tracking along the lateral chest wall of. Of this is most evident on right with I suspect slight progression of pleural fluid since previous. Appears to be some prominence of pulmonary vascularity suggesting vascular congestion and possible mild CHF contributing to the overall picture. Although the semi-erect position may contribute of it may be helpful to correlation with BNP Mild cardiomegaly again noted. Superior mediastinum unchanged IMPRESSION: Bilateral pneumonia-no significant change since yesterday. Diffuse bilateral infiltrate most evident towards lung bases, right lung slightly more so than left Small bilateral pleural effusions-have progressed slightly since previous studies Mild cardiomegaly with suspect mild vascular congestion. Question possible mild CHF component also contributing to above overall appearance. Consider correlation with BNP Dictated by: Bienvenido Moreno MD 08/04/2020 08:31 Bienvenido Moreno MD in [place] 08/04/2020 08:31
[2020-08-04 06:08] LABS: POC Glucose,Bedside 220 (70-110)
[2020-08-04 06:42] LABS: ABG Base Excess 11.5 mmol/L (-2.4-2.3); ABG HCO3 36.6 mmhg (22.0-26.0); ABG Oxygen Saturation 95 % (90-100); ABG PH 7.38 mmol/L (7.35-7.45); ABG PO2 79.2 mmhg (80-100); ABG TCO2 38.6 mmhg (23-27)
[2020-08-04 06:45] LABS: Allen's Test Patient Unable; Oxygen 65 %; PEEP 8; Source Right Radial; Tidal Volume 480
[2020-08-04 06:46] LABS: ABG PCO2 63.8 mmhg (35.0-45.0)
[2020-08-04 06:52] LABS: Basophils # 0.1 K/mm3 (0-0.2); Basophils % 0.4 % (0.1-2.0); Eosinophils # 0.1 K/mm3 (0.0-0.4); Eosinophils % 0.5 % (0.1-12.0); Hemoglobin 8.5 g/dL (14.1-18.0); Lymphocytes # 0.5 K/mm3 (0.7-4.5); Lymphocytes % 3.3 % (10-50); Mean Corpuscular HGB Conc 31.7 g/dL (31.8-35.4); Mean Corpuscular Hemoglobin 29.4 pg (27.0-31.2); Mean Corpuscular Volume 92.7 fl (80-94); Mean Platelet Volume 8.7 fl (7.4-10.4); Monocytes # 0.7 K/mm3 (0.1-1.0); Monocytes % 4.8 % (1.7-9.3); Neutrophils # 14.1 K/mm3 (1.8-7.8); Platelet Count 197 K/mm3 (142-424); Red Blood Count 2.91 M/mm3 (4.60-6.20); Red Cell Distribution Width 16.2 % (11.5-17.5); White Blood Count 15.5 K/mm3 (4.8-10.8)
[2020-08-04 06:56] LABS: Chloride 100 mmol/L (98-107); Sodium 141 mmol/L (136-145)
[2020-08-04 06:57] LABS: Potassium 4.4 mmoL/L (3.5-5.1)
[2020-08-04 06:59] LABS: Blood Urea Nitrogen 41 mg/dl (9-20); Creatinine Clearance Estimated 80 mL/min (50-200); Estimated Glomerular Filt Rate 67 ml/min (>60); GFR (African American) 81 ML/MIN (>60)
[2020-08-04 07:00] LABS: Glucose 208 mg/dl (74-100)
[2020-08-04 07:00] LABS: Vent Rate 20
--- NOTE | 2020-08-04 07:00 | PC.NURSE ---
Pt febrile this AM. 2 sets of Blood Cultures obtained.
[2020-08-04 07:01] LABS: MANUAL DIFFERENTIAL MANUAL DIFFERENTIAL (MANUAL DIFF)
[2020-08-04 07:07] LABS: Anion Gap 6.4 mEq/L (5-15); Carbon Dioxide 39 mmol/L (22.0-30.0)
[2020-08-04 07:16] LABS: Eosinophils % 1 % (0-3); Lymphocytes % 6 % (10-50); Monocytes % 2 % (2-9); Neutrophils % 91 % (42-76); Platelet Estimate Normal; RBC Morphology Normal; Total Cells Counted 100
--- NOTE | 2020-08-04 09:52 | PC.NURSE ---
Received call from Dr. Myles. He ordered to decreased PEEP to 6. Called RT (Bonita) and notified her. Dr. Myles also gave the ok to cut sutures around trach plate as pt is getting skin breakdown. Will now be able to place a drain sponge around trach site to decrease and improve skin breakdown.
--- NOTE | 2020-08-04 10:25 | HMH.ACPN2 ---
Internal Medicine - PN: Subj *Date: 08/04/20 *Time: 10:25 Interval history: Patient Tmax was 100.3 this morning so blood cultures were repeated, no other events noted. Exam Vital signs and Labs for Last 24 Hours: Temp Pulse Resp BP Pulse Ox 99.5 F 98 H 24 105/58 L 92 L 08/04/20 10:00 08/04/20 10:00 08/04/20 10:00 08/04/20 10:00 08/04/20 10:00 Laboratory Results - last 24 hr 08/03/20 16:27: POC Glucose 216 H 08/03/20 20:06: POC Glucose 144 H 08/03/20 23:30: POC Glucose 195 H 08/04/20 05:46: POC Glucose 220 H 08/04/20 06:05: WBC 15.5 H D, RBC 2.91 L, Hgb 8.5 L, Hct 27.0 L, MCV 92.7, MCH 29.4, MCHC 31.7 L, RDW 16.2, Plt Count 197, MPV 8.7, Neut % (Auto) 91.0 H, Lymph % (Auto) 3.3 L, [place] % (Auto) 4.8, Eos % (Auto) 0.5, Baso % (Auto) 0.4, Neut # (Auto) 14.1 H, Lymph # (Auto) 0.5 L, [place] # (Auto) 0.7, Eos # (Auto) 0.1, Baso # (Auto) 0.1, Total Counted 100, Neutrophils % (Manual) 91 H, Lymphocytes % (Manual) 6 L, Monocytes % (Manual) 2, Eosinophils % (Manual) 1, Platelet Estimate Normal, RBC Morphology Normal 08/04/20 06:05: Sodium 141, Potassium 4.4, Chloride 100, Carbon Dioxide 39 H, Anion Gap 6.4, BUN 41 H, Creatinine 1.10, Estimated Creat Clear 80, Estimated GFR 67, Est GFR ( Amer) 81, Glucose 208 H, Calcium 8.0 L 08/04/20 07:00: Specimen Source Right radial, O2 % 65, ABG pH 7.38, ABG pCO2 63.8 H, ABG pO2 79.2 L, ABG HCO3 36.6 H, ABG Total CO2 38.6 H, ABG O2 Saturation 95, ABG Base Excess 11.5 H, Michele Test Patient unable, Vent Rate 20, Tidal Volume 480, PEEP 8 Vital Signs - 24 hr 08/03/20 11:00 08/03/20 12:00 08/03/20 13:00 Temperature 98.7 F 97.6 F 98.3 F Pulse Rate 100 H Pulse Rate [Apical] 122 H 107 H 102 H Respiratory Rate 26 H 17 32 H Blood Pressure [Right Arm] 131/72 101/82 L 116/65 02 Sat by Pulse Oximetry 87 L 95 91 L 08/03/20 13:30 08/03/20 14:00 08/03/20 14:54 Temperature 98.5 F Pulse Rate 104 H Pulse Rate [Apical] 101 H Respiratory Rate 32 H 27 H Blood Pressure [Right Arm] 118/62 02 Sat by Pulse Oximetry 92 L 90 L 08/03/20 15:00 08/03/20 15:27 08/03/20 15:57 Temperature 98.3 F Pulse Rate 100 H Pulse Rate [Apical] 103 H 100 H Respiratory Rate 32 H 24 Blood Pressure [Right Arm] 118/67 02 Sat by Pulse Oximetry 91 L 91 L 08/03/20 16:00 08/03/20 17:00 08/03/20 17:52 Temperature 98.4 F 98.3 F Pulse Rate Pulse Rate [Apical] 106 H 109 H Respiratory Rate 31 H 31 H Blood Pressure [Right Arm] 113/64 119/70 02 Sat by Pulse Oximetry 96 92 L 93 L 08/03/20 18:00 08/03/20 18:40 08/03/20 18:56 Temperature 98.5 F Pulse Rate 100 H Pulse Rate [Apical] 111 H 105 H Respiratory Rate 29 H 25 H 27 H Blood Pressure [Right Arm] 131/71 104/63 L 02 Sat by Pulse Oximetry 92 L 94 L 96 08/03/20 20:00 08/03/20 20:57 08/03/20 22:00 Temperature 99.8 F H 98.7 F 99.4 F Pulse Rate 100 H Pulse Rate [Apical] 106 H 137 H 100 H Respiratory Rate 32 H 35 H 29 H Blood Pressure [Right Arm] 127/64 127/64 116/73 02 Sat by Pulse Oximetry 96 90 L 89 L 08/03/20 22:45 08/03/20 23:00 08/04/20 00:00 Temperature 99.3 F 98.8 F Pulse Rate 110 H Pulse Rate [Apical] 101 H 101 H Respiratory Rate 28 H 31 H 25 H Blood Pressure [Right Arm] 122/69 128/77 02 Sat by Pulse Oximetry 90 L 90 L 90 L 08/04/20 01:00 08/04/20 02:00 08/04/20 02:40 Temperature 99.8 F H 99.2 F Pulse Rate Pulse Rate [Apical] 108 H 109 H Respiratory Rate 35 H 33 H 37 H Blood Pressure [Right Arm] 118/78 136/76 02 Sat by Pulse Oximetry 90 L 88 L 89 L 08/04/20 03:00 08/04/20 04:00 08/04/20 05:00 Temperature 99.3 F 99.4 F 98.8 F Pulse Rate 110 H Pulse Rate [Apical] 108 H 110 H 114 H Respiratory Rate 37 H 33 H 39 H Blood Pressure [Right Arm] 123/71 115/68 136/78 02 Sat by Pulse Oximetry 89 L 91 L 91 L 08/04/20 06:00 08/04/20 06:30 08/04/20 06:57 Temperature 100.3 F H 99.9 F H Pulse Rate 108 H Pulse Rate [Apical] 110 H 110 H Respiratory Rate 24 25 H 24 Blood Pressure [Righ
--- NOTE | 2020-08-04 14:19 | PC.NURSE ---
pt's O2 sat hanging around 86-87% on a PEEP of 6. Called RT (Bonita), who increased PEEP back to 8. Pt's sats immediately increased to mid 90s.
--- NOTE | 2020-08-04 17:15 | PC.NURSE ---
inner trach cannula taken out and cleaned with sterile solution of 1/2 NaCl and 1/2 hydrogen peroxide. Temporary inner cannula inserted while cleaning was done. Trach tie changed and split drain gauze placed under trach plate to prevent skin breakdown. Pt's O2 sat dropped to low 80s while cleaning was performed over a couple of minutes. O2 sat returned to mid 90s after cleaned inner cannula replaced. Pt tolerated cleaning well.
--- NOTE | 2020-08-04 21:27 | PC.NURSE ---
Negra Riley contacted at this time about refills for his eye drops. Per boxes, 2 refills left at [facility]. Prescription numbers given to .
[2020-08-05] VITALS (46 sets, daily range): BP systolic 105–140; BP diastolic 64–83; PULSE 76–121; RESP 22–31; TEMP 36.3–37.3; O2SAT 90–99; BMI 24.5
--- NOTE | 2020-08-05 01:17 | PC.NURSE ---
He continues in contact and airborne precautions. Trach care provided. Thick, cream colored sections suctioned from around trach. Oral care provided q 2 hours. Generalized edema noted with 3+ pitting edema in BUE. HOB elevated 30 degrees with ambu bag available at bedside. He is being turned and repositioned q 2 hours. Vent settings are as follows: AC mode, TV 480, PEEP 8, Rate 20, FiO2 65%. F/c is patent and draining yellow, clear urine.
[2020-08-05 04:41] LABS: Basophils # 0.1 K/mm3 (0-0.2); Basophils % 0.4 % (0.1-2.0); Eosinophils # 0.1 K/mm3 (0.0-0.4); Eosinophils % 0.7 % (0.1-12.0); Lymphocytes # 0.6 K/mm3 (0.7-4.5); Lymphocytes % 4.5 % (10-50); Mean Corpuscular HGB Conc 31.9 g/dL (31.8-35.4); Mean Corpuscular Hemoglobin 29.7 pg (27.0-31.2); Mean Platelet Volume 8.6 fl (7.4-10.4); Monocytes # 0.7 K/mm3 (0.1-1.0); Monocytes % 5.1 % (1.7-9.3); Neutrophils # 11.4 K/mm3 (1.8-7.8); Neutrophils % 89.3 % (37.0-80.0); Platelet Count 180 K/mm3 (142-424); Red Blood Count 2.69 M/mm3 (4.60-6.20); Red Cell Distribution Width 16.2 % (11.5-17.5); White Blood Count 12.8 K/mm3 (4.8-10.8)
[2020-08-05 04:46] LABS: MANUAL DIFFERENTIAL MANUAL DIFFERENTIAL (MANUAL DIFF)
--- NOTE | 2020-08-05 05:00 | XR_ITS ---
PROCEDURE: XR CHEST PORTABLE CLINICAL HISTORY: Pt intubated. COMPARISON: CT CT CHEST WO CON from 07/24/2020 CR XR CHEST PORTABLE from 08/02/2020 CR XR CHEST PORTABLE from 08/03/2020 CR XR CHEST PORTABLE from 08/04/2020 FINDINGS: The tracheostomy cannula is in good position. The NG tube is seen with the tip in the upper portion of the stomach. Prominent diffuse bilateral ill-defined pneumonic infiltrates are again seen with more diffuse involvement of the left mid upper lung field on the current study than yesterday's film. There is relative sparing of the right upper lobe. Monitor lines are seen overlying the chest. IMPRESSION: Prominent diffuse bilateral pneumonic infiltrates consistent with Covid19 pneumonia. Slight interval progression of infiltrates left mid and upper lung field when compared to the recent studies. Dictated by: Dr. Robin Michaud MD 08/05/2020 09:32 Dr. Robin Michaud MD in [place] 08/05/2020 09:32
[2020-08-05 05:01] LABS: Blood Urea Nitrogen 40 mg/dl (9-20); Calcium 7.9 mg/dl (8.4-10.2); Chloride 99 mmol/L (98-107); Creatinine Clearance Estimated 79 mL/min (50-200); Estimated Glomerular Filt Rate 67 ml/min (>60); GFR (African American) 81 ML/MIN (>60); Glucose 198 mg/dl (74-100); Potassium 4.4 mmoL/L (3.5-5.1); Sodium 140 mmol/L (136-145)
[2020-08-05 05:02] LABS: Hypochromasia 1+; Lymphocytes % 6 % (10-50); Neutrophils % 86 % (42-76); Platelet Estimate Normal; Rouleaux 2+; Total Cells Counted 100
[2020-08-05 05:08] LABS: Anion Gap 6.4 mEq/L (5-15); Carbon Dioxide 39 mmol/L (22.0-30.0)
[2020-08-05 07:08] LABS: ABG Base Excess 13.4 mmol/L (-2.4-2.3); ABG Oxygen Saturation 97 % (90-100); ABG PH 7.35 mmol/L (7.35-7.45); ABG PO2 92.7 mmhg (80-100); ABG TCO2 41.2 mmhg (23-27)
[2020-08-05 07:15] LABS: Allen's Test acceptable; Oxygen 75 %; PEEP 8; Tidal Volume 480; Vent Rate 20
[2020-08-05 07:16] LABS: ABG PCO2 72.2 mmhg (35.0-45.0)
--- NOTE | 2020-08-05 07:23 | PC.NURSE ---
Dr. Chance notified of CO2 72.2
--- NOTE | 2020-08-05 08:00 | PC.NURSE ---
gastric residual 0mL. Tubefeed rate continues at goal of 46mL/hr.
[2020-08-05 08:10] LABS: POC Glucose,Bedside 219 (70-110)
[2020-08-05 08:10] LABS: POC Glucose,Bedside 170 (70-110)
[2020-08-05 08:10] LABS: POC Glucose,Bedside 194 (70-110)
[2020-08-05 08:10] LABS: POC Glucose,Bedside 195 (70-110)
[2020-08-05 09:06] LABS: Vancomycin,Trough 15.3 ug/mL (5.0-10.0)
--- NOTE | 2020-08-05 09:26 | PC.NURSE ---
received call from Dr. Myles. He ordered to cx the site around pt's trach as purulent drainage is noted around the trach site. He ordered a repeat H/H @ noon today secondary to this morning lab results. Also received order for RT to wean PEEP if O2 sat > 94%. Updated RT (Henna) and entered orders on his behalf. Will call Dr. Myles with H/H results.
--- NOTE | 2020-08-05 11:08 | HMH.ACPN2 ---
Internal Medicine - PN: Subj *Date: 08/05/20 *Time: 12:13 Interval history: No new events noted overnight. Exam Vital signs and Labs for Last 24 Hours: Temp Pulse Resp BP Pulse Ox 97.7 F 90 26 H 127/77 95 08/05/20 10:00 08/05/20 10:00 08/05/20 10:15 08/05/20 10:00 08/05/20 10:15 Laboratory Results - last 24 hr 08/04/20 11:08: POC Glucose 170 H 08/04/20 17:03: POC Glucose 194 H 08/04/20 21:32: POC Glucose 219 H 08/05/20 04:30: WBC 12.8 H, RBC 2.69 L, Hgb 8.0 L, Hct 25.0 L, MCV 93.0, MCH 29.7, MCHC 31.9, RDW 16.2, Plt Count 180, MPV 8.6, Neut % (Auto) 89.3 H, Lymph % (Auto) 4.5 L, [place] % (Auto) 5.1, Eos % (Auto) 0.7, Baso % (Auto) 0.4, Neut # (Auto) 11.4 H, Lymph # (Auto) 0.6 L, [place] # (Auto) 0.7, Eos # (Auto) 0.1, Baso # (Auto) 0.1, Total Counted 100, Neutrophils % (Manual) 86 H, Band Neutrophils % 8.0, Lymphocytes % (Manual) 6 L, Platelet Estimate Normal, Hypochromasia 1+, Rouleaux 2+ 08/05/20 04:30: Sodium 140, Potassium 4.4, Chloride 99, Carbon Dioxide 39 H, Anion Gap 6.4, BUN 40 H, Creatinine 1.10, Estimated Creat Clear 79, Estimated GFR 67, Est GFR ( Amer) 81, Glucose 198 H, Calcium 7.9 L 08/05/20 04:36: POC Glucose 195 H 08/05/20 07:00: Specimen Source r radial, O2 % 75, ABG pH 7.35, ABG pCO2 72.2 H, ABG pO2 92.7, ABG HCO3 39.0 H, ABG Total CO2 41.2 H, ABG O2 Saturation 97, ABG Base Excess 13.4 H, Michele Test acceptable, Vent Rate 20, Tidal Volume 480, PEEP 8 08/05/20 08:30: Vancomycin Trough 15.3 H Vital Signs - 24 hr 08/04/20 12:00 08/04/20 12:35 08/04/20 13:00 Temperature 98.8 F 98.6 F Pulse Rate 87 90 Pulse Rate [Apical] 89 93 H Respiratory Rate 26 H 28 H 24 Blood Pressure [Right Arm] 108/68 L 115/72 02 Sat by Pulse Oximetry 91 L 91 L 91 L 08/04/20 14:00 08/04/20 14:39 08/04/20 15:00 Temperature 98.8 F 99.0 F Pulse Rate Pulse Rate [Apical] 96 H 98 H Respiratory Rate 27 H 34 H Blood Pressure [Right Arm] 122/69 121/69 02 Sat by Pulse Oximetry 88 L 88 L 89 L 08/04/20 16:00 08/04/20 17:00 08/04/20 18:00 Temperature 98.4 F 98.8 F 98.8 F Pulse Rate 102 H Pulse Rate [Apical] 99 H 107 H 102 H Respiratory Rate 24 31 H 21 Blood Pressure [Right Arm] 132/73 134/82 122/76 02 Sat by Pulse Oximetry 92 L 92 L 92 L 08/04/20 18:58 08/04/20 19:18 08/04/20 20:00 Temperature 98.4 F 98.6 F Pulse Rate 100 H 100 H Pulse Rate [Apical] 98 H 97 H Respiratory Rate 27 H 28 H 22 Blood Pressure [Right Arm] 120/72 114/70 02 Sat by Pulse Oximetry 94 L 93 L 92 L 08/04/20 21:00 08/04/20 22:00 08/04/20 22:27 Temperature 98.8 F 98.8 F Pulse Rate Pulse Rate [Apical] 91 H 82 Respiratory Rate 22 22 31 H Blood Pressure [Right Arm] 125/76 119/74 02 Sat by Pulse Oximetry 94 L 93 L 91 L 08/04/20 22:48 08/04/20 23:00 08/05/20 00:00 Temperature 98.7 F 98.8 F Pulse Rate 90 Pulse Rate [Apical] 89 92 H Respiratory Rate 22 22 Blood Pressure [Right Arm] 131/71 118/64 02 Sat by Pulse Oximetry 92 L 93 L 94 L 08/05/20 01:00 08/05/20 02:00 08/05/20 02:13 Temperature 98.7 F 98.8 F Pulse Rate Pulse Rate [Apical] 92 H 92 H Respiratory Rate 22 22 26 H Blood Pressure [Right Arm] 128/75 132/78 02 Sat by Pulse Oximetry 93 L 94 L 90 L 08/05/20 03:00 08/05/20 03:41 08/05/20 04:00 Temperature 98.6 F 98.7 F Pulse Rate 100 H Pulse Rate [Apical] 96 H 102 H Respiratory Rate 22 24 Blood Pressure [Right Arm] 119/67 126/74 02 Sat by Pulse Oximetry 95 93 L 92 L 08/05/20 05:00 08/05/20 06:00 08/05/20 06:30 Temperature 98.6 F 98.8 F Pulse Rate 117 H Pulse Rate [Apical] 104 H 107 H Respiratory Rate 22 24 Blood Pressure [Right Arm] 131/79 131/76 02 Sat by Pulse Oximetry 94 L 94 L 99 08/05/20 07:00 08/05/20 08:00 08/05/20 09:00 Temperature 98.6 F 98.3 F 98.3 F Pulse Rate Pulse Rate [Apical] 103 H 103 H 108 H Respiratory Rate 22 28 H 23 Blood Pressure [Right Arm] 128/79 131/80 137/83 02 Sat by Pulse Oximetry 97 91 L 91 L 08/05/20 10:00 08/05/20 10:15
[2020-08-05 11:20] LABS: POC Glucose,Bedside 201 (70-110)
--- NOTE | 2020-08-05 11:48 | HMH.PHACONS ---
- Pharmacy Consult Date: 08/05/20 Time: 11:48 Referring provider: DR. HAMMOND Reason for Consult:: VANCOMYCIN TROUGH LEVEL AND INTERVAL Allergies and ADEs:: Allergies Allergy/AdvReac Type Severity Reaction Status Date / Time ceftriaxone [From Rocephin] Allergy Mild Verified 05/24/20 09:28 Home Medications:: Home Medications Medication Instructions Recorded Confirmed Type metformin 1,000 mg tablet 1,000 mg PO BID 04/08/18 06/28/20 History pantoprazole 40 mg tablet,delayed 40 mg PO DAILY 04/08/18 06/28/20 History release tamsulosin 0.4 mg capsule 0.4 mg PO DAILY 04/08/18 06/28/20 History dapagliflozin 10 mg tablet 10 mg PO DAILY 30 Days #30 tab 01/14/19 06/28/20 History Clopidogrel Bisulfate [Plavix] 75 mg PO DAILY 06/27/20 06/28/20 History Losartan Potassium [Cozaar 50mg 50 mg PO DAILY 06/27/20 06/28/20 History Tablets] Metoprolol Succinate [Metoprolol 25 mg PO DAILY 06/27/20 06/27/20 History Succinate 25mg Tablet*] Aspirin [Aspirin 81mg chewable 81 mg PO DAILY 06/28/20 06/28/20 History tab] Azithromycin 250 mg PO DAILY 06/28/20 06/28/20 History Ketorolac Tromethamine 1 drp EYE-RIGHT BID 06/28/20 06/28/20 History Prednisolone Acetate/Pf 1 drop OP BID 06/28/20 06/28/20 History [Prednisolone Acet 1% Eye Drop] Atorvastatin Calcium [Lipitor 40mg 40 mg PO DAILY 06/29/20 06/29/20 History Tab] Multivitamin 1 each PO DAILY 06/29/20 06/29/20 History Height: 1.88 m Weight: 86.682 kg Laboratory Results:: Laboratory Results - last 24 hr 08/04/20 11:08: POC Glucose 170 H 08/04/20 17:03: POC Glucose 194 H 08/04/20 21:32: POC Glucose 219 H 08/05/20 04:30: WBC 12.8 H, RBC 2.69 L, Hgb 8.0 L, Hct 25.0 L, MCV 93.0, MCH 29.7, MCHC 31.9, RDW 16.2, Plt Count 180, MPV 8.6, Neut % (Auto) 89.3 H, Lymph % (Auto) 4.5 L, [place] % (Auto) 5.1, Eos % (Auto) 0.7, Baso % (Auto) 0.4, Neut # (Auto) 11.4 H, Lymph # (Auto) 0.6 L, [place] # (Auto) 0.7, Eos # (Auto) 0.1, Baso # (Auto) 0.1, Total Counted 100, Neutrophils % (Manual) 86 H, Band Neutrophils % 8.0, Lymphocytes % (Manual) 6 L, Platelet Estimate Normal, Hypochromasia 1+, Rouleaux 2+ 08/05/20 04:30: Sodium 140, Potassium 4.4, Chloride 99, Carbon Dioxide 39 H, Anion Gap 6.4, BUN 40 H, Creatinine 1.10, Estimated Creat Clear 79, Estimated GFR 67, Est GFR ( Amer) 81, Glucose 198 H, Calcium 7.9 L 08/05/20 04:36: POC Glucose 195 H 08/05/20 07:00: Specimen Source r radial, O2 % 75, ABG pH 7.35, ABG pCO2 72.2 H, ABG pO2 92.7, ABG HCO3 39.0 H, ABG Total CO2 41.2 H, ABG O2 Saturation 97, ABG Base Excess 13.4 H, Michele Test acceptable, Vent Rate 20, Tidal Volume 480, PEEP 8 08/05/20 08:30: Vancomycin Trough 15.3 H 08/05/20 11:13: POC Glucose 201 H Medical History: Reports:: Coronary Artery Disease (Stent placement March 2018.), Diabetes Mellitus Type 2, Gastroesophageal Reflux Disease(GERD), Hyperlipidemia, Hypertension Denies:: Cancer, Diabetes Mellitus Type 1, MRSA, Pulmonary Embolism Assessment and Plan (1) Respiratory failure with hypoxia Status: Acute Qualifiers: Chronicity: acute Qualified Code(s): J96.01 - Acute respiratory failure with hypoxia Category: Medical Code(s): J96.91 - Respiratory failure, unspecified with hypoxia (2) Pneumonia due to COVID-19 virus Status: Acute Category: Medical Code(s): U07.1 - COVID-19; J12.82 - Pneumonia due to coronavirus disease 2019 (3) Anemia Status: Acute Category: Medical Code(s): D64.9 - Anemia, unspecified (4) GI bleed Status: Acute Category: Medical Code(s): K92.2 - Gastrointestinal hemorrhage, unspecified (5) Staphylococcus epidermidis bacteremia Status: Acute Category: Medical Code(s): R78.81 - Bacteremia; B95.7 - Other staphylococcus as the cause of diseases classified elsewhere (6) CAD (coronary artery disease), [place] coronary artery Status: Chronic Qualifiers: [place] vs. transplanted heart: [place] heart Associated angina: without angina Qualified Code(s): I25.10
[2020-08-05 11:55] LABS: VBG Base Excess 13.7 mmol/L (-2.4-2.3); VBG HCO3 38.2 mmol/L (23-30); VBG Oxygen Saturation 83.5 % (50-70); VBG PCO2 60.6 mmol/L (35-51); VBG PH 7.42 mmol/L (7.31-7.41); VBG PO2 46.7 mmol/L (28-40); VBG Total CO2 40.1 mmol/L (23-27)
--- NOTE | 2020-08-05 12:00 | PC.NURSE ---
gastric residual 0mL. Tubefeed rate continues at goal of 46mL/hr.
[2020-08-05 12:16] LABS: Hematocrit 24.9 % (42.0-52.0)
[2020-08-05 12:18] LABS: Hemoglobin 7.6 g/dL (14.1-18.0)
--- NOTE | 2020-08-05 12:58 | PC.NURSE ---
Notified Dr. Myles of Hgb and VBG results.
--- NOTE | 2020-08-05 13:22 | PC.NURSE ---
Received new orders from Dr. Myles: Discontinue Lovenox, place SCD on right leg for DVT prophylaxis, and wean PEEP as tolerated. Order to discontinue Lovenox faxed to pharmacy.
--- NOTE | 2020-08-05 14:42 | PC.NURSE ---
SCD applied to right leg.
--- NOTE | 2020-08-05 15:45 | PC.NURSE ---
inner trach cannula taken out and cleaned with sterile solution of 1/2 NaCl and 1/2 hydrogen peroxide. Temporary inner cannula inserted while cleaning was done. Trach tie changed and split drain gauze placed under trach plate to prevent skin breakdown. Pt tolerated cleaning well.
[2020-08-05 17:06] LABS: POC Glucose,Bedside 164 (70-110)
--- NOTE | 2020-08-05 17:34 | PC.NURSE ---
Dr. Chance notified of the following: wound cx around trach site is growing gram + cocci and blood cx is growing staph meca detected gram +. No new orders received.
[2020-08-05 22:50] LABS: POC Glucose,Bedside 172 (70-110)
--- NOTE | 2020-08-05 23:18 | PC.NURSE ---
2148- Anaya. Miguel, pharmacy contacted this rn regarding vanc trough. Pharmacy advised to hold vanc tonight and will reassess dose in am. 2315- Titrated propofol to 45 mcg/kg/min
[2020-08-06] VITALS (34 sets, daily range): BP systolic 116–146; BP diastolic 52–88; PULSE 84–117; RESP 18–34; TEMP 36.6–38.2; O2SAT 84–97; BMI 24.6
--- NOTE | 2020-08-06 | XR_ITS ---
PROCEDURE: XR CHEST PORTABLE CLINICAL HISTORY: Repositioning of PICC line COMPARISON: CT CT CHEST WO CON from 07/24/2020 CR XR CHEST PORTABLE from 08/04/2020 CR XR CHEST PORTABLE from 08/05/2020 CR XR CHEST PORTABLE PICC PLAC from 08/06/2020 FINDINGS: There has been interval repositioning a left PICC line such that the tip is now well positioned within the superior vena cava. Tracheostomy tube is again visible. Extensive bilateral patchy infiltrates and bibasilar consolidations redemonstrated. IMPRESSION: Well positioned PICC. Dictated by: Susan Jones 08/06/2020 16:45 Susan Jones in [facility] 08/06/2020 16:45
[2020-08-06 05:07] LABS: POC Glucose,Bedside 196 (70-110)
--- NOTE | 2020-08-06 06:00 | XR_ITS ---
PROCEDURE: XR CHEST PORTABLE PICC PLAC CLINICAL HISTORY: Confirm PICC line placement COMPARISON: CT CT CHEST WO CON from 07/24/2020 CR XR CHEST PORTABLE from 08/03/2020 CR XR CHEST PORTABLE from 08/04/2020 CR XR CHEST PORTABLE from 08/05/2020 CR XR CHEST PORTABLE from 08/06/2020 FINDINGS: There is been interval replacement a left central line with the new PICC. The PICC is coiled at the brachiocephalic confluence. Repositioning is necessary. Extensive bilateral infiltrates, tracheostomy tube and right basilar consolidation redemonstrated. There is no visible pneumothorax although oxygen tubing obscures the left apex. IMPRESSION: PICC curled at the confluence, repositioning is necessary. Dictated by: Susan Jones 08/06/2020 16:43 Susan Jones in [facility] 08/06/2020 16:43
--- NOTE | 2020-08-06 06:25 | PC.NURSE ---
Pt. tolerated vent well. O2 sat 88-91% t/o night. Trach care preformed with RT; thick, cream/rust colored thick sputum noted. Pt. able to open eyes and follow commands (i.e. squeeze hands). No episodes of n/v/d this shift.
[2020-08-06 06:28] LABS: Chloride 96 mmol/L (98-107); Sodium 141 mmol/L (136-145)
[2020-08-06 06:29] LABS: Potassium 4.1 mmoL/L (3.5-5.1)
[2020-08-06 06:32] LABS: Blood Urea Nitrogen 45 mg/dl (9-20); Calcium 8.1 mg/dl (8.4-10.2); Creatinine Clearance Estimated 79 mL/min (50-200); Estimated Glomerular Filt Rate 67 ml/min (>60); GFR (African American) 81 ML/MIN (>60); Glucose 202 mg/dl (74-100)
[2020-08-06 06:35] LABS: Basophils # 0.1 K/mm3 (0-0.2); Basophils % 0.4 % (0.1-2.0); Eosinophils # 0.1 K/mm3 (0.0-0.4); Eosinophils % 0.6 % (0.1-12.0); Lymphocytes # 0.6 K/mm3 (0.7-4.5); Lymphocytes % 4.3 % (10-50); Mean Corpuscular HGB Conc 32.2 g/dL (31.8-35.4); Mean Corpuscular Hemoglobin 28.9 pg (27.0-31.2); Mean Corpuscular Volume 89.8 fl (80-94); Mean Platelet Volume 7.9 fl (7.4-10.4); Monocytes # 0.8 K/mm3 (0.1-1.0); Neutrophils # 11.4 K/mm3 (1.8-7.8); Neutrophils % 88.7 % (37.0-80.0); Platelet Count 168 K/mm3 (142-424); Red Blood Count 3.34 M/mm3 (4.60-6.20); Red Cell Distribution Width 17.3 % (11.5-17.5); White Blood Count 12.9 K/mm3 (4.8-10.8)
[2020-08-06 06:49] LABS: Hemoglobin 9.6 g/dL (14.1-18.0); MANUAL DIFFERENTIAL MANUAL DIFFERENTIAL (MANUAL DIFF)
[2020-08-06 07:17] LABS: ABG Base Excess 17.2 mmol/L (-2.4-2.3); ABG HCO3 42.2 mmhg (22.0-26.0); ABG Oxygen Saturation 94 % (90-100); ABG PH 7.39 mmol/L (7.35-7.45); ABG PO2 72.1 mmhg (80-100); ABG TCO2 44.4 mmhg (23-27)
[2020-08-06 07:18] LABS: Allen's Test Patient Unable; Oxygen 70 %; PEEP 8; Source Right Radial; Tidal Volume 480; Vent Rate 20
[2020-08-06 07:20] LABS: ABG PCO2 71.8 mmhg (35.0-45.0)
[2020-08-06 07:26] LABS: Anion Gap 7.1 mEq/L (5-15); Carbon Dioxide 42 mmol/L (22.0-30.0)
--- NOTE | 2020-08-06 08:07 | CA_ITS ---
APPROVED REPORT EXAM: Comprehensive 2D, Doppler, and color-flow Echocardiogram University Tutor: Hortensia Jacobs RT(R) Ht: 6 ft 0 in Wt: 193lbs BSA: 2.10 BP: 131/80 mmHg Indications: Covid-19 Pneumonia, followup echo 2D Dimensions IVSd 0.90 cm M: 0.6-1.2 LA Volume 46.50 mL PWd 0.80 cm M: 0.6 - 1.2 LA Volume Index 22.14 mL/m2 (M/F) 16-34 LVDd 4.40 cm M: 4.2 - 5.9 LVDs 3.64 cm M: 2.5 - 4.0 LVOT 2.12 cm (M/F) 1.5-2.5 M-Mode Dimensions Ao Diam 3.59 cm (2.0-3.7) TAPSE 2.15 (<1.7) LV Diastology E Decel Time 250.00 (160-240 msec) E/A Ratio 0.8 Aortic Valve AO Peak GR. 8.30 mmHg Mitral Valve MV E Max Dick. 56.00 (40-130 cm/s) MV A Velocity 73.00 (40-130 cm/s) E/A Ratio 0.77 MV Decel. Time 250.00 (160-240 ms) MV PHT 73.00 ms Pulmonary Valve PV Peak Velocity 44.00 (50-150 cm/s) Tricuspid Valve TR P. Velocity 261.00 cm/s RAP Estimate 15.00 mmHg RVSP 42.20 mmHg Left Ventricle Left atrium is mildly enlarged, left ventricle is normal size, visually estimated ejection fraction 55% with no regional wall motion abnormality, diastolic parameters are inconclusive. Right Ventricle Right atrium and right ventricle are mildly enlarged with normal contractility. Aortic Valve Aortic valve is minimally thickened and fibrosed, there is no aortic stenosis or aortic insufficiency. Mitral Valve Mitral valve leaflets are minimally thickened, there is mild mitral regurgitation. Tricuspid Valve Tricuspid valve is grossly normal, there is mild tricuspid regurgitation. Tricuspid regurgitation jet velocity is inadequate for calculation of the right ventricular systolic pressure. Pulmonic Valve Pulmonic valve is poorly visualized. Great Vessels Aortic root is normal size. Pericardium No significant pericardial effusion noted. Conclusion 1. Mild biatrial enlargement, normal left ventricular size, visually estimated ejection fraction 55% with no regional wall motion abnormality, diastolic parameters are inconclusive. 2. Mildly enlarged right ventricle with normal contractility. 3. No significant pericardial effusion noted. Electronically signed by : Ollie Guerrero, 08/06/2020 20:54:41
[2020-08-06 08:17] LABS: Hypochromasia 1+; Lymphocytes % 14 % (10-50); Macrocytosis 1+; Neutrophils % 86 % (42-76); Total Cells Counted 100
[2020-08-06 08:18] LABS: Platelet Estimate Normal
--- NOTE | 2020-08-06 08:25 | HMH.ACPN2 ---
Internal Medicine - PN: Subj *Date: 08/06/20 *Time: 09:18 Interval history: No new events noted overnight. Exam Vital signs and Labs for Last 24 Hours: Temp Pulse Resp BP Pulse Ox 98.7 F 111 H 24 128/52 L 93 L 08/06/20 06:54 08/06/20 06:54 08/06/20 06:54 08/06/20 06:54 08/06/20 06:54 Laboratory Results - last 24 hr 08/05/20 08:30: Vancomycin Trough 15.3 H 08/05/20 08:44: VBG pH 7.42 H, VBG pCO2 60.6 H, VBG pO2 46.7 H, VBG HCO3 38.2 H, VBG Total CO2 40.1 H, VBG O2 Saturation 83.5 H, VBG Base Excess 13.7 H 08/05/20 11:13: POC Glucose 201 H 08/05/20 12:00: Hgb 7.6 L*, Hct 24.9 L 08/05/20 13:00: Blood Type B Positive, Antibody Screen Negative, Crossmatch (AHG) See Detail 08/05/20 17:00: POC Glucose 164 H 08/05/20 20:35: POC Glucose 172 H 08/06/20 04:59: POC Glucose 196 H 08/06/20 05:55: WBC 12.9 H, RBC 3.34 L, Hgb 9.6 L D, Hct 30.0 L, MCV 89.8, MCH 28.9, MCHC 32.2, RDW 17.3, Plt Count 168, MPV 7.9, Neut % (Auto) 88.7 H, Lymph % (Auto) 4.3 L, [place] % (Auto) 6.0, Eos % (Auto) 0.6, Baso % (Auto) 0.4, Neut # (Auto) 11.4 H, Lymph # (Auto) 0.6 L, [place] # (Auto) 0.8, Eos # (Auto) 0.1, Baso # (Auto) 0.1, Total Counted 100, Neutrophils % (Manual) 86 H, Lymphocytes % (Manual) 14, Platelet Estimate Normal, RBC Morphology Not Reportable, Hypochromasia 1+, Macrocytosis 1+ 08/06/20 05:55: Sodium 141, Potassium 4.1, Chloride 96 L, Carbon Dioxide 42 H*, Anion Gap 7.1, BUN 45 H, Creatinine 1.10, Estimated Creat Clear 79, Estimated GFR 67, Est GFR ( Amer) 81, Glucose 202 H, Calcium 8.1 L 08/06/20 07:00: Specimen Source Right radial, O2 % 70, ABG pH 7.39, ABG pCO2 71.8 H, ABG pO2 72.1 L, ABG HCO3 42.2 H, ABG Total CO2 44.4 H, ABG O2 Saturation 94, ABG Base Excess 17.2 H, Michele Test Patient unable, Vent Rate 20, Tidal Volume 480, PEEP 8 Vital Signs - 24 hr 08/05/20 09:00 08/05/20 10:00 08/05/20 10:15 Temperature 98.3 F 97.7 F Pulse Rate Pulse Rate [Apical] 108 H 90 Respiratory Rate 23 22 26 H Blood Pressure Blood Pressure [Right Arm] 137/83 127/77 02 Sat by Pulse Oximetry 91 L 96 95 08/05/20 11:00 08/05/20 12:00 08/05/20 12:45 Temperature 97.3 F L 97.5 F L Pulse Rate 80 96 H Pulse Rate [Apical] 76 89 Respiratory Rate 26 H 27 H Blood Pressure Blood Pressure [Right Arm] 126/73 132/76 02 Sat by Pulse Oximetry 91 L 90 L 08/05/20 13:00 08/05/20 14:00 08/05/20 14:43 Temperature 97.9 F 97.9 F Pulse Rate Pulse Rate [Apical] 90 97 H Respiratory Rate 27 H 28 H 30 H Blood Pressure Blood Pressure [Right Arm] 136/76 133/78 02 Sat by Pulse Oximetry 94 L 92 L 96 08/05/20 14:45 08/05/20 14:50 08/05/20 14:55 Temperature 98.5 F 98.6 F 98.5 F Pulse Rate 96 H 97 H 99 H Pulse Rate [Apical] Respiratory Rate 27 H 28 H 27 H Blood Pressure 125/77 125/78 126/78 Blood Pressure [Right Arm] 02 Sat by Pulse Oximetry 91 L 92 L 91 L 08/05/20 15:00 08/05/20 15:15 08/05/20 15:30 Temperature 98.6 F 98.6 F 98.6 F Pulse Rate 97 H 96 H 95 H Pulse Rate [Apical] Respiratory Rate 28 H 28 H 28 H Blood Pressure 128/76 121/74 124/72 Blood Pressure [Right Arm] 02 Sat by Pulse Oximetry 91 L 92 L 93 L 08/05/20 15:45 08/05/20 16:00 08/05/20 16:45 Temperature 98.5 F 98.1 F 99.0 F Pulse Rate 98 H 90 102 H Pulse Rate [Apical] 97 H Respiratory Rate 28 H 28 H 29 H Blood Pressure 127/75 120/73 Blood Pressure [Right Arm] 120/73 02 Sat by Pulse Oximetry 92 L 91 L 90 L 08/05/20 16:50 08/05/20 16:55 08/05/20 17:00 Temperature 99.1 F 99.1 F 99.1 F Pulse Rate 102 H 104 H 104 H Pulse Rate [Apical] Respiratory Rate 28 H 28 H 27 H Blood Pressure 121/74 121/74 127/73 Blood Pressure [Right Arm] 02 Sat by Pulse Oximetry 91 L 90 L 90 L 08/05/20 17:05 08/05/20 17:20 08/05/20 17:35 Temperature 99.1 F 99.0 F 99.0 F Pulse Rate 102 H 104 H 105 H Pulse Rate [Apical] Respiratory Rate 28 H 27 H 27 H Blood Pressure 127/74 127/76 121/66 Blood Pressure [Right Arm] 02 Sat by Pulse Oximetry 90 L 91
[2020-08-06 10:06] LABS: VBG Base Excess 17.6 mmol/L (-2.4-2.3); VBG HCO3 41.4 mmol/L (23-30); VBG Oxygen Saturation 79.2 % (50-70); VBG PCO2 59.6 mmol/L (35-51); VBG PH 7.46 mmol/L (7.31-7.41); VBG PO2 40.5 mmol/L (28-40); VBG Total CO2 43.3 mmol/L (23-27)
--- NOTE | 2020-08-06 12:06 | PC.NURSE ---
Spoke with preop at 1110 in regards to pt not having a preop antibiotic ordered. Leonid spoke with Dr Adams. Clindamycin to be given as preop, go ahead and give zyvox now.
--- NOTE | 2020-08-06 13:11 | HMH.PULMPN ---
Internal Medicine - PN: Subj *Date: 08/06/20 *Time: 13:11 Interval history: No acute respiratory events overnight Exam - Constitutional Constitutional:: Present: no acute distress - HENMT Exam HENMT: Present: normocephalic, atraumatic - Neck Exam Neck:: Present: thyroid normal, no lymphadenopathy, full ROM - Respiratory Exam Respiratory:: Present: crackles - Cardiovascular Exam Cardiac:: Present: S1, S2 - GI Exam GI:: Present: soft - Skin Exam Skin: Present: warm, no rash - Neurological Exam Neurological: Absent: alert, awake, normal cognition - Extremities Exam Extremities: Present: no cyanosis, no clubbing, edema Assessment and Plan (1) Respiratory failure with hypoxia Status: Acute Qualifiers: Chronicity: acute Qualified Code(s): J96.01 - Acute respiratory failure with hypoxia Category: Medical Code(s): J96.91 - Respiratory failure, unspecified with hypoxia (2) Pneumonia due to COVID-19 virus Status: Acute Category: Medical Code(s): U07.1 - COVID-19; J12.82 - Pneumonia due to coronavirus disease 2019 (3) Anemia Status: Acute Category: Medical Code(s): D64.9 - Anemia, unspecified (4) GI bleed Status: Acute Category: Medical Code(s): K92.2 - Gastrointestinal hemorrhage, unspecified (5) Staphylococcus epidermidis bacteremia Status: Acute Category: Medical Code(s): R78.81 - Bacteremia; B95.7 - Other staphylococcus as the cause of diseases classified elsewhere (6) CAD (coronary artery disease), [place] coronary artery Status: Chronic Qualifiers: [place] vs. transplanted heart: [place] heart Associated angina: without angina Qualified Code(s): I25.10 - Atherosclerotic heart disease of [place] coronary artery without angina pectoris Category: Medical Code(s): I25.10 - Atherosclerotic heart disease of [place] coronary artery without angina pectoris (7) DM2 (diabetes mellitus, type 2) Status: Chronic Qualifiers: Diabetes mellitus halfway insulin use: without halfway use Diabetes mellitus complication status: without complication Qualified Code(s): E11.9 - Type 2 diabetes mellitus without complications Category: Medical Code(s): E11.9 - Type 2 diabetes mellitus without complications (8) History of left below knee amputation Status: Chronic Category: Medical Code(s): Z89.512 - Acquired absence of left leg below knee (9) History of osteomyelitis Status: Chronic Category: Medical Code(s): Z87.39 - Personal history of other diseases of the musculoskeletal system and connective tissue (10) Sepsis Status: Acute Qualifiers: Sepsis type: sepsis due to unspecified organism Sepsis acute organ dysfunction status: with acute organ dysfunction Severe sepsis acute organ dysfunction type: acute respiratory failure Acute respiratory failure type: with hypoxia Severe sepsis shock status: with septic shock Qualified Code(s): A41.9 - Sepsis, unspecified organism; R65.21 - Severe sepsis with septic shock; J96.01 - Acute respiratory failure with hypoxia Category: Medical Code(s): A41.9 - Sepsis, unspecified organism (11) Elevated LFTs Status: Acute Category: Medical Code(s): R79.89 - Other specified abnormal findings of blood chemistry (12) Staphylococcal meningitis Status: Acute Category: Medical Code(s): G00.3 - Staphylococcal meningitis - Assessment and plan all Dx Assessment and Plan for all problems:: #COVID-19 pneumonia: #Acute hypoxic respiratory failure requiring mechanical ventilation: 69-year-old no prior respiratory complaints never smoker with recent diagnosis of COVID-19 present with worsening respiratory failure cough and productive phlegm. CT showed bilateral diffuse pulmonary infiltrates. No evidence of acute pulmonary embolism. Patient respiratory status gradually worsened throughout his hospital course with increasing oxygen requirements to BiPAP,. Patient was initially DNR/DNI
--- NOTE | 2020-08-06 14:56 | HMH.PROC ---
[facility] Procedure Note Procedure Note:: Upper Endoscopy Procedure Report: Esophagogastroduodenoscopy with percutaneous endoscopic gastrostomy tube placement Endoscopost: Jian Adams II, MD Referring Physician: Byron Chance MD Date of Procedure: August 06, 2020 Equipment: Olympus GIF 180 standard upper endoscope Sedation: MAC sedation Indications: Mr. Riley is a 69-year-old gentleman with Covid?19 and pulmonary failure. He has had tracheostomy. He has had an NG tube in place and consultation was placed for PEG placement/gastrostomy placement. He formerly did have an upper GI bleed from a stress gastric ulcer. Procedure: Prior to the procedure, a history and physical exam was performed, and patient's medications and allergies were reviewed. The risks, benefits and alternatives of the sedation and procedure were discussed with the patient. All questions were answered and informed consent was obtained. The patient was brought to the procedure room. Patient identification and proposed procedure were verified by the physician and the nurse. The patient was placed in a left lateral decubitus position and the scope was passed under direct vision. Throughout the procedure, the patient's blood pressure, pulse, and oxygen saturations were monitored continuously. The upper GI endoscopy was accomplished without difficulty. The patient tolerated the procedure well. Findings: The scope was passed directly into the upper esophagus and advanced to the third portion of the duodenum. The post bulbar duodenum and duodenal bulb were normal with normal mucosa and conniventes. The scope was withdrawn through a normal bulb into the stomach. There was some gastropathy with bile reflux. There was healing of the ulceration. There was no heme identified. The esophagus was normal. Next, 1-1 transillumination and percutaneous compression at this spot indicated proper placement for a G-tube. This area along the skin was marked appropriately. Next, this area was prepped and draped in sterile fashion. 1% lidocaine then was used to anesthetize into the gastric lumen. Next, the needle catheter was placed percutaneously into the gastric lumen through this spot. The needle was then removed and the placement guidewire was then advanced through the catheter into the gastric lumen. Next, a snare was used to grasp this guidewire endoscopically and the wire was pulled in a retrograde fashion out the esophagus and oropharynx. Next, the 20 [place] button PEG was placed on the guidewire and pulled in an anterograde fashion snugly against the gastric mucosa. The abdominal wall percutaneous incision had some active venous oozing of blood and 4 x 4 gauze was applied with pressure to provide hemostasis. Also, initially, the wire broke from the catheter. The upper endoscope then was advanced into the gastric lumen to confirm proper placement along the anterior wall of the body of the stomach. There was no heme identified within. After confirmation, the PEG was assembled appropriately. Impression: 1. Feeding difficulties status post 20 [place] button PEG placement Plan: I will discuss initiation of feeding with ICU nurse. I would begin medications and water through the tube this evening and then initiate tube feedings in the morning.
--- NOTE | 2020-08-06 14:57 | PC.NURSE ---
pt off of the unit with surgery for PEG tube and PICC line placement. at 1437
--- NOTE | 2020-08-06 15:08 | SUR.PHASEII ---
PT TRANSPORTED VIA BED TO ICU. PT TRANSPORTED BY Davian ORTIZ CRNA, RN, KATJA SAPP MECHANICAL TECHNICIAN. PT STABLE. PT TRANSPORTED ON VENT WITH Deni SAPP MECHANICAL TECHNICIAN AT BEDSIDE. BEDSIDE REPORT GIVEN TO HAYDE MCKENZIE RN .
--- NOTE | 2020-08-06 16:51 | PC.NURSE ---
Received report from Dr Jones at this time. PICC line is in perfect position
[2020-08-07] VITALS (36 sets, daily range): BP systolic 102–128; BP diastolic 62–75; PULSE 71–120; RESP 18–29; TEMP 36.2–37.5; O2SAT 87–99; BMI 24.5
--- NOTE | 2020-08-07 03:14 | PC.NURSE ---
Pt arousable to light shaking. eyes open, but pt unable to squeeze hands or move feet. Vent settings tolerated well at Fi02 of 75, TV 480, PEEP 6, RR18. PEG tube in place, patent, skin around is dry, no discharge noted. Oral care done q2h and prn. turned q2h, heel and BKA floated, heel protector over right leg. Trach care performed. drsg over coccyx c/d/i. VSS, no concerns at this time.
[2020-08-07 05:57] LABS: Basophils % 0.1 % (0.1-2.0); Hematocrit 27.6 % (42.0-52.0); Hemoglobin 8.9 g/dL (14.1-18.0); Lymphocytes # 0.2 K/mm3 (0.7-4.5); Lymphocytes % 2.3 % (10-50); Mean Corpuscular HGB Conc 32.1 g/dL (31.8-35.4); Mean Corpuscular Hemoglobin 28.3 pg (27.0-31.2); Mean Corpuscular Volume 88.2 fl (80-94); Mean Platelet Volume 8.7 fl (7.4-10.4); Monocytes # 0.5 K/mm3 (0.1-1.0); Monocytes % 4.9 % (1.7-9.3); Neutrophils # 9.4 K/mm3 (1.8-7.8); Neutrophils % 92.7 % (37.0-80.0); Platelet Count 168 K/mm3 (142-424); Red Blood Count 3.13 M/mm3 (4.60-6.20); Red Cell Distribution Width 16.2 % (11.5-17.5); White Blood Count 10.2 K/mm3 (4.8-10.8)
[2020-08-07 06:03] LABS: Chloride 97 mmol/L (98-107); Potassium 4.4 mmoL/L (3.5-5.1); Sodium 141 mmol/L (136-145)
[2020-08-07 06:05] LABS: MANUAL DIFFERENTIAL MANUAL DIFFERENTIAL (MANUAL DIFF)
[2020-08-07 06:06] LABS: Alanine Aminotransferase 46 U/L (12-78); Albumin Level 2.5 g/dl (3.5-5.0); Albumin/Globulin Ratio 0.7 (1.1-1.8); Alkaline Phosphatase 89 U/L (38-126); Aspartate Amino Transferase 26 U/L (17-59); Bilirubin,Total 0.4 mg/dl (0.2-1.3); Blood Urea Nitrogen 46 mg/dl (9-20); Creatinine Clearance Estimated 72 mL/min (50-200); Estimated Glomerular Filt Rate 60 ml/min (>60); GFR (African American) 73 ML/MIN (>60); Globulin 3.5 g/dL (1.3-3.2); Glucose 174 mg/dl (74-100)
[2020-08-07 06:14] LABS: Anion Gap 4.4 mEq/L (5-15); Carbon Dioxide 44 mmol/L (22.0-30.0)
--- NOTE | 2020-08-07 07:00 | XR_ITS ---
PROCEDURE: XR CHEST PORTABLE CLINICAL HISTORY: F/U pneumonia COMPARISON: CT CT CHEST WO CON from 07/24/2020 CR XR CHEST PORTABLE from 08/05/2020 CR XR CHEST PORTABLE PICC PLAC from 08/06/2020 CR XR CHEST PORTABLE from 08/06/2020 FINDINGS: Well-expanded. The tracheostomy cannula is in good position. The left-sided PICC line is again noted with the tip at the junction of the SVC and right atrium. Prominent diffuse patchy ill-defined pneumonic infiltrates are again seen in both lung loja most prominent right perihilar region and right lower lobe there has been some slight interval improvement in the left upper lung field when compared to recent studies. IMPRESSION: Persistent extensive bilateral pneumonic infiltrates though showing slight interval improvement left upper lobe Dictated by: Dr. Robin Michaud MD 08/07/2020 09:12 Dr. Robin Michaud MD in [facility] 08/07/2020 09:12
[2020-08-07 07:02] LABS: ABG Base Excess 16.2 mmol/L (-2.4-2.3); ABG HCO3 41.1 mmhg (22.0-26.0); ABG Oxygen Saturation 96 % (90-100); ABG PO2 80.4 mmhg (80-100); ABG TCO2 43.2 mmhg (23-27)
[2020-08-07 07:04] LABS: ABG PCO2 68.5 mmhg (35.0-45.0); Allen's Test acceptable; Oxygen 70 %; PEEP 6; Tidal Volume 480; Vent Rate 18
[2020-08-07 08:21] LABS: Lymphocytes % 7 % (10-50); Monocytes % 2 % (2-9); Neutrophils % 91 % (42-76); Platelet Estimate Normal; RBC Morphology Normal; Total Cells Counted 100
[2020-08-07 08:32] LABS: POC Glucose,Bedside 174 (70-110)
[2020-08-07 08:32] LABS: POC Glucose,Bedside 263 (70-110)
[2020-08-07 08:32] LABS: POC Glucose,Bedside 166 (70-110)
[2020-08-07 08:32] LABS: POC Glucose,Bedside 199 (70-110)
--- NOTE | 2020-08-07 09:37 | HMH.PULMPN ---
Internal Medicine - PN: Subj *Date: 08/07/20 *Time: 10:45 Interval history: No acute respiratory events overnight. Patient FiO2 increased to 75%. Patient had a PEG tube placement. Exam - Constitutional Constitutional:: Present: comfortable - HENMT Exam HENMT: Present: normocephalic, atraumatic - Eye Exam Eyes:: Present: eyelids normal - Neck Exam Neck:: Present: normal visual inspection, thyroid normal - Respiratory Exam Respiratory:: Present: crackles - Cardiovascular Exam Cardiac:: Present: S1, S2 - GI Exam GI:: Present: soft - Skin Exam Skin: Present: warm, no rash - Neurological Exam Neurological: Absent: alert, awake, normal cognition - Extremities Exam Extremities: Present: no cyanosis, no clubbing, edema Assessment and Plan (1) Respiratory failure with hypoxia Status: Acute Qualifiers: Chronicity: acute Qualified Code(s): J96.01 - Acute respiratory failure with hypoxia Category: Medical Code(s): J96.91 - Respiratory failure, unspecified with hypoxia (2) Pneumonia due to COVID-19 virus Status: Acute Category: Medical Code(s): U07.1 - COVID-19; J12.82 - Pneumonia due to coronavirus disease 2019 (3) Anemia Status: Acute Category: Medical Code(s): D64.9 - Anemia, unspecified (4) GI bleed Status: Acute Category: Medical Code(s): K92.2 - Gastrointestinal hemorrhage, unspecified (5) Staphylococcus epidermidis bacteremia Status: Acute Category: Medical Code(s): R78.81 - Bacteremia; B95.7 - Other staphylococcus as the cause of diseases classified elsewhere (6) CAD (coronary artery disease), [place] coronary artery Status: Chronic Qualifiers: [place] vs. transplanted heart: [place] heart Associated angina: without angina Qualified Code(s): I25.10 - Atherosclerotic heart disease of [place] coronary artery without angina pectoris Category: Medical Code(s): I25.10 - Atherosclerotic heart disease of [place] coronary artery without angina pectoris (7) DM2 (diabetes mellitus, type 2) Status: Chronic Qualifiers: Diabetes mellitus prison insulin use: without prison use Diabetes mellitus complication status: without complication Qualified Code(s): E11.9 - Type 2 diabetes mellitus without complications Category: Medical Code(s): E11.9 - Type 2 diabetes mellitus without complications (8) History of left below knee amputation Status: Chronic Category: Medical Code(s): Z89.512 - Acquired absence of left leg below knee (9) History of osteomyelitis Status: Chronic Category: Medical Code(s): Z87.39 - Personal history of other diseases of the musculoskeletal system and connective tissue (10) Sepsis Status: Acute Qualifiers: Sepsis type: sepsis due to unspecified organism Sepsis acute organ dysfunction status: with acute organ dysfunction Severe sepsis acute organ dysfunction type: acute respiratory failure Acute respiratory failure type: with hypoxia Severe sepsis shock status: with septic shock Qualified Code(s): A41.9 - Sepsis, unspecified organism; R65.21 - Severe sepsis with septic shock; J96.01 - Acute respiratory failure with hypoxia Category: Medical Code(s): A41.9 - Sepsis, unspecified organism (11) Elevated LFTs Status: Acute Category: Medical Code(s): R79.89 - Other specified abnormal findings of blood chemistry (12) Staphylococcal meningitis Status: Acute Category: Medical Code(s): G00.3 - Staphylococcal meningitis - Assessment and plan all Dx Assessment and Plan for all problems:: #COVID-19 pneumonia: #Acute hypoxic respiratory failure requiring mechanical ventilation: 69-year-old no prior respiratory complaints never smoker with recent diagnosis of COVID-19 present with worsening respiratory failure cough and productive phlegm. CT showed bilateral diffuse pulmonary infiltrates. No evidence of acute pulmonary embolism. Patient respiratory status gradually worsened throu
--- NOTE | 2020-08-07 09:43 | HMH.ACPN2 ---
Internal Medicine - PN: Subj *Date: 08/07/20 *Time: 09:55 Interval history: No events noted overnight. Pt had PEG tube and PICC line placed yesterday, triple lumen catheter and NG tube were removed. Exam Vital signs and Labs for Last 24 Hours: Temp Pulse Resp BP Pulse Ox 97.9 F 91 H 20 128/73 93 L 08/07/20 09:00 08/07/20 09:00 08/07/20 09:00 08/07/20 09:00 08/07/20 09:00 Laboratory Results - last 24 hr 08/06/20 08:59: VBG pH 7.46 H, VBG pCO2 59.6 H, VBG pO2 40.5 H, VBG HCO3 41.4 H, VBG Total CO2 43.3 H, VBG O2 Saturation 79.2 H, VBG Base Excess 17.6 H 08/06/20 11:41: POC Glucose 174 H 08/06/20 17:46: POC Glucose 199 H 08/06/20 22:36: POC Glucose 263 H 08/07/20 04:45: WBC 10.2, RBC 3.13 L, Hgb 8.9 L, Hct 27.6 L, MCV 88.2, MCH 28.3, MCHC 32.1, RDW 16.2, Plt Count 168, MPV 8.7, Neut % (Auto) 92.7 H, Lymph % (Auto) 2.3 L, [place] % (Auto) 4.9, Eos % (Auto) 0.0 L, Baso % (Auto) 0.1, Neut # (Auto) 9.4 H, Lymph # (Auto) 0.2 L, [place] # (Auto) 0.5, Eos # (Auto) 0.0, Baso # (Auto) 0.0, Total Counted 100, Neutrophils % (Manual) 91 H, Lymphocytes % (Manual) 7 L, Monocytes % (Manual) 2, Platelet Estimate Normal, RBC Morphology Normal 08/07/20 04:45: Sodium 141, Potassium 4.4, Chloride 97 L, Carbon Dioxide 44 H*, Anion Gap 4.4 L, BUN 46 H, Creatinine 1.20, Estimated Creat Clear 72, Estimated GFR 60, Est GFR ( Amer) 73, Glucose 174 H, Calcium 8.0 L, Total Bilirubin 0.4, AST 26, ALT 46, Alkaline Phosphatase 89, Total Protein 6.0 L, Albumin 2.5 L, Globulin 3.5 H, Albumin/Globulin Ratio 0.7 L 08/07/20 04:46: POC Glucose 166 H 08/07/20 07:00: Specimen Source r radial, O2 % 70, ABG pH 7.40, ABG pCO2 68.5 H, ABG pO2 80.4, ABG HCO3 41.1 H, ABG Total CO2 43.2 H, ABG O2 Saturation 96, ABG Base Excess 16.2 H, Michele Test acceptable, Vent Rate 18, Tidal Volume 480, PEEP 6 Vital Signs - 24 hr 08/06/20 09:57 08/06/20 10:00 08/06/20 11:00 Temperature Pulse Rate 98 H Pulse Rate [Apical] 86 84 Respiratory Rate 23 18 22 Blood Pressure [Right Arm] 140/81 124/73 02 Sat by Pulse Oximetry 87 L 84 L 84 L 08/06/20 11:57 08/06/20 12:00 08/06/20 13:00 Temperature 98.6 F Pulse Rate 89 90 Pulse Rate [Apical] 102 H 100 H Respiratory Rate 22 Blood Pressure [Right Arm] 129/82 138/77 02 Sat by Pulse Oximetry 92 L 91 L 08/06/20 14:01 08/06/20 14:55 08/06/20 15:05 Temperature 97.8 F 97.8 F Pulse Rate Pulse Rate [Apical] 98 H 94 H 100 H Respiratory Rate 22 24 18 Blood Pressure [Right Arm] 129/82 126/74 126/74 02 Sat by Pulse Oximetry 92 L 94 L 95 08/06/20 15:08 08/06/20 16:00 08/06/20 16:09 Temperature Pulse Rate 100 H Pulse Rate [Apical] 98 H 105 H Respiratory Rate 22 28 H Blood Pressure [Right Arm] 131/75 02 Sat by Pulse Oximetry 90 L 95 91 L 08/06/20 17:00 08/06/20 18:00 08/06/20 19:00 Temperature 98.6 F Pulse Rate Pulse Rate [Apical] 106 H 104 H 100 H Respiratory Rate 22 20 18 Blood Pressure [Right Arm] 122/70 146/88 H 02 Sat by Pulse Oximetry 97 97 95 08/06/20 20:00 08/06/20 20:35 08/06/20 21:00 Temperature 99.7 F H 99.7 F H Pulse Rate 100 H 111 H Pulse Rate [Apical] 103 H 111 H Respiratory Rate 33 H 31 H Blood Pressure [Right Arm] 140/83 129/78 02 Sat by Pulse Oximetry 92 L 92 L 92 L 08/06/20 21:22 08/06/20 22:00 08/06/20 23:00 Temperature 100.7 F H 98.5 F Pulse Rate Pulse Rate [Apical] 117 H 106 H Respiratory Rate 30 H 34 H 33 H Blood Pressure [Right Arm] 132/76 125/77 02 Sat by Pulse Oximetry 92 L 90 L 08/07/20 00:00 08/07/20 01:00 08/07/20 02:00 Temperature 99.5 F 98.5 F Pulse Rate 120 H Pulse Rate [Apical] 104 H 96 H 93 H Respiratory Rate 26 H 22 Blood Pressure [Right Arm] 117/75 113/67 106/67 L 02 Sat by Pulse Oximetry 92 L 96 94 L 08/07/20 02:45 08/07/20 03:00 08/07/20 04:00 Temperature 98.5 F 98.8 F Pulse Rate 90 Pulse Rate [Apical] 85 85 Respiratory Rate 29 H 22 21 Blood Pressure [Right Arm] 111/65 122/67 02 Sat by Pulse Oximetry 9
--- NOTE | 2020-08-07 10:44 | CA_ITS ---
APPROVED REPORT EXAM: Comprehensive 2D, Doppler, and color-flow Echocardiogram Hazmat Cdl A Driver: Joy Metzger RCS, RVS Ht: 6 ft 2 in Wt: 191lbs BSA: 2.13 BP: 110/70 mmHg Indications: COVID-19 pneumonia evaluate for shunt Echo Enhancing Agent Comments: no shunt detected Conclusion 1. Limited saline contrast study was performed to evaluate for intracardiac shunt, agitated saline contrast study suboptimal to detect intracardiac shunt. Electronically signed by : Ollie Guerrero, 08/07/2020 19:56:59
[2020-08-07 11:48] LABS: POC Glucose,Bedside 183 (70-110)
[2020-08-07 12:24] LABS: D-Dimer 2.58 ug/mL (0.0-0.5)
[2020-08-07 17:35] LABS: POC Glucose,Bedside 182 (70-110)
[2020-08-07 21:19] LABS: POC Glucose,Bedside 179 (70-110)
[2020-08-08] VITALS (33 sets, daily range): BP systolic 102–142; BP diastolic 58–80; PULSE 85–113; RESP 18–32; TEMP 36.6–37.9; O2SAT 85–95; BMI 24.8
[2020-08-08 04:53] LABS: POC Glucose,Bedside 170 (70-110)
[2020-08-08 04:58] LABS: Basophils % 0.1 % (0.1-2.0); Hematocrit 27.9 % (42.0-52.0); Hemoglobin 8.9 g/dL (14.1-18.0); Lymphocytes # 0.6 K/mm3 (0.7-4.5); Lymphocytes % 3.8 % (10-50); Mean Corpuscular HGB Conc 31.7 g/dL (31.8-35.4); Mean Corpuscular Hemoglobin 28.7 pg (27.0-31.2); Mean Corpuscular Volume 90.4 fl (80-94); Mean Platelet Volume 8.3 fl (7.4-10.4); Monocytes % 6.4 % (1.7-9.3); Neutrophils # 14.2 K/mm3 (1.8-7.8); Neutrophils % 89.6 % (37.0-80.0); Platelet Count 226 K/mm3 (142-424); Red Blood Count 3.09 M/mm3 (4.60-6.20); Red Cell Distribution Width 16.3 % (11.5-17.5); White Blood Count 15.9 K/mm3 (4.8-10.8)
[2020-08-08 04:59] LABS: Chloride 98 mmol/L (98-107); Potassium 3.9 mmoL/L (3.5-5.1); Sodium 143 mmol/L (136-145)
--- NOTE | 2020-08-08 05:00 | XR_ITS ---
PROCEDURE: XR CHEST PORTABLE CLINICAL HISTORY: Pt on ventilator COMPARISON: CT CT CHEST WO CON from 07/24/2020 CR XR CHEST PORTABLE PICC PLAC from 08/06/2020 CR XR CHEST PORTABLE from 08/06/2020 CR XR CHEST PORTABLE from 08/07/2020 FINDINGS: A tracheostomy tube remains in place. Left subclavian PICC line remains well positioned. There stents of infiltrates with areas of consolidation which demonstrate progression since 08/06 and 08/07 chest x-rays. IMPRESSION: Worsening bibasilar consolidation and worsening of left midlung infiltrate. Remaining extensive infiltrates not visibly changed. Dictated by: Susan Jones 08/08/2020 07:47 Susan Jones in OV 08/08/2020 07:47
[2020-08-08 05:01] LABS: MANUAL DIFFERENTIAL MANUAL DIFFERENTIAL (MANUAL DIFF)
[2020-08-08 05:02] LABS: Alanine Aminotransferase 46 U/L (12-78); Albumin Level 2.5 g/dl (3.5-5.0); Albumin/Globulin Ratio 0.7 (1.1-1.8); Alkaline Phosphatase 86 U/L (38-126); Aspartate Amino Transferase 25 U/L (17-59); Bilirubin,Total 0.4 mg/dl (0.2-1.3); Blood Urea Nitrogen 52 mg/dl (9-20); Creatinine Clearance Estimated 80 mL/min (50-200); Estimated Glomerular Filt Rate 67 ml/min (>60); GFR (African American) 81 ML/MIN (>60); Globulin 3.4 g/dL (1.3-3.2); Total Protein,Serum 5.9 g/dl (6.3-8.2)
[2020-08-08 05:03] LABS: Calcium 8.2 mg/dl (8.4-10.2); Glucose 165 mg/dl (74-100)
[2020-08-08 05:15] LABS: Anion Gap 7.9 mEq/L (5-15)
[2020-08-08 05:16] LABS: Carbon Dioxide 41 mmol/L (22.0-30.0)
--- NOTE | 2020-08-08 05:23 | PC.NURSE ---
Patient had an uneventful night. VS WNL, Trach care completed, new dressing to pressure ulcer on coccyx r/t soiled.
[2020-08-08 06:23] LABS: Lymphocytes % 5 % (10-50); Monocytes % 5 % (2-9); Neutrophils % 90 % (42-76); Total Cells Counted 100
[2020-08-08 06:24] LABS: Anisocytosis 1+; Hypochromasia 1+; Platelet Estimate Normal
[2020-08-08 07:04] LABS: ABG PCO2 55.8 mmhg (35.0-45.0); ABG PH 7.44 mmol/L (7.35-7.45); ABG PO2 92.9 mmhg (80-100)
[2020-08-08 07:05] LABS: ABG Base Excess 12.9 mmol/L (-2.4-2.3); ABG Oxygen Saturation 97 % (90-100); ABG TCO2 38.8 mmhg (23-27); Allen's Test ACCEPTABLE; Oxygen 70 %; PEEP 6; Source R RADIAL; Tidal Volume 480; Vent Rate 18
--- NOTE | 2020-08-08 08:18 | HMH.ACPN2 ---
Internal Medicine - PN: Subj *Date: 08/08/20 *Time: 09:36 Interval history: No events noted overnight. Exam Vital signs and Labs for Last 24 Hours: Temp Pulse Resp BP Pulse Ox 99.9 F H 109 H 26 H 108/58 L 95 08/08/20 06:59 08/08/20 06:59 08/08/20 06:59 08/08/20 06:59 08/08/20 06:59 Laboratory Results - last 24 hr 08/06/20 11:41: POC Glucose 174 H 08/06/20 17:46: POC Glucose 199 H 08/06/20 22:36: POC Glucose 263 H 08/07/20 04:45: Total Counted 100, Neutrophils % (Manual) 91 H, Lymphocytes % (Manual) 7 L, Monocytes % (Manual) 2, Platelet Estimate Normal, RBC Morphology Normal 08/07/20 04:46: POC Glucose 166 H 08/07/20 11:27: POC Glucose 183 H 08/07/20 11:48: D-Dimer 2.58 H 08/07/20 17:19: POC Glucose 182 H 08/07/20 20:44: POC Glucose 179 H 08/08/20 04:15: WBC 15.9 H D, RBC 3.09 L, Hgb 8.9 L, Hct 27.9 L, MCV 90.4, MCH 28.7, MCHC 31.7 L, RDW 16.3, Plt Count 226 D, MPV 8.3, Neut % (Auto) 89.6 H, Lymph % (Auto) 3.8 L, Edwards % (Auto) 6.4, Eos % (Auto) 0.0 L, Baso % (Auto) 0.1, Neut # (Auto) 14.2 H, Lymph # (Auto) 0.6 L, [place] # (Auto) 1.0, Eos # (Auto) 0.0, Baso # (Auto) 0.0, Total Counted 100, Neutrophils % (Manual) 90 H, Lymphocytes % (Manual) 5 L, Monocytes % (Manual) 5, Platelet Estimate Normal, Hypochromasia 1+, Anisocytosis 1+ 08/08/20 04:15: Sodium 143, Potassium 3.9, Chloride 98, Carbon Dioxide 41 H*, Anion Gap 7.9, BUN 52 H, Creatinine 1.10, Estimated Creat Clear 80, Estimated GFR 67, Est GFR ( Amer) 81, Glucose 165 H, Calcium 8.2 L, Total Bilirubin 0.4, AST 25, ALT 46, Alkaline Phosphatase 86, Total Protein 5.9 L, Albumin 2.5 L, Globulin 3.4 H, Albumin/Globulin Ratio 0.7 L 08/08/20 04:45: POC Glucose 170 H 08/08/20 07:00: Specimen Source R radial, O2 % 70, ABG pH 7.44, ABG pCO2 55.8 H, ABG pO2 92.9, ABG HCO3 37.0 H, ABG Total CO2 38.8 H, ABG O2 Saturation 97, ABG Base Excess 12.9 H, Michele Test Acceptable, Vent Rate 18, Tidal Volume 480, PEEP 6 Vital Signs - 24 hr 08/07/20 09:00 08/07/20 10:00 08/07/20 10:59 Temperature 97.9 F Pulse Rate Pulse Rate [Apical] 91 H 81 Respiratory Rate 20 18 20 Blood Pressure [Right Arm] 128/73 115/72 02 Sat by Pulse Oximetry 93 L 93 L 94 L 08/07/20 11:00 08/07/20 12:00 08/07/20 12:06 Temperature 98.5 F Pulse Rate 80 Pulse Rate [Apical] 71 84 Respiratory Rate 21 18 Blood Pressure [Right Arm] 123/71 118/68 02 Sat by Pulse Oximetry 94 L 95 08/07/20 12:30 08/07/20 13:00 08/07/20 14:00 Temperature 98.7 F Pulse Rate 97 H Pulse Rate [Apical] 83 86 Respiratory Rate 19 18 Blood Pressure [Right Arm] 121/68 128/74 02 Sat by Pulse Oximetry 93 L 97 08/07/20 14:05 08/07/20 15:00 08/07/20 16:00 Temperature 97.4 F L 97.6 F Pulse Rate 80 Pulse Rate [Apical] 89 89 Respiratory Rate 21 21 22 Blood Pressure [Right Arm] 122/70 114/67 02 Sat by Pulse Oximetry 93 L 93 L 96 08/07/20 17:00 08/07/20 17:58 08/07/20 18:00 Temperature 98.0 F 97.2 F L Pulse Rate Pulse Rate [Apical] 95 H 88 Respiratory Rate 22 21 Blood Pressure [Right Arm] 117/62 113/62 02 Sat by Pulse Oximetry 94 L 95 96 08/07/20 18:51 08/07/20 20:00 08/07/20 20:05 Temperature 97.2 F L Pulse Rate 90 98 H Pulse Rate [Apical] 92 H 101 H Respiratory Rate 21 20 Blood Pressure [Right Arm] 114/62 118/67 02 Sat by Pulse Oximetry 96 96 95 08/07/20 21:00 08/07/20 22:00 08/07/20 22:48 Temperature 98.6 F 98.1 F Pulse Rate Pulse Rate [Apical] 93 H 83 Respiratory Rate 19 22 Blood Pressure [Right Arm] 108/64 L 102/62 L 02 Sat by Pulse Oximetry 87 L 97 97 08/07/20 22:50 08/07/20 23:00 08/07/20 23:19 Temperature 98.2 F Pulse Rate 80 Pulse Rate [Apical] 82 Respiratory Rate 19 20 Blood Pressure [Right Arm] 111/62 02 Sat by Pulse Oximetry 97 97 08/08/20 00:00 08/08/20 01:00 08/08/20 02:00 Temperature 98.0 F 98.0 F 97.9 F Pulse Rate Pulse Rate [Apical] 85 85 90 Respiratory Rate 22 21 29 H Blood Pressure [Right Arm] 102/62 L 112/70 115/
--- NOTE | 2020-08-08 10:33 | HMH.PULMPN ---
Internal Medicine - PN: Subj *Date: 08/08/20 *Time: 10:33 Interval history: No acute respiratory vents overnight. Exam - Constitutional Constitutional:: Present: no acute distress, comfortable - HENMT Exam HENMT: Present: atraumatic - Eye Exam Eyes:: Present: eyelids normal - Neck Exam Neck:: Present: thyroid normal - Respiratory Exam Respiratory:: Present: crackles - Cardiovascular Exam Cardiac:: Present: S1, S2 - GI Exam GI:: Present: soft - Skin Exam Skin: Present: warm, no rash - Neurological Exam Neurological: Present: awake - Extremities Exam Extremities: Present: no cyanosis, no clubbing, no edema Assessment and Plan (1) Respiratory failure with hypoxia Status: Acute Qualifiers: Chronicity: acute Qualified Code(s): J96.01 - Acute respiratory failure with hypoxia Category: Medical Code(s): J96.91 - Respiratory failure, unspecified with hypoxia (2) Pneumonia due to COVID-19 virus Status: Acute Category: Medical Code(s): U07.1 - COVID-19; J12.82 - Pneumonia due to coronavirus disease 2019 (3) Anemia Status: Acute Category: Medical Code(s): D64.9 - Anemia, unspecified (4) GI bleed Status: Acute Category: Medical Code(s): K92.2 - Gastrointestinal hemorrhage, unspecified (5) Staphylococcus epidermidis bacteremia Status: Acute Category: Medical Code(s): R78.81 - Bacteremia; B95.7 - Other staphylococcus as the cause of diseases classified elsewhere (6) CAD (coronary artery disease), [place] coronary artery Status: Chronic Qualifiers: [place] vs. transplanted heart: [place] heart Associated angina: without angina Qualified Code(s): I25.10 - Atherosclerotic heart disease of [place] coronary artery without angina pectoris Category: Medical Code(s): I25.10 - Atherosclerotic heart disease of [place] coronary artery without angina pectoris (7) DM2 (diabetes mellitus, type 2) Status: Chronic Qualifiers: Diabetes mellitus custodial insulin use: without intermediate teacher use Diabetes mellitus complication status: without complication Qualified Code(s): E11.9 - Type 2 diabetes mellitus without complications Category: Medical Code(s): E11.9 - Type 2 diabetes mellitus without complications (8) History of left below knee amputation Status: Chronic Category: Medical Code(s): Z89.512 - Acquired absence of left leg below knee (9) History of osteomyelitis Status: Chronic Category: Medical Code(s): Z87.39 - Personal history of other diseases of the musculoskeletal system and connective tissue (10) Sepsis Status: Acute Qualifiers: Sepsis type: sepsis due to unspecified organism Sepsis acute organ dysfunction status: with acute organ dysfunction Severe sepsis acute organ dysfunction type: acute respiratory failure Acute respiratory failure type: with hypoxia Severe sepsis shock status: with septic shock Qualified Code(s): A41.9 - Sepsis, unspecified organism; R65.21 - Severe sepsis with septic shock; J96.01 - Acute respiratory failure with hypoxia Category: Medical Code(s): A41.9 - Sepsis, unspecified organism (11) Elevated LFTs Status: Acute Category: Medical Code(s): R79.89 - Other specified abnormal findings of blood chemistry (12) Staphylococcal meningitis Status: Acute Category: Medical Code(s): G00.3 - Staphylococcal meningitis - Assessment and plan all Dx Assessment and Plan for all problems:: #COVID-19 pneumonia: #Acute hypoxic respiratory failure requiring mechanical ventilation: 69-year-old no prior respiratory complaints never smoker with recent diagnosis of COVID-19 present with worsening respiratory failure cough and productive phlegm. CT showed bilateral diffuse pulmonary infiltrates. No evidence of acute pulmonary embolism. Patient respiratory status gradually worsened throughout his hospital course with increasing oxygen requirements to BiPAP,. Patient was initially DNR/DNI [place]
[2020-08-08 12:43] LABS: POC Glucose,Bedside 196 (70-110)
--- NOTE | 2020-08-08 14:23 | DIET.NUTRFU ---
Pt had PEG placed 08/06, tube feedings through PEG initiated 08/07 at 16:00, currently at 30ml/h and well tolerated. Pt had a BM today, first since 08/01. Weight is stable. Electrolytes wnl, BUN continues to increase. H&H stable. BG avg. 190. Pt remains NPO after midnight dt procedures, tube feeding diet order available under history and as stated below. Recommend continuing to advance TF regimen of Pulmocare 1.5 by 10ml/h q 8h as tolerated to goal rate of 46ml/h with water flushes of 230ml q 4h. Regimen provides 1656kcal(20kcal/kg), 71g protein(0.8g/kg), 867ml free water (total fluids with [id number]). Continuing to monitor pt tolerance, fluids, meds to alter regimen as indicated. Will reevaluate further advancing rate upon good tolerance PEG feedings at goal rate 24h.
--- NOTE | 2020-08-08 15:40 | PC.NURSE ---
Trach care provided with respiratory's assistance. Pt tolerated well. Large amounts of thick mucous suctioned from around trach multiple times this shift. Dressing to peg tube changed due to dried sanguineous drainage on old dressing. Pulmocare infusing at 30 mls/hr. Will increase to 40 at 1600. Residuals < 10mls on every check. Lungs clear but diminished. Vent settings noted in intervention. Goncalves is to bedside draining yellow urine. Approximately 770 mls of urine out thus far. Pt will shake head yes or no on request but unable to squeeze hands or follow other commands. He was repositioned q2hrs and oral care provided. +2 to +3 generalized edema noted. Sinus tach/NSR on telemetry. Will continue to monitor.
[2020-08-08 16:39] LABS: POC Glucose,Bedside 201 (70-110)
[2020-08-08 20:56] LABS: POC Glucose,Bedside 148 (70-110)
[2020-08-09] VITALS (34 sets, daily range): BP systolic 106–150; BP diastolic 59–84; PULSE 76–120; RESP 18–38; TEMP 36.4–38.1; O2SAT 87–96; BMI 24.8
[2020-08-09 05:00] LABS: POC Glucose,Bedside 232 (70-110)
--- NOTE | 2020-08-09 06:55 | PC.NURSE ---
Patient has been more alert this shift. He focused more when talking to him, squeezed left hand and opened mouth. Patient has shown no s/s of acute distress this shift.
--- NOTE | 2020-08-09 08:29 | HMH.ACPN2 ---
Internal Medicine - PN: Subj *Date: 08/09/20 *Time: 09:35 Interval history: Patient had a T max of 100.5 last night, no other events noted. Exam Vital signs and Labs for Last 24 Hours: Temp Pulse Resp BP Pulse Ox 100 F H 107 H 25 H 136/81 92 L 08/09/20 07:58 08/09/20 07:58 08/09/20 07:58 08/09/20 07:58 08/09/20 07:58 Laboratory Results - last 24 hr 08/08/20 11:58: POC Glucose 196 H 08/08/20 16:26: POC Glucose 201 H 08/08/20 20:41: POC Glucose 148 H 08/09/20 04:26: POC Glucose 232 H Vital Signs - 24 hr 08/08/20 09:00 08/08/20 10:00 08/08/20 11:00 Temperature 100.0 F H 98.6 F 99.2 F Pulse Rate Pulse Rate [Apical] 105 H 100 H 90 Respiratory Rate 20 18 19 Blood Pressure [Right Arm] 127/76 131/71 129/75 02 Sat by Pulse Oximetry 93 L 89 L 90 L 08/08/20 11:35 08/08/20 12:00 08/08/20 12:27 Temperature 98.8 F Pulse Rate 90 96 H Pulse Rate [Apical] 90 Respiratory Rate 29 H 24 Blood Pressure [Right Arm] 137/77 02 Sat by Pulse Oximetry 86 L 87 L 08/08/20 13:00 08/08/20 14:00 08/08/20 14:15 Temperature 98.8 F 99.4 F Pulse Rate Pulse Rate [Apical] 94 H 96 H Respiratory Rate 21 19 22 Blood Pressure [Right Arm] 134/78 135/76 02 Sat by Pulse Oximetry 95 92 L 90 L 08/08/20 15:00 08/08/20 16:00 08/08/20 17:00 Temperature 99.4 F 98.8 F 99.5 F Pulse Rate 100 H Pulse Rate [Apical] 99 H 98 H 95 H Respiratory Rate 20 18 20 Blood Pressure [Right Arm] 132/75 137/79 130/80 02 Sat by Pulse Oximetry 89 L 88 L 89 L 08/08/20 18:00 08/08/20 18:06 08/08/20 19:00 Temperature 99.6 F 98.1 F Pulse Rate Pulse Rate [Apical] 95 H 96 H Respiratory Rate 18 25 H 32 H Blood Pressure [Right Arm] 142/78 H 131/73 02 Sat by Pulse Oximetry 85 L 90 L 91 L 08/08/20 20:00 08/08/20 20:25 08/08/20 21:00 Temperature 100.2 F H 100.0 F H Pulse Rate 110 H 98 H Pulse Rate [Apical] 107 H 104 H Respiratory Rate 24 26 H Blood Pressure [Right Arm] 136/78 120/75 02 Sat by Pulse Oximetry 90 L 92 L 92 L 08/08/20 21:48 08/08/20 22:00 08/08/20 23:00 Temperature 99.5 F 98.9 F Pulse Rate Pulse Rate [Apical] 91 H 89 Respiratory Rate 18 26 H 26 H Blood Pressure [Right Arm] 125/76 130/72 02 Sat by Pulse Oximetry 88 L 92 L 92 L 08/09/20 00:00 08/09/20 01:00 08/09/20 02:00 Temperature 98.9 F 100.5 F H 98.8 F Pulse Rate 110 H Pulse Rate [Apical] 100 H 101 H 103 H Respiratory Rate 26 H 34 H 35 H Blood Pressure [Right Arm] 137/76 137/75 140/79 02 Sat by Pulse Oximetry 89 L 88 L 88 L 08/09/20 03:00 08/09/20 04:00 08/09/20 05:00 Temperature 98.9 F 99.6 F 99.1 F Pulse Rate 110 H Pulse Rate [Apical] 108 H 107 H 104 H Respiratory Rate 34 H 23 35 H Blood Pressure [Right Arm] 135/78 141/80 H 150/78 H 02 Sat by Pulse Oximetry 88 L 88 L 91 L 08/09/20 06:00 08/09/20 06:41 08/09/20 06:53 Temperature 98.9 F 98.9 F Pulse Rate 110 H Pulse Rate [Apical] 112 H 113 H Respiratory Rate 38 H 25 H 32 H Blood Pressure [Right Arm] 147/84 H 136/81 02 Sat by Pulse Oximetry 89 L 90 L 91 L 08/09/20 07:58 Temperature 100 F H Pulse Rate Pulse Rate [Apical] 107 H Respiratory Rate 25 H Blood Pressure [Right Arm] 136/81 02 Sat by Pulse Oximetry 92 L I & O for Last 24 hours: Intake & Output 08/06/20 08/07/20 08/08/20 08/09/20 23:59 23:59 23:59 23:59 Intake Total 698 / 698 621 / 621 3084 / 3084 1336 / 1336 Output Total 2170 / 2195 1494 / 1524 1790 / 1890 2175 / 2175 Balance -1472 / -1497 -873 / -903 1294 / 1194 -839 / -839 Weight 192 lb 1 oz 191 lb 9.307 oz 193 lb 9 oz 193 lb 7 oz Microbiology Reports for the Last 24 Hours: Microbiology 08/04/20 06:40 Blood Blood Culture - Final NO GROWTH AFTER 5 DAYS 08/05/20 09:10 Neck - Wound Gram Stain - Final 08/05/20 09:10 Neck - Wound Wound Culture - Final Staphylococcus schleiferi Corynebacterium amycolatum 08/06/20 11:13 Blood
--- NOTE | 2020-08-09 08:46 | PC.NURSE ---
tubefeeds on hold secondary to having to bronchoscopy today
--- NOTE | 2020-08-09 09:50 | HMH.ACPN ---
Internal Medicine - PN: Subj *Date: 08/09/20 *Time: 09:50 Exam Vital signs and Labs for Last 24 Hours: Temp Pulse Resp BP Pulse Ox 100 F H 106 H 22 133/82 92 L 08/09/20 09:00 08/09/20 09:00 08/09/20 09:00 08/09/20 09:00 08/09/20 09:00 Laboratory Results - last 24 hr 08/08/20 11:58: POC Glucose 196 H 08/08/20 16:26: POC Glucose 201 H 08/08/20 20:41: POC Glucose 148 H 08/09/20 04:26: POC Glucose 232 H I & O for Last 24 hours: Intake & Output 08/06/20 08/07/20 08/08/20 08/09/20 23:59 23:59 23:59 23:59 Intake Total 698 / 698 621 / 621 3084 / 3084 1336 / 1336 Output Total 2170 / 2195 1494 / 1524 1790 / 1890 2275 / 2275 Balance -1472 / -1497 -873 / -903 1294 / 1194 -939 / -939 Weight 87.118 kg 86.9 kg 87.798 kg 87.742 kg Microbiology Reports for the Last 24 Hours: Microbiology 08/04/20 06:40 Blood Blood Culture - Final NO GROWTH AFTER 5 DAYS 08/05/20 09:10 Neck - Wound Gram Stain - Final 08/05/20 09:10 Neck - Wound Wound Culture - Final Staphylococcus schleiferi Corynebacterium amycolatum 08/06/20 11:13 Blood Blood Culture - Preliminary NO GROWTH AFTER 48 HOURS Assessment and Plan (1) Respiratory failure with hypoxia Status: Acute Qualifiers: Chronicity: acute Qualified Code(s): J96.01 - Acute respiratory failure with hypoxia Category: Medical Code(s): J96.91 - Respiratory failure, unspecified with hypoxia (2) Pneumonia due to COVID-19 virus Status: Acute Category: Medical Code(s): U07.1 - COVID-19; J12.82 - Pneumonia due to coronavirus disease 2019 (3) Anemia Status: Acute Category: Medical Code(s): D64.9 - Anemia, unspecified (4) GI bleed Status: Acute Category: Medical Code(s): K92.2 - Gastrointestinal hemorrhage, unspecified (5) Staphylococcus epidermidis bacteremia Status: Acute Category: Medical Code(s): R78.81 - Bacteremia; B95.7 - Other staphylococcus as the cause of diseases classified elsewhere (6) CAD (coronary artery disease), [place] coronary artery Status: Chronic Qualifiers: [place] vs. transplanted heart: [place] heart Associated angina: without angina Qualified Code(s): I25.10 - Atherosclerotic heart disease of [place] coronary artery without angina pectoris Category: Medical Code(s): I25.10 - Atherosclerotic heart disease of [place] coronary artery without angina pectoris (7) DM2 (diabetes mellitus, type 2) Status: Chronic Qualifiers: Diabetes mellitus terminal clerk insulin use: without penitentiary use Diabetes mellitus complication status: without complication Qualified Code(s): E11.9 - Type 2 diabetes mellitus without complications Category: Medical Code(s): E11.9 - Type 2 diabetes mellitus without complications (8) History of left below knee amputation Status: Chronic Category: Medical Code(s): Z89.512 - Acquired absence of left leg below knee (9) History of osteomyelitis Status: Chronic Category: Medical Code(s): Z87.39 - Personal history of other diseases of the musculoskeletal system and connective tissue (10) Sepsis Status: Acute Qualifiers: Sepsis type: sepsis due to unspecified organism Sepsis acute organ dysfunction status: with acute organ dysfunction Severe sepsis acute organ dysfunction type: acute respiratory failure Acute respiratory failure type: with hypoxia Severe sepsis shock status: with septic shock Qualified Code(s): A41.9 - Sepsis, unspecified organism; R65.21 - Severe sepsis with septic shock; J96.01 - Acute respiratory failure with hypoxia Category: Medical Code(s): A41.9 - Sepsis, unspecified organism (11) Elevated LFTs Status: Acute Category: Medical Code(s): R79.89 - Other specified abnormal findings of blood chemistry (12) Staphylococcal meningitis Status: Acute Category: Medical Code(s): G00.3 -
[2020-08-09 10:58] LABS: POC Glucose,Bedside 192 (70-110)
--- NOTE | 2020-08-09 12:47 | PC.NURSE ---
called and obtained verbal consent for trach switch out to a 8fr [place] and for a bronchoscopy. Verbal consent verified with 2nd RN (Renee Peace).
--- NOTE | 2020-08-09 13:49 | HMH.PULMPN ---
Internal Medicine - PN: Subj *Date: 08/09/20 *Time: 13:49 Interval history: No acute respiratory events overnight Exam - Constitutional Constitutional:: Present: comfortable - HENMT Exam HENMT: Present: normocephalic - Eye Exam Eyes:: Present: eyelids normal - Neck Exam Neck:: Present: thyroid normal - Respiratory Exam Respiratory:: Present: crackles - Cardiovascular Exam Cardiac:: Present: S1, S2 - GI Exam GI:: Present: soft, no hepatosplenomegaly - Skin Exam Skin: Present: warm, no rash, dry - Neurological Exam Neurological: Absent: alert, awake, normal cognition - Extremities Exam Extremities: Present: no cyanosis, no clubbing, no edema Assessment and Plan (1) Respiratory failure with hypoxia Status: Acute Qualifiers: Chronicity: acute Qualified Code(s): J96.01 - Acute respiratory failure with hypoxia Category: Medical Code(s): J96.91 - Respiratory failure, unspecified with hypoxia (2) Pneumonia due to COVID-19 virus Status: Acute Category: Medical Code(s): U07.1 - COVID-19; J12.82 - Pneumonia due to coronavirus disease 2019 (3) Anemia Status: Acute Category: Medical Code(s): D64.9 - Anemia, unspecified (4) GI bleed Status: Acute Category: Medical Code(s): K92.2 - Gastrointestinal hemorrhage, unspecified (5) Staphylococcus epidermidis bacteremia Status: Acute Category: Medical Code(s): R78.81 - Bacteremia; B95.7 - Other staphylococcus as the cause of diseases classified elsewhere (6) CAD (coronary artery disease), [place] coronary artery Status: Chronic Qualifiers: [place] vs. 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 use: without regional intermodal truck driver use Diabetes mellitus complication status: without complication Qualified Code(s): E11.9 - Type 2 diabetes mellitus without complications Category: Medical Code(s): E11.9 - Type 2 diabetes mellitus without complications (8) History of left below knee amputation Status: Chronic Category: Medical Code(s): Z89.512 - Acquired absence of left leg below knee (9) History of osteomyelitis Status: Chronic Category: Medical Code(s): Z87.39 - Personal history of other diseases of the musculoskeletal system and connective tissue (10) Sepsis Status: Acute Qualifiers: Sepsis type: sepsis due to unspecified organism Sepsis acute organ dysfunction status: with acute organ dysfunction Severe sepsis acute organ dysfunction type: acute respiratory failure Acute respiratory failure type: with hypoxia Severe sepsis shock status: with septic shock Qualified Code(s): A41.9 - Sepsis, unspecified organism; R65.21 - Severe sepsis with septic shock; J96.01 - Acute respiratory failure with hypoxia Category: Medical Code(s): A41.9 - Sepsis, unspecified organism (11) Elevated LFTs Status: Acute Category: Medical Code(s): R79.89 - Other specified abnormal findings of blood chemistry (12) Staphylococcal meningitis Status: Acute Category: Medical Code(s): G00.3 - Staphylococcal meningitis - Assessment and plan all Dx Assessment and Plan for all problems:: #COVID-19 pneumonia: #Acute hypoxic respiratory failure requiring mechanical ventilation: 69-year-old no prior respiratory complaints never smoker with recent diagnosis of COVID-19 present with worsening respiratory failure cough and productive phlegm. CT showed bilateral diffuse pulmonary infiltrates. No evidence of acute pulmonary embolism. Patient respiratory status gradually worsened throughout his hospital course with increasing oxygen requirements to BiPAP,. P
--- NOTE | 2020-08-09 14:39 | SUR.OPER ---
Bronchoscopy was preformed at patient bedside by Dr. Myles
--- NOTE | 2020-08-09 16:00 | PC.NURSE ---
tubefeeds restarted @ 46mL/hr via PEG tube
--- NOTE | 2020-08-09 16:29 | P.PCN_ITS ---
- Procedure: Date: 08/09/20 Patient Date of :: 1950 Procedure Performed:: Bronchoscopy with bronchial aspiration Indications:: Hypoxic respiratory failure, nonresolving pneumonia Performing Provider:: Max Myles MD Referring Provider:: Dr. Chance Sedation:: Propofol and fentanyl Procedure:: Bronchoscopy with bronchial aspiration Findings:: A clean diagnostic bronchoscopy was advanced via size 6 tracheostomy tube procedure was difficult given the smaller size of the tracheostomy tube. Airways were examined up to the subsegmental bronchi. Appeared grossly normal however examination was limited as we need to frequently retract the bronchoscopy out of the tracheostomy tube as as he is not receiving any kunal tilation given the smaller size tracheostomy tube. No significant mucus secretions or mucous plugging noted. Bronchial aspirates cultures were obtained from right lower lobe and left lower lobe and were sent for culture. Patient tolerated the procedure well. We will follow the results and continue current management as outlined in today's progress note. Recommendations:: Follow with culture results and outlined in prior progress note Complications:: None Estimated blood obtained (mL): 0
[2020-08-09 23:08] LABS: POC Glucose,Bedside 141 (70-110)
[2020-08-10] VITALS (34 sets, daily range): BP systolic 129–149; BP diastolic 70–95; PULSE 24–119; RESP 18–105; TEMP 36.6–38.2; O2SAT 86–97; BMI 22.9
[2020-08-10 05:38] LABS: Chloride 101 mmol/L (98-107); Sodium 143 mmol/L (136-145)
[2020-08-10 05:39] LABS: Potassium 3.9 mmoL/L (3.5-5.1)
[2020-08-10 05:41] LABS: Alanine Aminotransferase 38 U/L (12-78); Alkaline Phosphatase 89 U/L (38-126); Aspartate Amino Transferase 28 U/L (17-59); Bilirubin,Total 0.4 mg/dl (0.2-1.3); Blood Urea Nitrogen 50 mg/dl (9-20); Creatinine Clearance Estimated 81 mL/min (50-200); Estimated Glomerular Filt Rate 74 ml/min (>60); GFR (African American) 90 ML/MIN (>60)
[2020-08-10 05:42] LABS: Albumin Level 2.5 g/dl (3.5-5.0); Albumin/Globulin Ratio 0.8 (1.1-1.8); Basophils # 0.1 K/mm3 (0-0.2); Basophils % 0.5 % (0.1-2.0); Calcium 7.9 mg/dl (8.4-10.2); Eosinophils % 0.2 % (0.1-12.0); Globulin 3.3 g/dL (1.3-3.2); Glucose 189 mg/dl (74-100); Hematocrit 28.1 % (42.0-52.0); Hemoglobin 8.7 g/dL (14.1-18.0); Lymphocytes # 0.6 K/mm3 (0.7-4.5); Lymphocytes % 5.1 % (10-50); Mean Corpuscular HGB Conc 31.1 g/dL (31.8-35.4); Mean Corpuscular Hemoglobin 28.1 pg (27.0-31.2); Mean Corpuscular Volume 90.4 fl (80-94); Monocytes # 0.7 K/mm3 (0.1-1.0); Monocytes % 5.9 % (1.7-9.3); Neutrophils # 10.8 K/mm3 (1.8-7.8); Neutrophils % 88.3 % (37.0-80.0); Platelet Count 219 K/mm3 (142-424); Red Blood Count 3.11 M/mm3 (4.60-6.20); Total Protein,Serum 5.8 g/dl (6.3-8.2); White Blood Count 12.3 K/mm3 (4.8-10.8)
[2020-08-10 05:49] LABS: Anion Gap 5.9 mEq/L (5-15)
[2020-08-10 06:00] LABS: Carbon Dioxide 40 mmol/L (22.0-30.0)
--- NOTE | 2020-08-10 06:00 | XR_ITS ---
PROCEDURE: XR CHEST PORTABLE CLINICAL HISTORY: pneumonia Patient COMPARISON: CT CT CHEST WO CON from 07/24/2020 CR XR CHEST PORTABLE from 08/06/2020 CR XR CHEST PORTABLE from 08/07/2020 CR XR CHEST PORTABLE from 08/08/2020 FINDINGS: Tracheostomy tube PICC line are well positioned and unchanged. There is slight the creased aeration of the lungs with increasing bibasilar consolidation compared to prior study 08/08/2020. IMPRESSION: Worsened appearance of the lungs. Dictated by: Susan Jones MD 08/10/2020 08:15 Susan Jones MD in [place] 08/10/2020 08:15
[2020-08-10 06:03] LABS: POC Glucose,Bedside 192 (70-110)
[2020-08-10 06:34] LABS: MANUAL DIFFERENTIAL MANUAL DIFFERENTIAL (MANUAL DIFF)
--- NOTE | 2020-08-10 08:36 | HMH.ACPN2 ---
Internal Medicine - PN: Subj *Date: 08/10/20 *Time: 08:54 Interval history: Pt had bronch done yesterday afternoon. No other events noted overnight. Exam Vital signs and Labs for Last 24 Hours: Temp Pulse Resp BP Pulse Ox 98.8 F 105 H 26 H 129/79 90 L 08/10/20 07:13 08/10/20 07:13 08/10/20 07:13 08/10/20 07:13 08/10/20 07:13 Laboratory Results - last 24 hr 08/09/20 10:50: POC Glucose 192 H 08/09/20 22:59: POC Glucose 141 H 08/09/20 : Specimen Source Cancelled, O2 % Cancelled, ABG pH Cancelled, ABG pCO2 Cancelled, ABG pO2 Cancelled, ABG HCO3 Cancelled, ABG Total CO2 Cancelled, ABG O2 Saturation Cancelled, ABG Base Excess Cancelled, Michele Test Cancelled, ABG Lactate Cancelled, Vent Rate Cancelled, Tidal Volume Cancelled, PEEP Cancelled 08/10/20 05:20: WBC 12.3 H, RBC 3.11 L, Hgb 8.7 L, Hct 28.1 L, MCV 90.4, MCH 28.1, MCHC 31.1 L, RDW 16.0, Plt Count 219, MPV 8.0, Neut % (Auto) 88.3 H, Lymph % (Auto) 5.1 L, [place] % (Auto) 5.9, Eos % (Auto) 0.2, Baso % (Auto) 0.5, Neut # (Auto) 10.8 H, Lymph # (Auto) 0.6 L, [place] # (Auto) 0.7, Eos # (Auto) 0.0, Baso # (Auto) 0.1 08/10/20 05:20: Sodium 143, Potassium 3.9, Chloride 101, Carbon Dioxide 40 H, Anion Gap 5.9, BUN 50 H, Creatinine 1.00, Estimated Creat Clear 81, Estimated GFR 74, Est GFR ( Amer) 90, Glucose 189 H, Calcium 7.9 L, Total Bilirubin 0.4, AST 28, ALT 38, Alkaline Phosphatase 89, Total Protein 5.8 L, Albumin 2.5 L, Globulin 3.3 H, Albumin/Globulin Ratio 0.8 L 08/10/20 05:54: POC Glucose 192 H Vital Signs - 24 hr 08/09/20 09:00 08/09/20 10:00 08/09/20 10:15 Temperature 100 F H 99.8 F H Pulse Rate Pulse Rate [Apical] 106 H 104 H Respiratory Rate 22 28 H 30 H Blood Pressure [Right Arm] 133/82 132/81 02 Sat by Pulse Oximetry 92 L 94 L 90 L 08/09/20 11:00 08/09/20 12:00 08/09/20 12:03 Temperature 100.1 F H 97.8 F Pulse Rate 90 97 H Pulse Rate [Apical] 85 85 Respiratory Rate 34 H 23 Blood Pressure [Right Arm] 140/77 137/79 02 Sat by Pulse Oximetry 91 L 93 L 08/09/20 12:09 08/09/20 12:52 08/09/20 13:40 Temperature 97.6 F 97.5 F L Pulse Rate 99 H Pulse Rate [Apical] 95 H 90 Respiratory Rate 34 H 27 H Blood Pressure [Right Arm] 134/82 140/79 02 Sat by Pulse Oximetry 95 92 L 08/09/20 14:42 08/09/20 14:43 08/09/20 16:00 Temperature 98.9 F 99.1 F Pulse Rate 90 Pulse Rate [Apical] 93 H 90 Respiratory Rate 23 24 23 Blood Pressure [Right Arm] 138/73 108/59 L 02 Sat by Pulse Oximetry 95 96 93 L 08/09/20 17:00 08/09/20 18:00 08/09/20 18:05 Temperature 99.1 F 99.1 F Pulse Rate Pulse Rate [Apical] 88 96 H Respiratory Rate 24 24 24 Blood Pressure [Right Arm] 126/71 138/75 02 Sat by Pulse Oximetry 94 L 93 L 91 L 08/09/20 18:48 08/09/20 19:03 08/09/20 19:59 Temperature 99.2 F 100.0 F H Pulse Rate 77 Pulse Rate [Apical] 94 H 95 H Respiratory Rate 22 18 Blood Pressure [Right Arm] 129/72 114/66 02 Sat by Pulse Oximetry 93 L 94 L 91 L 08/09/20 20:00 08/09/20 20:53 08/09/20 22:00 Temperature 99.8 F H 98.8 F Pulse Rate 80 Pulse Rate [Apical] 76 76 Respiratory Rate 19 18 Blood Pressure [Right Arm] 129/73 106/62 L 02 Sat by Pulse Oximetry 90 L 89 L 08/09/20 22:30 08/09/20 23:00 08/10/20 00:00 Temperature 98.4 F 98.7 F Pulse Rate 70 Pulse Rate [Apical] 77 82 Respiratory Rate 24 18 22 Blood Pressure [Right Arm] 106/62 L 139/77 02 Sat by Pulse Oximetry 90 L 91 L 92 L 08/10/20 01:00 08/10/20 01:45 08/10/20 02:00 Temperature 98.7 F 98.1 F Pulse Rate Pulse Rate [Apical] 82 80 Respiratory Rate 23 24 Blood Pressure [Right Arm] 139/77 135/70 02 Sat by Pulse Oximetry 92 L 97 90 L 08/10/20 03:00 08/10/20 04:00 08/10/20 05:00 Temperature 98.2 F 98.3 F 98.8 F Pulse Rate 88 Pulse Rate [Apical] 85 82 99 H Respiratory Rate 22 18 19 Blood Pressure [Right Arm] 137/95 H 141/73 H 133/85 02 Sat by Pulse Oximetry 89 L 90 L 96 08/10/20 05:57 08/10/20 06:25 08/10/20 06:57 Temp
--- NOTE | 2020-08-10 08:37 | PC.NURSE ---
Dr. Franco @ [facility] for consult. He plans to debride coccyx area early this afternoon. Called [employer] (Xu) for a small instrument set from the OR.
[2020-08-10 08:40] LABS: Hypochromasia 1+; Lymphocytes % 5 % (10-50); Monocytes % 5 % (2-9); Neutrophils % 90 % (42-76); Platelet Estimate Normal; Total Cells Counted 100
--- NOTE | 2020-08-10 09:11 | HMH.PULMPN ---
Internal Medicine - PN: Subj *Date: 08/10/20 *Time: 10:37 Interval history: No acute respiratory events overnight Exam - Constitutional Constitutional:: Present: no acute distress, comfortable - HENMT Exam HENMT: Present: atraumatic - Eye Exam Eyes:: Present: eyelids normal - Neck Exam Neck:: Present: thyroid normal - Respiratory Exam Respiratory:: Present: no respiratory distress, crackles - Cardiovascular Exam Cardiac:: Present: S1, S2 - GI Exam GI:: Present: soft, no hepatosplenomegaly - Skin Exam Skin: Present: warm, no rash - Neurological Exam Neurological: Present: awake - Extremities Exam Extremities: Present: no cyanosis, no clubbing, edema Assessment and Plan (1) Respiratory failure with hypoxia Status: Acute Qualifiers: Chronicity: acute Qualified Code(s): J96.01 - Acute respiratory failure with hypoxia Category: Medical Code(s): J96.91 - Respiratory failure, unspecified with hypoxia (2) Pneumonia due to COVID-19 virus Status: Acute Category: Medical Code(s): U07.1 - COVID-19; J12.82 - Pneumonia due to coronavirus disease 2019 (3) Anemia Status: Acute Category: Medical Code(s): D64.9 - Anemia, unspecified (4) GI bleed Status: Acute Category: Medical Code(s): K92.2 - Gastrointestinal hemorrhage, unspecified (5) Staphylococcus epidermidis bacteremia Status: Acute Category: Medical Code(s): R78.81 - Bacteremia; B95.7 - Other staphylococcus as the cause of diseases classified elsewhere (6) CAD (coronary artery disease), [place] coronary artery Status: Chronic Qualifiers: [place] vs. transplanted heart: [place] heart Associated angina: without angina Qualified Code(s): I25.10 - Atherosclerotic heart disease of [place] coronary artery without angina pectoris Category: Medical Code(s): I25.10 - Atherosclerotic heart disease of [place] coronary artery without angina pectoris (7) DM2 (diabetes mellitus, type 2) Status: Chronic Qualifiers: Diabetes mellitus [employer] customer [employer] insulin use: without nursing home use Diabetes mellitus complication status: without complication Qualified Code(s): E11.9 - Type 2 diabetes mellitus without complications Category: Medical Code(s): E11.9 - Type 2 diabetes mellitus without complications (8) History of left below knee amputation Status: Chronic Category: Medical Code(s): Z89.512 - Acquired absence of left leg below knee (9) History of osteomyelitis Status: Chronic Category: Medical Code(s): Z87.39 - Personal history of other diseases of the musculoskeletal system and connective tissue (10) Sepsis Status: Acute Qualifiers: Sepsis type: sepsis due to unspecified organism Sepsis acute organ dysfunction status: with acute organ dysfunction Severe sepsis acute organ dysfunction type: acute respiratory failure Acute respiratory failure type: with hypoxia Severe sepsis shock status: with septic shock Qualified Code(s): A41.9 - Sepsis, unspecified organism; R65.21 - Severe sepsis with septic shock; J96.01 - Acute respiratory failure with hypoxia Category: Medical Code(s): A41.9 - Sepsis, unspecified organism (11) Elevated LFTs Status: Acute Category: Medical Code(s): R79.89 - Other specified abnormal findings of blood chemistry (12) Staphylococcal meningitis Status: Acute Category: Medical Code(s): G00.3 - Staphylococcal meningitis (13) Sacral wound Status: Acute Category: Medical Code(s): S31.000A - Unspecified open wound of lower back and pelvis without penetration into retroperitoneum, initial encounter - Assessment and plan all Dx Assessment and Plan for all problems:: #COVID-19 pneumonia: #Acute hypoxic respiratory failure requiring mechanical ventilation: 69-year-old no prior respiratory complaints never smoker with recent diagnosis of COVID-19 present with worsening respiratory failure cough and productive phlegm. CT showed bilateral di
--- NOTE | 2020-08-10 10:50 | PC.NURSE ---
called and obtained verbal consent for Dr. Franco to perform BS debridement of coccyx wound. gave consent. Ramya Roman RN verified.
[2020-08-10 11:19] LABS: POC Glucose,Bedside 191 (70-110)
--- NOTE | 2020-08-10 11:30 | PC.NURSE ---
Dr. Franco @ [facility] to perform procedure. Pictures were taken of wound after debridement and will be placed on pt's chart.
--- NOTE | 2020-08-10 12:31 | PC.NURSE ---
called and updated her.
--- NOTE | 2020-08-10 12:47 | HMH.GSCON ---
*Admission Date: 06/27/20 *Reason for consult:: Debridement of sacral decubitus *History of present illness: Patient is a 69-year-old male who has had prolonged hospitalization for Covid pneumonia beginning on 06/27/2020. He is required prolonged mechanical ventilation ultimately having tracheostomy performed and has had percutaneous endoscopic gastrostomy. He has had recent fevers without known source and bacteremia. He has had a central line removed and replaced with a PICC line. He does have obvious sacral decubitus pressure ulcer present for approximately 2 weeks. Surgery was asked to consult to debride this as a possible source. 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, left), Reports dizziness, Reports headache(s), Reports weakness, Denies numbness [facility] History I have reviewed the patient's past medical history: Yes Medical History: Reports:: Coronary Artery Disease (Stent placement March 2018.), Diabetes Mellitus Type 2, Gastroesophageal Reflux Disease(GERD), Hyperlipidemia, Hypertension Denies:: Cancer, Diabetes Mellitus Type 1, MRSA, Pulmonary Embolism *Have you ever received a pneumonia vaccine?: No *Have you received a flu vaccine this season?: Yes Other Medical History: Reports: Other Anesthesia experience/problems:: No known anesthetic complications Laterality Cases: Bilateral: Cataract (2018) Other Surgeries: Yes: Cardiac Catheterization, Coronary Stent, Other (Lumbar disc with fusion 2006) Amputation: Yes (left BKA) Fractures: Yes (left tib/fib) - *Social History Last grade of school completed: Some college Smoking Status: Never smoker Alcohol Intake: never Alcohol Intake Frequency:: holidays/special occasions only Substance Use Type: denies use *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) Housing: house Household Members: spouse *Travel in the last 8 weeks: None Family Hx:: Coronary Artery Disease, Other (1 son and 1 daughter, healthy) Meds Home Medications Medication Instructions Recorded Confirmed Type metformin 1,000 mg tablet 1,000 mg PO BID 04/08/18 06/28/20 History pantoprazole 40 mg tablet,delayed 40 mg PO DAILY 04/08/18 06/28/20 History release tamsulosin 0.4 mg capsule 0.4 mg PO DAILY 04/08/18 06/28/20 History dapagliflozin 10 mg tablet 10 mg PO DAILY 30 Days #30 tab 01/14/19 06/28/20 History Clopidogrel Bisulfate [Plavix] 75 mg PO DAILY 06/27/20 06/28/20 History Losartan Potassium [Cozaar 50mg 50 mg PO DAILY 06/27/20 06/28/20 History Tablets] Metoprolol Succinate [Metoprolol 25 mg PO DAILY 06/27/20 06/27/20 History Succinate 25mg Tablet*] Aspirin [Aspirin 81mg chewable 81 mg PO DAILY 06/28/20 06/28/20 History tab] Azithromycin 250 mg PO DAILY 06/28/20 06/28/20 History Ketorolac Tromethamine 1 drp EYE-RIGHT BID 06/28/20 06/28/20 History Prednisolone Acetate/Pf 1 drop OP BID 06/28/20 06/28/20 History [Prednisolone Acet 1% Eye Drop] Atorvastatin Calcium [Lipitor 40mg 40 mg PO DAILY 06/29/20 06/29/20 History Tab] Multivitamin 1 each PO DAILY 06/29/20 06/29/20 History Allergies Allergy/AdvReac Type Severity Reaction Status Date / Time ceftriaxone [From Rocephin] Allergy Mild Verified 05/24/20 09:28 Exam Vital signs and Labs for Last 24 Hours: Temp Pulse Resp BP Pulse Ox 100.3 F H 102 H 26 H 146/80 H 97 08/10/20 12:00 08/10/20 12:28 08/10/20 12:00 08/10/20 12:00 08/10/20 12:00 Laboratory Results - last 24 hr 08/09/20 22:59: POC Glucose 141 H 08/09/20 : Specimen Source Cancelled, O2 % Cancelled, ABG pH Cancelled, ABG pCO2 Cancelled, ABG pO2 Cancelled, ABG HCO3 Cancelled, ABG Total CO2 Cancelled, ABG O2 Saturation Cancelled, ABG Base Excess Cancelled, Michele Test Cancelled, ABG Lactate Cancelled, Vent Rate Cancelled, Tidal Volume Cancelled, PEEP Cancelled 08/10/20 05:20: WBC 12.3 H, RBC 3.11 L, Hgb 8.7 L, Hct 28.1 L, MCV 90.4, MCH 28.1, MCHC 31.1 L, RDW
--- NOTE | 2020-08-10 12:50 | P.OP_ITS ---
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 He is required prolonged mechanical ventilation ultimately having tracheostomy performed and has had percutaneous endoscopic gastrostomy. He has had recent fevers without known source and bacteremia. He has had a central line removed and replaced with a PICC line. He does have obvious sacral decubitus pressure ulcer present for approximately 2 weeks. Surgery was asked to consult to debride this as a possible source. Operative findings:: He had mixed some full-thickness necrosis of skin with some necrotic subcutaneous tissue. There was some dusky muscle and some questionable fascia. There is no purulence. Operative note:: Patient was positioned in the lateral position. The area was prepped with Betadine. Incision was made in the central area where there was obvious leathery eschar necrosis. Scalpel dissection was used to debride obvious necrotic eschar. Underlying tissues were somewhat necrotic as well. With careful slowly progressive sharp debridement using scalpel dissection and some use of Funk scissor dissection obviously necrotic tissues were debrided. Upon reaching relatively viable appearing tissues dissection was ceased. Electrocautery was brought from the operating room and hemostasis was achieved with use of electrocautery. The wound was packed with a saline moistened Kerlix gauze and covered with clean dry sterile dressing. We will initiate dressing changes. May ultimately require negative pressure wound therapy type dressing. Could require additional debridement in the operating room. Condition: stable Disposition: no change Complications:: None immediately apparent
--- NOTE | 2020-08-10 13:50 | PC.WOUNDNOTE ---
Wound Location: coccyx area Length: Width: Depth: Undermining Y/N: Tunneling cm: Granulation %: Slough/necrotic tissue %: Inflammation/swelling Y/N: Pain and/or tenderness Y/N: Exudate: Serosanguinous Sanguinous Serosanguinous Seropurulent Purulent Color: Clear Carmen Cloudy/milky Wilber Red Green Yellow Brown Smith Blue Consistency: Thick Thin Amount: None Scant Small Moderate Large Odor Y/N:
--- NOTE | 2020-08-10 14:04 | DIET.NUTRFU ---
Addendum entered by Chela Mccabe 08/15/20 13:40: Pt continues with good toleration- now at goal rate of 60ml/h. Electrolytes, renal labs, and hemo labs all remain stable. He has had 2 BMs. Weight is up 6#. BG avg. 210. Pt to dc to SNF for further care, recommend continuing same or similar regimen as has been tolerated at [facility] of [facility] 1.5 at 60ml/h with water flushes of 200ml q 4h. Addendum entered by Chela Mccabe 08/13/20 13:18: Pt has tolerated increased goal rate well. Electrolytes wnl, renal function and GI bleed stable, No BM since 08/10, weight down 5#, BG avg.=215. Nutritional care plan to cautiously increase energy, protein, and fluids as tolerated to support increased needs for wound healing. Order changed to increase tube feed rate to 60ml/h, will monitor and alter as indicated. Recommend increasing tube feed rate by 6ml/h once as tolerate to new goal rate of 60ml/h, continue water flushes of 200ml q 4h. This regimen provides 2160kcal, 90g protein, and 1130ml free water (total fluids with [id number]) Original Note: Pt tolerating PEG feeds well. Had another BM today. BUN stable, H&H stable. BG avg. 185. Electrolytes WNL. Nutritional care plan to cautiously increase TF rate to within 85% of increased energy needs and to provide 1g/kg BW protein for wound healing. Change made in TF diet order and stated below: Recommend increasing tube feed rate by 9ml/h once as tolerated to new goal rate of 54ml/h, recommend slightly decreasing water flushes to 200ml q 4h. This regimen provides 1944kcal, 81g protein, 137g cho, 121 g fat, and 1017ml free water (total fluids with [id number]). Continuing to monitor closely and alter as indicated.
--- NOTE | 2020-08-10 16:00 | PC.NURSE ---
tubefeed rate increased to 54mL/hr (new goal rate) per dietary.
[2020-08-10 17:19] LABS: POC Glucose,Bedside 335 (70-110)
[2020-08-11] VITALS (35 sets, daily range): BP systolic 109–147; BP diastolic 66–99; PULSE 29–122; RESP 0–33; TEMP 36.5–38.2; O2SAT 85–98; BMI 23.5
[2020-08-11 01:10] LABS: POC Glucose,Bedside 167 (70-110)
[2020-08-11 05:50] LABS: POC Glucose,Bedside 129 (70-110)
[2020-08-11 11:00] LABS: Chloride 98 mmol/L (98-107)
[2020-08-11 11:01] LABS: Sodium 142 mmol/L (136-145)
[2020-08-11 11:03] LABS: Alanine Aminotransferase 37 U/L (12-78); Albumin Level 2.8 g/dl (3.5-5.0); Alkaline Phosphatase 100 U/L (38-126); Aspartate Amino Transferase 28 U/L (17-59); Bilirubin,Total 0.6 mg/dl (0.2-1.3); Blood Urea Nitrogen 48 mg/dl (9-20); Creatinine Clearance Estimated 76 mL/min (50-200); Estimated Glomerular Filt Rate 67 ml/min (>60); GFR (African American) 81 ML/MIN (>60)
[2020-08-11 11:04] LABS: Albumin/Globulin Ratio 0.8 (1.1-1.8); Calcium 8.1 mg/dl (8.4-10.2); Globulin 3.4 g/dL (1.3-3.2); Glucose 251 mg/dl (74-100); Total Protein,Serum 6.2 g/dl (6.3-8.2)
[2020-08-11 11:08] LABS: Basophils # 0.1 K/mm3 (0-0.2); Basophils % 0.4 % (0.1-2.0); Eosinophils % 0.2 % (0.1-12.0); Hematocrit 30.2 % (42.0-52.0); Hemoglobin 9.3 g/dL (14.1-18.0); Lymphocytes # 0.6 K/mm3 (0.7-4.5); Lymphocytes % 3.5 % (10-50); Mean Corpuscular HGB Conc 30.8 g/dL (31.8-35.4); Mean Corpuscular Hemoglobin 28.3 pg (27.0-31.2); Mean Corpuscular Volume 91.8 fl (80-94); Mean Platelet Volume 8.9 fl (7.4-10.4); Monocytes # 0.8 K/mm3 (0.1-1.0); Monocytes % 4.9 % (1.7-9.3); Neutrophils # 14.7 K/mm3 (1.8-7.8); Neutrophils % 90.9 % (37.0-80.0); Platelet Count 291 K/mm3 (142-424); Red Blood Count 3.28 M/mm3 (4.60-6.20); Red Cell Distribution Width 16.6 % (11.5-17.5); White Blood Count 16.2 K/mm3 (4.8-10.8)
[2020-08-11 11:11] LABS: Carbon Dioxide 38 mmol/L (22.0-30.0)
[2020-08-11 11:20] LABS: MANUAL DIFFERENTIAL MANUAL DIFFERENTIAL (MANUAL DIFF)
--- NOTE | 2020-08-11 11:22 | HMH.ACPN2 ---
<Akila Mead - Last Filed: 08/11/20 11:22> Internal Medicine - PN: Subj *Date: 08/11/20 *Time: 11:22 Interval history: Sacral decubitus was debrided yesterday by Dr. Franco. Patient's white blood cell count is still elevated, but his H&H is stable. He is able to answer questions today by shaking his head yes and no. Repeat chest x-ray yesterday showed worsened appearance of the lungs. The nursing staff is concerned because the patient is very down and depressed. They are questioning whether he could have a repeat nasal swab and if negative, could be moved out of the Covid unit into a room on the second floor where his family can visit. Exam Vital signs and Labs for Last 24 Hours: Temp Pulse Resp BP Pulse Ox 100.2 F H 122 H 30 H 144/87 H 86 L 08/11/20 10:00 08/11/20 10:00 08/11/20 10:00 08/11/20 10:00 08/11/20 10:45 Laboratory Results - last 24 hr 08/10/20 17:03: POC Glucose 335 H* 08/10/20 23:10: POC Glucose 167 H 08/11/20 05:42: POC Glucose 129 H 08/11/20 10:40: WBC 16.2 H D, RBC 3.28 L, Hgb 9.3 L, Hct 30.2 L, MCV 91.8, MCH 28.3, MCHC 30.8 L, RDW 16.6, Plt Count 291 D, MPV 8.9, Neut % (Auto) 90.9 H, Lymph % (Auto) 3.5 L, [place] % (Auto) 4.9, Eos % (Auto) 0.2, Baso % (Auto) 0.4, Neut # (Auto) 14.7 H, Lymph # (Auto) 0.6 L, [place] # (Auto) 0.8, Eos # (Auto) 0.0, Baso # (Auto) 0.1 08/11/20 10:40: Sodium 142, Potassium 4.0, Chloride 98, Carbon Dioxide 38 H, Anion Gap 10.0, BUN 48 H, Creatinine 1.10, Estimated Creat Clear 76, Estimated GFR 67, Est GFR ( Amer) 81, Glucose 251 H, Calcium 8.1 L, Total Bilirubin 0.6, AST 28, ALT 37, Alkaline Phosphatase 100, Total Protein 6.2 L, Albumin 2.8 L D, Globulin 3.4 H, Albumin/Globulin Ratio 0.8 L I & O for Last 24 hours: Intake & Output 08/08/20 08/09/20 08/10/20 08/11/20 11:59 11:59 11:59 11:59 Intake Total 2448 / 2808 2466 / 2466 2600 / 2600 2822 / 2822 Output Total 1415 / 1515 3265 / 3265 2170 / 2310 2306 / 2306 Balance 1033 / 1293 -799 / -799 430 / 290 516 / 516 Weight 193 lb 9 oz 193 lb 7 oz 179 lb 183 lb 6 oz Microbiology Reports for the Last 24 Hours: Microbiology 08/09/20 14:20 Lung,Right Lower Lobe Gram Stain - Final 08/09/20 14:20 Lung,Right Lower Lobe Bronchial Aspirate Culture - Preliminary - Constitutional no acute distress - *Routine Respiratory Exam Present: decreased breath sounds - *Routine Cardiovascular Exam Present: RRR - *Routine Abdominal Exam Present: soft, normoactive bowel sounds. Absent: tenderness - *Routine Extremities Exam Present: edema (of bilateral arms and right leg). Absent: cyanosis, clubbing - *Routine Skin Exam Present: pallor - *Routine Neurological Exam Present: alert Able to answer questions by shaking his head yes and no Assessment and Plan (1) Respiratory failure with hypoxia Status: Acute Qualifiers: Chronicity: acute Qualified Code(s): J96.01 - Acute respiratory failure with hypoxia Category: Medical Code(s): J96.91 - Respiratory failure, unspecified with hypoxia (2) Pneumonia due to COVID-19 virus Status: Acute Category: Medical Code(s): U07.1 - COVID-19; J12.82 - Pneumonia due to coronavirus disease 2019 (3) Anemia Status: Acute Category: Medical Code(s): D64.9 - Anemia, unspecified (4) GI bleed Status: Acute Category: Medical Code(s): K92.2 - Gastrointestinal hemorrhage, unspecified (5) Staphylococcus epidermidis bacteremia Status: Acute Category: Medical Code(s): R78.81 - Bacteremia; B95.7 - Other staphylococcus as the cause of diseases classified elsewhere (6) CAD (coronary artery disease), [place] coronary artery Status: Chronic Qualifiers: [place] vs. transplanted heart: [place] heart Associated angina: without angina Qualified Code(s): I25.10 - Atherosclerotic heart disease of [place] coronary artery without angina pectoris Category: Medical Code(s): I25.10 - Atherosclerotic heart disease of [place] coronary arter
[2020-08-11 11:31] LABS: Lymphocytes % 4 % (10-50); Monocytes % 4 % (2-9); Neutrophils % 92 % (42-76); Total Cells Counted 100
[2020-08-11 11:32] LABS: Hypochromasia 1+; Platelet Estimate Normal
[2020-08-11 18:10] LABS: POC Glucose,Bedside 230 (70-110)
--- NOTE | 2020-08-11 19:13 | PC.NURSE ---
No acute changes. Low grade temp this AM, treated w/ tylenol. Trach care performed @ 1600. Pt suctioned Q2H/prn. Secretions have been minimal, robinol given per AUG. Dressing to coccyx changed per MD orders. [place]cal[place] care performed this shift. No BM this shift. Tube feeds @ goal rate. Repositioned Q2H. Repeat blood cultures obtained per MD orders.
[2020-08-11 23:30] LABS: POC Glucose,Bedside 242 (70-110)
[2020-08-12] VITALS (33 sets, daily range): BP systolic 129–167; BP diastolic 70–98; PULSE 85–111; RESP 17–37; TEMP 37.1–38.1; O2SAT 86–97; BMI 23.0
[2020-08-12 04:41] LABS: POC Glucose,Bedside 190 (70-110)
--- NOTE | 2020-08-12 08:54 | HMH.ACPN2 ---
Internal Medicine - PN: Subj *Date: 08/12/20 *Time: 08:54 Interval history: No new events noted overnight. Exam Vital signs and Labs for Last 24 Hours: Temp Pulse Resp BP Pulse Ox 98.7 F 109 H 26 H 147/84 H 90 L 08/12/20 03:34 08/12/20 07:23 08/12/20 06:57 08/12/20 06:25 08/12/20 07:23 Laboratory Results - last 24 hr 08/11/20 10:40: WBC 16.2 H D, RBC 3.28 L, Hgb 9.3 L, Hct 30.2 L, MCV 91.8, MCH 28.3, MCHC 30.8 L, RDW 16.6, Plt Count 291 D, MPV 8.9, Neut % (Auto) 90.9 H, Lymph % (Auto) 3.5 L, [place] % (Auto) 4.9, Eos % (Auto) 0.2, Baso % (Auto) 0.4, Neut # (Auto) 14.7 H, Lymph # (Auto) 0.6 L, [place] # (Auto) 0.8, Eos # (Auto) 0.0, Baso # (Auto) 0.1, Total Counted 100, Neutrophils % (Manual) 92 H, Lymphocytes % (Manual) 4 L, Monocytes % (Manual) 4, Platelet Estimate Normal, Hypochromasia 1+ 08/11/20 10:40: Sodium 142, Potassium 4.0, Chloride 98, Carbon Dioxide 38 H, Anion Gap 10.0, BUN 48 H, Creatinine 1.10, Estimated Creat Clear 76, Estimated GFR 67, Est GFR ( Amer) 81, Glucose 251 H, Calcium 8.1 L, Total Bilirubin 0.6, AST 28, ALT 37, Alkaline Phosphatase 100, Total Protein 6.2 L, Albumin 2.8 L D, Globulin 3.4 H, Albumin/Globulin Ratio 0.8 L 08/11/20 17:58: POC Glucose 230 H 08/11/20 23:22: POC Glucose 242 H 08/12/20 04:31: POC Glucose 190 H Vital Signs - 24 hr 08/11/20 09:00 08/11/20 10:00 08/11/20 10:45 Temperature 100.3 F H 100.2 F H Pulse Rate Pulse Rate [Apical] 115 H 122 H Respiratory Rate 29 H 30 H Blood Pressure [Right Arm] 147/85 H 144/87 H 02 Sat by Pulse Oximetry 88 L 91 L 86 L 08/11/20 11:00 08/11/20 12:00 08/11/20 13:00 Temperature 99.7 F H 100.7 F H 99.4 F Pulse Rate 110 H Pulse Rate [Apical] 106 H 105 H 103 H Respiratory Rate 23 32 H 30 H Blood Pressure [Right Arm] 142/87 H 142/80 H 143/80 H 02 Sat by Pulse Oximetry 85 L 91 L 90 L 08/11/20 13:45 08/11/20 14:00 08/11/20 14:10 Temperature 98.2 F Pulse Rate 100 H Pulse Rate [Apical] 100 H Respiratory Rate 23 0 L Blood Pressure [Right Arm] 135/78 02 Sat by Pulse Oximetry 91 L 90 L 91 L 08/11/20 15:00 08/11/20 15:25 08/11/20 16:00 Temperature 98.2 F Pulse Rate 110 H Pulse Rate [Apical] 97 H 99 H Respiratory Rate 28 H 28 H 20 Blood Pressure [Right Arm] 118/66 129/70 02 Sat by Pulse Oximetry 91 L 91 L 08/11/20 17:00 08/11/20 18:00 08/11/20 18:43 Temperature 99.3 F 98.3 F Pulse Rate Pulse Rate [Apical] 116 H 102 H Respiratory Rate 33 H 16 28 H Blood Pressure [Right Arm] 133/78 131/81 02 Sat by Pulse Oximetry 85 L 88 L 92 L 08/11/20 19:00 08/11/20 19:44 08/11/20 20:00 Temperature 98.0 F 97.9 F Pulse Rate 93 H 95 H Pulse Rate [Apical] 93 H 94 H Respiratory Rate 17 24 Blood Pressure [Right Arm] 137/80 137/80 02 Sat by Pulse Oximetry 91 L 92 L 08/11/20 21:00 08/11/20 21:36 08/11/20 22:00 Temperature 97.8 F 98.0 F Pulse Rate Pulse Rate [Apical] 99 H 97 H Respiratory Rate 22 25 H 27 H Blood Pressure [Right Arm] 121/69 120/73 02 Sat by Pulse Oximetry 92 L 92 L 08/11/20 22:31 08/11/20 23:00 02/20/21 23:48 Temperature 97.7 F 98.0 F Pulse Rate Pulse Rate [Apical] 85 83 Respiratory Rate 28 H 26 H 26 H Blood Pressure [Right Arm] 109/67 L 133/77 02 Sat by Pulse Oximetry 90 L 91 L 92 L 08/12/20 00:00 08/12/20 00:35 08/12/20 01:22 Temperature Pulse Rate 87 Pulse Rate [Apical] 85 87 Respiratory Rate 29 H 22 Blood Pressure [Right Arm] 129/73 143/83 H 02 Sat by Pulse Oximetry 93 L 96 08/12/20 02:16 08/12/20 03:00 08/12/20 03:34 Temperature 98.7 F Pulse Rate Pulse Rate [Apical] 98 H 94 H Respiratory Rate 27 H 23 24 Blood Pressure [Right Arm] 146/78 H 135/75 02 Sat by Pulse Oximetry 92 L 89 L 92 L 08/12/20 04:00 08/12/20 04:45 08/12/20 05:34 Temperature Pulse Rate 95 H Pulse Rate [Apical] 104 H 103 H Respiratory Rate 27 H 30 H Blood Pressure [Right Arm] 142/77 H 145/82 H 02 Sat by Pulse Oximetry 97 91 L 08/12/20 0
--- NOTE | 2020-08-12 09:41 | HMH.ACPN ---
Internal Medicine - PN: Subj *Date: 08/12/20 *Time: 09:41 Exam Vital signs and Labs for Last 24 Hours: Temp Pulse Resp BP Pulse Ox 100.0 F H 103 H 20 139/86 87 L 08/12/20 09:00 08/12/20 09:00 08/12/20 09:00 08/12/20 09:00 08/12/20 09:00 Laboratory Results - last 24 hr 08/11/20 10:40: WBC 16.2 H D, RBC 3.28 L, Hgb 9.3 L, Hct 30.2 L, MCV 91.8, MCH 28.3, MCHC 30.8 L, RDW 16.6, Plt Count 291 D, MPV 8.9, Neut % (Auto) 90.9 H, Lymph % (Auto) 3.5 L, [place] % (Auto) 4.9, Eos % (Auto) 0.2, Baso % (Auto) 0.4, Neut # (Auto) 14.7 H, Lymph # (Auto) 0.6 L, [place] # (Auto) 0.8, Eos # (Auto) 0.0, Baso # (Auto) 0.1, Total Counted 100, Neutrophils % (Manual) 92 H, Lymphocytes % (Manual) 4 L, Monocytes % (Manual) 4, Platelet Estimate Normal, Hypochromasia 1+ 08/11/20 10:40: Sodium 142, Potassium 4.0, Chloride 98, Carbon Dioxide 38 H, Anion Gap 10.0, BUN 48 H, Creatinine 1.10, Estimated Creat Clear 76, Estimated GFR 67, Est GFR ( Amer) 81, Glucose 251 H, Calcium 8.1 L, Total Bilirubin 0.6, AST 28, ALT 37, Alkaline Phosphatase 100, Total Protein 6.2 L, Albumin 2.8 L D, Globulin 3.4 H, Albumin/Globulin Ratio 0.8 L 08/11/20 17:58: POC Glucose 230 H 08/11/20 23:22: POC Glucose 242 H 08/12/20 04:31: POC Glucose 190 H I & O for Last 24 hours: Intake & Output 08/09/20 08/10/20 08/11/20 08/12/20 23:59 23:59 23:59 23:59 Intake Total 2566 / 2796 2605 / 2605 1887 / 1887 1548 / 1548 Output Total 3565 / 3655 1925 / 1925 3111 / 3111 930 / 930 Balance -999 / -859 680 / 680 -1224 / -1224 618 / 618 Weight 87.742 kg 81.193 kg 83.178 kg 81.278 kg Microbiology Reports for the Last 24 Hours: Microbiology 08/09/20 14:20 Lung,Right Lower Lobe Gram Stain - Final 08/09/20 14:20 Lung,Right Lower Lobe Bronchial Aspirate Culture - Preliminary Yeast 08/06/20 11:13 Blood Blood Culture - Final NO GROWTH AFTER 5 DAYS Assessment and Plan (1) Respiratory failure with hypoxia Status: Acute Qualifiers: Chronicity: acute Qualified Code(s): J96.01 - Acute respiratory failure with hypoxia Category: Medical Code(s): J96.91 - Respiratory failure, unspecified with hypoxia (2) Pneumonia due to COVID-19 virus Status: Acute Category: Medical Code(s): U07.1 - COVID-19; J12.82 - Pneumonia due to coronavirus disease 2019 (3) Anemia Status: Acute Category: Medical Code(s): D64.9 - Anemia, unspecified (4) GI bleed Status: Acute Category: Medical Code(s): K92.2 - Gastrointestinal hemorrhage, unspecified (5) Staphylococcus epidermidis bacteremia Status: Acute Category: Medical Code(s): R78.81 - Bacteremia; B95.7 - Other staphylococcus as the cause of diseases classified elsewhere (6) CAD (coronary artery disease), [place] coronary artery Status: Chronic Qualifiers: [place] vs. 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 insulin use: without fpc use Diabetes mellitus complication status: without complication Qualified Code(s): E11.9 - Type 2 diabetes mellitus without complications Category: Medical Code(s): E11.9 - Type 2 diabetes mellitus without complications (8) History of left below knee amputation Status: Chronic Category: Medical Code(s): Z89.512 - Acquired absence of left leg below knee (9) History of osteomyelitis Status: Chronic Category: Medical Code(s): Z87.39 - Personal history of other diseases of the musculoskeletal system and connective tissue (10) Sepsis Status: Acute Qualifiers: Sepsis type: sepsis due to unspecified organism Sepsis ac
[2020-08-12 12:11] LABS: POC Glucose,Bedside 319 (70-110)
--- NOTE | 2020-08-12 17:34 | PC.NURSE ---
No acute changes this shift. It was cleared by Dr. Sims that pt may have his come and visit him today. Pt's was assisted in donning PPE and sat @ pt's bedside while using IPad to also communicate w/ other family members. Pt seemed to enjoy this and made appropriate gestures when talking to such as nodding to yes/no questions. Pt was given a full bath and linen change. Dressing to coccyx changed per MD orders. Surrounding tissue is pink, wound bed w/ granular tissue, minimal amount of serosang drainage present. Pt turned Q2H, repositioned. [place] care performed. No BM this shift. Tube Feed @ goal rate. Low grade temp this AM, treated w/ tylenol per AUG. Trach care performed. Oral care and suctioning, secretions minimal.
[2020-08-12 17:38] LABS: POC Glucose,Bedside 194 (70-110)
[2020-08-12 23:50] LABS: POC Glucose,Bedside 238 (70-110)
[2020-08-13] VITALS (34 sets, daily range): BP systolic 120–173; BP diastolic 62–123; PULSE 70–107; RESP 18–34; TEMP 36.2–37.9; O2SAT 82–99; BMI 223859.7
[2020-08-13 06:15] LABS: POC Glucose,Bedside 220 (70-110)
[2020-08-13 06:28] LABS: Basophils # 0.1 K/mm3 (0-0.2); Basophils % 0.4 % (0.1-2.0); Eosinophils % 0.3 % (0.1-12.0); Hematocrit 28.2 % (42.0-52.0); Lymphocytes # 0.6 K/mm3 (0.7-4.5); Lymphocytes % 3.7 % (10-50); Mean Corpuscular HGB Conc 31.9 g/dL (31.8-35.4); Mean Corpuscular Hemoglobin 28.7 pg (27.0-31.2); Mean Platelet Volume 8.1 fl (7.4-10.4); Monocytes % 6.3 % (1.7-9.3); Neutrophils # 13.6 K/mm3 (1.8-7.8); Neutrophils % 89.3 % (37.0-80.0); Platelet Count 272 K/mm3 (142-424); Red Blood Count 3.13 M/mm3 (4.60-6.20); Red Cell Distribution Width 16.4 % (11.5-17.5); White Blood Count 15.3 K/mm3 (4.8-10.8)
[2020-08-13 06:32] LABS: MANUAL DIFFERENTIAL MANUAL DIFFERENTIAL (MANUAL DIFF)
[2020-08-13 06:33] LABS: Chloride 98 mmol/L (98-107); Potassium 4.1 mmoL/L (3.5-5.1); Sodium 142 mmol/L (136-145)
[2020-08-13 06:36] LABS: Alanine Aminotransferase 31 U/L (12-78); Albumin Level 2.6 g/dl (3.5-5.0); Albumin/Globulin Ratio 0.8 (1.1-1.8); Alkaline Phosphatase 120 U/L (38-126); Aspartate Amino Transferase 27 U/L (17-59); Bilirubin,Total 0.4 mg/dl (0.2-1.3); Blood Urea Nitrogen 51 mg/dl (9-20); Creatinine Clearance Estimated 81 mL/min (50-200); Estimated Glomerular Filt Rate 84 ml/min (>60); GFR (African American) 102 ML/MIN (>60); Globulin 3.2 g/dL (1.3-3.2); Total Protein,Serum 5.8 g/dl (6.3-8.2)
[2020-08-13 06:37] LABS: Calcium 7.8 mg/dl (8.4-10.2); Glucose 223 mg/dl (74-100)
[2020-08-13 07:01] LABS: Anion Gap 5.1 mEq/L (5-15); Carbon Dioxide 43 mmol/L (22.0-30.0)
[2020-08-13 08:46] LABS: Anisocytosis 1+; Lymphocytes % 19 % (10-50); Monocytes % 2 % (2-9); Neutrophils % 79 % (42-76); Platelet Estimate Normal; Total Cells Counted 100
--- NOTE | 2020-08-13 08:56 | HMH.ACPN2 ---
Internal Medicine - PN: Subj *Date: 08/13/20 *Time: 08:56 Interval history: No new events noted overnight. Exam Vital signs and Labs for Last 24 Hours: Temp Pulse Resp BP Pulse Ox 99.2 F 93 H 20 173/80 H 82 L 08/13/20 05:00 08/13/20 06:58 08/13/20 06:58 08/13/20 06:58 08/13/20 06:58 Laboratory Results - last 24 hr 08/12/20 12:03: POC Glucose 319 H* 08/12/20 17:00: POC Glucose 194 H 08/12/20 23:31: POC Glucose 238 H 08/13/20 06:00: WBC 15.3 H, RBC 3.13 L, Hgb 9.0 L, Hct 28.2 L, MCV 90.0, MCH 28.7, MCHC 31.9, RDW 16.4, Plt Count 272, MPV 8.1, Neut % (Auto) 89.3 H, Lymph % (Auto) 3.7 L, [place] % (Auto) 6.3, Eos % (Auto) 0.3, Baso % (Auto) 0.4, Neut # (Auto) 13.6 H, Lymph # (Auto) 0.6 L, [place] # (Auto) 1.0, Eos # (Auto) 0.0, Baso # (Auto) 0.1, Total Counted 100, Neutrophils % (Manual) 79 H, Lymphocytes % (Manual) 19, Monocytes % (Manual) 2, Platelet Estimate Normal, Anisocytosis 1+ 08/13/20 06:00: Sodium 142, Potassium 4.1, Chloride 98, Carbon Dioxide 43 H*, Anion Gap 5.1, BUN 51 H, Creatinine 0.90, Estimated Creat Clear 81, Estimated GFR 84, Est GFR ( Amer) 102 D, Glucose 223 H, Calcium 7.8 L, Total Bilirubin 0.4, AST 27, ALT 31, Alkaline Phosphatase 120, Total Protein 5.8 L, Albumin 2.6 L, Globulin 3.2, Albumin/Globulin Ratio 0.8 L 08/13/20 06:08: POC Glucose 220 H Vital Signs - 24 hr 08/12/20 09:00 08/12/20 10:00 08/12/20 10:02 Temperature 100.0 F H 100.1 F H Pulse Rate Pulse Rate [Apical] 103 H 86 Respiratory Rate 20 20 28 H Blood Pressure [Right Arm] 139/86 146/83 H 02 Sat by Pulse Oximetry 87 L 90 L 88 L 08/12/20 11:00 08/12/20 12:00 08/12/20 13:00 Temperature 100.5 F H 99.7 F H 100.1 F H Pulse Rate 110 H Pulse Rate [Apical] 86 86 103 H Respiratory Rate 25 H 22 18 Blood Pressure [Right Arm] 155/84 H 146/98 H 142/85 H 02 Sat by Pulse Oximetry 93 L 86 L 90 L 08/12/20 13:44 08/12/20 14:00 08/12/20 15:00 Temperature 99.7 F H 99.9 F H Pulse Rate 88 Pulse Rate [Apical] 103 H 104 H Respiratory Rate 30 H 24 23 Blood Pressure [Right Arm] 149/77 H 134/72 02 Sat by Pulse Oximetry 92 L 92 L 94 L 08/12/20 15:12 08/12/20 16:00 08/12/20 17:00 Temperature 99.4 F 99.2 F Pulse Rate 100 H Pulse Rate [Apical] 100 H 94 H Respiratory Rate 28 H 25 H 19 Blood Pressure [Right Arm] 153/81 H 154/87 H 02 Sat by Pulse Oximetry 94 L 92 L 08/12/20 18:00 08/12/20 19:00 08/12/20 19:40 Temperature 99.0 F 98.8 F Pulse Rate 94 H Pulse Rate [Apical] 94 H 89 Respiratory Rate 19 17 21 Blood Pressure [Right Arm] 156/89 H 152/70 H 02 Sat by Pulse Oximetry 92 L 93 L 93 L 08/12/20 20:00 08/12/20 21:00 08/12/20 22:00 Temperature 100.2 F H 99.8 F H Pulse Rate 93 H Pulse Rate [Apical] 94 H 88 Respiratory Rate 22 25 H Blood Pressure [Right Arm] 157/78 H 167/86 H 02 Sat by Pulse Oximetry 92 L 91 L 08/12/20 22:40 08/12/20 23:00 08/13/20 00:00 Temperature 99.6 F Pulse Rate 82 Pulse Rate [Apical] 88 82 Respiratory Rate 23 21 24 Blood Pressure [Right Arm] 162/90 H 154/83 H 02 Sat by Pulse Oximetry 92 L 92 L 96 08/13/20 01:00 08/13/20 02:00 08/13/20 02:50 Temperature 100.3 F H Pulse Rate Pulse Rate [Apical] 76 87 Respiratory Rate 24 25 H 25 H Blood Pressure [Right Arm] 162/82 H 148/76 H 02 Sat by Pulse Oximetry 96 97 91 L 08/13/20 03:00 08/13/20 03:52 08/13/20 04:00 Temperature 100 F H Pulse Rate 80 Pulse Rate [Apical] 87 85 Respiratory Rate 22 23 Blood Pressure [Right Arm] 157/81 H 133/65 02 Sat by Pulse Oximetry 92 L 93 L 08/13/20 05:00 08/13/20 06:00 08/13/20 06:20 Temperature 99.2 F Pulse Rate 104 H Pulse Rate [Apical] 84 85 Respiratory Rate 22 20 Blood Pressure [Right Arm] 137/78 162/68 H 02 Sat by Pulse Oximetry 93 L 92 L 08/13/20 06:58 Temperature Pulse Rate Pulse Rate [Apical] 93 H Respiratory Rate 20 Blood Pressure [Right Arm] 173/80 H 02 Sat by Pulse Oximetry 82 L I & O for Last 24 hours: Intake & O
--- NOTE | 2020-08-13 11:47 | HMH.PULMPN ---
Internal Medicine - PN: Subj *Date: 08/13/20 *Time: 11:47 Interval history: No acute respiratory events overnight Exam - Constitutional Constitutional:: Present: no acute distress, comfortable - HENMT Exam HENMT: Present: atraumatic - Eye Exam Eyes:: Present: eyelids normal - Neck Exam Neck:: Present: thyroid normal - Respiratory Exam Respiratory:: Present: no respiratory distress, normal respiratory effort, crackles - Cardiovascular Exam Cardiac:: Present: S1, S2 - GI Exam GI:: Present: soft, no hepatosplenomegaly - Skin Exam Skin: Present: warm, no rash - Neurological Exam Neurological: Present: alert, awake - Extremities Exam Extremities: Present: no cyanosis, no clubbing, edema - Psychiatric Exam Psychiatric: Present: normal affect Assessment and Plan (1) Respiratory failure with hypoxia Status: Acute Qualifiers: Chronicity: acute Qualified Code(s): J96.01 - Acute respiratory failure with hypoxia Category: Medical Code(s): J96.91 - Respiratory failure, unspecified with hypoxia (2) Pneumonia due to COVID-19 virus Status: Acute Category: Medical Code(s): U07.1 - COVID-19; J12.82 - Pneumonia due to coronavirus disease 2019 (3) Anemia Status: Acute Category: Medical Code(s): D64.9 - Anemia, unspecified (4) GI bleed Status: Acute Category: Medical Code(s): K92.2 - Gastrointestinal hemorrhage, unspecified (5) Staphylococcus epidermidis bacteremia Status: Acute Category: Medical Code(s): R78.81 - Bacteremia; B95.7 - Other staphylococcus as the cause of diseases classified elsewhere (6) CAD (coronary artery disease), [place] coronary artery Status: Chronic Qualifiers: [place] vs. transplanted heart: [place] heart Associated angina: without angina Qualified Code(s): I25.10 - Atherosclerotic heart disease of [place] coronary artery without angina pectoris Category: Medical Code(s): I25.10 - Atherosclerotic heart disease of [place] coronary artery without angina pectoris (7) DM2 (diabetes mellitus, type 2) Status: Chronic Qualifiers: Diabetes mellitus terminal operator insulin use: without fci use Diabetes mellitus complication status: without complication Qualified Code(s): E11.9 - Type 2 diabetes mellitus without complications Category: Medical Code(s): E11.9 - Type 2 diabetes mellitus without complications (8) History of left below knee amputation Status: Chronic Category: Medical Code(s): Z89.512 - Acquired absence of left leg below knee (9) History of osteomyelitis Status: Chronic Category: Medical Code(s): Z87.39 - Personal history of other diseases of the musculoskeletal system and connective tissue (10) Sepsis Status: Acute Qualifiers: Sepsis type: sepsis due to unspecified organism Sepsis acute organ dysfunction status: with acute organ dysfunction Severe sepsis acute organ dysfunction type: acute respiratory failure Acute respiratory failure type: with hypoxia Severe sepsis shock status: with septic shock Qualified Code(s): A41.9 - Sepsis, unspecified organism; R65.21 - Severe sepsis with septic shock; J96.01 - Acute respiratory failure with hypoxia Category: Medical Code(s): A41.9 - Sepsis, unspecified organism (11) Elevated LFTs Status: Acute Category: Medical Code(s): R79.89 - Other specified abnormal findings of blood chemistry (12) Staphylococcal meningitis Status: Acute Category: Medical Code(s): G00.3 - Staphylococcal meningitis (13) Sacral wound Status: Acute Category: Medical Code(s): S31.000A - Unspecified open wound of lower back and pelvis without penetration into retroperitoneum, initial encounter (14) Yeast species isolated but not further identified Status: Acute Category: Medical Code(s): B37.9 - Candidiasis, unspecified - Assessment and plan all Dx Assessment and Plan for all problems:: #COVID-19 pneumonia: #Acute hypoxic respirator
--- NOTE | 2020-08-13 12:37 | PC.NURSE ---
RESP CARE NOTE Placed pt on SBT trial of 10/6 cmH2o at 1000. Pt tolerated fair, but continued for an hour to have apnea periods. The ventilator consistently reverted back to Apnea back up ventilation. At 1105 pt placed back on previous vent settings of Assist Control ventilation. Susan Jaquez MEDICAL DEVICE ASSEMBLER
--- NOTE | 2020-08-13 12:42 | HMH.GSPN ---
Progress Note: A&P (1) Respiratory failure with hypoxia Status: Acute (2) Pneumonia due to COVID-19 virus Status: Acute (3) Anemia Status: Acute (4) GI bleed Status: Acute (5) Staphylococcus epidermidis bacteremia Status: Acute (6) CAD (coronary artery disease), [place] coronary artery Status: Chronic (7) DM2 (diabetes mellitus, type 2) Status: Chronic (8) History of left below knee amputation Status: Chronic (9) History of osteomyelitis Status: Chronic (10) Sepsis Status: Acute (11) Elevated LFTs Status: Acute (12) Staphylococcal meningitis Status: Acute (13) Sacral wound Status: Acute Assessment and plan: Continue current wound care with quarter strength [place] solution twice daily for now. May need additional debridement. VAC dressing may be a possibility. (14) Yeast species isolated but not further identified Status: Acute Exam Vital signs and Labs for Last 24 Hours: Temp Pulse Resp BP Pulse Ox 99.2 F 93 H 25 H 173/80 H 93 L 08/13/20 05:00 08/13/20 06:58 08/13/20 11:05 08/13/20 06:58 08/13/20 11:05 Laboratory Results - last 24 hr 08/12/20 17:00: POC Glucose 194 H 08/12/20 23:31: POC Glucose 238 H 08/13/20 06:00: WBC 15.3 H, RBC 3.13 L, Hgb 9.0 L, Hct 28.2 L, MCV 90.0, MCH 28.7, MCHC 31.9, RDW 16.4, Plt Count 272, MPV 8.1, Neut % (Auto) 89.3 H, Lymph % (Auto) 3.7 L, [place] % (Auto) 6.3, Eos % (Auto) 0.3, Baso % (Auto) 0.4, Neut # (Auto) 13.6 H, Lymph # (Auto) 0.6 L, [place] # (Auto) 1.0, Eos # (Auto) 0.0, Baso # (Auto) 0.1, Total Counted 100, Neutrophils % (Manual) 79 H, Lymphocytes % (Manual) 19, Monocytes % (Manual) 2, Platelet Estimate Normal, Anisocytosis 1+ 08/13/20 06:00: Sodium 142, Potassium 4.1, Chloride 98, Carbon Dioxide 43 H*, Anion Gap 5.1, BUN 51 H, Creatinine 0.90, Estimated Creat Clear 81, Estimated GFR 84, Est GFR ( Amer) 102 D, Glucose 223 H, Calcium 7.8 L, Total Bilirubin 0.4, AST 27, ALT 31, Alkaline Phosphatase 120, Total Protein 5.8 L, Albumin 2.6 L, Globulin 3.2, Albumin/Globulin Ratio 0.8 L 08/13/20 06:08: POC Glucose 220 H I & O for Last 24 hours: Intake & Output 08/11/20 08/12/20 08/13/20 08/14/20 11:59 11:59 11:59 11:59 Intake Total 2822 / 2822 1848 / 1848 400 / 400 Output Total 2531 / 2756 3015 / 3190 2165 / 2165 Balance 291 / 66 -1167 / -1342 -1765 / -1765 Weight 183 lb 6 oz 179 lb 3 oz 174 lb 6 oz Microbiology Reports for the Last 24 Hours: Microbiology 08/09/20 14:20 Lung,Right Lower Lobe - Final Not Reportable 08/09/20 14:20 Lung,Right Lower Lobe - Final Not Reportable 08/09/20 14:20 Lung,Right Lower Lobe - Final Not Reportable 08/09/20 14:20 Lung,Right Lower Lobe Gram Stain - Final 08/09/20 14:20 Lung,Right Lower Lobe Bronchial Aspirate Culture - Preliminary Yeast - *Routine Skin Exam Comments: Wound with some necrosis. Likely necrosis of sacral fascia.
[2020-08-13 19:47] LABS: POC Glucose,Bedside 191 (70-110)
[2020-08-13 19:47] LABS: POC Glucose,Bedside 246 (70-110)
[2020-08-13 20:04] LABS: POC Glucose,Bedside 219 (70-110)
[2020-08-14] VITALS (28 sets, daily range): BP systolic 121–152; BP diastolic 64–90; PULSE 75–118; RESP 19–32; TEMP 36.4–37.1; O2SAT 88–98; BMI 23.3
--- NOTE | 2020-08-14 01:19 | PC.NURSE ---
He has been alert t/o this shift and is nodding yes/no to questions appropriately. He continues on ventilator via trach. Vent settings are as follows: AC mode, TV 480, PEEP 6, Rate 18, FiO2 50%. Urine in f/c is yellow, clear. He denies pain. He was able to move BLE and his left hand. Production Cook weak in his left hand. He nodded yes that he could feel designer/writer touching his right hand but he was unable to move it. Edema noted to all extremities. LBKA. IPCS is in place on his right leg. He continues to receive Pulmocare @ 54mL/hr. Residual at 2000 was 0 and was 5 at 2400.
--- NOTE | 2020-08-14 02:48 | PC.NURSE ---
trach care done-intercannula cleaned, gauze changed and gauze in between back of neck and trach tie.
[2020-08-14 04:49] LABS: POC Glucose,Bedside 205 (70-110)
--- NOTE | 2020-08-14 09:11 | HMH.ACPN2 ---
Internal Medicine - PN: Subj *Date: 08/14/20 *Time: 09:11 Interval history: No events noted overnight. Exam Vital signs and Labs for Last 24 Hours: Temp Pulse Resp BP Pulse Ox 98.8 F 113 H 31 H 144/78 H 93 L 08/14/20 07:55 08/14/20 07:55 08/14/20 07:55 08/14/20 07:55 08/14/20 07:55 Laboratory Results - last 24 hr 08/13/20 12:49: POC Glucose 246 H 08/13/20 18:34: POC Glucose 191 H 08/13/20 19:50: POC Glucose 219 H 08/14/20 04:27: POC Glucose 205 H Vital Signs - 24 hr 08/13/20 10:00 08/13/20 11:00 08/13/20 11:05 Temperature 98.5 F Pulse Rate Pulse Rate [Apical] 96 H 102 H Respiratory Rate 18 18 25 H Blood Pressure [Right Arm] 141/85 H 148/91 H 02 Sat by Pulse Oximetry 94 L 86 L 93 L 08/13/20 12:00 08/13/20 13:00 08/13/20 13:11 Temperature Pulse Rate 90 75 Pulse Rate [Apical] 93 H 82 Respiratory Rate 18 18 Blood Pressure [Right Arm] 127/73 135/76 02 Sat by Pulse Oximetry 96 95 08/13/20 13:48 08/13/20 14:00 08/13/20 15:00 Temperature Pulse Rate Pulse Rate [Apical] 78 73 Respiratory Rate 28 H 18 18 Blood Pressure [Right Arm] 131/80 136/77 02 Sat by Pulse Oximetry 91 L 89 L 94 L 08/13/20 16:00 08/13/20 17:00 08/13/20 18:00 Temperature Pulse Rate 70 Pulse Rate [Apical] 70 87 87 Respiratory Rate 18 18 18 Blood Pressure [Right Arm] 136/75 143/78 H 139/79 02 Sat by Pulse Oximetry 95 95 93 L 08/13/20 19:00 08/13/20 19:10 08/13/20 20:00 Temperature 97.6 F 97.2 F L Pulse Rate 88 80 Pulse Rate [Apical] 79 84 Respiratory Rate 18 34 H 20 Blood Pressure [Right Arm] 129/75 135/77 02 Sat by Pulse Oximetry 95 99 95 08/13/20 21:00 08/13/20 22:00 08/13/20 22:05 Temperature 97.8 F 97.3 F L Pulse Rate Pulse Rate [Apical] 76 78 Respiratory Rate 23 22 26 H Blood Pressure [Right Arm] 138/80 134/76 02 Sat by Pulse Oximetry 95 94 L 94 L 08/13/20 23:00 08/13/20 23:38 08/14/20 00:00 Temperature 97.3 F L 97.6 F Pulse Rate 90 Pulse Rate [Apical] 76 87 Respiratory Rate 24 23 Blood Pressure [Right Arm] 120/62 121/64 02 Sat by Pulse Oximetry 92 L 94 L 95 08/14/20 01:00 08/14/20 02:00 08/14/20 02:20 Temperature 97.6 F 97.8 F Pulse Rate Pulse Rate [Apical] 87 91 H Respiratory Rate 23 23 28 H Blood Pressure [Right Arm] 121/64 135/76 02 Sat by Pulse Oximetry 95 98 90 L 08/14/20 02:31 08/14/20 03:00 08/14/20 04:00 Temperature 97.8 F 97.9 F Pulse Rate 100 H Pulse Rate [Apical] 92 H 96 H Respiratory Rate 21 23 Blood Pressure [Right Arm] 143/83 H 152/84 H 02 Sat by Pulse Oximetry 88 L 93 L 94 L 08/14/20 05:00 08/14/20 06:00 08/14/20 06:40 Temperature 98.0 F 97.8 F Pulse Rate 106 H Pulse Rate [Apical] 103 H 107 H Respiratory Rate 23 22 30 H Blood Pressure [Right Arm] 151/87 H 142/78 H 02 Sat by Pulse Oximetry 92 L 90 L 92 L 08/14/20 06:44 08/14/20 07:55 Temperature 98.8 F Pulse Rate Pulse Rate [Apical] 118 H 113 H Respiratory Rate 25 H 31 H Blood Pressure [Right Arm] 148/81 H 144/78 H 02 Sat by Pulse Oximetry 90 L 93 L I & O for Last 24 hours: Intake & Output 08/11/20 08/12/20 08/13/20 08/14/20 23:59 23:59 23:59 23:59 Intake Total 1887 / 1887 1948 / 1948 1072 / 1072 1036 / 1036 Output Total 3111 / 3111 2885 / 2935 2275 / 2400 1025 / 1025 Balance -1224 / -1224 -937 / -987 -1203 / -1328 Weight 183 lb 6 oz 179 lb 3 oz 174 lb 6 oz 181 lb 9.551 oz Microbiology Reports for the Last 24 Hours: Microbiology 08/11/20 17:45 Blood - Central Blood Culture - Preliminary Gram Positive Cocci 08/09/20 14:20 Lung,Right Lower Lobe Gram Stain - Final 08/09/20 14:20 Lung,Right Lower Lobe Bronchial Aspirate Culture - Final Staphylococcus aureus Yeast 08/11/20 17:45 Blood - Central Blood Culture - Preliminary NO GROWTH AFTER 48 HOURS 08/09/20 14:20 Lung,Right Lower Lobe
--- NOTE | 2020-08-14 09:19 | PC.NURSE ---
notified Dr. Chance that RLL aspirate cx is MRSA positive.
--- NOTE | 2020-08-14 09:45 | PC.NURSE ---
SBT trial started. He did not do well on trach collar trial.
--- NOTE | 2020-08-14 09:57 | PC.NURSE ---
attempted trach collar trial. patient lasted approximately 10 minutes and spo2 dropped into the 70's. placed on cpap trial with peep of 6 and ps of 8. spo2 at 92%
--- NOTE | 2020-08-14 13:22 | HMH.PULMPN ---
Internal Medicine - PN: Subj *Date: 08/14/20 *Time: 13:22 Interval history: No acute respiratory events overnight. Exam - Constitutional Constitutional:: Present: no acute distress, comfortable - HENMT Exam HENMT: Present: atraumatic - Eye Exam Eyes:: Present: eyelids normal - Neck Exam Neck:: Present: thyroid normal - Respiratory Exam Respiratory:: Present: no respiratory distress, normal respiratory effort, crackles - Cardiovascular Exam Cardiac:: Present: S1, S2 - GI Exam GI:: Present: no hepatosplenomegaly - Skin Exam Skin: Present: warm, no rash - Neurological Exam Neurological: Present: awake - Extremities Exam Extremities: Present: no cyanosis, no clubbing, no edema Assessment and Plan (1) Respiratory failure with hypoxia Status: Acute Qualifiers: Chronicity: acute Qualified Code(s): J96.01 - Acute respiratory failure with hypoxia Category: Medical Code(s): J96.91 - Respiratory failure, unspecified with hypoxia (2) Pneumonia due to COVID-19 virus Status: Acute Category: Medical Code(s): U07.1 - COVID-19; J12.82 - Pneumonia due to coronavirus disease 2019 (3) Anemia Status: Acute Category: Medical Code(s): D64.9 - Anemia, unspecified (4) GI bleed Status: Acute Category: Medical Code(s): K92.2 - Gastrointestinal hemorrhage, unspecified (5) Staphylococcus epidermidis bacteremia Status: Acute Category: Medical Code(s): R78.81 - Bacteremia; B95.7 - Other staphylococcus as the cause of diseases classified elsewhere (6) CAD (coronary artery disease), [place] coronary artery Status: Chronic Qualifiers: [place] vs. transplanted heart: [place] heart Associated angina: without angina Qualified Code(s): I25.10 - Atherosclerotic heart disease of [place] coronary artery without angina pectoris Category: Medical Code(s): I25.10 - Atherosclerotic heart disease of [place] coronary artery without angina pectoris (7) DM2 (diabetes mellitus, type 2) Status: Chronic Qualifiers: Diabetes mellitus watermelon inspector insulin use: without watermelon inspector use Diabetes mellitus complication status: without complication Qualified Code(s): E11.9 - Type 2 diabetes mellitus without complications Category: Medical Code(s): E11.9 - Type 2 diabetes mellitus without complications (8) History of left below knee amputation Status: Chronic Category: Medical Code(s): Z89.512 - Acquired absence of left leg below knee (9) History of osteomyelitis Status: Chronic Category: Medical Code(s): Z87.39 - Personal history of other diseases of the musculoskeletal system and connective tissue (10) Sepsis Status: Acute Qualifiers: Sepsis type: sepsis due to unspecified organism Sepsis acute organ dysfunction status: with acute organ dysfunction Severe sepsis acute organ dysfunction type: acute respiratory failure Acute respiratory failure type: with hypoxia Severe sepsis shock status: with septic shock Qualified Code(s): A41.9 - Sepsis, unspecified organism; R65.21 - Severe sepsis with septic shock; J96.01 - Acute respiratory failure with hypoxia Category: Medical Code(s): A41.9 - Sepsis, unspecified organism (11) Elevated LFTs Status: Acute Category: Medical Code(s): R79.89 - Other specified abnormal findings of blood chemistry (12) Staphylococcal meningitis Status: Acute Category: Medical Code(s): G00.3 - Staphylococcal meningitis (13) Sacral wound Status: Acute Category: Medical Code(s): S31.000A - Unspecified open wound of lower back and pelvis without penetration into retroperitoneum, initial encounter (14) Yeast species isolated but not further identified Status: Acute Category: Medical Code(s): B37.9 - Candidiasis, unspecified - Assessment and plan all Dx Assessment and Plan for all problems:: #COVID-19 pneumonia: #Acute hypoxic respiratory failure requiring mechanical ventilation: 69-year-old no prior re
--- NOTE | 2020-08-14 13:29 | PC.NURSE ---
Morphine 2mg IV given prior to trach collar trial.
--- NOTE | 2020-08-14 14:36 | P.PN_ITS ---
Progress Note: A&P (1) Respiratory failure with hypoxia Status: Acute (2) Pneumonia due to COVID-19 virus Status: Acute (3) Anemia Status: Acute (4) GI bleed Status: Acute (5) Staphylococcus epidermidis bacteremia Status: Acute (6) CAD (coronary artery disease), [place] coronary artery Status: Chronic (7) DM2 (diabetes mellitus, type 2) Status: Chronic (8) History of left below knee amputation Status: Chronic (9) History of osteomyelitis Status: Chronic (10) Sepsis Status: Acute (11) Elevated LFTs Status: Acute (12) Staphylococcal meningitis Status: Acute (13) Sacral wound Status: Acute Assessment and plan: For now continue with Dakin's solution moistened gauze dressing packing twice daily. There is evidence of stable persistent necrosis of gluteal muscle and sacral fascia. Could require additional debridement. May ultimately benefit from negative pressure wound therapy type dressing. (14) Yeast species isolated but not further identified Status: Acute Exam Vital signs and Labs for Last 24 Hours: Temp Pulse Resp BP Pulse Ox 98.2 F 93 H 20 144/82 H 93 L 08/14/20 13:53 08/14/20 13:53 08/14/20 13:53 08/14/20 13:53 08/14/20 13:53 Laboratory Results - last 24 hr 08/13/20 12:49: POC Glucose 246 H 08/13/20 18:34: POC Glucose 191 H 08/13/20 19:50: POC Glucose 219 H 08/14/20 04:27: POC Glucose 205 H I & O for Last 24 hours: Intake & Output 08/12/20 08/13/20 08/14/20 08/15/20 11:59 11:59 11:59 11:59 Intake Total 1848 / 1848 628 / 628 1880 / 1880 Output Total 3015 / 3190 2515 / 2515 2830 / 2830 300 / 300 Balance -1167 / -1342 -1887 / -1887 -950 / -950 -300 / -300 Weight 179 lb 3 oz 174 lb 6 oz 181 lb 9.551 oz Microbiology Reports for the Last 24 Hours: Microbiology 08/11/20 17:45 Blood - Central Blood Culture - Preliminary Gram Positive Cocci 08/09/20 14:20 Lung,Right Lower Lobe Gram Stain - Final 08/09/20 14:20 Lung,Right Lower Lobe Bronchial Aspirate Culture - Final Staphylococcus aureus Yeast 08/11/20 17:45 Blood - Central Blood Culture - Preliminary NO GROWTH AFTER 48 HOURS 08/09/20 14:20 Lung,Right Lower Lobe - Final Not Reportable 08/09/20 14:20 Lung,Right Lower Lobe - Final Not Reportable 08/09/20 14:20 Lung,Right Lower Lobe - Final Not Reportable - *Routine Skin Exam Comments: Wound with stable necrosis of some muscle and sacral fascia.
--- NOTE | 2020-08-14 14:43 | PC.NURSE ---
Admit info given to [facility]. Pt will transfer to their facility in the next couple of days.
--- NOTE | 2020-08-14 21:45 | PC.NURSE ---
Patient's dressing on coccyx area changed; current dressing had no drainage and intact. Gauze soaked in 1/4 Dakin's solution and placed in wound bed. ABD pad placed over area and taped in place. Wound is red in color with some white areas. When previous dressing removed, scant amount of sanguineous drainage noted.
[2020-08-15] VITALS (37 sets, daily range): BP systolic 124–147; BP diastolic 72–95; PULSE 73–125; RESP 22–36; TEMP 36–37.4; O2SAT 87–97; BMI 23.3
--- NOTE | 2020-08-15 05:43 | PC.NURSE ---
Patient had a good night and slept for a few hours continuously and other times at intervals. Patient alert and can custom dressmaker both hands, but very weak. L > R. Patient also can wiggle toes to right foot and lift up stump slightly on left leg. Patient had rhonchi throughout and was coughing quite a bit the beginning to middle of shift, and had to be suctioned multiple times. Sputum white and frothy/ thick. Patient now sounds slightly diminished but clear, and has only had scant secretions. Trach care completed by RT. Goncalves draining clear yellow urine; patient has had adequate output. Patient has generalized 1+ edema to extremities. Dressing to coccyx remains C/D/I; patient has been turned at least every 2 hours with pillows used for support. Heel protector to right foot and SCUD to right leg. PEG site intact with dressing in place and has [facility] running at 54 mL/hr, which is the goal rate. Patient has not had any residual. 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 Double lumen PICC to left upper arm; both flush and draw blood.
--- NOTE | 2020-08-15 07:14 | PC.NURSE ---
Patient had large liquid bowel movement. Dressing on coccyx and SCUD changed due to being soiled.
[2020-08-15 07:52] LABS: POC Glucose,Bedside 206 (70-110)
[2020-08-15 07:52] LABS: POC Glucose,Bedside 213 (70-110)
[2020-08-15 07:52] LABS: POC Glucose,Bedside 181 (70-110)
[2020-08-15 07:52] LABS: POC Glucose,Bedside 178 (70-110)
--- NOTE | 2020-08-15 08:02 | XR_ITS ---
PROCEDURE: XR CHEST PORTABLE CLINICAL HISTORY: f/u covid pneumonia COMPARISON: CT CT CHEST WO CON from 07/24/2020 CR XR CHEST PORTABLE from 08/07/2020 CR XR CHEST PORTABLE from 08/08/2020 CR XR CHEST PORTABLE from 08/10/2020 FINDINGS: 9:17 a.m.. Lung apices are clipped. The inferior aspect of the tracheostomy tube tip is in good position. Left upper extremity PICC line tip in the region of the cavoatrial junction. Diffuse bilateral alveolar disease once again noted. Overlying artifact is present. IMPRESSION: No change bilateral pneumonia and tubes and lines Dictated by: Michele Sheth MD 08/15/2020 14:18 Michele Sheth MD in [facility] 08/15/2020 14:18
[2020-08-15 08:44] LABS: Chloride 95 mmol/L (98-107); Sodium 139 mmol/L (136-145)
[2020-08-15 08:45] LABS: Potassium 3.6 mmoL/L (3.5-5.1)
[2020-08-15 08:47] LABS: Alanine Aminotransferase 27 U/L (12-78); Albumin Level 2.8 g/dl (3.5-5.0); Albumin/Globulin Ratio 0.9 (1.1-1.8); Alkaline Phosphatase 123 U/L (38-126); Aspartate Amino Transferase 29 U/L (17-59); Bilirubin,Total 0.4 mg/dl (0.2-1.3); Blood Urea Nitrogen 43 mg/dl (9-20); Creatinine Clearance Estimated 82 mL/min (50-200); Estimated Glomerular Filt Rate 96 ml/min (>60); GFR (African American) 116 ML/MIN (>60); Globulin 3.1 g/dL (1.3-3.2); Total Protein,Serum 5.9 g/dl (6.3-8.2)
[2020-08-15 08:48] LABS: Glucose 177 mg/dl (74-100)
[2020-08-15 08:49] LABS: Basophils # 0.1 K/mm3 (0-0.2); Basophils % 0.5 % (0.1-2.0); Eosinophils # 0.1 K/mm3 (0.0-0.4); Eosinophils % 0.4 % (0.1-12.0); Hematocrit 29.7 % (42.0-52.0); Hemoglobin 9.1 g/dL (14.1-18.0); Lymphocytes # 0.5 K/mm3 (0.7-4.5); Lymphocytes % 2.8 % (10-50); Mean Corpuscular HGB Conc 30.8 g/dL (31.8-35.4); Mean Corpuscular Hemoglobin 28.1 pg (27.0-31.2); Mean Corpuscular Volume 91.2 fl (80-94); Mean Platelet Volume 7.7 fl (7.4-10.4); Monocytes # 1.2 K/mm3 (0.1-1.0); Monocytes % 6.1 % (1.7-9.3); Neutrophils # 17.1 K/mm3 (1.8-7.8); Neutrophils % 90.3 % (37.0-80.0); Platelet Count 268 K/mm3 (142-424); Red Blood Count 3.26 M/mm3 (4.60-6.20); Red Cell Distribution Width 16.5 % (11.5-17.5)
[2020-08-15 08:52] LABS: MANUAL DIFFERENTIAL MANUAL DIFFERENTIAL (MANUAL DIFF)
--- NOTE | 2020-08-15 09:09 | HMH.ACPN2 ---
Internal Medicine - PN: Subj *Date: 08/15/20 *Time: 09:10 Interval history: No events noted overnight. Pt had a trach collar trial for 1 hour yesterday. Exam Vital signs and Labs for Last 24 Hours: Temp Pulse Resp BP Pulse Ox 98.7 F 125 H 25 H 139/79 92 L 08/15/20 08:58 08/15/20 08:58 08/15/20 08:58 08/15/20 08:58 08/15/20 08:58 Laboratory Results - last 24 hr 08/14/20 11:31: POC Glucose 178 H 08/14/20 17:08: POC Glucose 213 H 08/14/20 22:41: POC Glucose 181 H 08/15/20 04:31: POC Glucose 206 H 08/15/20 08:20: WBC 19.0 H, RBC 3.26 L, Hgb 9.1 L, Hct 29.7 L, MCV 91.2, MCH 28.1, MCHC 30.8 L, RDW 16.5, Plt Count 268, MPV 7.7, Neut % (Auto) 90.3 H, Lymph % (Auto) 2.8 L, [place] % (Auto) 6.1, Eos % (Auto) 0.4, Baso % (Auto) 0.5, Neut # (Auto) 17.1 H, Lymph # (Auto) 0.5 L, [place] # (Auto) 1.2 H, Eos # (Auto) 0.1, Baso # (Auto) 0.1 08/15/20 08:20: Sodium 139, Potassium 3.6, Chloride 95 L Vital Signs - 24 hr 08/14/20 09:55 08/14/20 10:00 08/14/20 11:52 Temperature 97.9 F 97.6 F Pulse Rate Pulse Rate [Apical] 96 H 80 Respiratory Rate 21 19 26 H Blood Pressure [Right Arm] 151/86 H 150/83 H 02 Sat by Pulse Oximetry 92 L 93 L 93 L 08/14/20 12:00 08/14/20 13:52 08/14/20 13:53 Temperature 98.2 F Pulse Rate 79 85 Pulse Rate [Apical] 93 H Respiratory Rate 20 Blood Pressure [Right Arm] 144/82 H 02 Sat by Pulse Oximetry 91 L 93 L 08/14/20 15:49 08/14/20 16:00 08/14/20 18:00 Temperature 97.6 F 98.2 F Pulse Rate 92 H Pulse Rate [Apical] 75 99 H Respiratory Rate 22 29 H Blood Pressure [Right Arm] 133/83 137/83 02 Sat by Pulse Oximetry 94 L 94 L 08/14/20 19:55 08/14/20 20:00 08/14/20 20:57 Temperature 97.9 F Pulse Rate 100 H 90 Pulse Rate [Apical] 100 H 82 Respiratory Rate 27 H 32 H 28 H Blood Pressure [Right Arm] 137/77 128/80 02 Sat by Pulse Oximetry 94 L 97 93 L 08/14/20 22:00 08/14/20 22:50 08/14/20 23:00 Temperature Pulse Rate Pulse Rate [Apical] 79 81 Respiratory Rate 28 H 23 30 H Blood Pressure [Right Arm] 125/70 148/90 H 02 Sat by Pulse Oximetry 93 L 95 94 L 08/15/20 00:00 08/15/20 01:00 08/15/20 02:00 Temperature 98.9 F Pulse Rate 80 Pulse Rate [Apical] 74 78 77 Respiratory Rate 26 H 26 H 24 Blood Pressure [Right Arm] 134/79 144/79 H 138/80 02 Sat by Pulse Oximetry 96 97 97 08/15/20 02:55 08/15/20 03:00 08/15/20 03:49 Temperature Pulse Rate 75 Pulse Rate [Apical] 83 Respiratory Rate 22 24 Blood Pressure [Right Arm] 138/74 02 Sat by Pulse Oximetry 96 96 08/15/20 04:00 08/15/20 05:00 08/15/20 06:00 Temperature 98.7 F Pulse Rate Pulse Rate [Apical] 88 93 H 88 Respiratory Rate 28 H 28 H 28 H Blood Pressure [Right Arm] 142/83 H 145/79 H 144/86 H 02 Sat by Pulse Oximetry 94 L 92 L 90 L 08/15/20 06:25 08/15/20 07:00 08/15/20 08:00 Temperature 98.2 F Pulse Rate 102 H Pulse Rate [Apical] 103 H 100 H Respiratory Rate 31 H 30 H 28 H Blood Pressure [Right Arm] 130/80 130/80 02 Sat by Pulse Oximetry 92 L 89 L 87 L 08/15/20 08:58 Temperature 98.7 F Pulse Rate Pulse Rate [Apical] 125 H Respiratory Rate 25 H Blood Pressure [Right Arm] 139/79 02 Sat by Pulse Oximetry 92 L I & O for Last 24 hours: Intake & Output 08/12/20 08/13/20 08/14/20 08/15/20 23:59 23:59 23:59 23:59 Intake Total 194 / 1948 1072 / 1072 2856 / 3442 1588 / 1588 Output Total 2885 / 2935 2275 / 2400 2980 / 3205 1280 / 1280 Balance -937 / -987 -1203 / -1328 -124 / 237 308 / 308 Weight 179 lb 3 oz 174 lb 6 oz 181 lb 9.551 oz 181 lb 7 oz Microbiology Reports for the Last 24 Hours: Microbiology 08/11/20 17:45 Blood - Central Blood Culture - Preliminary Gram Positive Cocci 08/09/20 14:20 Lung,Right Lower Lobe Gram Stain - Final 08/09/20 14:20 Lung,Right Lower Lobe Bronchial Aspirate Culture - Final Staphylococcus aureus Yeast
[2020-08-15 09:26] LABS: Anion Gap 4.6 mEq/L (5-15)
[2020-08-15 09:27] LABS: Carbon Dioxide 43 mmol/L (22.0-30.0)
--- NOTE | 2020-08-15 09:28 | PC.NURSE ---
Dr. Myles @ [facility] and was notified that CO2 is 43.
--- NOTE | 2020-08-15 09:50 | PC.NURSE ---
trach collar trial initiated for 30min per Dr. Myles. New order for trach collar trial 30min BID per Dr. Myles.
--- NOTE | 2020-08-15 09:51 | PC.NURSE ---
Resp Care Note Pt placed on Trach Collar at 98% FiO2 per Dr Shar stone at bedside. Trach collar trial to be done for 30 mins or until agitation requires vent replacement. Susan Jaquez BANQUET SERVER ON CALL [phone]
[2020-08-15 09:56] LABS: Lymphocytes % 10 % (10-50); Monocytes % 2 % (2-9); Neutrophils % 85 % (42-76); Platelet Estimate Normal; RBC Morphology Normal; Total Cells Counted 100
--- NOTE | 2020-08-15 10:12 | PC.NURSE ---
received call from dietary to increase tubefeed rate to 60mL/hr.
--- NOTE | 2020-08-15 10:20 | PC.NURSE ---
trach collar trial stopped and pt put back on the vent with prior settings
--- NOTE | 2020-08-15 10:36 | HMH.PULMPN ---
Internal Medicine - PN: Subj *Date: 08/15/20 *Time: 10:36 Interval history: No acute respiratory events overnight patient respiratory status remained stable. Exam - Constitutional Constitutional:: Present: no acute distress, comfortable - HENMT Exam HENMT: Present: atraumatic - Eye Exam Eyes:: Present: eyelids normal - Neck Exam Neck:: Present: thyroid normal - Respiratory Exam Respiratory:: Present: no respiratory distress, normal respiratory effort, crackles Comments: Bilateral basilar crackles - Cardiovascular Exam Cardiac:: Present: S1, S2 - GI Exam GI:: Present: soft, no hepatosplenomegaly - Skin Exam Skin: Present: warm, no rash - Neurological Exam Neurological: Present: awake - Extremities Exam Extremities: Present: no cyanosis, no clubbing, no edema Assessment and Plan (1) Respiratory failure with hypoxia Status: Acute Qualifiers: Chronicity: acute Qualified Code(s): J96.01 - Acute respiratory failure with hypoxia Category: Medical Code(s): J96.91 - Respiratory failure, unspecified with hypoxia (2) Pneumonia due to COVID-19 virus Status: Acute Category: Medical Code(s): U07.1 - COVID-19; J12.82 - Pneumonia due to coronavirus disease 2019 (3) Anemia Status: Acute Category: Medical Code(s): D64.9 - Anemia, unspecified (4) GI bleed Status: Acute Category: Medical Code(s): K92.2 - Gastrointestinal hemorrhage, unspecified (5) Staphylococcus epidermidis bacteremia Status: Acute Category: Medical Code(s): R78.81 - Bacteremia; B95.7 - Other staphylococcus as the cause of diseases classified elsewhere (6) CAD (coronary artery disease), [place] coronary artery Status: Chronic Qualifiers: [place] vs. transplanted heart: [place] heart Associated angina: without angina Qualified Code(s): I25.10 - Atherosclerotic heart disease of [place] coronary artery without angina pectoris Category: Medical Code(s): I25.10 - Atherosclerotic heart disease of [place] coronary artery without angina pectoris (7) DM2 (diabetes mellitus, type 2) Status: Chronic Qualifiers: Diabetes mellitus buttermaker helper insulin use: without buttermaker helper use Diabetes mellitus complication status: without complication Qualified Code(s): E11.9 - Type 2 diabetes mellitus without complications Category: Medical Code(s): E11.9 - Type 2 diabetes mellitus without complications (8) History of left below knee amputation Status: Chronic Category: Medical Code(s): Z89.512 - Acquired absence of left leg below knee (9) History of osteomyelitis Status: Chronic Category: Medical Code(s): Z87.39 - Personal history of other diseases of the musculoskeletal system and connective tissue (10) Sepsis Status: Acute Qualifiers: Sepsis type: sepsis due to unspecified organism Sepsis acute organ dysfunction status: with acute organ dysfunction Severe sepsis acute organ dysfunction type: acute respiratory failure Acute respiratory failure type: with hypoxia Severe sepsis shock status: with septic shock Qualified Code(s): A41.9 - Sepsis, unspecified organism; R65.21 - Severe sepsis with septic shock; J96.01 - Acute respiratory failure with hypoxia Category: Medical Code(s): A41.9 - Sepsis, unspecified organism (11) Elevated LFTs Status: Acute Category: Medical Code(s): R79.89 - Other specified abnormal findings of blood chemistry (12) Staphylococcal meningitis Status: Acute Category: Medical Code(s): G00.3 - Staphylococcal meningitis (13) Sacral wound Status: Acute Category: Medical Code(s): S31.000A - Unspecified open wound of lower back and pelvis without penetration into retroperitoneum, initial encounter (14) Yeast species isolated but not further identified Status: Acute Category: Medical Code(s): B37.9 - Candidiasis, unspecified - Assessment and plan all Dx Assessment and Plan for all problems:: #COVID-19 pneumonia: #A
[2020-08-15 11:12] LABS: POC Glucose,Bedside 242 (70-110)
--- NOTE | 2020-08-15 12:04 | PC.NURSE ---
received call from Vernonajit Sneed). Gave her additional information regarding vent settings and the weaning process.
--- NOTE | 2020-08-15 13:23 | PC.NURSE ---
DR. MONTANEZ CALLED TO CHECK ON PATIENT. INFORMED MD THAT PATIENT HAS BEEN ACCEPTED TO [facility] IN [place] AND WE ARE WAITING ON INSURANCE APPROVAL FOR DISCHARGE. ALSO INFORMED MD THAT THEY WOULD NOT ACCEPT A WOUND VAC ON PATIENT. STATED HE WOULD CONTINUE DRESSING CHANGES ORDERED.
--- NOTE | 2020-08-15 13:25 | PC.NURSE ---
PHYSCIAL THERAPY AT BEDSIDE WORKING WITH PATIENT.
--- NOTE | 2020-08-15 13:53 | PC.NURSE ---
RESP CARE NOTE Pt placed on Trach collar for trach collar trial of [address] Shar dawson. Susan Jaquez INSPECTION MACHINE TENDER [phone]
[2020-08-15 17:34] LABS: POC Glucose,Bedside 252 (70-110)
[2020-08-15 23:38] LABS: POC Glucose,Bedside 218 (70-110)
[2020-08-16] VITALS (21 sets, daily range): BP systolic 128–146; BP diastolic 72–96; PULSE 79–109; RESP 14–38; TEMP 36.8–37.2; O2SAT 85–95; BMI 23.0; BMI 22.4
[2020-08-16 04:53] LABS: POC Glucose,Bedside 166 (70-110)
--- NOTE | 2020-08-16 08:37 | HMH.ACPN2 ---
Internal Medicine - PN: Subj *Date: 08/16/20 *Time: 08:57 Interval history: No events noted overnight. Exam Vital signs and Labs for Last 24 Hours: Temp Pulse Resp BP Pulse Ox 99 F 106 H 21 128/82 87 L 08/16/20 08:00 08/16/20 08:00 08/16/20 08:00 08/16/20 08:00 08/16/20 08:00 Laboratory Results - last 24 hr 08/15/20 08:20: WBC 19.0 H, RBC 3.26 L, Hgb 9.1 L, Hct 29.7 L, MCV 91.2, MCH 28.1, MCHC 30.8 L, RDW 16.5, Plt Count 268, MPV 7.7, Neut % (Auto) 90.3 H, Lymph % (Auto) 2.8 L, [place] % (Auto) 6.1, Eos % (Auto) 0.4, Baso % (Auto) 0.5, Neut # (Auto) 17.1 H, Lymph # (Auto) 0.5 L, [place] # (Auto) 1.2 H, Eos # (Auto) 0.1, Baso # (Auto) 0.1, Total Counted 100, Neutrophils % (Manual) 85 H, Band Neutrophils % 3.0, Lymphocytes % (Manual) 10, Monocytes % (Manual) 2, Platelet Estimate Normal, RBC Morphology Normal 08/15/20 08:20: Sodium 139, Potassium 3.6, Chloride 95 L, Carbon Dioxide 43 H*, Anion Gap 4.6 L, BUN 43 H, Creatinine 0.80, Estimated Creat Clear 82, Estimated GFR 96, Est GFR ( Amer) 116, Glucose 177 H, Calcium 8.0 L, Total Bilirubin 0.4, AST 29, ALT 27, Alkaline Phosphatase 123, Total Protein 5.9 L, Albumin 2.8 L, Globulin 3.1, Albumin/Globulin Ratio 0.9 L 08/15/20 11:06: POC Glucose 242 H 08/15/20 17:23: POC Glucose 252 H 08/15/20 23:23: POC Glucose 218 H 08/16/20 04:42: POC Glucose 166 H Vital Signs - 24 hr 08/15/20 08:58 08/15/20 09:45 08/15/20 09:58 Temperature 98.7 F 97.8 F Pulse Rate Pulse Rate [Apical] 125 H 73 Respiratory Rate 25 H 28 H Blood Pressure [Right Arm] 139/79 147/95 H 02 Sat by Pulse Oximetry 92 L 92 L 93 L 08/15/20 10:21 08/15/20 11:00 08/15/20 12:00 Temperature 97.4 F L 98.8 F Pulse Rate 80 Pulse Rate [Apical] 73 80 Respiratory Rate 28 H 23 25 H Blood Pressure [Right Arm] 140/79 145/76 H 02 Sat by Pulse Oximetry 93 L 94 L 95 08/15/20 13:00 08/15/20 13:07 08/15/20 13:52 Temperature 97.2 F L Pulse Rate 77 Pulse Rate [Apical] 80 Respiratory Rate 25 H Blood Pressure [Right Arm] 145/76 H 02 Sat by Pulse Oximetry 95 96 08/15/20 14:00 08/15/20 14:22 08/15/20 15:00 Temperature 97.3 F L 97.2 F L Pulse Rate Pulse Rate [Apical] 83 83 Respiratory Rate 32 H 32 H 26 H Blood Pressure [Right Arm] 133/72 124/74 02 Sat by Pulse Oximetry 95 93 L 95 08/15/20 16:00 08/15/20 16:59 08/15/20 18:00 Temperature 96.8 F L 98.6 F 99.2 F Pulse Rate 85 Pulse Rate [Apical] 85 91 H 94 H Respiratory Rate 26 H 31 H 34 H Blood Pressure [Right Arm] 132/77 130/74 127/76 02 Sat by Pulse Oximetry 96 95 95 08/15/20 18:42 08/15/20 19:07 08/15/20 19:45 Temperature 99.4 F 99.0 F Pulse Rate 96 H Pulse Rate [Apical] 97 H 100 H Respiratory Rate 34 H 35 H 36 H Blood Pressure [Right Arm] 131/75 129/75 02 Sat by Pulse Oximetry 95 95 96 08/15/20 19:53 08/15/20 20:52 08/15/20 21:41 Temperature Pulse Rate 101 H Pulse Rate [Apical] 88 76 Respiratory Rate 35 H 29 H Blood Pressure [Right Arm] 124/76 130/75 02 Sat by Pulse Oximetry 96 96 08/15/20 22:17 08/15/20 23:00 08/15/20 23:37 Temperature 98.6 F Pulse Rate Pulse Rate [Apical] 80 82 Respiratory Rate 28 H 27 H 32 H Blood Pressure [Right Arm] 127/76 125/77 02 Sat by Pulse Oximetry 96 95 96 08/15/20 23:43 08/16/20 00:36 08/16/20 01:27 Temperature Pulse Rate 80 Pulse Rate [Apical] 83 79 Respiratory Rate 32 H 38 H Blood Pressure [Right Arm] 128/79 130/72 02 Sat by Pulse Oximetry 95 92 L 08/16/20 01:52 08/16/20 02:34 08/16/20 04:00 Temperature 99 F Pulse Rate 80 Pulse Rate [Apical] 87 86 Respiratory Rate 22 33 H 30 H Blood Pressure [Right Arm] 133/72 135/73 02 Sat by Pulse Oximetry 94 L 95 94 L 08/16/20 05:00 08/16/20 05:52 08/16/20 06:24 Temperature Pulse Rate Pulse Rate [Apical] 89 89 92 H Respiratory Rate 28 H 28 H 32 H Blood Pressure [Right Arm] 136/77 137/74 137/78 02 Sat by Pulse Oximetry 93 L 92 L 93 L 08/16/20 06:28 08/16/20
--- NOTE | 2020-08-16 12:55 | [facility].DCSUM ---
General - General Admission date:: 06/27/20 Discharge date: 08/16/20 HPI HPI: This 69-year-old white male was admitted with COVID-19 pneumonia with worsening symptoms of shortness of air and cough. He had a telehealth visit on 06/25/2020 with MARY Henderson. He had been exposed a week prior to that to someone who was positive for Covid subsequently. At the point of that evaluation he had had a sore throat for 2 days and a cough for 2 days. His fever had gone to 101. He had some bilateral ear pain and rhinorrhea. He complained of frontal headache. He had chest congestion with occasional tightness in the chest. He also complained of body aches. He had had a decrease in appetite. He presented to the emergency room on this day of admission with worsening shortness of air. He also had experienced some dizziness and was found to be slightly dehydrated with orthostatic changes in blood pressure. He received IV fluids and dexamethasone in the emergency room and was admitted for further evaluation and treatment. The patient is diabetic and has been fairly well controlled lately. He has a left BK amputation from 2009 from an injury to the leg with subsequent infection. The patient has not been a smoker. Hospital Course Hospital Course: The patient's initial chest x-ray showed bilateral pneumonia. He was started on Covid protocol and pulmonology was consulted. He was also started on Zithromax and Rocephin for community-acquired pneumonia. He had a chest CTA which showed no evidence of PE but bilateral groundglass infiltrates consistent with COVID-19 pneumonia. The patient's respiratory status continued to worsen. His oxygen requirement increased to 6 L nasal cannula with saturations in the 80s. He was given some Lasix and escalated to high flow nasal cannula. He had a repeat chest x-ray showing a worsening bilateral pneumonia. The patient was not able to maintain his oxygen saturations and was placed on BiPAP. His CPK was significantly elevated consistent with a systemic inflammatory response from Covid. His cardiac enzymes were negative. He maintained saturations greater than 90 on BiPAP and came back to Vapotherm in order to eat. His antibiotics were changed to Zosyn and vancomycin as his sputum was growing gram-positive cocci. He then struggled to maintain oxygen saturations greater than 90 on BiPAP with 100% FiO2. His PO2 level was 44 on a blood gas. His inspiratory pressure was increased and his expiratory pressure was increased as well. A repeat chest x-ray was ordered and it was felt he may need to be intubated. The repeat chest x-ray showed resolving bilateral pneumonic infiltrates. The patient improved slightly and was able to use Vapotherm for supplemental oxygen with 100% FiO2. His blood culture showed no growth and his sputum showed normal respiratory charles. His MRSA culture was negative. His respiratory status gradually worsened again and pulmonology discussed the need for intubation with the patient. He was a DNR but changed his CODE STATUS to full code and agreed to be intubated if needed. He had a repeat chest x-ray on 07/04/2020 showing worsening bilateral pneumonia. His oxygen began dropping again and he did have to be intubated. After intubation, he had elevated blood pressure and heart rate. He was given a dose of IV metoprolol with improvement. Later in the day his blood pressure dropped and he was given an IV fluid bolus but remained hypotensive. He had to be started on a Levophed drip and his blood pressure normalized. He also had an NG tube placed. He was given convalescent plasma. His white blood cell count increased and he became febrile. He had a repeat chest x-ray on 07/08/2020 showing bilateral infiltrates with slight progressive improvement. On 07/08/2020, he began having some blood from NG aspirate. His Lovenox was held and he was started on Protonix. He developed some tachycardia and had to be gi
--- NOTE | 2020-08-16 14:58 | [facility].PULMPN ---
Internal Medicine - PN: Subj *Date: 08/16/20 *Time: 14:58 Interval history: No acute respiratory events overnight. Exam - Constitutional Constitutional:: Present: no acute distress, comfortable - HENMT Exam HENMT: Present: atraumatic - Eye Exam Eyes:: Present: eyelids normal - Neck Exam Neck:: Present: thyroid normal - Respiratory Exam Respiratory:: Present: no respiratory distress, normal respiratory effort, crackles - Cardiovascular Exam Cardiac:: Present: S1, S2 - GI Exam GI:: Present: soft - Skin Exam Skin: Present: warm, no rash - Neurological Exam Neurological: Present: awake - Extremities Exam Extremities: Present: no cyanosis, no clubbing Assessment and Plan (1) Respiratory failure with hypoxia Status: Acute Qualifiers: Chronicity: acute Qualified Code(s): J96.01 - Acute respiratory failure with hypoxia Category: Medical Code(s): J96.91 - Respiratory failure, unspecified with hypoxia (2) Pneumonia due to COVID-19 virus Status: Acute Category: Medical Code(s): U07.1 - COVID-19; J12.82 - Pneumonia due to coronavirus disease 2019 (3) Anemia Status: Acute Category: Medical Code(s): D64.9 - Anemia, unspecified (4) GI bleed Status: Acute Category: Medical Code(s): K92.2 - Gastrointestinal hemorrhage, unspecified (5) Staphylococcus epidermidis bacteremia Status: Acute Category: Medical Code(s): R78.81 - Bacteremia; B95.7 - Other staphylococcus as the cause of diseases classified elsewhere (6) CAD (coronary artery disease), [place] coronary artery Status: Chronic Qualifiers: [place] vs. transplanted heart: [place] heart Associated angina: without angina Qualified Code(s): I25.10 - Atherosclerotic heart disease of [place] coronary artery without angina pectoris Category: Medical Code(s): I25.10 - Atherosclerotic heart disease of [place] coronary artery without angina pectoris (7) DM2 (diabetes mellitus, type 2) Status: Chronic Qualifiers: Diabetes mellitus jail insulin use: without jail use Diabetes mellitus complication status: without complication Qualified Code(s): E11.9 - Type 2 diabetes mellitus without complications Category: Medical Code(s): E11.9 - Type 2 diabetes mellitus without complications (8) History of left below knee amputation Status: Chronic Category: Medical Code(s): Z89.512 - Acquired absence of left leg below knee (9) History of osteomyelitis Status: Chronic Category: Medical Code(s): Z87.39 - Personal history of other diseases of the musculoskeletal system and connective tissue (10) Sepsis Status: Acute Qualifiers: Sepsis type: sepsis due to unspecified organism Sepsis acute organ dysfunction status: with acute organ dysfunction Severe sepsis acute organ dysfunction type: acute respiratory failure Acute respiratory failure type: with hypoxia Severe sepsis shock status: with septic shock Qualified Code(s): A41.9 - Sepsis, unspecified organism; R65.21 - Severe sepsis with septic shock; J96.01 - Acute respiratory failure with hypoxia Category: Medical Code(s): A41.9 - Sepsis, unspecified organism (11) Elevated LFTs Status: Acute Category: Medical Code(s): R79.89 - Other specified abnormal findings of blood chemistry (12) Staphylococcal meningitis Status: Acute Category: Medical Code(s): G00.3 - Staphylococcal meningitis (13) Sacral wound Status: Acute Category: Medical Code(s): S31.000A - Unspecified open wound of lower back and pelvis without penetration into retroperitoneum, initial encounter (14) Yeast species isolated but not further identified Status: Acute Category: Medical Code(s): B37.9 - Candidiasis, unspecified - Assessment and plan all Dx Assessment and Plan for all problems:: #COVID-19 pneumonia: #Acute hypoxic respiratory failure requiring mechanical ventilation: 69-year-old no prior respiratory complaints never
[2020-08-16 17:42] LABS: POC Glucose,Bedside 345 (70-110)
== END 2020-08-16 16:09 | disposition short-term general hospital (02) | DRG 3 ==
LOC: ER 15:49 → ICU 06-28 09:28
PROVIDERS: Internal Medicine Gastroenterology; Internal Medicine Pulmonary Disease; Nurse Practitioner Family; Otolaryngology; Admitting Provider Family Medicine; Emergency Provider Emergency Medicine; PCP Family Medicine; Visit Provider Family Medicine
PROC: 0DJ08ZZ Inspection of Upper Intestinal Tract, Via Natural or Artificial Opening Endoscopic (ICD-10-PCS; CPT 43235; principal; 2020-07-23 15:30)
PROC: (CPT 31502; principal; 2020-07-26 10:00)
PROC: 0B113F4 Bypass Trachea to Cutaneous with Tracheostomy Device, Percutaneous Approach (ICD-10-PCS; CPT 31502; principal; 2020-07-31 10:30)
PROC: 0DH63UZ Insertion of Feeding Device into Stomach, Percutaneous Approach (ICD-10-PCS; CPT 43246; principal; 2020-08-06 13:30)
DX: U07.1 COVID-19 (principal); L89.153 Pressure ulcer of sacral region, stage 3; J12.82 Pneumonia due to coronavirus disease 2019; J96.01 Acute respiratory failure with hypoxia; G00.3 Staphylococcal meningitis; R65.21 Severe sepsis with septic shock; K29.01 Acute gastritis with bleeding; R78.81 Bacteremia; E11.9 Type 2 diabetes mellitus without complications; Z89.512 Acquired absence of left leg below knee; I10 Essential (primary) hypertension; I25.10 Atherosclerotic heart disease of native coronary artery without angina pectoris; Z79.84 Long term (current) use of oral hypoglycemic drugs; Z79.82 Long term (current) use of aspirin; Z79.02 Long term (current) use of antithrombotics/antiplatelets; Z95.5 Presence of coronary angioplasty implant and graft
CPT/HCPCS: 36620; 31500; 94002; 31600; 11042; 31622; 43246; 43239; 43255; 36556; 36415; 36569; 62270; 70450; 70486; 71045; 71250; 71275; 80048; 80053; 80202; 80305; 81001; 82272; 82550; 82553; 82607; 82728; 82803; 82945; 82962; 83036; 83605; 83735; 84100; 84132; 84145; 84155; 84439; 84443; 84481; 84484; 85007; 85014; 85018; 85025; 85044; 85378; 85384; 85610; 85730; 86328; 86592; 86850; 86900; 86901; 87040; 87070; 87077; 87081; 87102; 87186; 87205; 87206; 87529; 88305; 89051; 93005; 93306; 93308; 93970; 94003; 94640; 94660; 94760; 94761; 95822; 96365; 96367; 96375; 97110; 97140; 97163; 97166; 97530; 99285; C1751; G0328; J0456; J1956; J2020; J2543; J2704; J3370; P9016; P9017; Q9967; U0003